=== PATIENT | male | born 1970 | race Caucasian/White ===

== ENCOUNTER 2017-11-17 22:21 | Emergency (ER) | payer SELFPAY ==
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
[2017-11-17] MEDS ORDERED: HYDROCODONE/APAP 7.5/325 MG TAB ONE (23:14)
[2017-11-17] MEDS ORDERED: MUPIROCIN 2% OINT 22GM TUBE TOP ONE (23:15)
[2017-11-17 23:31] VITALS: BP 121/84; O2SAT 98
== END 2017-11-17 23:21 | disposition home or self-care (01) ==
LOC: ER 22:21
DX: S90.822A Blister (nonthermal), left foot, initial encounter (principal); X58.XXXA Exposure to other specified factors, initial encounter; Y93.89 Activity, other specified; Y92.89 Other specified places as the place of occurrence of the external cause; Z79.82 Long term (current) use of aspirin; I10 Essential (primary) hypertension; I25.2 Old myocardial infarction; F31.9 Bipolar disorder, unspecified; F32.9 Major depressive disorder, single episode, unspecified
CPT/HCPCS: 99283

== ENCOUNTER 2017-12-30 18:15 | Emergency (ER) | payer SELFPAY ==
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
--- OUTSIDE RECORDS SUMMARY | 2017-12-30 18:16 | XMS REPORT | Clinical Summary ---
:1970 Author Organization [facility] Address [address] [place] [address] Phone Care Team Providers Name Role Phone Unavailable Primary Care Provider Unavailable Allergies Active Allergy Reactions Severity Noted Date Comments Hydrocodone-Acetaminophen Rash High 11/26/2017 Current Medications Prescription Sig. Disp. Refills Start Date End Date Status venlafaxine Take 150 mg by Active (EFFEXOR-XR) 150 mouth daily. MG 24 hr capsule gabapentin Take 300 mg by Active (NEURONTIN) 300 MG mouth 4 (four) capsule times daily. risperiDONE Take 3 mg by Active (RISPERDAL) 3 MG mouth daily. tablet aspirin 81 MG Take 81 mg by Active chewable tablet mouth daily. carvedilol (COREG) Take 1 tablet 30 tablet 0 11/27/2017 11/27/2018 Active 12.5 MG tablet (12.5 mg total) by mouth 2 (two) times daily with breakfast and dinner. propranolol Take 30 mg by 11/27/2017 Discontinued (INDERAL) 20 MG mouth 2 (two) tablet times daily. Active Problems Problem Noted Date Chest pain 11/27/2017 Anxiety 11/27/2017 Essential hypertension 11/27/2017 Bipolar 1 disorder (HCC) 11/27/2017 Migraine 11/27/2017 Tobacco abuse 11/27/2017 Encounters Date Type Specialty Care Team Description 11/27/2017 Orders Only General Internal Medicine 11/26/2017 - Hospital Encounter Cardiology Jeffreyan, Bipolar 1 disorder 11/27/2017 Ashkan Valdes ([facility]) after 12/29/2016 Family History Medical History Relation Name Comments Cancer Father Heart disease Father No Known Problem Mother Relation Name Status Comments Father Mother Social History Tobacco Use Types Packs/Day Years Used Date Current Every Day Smoker 0.5 39 Smokeless Tobacco: Current User Chew Tobacco Cessation: Counseling Given: Yes Alcohol Use Drinks/Week oz/Week Comments No Sex Assigned at Date Recorded Not on file Last Filed Vital Signs Vital Sign Reading Time Taken Blood Pressure 126/80 11/27/2017 3:46 PM CDT Pulse 57 11/27/2017 3:46 PM CDT Temperature 36.3 C (97.3 F) 11/27/2017 3:46 PM CDT Respiratory Rate 18 11/27/2017 3:46 PM CDT Oxygen Saturation 96% 11/27/2017 3:46 PM CDT Inhaled Oxygen Concentration - - Weight 65 kg (143 lb 4.8 oz) 11/27/2017 7:39 AM CDT Height 182.9 cm (6') 11/26/2017 9:47 PM CDT Body Mass Index 19.43 11/27/2017 7:39 AM CDT Plan of Treatment Not on file Results EKG-SCANNED (11/30/2017 11:21 AM)RHYTHM STRIP - SCAN (11/30/2017 11:21 AM) ECHOCARDIOGRAM REPORT - SCAN (11/29/2017 8:50 AM)Transthoracic 2D echo w/ doppler (cw/pw/color) (11/27/2017 5:44 PM) Component Value Ref Range Ejection Fraction Specimen Performing Laboratory [facility] ECHO HEARTLAB MKCKESSON CPACS Narrative Transthoracic Echocardiography Report (TTE) Demographics Patient Name ABBIE TABARES Date of Study 11/27/2017 [id number] Male Visit Number [id number] Unknown [id number] Room Number [id number] Number Date of Birth1970Referring Physician BANG Cantu Age47 year(s)Step Down Specialist Abdifatah Arredondo [facility] AnalystIzoldzhane Buitrago Interpreting Leanna Johnson MD Procedure Type of Study TTE procedure:2DECHO W DOPPLER(CW/PW/COLOR) (Routine) Indications:Acute Chest Pain/ Suspected CAD. Clinical History HGB 12.3 HCT 37.8 % Diabetes Hypertension Myocardial Infarction Height: 72 inches Weight: 64.86 kg (143 lbs) BSA: 1.85 m^2 BMI: 19.39 kg/m^2 HR: 58 bpm BP: 117/72 mmHg Summary The left ventricle is chamber size (by PSLAX dimension) is normal (male - LVIDd 4.2-5.8cm) . Normal LV wall thickness. The following segment(s) appear possibly hypokinetic: basal septum,basal inferior . The other segments have low normal contractility. Global LV systolic function mildly reduced . LVEF by Salcedo's method of disk assessment is low normal (50-55%) . Normal (cardiac index 2-3 L/min/m2) cardiac output state at rest is noted. Grade 2 diastolic dysfunction (moderately increased LA pressure). No pericardial effusion is visualized. Aortic root size (SInus of Valsalva diameter) is normal . A trace of tricuspid regurgitation. Estimated peak systolic PA pressure is 25-30 mmHg . Previous Study No prior exam available for comparison. Signature Findings Left Ventricle The left ventricle is chamber size (by PSLAX dimension) is normal (male - LVIDd 4.2-5.8cm) . Normal LV wall thickness. The following segment(s) appear possibly hypokinetic: basal septum,basal inferior . The other segments have low normal contractility. Global LV systolic function mildly reduced . LVEF by Salcedo's method of disk assessment is low normal (50-55 %) . Normal (cardiac index 2-3 L/min/m2) cardiac output state at rest is noted. Grade 2 diastolic dysfunction (moderately increased LA pressure). Left AtriumLA size is moderately enlarged (42-48 ml/m2 ) . Right VentricleThe right ventricular chamber size and systolic function are within normal limits. Right Atrium RA cavity size is normal . Aortic Valve Normal AoV structure. Mitral Valve Normal MV structure. Tricuspid ValveTV structure is normal. A trace of tricuspid regurgitation. Estimated peak systolic PA pressure is 25-30 mmHg . Pulmonic Valve Normal PV structure and function. AortaAortic root size (SInus of Valsalva diameter) is normal . PericardiumNo pericardial effusion is visualized. IVC/SVC/PA/PV/PleuralThe estimated RA pressure by IVC dynamics 5-10mmHg . Chambers/Structures Left Atrium LA Volume: 81.23 ml LA Area: 18.32 cm^ 2 LA Vol. Index: 44 ml/m^2 Left Ventricle LVIDd: 4.85 cmLVEDV: 108.75 ml LV Septum Diastolic: 0.84 cm LV PW Diastolic: 0.84 cm LVEDV Salcedo's:122.24 ml LVESV Salcedo's:61.12 ml LVEF Salcedo's: 50 % LVEDVI: 66 ml/m^2 LVESVI: 33 ml/m^2 LVOT Diameter: 2.13 cm Right Ventricle TAPSE: 1.75 cm Aorta Ao Root S of [place]il[place].: 3.25 cm Doppler/Quantitative Measurements Mitral Valve MV Peak E-Wave: 0.79 m/sMV Peak A-Wave: 0.45 m /s E/A Ratio: 1.77 Peak Gradient: 2.52 mmHg Deceleration Time: 218 msec MV Salbador. Peak: Tissue Doppler E' Lateral Velocity: 0.12 m/s E/E': 6.87 Aortic Valve Peak Velocity: 1.43 m/sMean Velocity: 1.04 m/s Peak Gradient: 8.16 mmHg Mean Gradient: 4.88 mmHg AV Area (continuity): 2.11 cm^2 AV VTI: 30.36 cm AV DVI: 0.59 LVOT Peak Velocity: 0.88 m/s Peak Gradient: 3.08 mmHg Mean Velocity: 0.59 m/s Mean Gradient: 1.63 mmHg LVOT Diameter: 2.13 cmLVOT VTI: 17.96 cm LVOT Area: 3.56 cm^2LVOT SV:63.96 ml LVOT CO: 3.71 l/min LVOT CI: 2.01 l/min/m^2 Tricuspid Valve TR Velocity: 2.1 m/s TR Gradient: 17.58 mmHg Procedure Note Interface, External Ris In - 11/29/2017 8:24 AM CDT Transthoracic Echocardiography Report (TTE) Demographics Patient Name ABBIE TABARES Date of Study 11/27/2017 Gender Male Visit Number [id number] Race Unknown Room Number 1455 Number Date of 1970 Referring Physician BANG Cantu Age 47 year(s) Step Down Specialist Abdifatah Arredondo [facility] Paratransit Operator Gabo Buitrago Interpreting Usama Johnson Physician Procedure Type of Study TTE procedure:2DECHO W DOPPLER(CW/PW/COLOR) (Routine) Indications:Acute Chest Pain/ Suspected CAD. Clinical History HGB 12.3 HCT 37.8 % Diabetes Hypertension Myocardial Infarction Height: 72 inches Weight: 64.86 kg (143 lbs) BSA: 1.85 m^2 BMI: 19.39 kg/m^2 HR: 58 bpm BP: 117/72 mmHg Summary The left ventricle is chamber size (by PSLAX dimension) is normal (male - LVIDd 4.2-5.8cm) . Normal LV wall thickness. The following segment(s) appear possibly hypokinetic: basal septum,basal inferior . The other segments have low normal contractility. Global LV systolic function mildly reduced . LVEF by Salcedo's method of disk assessment is low normal (50-55%) . Normal (cardiac index 2-3 L/min/m2) cardiac output state at rest is noted. Grade 2 diastolic dysfunction (moderately increased LA pressure). No pericardial effusion is visualized. Aortic root size (SInus of Valsalva diameter) is normal . A trace of tricuspid regurgitation. Estimated peak systolic PA pressure is 25-30 mmHg . Previous Study No prior exam available for comparison. Signature Findings Left Ventricle The left ventricle is chamber size (by PSLAX dimension) is normal (male - LVIDd 4.2-5.8cm) . Normal LV wall thickness. The following segment(s) appear possibly hypokinetic: basal septum,basal inferior . The other segments have low normal contractility. Global LV systolic function mildly reduced . LVEF by Salcedo's method of disk assessment is low normal (50-55%) . Normal (cardiac index 2-3 L/min/m2) cardiac output state at rest is noted. Grade 2 diastolic dysfunction (moderately increased LA pressure). Left Atrium LA size is moderately enlarged (42-48 ml/m2) . Right Ventricle The right ventricular chamber size and systolic function are within normal limits. Right Atrium RA cavity size is normal . Aortic Valve Normal AoV structure. Mitral Valve Normal MV structure. Tricuspid Valve TV structure is normal. A trace of tricuspid regurgitation. Estimated peak systolic PA pressure is 25-30 mmHg . Pulmonic Valve Normal PV structure and function. Aorta Aortic root size (SInus of Valsalva diameter) is normal . Pericardium No pericardial effusion is visualized. IVC/SVC/PA/PV/Pleural The estimated RA pressure by IVC dynamics 5-10mmHg . Chambers/Structures Left Atrium LA Volume: 81.23 ml LA Area: 18.32 cm^2 LA Vol. Index: 44 ml/m^2 Left Ventricle LVIDd: 4.85 cm LVEDV:108.75 ml LV Septum Diastolic: 0.84 cm LV PW Diastolic: 0.84 cm LVEDV Salcedo's:122.24 ml LVESV Salcedo's:61.12 ml LVEF Salcedo's: 50 % LVEDVI: 66 ml/m^2 LVESVI: 33 ml/m^2 LVOT Diameter: 2.13 cm Right Ventricle TAPSE: 1.75 cm Aorta Ao Root S of [place].: 3.25 cm Doppler/Quantitative Measurements Mitral Valve MV Peak E-Wave: 0.79 m/s MV Peak A-Wave: 0.45 m/s E/A Ratio: 1.77 Peak Gradient: 2.52 mmHg Deceleration Time: 218 msec MV Salbador. Peak: Tissue Doppler E' Lateral Velocity: 0.12 m/s E/E': 6.87 Aortic Valve Peak Velocity: 1.43 m/s Mean Velocity: 1.04 m/s Peak Gradient: 8.16 mmHg Mean Gradient: 4.88 mmHg AV Area (continuity): 2.11 cm^2 AV VTI: 30.36 cm AV DVI: 0.59 LVOT Peak Velocity: 0.88 m/s Peak Gradient: 3.08 mmHg Mean Velocity: 0.59 m/s Mean Gradient: 1.63 mmHg LVOT Diameter: 2.13 cm LVOT VTI: 17.96 cm LVOT Area: 3.56 cm^2 LVOT SV:63.96 ml LVOT CO: 3.71 l/min LVOT CI: 2.01 l/min/m^2 Tricuspid Valve TR Velocity: 2.1 m/s TR Gradient: 17.58 mmHg NM myocardial perfusion PET (rest and stress) (11/27/2017 9:27 AM) Specimen Performing Laboratory [facility] FINAL REPORT PROCEDURE: Rest/Stress MYOCARDIAL PERFUSION PET with regadenoson\XA9\ CPT CODE: 47598 INDICATION: Chest pain, multiple risk factors for CAD HISTORY: Cardiac risk factors: Diabetes, hypertension, tobacco. Other cardiovascular history: Previous OK. Recent cardiac symptoms: Chest pain. PROTOCOL: Limited [...] is greater than 70%. IMPRESSION: 1. Normal study.2. Appropriate pharmacologic stress.3. Normal myocardial perfusion.4. Normal resting LV function. No deterioration of function is noted with pharmacologic stress.5. Normal extracardiac tracer distribution.6. No previous [facility] study for comparison. NONINVASIVE RISK STRATIFICATION: The above findings are considered low risk (<1% annual mortality rate) based on the following criterion: - Normal or small myocardial perfusion defect at rest or with stress ([facility]. 2012;59(9):584-01.) Signed: Bekah Love MD Report Verified Date/Time:11/27/2017 15:30:18 Reading Location: [address] Reading Room Procedure Note Interface, External Ris In - 11/27/2017 3:32 PM CDT FINAL REPORT PROCEDURE: Rest/Stress MYOCARDIAL PERFUSION PET with regadenoson\XA9\ CPT CODE: 98654 INDICATION: Chest pain, multiple risk factors for CAD HISTORY: Cardiac risk factors: Diabetes, hypertension, tobacco. Other cardiovascular history: Previous OK. Recent cardiac symptoms: Chest pain. PROTOCOL: Limited [...] Normal extracardiac tracer distribution. 6. No previous [facility] study for comparison. NONINVASIVE RISK STRATIFICATION: The above findings are considered low risk (<1% annual mortality rate) based on the following criterion: - Normal or small myocardial perfusion defect at rest or with stress ([facility]. 2012;59(9):857-81.) Signed: Bekah Love MD Report Verified Date/Time: 11/27/2017 15:30:18 Reading Location: [place] [id number] Reading Room Treadmill tolerance(Non-Nuclear Treadmill) (11/27/2017 9:22 AM) Specimen Performing Laboratory [employer] Narrative Protocol Name Regadenoson Time In Exercise Phase 00:01:00 Max. Systolic BP 87 mmHg Max Diastolic BP 54 mmHg Max Heart Rate 87 BPM Max Predicted Heart Rate 172 BPM Reason For Termination Predetermined end point Reason for Test Chest Pain Target HR Formula (220 - Age)*100% Arrhythmias Premature Ventricular Contractions Resting ECG sinus bradycardia ST Changes No Significant Changes Overall Impression Indeterminate due to pharmacological stress Chest Pain CHEST TIGHTNESS HR Response To Exercise BP Response To Exercise ASA Atorvastatin propranolol Confirmed by fellow Bakari Xiong ([id number]) on 11/27/2017 10:55:09 AM Confirmed by Deshawn Celestin ([id number]) on 12/03/2017 4:58:11 PM Procedure Note Interface, External Ris In - 12/03/2017 4:58 PM CDT Protocol Name Regadenoson Time In Exercise Phase 00:01:00 Max. Systolic BP 87 mmHg Max Diastolic BP 54 mmHg Max Heart Rate 87 BPM Max Predicted Heart Rate 172 BPM Reason For Termination Predetermined end point Reason for Test Chest Pain Target HR Formula (220 - Age)*100% Arrhythmias Premature Ventricular Contractions Resting ECG sinus bradycardia ST Changes No Significant Changes Overall Impression Indeterminate due to pharmacological stress Chest Pain CHEST TIGHTNESS HR Response To Exercise BP Response To Exercise ASA Atorvastatin propranolol Confirmed by fellow Bakari Xiong ([id number]) on 11/27/2017 10:55:09 AM Confirmed by Deshawn Celestin ([id number]) on 12/03/2017 4:58:11 PM ECG 12 lead (11/27/2017 9:20 AM)Only the most recent of3 resultswithin the time period is included. Specimen Performing Laboratory [facility] Narrative Ventricular Rate 57 BPM Atrial Rate 57 BPM P-R Interval 222 ms QRS Duration 90 ms Q-T Interval 436 ms QTC Calculation(Bazett) 424 ms P Mobile 81 degrees R Mobile 91 degrees T Mobile 83 degrees Sinus bradycardia with 1st degree A-V block Rightward axis Borderline ECG Confirmed by MD BERRY JOSEPH P ([id number]) on 11/28/2017 7:06:11 AM Procedure Note Interface, External Ris In - 11/28/2017 7:06 AM CDT Ventricular Rate 57 BPM Atrial Rate 57 BPM P-R Interval 222 ms QRS Duration 90 ms Q-T Interval 436 ms QTC Calculation(Bazett) 424 ms P Mobile 81 degrees R Mobile 91 degrees T Mobile 83 degrees Sinus bradycardia with 1st degree A-V block Rightward axis Borderline ECG Confirmed by MD BERRY JOSEPH P ([id number]) on 11/28/2017 7:06:11 AM CBC with platelet count + automated diff (11/27/2017 5:48 AM)Only the most recent of2 resultswithin the time period is included. Component Value Ref Range WBC 9.5 3.5 - 10.5 K/L RBC 3.94 (L) 4.63 - 6.08 M/L Hemoglobin 12.3 (L) 13.7 - 17.5 GM/DL Hematocrit 37.8 (L) 40.1 - 51.0 % MCV 95.9 (H) 79.0 - 92.2 fL MCH 31.2 25.7 - 32.2 pg MCHC 32.5 32.3 - 36.5 GM/DL RDW 13.8 11.6 - 14.4 % Platelets 187 150 - 450 K/CU MM MPV 10.5 9.4 - 12.4 fL nRBC 0 0 - 0 /100 WBC % Neutros 56 % % Lymphs 32 % % Monos 7 % % Eos 5 % % Baso 1 % # Neutros 5.28 1.78 - 5.38 K/L # Lymphs 3.03 1.32 - 3.57 K/L # Monos 0.69 0.30 - 0.82 K/L # Eos 0.45 0.04 - 0.54 K/L # Baso 0.06 0.01 - 0.08 K/L Immature Granulocytes-Relative 0 0 - 1 % Specimen Performing Laboratory Blood - Arm, Right [facility] [address] [place] [address] Troponin I (11/27/2017 5:48 AM)Only the most recent of2 resultswithin the time period is included. Component Value Ref Range Troponin I <0.01 0.00 - 0.03 ng/mL Specimen Performing Laboratory Blood - Arm, [address] [address] Narrative Troponin I (TnI) levels must be interpreted [...] failure, acidosis, acute neurological disease, and persistent tachyarrhythmia. CBC with platelet count + automated diff (11/27/2017 5:48 AM)Only the most recent of2 resultswithin the time period is included. Specimen Performing Laboratory Blood Narrative The following orders were created for panel order CBC with platelet count + automated diff. Procedure Abnormality Status --------- ------ CBC with platelet count ...[[id number]]AbnormalFinal result Please view results for these tests on the individual orders. Magnesium (11/27/2017 5:48 AM)Only the most recent of2 resultswithin the time period is included. Component Value Ref Range Magnesium 2.7 (H) 1.6 - 2.6 mg/dL Specimen Performing Laboratory Blood - Arm, [address] [address] Basic metabolic panel (11/27/2017 5:48 AM)Only the most recent of2 resultswithin the time period is included. Component Value Ref Range Sodium 136 136 - 145 meq/L Potassium 3.9 3.5 - 5.1 meq/L Chloride 108 (H) 98 - 107 meq/L CO2 23 22 - 29 meq/L BUN 12 7 - 21 mg/dL Creatinine 0.85 0.57 - 1.25 mg/dL Glucose 92 70 - 105 mg/dL Calcium 8.5 8.4 - 10.2 mg/dL EGFR Comment: INSUFFICIENT CLINICAL DATA TO CALCULATE mL/min/1.73 sq m ESTIMATED GFR. Specimen Performing Laboratory Blood - Arm, Right [address] [address] Hemoglobin A1c (11/27/2017 12:49 AM) Component Value Ref Range Hemoglobin A1C 4.9 4.3 - 6.1 % Specimen Performing Laboratory Blood [address] [address] Hepatic function panel (11/27/2017 12:49 AM) Component Value Ref Range Protein, Total 6.1 6.0 - 8.3 gm/dL Albumin 3.8 3.5 - 5.0 g/dL Total Bilirubin 0.2 0.2 - 1.2 mg/dL Bilirubin, Direct 0.1 0.1 - 0.5 mg/dL Alkaline Phosphatase 108 40 - 150 U/L AST 9 5 - 34 U/L ALT 8 6 - 55 U/L Specimen Performing Laboratory Blood [address] [address] Lipid panel (11/27/2017 12:49 AM) Component Value Ref Range Triglycerides 130 mg/dL Cholesterol 164 mg/dL HDL 31 mg/dL LDL Calculated 107 mg/dL Specimen Performing Laboratory Blood [address] [address] Narrative Triglyceride Reference Range: Low Risk <150 [id number] High Risk 200-499 Very High Risk>=500 Cholesterol Reference Range: Low Risk <200 [id number] High Risk>240 HDL Cholesterol Reference Range: Low Risk >=60 High Risk <40 LDL Cholesterol Reference Range: Optimal<100 Near [id number] Very High >=190 after 12/29/2016
[2017-12-30] MEDS ORDERED: FENTANYL CITR 100 MCG/2 ML ONE (20:06)
--- NOTE | 2017-12-30 20:20 | RAD REPORT ---
EXAM DESCRIPTION: RAD - Knee Right 3 View - 12/30/2017 8:14 pm CLINICAL HISTORY: PAIN Trauma COMPARISON: Knee Right 3 View dated 12/07/2016 FINDINGS: No fracture or dislocation is seen.
--- NOTE | 2017-12-30 20:21 | RAD REPORT ---
EXAM DESCRIPTION: RAD - Hip Right 2 View - 12/30/2017 8:14 pm CLINICAL HISTORY: PAIN Trauma COMPARISON: No comparisons FINDINGS: Mild osteoarthritis affects the right hip. No fracture or dislocation.
[2017-12-30] MEDS ORDERED: DIAZEPAM 2 MG TABLET ONE (20:37)
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
[2017-12-30 21:42] VITALS: BP 108/74; TEMP 97.6
[2017-12-30 21:44] VITALS: O2SAT 98
== END 2017-12-30 21:23 | disposition home or self-care (01) ==
LOC: ER 18:15
DX: M25.551 Pain in right hip (principal); W18.09XA Striking against other object with subsequent fall, initial encounter; Y93.9 Activity, unspecified; Y92.009 Unspecified place in unspecified non-institutional (private) residence as the place of occurrence of the external cause; Z79.82 Long term (current) use of aspirin; Z88.5 Allergy status to narcotic agent; Z91.040 Latex allergy status; Z91.048 Other nonmedicinal substance allergy status; I10 Essential (primary) hypertension; F31.9 Bipolar disorder, unspecified; F17.210 Nicotine dependence, cigarettes, uncomplicated
CPT/HCPCS: 96372; 99283; J3010

== ENCOUNTER 2018-02-11 15:04 | Emergency (ER) | payer SELFPAY ==
--- OUTSIDE RECORDS SUMMARY | 2018-02-11 15:07 | XMS REPORT ---
:1970 [facility] [address] [place] [address] Care Team Providers Name Role Phone TREVOR [...] PATIENT ID: PERFUSION MULTIPLE 15:30:00 exam:->chest pain, [id number] PROCEDURE: STUDIES, REST AND multiple risk Rest/Stress MYOCARDIAL STRESS factors for CAD PERFUSION PET with regadenoson\XA9\ CPT CODE: 89230 INDICATION: Chest pain, multiple risk factors for CAD HISTORY: Cardiac risk factors: Diabetes, hypertension, tobacco. Other cardiovascular history: Previous [facility]. Recent cardiac symptoms: Chest pain. PROTOCOL: Limited [...] tracer distribution. 6. No previous [facility] study for comparison. NONINVASIVE RISK STRATIFICATION: The above findings are considered low risk (<1% annual mortality rate) based on the following criterion:- Normal or small myocardial perfusion defect at rest or with stress(JACC. 2012;59(9):857-81.) Signed: Alfred Cota MDReport Verified Date/Time: 11/27/2017 15:30:18 Reading Location: [place] [id number] Reading Room GLOBIN A1C 2017-11-27 09:48:00 Test Item Value Reference Range Comments HEMOGLOBIN A1C (BEAKER) (test jfwj=063) 4.9 % 4.3-6.1 BASIC METABOLIC [id number] 06:47:00 Test Item Value Reference Range Comments SODIUM (BEAKER) (test 136 meq/L 136-145 hlwm=260) POTASSIUM (BEAKER) (test 3.9 meq/L 3.5-5.1 imdn=133) CHLORIDE (BEAKER) (test 108 meq/L 98-107 cllr=825) CO2 (BEAKER) (test 23 meq/L 22-29 dhpo=638) BLOOD UREA NITROGEN 12 mg/dL 7-21 (BEAKER) (test pkrj=675) CREATININE (BEAKER) (test 0.85 mg/dL 0.57-1.25 cttf=771) GLUCOSE RANDOM (BEAKER) 92 mg/dL 70-105 (test yjii=232) CALCIUM (BEAKER) (test 8.5 mg/dL 8.4-10.2 gzji=174) EGFR (BEAKER) (test mL/min/1.73 sq m INSUFFICIENT CLINICAL DATA xwtz=1749) TO CALCULATE ESTIMATED GFR. TROPONIN [id number] 06:44:00 Test Item Value Reference Range Comments TROPONIN I (BEAKER) (test xeor=705) < ng/mL 0.00-0.03 Troponin I (TnI) levels [...] failure, acidosis, acute neurological disease, and persistent tachyarrhythmia.[id number] 06:43:00 Test Item Value Reference Range Comments MAGNESIUM (BEAKER) (test cmhm=496) 2.7 mg/dL 1.6-2.6 CBC W/PLT COUNT & AUTO [id number] 06:09:00 Test Item Value Reference Range Comments WHITE BLOOD CELL COUNT (BEAKER) (test ghqc=890) 9.5 K/ L 3.5-10.5 RED BLOOD CELL COUNT (BEAKER) (test vfhm=617) 3.94 M/ L 4.63-6.08 HEMOGLOBIN (BEAKER) (test wcvr=845) 12.3 GM/DL 13.7-17.5 HEMATOCRIT (BEAKER) (test zuzs=716) 37.8 % 40.1-51.0 MEAN CORPUSCULAR VOLUME (BEAKER) (test ibee=983) 95.9 fL 79.0-92.2 MEAN CORPUSCULAR HEMOGLOBIN (BEAKER) (test 31.2 pg 25.7-32.2 ogpg=847) MEAN CORPUSCULAR HEMOGLOBIN CONC (BEAKER) (test 32.5 GM/DL 32.3-36.5 mewi=779) RED CELL DISTRIBUTION WIDTH (BEAKER) (test 13.8 % 11.6-14.4 rryd=999) PLATELET COUNT (BEAKER) (test vqpv=534) 187 K/CU MM 150-450 MEAN PLATELET VOLUME (BEAKER) (test vttt=124) 10.5 fL 9.4-12.4 NUCLEATED RED BLOOD CELLS (BEAKER) (test 0 /100 WBC 0-0 rwno=670) NEUTROPHILS RELATIVE PERCENT (BEAKER) (test 56 % rrwj=952) LYMPHOCYTES RELATIVE PERCENT (BEAKER) (test 32 % xtev=484) MONOCYTES RELATIVE PERCENT (BEAKER) (test 7 % eeje=261) EOSINOPHILS RELATIVE PERCENT (BEAKER) (test 5 % fxqf=840) BASOPHILS RELATIVE PERCENT (BEAKER) (test 1 % rmav=158) NEUTROPHILS ABSOLUTE COUNT (BEAKER) (test 5.28 K/ L 1.78-5.38 rdjh=347) LYMPHOCYTES ABSOLUTE COUNT (BEAKER) (test 3.03 K/ L 1.32-3.57 hscb=274) MONOCYTES ABSOLUTE COUNT (BEAKER) (test 0.69 K/ L 0.30-0.82 xlat=305) EOSINOPHILS ABSOLUTE COUNT (BEAKER) (test 0.45 K/ L 0.04-0.54 saqt=484) BASOPHILS ABSOLUTE COUNT (BEAKER) (test 0.06 K/ L 0.01-0.08 vojw=922) IMMATURE GRANULOCYTES-RELATIVE PERCENT (BEAKER) 0 % 0-1 (test vuhq=6607) TROPONIN [id number] 01:49:00 Test Item Value Reference Range Comments TROPONIN I (BEAKER) (test wcug=680) < ng/mL 0.00-0.03 Troponin I (TnI) levels [...] acute neurological disease, and persistent tachyarrhythmia.BASIC METABOLIC [id number] 01:49:00 Test Item Value Reference Range Comments SODIUM (BEAKER) (test 137 meq/L 136-145 rkcm=307) POTASSIUM (BEAKER) (test 3.7 meq/L 3.5-5.1 jvfx=793) CHLORIDE (BEAKER) (test 109 meq/L 98-107 rmjw=014) CO2 (BEAKER) (test 23 meq/L 22-29 abnx=078) BLOOD UREA NITROGEN 12 mg/dL 7-21 (BEAKER) (test hegc=849) CREATININE (BEAKER) (test 0.91 mg/dL 0.57-1.25 rrjl=747) GLUCOSE RANDOM (BEAKER) 121 mg/dL 70-105 (test ozxt=025) CALCIUM (BEAKER) (test 8.8 mg/dL 8.4-10.2 qlxf=737) EGFR (BEAKER) (test mL/min/1.73 sq m INSUFFICIENT CLINICAL DATA oehv=8085) TO CALCULATE ESTIMATED GFR. [id number] 01:42:00 Test Item Value Reference Range Comments MAGNESIUM (BEAKER) (test vbwc=323) 2.2 mg/dL 1.6-2.6 LIPID [id number] 01:42:00 Test Item Value Reference Range Comments TRIGLYCERIDES (BEAKER) (test juuz=408) 130 mg/dL CHOLESTEROL (BEAKER) (test hthe=286) 164 mg/dL HDL CHOLESTEROL (BEAKER) (test ktvs=958) 31 mg/dL LDL CHOLESTEROL CALCULATED (BEAKER) (test 107 mg/dL ccro=681) Triglyceride Reference Range: Low Risk <150 Borderline 150- 199 High Risk 200-499 Very High Risk >=500Cholesterol Reference Range: Low Risk <200 Borderline 200-239 High Risk > 240HDL Cholesterol Reference Range: Low Risk >=60 High Risk <40LDL Cholesterol Reference Range: Optimal <100 Near Optimal 100-129 Borderline 130-159 High 160-189 Very High >=190HEPATIC FUNCTION [id number] 01:42:00 Test Item Value Reference Range Comments TOTAL PROTEIN (BEAKER) (test mjnl=674) 6.1 gm/dL 6.0-8.3 ALBUMIN (BEAKER) (test jlob=0170) 3.8 g/dL 3.5-5.0 BILIRUBIN TOTAL (BEAKER) (test qesk=083) 0.2 mg/dL 0.2-1.2 BILIRUBIN DIRECT (BEAKER) (test arxi=245) 0.1 mg/dL 0.1-0.5 ALKALINE PHOSPHATASE (BEAKER) (test pzco=920) 108 U/L 40-150 AST (SGOT) (BEAKER) (test gkao=876) 9 U/L 5-34 ALT (SGPT) (BEAKER) (test hdax=135) 8 U/L 6-55 CBC W/PLT COUNT & AUTO [id number] 00:59:00 Test Item Value Reference Range Comments WHITE BLOOD CELL COUNT (BEAKER) (test nrtg=896) 12.9 K/ L 3.5-10.5 RED BLOOD CELL COUNT (BEAKER) (test iply=525) 4.07 M/ L 4.63-6.08 HEMOGLOBIN (BEAKER) (test lqgc=669) 12.8 GM/DL 13.7-17.5 HEMATOCRIT (BEAKER) (test zifg=315) 39.0 % 40.1-51.0 MEAN CORPUSCULAR VOLUME (BEAKER) (test muho=381) 95.8 fL 79.0-92.2 MEAN CORPUSCULAR HEMOGLOBIN (BEAKER) (test 31.4 pg 25.7-32.2 mbkd=498) MEAN CORPUSCULAR HEMOGLOBIN CONC (BEAKER) (test 32.8 GM/DL 32.3-36.5 stvw=161) RED CELL DISTRIBUTION WIDTH (BEAKER) (test 13.9 % 11.6-14.4 gqla=542) PLATELET COUNT (BEAKER) (test xykh=835) 210 K/CU MM 150-450 MEAN PLATELET VOLUME (BEAKER) (test hahd=276) 10.4 fL 9.4-12.4 NUCLEATED RED BLOOD CELLS (BEAKER) (test 0 /100 WBC 0-0 suid=289) NEUTROPHILS RELATIVE PERCENT (BEAKER) (test 60 % quzm=804) LYMPHOCYTES RELATIVE PERCENT (BEAKER) (test 29 % asuu=667) MONOCYTES RELATIVE PERCENT (BEAKER) (test 6 % zazr=646) EOSINOPHILS RELATIVE PERCENT (BEAKER) (test 4 % pwwv=738) BASOPHILS RELATIVE PERCENT (BEAKER) (test 0 % plpx=738) NEUTROPHILS ABSOLUTE COUNT (BEAKER) (test 7.69 K/ L 1.78-5.38 cktd=434) LYMPHOCYTES ABSOLUTE COUNT (BEAKER) (test 3.75 K/ L 1.32-3.57 ugxj=149) MONOCYTES ABSOLUTE COUNT (BEAKER) (test 0.82 K/ L 0.30-0.82 vagc=038) EOSINOPHILS ABSOLUTE COUNT (BEAKER) (test 0.57 K/ L 0.04-0.54 xcgn=067) BASOPHILS ABSOLUTE COUNT (BEAKER) (test 0.05 K/ L 0.01-0.08 mkeu=657) IMMATURE GRANULOCYTES-RELATIVE PERCENT (BEAKER) 0 % 0-1 (test exgp=5238)
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
[2018-02-11] MEDS ORDERED: MORPHINE 4 MG/ML SYR ONE (15:35)
[2018-02-11] MEDS ORDERED: ONDANSETRON 4 MG (ODT) TAB ONE (15:35)
--- NOTE | 2018-02-11 16:17 | RAD REPORT ---
EXAM DESCRIPTION: CT - Stone Protocol - 02/11/2018 3:55 pm CLINICAL HISTORY: Flank pain. lower abd/right groin swelling, dysuria;Abd pain COMPARISON: No comparisons TECHNIQUE: Axial images were obtained without oral or IV contrast. Lack of contrast limits solid org an and vascular assessment. The [id number] spans the entirety of the system partially obscuring uppermost abdomen and lung bases. Coronal reformatted images were obtained and reviewed. All CT scans are performed using dose optimization technique as appropriate and may include automated exposure control or mA/KV adjustment according to patient size. FINDINGS: The lower lung scott are clear. Imaged portions of the liver and spleen show no suspicious findings on non-contrast imaging. The panc reas and adrenal glands are normal. No pathologic lymphadenopathy in the abdomen or pelvis. Several left renal calculi seen, the largest measuring 5 mm in the inferior calyx left kidney. No add itional calculus or hydronephrosis. No bowel obstruction, free air, free fluid or abscess. Normal appendix noted.Sigmoid diverticulosis i s present without diverticulitis. Prominent L5-S1 spondylosis with vacuum disc degeneration. Mild urinary bladder wall thickening seen. IMPRESSION: Left nephrolithiasis without hydronephrosis. Urinary bladder wall thickening may be due to incomplete distention or cystitis.
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
[2018-02-11 17:03] LABS: Urine Blood NEGATIVE (NEG); Urine Glucose NEGATIVE (NEG); Urine Protein NEGATIVE (NEG); Urine Specific Gravity 1.015 (1.005-1.030); Urine pH 7.5 (5.0-7.0)
[2018-02-11 18:21] VITALS: BP 109/88; TEMP 97.2; O2SAT 99
== END 2018-02-11 16:51 | disposition home or self-care (01) ==
LOC: ER 15:04
DX: S76.211A Strain of adductor muscle, fascia and tendon of right thigh, initial encounter (principal); X58.XXXA Exposure to other specified factors, initial encounter; Y93.02 Activity, running; Y92.9 Unspecified place or not applicable; Z79.82 Long term (current) use of aspirin; Z88.5 Allergy status to narcotic agent; Z91.040 Latex allergy status; Z91.048 Other nonmedicinal substance allergy status; F17.210 Nicotine dependence, cigarettes, uncomplicated; I10 Essential (primary) hypertension; F41.9 Anxiety disorder, unspecified; F32.9 Major depressive disorder, single episode, unspecified
CPT/HCPCS: 74176; 76377; 81003; 96372; 99284

== ENCOUNTER 2019-02-14 17:48 | Emergency (ER) | payer OTHER ==
--- OUTSIDE RECORDS SUMMARY | 2019-02-14 17:51 | XMS REPORT ---
:1970 [facility] Address [address] [place] [address] [address] [place] [address] Care Team Providers Name Role Phone TREVOR MULLEN Unavailable Unavailable Problems This patient has no known problems. Allergies, Adverse Reactions, Alerts This patient has no known allergies or adverse reactions. Medications This patient has no known medications. Results Test Description Test Time Test Comments Text Results Atomic Results Result Comments ISTAT CHEM 8 2018-08-30 11:05:00 Test Item Value Reference Range Comments ISTATNA (test code=ISTATNA) 142 MMOL/L 137-145 ISTATK (test code=ISTATK) 3.6 MMOL/L 3.6-5.0 ISTATCL (test code=ISTATCL) 106 MMOL/L 98-107 ISTIONCA (test code=ISTIONCA) 1.22 MMOL/L 1.12-1.32 ISTCO2 (test code=ISTCO2) 27 MMOL/L 22-30 ISTATGLU (test code=ISTATGLU) 91 MG/DL 65-110 ISTATBUN (test code=ISTATBUN) 15.0 MG/DL 7.0-20.0 ISTCREA (test code=ISTCREA) 1.1 MG/DL 0.7-1.5 ISTATHCT (test code=ISTATHCT) 43 %PCV 37.0-52.0 ISTATHGB (test code=ISTATHGB) 14.6 G/DL 12.0-18.0 Notified Nurse/MD of results outside of Reference Ranges ISTANGAP (test code=ISTANGAP) 12 MMOL/L Notified Nurse/MD of results outside of Reference Ranges BMP, BASIC METABOLIC [id number] 15:07:00 Test Item Value Reference Range Comments SODIUM (test code=NA) 142 MMOL/L 137-145 K+ (test code=KSERUM) 5.6 MMOL/L 3.5-5.1 PLEASE NOTE NEW REFERENCE RANGE(S) IN EFFECT EFFECTIVE 10/25/2009 - NEW ANALYZER (Act-[employer] Software 5600) CHLORIDE (test code=CL) 109 MMOL/L 98-107 CO2 (test code=CO2) 29 MMOL/L 22-30 BUN (test code=BUN) 12 MG/DL 9-20 CREA (test code=CREA) 0.9 MG/DL 0.8-1.5 GLUCOSE (test 97 MG/DL 70-99 Fasting glucose normal code=GLUCOSE) <100 MG/DL- [place] [employer] recommendation CALCIUM (test 9.4 MG/DL 8.4-10.2 code=CABLOOD) GFR (test code=GFR) 95 mL/min/1.73m2 A GFR of >90 mL/min/1.73m2 is considered normal. [id number] 15:07:00 Test Item Value Reference Range Comments MG (test code=MG) 2.4 mg/dL 1.6-2.3 PROTHROMBIN TIME WITH [id number] 14:02:00 Test Item Value Reference Range Comments PROTHROMBIN TIME (test 13.7 SECONDS 12.0-14.6 INR Usual Range=2 to 3 for code=PT) prevention of deep vein thrombosis (DVT) INR (test code=INR) 1.1 [id number] 13:45:00 Test Item Value Reference Range Comments WBC (test code=WBC) 8.4 K/UL 3.5-10.9 RBC (test code=RBC) 4.41 M/UL 4.3-5.7 HGB (test code=HGB) 13.4 G/DL 13.0-17.9 HCT (test code=HCT) 42.1 % 38-52 MCV (test code=MCV) 95.5 FL 80-98 MCH (test code=MCH) 30.4 PG 28-32 MCHC (test code=MCHC) 31.8 G/DL 32.5-36.5 RDW (test code=RDW) 13.3 % 11.5-14.5 PLT (test code=PLT) 208 K/UL 150-450 MPV (test code=MPV) 10.8 FL 7.4-10.4 MANDIFF (test code=MANDIFF) NO SCAN (test code=SCAN) NO NEUT% (test code=NEUT%) 46.4 % 40-75 LYMPH% (test code=LYMPH%) 37.9 % 24-44 MONO% (test code=MONO%) 8.9 % 0-13 EOS% (test code=EOS%) 5.7 % 0-4 BASO % (test code=BASO%) 0.7 % 0-2 IG (test code=IG) 0 % 0-1 IG% (test code=IG%) 0.4 % 0-1 IG%=Metamyelocytes, Myelocytes, and Promyelocytes. (Immature neutrophils not including "bands".) > 3% IG indicates risk of sepsis NRBC% (test code=NRBC%) 0 /100 WBC ABS NEUT (test code=NEUT) 3.9 K/UL 1.2-7.2 CHEST XR 2 [id number] 12:25:[address] [id number] IMAGING REPORTPatient Name: Yamil DECKER of Service: [id number]: 48 Sex: M Order #: [id number] Room: [facility]: 1970 X-Ray Number: [id number] Record Number: [id number] Hospital Number: [id number] Physician: NELIDA WAITE -Ordering Physician: NELIDA WAITE -CHEST.08/24/2018 12:06 PMHistory: Short of breath.Technique: PA and lateral chest projections.Findings: PA and lateral views of the chest demonstrate normal heart sizeand emphysematous but focally clear lungs. No infiltrates or abnormalitiesare depicted. The osseous structures appear intact.Impression:No acute-appearing cardiopulmonary abnormalities.Electronically Signed By: Conner Bruce M.D., 08/24/2018 12:23 PMLegally authenticated by ARLETTE Wolf 2018-08-24 12:23:24PET, CARDIAC PERFUSION MULTIPLE STUDIES, REST AND [id number] 15:30:00Reason for exam:-& gt;chest pain, multiple risk factors for CADFINAL REPORT PROCEDURE: Rest/Stress MYOCARDIAL PERFUSION PET with regadenoson\\XA9\\ CPT CODE: 38146 INDICATION: Chest pain, multiple risk factors for CAD HISTORY: Cardiac risk factors: Diabetes, hypertension, tobacco. Other cardiovascular history: Previous [place]. Recent cardiac symptoms: Chest pain. PROTOCOL: Limited low-dose CT imaging was performed for attenuation correction. 40.0 mCi of Rb-82 chloride was injected iv at rest, and gated PET ( positron emission tomography) images were obtained. Subsequently, 40.0 mCi of Rb -82 chloride was injected iv at expected peak pharmacologic effect, and gated PET images were obtained. [facility]: Pharmacologic stress was by 10-second iv infusion of 0.4 mg of regadenoson. Radiotracer was injected 30 seconds after start of stress. Heart rate was 51 beats/min at rest and 87 beats/min (50% of MPHR) at tracer injection. BP was 99/50 mmHg at rest and 87/54 mmHg at tracer injection. Stress was stopped for predetermined endpoint. The patient experienced chest pain/ discomfort; treatment was not required. Preliminary ECG evaluation [...] Normal extracardiac tracer distribution. 6. No previous [facility] study for comparison. NONINVASIVE RISK STRATIFICATION: The above findings are considered low risk (<1% annual mortality rate) based on the following criterion:- Normal or small myocardial perfusion defectat rest or with stress(JACC. 2012;59(9):857-81.) Signed: Bekah Cota MDReport Verified Date/Time:11/27/2017 15:30:18 Reading Location: [address] Reading Room HEMOGLOBIN [id number] 09:48:00 Test Item Value Reference Range Comments HEMOGLOBIN A1C (BEAKER) (test uarg=654) 4.9 % 4.3-6.1 BASIC METABOLIC [id number] 06:47:00 Test Item Value Reference Range Comments SODIUM (BEAKER) (test 136 meq/L 136-145 ymkj=795) POTASSIUM (BEAKER) (test 3.9 meq/L 3.5-5.1 rius=146) CHLORIDE (BEAKER) (test 108 meq/L 98-107 ujbp=469) CO2 (BEAKER) (test 23 meq/L 22-29 gajh=292) BLOOD UREA NITROGEN 12 mg/dL 7-21 (BEAKER) (test wonf=163) CREATININE (BEAKER) (test 0.85 mg/dL 0.57-1.25 olpk=322) GLUCOSE RANDOM (BEAKER) 92 mg/dL 70-105 (test utxu=970) CALCIUM (BEAKER) (test 8.5 mg/dL 8.4-10.2 etox=647) EGFR (BEAKER) (test mL/min/1.73 sq m INSUFFICIENT CLINICAL DATA rsly=5089) TO CALCULATE ESTIMATED GFR. TROPONIN [id number] 06:44:00 Test Item Value Reference Range Comments TROPONIN I (BEAKER) (test lxug=326) < ng/mL 0.00-0.03 Troponin I (TnI) levels [...] failure, acidosis, acute neurological disease, and persistent tachyarrhythmia.[id number] 06:43:00 Test Item Value Reference Range Comments MAGNESIUM (BEAKER) (test mqgn=587) 2.7 mg/dL 1.6-2.6 CBC W/PLT COUNT & AUTO [id number] 06:09:00 Test Item Value Reference Range Comments WHITE BLOOD CELL COUNT (BEAKER) (test ddki=965) 9.5 K/ L 3.5-10.5 RED BLOOD CELL COUNT (BEAKER) (test bfbr=671) 3.94 M/ L 4.63-6.08 HEMOGLOBIN (BEAKER) (test oont=477) 12.3 GM/DL 13.7-17.5 HEMATOCRIT (BEAKER) (test kkla=543) 37.8 % 40.1-51.0 MEAN CORPUSCULAR VOLUME (BEAKER) (test gvdn=259) 95.9 fL 79.0-92.2 MEAN CORPUSCULAR HEMOGLOBIN (BEAKER) (test 31.2 pg 25.7-32.2 rlec=514) MEAN CORPUSCULAR HEMOGLOBIN CONC (BEAKER) (test 32.5 GM/DL 32.3-36.5 cjfj=774) RED CELL DISTRIBUTION WIDTH (BEAKER) (test 13.8 % 11.6-14.4 lsmj=634) PLATELET COUNT (BEAKER) (test dkxt=257) 187 K/CU MM 150-450 MEAN PLATELET VOLUME (BEAKER) (test vdnn=741) 10.5 fL 9.4-12.4 NUCLEATED RED BLOOD CELLS (BEAKER) (test 0 /100 WBC 0-0 ufgi=678) NEUTROPHILS RELATIVE PERCENT (BEAKER) (test 56 % pfuw=972) LYMPHOCYTES RELATIVE PERCENT (BEAKER) (test 32 % ikxy=439) MONOCYTES RELATIVE PERCENT (BEAKER) (test 7 % ztco=704) EOSINOPHILS RELATIVE PERCENT (BEAKER) (test 5 % hfbf=629) BASOPHILS RELATIVE PERCENT (BEAKER) (test 1 % pfka=634) NEUTROPHILS ABSOLUTE COUNT (BEAKER) (test 5.28 K/ L 1.78-5.38 oept=864) LYMPHOCYTES ABSOLUTE COUNT (BEAKER) (test 3.03 K/ L 1.32-3.57 ymih=159) MONOCYTES ABSOLUTE COUNT (BEAKER) (test 0.69 K/ L 0.30-0.82 rhxg=868) EOSINOPHILS ABSOLUTE COUNT (BEAKER) (test 0.45 K/ L 0.04-0.54 ikfk=898) BASOPHILS ABSOLUTE COUNT (BEAKER) (test 0.06 K/ L 0.01-0.08 meio=842) IMMATURE GRANULOCYTES-RELATIVE PERCENT (BEAKER) 0 % 0-1 (test hsno=9080) TROPONIN [id number] 01:49:00 Test Item Value Reference Range Comments TROPONIN I (BEAKER) (test feyz=003) < ng/mL 0.00-0.03 Troponin I (TnI) levels [...] acute neurological disease, and persistent tachyarrhythmia.BASIC METABOLIC [id number] 01:49:00 Test Item Value Reference Range Comments SODIUM (BEAKER) (test 137 meq/L 136-145 shma=406) POTASSIUM (BEAKER) (test 3.7 meq/L 3.5-5.1 xorw=211) CHLORIDE (BEAKER) (test 109 meq/L 98-107 hnhh=131) CO2 (BEAKER) (test 23 meq/L 22-29 qpnt=769) BLOOD UREA NITROGEN 12 mg/dL 7-21 (BEAKER) (test ajhz=910) CREATININE (BEAKER) (test 0.91 mg/dL 0.57-1.25 xtyp=005) GLUCOSE RANDOM (BEAKER) 121 mg/dL 70-105 (test sybg=739) CALCIUM (BEAKER) (test 8.8 mg/dL 8.4-10.2 lgsf=380) EGFR (BEAKER) (test mL/min/1.73 sq m INSUFFICIENT CLINICAL DATA pqmb=1817) TO CALCULATE ESTIMATED GFR. [id number] 01:42:00 Test Item Value Reference Range Comments MAGNESIUM (BEAKER) (test rbfp=844) 2.2 mg/dL 1.6-2.6 LIPID [id number] 01:42:00 Test Item Value Reference Range Comments TRIGLYCERIDES (BEAKER) (test pcuz=403) 130 mg/dL CHOLESTEROL (BEAKER) (test qfjf=548) 164 mg/dL HDL CHOLESTEROL (BEAKER) (test xemp=628) 31 mg/dL LDL CHOLESTEROL CALCULATED (BEAKER) (test 107 mg/dL jslr=882) Triglyceride Reference Range: Low Risk <150 Borderline 150- 199 High Risk 200-499 Very High Risk >=500Cholesterol Reference Range: Low Risk <200 Borderline 200-239 High Risk > 240HDL Cholesterol Reference Range: Low Risk >=60 High Risk <40LDL Cholesterol Reference Range: Optimal <100 Near Optimal 100-129 Borderline 130-159 High 160-189 Very High >=190HEPATIC FUNCTION [id number] 01:42:00 Test Item Value Reference Range Comments TOTAL PROTEIN (BEAKER) (test iqqx=584) 6.1 gm/dL 6.0-8.3 ALBUMIN (BEAKER) (test fuoc=0248) 3.8 g/dL 3.5-5.0 BILIRUBIN TOTAL (BEAKER) (test kohi=020) 0.2 mg/dL 0.2-1.2 BILIRUBIN DIRECT (BEAKER) (test akdn=828) 0.1 mg/dL 0.1-0.5 ALKALINE PHOSPHATASE (BEAKER) (test kqko=233) 108 U/L 40-150 AST (SGOT) (BEAKER) (test mwkp=570) 9 U/L 5-34 ALT (SGPT) (BEAKER) (test ckun=549) 8 U/L 6-55 CBC W/PLT COUNT & AUTO [id number] 00:59:00 Test Item Value Reference Range Comments WHITE BLOOD CELL COUNT (BEAKER) (test ngew=405) 12.9 K/ L 3.5-10.5 RED BLOOD CELL COUNT (BEAKER) (test bpte=347) 4.07 M/ L 4.63-6.08 HEMOGLOBIN (BEAKER) (test pfys=276) 12.8 GM/DL 13.7-17.5 HEMATOCRIT (BEAKER) (test bypa=503) 39.0 % 40.1-51.0 MEAN CORPUSCULAR VOLUME (BEAKER) (test qfve=968) 95.8 fL 79.0-92.2 MEAN CORPUSCULAR HEMOGLOBIN (BEAKER) (test 31.4 pg 25.7-32.2 kruj=882) MEAN CORPUSCULAR HEMOGLOBIN CONC (BEAKER) (test 32.8 GM/DL 32.3-36.5 wlae=330) RED CELL DISTRIBUTION WIDTH (BEAKER) (test 13.9 % 11.6-14.4 sfgu=444) PLATELET COUNT (BEAKER) (test dbkw=846) 210 K/CU MM 150-450 MEAN PLATELET VOLUME (BEAKER) (test sfan=656) 10.4 fL 9.4-12.4 NUCLEATED RED BLOOD CELLS (BEAKER) (test 0 /100 WBC 0-0 owle=487) NEUTROPHILS RELATIVE PERCENT (BEAKER) (test 60 % ypwh=760) LYMPHOCYTES RELATIVE PERCENT (BEAKER) (test 29 % uhwq=601) MONOCYTES RELATIVE PERCENT (BEAKER) (test 6 % bzmf=536) EOSINOPHILS RELATIVE PERCENT (BEAKER) (test 4 % rahv=675) BASOPHILS RELATIVE PERCENT (BEAKER) (test 0 % ohdx=125) NEUTROPHILS ABSOLUTE COUNT (BEAKER) (test 7.69 K/ L 1.78-5.38 txcq=052) LYMPHOCYTES ABSOLUTE COUNT (BEAKER) (test 3.75 K/ L 1.32-3.57 nuuq=449) MONOCYTES ABSOLUTE COUNT (BEAKER) (test 0.82 K/ L 0.30-0.82 mngw=350) EOSINOPHILS ABSOLUTE COUNT (BEAKER) (test 0.57 K/ L 0.04-0.54 zcrj=404) BASOPHILS ABSOLUTE COUNT (BEAKER) (test 0.05 K/ L 0.01-0.08 ibrj=359) IMMATURE GRANULOCYTES-RELATIVE PERCENT (BEAKER) 0 % 0-1 (test nxsl=9285)
--- NOTE | 2019-02-14 19:38 | RAD REPORT ---
EXAM DESCRIPTION: RAD - Knee Left 3 View - 02/14/2019 7:16 pm CLINICAL HISTORY: PAIN COMPARISON: No comparisons FINDINGS: No fracture or dislocation seen.
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
[2019-02-14] MEDS ORDERED: KETOROLAC 30 MG/ML INJ ONE (20:38)
[2019-02-14] MEDS ORDERED: HYDROCODONE/APAP 5/325 MG TAB ONE (20:38)
[2019-02-14 21:44] VITALS: BP 114/79; TEMP 98.1; O2SAT 100
== END 2019-02-14 20:43 | disposition home or self-care (01) ==
LOC: ER 17:48
DX: S83.412A Sprain of medial collateral ligament of left knee, initial encounter (principal); W19.XXXA Unspecified fall, initial encounter; Y93.01 Activity, walking, marching and hiking; Y92.9 Unspecified place or not applicable; F17.210 Nicotine dependence, cigarettes, uncomplicated; I10 Essential (primary) hypertension; Z91.040 Latex allergy status; Z91.048 Other nonmedicinal substance allergy status
CPT/HCPCS: 96372; 99283

== ENCOUNTER 2019-03-23 21:39 | Emergency (ER) | payer OTHER ==
--- OUTSIDE RECORDS SUMMARY | 2019-03-23 21:42 | XMS REPORT ---
:1970 [facility] Address [address] [place] [address] 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 [id number] 15:07:00 Test Item Value Reference Range Comments MG (test code=MG) 2.4 mg/dL 1.6-2.3 PROTHROMBIN TIME WITH [id number] 14:02:00 Test Item Value Reference Range Comments PROTHROMBIN TIME (test 13.7 SECONDS 12.0-14.6 INR Usual Range=2 to 3 for code=PT) prevention of deep vein thrombosis (DVT) INR (test code=INR) 1.1 [id number] 13:45:00 Test Item Value Reference Range Comments [...] code=NEUT) 3.9 K/UL 1.2-7.2 CHEST XR 2 [id number] 12:25:[address] [id number] IMAGING REPORTPatient Name: Yamil DECKER of Service: [id number]: 48 Sex: M Order #: [id number] Room: [facility]: 1970 X-Ray Number: [id number] Record Number: [id number] Hospital Number: [id number] Physician: NELIDA WAITE -Ordering Physician: NELIDA WAITE [...] 12:23:24PET, CARDIAC PERFUSION MULTIPLE STUDIES, REST AND [id number] 15:30:00Reason for exam:-& gt;chest pain, multiple risk factors for CADFINAL REPORT PROCEDURE: Rest/Stress MYOCARDIAL PERFUSION PET with regadenoson\\XA9\\ CPT CODE: 13617 INDICATION: Chest pain, multiple risk factors for CAD HISTORY: Cardiac risk factors: Diabetes, hypertension, tobacco. Other cardiovascular history: Previous GA. Recent cardiac symptoms: Chest pain. PROTOCOL: Limited low-dose CT imaging was performed for attenuation correction. 40.0 mCi of Rb-82 chloride was injected iv at rest, and gated PET ( positron emission tomography) images were obtained. Subsequently, 40.0 mCi of Rb -82 chloride was injected iv at expected peak pharmacologic effect, and gated PET images were obtained. [facility]: Pharmacologic stress was by 10-second iv [...] Normal extracardiac tracer distribution. 6. No previous [facility] study for comparison. NONINVASIVE RISK STRATIFICATION: The above findings are considered low risk (<1% annual mortality rate) based on the following criterion:- Normal or small myocardial perfusion defectat rest or with stress(JACC. 2012;59(9):857-81.) Signed: Bekah Cota MDReport Verified Date/Time:11/27/2017 15:30:18 Reading Location: [address] Reading Room HEMOGLOBIN [id number] 09:48:00 Test Item Value Reference Range Comments HEMOGLOBIN A1C (BEAKER) (test pxtn=484) 4.9 % 4.3-6.1 BASIC METABOLIC [id number] 06:47:00 Test Item Value Reference Range Comments SODIUM (BEAKER) (test 136 meq/L 136-145 mmof=325) POTASSIUM (BEAKER) (test 3.9 meq/L 3.5-5.1 ghak=484) CHLORIDE (BEAKER) (test 108 meq/L 98-107 wyiw=881) CO2 (BEAKER) (test 23 meq/L 22-29 rufr=904) BLOOD UREA NITROGEN 12 mg/dL 7-21 (BEAKER) (test gpal=274) CREATININE (BEAKER) (test 0.85 mg/dL 0.57-1.25 urop=068) GLUCOSE RANDOM (BEAKER) 92 mg/dL 70-105 (test ohhk=235) CALCIUM (BEAKER) (test 8.5 mg/dL 8.4-10.2 kpej=244) EGFR (BEAKER) (test mL/min/1.73 sq m INSUFFICIENT CLINICAL DATA nxlr=9201) TO CALCULATE ESTIMATED GFR. TROPONIN [id number] 06:44:00 Test Item Value Reference Range Comments TROPONIN I (BEAKER) (test owfr=681) < ng/mL 0.00-0.03 Troponin I (TnI) levels [...] failure, acidosis, acute neurological disease, and persistent tachyarrhythmia.[id number] 06:43:00 Test Item Value Reference Range Comments MAGNESIUM (BEAKER) (test ablt=709) 2.7 mg/dL 1.6-2.6 CBC W/PLT COUNT & AUTO [id number] 06:09:00 Test Item Value Reference Range Comments WHITE BLOOD CELL COUNT (BEAKER) (test afhj=904) 9.5 K/ L 3.5-10.5 RED BLOOD CELL COUNT (BEAKER) (test ypxk=555) 3.94 M/ L 4.63-6.08 HEMOGLOBIN (BEAKER) (test jkjn=335) 12.3 GM/DL 13.7-17.5 HEMATOCRIT (BEAKER) (test pquw=519) 37.8 % 40.1-51.0 MEAN CORPUSCULAR VOLUME (BEAKER) (test fiyo=057) 95.9 fL 79.0-92.2 MEAN CORPUSCULAR HEMOGLOBIN (BEAKER) (test 31.2 pg 25.7-32.2 ngxh=235) MEAN CORPUSCULAR HEMOGLOBIN CONC (BEAKER) (test 32.5 GM/DL 32.3-36.5 mlok=885) RED CELL DISTRIBUTION WIDTH (BEAKER) (test 13.8 % 11.6-14.4 fpcm=482) PLATELET COUNT (BEAKER) (test vkga=815) 187 K/CU MM 150-450 MEAN PLATELET VOLUME (BEAKER) (test wcco=219) 10.5 fL 9.4-12.4 NUCLEATED RED BLOOD CELLS (BEAKER) (test 0 /100 WBC 0-0 kauc=116) NEUTROPHILS RELATIVE PERCENT (BEAKER) (test 56 % uali=591) LYMPHOCYTES RELATIVE PERCENT (BEAKER) (test 32 % adcw=292) MONOCYTES RELATIVE PERCENT (BEAKER) (test 7 % xxbj=999) EOSINOPHILS RELATIVE PERCENT (BEAKER) (test 5 % gjeb=374) BASOPHILS RELATIVE PERCENT (BEAKER) (test 1 % ndpt=314) NEUTROPHILS ABSOLUTE COUNT (BEAKER) (test 5.28 K/ L 1.78-5.38 uoku=064) LYMPHOCYTES ABSOLUTE COUNT (BEAKER) (test 3.03 K/ L 1.32-3.57 zvye=774) MONOCYTES ABSOLUTE COUNT (BEAKER) (test 0.69 K/ L 0.30-0.82 sglu=518) EOSINOPHILS ABSOLUTE COUNT (BEAKER) (test 0.45 K/ L 0.04-0.54 eokd=766) BASOPHILS ABSOLUTE COUNT (BEAKER) (test 0.06 K/ L 0.01-0.08 udti=836) IMMATURE GRANULOCYTES-RELATIVE PERCENT (BEAKER) 0 % 0-1 (test qewb=0201) TROPONIN [id number] 01:49:00 Test Item Value Reference Range Comments TROPONIN I (BEAKER) (test dykz=563) < ng/mL 0.00-0.03 Troponin I (TnI) levels [...] acute neurological disease, and persistent tachyarrhythmia.BASIC METABOLIC [id number] 01:49:00 Test Item Value Reference Range Comments SODIUM (BEAKER) (test 137 meq/L 136-145 oqko=235) POTASSIUM (BEAKER) (test 3.7 meq/L 3.5-5.1 wfun=381) CHLORIDE (BEAKER) (test 109 meq/L 98-107 kyyq=657) CO2 (BEAKER) (test 23 meq/L 22-29 wgex=493) BLOOD UREA NITROGEN 12 mg/dL 7-21 (BEAKER) (test gpvq=024) CREATININE (BEAKER) (test 0.91 mg/dL 0.57-1.25 mzdx=819) GLUCOSE RANDOM (BEAKER) 121 mg/dL 70-105 (test pbev=177) CALCIUM (BEAKER) (test 8.8 mg/dL 8.4-10.2 cyya=479) EGFR (BEAKER) (test mL/min/1.73 sq m INSUFFICIENT CLINICAL DATA fplk=3068) TO CALCULATE ESTIMATED GFR. [id number] 01:42:00 Test Item Value Reference Range Comments MAGNESIUM (BEAKER) (test aqsf=287) 2.2 mg/dL 1.6-2.6 LIPID [id number] 01:42:00 Test Item Value Reference Range Comments TRIGLYCERIDES (BEAKER) (test wzon=382) 130 mg/dL CHOLESTEROL (BEAKER) (test obqm=750) 164 mg/dL HDL CHOLESTEROL (BEAKER) (test ukbp=910) 31 mg/dL LDL CHOLESTEROL CALCULATED (BEAKER) (test 107 mg/dL vyba=718) Triglyceride Reference Range: Low Risk <150 Borderline 150- 199 High Risk 200-499 Very High Risk >=500Cholesterol Reference Range: Low Risk <200 Borderline 200-239 High Risk > 240HDL Cholesterol Reference Range: Low Risk >=60 High Risk <40LDL Cholesterol Reference Range: Optimal <100 Near Optimal 100-129 Borderline 130-159 High 160-189 Very High >=190HEPATIC FUNCTION [id number] 01:42:00 Test Item Value Reference Range Comments TOTAL PROTEIN (BEAKER) (test kryy=156) 6.1 gm/dL 6.0-8.3 ALBUMIN (BEAKER) (test dolt=5552) 3.8 g/dL 3.5-5.0 BILIRUBIN TOTAL (BEAKER) (test aoxi=584) 0.2 mg/dL 0.2-1.2 BILIRUBIN DIRECT (BEAKER) (test tvdp=636) 0.1 mg/dL 0.1-0.5 ALKALINE PHOSPHATASE (BEAKER) (test rocf=256) 108 U/L 40-150 AST (SGOT) (BEAKER) (test kgyl=625) 9 U/L 5-34 ALT (SGPT) (BEAKER) (test vjdp=203) 8 U/L 6-55 CBC W/PLT COUNT & AUTO [id number] 00:59:00 Test Item Value Reference Range Comments WHITE BLOOD CELL COUNT (BEAKER) (test wleq=671) 12.9 K/ L 3.5-10.5 RED BLOOD CELL COUNT (BEAKER) (test pzfm=954) 4.07 M/ L 4.63-6.08 HEMOGLOBIN (BEAKER) (test dujd=577) 12.8 GM/DL 13.7-17.5 HEMATOCRIT (BEAKER) (test wznp=341) 39.0 % 40.1-51.0 MEAN CORPUSCULAR VOLUME (BEAKER) (test byix=550) 95.8 fL 79.0-92.2 MEAN CORPUSCULAR HEMOGLOBIN (BEAKER) (test 31.4 pg 25.7-32.2 ppud=469) MEAN CORPUSCULAR HEMOGLOBIN CONC (BEAKER) (test 32.8 GM/DL 32.3-36.5 ofiy=447) RED CELL DISTRIBUTION WIDTH (BEAKER) (test 13.9 % 11.6-14.4 flad=434) PLATELET COUNT (BEAKER) (test gtuj=520) 210 K/CU MM 150-450 MEAN PLATELET VOLUME (BEAKER) (test aliw=703) 10.4 fL 9.4-12.4 NUCLEATED RED BLOOD CELLS (BEAKER) (test 0 /100 WBC 0-0 zmhs=509) NEUTROPHILS RELATIVE PERCENT (BEAKER) (test 60 % awny=943) LYMPHOCYTES RELATIVE PERCENT (BEAKER) (test 29 % vxki=333) MONOCYTES RELATIVE PERCENT (BEAKER) (test 6 % wyvc=603) EOSINOPHILS RELATIVE PERCENT (BEAKER) (test 4 % qefw=062) BASOPHILS RELATIVE PERCENT (BEAKER) (test 0 % jazz=281) NEUTROPHILS ABSOLUTE COUNT (BEAKER) (test 7.69 K/ L 1.78-5.38 brnu=412) LYMPHOCYTES ABSOLUTE COUNT (BEAKER) (test 3.75 K/ L 1.32-3.57 wgry=856) MONOCYTES ABSOLUTE COUNT (BEAKER) (test 0.82 K/ L 0.30-0.82 zlqe=999) EOSINOPHILS ABSOLUTE COUNT (BEAKER) (test 0.57 K/ L 0.04-0.54 kmob=159) BASOPHILS ABSOLUTE COUNT (BEAKER) (test 0.05 K/ L 0.01-0.08 dgih=083) IMMATURE GRANULOCYTES-RELATIVE PERCENT (BEAKER) 0 % 0-1 (test olbb=6092)
[2019-03-23] MEDS ORDERED: HYDROCODONE/APAP 7.5/325 MG TAB ONE (22:30)
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
[2019-03-24 00:33] VITALS: TEMP 98.8
[2019-03-24 00:34] VITALS: BP 114/66; O2SAT 98
--- NOTE | 2019-03-24 08:39 | RAD REPORT ---
EXAM DESCRIPTION: RAD - Ankle Right 3 View - 03/23/2019 10:51 pm CLINICAL HISTORY: Fall, ankle pain COMPARISON: None. FINDINGS: No gross fracture deformity is seen. Lateral view shows punctate 1 millimeter size bone de nsities adjacent to the cuboid. Small bone avulsions are suspected. Correlation can be made with any localizing symptoms near the lateral aspect of the calcaneus cuboid articulation. No other evidence for an acute bone process. No joint effusion seen. No joint space narrowing. No sof t tissue abnormality. IMPRESSION: No gross fracture deformity is seen. However, there is suspected small punctate bone avu lsion from the proximal -lateral margin of the cuboid bone at the calcaneus cuboid articulation.
--- NOTE | 2019-03-24 08:41 | RAD REPORT ---
EXAM DESCRIPTION: RAD - Knee Right 3 View - 03/23/2019 10:54 pm CLINICAL HISTORY: Slip and fall, right knee pain COMPARISON: None. FINDINGS: No fracture, dislocation or periosteal reaction.No joint effusion seen. No joint space eugenie rowing. No foreign body or other soft tissue abnormality. IMPRESSION: Negative right knee. Clinical concerns for internal derangement or occult bony injury could be further assessed with MR im aging.
== END 2019-03-23 23:54 | disposition home or self-care (01) ==
LOC: ER 21:39
DX: S83.91XA Sprain of unspecified site of right knee, initial encounter (principal); S93.401A Sprain of unspecified ligament of right ankle, initial encounter; W19.XXXA Unspecified fall, initial encounter; Y93.9 Activity, unspecified; Y92.9 Unspecified place or not applicable; Z91.040 Latex allergy status; Z91.048 Other nonmedicinal substance allergy status; I10 Essential (primary) hypertension; F31.9 Bipolar disorder, unspecified; F17.210 Nicotine dependence, cigarettes, uncomplicated
CPT/HCPCS: 99284

== ENCOUNTER 2019-04-15 20:51 | Emergency (ER) | payer OTHER ==
--- OUTSIDE RECORDS SUMMARY | 2019-04-15 20:54 | XMS REPORT ---
:1970 [facility] Address [address] [place] [address] [address] [place] [address] Care Team Providers Name Role Phone TREVOR [...] outside of Reference Ranges BMP, BASIC METABOLIC [id number] 15:07:00 Test Item Value Reference Range Comments SODIUM (test code=NA) 142 MMOL/L 137-145 K+ (test code=KSERUM) 5.6 MMOL/L 3.5-5.1 PLEASE NOTE NEW REFERENCE RANGE(S) IN EFFECT EFFECTIVE 10/25/2009 - NEW ANALYZER ([employer] 5600) CHLORIDE (test code=CL) 109 MMOL/L 98-107 CO2 (test code=CO2) 29 MMOL/L 22-30 BUN (test code=BUN) 12 MG/DL 9-20 CREA (test code=CREA) 0.9 MG/DL 0.8-1.5 GLUCOSE (test 97 MG/DL 70-99 Fasting glucose normal code=GLUCOSE) <100 MG/DL- [employer] recommendation CALCIUM (test 9.4 MG/DL 8.4-10.2 code=CABLOOD) GFR (test code=GFR) 95 mL/min/1.73m2 A GFR of >90 mL/min/1.73m2 is considered normal. [id number] 15:07:00 Test Item Value Reference Range Comments MG (test code=MG) 2.4 mg/dL 1.6-2.3 PROTHROMBIN TIME WITH [id number] 14:02:00 Test Item Value Reference Range Comments PROTHROMBIN TIME (test 13.7 SECONDS 12.0-14.6 INR Usual Range=2 to 3 for code=PT) prevention of deep vein thrombosis (DVT) INR (test code=INR) 1.1 [id number] 13:45:00 Test Item Value Reference Range Comments [...] code=NEUT) 3.9 K/UL 1.2-7.2 CHEST XR 2 [id number] 12:25:[address] [id number] IMAGING REPORTPatient Name: Yamil DECKER of Service: [id number]: 48 Sex: M Order #: [id number] Room: [facility]: 1970 X-Ray Number: [id number] Record Number: [id number] Hospital Number: [id number] Physician: NELIDA WAITE -Ordering Physician: NELIDA WAITECHEST.08/24/2018 12:06 PMHistory: Short of breath.Technique: PA and lateral chest projections.Findings: PA and lateral views of the chest demonstrate normal heart sizeand emphysematous but focally clear lungs. No infiltrates or abnormalitiesare depicted. The osseous structures appear intact.Impression:No acute-appearing cardiopulmonary abnormalities.Electronically Signed By: Conner Bruce M.D., 08/24/2018 12:23 PMLegally authenticated by ARLETTE Wolf 2018-08-24 12:23:24PET, CARDIAC PERFUSION MULTIPLE STUDIES, REST AND [id number] 15:30:00Reason for exam:-& gt;chest pain, multiple risk factors for CADFINAL REPORT PROCEDURE: Rest/Stress MYOCARDIAL PERFUSION PET with regadenoson\\XA9\\ CPT CODE: 41699 INDICATION: Chest pain, multiple risk factors for CAD HISTORY: Cardiac risk factors: Diabetes, hypertension, tobacco. Other cardiovascular history: Previous VT. Recent cardiac symptoms: Chest pain. PROTOCOL: Limited low-dose CT imaging was performed for attenuation correction. 40.0 mCi of Rb-82 chloride was injected iv at rest, and gated PET ( positron emission tomography) images were obtained. Subsequently, 40.0 mCi of Rb -82 chloride was injected iv at expected peak pharmacologic effect, and gated PET images were obtained. [facility]: Pharmacologic stress was by 10-second [...] Normal extracardiac tracer distribution. 6. No previous [facility] study for comparison. NONINVASIVE RISK STRATIFICATION: The above findings are considered low risk (<1% annual mortality rate) based on the following criterion:- Normal or small myocardial perfusion defectat rest or with stress(JACC. 2012;59(9):857-81.) Signed: Bekah Cota Verified Date/Time:11/27/2017 15:30:18 Reading Location: [address] Reading Room HEMOGLOBIN [id number] 09:48:00 Test Item Value Reference Range Comments HEMOGLOBIN A1C (BEAKER) (test njtr=513) 4.9 % 4.3-6.1 BASIC METABOLIC [id number] 06:47:00 Test Item Value Reference Range Comments SODIUM (BEAKER) (test 136 meq/L 136-145 vjro=269) POTASSIUM (BEAKER) (test 3.9 meq/L 3.5-5.1 azkz=997) CHLORIDE (BEAKER) (test 108 meq/L 98-107 pflq=003) CO2 (BEAKER) (test 23 meq/L 22-29 fkzd=741) BLOOD UREA NITROGEN 12 mg/dL 7-21 (BEAKER) (test nwyi=396) CREATININE (BEAKER) (test 0.85 mg/dL 0.57-1.25 vqqg=310) GLUCOSE RANDOM (BEAKER) 92 mg/dL 70-105 (test szyz=551) CALCIUM (BEAKER) (test 8.5 mg/dL 8.4-10.2 ltcb=477) EGFR (BEAKER) (test mL/min/1.73 sq m INSUFFICIENT CLINICAL DATA agwv=9462) TO CALCULATE ESTIMATED GFR. TROPONIN [id number] 06:44:00 Test Item Value Reference Range Comments TROPONIN I (BEAKER) (test uvgm=579) < ng/mL 0.00-0.03 Troponin I (TnI) levels [...] failure, acidosis, acute neurological disease, and persistent tachyarrhythmia.[id number] 06:43:00 Test Item Value Reference Range Comments MAGNESIUM (BEAKER) (test gssk=036) 2.7 mg/dL 1.6-2.6 CBC W/PLT COUNT & AUTO [id number] 06:09:00 Test Item Value Reference Range Comments WHITE BLOOD CELL COUNT (BEAKER) (test brop=765) 9.5 K/ L 3.5-10.5 RED BLOOD CELL COUNT (BEAKER) (test teef=585) 3.94 M/ L 4.63-6.08 HEMOGLOBIN (BEAKER) (test xrpb=857) 12.3 GM/DL 13.7-17.5 HEMATOCRIT (BEAKER) (test kpmc=266) 37.8 % 40.1-51.0 MEAN CORPUSCULAR VOLUME (BEAKER) (test asnr=725) 95.9 fL 79.0-92.2 MEAN CORPUSCULAR HEMOGLOBIN (BEAKER) (test 31.2 pg 25.7-32.2 zzyd=424) MEAN CORPUSCULAR HEMOGLOBIN CONC (BEAKER) (test 32.5 GM/DL 32.3-36.5 bilu=919) RED CELL DISTRIBUTION WIDTH (BEAKER) (test 13.8 % 11.6-14.4 wkgj=812) PLATELET COUNT (BEAKER) (test mbkt=759) 187 K/CU MM 150-450 MEAN PLATELET VOLUME (BEAKER) (test mwik=352) 10.5 fL 9.4-12.4 NUCLEATED RED BLOOD CELLS (BEAKER) (test 0 /100 WBC 0-0 urkz=882) NEUTROPHILS RELATIVE PERCENT (BEAKER) (test 56 % bupt=755) LYMPHOCYTES RELATIVE PERCENT (BEAKER) (test 32 % ucfg=850) MONOCYTES RELATIVE PERCENT (BEAKER) (test 7 % arek=231) EOSINOPHILS RELATIVE PERCENT (BEAKER) (test 5 % cnxp=061) BASOPHILS RELATIVE PERCENT (BEAKER) (test 1 % dqkh=922) NEUTROPHILS ABSOLUTE COUNT (BEAKER) (test 5.28 K/ L 1.78-5.38 snww=547) LYMPHOCYTES ABSOLUTE COUNT (BEAKER) (test 3.03 K/ L 1.32-3.57 nnmb=597) MONOCYTES ABSOLUTE COUNT (BEAKER) (test 0.69 K/ L 0.30-0.82 ritk=121) EOSINOPHILS ABSOLUTE COUNT (BEAKER) (test 0.45 K/ L 0.04-0.54 jgmj=715) BASOPHILS ABSOLUTE COUNT (BEAKER) (test 0.06 K/ L 0.01-0.08 hywg=614) IMMATURE GRANULOCYTES-RELATIVE PERCENT (BEAKER) 0 % 0-1 (test jwwp=5460) TROPONIN [id number] 01:49:00 Test Item Value Reference Range Comments TROPONIN I (BEAKER) (test xjkg=801) < ng/mL 0.00-0.03 Troponin I (TnI) levels [...] acute neurological disease, and persistent tachyarrhythmia.BASIC METABOLIC [id number] 01:49:00 Test Item Value Reference Range Comments SODIUM (BEAKER) (test 137 meq/L 136-145 bwow=499) POTASSIUM (BEAKER) (test 3.7 meq/L 3.5-5.1 ddvc=610) CHLORIDE (BEAKER) (test 109 meq/L 98-107 wvsk=281) CO2 (BEAKER) (test 23 meq/L 22-29 lbml=903) BLOOD UREA NITROGEN 12 mg/dL 7-21 (BEAKER) (test lhmp=364) CREATININE (BEAKER) (test 0.91 mg/dL 0.57-1.25 evyq=501) GLUCOSE RANDOM (BEAKER) 121 mg/dL 70-105 (test cpwy=337) CALCIUM (BEAKER) (test 8.8 mg/dL 8.4-10.2 njuk=591) EGFR (BEAKER) (test mL/min/1.73 sq m INSUFFICIENT CLINICAL DATA izus=2897) TO CALCULATE ESTIMATED GFR. [id number] 01:42:00 Test Item Value Reference Range Comments MAGNESIUM (BEAKER) (test ljuh=061) 2.2 mg/dL 1.6-2.6 LIPID [id number] 01:42:00 Test Item Value Reference Range Comments TRIGLYCERIDES (BEAKER) (test bfqa=885) 130 mg/dL CHOLESTEROL (BEAKER) (test bwan=357) 164 mg/dL HDL CHOLESTEROL (BEAKER) (test ycsw=102) 31 mg/dL LDL CHOLESTEROL CALCULATED (BEAKER) (test 107 mg/dL selj=511) Triglyceride Reference Range: Low Risk <150 Borderline 150- 199 High Risk 200-499 Very High Risk >=500Cholesterol Reference Range: Low Risk <200 Borderline 200-239 High Risk > 240HDL Cholesterol Reference Range: Low Risk >=60 High Risk <40LDL Cholesterol Reference Range: Optimal <100 Near Optimal 100-129 Borderline 130-159 High 160-189 Very High >=190HEPATIC FUNCTION [id number] 01:42:00 Test Item Value Reference Range Comments TOTAL PROTEIN (BEAKER) (test nuaw=670) 6.1 gm/dL 6.0-8.3 ALBUMIN (BEAKER) (test zysq=2896) 3.8 g/dL 3.5-5.0 BILIRUBIN TOTAL (BEAKER) (test gwxy=522) 0.2 mg/dL 0.2-1.2 BILIRUBIN DIRECT (BEAKER) (test tujh=505) 0.1 mg/dL 0.1-0.5 ALKALINE PHOSPHATASE (BEAKER) (test rvcx=173) 108 U/L 40-150 AST (SGOT) (BEAKER) (test chgd=519) 9 U/L 5-34 ALT (SGPT) (BEAKER) (test lfvk=963) 8 U/L 6-55 CBC W/PLT COUNT & AUTO [id number] 00:59:00 Test Item Value Reference Range Comments WHITE BLOOD CELL COUNT (BEAKER) (test xjmu=228) 12.9 K/ L 3.5-10.5 RED BLOOD CELL COUNT (BEAKER) (test kwce=281) 4.07 M/ L 4.63-6.08 HEMOGLOBIN (BEAKER) (test qbzx=557) 12.8 GM/DL 13.7-17.5 HEMATOCRIT (BEAKER) (test kfwn=329) 39.0 % 40.1-51.0 MEAN CORPUSCULAR VOLUME (BEAKER) (test ryvf=044) 95.8 fL 79.0-92.2 MEAN CORPUSCULAR HEMOGLOBIN (BEAKER) (test 31.4 pg 25.7-32.2 adzn=468) MEAN CORPUSCULAR HEMOGLOBIN CONC (BEAKER) (test 32.8 GM/DL 32.3-36.5 ujrq=412) RED CELL DISTRIBUTION WIDTH (BEAKER) (test 13.9 % 11.6-14.4 dcbw=965) PLATELET COUNT (BEAKER) (test ezdc=749) 210 K/CU MM 150-450 MEAN PLATELET VOLUME (BEAKER) (test tita=961) 10.4 fL 9.4-12.4 NUCLEATED RED BLOOD CELLS (BEAKER) (test 0 /100 WBC 0-0 gukr=134) NEUTROPHILS RELATIVE PERCENT (BEAKER) (test 60 % mppq=666) LYMPHOCYTES RELATIVE PERCENT (BEAKER) (test 29 % bbua=906) MONOCYTES RELATIVE PERCENT (BEAKER) (test 6 % vfsg=913) EOSINOPHILS RELATIVE PERCENT (BEAKER) (test 4 % drxx=265) BASOPHILS RELATIVE PERCENT (BEAKER) (test 0 % jdsn=703) NEUTROPHILS ABSOLUTE COUNT (BEAKER) (test 7.69 K/ L 1.78-5.38 rxfw=536) LYMPHOCYTES ABSOLUTE COUNT (BEAKER) (test 3.75 K/ L 1.32-3.57 vbqf=704) MONOCYTES ABSOLUTE COUNT (BEAKER) (test 0.82 K/ L 0.30-0.82 oevx=861) EOSINOPHILS ABSOLUTE COUNT (BEAKER) (test 0.57 K/ L 0.04-0.54 daxx=011) BASOPHILS ABSOLUTE COUNT (BEAKER) (test 0.05 K/ L 0.01-0.08 ybqi=947) IMMATURE GRANULOCYTES-RELATIVE PERCENT (BEAKER) 0 % 0-1 (test vzbd=7078)
[2019-04-15] MEDS ORDERED: IBUPROFEN 400 MG TAB ONE (21:24)
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
[2019-04-15] MEDS ORDERED: HYDROCODONE/APAP 7.5/325 MG TAB ONE (22:12)
[2019-04-15 22:40] VITALS: BP 127/82; TEMP 98.4; O2SAT 99
--- NOTE | 2019-04-16 11:24 | RAD REPORT ---
EXAM DESCRIPTION: RAD - Tib Fib Right - 04/15/2019 9:55 pm CLINICAL HISTORY: PAIN Trauma, pain COMPARISON: None FINDINGS: Right knee and right tibia/ fibula- multiple projections are submitted No fracture or dislocation is seen. No joint effusion evident.
--- NOTE | 2019-04-18 13:02 | RAD REPORT ---
EXAM DESCRIPTION: RAD - Knee Right 3 View - 04/15/2019 9:55 pm CLINICAL HISTORY: PAIN Trauma, pain COMPARISON: None FINDINGS: Right knee and right tibia/ fibula- multiple projections are submitted No fracture or dislocation is seen. No joint effusion evident.
== END 2019-04-15 22:36 | disposition home or self-care (01) ==
LOC: ER 20:51
DX: S80.01XA Contusion of right knee, initial encounter (principal); Y04.2XXA Assault by strike against or bumped into by another person, initial encounter; Y93.89 Activity, other specified; Y92.017 Garden or yard in single-family (private) house as the place of occurrence of the external cause; Z91.040 Latex allergy status; Z91.018 Allergy to other foods
CPT/HCPCS: 99283

== ENCOUNTER 2019-04-22 18:13 | Emergency (ER) | payer OTHER ==
--- OUTSIDE RECORDS SUMMARY | 2019-04-22 18:15 | XMS REPORT | Continuity of Care Document ---
:1970 Author Organization [facility] Address [address] [place] [address] Allergies, Adverse Reactions, Alerts Allergen Type Severity Reaction Last Updated Verified Status Adhesive agent Allergy Severe HIVES April 19, 2019 No Active Latex ([id number]) Allergy Severe HIVES April 19, 2019 No Active Medications No known medications. Problems Active Problems Medical Problem Onset Date Status Sprain of ankle Active Inactive/Resolved Problems Medical Problem Onset Date Status Contusion of knee Resolved Internal derangement of right knee Resolved Right ankle sprain Resolved Sprain of knee Resolved Procedures Procedure Date Performed Status XR knee right, 2 views April 19, 2019 completed X-ray of right ankle, three or more views April 19, 2019 completed Relevant Diagnostic Tests and/or Laboratory Data No known relevant diagnostic tests and/or laboratory data. Health Concerns No known health concerns documented Advance Directives Advance Directive Response Recorded Date/Time Advance Directive on File No April 19, 2019 9:14pm Chief Complaint and Reason for Visit Chief Complaint Extremity Pain/Injury Reason for Visit [id number] Encounters Encounter Location(s) Arrival/Admit Date Discharge/Depart Date Provider(s) Departed [facility] April 19, 2019 April 19, 2019 LUIS FELIPE DAMON Emergency Room [facility] Medical 9:06pm 10:33pm Ctr Assessments No Assessments Information Available Functional Status No Functional Status information available Goals No Goals Information Available Immunizations No Immunization Information Available Mental Status No Mental Status Information Available Medical Equipment No Medical Equipment Information available Insurance Providers Guarantor Abbie Tabares Address [address] [facility] [address] Contact Info. Home Phone: Payer Policy Id Coverage Id Subscriber's Subscriber Id Effective Expiration Name Date Date [employer] [id number] Abbie Tabares [id number] Medicaid [id number] Abbie Tabares [id number] Plan of Treatment Crutches and BARBIE wrap to right knee Rest, elevate, ice compresses take the tramadol and naproxen you have at home for pain follow up with orthopedic if no improvement in 3-5 days return for new or worsening of symptoms Future Tests Future scheduled test information is unavailable Pending Tests Pending diagnostic test information is unavailable Future Visits Future appointment information is unavailable Referrals to Other Providers Reason for Referral Start Provider Provider Contact Provider Address Referral Date Information YESSY VIDALES Work Phone: [address] [place] [address] [facility] [address] Future Procedures Future procedure information is unavailable Future Medications Future medication information is unavailable Patient Instructions Internal Derangement Ankle Sprain, [id number] Social History Smoking Status Status Date of Observation Smokes tobacco daily (finding) April 19, 2019 9:14pm Assigned Sex Male Vital Signs Vital Reading Result Collection Date/Time
--- OUTSIDE RECORDS SUMMARY | 2019-04-22 18:15 | XMS REPORT ---
:1970 [facility] Address [address] [place] [address] [address] [place] [address] Care Team Providers Name Role Phone TREVOR [...] outside of Reference Ranges BMP, BASIC METABOLIC [id number] 15:07:00 Test Item Value Reference Range Comments SODIUM (test code=NA) 142 MMOL/L 137-145 K+ (test code=KSERUM) 5.6 MMOL/L 3.5-5.1 PLEASE NOTE NEW REFERENCE RANGE(S) IN EFFECT EFFECTIVE 10/25/2009 - NEW ANALYZER (GOGETMi / ?.?? 5600) CHLORIDE (test code=CL) 109 MMOL/L 98-107 CO2 (test code=CO2) 29 MMOL/L 22-30 BUN (test code=BUN) 12 MG/DL 9-20 CREA (test code=CREA) 0.9 MG/DL 0.8-1.5 GLUCOSE (test 97 MG/DL 70-99 Fasting glucose normal code=GLUCOSE) <100 MG/DL- [employer] recommendation CALCIUM (test 9.4 MG/DL 8.4-10.2 code=CABLOOD) GFR (test code=GFR) 95 mL/min/1.73m2 A GFR of >90 mL/min/1.73m2 is considered normal. [id number] 15:07:00 Test Item Value Reference Range Comments MG (test code=MG) 2.4 mg/dL 1.6-2.3 PROTHROMBIN TIME WITH [id number] 14:02:00 Test Item Value Reference Range Comments PROTHROMBIN TIME (test 13.7 SECONDS 12.0-14.6 INR Usual Range=2 to 3 for code=PT) prevention of deep vein thrombosis (DVT) INR (test code=INR) 1.1 [id number] 13:45:00 Test Item Value Reference Range Comments [...] code=NEUT) 3.9 K/UL 1.2-7.2 CHEST XR 2 [id number] 12:25:[address] [id number] IMAGING REPORTPatient Name: Yamil DECKER of Service: [id number]: 48 Sex: M Order #: [id number] Room: [facility]: 1970 X-Ray Number: [id number] Record Number: [id number] Hospital Number: [id number] Physician: NELIDA WAITE -Ordering Physician: NELIDA WAITE [...] 12:23:24PET, CARDIAC PERFUSION MULTIPLE STUDIES, REST AND [id number] 15:30:00Reason for exam:-& gt;chest pain, multiple risk factors for CADFINAL REPORT PROCEDURE: Rest/Stress MYOCARDIAL PERFUSION PET with regadenoson\\XA9\\ CPT CODE: 01878 INDICATION: Chest pain, multiple risk factors for CAD HISTORY: Cardiac risk factors: Diabetes, hypertension, tobacco. Other cardiovascular history: Previous AK. Recent cardiac symptoms: Chest pain. PROTOCOL: Limited low-dose CT imaging was performed for attenuation correction. 40.0 mCi of Rb-82 chloride was injected iv at rest, and gated PET ( positron emission tomography) images were obtained. Subsequently, 40.0 mCi of Rb -82 chloride was injected iv at expected peak pharmacologic effect, and gated PET images were obtained. [facility]IN[facility]: Pharmacologic stress was by 10-second iv [...] Normal extracardiac tracer distribution. 6. No previous [facility] study for comparison. NONINVASIVE RISK STRATIFICATION: The above findings are considered low risk (<1% annual mortality rate) based on the following criterion:- Normal or small myocardial perfusion defectat rest or with stress(JACC. 2012;59(9):857-81.) Signed: Bekah Cota MDReport Verified Date/Time:11/27/2017 15:30:18 Reading Location: [address] Reading Room HEMOGLOBIN [id number] 09:48:00 Test Item Value Reference Range Comments HEMOGLOBIN A1C (BEAKER) (test ptst=950) 4.9 % 4.3-6.1 BASIC METABOLIC [id number] 06:47:00 Test Item Value Reference Range Comments SODIUM (BEAKER) (test 136 meq/L 136-145 sshd=554) POTASSIUM (BEAKER) (test 3.9 meq/L 3.5-5.1 zqwl=980) CHLORIDE (BEAKER) (test 108 meq/L 98-107 axtt=145) CO2 (BEAKER) (test 23 meq/L 22-29 dutt=455) BLOOD UREA NITROGEN 12 mg/dL 7-21 (BEAKER) (test xgzo=119) CREATININE (BEAKER) (test 0.85 mg/dL 0.57-1.25 zbit=041) GLUCOSE RANDOM (BEAKER) 92 mg/dL 70-105 (test jymk=226) CALCIUM (BEAKER) (test 8.5 mg/dL 8.4-10.2 uctg=390) EGFR (BEAKER) (test mL/min/1.73 sq m INSUFFICIENT CLINICAL DATA tlvz=9399) TO CALCULATE ESTIMATED GFR. TROPONIN [id number] 06:44:00 Test Item Value Reference Range Comments TROPONIN I (BEAKER) (test dodu=963) < ng/mL 0.00-0.03 Troponin I (TnI) levels [...] failure, acidosis, acute neurological disease, and persistent tachyarrhythmia.[id number] 06:43:00 Test Item Value Reference Range Comments MAGNESIUM (BEAKER) (test zmvd=479) 2.7 mg/dL 1.6-2.6 CBC W/PLT COUNT & AUTO [id number] 06:09:00 Test Item Value Reference Range Comments WHITE BLOOD CELL COUNT (BEAKER) (test drum=600) 9.5 K/ L 3.5-10.5 RED BLOOD CELL COUNT (BEAKER) (test xbdd=413) 3.94 M/ L 4.63-6.08 HEMOGLOBIN (BEAKER) (test xteb=976) 12.3 GM/DL 13.7-17.5 HEMATOCRIT (BEAKER) (test ksro=492) 37.8 % 40.1-51.0 MEAN CORPUSCULAR VOLUME (BEAKER) (test bzbk=124) 95.9 fL 79.0-92.2 MEAN CORPUSCULAR HEMOGLOBIN (BEAKER) (test 31.2 pg 25.7-32.2 hrwm=556) MEAN CORPUSCULAR HEMOGLOBIN CONC (BEAKER) (test 32.5 GM/DL 32.3-36.5 yzil=731) RED CELL DISTRIBUTION WIDTH (BEAKER) (test 13.8 % 11.6-14.4 jthe=289) PLATELET COUNT (BEAKER) (test bmzu=647) 187 K/CU MM 150-450 MEAN PLATELET VOLUME (BEAKER) (test sykw=641) 10.5 fL 9.4-12.4 NUCLEATED RED BLOOD CELLS (BEAKER) (test 0 /100 WBC 0-0 lhod=575) NEUTROPHILS RELATIVE PERCENT (BEAKER) (test 56 % xvut=129) LYMPHOCYTES RELATIVE PERCENT (BEAKER) (test 32 % kfad=606) MONOCYTES RELATIVE PERCENT (BEAKER) (test 7 % vdeg=286) EOSINOPHILS RELATIVE PERCENT (BEAKER) (test 5 % nmlp=208) BASOPHILS RELATIVE PERCENT (BEAKER) (test 1 % rwbx=638) NEUTROPHILS ABSOLUTE COUNT (BEAKER) (test 5.28 K/ L 1.78-5.38 onjk=002) LYMPHOCYTES ABSOLUTE COUNT (BEAKER) (test 3.03 K/ L 1.32-3.57 tewz=702) MONOCYTES ABSOLUTE COUNT (BEAKER) (test 0.69 K/ L 0.30-0.82 uxia=914) EOSINOPHILS ABSOLUTE COUNT (BEAKER) (test 0.45 K/ L 0.04-0.54 erqt=825) BASOPHILS ABSOLUTE COUNT (BEAKER) (test 0.06 K/ L 0.01-0.08 khha=856) IMMATURE GRANULOCYTES-RELATIVE PERCENT (BEAKER) 0 % 0-1 (test bsfz=1803) TROPONIN [id number] 01:49:00 Test Item Value Reference Range Comments TROPONIN I (BEAKER) (test mcxb=074) < ng/mL 0.00-0.03 Troponin I (TnI) levels [...] acute neurological disease, and persistent tachyarrhythmia.BASIC METABOLIC [id number] 01:49:00 Test Item Value Reference Range Comments SODIUM (BEAKER) (test 137 meq/L 136-145 ackn=619) POTASSIUM (BEAKER) (test 3.7 meq/L 3.5-5.1 kojk=141) CHLORIDE (BEAKER) (test 109 meq/L 98-107 iscw=359) CO2 (BEAKER) (test 23 meq/L 22-29 lzlz=858) BLOOD UREA NITROGEN 12 mg/dL 7-21 (BEAKER) (test jnrq=736) CREATININE (BEAKER) (test 0.91 mg/dL 0.57-1.25 sibm=680) GLUCOSE RANDOM (BEAKER) 121 mg/dL 70-105 (test hela=466) CALCIUM (BEAKER) (test 8.8 mg/dL 8.4-10.2 kpzs=458) EGFR (BEAKER) (test mL/min/1.73 sq m INSUFFICIENT CLINICAL DATA xwmw=9645) TO CALCULATE ESTIMATED GFR. [id number] 01:42:00 Test Item Value Reference Range Comments MAGNESIUM (BEAKER) (test imqy=802) 2.2 mg/dL 1.6-2.6 LIPID [id number] 01:42:00 Test Item Value Reference Range Comments TRIGLYCERIDES (BEAKER) (test crcw=903) 130 mg/dL CHOLESTEROL (BEAKER) (test ujus=486) 164 mg/dL HDL CHOLESTEROL (BEAKER) (test kiwl=914) 31 mg/dL LDL CHOLESTEROL CALCULATED (BEAKER) (test 107 mg/dL letb=894) Triglyceride Reference Range: Low Risk <150 Borderline 150- 199 High Risk 200-499 Very High Risk >=500Cholesterol Reference Range: Low Risk <200 Borderline 200-239 High Risk > 240HDL Cholesterol Reference Range: Low Risk >=60 High Risk <40LDL Cholesterol Reference Range: Optimal <100 Near Optimal 100-129 Borderline 130-159 High 160-189 Very High >=190HEPATIC FUNCTION [id number] 01:42:00 Test Item Value Reference Range Comments TOTAL PROTEIN (BEAKER) (test vrig=515) 6.1 gm/dL 6.0-8.3 ALBUMIN (BEAKER) (test hdrj=8735) 3.8 g/dL 3.5-5.0 BILIRUBIN TOTAL (BEAKER) (test nrfo=835) 0.2 mg/dL 0.2-1.2 BILIRUBIN DIRECT (BEAKER) (test jfjc=994) 0.1 mg/dL 0.1-0.5 ALKALINE PHOSPHATASE (BEAKER) (test qsfg=235) 108 U/L 40-150 AST (SGOT) (BEAKER) (test dqgp=003) 9 U/L 5-34 ALT (SGPT) (BEAKER) (test fqsh=967) 8 U/L 6-55 CBC W/PLT COUNT & AUTO [id number] 00:59:00 Test Item Value Reference Range Comments WHITE BLOOD CELL COUNT (BEAKER) (test xape=243) 12.9 K/ L 3.5-10.5 RED BLOOD CELL COUNT (BEAKER) (test cgkb=262) 4.07 M/ L 4.63-6.08 HEMOGLOBIN (BEAKER) (test qibp=005) 12.8 GM/DL 13.7-17.5 HEMATOCRIT (BEAKER) (test nzkg=689) 39.0 % 40.1-51.0 MEAN CORPUSCULAR VOLUME (BEAKER) (test raai=444) 95.8 fL 79.0-92.2 MEAN CORPUSCULAR HEMOGLOBIN (BEAKER) (test 31.4 pg 25.7-32.2 czhh=442) MEAN CORPUSCULAR HEMOGLOBIN CONC (BEAKER) (test 32.8 GM/DL 32.3-36.5 tqfc=126) RED CELL DISTRIBUTION WIDTH (BEAKER) (test 13.9 % 11.6-14.4 kmby=643) PLATELET COUNT (BEAKER) (test pvfl=577) 210 K/CU MM 150-450 MEAN PLATELET VOLUME (BEAKER) (test vmki=290) 10.4 fL 9.4-12.4 NUCLEATED RED BLOOD CELLS (BEAKER) (test 0 /100 WBC 0-0 kfvj=275) NEUTROPHILS RELATIVE PERCENT (BEAKER) (test 60 % pbbl=402) LYMPHOCYTES RELATIVE PERCENT (BEAKER) (test 29 % gzci=810) MONOCYTES RELATIVE PERCENT (BEAKER) (test 6 % ucfc=671) EOSINOPHILS RELATIVE PERCENT (BEAKER) (test 4 % ceow=007) BASOPHILS RELATIVE PERCENT (BEAKER) (test 0 % qllq=565) NEUTROPHILS ABSOLUTE COUNT (BEAKER) (test 7.69 K/ L 1.78-5.38 kbqd=753) LYMPHOCYTES ABSOLUTE COUNT (BEAKER) (test 3.75 K/ L 1.32-3.57 mwoh=977) MONOCYTES ABSOLUTE COUNT (BEAKER) (test 0.82 K/ L 0.30-0.82 cfhs=584) EOSINOPHILS ABSOLUTE COUNT (BEAKER) (test 0.57 K/ L 0.04-0.54 bxzr=896) BASOPHILS ABSOLUTE COUNT (BEAKER) (test 0.05 K/ L 0.01-0.08 nuho=160) IMMATURE GRANULOCYTES-RELATIVE PERCENT (BEAKER) 0 % 0-1 (test wpnz=5250)
[2019-04-22 18:55] LABS: Absolute Lymphocytes (CBC) 2.9 K/uL (0.7-4.9); Basophils % 0.5 % (0-1.3); Lymphocytes % 36.8 % (15.3-44.8); MPV 9.1 fL (7.6-11.3); Protime INR 0.97; RBC Red Blood Cell Count 4.69 M/uL (4.33-5.43)
[2019-04-22 19:11] LABS: ALT/SGPT 21 U/L (12-78); AST/SGOT 15 U/L (15-37); Alkaline Phosphatase 91 U/L (45-117); BUN Blood Urea Nitrogen 13 mg/dL (7-18); Bicarbonate 26 mmol/L (21-32); Bilirubin Direct < 0.1 mg/dL (0-0.2); Bilirubin Total 0.2 mg/dL (0.2-1.0); Glucose Level 86 mg/dL (74-106); Magnesium 2.1 mg/dL (1.8-2.4); NT PRO-BNP 87 pg/mL (<125); Potassium 3.7 mmol/L (3.5-5.1); Protein, Total 7.2 g/dL (6.4-8.2); Sodium Level 143 mmol/L (136-145); Troponin (Emerg Dept Use Only) < 0.02 ng/mL (0.0-0.045)
--- NOTE | 2019-04-22 19:11 | RAD REPORT ---
EXAM DESCRIPTION: Josh Single View04/22/2019 6:54 pm CLINICAL HISTORY: Chest pain COMPARISON: none FINDINGS: The lungs are mildly hyperaerated. The lungs appear clear of acute infiltrate. The heart is normal size IMPRESSION: No acute abnormalities displayed
[2019-04-22] MEDS ORDERED: MORPHINE 4 MG/ML SYR ONE (19:21)
[2019-04-22] MEDS ORDERED: ONDANSETRON 4 MG/2 ML VIAL ONE (19:22)
--- NOTE | 2019-04-22 19:47 | RAD REPORT ---
EXAM DESCRIPTION: US[facility] [facility] Ltd04/22/2019 7:19 pm CLINICAL HISTORY: Right leg pain and swelling. COMPARISON: None. FINDINGS: Right common femoral, superficial femoral, popliteal and right posterior tibial veins are compressible and demonstrate augmentation. Doppler demonstrates good flow. IMPRESSION: No evidence of deep venous thrombosis involving the right lower extremity.
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
[2019-04-22] MEDS ORDERED: HYDROCODONE/APAP 5/325 MG TAB ONE (21:37)
[2019-04-22 22:27] VITALS: TEMP 98.9; O2SAT 99
[2019-04-22 22:28] VITALS: BP 127/80
--- NOTE | 2019-04-24 07:51 | EKG ---
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
== END 2019-04-22 22:10 | disposition home or self-care (01) ==
LOC: ER 18:13
DX: R07.9 Chest pain, unspecified (principal); M79.661 Pain in right lower leg; Z91.040 Latex allergy status; Z91.018 Allergy to other foods; I25.2 Old myocardial infarction; I10 Essential (primary) hypertension
CPT/HCPCS: 93005; 85025; 80048; 36415; 83735; 85610; 80076; 84484 ×2; 83880; 71045; 93971; 96375; 96374; 99285; J2405

== ENCOUNTER 2019-05-27 13:12 | Emergency (ER) | payer OTHER ==
--- OUTSIDE RECORDS SUMMARY | 2019-05-27 13:15 | XMS REPORT | Summary of Care ---
:1970 Author Organization [facility] Address [address] [place] [id number] Care Team Providers Name Role Phone Pcp, Patient Does Not Have A Primary Care Provider Reason for Referral Radiology Services (Routine) Status Reason Specialty Diagnoses / Referred By Referred To Procedures Contact Contact New Request Diagnostic Diagnoses Acute pain of right knee Jonny Sanchez, Radiology Procedures XR KNEE <3 VW RIGHT PAC [address] [place] [address] Reason for Visit Reason Comments New Patient Knee Pain Right knee/leg injury DOI: about 1 week ago Encounter Details Date Type Department Care Team Description 04/21/2019 Office Visit [facility] Orthopaedic Jonny Sanchez, Acute pain of right Surgery- [place] PAC knee (Primary Dx) [address] [facility] [facility], [address] [facility] [place] [address] [place], [place] [phone] [address] Allergies Active Allergy Reactions Severity Noted Date Comments Adhesive Unknown - See comments 04/15/2019 Tape-Silicones Hydrocodone-Acetaminop Dizziness, Rash High 11/26/2017 Other reaction(s): hen Other (see comments) Latex Unknown - See comments 04/15/2019 documented as of this encounter (statuses as of 04/21/2019) Medications Medication Sig Dispensed Refills Start Date End Date Status gabapentin 100 mg Take 300 mg by 0 Active capsule mouth 4 (four) times daily. carvedilol 12.5 mg Take 12.5 mg by 0 Active tablet mouth 2 (two) times daily. venlafaxine XR 150 mg Take 150 mg by 0 Active 24 hr capsule mouth daily. nitroglycerin 0.[address] 0.4 mg 0 Active sublingual tablet under the tongue every 5 (five) minutes as needed for Chest pain. RISPERIDONE ORAL Take 3 mg by 0 Active mouth daily. aspirin 81 mg EC tablet Take 81 mg by 0 Active mouth. naproxen 500 mg tablet TK 1 T PO BID WF 0 04/17/2019 Active rosuvastatin 10 mg Take 10 mg by 0 Active tablet mouth. traMADol 50 mg tablet TK 1 T PO Q 8 H 0 04/17/2019 Active PRN carvediloL 12.5 mg Take 1 tablet by 0 Active tablet mouth. gabapentin 300 mg Take 300 mg by 0 Active capsule mouth. risperiDONE 3 mg tablet Take 3 mg by 0 Active mouth. venlafaxine XR 150 mg Take 150 mg by 0 Active 24 hr capsule mouth. documented as of this encounter (statuses as of 04/21/2019) Active Problems Not on filedocumented as of this encounter (statuses as of 04/21/2019) Social History Tobacco Use Types Packs/Day Years Used Date Current Every Day Smoker Smokeless Tobacco: Never Used Sex Assigned at Date Recorded Not on file Job Start Date Occupation Industry Not on file Not on file Not on file Travel History Travel Start Travel End No recent travel history available. documented as of this encounter Last Filed Vital Signs Vital Sign Reading Time Taken Comments Blood Pressure 133/83 04/21/2019 8:11 AM DAY CAMP COUNSELOR Pulse - - Temperature - - Respiratory Rate 18 04/21/2019 8:11 AM DAY CAMP COUNSELOR Oxygen Saturation - - Inhaled Oxygen Concentration - - Weight 65.8 kg (145 lb) 04/21/2019 8:11 AM DAY CAMP COUNSELOR Height 180.3 cm (5' 11") 04/21/2019 8:11 AM DAY CAMP COUNSELOR Body Mass Index 20.22 04/21/2019 8:11 AM DAY CAMP COUNSELOR documented in this encounter Progress Notes Jonny Sanchez, PAC - 04/21/2019 8:30 AM CST Jose Tabares is a 49 year old male Chief Complaint Patient presents with New Patient Knee Pain Right knee/leg injury DOI: about 1 week ago Vitals: 04/21/19 0811 BP: 133/83 BP Location: Left arm Patient Position: Sitting BP CUFF SIZE: Adult Medium Resp: 18 Weight: 65.8 kg (145 lb) Height: 71" (180.3 cm) [employer] #[id number] - [place] [address] [address] [facility] AT [facility] [address] Incident occurred: patient states he has had 3 falls this past month on 2019, 03/25/2019, and about 04/14/2019 Incident location: home Injury mechanism: patient states he just fell on knee Pain location: right knee, leg DME status: brace Radiology status: has films from [facility] and [facility] but did not bring any of them Patient also states pain meds naproxen and tramadol are not working All Vitals taken, allergies and all medications reviewed, fall risk assessed. Pain level 5/10. GAEL GAFFNEY MA 04/21/2019 8:19 AM Jose Tabares is a 49 year old male. He has fallen 3 times anywhere first March 25 and then a third time one week ago he's been seen at [facility] and [facility]. x-rays are not available from [place] or [place] but we were able to pull up the x-rays from [facility] which showed no acutefracture He is on disability for visual impairment he has cataracts that he has had for a long time. Historyof complaint today is pain in his right knee" it feels like he's being hit in the knee with a ball pain hammer". He has a past medical history of ligament injury that required immobilization for 6 weeks and he thinks this feels just like that that was in the year 1999. His pain is 9/ 10 in intensity.He was given tramadol and naproxen in the emergency room and it' s not relieving his pain. Allergies Jose is allergic to hydrocodone-acetaminophen; adhesive tape-silicones; and latex. Medications Outpatient Medications Prior to Visit Medication Sig Dispense Refill aspirin 81 mg EC tablet Take 81 mg by mouth. carvediloL 12.5 mg tablet Take 1 tablet by mouth. gabapentin 300 mg capsule Take 300 mg by mouth. naproxen 500 mg tablet TK 1 T PO BID WF risperiDONE 3 mg tablet Take 3 mg by mouth. rosuvastatin 10 mg tablet Take 10 mg by mouth. traMADol 50 mg tablet TK 1 T PO Q 8 H PRN venlafaxine XR 150 mg 24 hr capsule Take 150 mg by mouth. carvedilol 12.5 mg tablet Take 12.5 mg by mouth 2 (two) times daily. gabapentin 100 mg capsule Take 300 mg by mouth 4 (four) times daily. nitroglycerin 0.[address] 0.4 mg under the tongue every 5 (five) minutes as needed for Chest pain. RISPERIDONE ORAL Take 3 mg by mouth daily. venlafaxine XR 150 mg 24 hr capsule Take 150 mg by mouth daily. No facility-administered medications prior to visit. Histories Past Medical History: Diagnosis Date Bipolar 1 disorder Depression HTN (hypertension) Migraines No past surgical history on file. Social History Socioeconomic History Marital status: Spouse name: Not on file Number of children: Not on file Years of education: Not on file Highest education level: Not on file Occupational History Not on file Social Needs Financial resource strain: Not on file Food insecurity: Worry: Not on file Inability: Not on file Transportation needs: Medical: Not on file Non-medical: Not on file Tobacco Use Smoking status: Not on file Substance and Sexual Activity Alcohol use: Not on file Drug use: Not on file Sexual activity: Not on file Lifestyle Physical activity: Days per week: Not on file Minutes per session: Not on file Stress: Not on file Relationships Social connections: Talks on phone: Not on file Gets together: Not on file Attends holiness service: Not on file Active member of club or organization: Not on file Attends meetings of clubs or organizations: Not on file Relationship status: Not on file Intimate partner violence: Fear of current or ex partner: Not on file Emotionally abused: Not on file Physically abused: Not on file Forced sexual activity: Not on file Other Topics Concern Not on file Social History Narrative Not on file No family history on file. Review of Systems Constitutional: Negative. HENT: Negative. Eyes: Negative. Respiratory: Negative. Breasts: Negative. Cardiovascular: Negative. Gastrointestinal: Negative. Genitourinary: Negative. Musculoskeletal: Positive for joint swelling. Skin: Negative. Neurological: Negative. Psychiatric/Behavioral: Negative. Endocrine: Endocrine negative Vital Signs Ht 71" (180.3 cm) | Wt 68 kg (150 lb) | BMI 20.92 kg/m Physical Exam Musculoskeletal: Right shoulder: He exhibits pain. Physical Exam Constitutional: oriented to person, place, and time. appears well-developed and well-nourished. HENT: Head: Normocephalic and atraumatic. Right Ear: External ear normal. Left Ear: External ear normal. Eyes: Conjunctivae are normal. Neck: Normal range of motion. No strabismus Neck supple. Cardiovascular: Normal rate and regular rhythm. Pulmonary/Chest: Normal respiratory rate equal chest rise and fall in no apparent distress Abdominal: Abdomen nondistended nontender Neurological: alert and oriented to person, place, and time. No asymmetry Skin: Skin is warm and dry. Psychiatric: normal mood and affect. behavior is normal. Judgment and thought content normal. Nursing note and vitals reviewed. Is complaining of pain in his tibial plateau of the right knee in the medial and lateral sides the medial side is worsened by varus stress and the lateral side is worsened by valgus stress this is loading of the joints there is no laxity to the medial or lateral collateral ligaments and there is no increased pain with stretching the collateral ligaments, he has some mild bruising anterior posterior cruciate ligaments stable to anterior posterior drawer exam. Ankle x-ray 3 views from [facility] obtained on 03/23/2019 impression: No gross fracture deformity is seen however there is a suspected small punctate bone avulsion from the proximal lateral margin of the cuboid bone at the calcaneus cuboid articulation There were also tib-fib x-rays and the x-rays which were negative Assessment/Plan Diagnosis 1. Acute pain of right knee XR KNEE <3 VW RIGHT Use a knee immobilizer as needed continue with oral anti-inflammatories as needed and Tylenol. Recommend a straight leg raise exercise program to maintain quadriceps tone and wean out of the kneeimmobilizer as soon as he can tolerate it. If this is still hurting in a week follow-up for re-x-ray He has naproxen from the emergency room. orthopedic RICE Rest, ice, compression, elevation documented in this encounter Plan of Treatment Name Type Priority Associated Diagnoses Date/Time XR KNEE <3 VW RIGHT IMAGING Routine Acute pain of right knee 04/21/2019 8: 26 AM DAY CAMP COUNSELOR Name Type Priority Associated Diagnoses Order Schedule XR KNEE <3 VW RIGHT IMAGING Routine Acute pain of right knee Expected: , Expires: 04/21/2020 Health Maintenance Due Date Last Done Comments DTaP,Tdap,and Td Vaccines (1 - 02/18/1980 Tdap) INFLUENZA VACCINE (#1) 2018 COLONOSCOPY 2019 Zoster Recombinant Vaccine 2019 (SHINGRIX) (1 of 2) PNEUMOCOCCAL 0-64 YEARS COMBINED Aged Out No longer eligible based on SERIES patient's age to complete this topic documented as of this encounter Results Not on filedocumented in this encounter Visit Diagnoses Diagnosis Acute pain of right knee - Primary documented in this encounter Insurance Payer Benefit Plan Subscriber ID Effective Phone Address Type / Group Dates WELLCARE WELLCARE [id number] 2019-Pre Medicare Adv [place] sent HMO CLASSIC/VALUE [facility] MEDICAID OF xxxxxxxxx 2019-Pres [phone] Medicaid [place] ent [id number] [place] [address] (Work) [id number] documented as of this encounter Advance Directives Name Relationship Healthcare Agent Communication Relationship Katie Tabares Spouse Primary healthcare agent [email or web address]
--- OUTSIDE RECORDS SUMMARY | 2019-05-27 13:15 | XMS REPORT | Summary of Care ---
:1970 Author Organization [facility] Address [address] [place] [address] Care Team Providers Name Role Phone Pcp, Patient Does Not Have A Primary Care Provider Encounter Details Date Type Department Care Team Description 04/21/2019 Orders Only [facility] Doctor Unassigned, No [address] [facility] [place] [address] [address] [place] [address] Allergies Active Allergy Reactions Severity Noted Date Comments Hydrocodone-Acetaminophen Dizziness High 12/21/2017 documented as of this encounter (statuses as [...] 3 mg by 0 Active mouth daily. documented as of this encounter (statuses as of 04/21/2019) Active Problems Not on filedocumented as of this encounter (statuses as of 04/21/2019) Social History Tobacco Use Types Packs/Day Years Used Date Never Assessed Sex Assigned at Date Recorded Not on file Job Start Date Occupation Industry Not on file Not on file Not on file Travel History Travel Start Travel End No recent travel history available. documented as of this encounter Last Filed Vital Signs Not on filedocumented in this encounter Plan of Treatment Date Type Specialty Care Team Description 04/21/2019 Office Visit Orthopedic Surgery Jonny Sanchez S, PAC [address] [place] [address] Health Maintenance Due Date Last Done Comments DTaP,Tdap,and Td Vaccines (1 - 02/18/1980 Tdap) INFLUENZA VACCINE (#1) 2018 COLONOSCOPY 2019 Zoster Recombinant Vaccine 2019 (SHINGRIX) (1 of 2) PNEUMOCOCCAL 0-64 YEARS COMBINED Aged Out No longer eligible based on SERIES patient's age to complete this topic documented as of this encounter Procedures Procedure Name Priority Date/Time Associated Diagnosis Comments ASSIGNMENT OF BENEFITS Routine 04/21/2019 8:06 AM COMMUNICATIONS 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
--- OUTSIDE RECORDS SUMMARY | 2019-05-27 13:15 | XMS REPORT | Summary of Care ---
:1970 Author Organization [facility] Address [address] [place] [address] Care Team Providers Name Role Phone Pcp, Patient Does Not Have A Primary Care Provider Reason for Referral Radiology Services (Routine) Status Reason Specialty Diagnoses / Referred By Referred To Procedures Contact Contact New Request Diagnostic Diagnoses Acute pain of right knee Jonny Sanchez, Radiology Procedures XR KNEE <3 VW RIGHT PAC [address] [place] [address] Reason for Visit Reason Comments New Patient Knee Pain Right knee/leg injury DOI: about 1 week ago Encounter Details Date Type Department Care Team Description 04/21/2019 Office Visit [facility] Orthopaedic Jonny Sanchez, Acute pain of right Surgery- [place] PAC knee (Primary Dx) [address] [facility], [address] [facility] [place] [address] [place], [place] [phone] Allergies Active Allergy Reactions Severity Noted [...] Comments Blood Pressure 133/83 04/21/2019 8:11 AM EVENT MARKETING COORDINATOR Pulse - - Temperature - - Respiratory Rate 18 04/21/2019 8:11 AM EVENT MARKETING COORDINATOR Oxygen Saturation - - Inhaled Oxygen Concentration - - Weight 65.8 kg (145 lb) 04/21/2019 8:11 AM EVENT MARKETING COORDINATOR Height 180.3 cm (5' 11") 04/21/2019 8:11 AM EVENT MARKETING COORDINATOR Body Mass Index 20.22 04/21/2019 8:11 AM EVENT MARKETING COORDINATOR documented in this encounter Progress Notes Jonny [...] kg (145 lb) Height: 71" (180.3 cm) [employer] #[id number] - [place] [address] [address] [facility] AT [facility] [address] Incident occurred: patient states he has had 3 falls this past month on 2019, 03/25/2019, and about 04/14/2019 Incident location: home Injury mechanism: patient states he just fell on knee Pain location: right knee, leg DME status: brace Radiology status: has films from [facility] and [facility] but did not bring any of them [...] one week ago he's been seen at [facility] and [facility]. x-rays are not available from [place] or [place] but we were able to pull up the x-rays from [facility] which showed no acutefracture He is on [...] file Gets together: Not on file Attends buddhism service: Not on file Active member of [...] drawer exam. Ankle x-ray 3 views from [facility] obtained on 03/23/2019 impression: No gross fracture [...] of right knee 04/21/2019 8: 26 AM EVENT MARKETING COORDINATOR Name Type Priority Associated Diagnoses Order Schedule [...] Address Type / Group Dates WELLCARE WELLCARE [id number] 2019-Pre Medicare Adv [place] [place] PL[employer] sent HMO CLASSIC/VALUE [facility] MEDICAID OF xxxxxxxxx 2019-Pres [phone] Medicaid [place] ent [id number] [place] [address] (Work) [phone] documented as of this encounter Advance Directives Name Relationship Healthcare Agent Communication Relationship Katie Tabares Spouse Primary healthcare agent [email or web address]
--- OUTSIDE RECORDS SUMMARY | 2019-05-27 13:15 | XMS REPORT ---
:1970 [facility] Address [address] [place] [address] [address] [place] [address] Care Team Providers Name Role Phone TREVOR [...] outside of Reference Ranges BMP, BASIC METABOLIC [id number] 15:07:00 Test Item Value Reference Range Comments SODIUM (test code=NA) 142 MMOL/L 137-145 K+ (test code=KSERUM) 5.6 MMOL/L 3.5-5.1 PLEASE NOTE NEW REFERENCE RANGE(S) IN EFFECT EFFECTIVE 10/25/2009 - NEW ANALYZER (Moxtra 5600) CHLORIDE (test code=CL) 109 MMOL/L 98-107 CO2 (test code=CO2) 29 MMOL/L 22-30 BUN (test code=BUN) 12 MG/DL 9-20 CREA (test code=CREA) 0.9 MG/DL 0.8-1.5 GLUCOSE (test 97 MG/DL 70-99 Fasting glucose normal code=GLUCOSE) <100 MG/DL- [employer] recommendation CALCIUM (test 9.4 MG/DL 8.4-10.2 code=CABLOOD) GFR (test code=GFR) 95 mL/min/1.73m2 A GFR of >90 mL/min/1.73m2 is considered normal. [id number] 15:07:00 Test Item Value Reference Range Comments MG (test code=MG) 2.4 mg/dL 1.6-2.3 PROTHROMBIN TIME WITH [id number] 14:02:00 Test Item Value Reference Range Comments PROTHROMBIN TIME (test 13.7 SECONDS 12.0-14.6 INR Usual Range=2 to 3 for code=PT) prevention of deep vein thrombosis (DVT) INR (test code=INR) 1.1 [id number] 13:45:00 Test Item Value Reference Range Comments [...] code=NEUT) 3.9 K/UL 1.2-7.2 CHEST XR 2 [id number] 12:25:[address] [id number] IMAGING REPORTPatient Name: Yamil DECKER of Service: [id number]: 48 Sex: M Order #: [id number] Room: [facility]: 1970 X-Ray Number: [id number] Record Number: [id number] Hospital Number: [id number] Physician: NELIDA WAITE -Ordering Physician: NELIDA WAITE [...] 12:23:24PET, CARDIAC PERFUSION MULTIPLE STUDIES, REST AND [id number] 15:30:00Reason for exam:-& gt;chest pain, multiple risk factors for CADFINAL REPORT PROCEDURE: Rest/Stress MYOCARDIAL PERFUSION PET with regadenoson\\XA9\\ CPT CODE: 93659 INDICATION: Chest pain, multiple risk factors for CAD HISTORY: Cardiac risk factors: Diabetes, hypertension, tobacco. Other cardiovascular history: Previous [place]. Recent cardiac symptoms: Chest pain. PROTOCOL: Limited low-dose CT imaging was performed for attenuation correction. 40.0 mCi of Rb-82 chloride was injected iv at rest, and gated PET ( positron emission tomography) images were obtained. Subsequently, 40.0 mCi of Rb -82 chloride was injected iv at expected peak pharmacologic effect, and gated PET images were obtained. [facility] Pharmacologic stress was by 10-second [...] Cota MDReport Verified Date/Time:11/27/2017 15:30:18 Reading Location: [address] Reading Room HEMOGLOBIN [id number] 09:48:00 Test Item Value Reference Range Comments HEMOGLOBIN A1C (BEAKER) (test pksc=234) 4.9 % 4.3-6.1 BASIC METABOLIC [id number] 06:47:00 Test Item Value Reference Range Comments SODIUM (BEAKER) (test 136 meq/L 136-145 qank=244) POTASSIUM (BEAKER) (test 3.9 meq/L 3.5-5.1 scul=525) CHLORIDE (BEAKER) (test 108 meq/L 98-107 zwlr=500) CO2 (BEAKER) (test 23 meq/L 22-29 hfmz=894) BLOOD UREA NITROGEN 12 mg/dL 7-21 (BEAKER) (test vnqf=185) CREATININE (BEAKER) (test 0.85 mg/dL 0.57-1.25 rznj=533) GLUCOSE RANDOM (BEAKER) 92 mg/dL 70-105 (test ospc=372) CALCIUM (BEAKER) (test 8.5 mg/dL 8.4-10.2 qovr=154) EGFR (BEAKER) (test mL/min/1.73 sq m INSUFFICIENT CLINICAL DATA hnrj=7772) TO CALCULATE ESTIMATED GFR. TROPONIN [id number] 06:44:00 Test Item Value Reference Range Comments TROPONIN I (BEAKER) (test vhzt=442) < ng/mL 0.00-0.03 Troponin I (TnI) levels [...] failure, acidosis, acute neurological disease, and persistent tachyarrhythmia.[id number] 06:43:00 Test Item Value Reference Range Comments MAGNESIUM (BEAKER) (test eyxs=053) 2.7 mg/dL 1.6-2.6 CBC W/PLT COUNT & AUTO [id number] 06:09:00 Test Item Value Reference Range Comments WHITE BLOOD CELL COUNT (BEAKER) (test ytsn=305) 9.5 K/ L 3.5-10.5 RED BLOOD CELL COUNT (BEAKER) (test rkcp=861) 3.94 M/ L 4.63-6.08 HEMOGLOBIN (BEAKER) (test xbqm=126) 12.3 GM/DL 13.7-17.5 HEMATOCRIT (BEAKER) (test ehwu=256) 37.8 % 40.1-51.0 MEAN CORPUSCULAR VOLUME (BEAKER) (test jzjc=361) 95.9 fL 79.0-92.2 MEAN CORPUSCULAR HEMOGLOBIN (BEAKER) (test 31.2 pg 25.7-32.2 gglw=798) MEAN CORPUSCULAR HEMOGLOBIN CONC (BEAKER) (test 32.5 GM/DL 32.3-36.5 kkue=630) RED CELL DISTRIBUTION WIDTH (BEAKER) (test 13.8 % 11.6-14.4 dfsy=647) PLATELET COUNT (BEAKER) (test lcxp=595) 187 K/CU MM 150-450 MEAN PLATELET VOLUME (BEAKER) (test cwhd=459) 10.5 fL 9.4-12.4 NUCLEATED RED BLOOD CELLS (BEAKER) (test 0 /100 WBC 0-0 suqz=419) NEUTROPHILS RELATIVE PERCENT (BEAKER) (test 56 % opkj=179) LYMPHOCYTES RELATIVE PERCENT (BEAKER) (test 32 % djsf=413) MONOCYTES RELATIVE PERCENT (BEAKER) (test 7 % myqp=178) EOSINOPHILS RELATIVE PERCENT (BEAKER) (test 5 % drnw=293) BASOPHILS RELATIVE PERCENT (BEAKER) (test 1 % eckj=104) NEUTROPHILS ABSOLUTE COUNT (BEAKER) (test 5.28 K/ L 1.78-5.38 oltl=677) LYMPHOCYTES ABSOLUTE COUNT (BEAKER) (test 3.03 K/ L 1.32-3.57 cmql=543) MONOCYTES ABSOLUTE COUNT (BEAKER) (test 0.69 K/ L 0.30-0.82 kxtm=666) EOSINOPHILS ABSOLUTE COUNT (BEAKER) (test 0.45 K/ L 0.04-0.54 jklw=096) BASOPHILS ABSOLUTE COUNT (BEAKER) (test 0.06 K/ L 0.01-0.08 qdsk=367) IMMATURE GRANULOCYTES-RELATIVE PERCENT (BEAKER) 0 % 0-1 (test oljw=0386) TROPONIN [id number] 01:49:00 Test Item Value Reference Range Comments TROPONIN I (BEAKER) (test noxd=108) < ng/mL 0.00-0.03 Troponin I (TnI) levels [...] acute neurological disease, and persistent tachyarrhythmia.BASIC METABOLIC [id number] 01:49:00 Test Item Value Reference Range Comments SODIUM (BEAKER) (test 137 meq/L 136-145 lxst=097) POTASSIUM (BEAKER) (test 3.7 meq/L 3.5-5.1 qqwq=241) CHLORIDE (BEAKER) (test 109 meq/L 98-107 zehs=298) CO2 (BEAKER) (test 23 meq/L 22-29 naie=923) BLOOD UREA NITROGEN 12 mg/dL 7-21 (BEAKER) (test dnmr=715) CREATININE (BEAKER) (test 0.91 mg/dL 0.57-1.25 lmjc=374) GLUCOSE RANDOM (BEAKER) 121 mg/dL 70-105 (test xqmj=466) CALCIUM (BEAKER) (test 8.8 mg/dL 8.4-10.2 gqqp=223) EGFR (BEAKER) (test mL/min/1.73 sq m INSUFFICIENT CLINICAL DATA jxin=3686) TO CALCULATE ESTIMATED GFR. [id number] 01:42:00 Test Item Value Reference Range Comments MAGNESIUM (BEAKER) (test aqeb=323) 2.2 mg/dL 1.6-2.6 LIPID [id number] 01:42:00 Test Item Value Reference Range Comments TRIGLYCERIDES (BEAKER) (test bffl=311) 130 mg/dL CHOLESTEROL (BEAKER) (test gsqb=543) 164 mg/dL HDL CHOLESTEROL (BEAKER) (test byhz=649) 31 mg/dL LDL CHOLESTEROL CALCULATED (BEAKER) (test 107 mg/dL efnx=015) Triglyceride Reference Range: Low Risk <150 Borderline 150- 199 High Risk 200-499 Very High Risk >=500Cholesterol Reference Range: Low Risk <200 Borderline 200-239 High Risk > 240HDL Cholesterol Reference Range: Low Risk >=60 High Risk <40LDL Cholesterol Reference Range: Optimal <100 Near Optimal 100-129 Borderline 130-159 High 160-189 Very High >=190HEPATIC FUNCTION [id number] 01:42:00 Test Item Value Reference Range Comments TOTAL PROTEIN (BEAKER) (test iunp=795) 6.1 gm/dL 6.0-8.3 ALBUMIN (BEAKER) (test nzzf=4636) 3.8 g/dL 3.5-5.0 BILIRUBIN TOTAL (BEAKER) (test azit=373) 0.2 mg/dL 0.2-1.2 BILIRUBIN DIRECT (BEAKER) (test mewc=887) 0.1 mg/dL 0.1-0.5 ALKALINE PHOSPHATASE (BEAKER) (test asdb=933) 108 U/L 40-150 AST (SGOT) (BEAKER) (test farf=604) 9 U/L 5-34 ALT (SGPT) (BEAKER) (test rqvz=833) 8 U/L 6-55 CBC W/PLT COUNT & AUTO [id number] 00:59:00 Test Item Value Reference Range Comments WHITE BLOOD CELL COUNT (BEAKER) (test yxxn=979) 12.9 K/ L 3.5-10.5 RED BLOOD CELL COUNT (BEAKER) (test nzvk=099) 4.07 M/ L 4.63-6.08 HEMOGLOBIN (BEAKER) (test fbhz=863) 12.8 GM/DL 13.7-17.5 HEMATOCRIT (BEAKER) (test mdbk=484) 39.0 % 40.1-51.0 MEAN CORPUSCULAR VOLUME (BEAKER) (test fldu=307) 95.8 fL 79.0-92.2 MEAN CORPUSCULAR HEMOGLOBIN (BEAKER) (test 31.4 pg 25.7-32.2 drnr=354) MEAN CORPUSCULAR HEMOGLOBIN CONC (BEAKER) (test 32.8 GM/DL 32.3-36.5 qddl=060) RED CELL DISTRIBUTION WIDTH (BEAKER) (test 13.9 % 11.6-14.4 cwyv=249) PLATELET COUNT (BEAKER) (test xhem=557) 210 K/CU MM 150-450 MEAN PLATELET VOLUME (BEAKER) (test ghjz=254) 10.4 fL 9.4-12.4 NUCLEATED RED BLOOD CELLS (BEAKER) (test 0 /100 WBC 0-0 nohh=214) NEUTROPHILS RELATIVE PERCENT (BEAKER) (test 60 % lwhs=203) LYMPHOCYTES RELATIVE PERCENT (BEAKER) (test 29 % nseq=757) MONOCYTES RELATIVE PERCENT (BEAKER) (test 6 % eqql=830) EOSINOPHILS RELATIVE PERCENT (BEAKER) (test 4 % jowr=664) BASOPHILS RELATIVE PERCENT (BEAKER) (test 0 % bfdk=503) NEUTROPHILS ABSOLUTE COUNT (BEAKER) (test 7.69 K/ L 1.78-5.38 rdtr=015) LYMPHOCYTES ABSOLUTE COUNT (BEAKER) (test 3.75 K/ L 1.32-3.57 wqmr=326) MONOCYTES ABSOLUTE COUNT (BEAKER) (test 0.82 K/ L 0.30-0.82 chxa=154) EOSINOPHILS ABSOLUTE COUNT (BEAKER) (test 0.57 K/ L 0.04-0.54 lluy=061) BASOPHILS ABSOLUTE COUNT (BEAKER) (test 0.05 K/ L 0.01-0.08 xnxd=393) IMMATURE GRANULOCYTES-RELATIVE PERCENT (BEAKER) 0 % 0-1 (test enxq=0944)
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
[2019-05-27] MEDS ORDERED: KETOROLAC 30 MG/ML INJ ONE (14:57)
[2019-05-27] MEDS ORDERED: HYDROCODONE/APAP 10/325 TAB ONE (14:57)
--- NOTE | 2019-05-27 15:24 | RAD REPORT ---
EXAM DESCRIPTION: RAD - Forearm Right - 05/27/2019 3:16 pm CLINICAL HISTORY: PAIN COMPARISON: No comparisons FINDINGS: Subtle cortical irregularity suspicious for fracture is noted involving the proximal shaft of the radius and ulna. Correlation with point tenderness in this region is advised.
--- NOTE | 2019-05-27 15:24 | RAD REPORT ---
EXAM DESCRIPTION: RAD - Wrist Right 3 View - 05/27/2019 3:16 pm CLINICAL HISTORY: DEFORMITY Pain COMPARISON: No comparisons FINDINGS: No fracture or dislocation seen.
[2019-05-27 16:01] VITALS: BP 147/80; TEMP 98.7; O2SAT 97
== END 2019-05-27 15:44 | disposition home or self-care (01) ==
LOC: ER 13:12
DX: S63.521A Sprain of radiocarpal joint of right wrist, initial encounter (principal); S56.911A Strain of unspecified muscles, fascia and tendons at forearm level, right arm, initial encounter; X50.9XXA Other and unspecified overexertion or strenuous movements or postures, initial encounter; Y93.89 Activity, other specified; Y92.9 Unspecified place or not applicable; Z91.011 Allergy to milk products; Z91.040 Latex allergy status; I10 Essential (primary) hypertension; I25.2 Old myocardial infarction; F41.9 Anxiety disorder, unspecified
CPT/HCPCS: 96372; 99283

== ENCOUNTER 2019-09-23 19:08 | Emergency (ER) | payer OTHER ==
--- OUTSIDE RECORDS SUMMARY | 2019-09-23 19:11 | XMS REPORT | Clinical Summary ---
:1970 Author Organization [facility] Address [address] [place] [address] Care Team Providers Name Role Phone Unavailable Primary Care Provider Unavailable Allergies Active Allergy Reactions Severity Noted Date Comments Hydrocodone-Acetaminophen Rash High 11/26/2017 Medications Medication Sig Dispensed Refills Start Date End Date Status venlafaxine Take 150 mg by 0 Act frank (EFFEXOR-XR) 150 MG mouth daily. 24 hr capsule gabapentin Take 300 mg by 0 Acti ve (NEURONTIN) 300 MG mouth 4 (four) capsule times daily. risperiDONE Take 3 mg by 0 Activ e (RISPERDAL) 3 MG mouth daily. tablet aspirin 81 MG Take 81 mg by 0 Ac tive chewable tablet mouth daily. carvedilol (COREG) Take 1 tablet 30 tablet 0 11/27/20172018 12.5 MG tablet (12.5 mg total) by mouth 2 (two) times daily with breakfast and dinner. Active Problems Problem Noted Date Chest pain 11/27/2017 Anxiety 11/27/2017 Essential hypertension 11/27/2017 Bipolar 1 disorder 11/27/2017 Migraine 11/27/2017 Tobacco abuse 11/27/2017 Family History Medical History Relation Name Comments [...] travel history available. Last Filed Vital Signs Not on file Plan of Treatment Not on file Results Not on fileafter 09/22/2018 Advance Directives For more information, please contact:[address] [phone] Code Status Date Activated Date Inactivated Comments Full Code 11/26/2017 11:56 PM 11/27/2017 10:05 PM This code status was determined by: Patient
--- OUTSIDE RECORDS SUMMARY | 2019-09-23 19:12 | XMS REPORT | Encounter Summary ---
:1970 Author Care Team Providers Name Role Phone Dr. Mireya Gomes Primary Care Provider Unavailable Karen Mae MD Primary Care Provider [phone] Reason for Visit Tobacco Cessation Counseling; TELE-AWV A nnual Wellness Visit Male Instructions 1. Advance directive discussed w ith patient advance care planning: car e instructions 2. Depression screening learning about depression learning about depression 3. Depression screening positive learning about depression learning about mood disord ers 4. Nicotine dependence stopping smoking: care ins tructions advised to quit smoking deciding about using medic gayle to quit smoking 5. Anxiety propranolol 10 mg tablet 6. Major depressive disorder citalopram 20 mg tablet 7. Prediabetes 8. Mild chronic obstructive pulm onary disease ProAir HFA 90 mcg/actuatio n aerosol inhaler 9. Hypercholesterolemia atorvastatin 10 mg tablet 10. Chronic back pain gabapentin 600 mg tablet naproxen 500 mg tablet 11. At risk for falls preventing falls: care ins tructions Discussion Note Completed a telephone visit with gonzales maldonado. Patient report he has enough meds currently and does not need any refills currently. Patient encouraged to wash hands frequently for 20 seconds, practice soci al distancing by stay home and maintaining physical space in public. Patient encour aged to seek medical care if he starts having continues cough, fever. Patient verbaliz ed understanding. Plan of Care Patient Instructions It was good to speak with you lexie curry today for your Medicare Annual Wellness Visit. You have been provided some information on healthy nutrition, including a diet rich in fruits and vegetables, minimizing simple carbohydrates, salt, and saturated fats. I want to encourage regular card iovascular exercise such as walking at [place] 30 minutes daily, 5 times per week. Please remember to schedule any prevent frank health measures that we talked about today. You have also been provided education on fall prevention and community- based lifestyle interventions to help reduc e health risks and promote healthy livin g in your Annual Wellness folder. Screening Recommendations 1. Vaccines Pneumonia: Recommended toda y Influenza: This Fall 2. Colorectal Cancer Screening: Colonoscopy (every 10 years) recommendedRecommended today 3. Annual Prostate Screening 4. Annual Depression Screening 5. Annual Alcohol Screening 6 . Annual Fall Risk Screening 7. Annual Health Risk Assessment Quitting Tobacco Goals Quitting smokin g is important for your health, but it is hard to do. We agreed to the following goals towards reducing your tobacco habits: Today we talked about how you are thi nking about quitting smoking, but not re esequiel yet. Since you want to smoke less, but are not ready to quit yet, we agreed that by your next appointment, you would smoke one less cigarette each day. Since your ready to quit smoking, we agreed th at you would smoke your last cigarette on . Residential Goals: *Permanently quit smoking *Improve lung function *Reduce my risk of getting emphysema, cancer and heart disease What can increase my chances of success for quitting smoking? *Regular exercise *Chew gum or hard can dy *Identify triggers that lead to smoking, and establish new strategies for coping with these situations *Keep yourself busy *Contact additional resources for [place], such as [employer] *Don't give up, even if you have a setback How can my healthcare team support me i n quitting smoking? *Follow up visits to assess progress *I dentify resources available to help you quit smoking *Consider medication to increase your chances of successfully quitting smoking *Referral to counseling for additional support Reminders Provider Appointments None recorded. Lab None recorded. Referral None recorded. Procedures None recorded. Surgeries None recorded. Imaging None recorded. Medications Name Start Date atorvastatin 10 mg tablet Take 1 tablet every day by oral route in the morning. citalopram 20 mg tablet Take 1 tablet every day by oral route in the morning. gabapentin 600 mg tablet Take 1 tablet 3 times a day by oral route. naproxen 500 mg tablet Take 1 tablet twice a day by oral route as needed. ProAir HFA 90 mcg/actuation aerosol inhaler Inhale 2 puffs every 4 hours by inhalation route as n eeded for 30 days. propranolol 10 mg tablet Take 1 tablet twice a day by oral route. risperidone 1 mg tablet Take 1 tablet twice a day by oral route at bedtime. Medications Administered None recorded. Vitals Height Weight BMI 5 ft 10 in 150 lbs 21.5 kg/m2 Results Lab Results None recorded. Allergies Code Code System Name Reaction Severity Status Onset NKDA Problems Name Status Onset Date Source Major Depressive Disorder Active 07/05/2019 Anxiety Active 07/05/2019 Mild Chronic Obstructive Pulmonary Disease Active 07/04 Prediabetes Active 07/05/2019 Hypercholesterolemia Active 07/06/2019 Chronic Back Pain Active 07/06/2019 Procedures Date Name Performed by Appendectomy Information not avai lable Hernia Repair W/mesh Information not jessica ilable Vaccine List Vaccine Type influenza, injectable, quadrivalent 11/21/2018 Social History Tobacco Smoking Status Heavy Tobacco Smoker (1/2 PPD) Past Encounters 07/05/2019 Advance Directive Discussed with Patient ; Depression Screening; Depression Screening Positive; Nicotine Dependence; Anxiety; Major Depressive Disorder; Prediabetes; Mild Chronic Obstructive Pulmonary Di sease; Hypercholesterolemia; Chronic Richard k Pain; At Risk for Falls Yaa [place], [employer] 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 History of Present Illness Mini Cog Reported By: Patient Functional Ability: Personal/Social/ Draw a cloc k and write in the numbers in the correct place, and set the t [place] to 10 minutes after 11 o'clock was completed correctly? , 3 word recall: Your nurse or doctor will ask you to remember 3 w ords. In 5 minutes, they will ask you to repeat them. Patien t recalled 3 words Tobacco Cessation Reported By: Patient Opioid Use Assessment Reported By: Patient Opioid Use Assessment:: Current Use of Opioids : no use of opioids (no further questions required) Note: I confirm that I received verbal consent from the patient for the virtual visit. Review of Systems Comprehensive General Adult ROS Reported By: Patient Constitutional: Constitutional: no fever, no night sweats, no significant weight gain, no significant weight loss, no exercise intolerance Eyes: Eyes: no dry eyes, no vision change, no irritation; bilateral blindness, cane to ambulate ENMT: Ears: no difficulty hearing, no ear pain. Nose: no frequent nosebleeds, no nose problems , no sinus problems. Mouth/Throat: no sore throat, no bleeding gums, no snoring, no dry mouth, no mouth ulcers, no oral abnorm alities, no teeth problems Cardiovascular: Cardiovascular: no chest colleen n, no arm pain on exertion, no shortness of breath when wal kat, no shortness of breath when lying down, no palpitations, no known heart murmur, no lightheadedness Respiratory: Respiratory: no cough, no wh eezing, no coughing up blood, no sleep apnea, shortness of br eath Gastrointestinal: Gastrointestinal: no abdomin al pain, no nausea, no vomiting, no constipation, normal appe tite, no diarrhea, not vomiting blood, no dyspepsia, no GERD Genitourinary: Genitourinary: no incontinen ce, no difficulty urinating, no hematuria, no increased freq uency Musculoskeletal: Musculoskeletal: no muscle a ches, no muscle weakness, no arthralgias/joint pain, no s welling in the extremities, back pain Integumentary: Skin: no abnormal mole, no j aundice, no rashes, no laceration Neurologic: Neurologic: no loss of consc iousness, no weakness, no numbness, no seizures, no di zziness, no migraines, no headaches, no tremor Psychiatric: Psych: no depression, no sle ep disturbances, feeling safe in a relationship, no alcohol abu se, no anxiety, no hallucinations, no suicidal thoughts Endocrine: Endocrine: no fatigue Hematologic/Lymphatic: Hematologic/Lymphatic no swo llen glands, no bruising, no excessive bleeding Allergic/Immunologic: Allergy/Immunologic: no runn y nose, no sinus pressure, no itching, no hives, no freque nt sneezing Physical Exam None recorded.
--- OUTSIDE RECORDS SUMMARY | 2019-09-23 19:12 | XMS REPORT | Continuity of Care Document ---
:1970 Author Organization [facility] t Address [address] [place] [address] Care Team Providers Name Role Phone LAURA MULLEN Attending Clinician Unavailable LAURA MULLEN Admitting Clinician Unavailable Problems Condition Condition Condition Status Onset Resolution Last Treating Co mments Source Name Details Category Date Date Treatment Clinician Date Hyperchole Hyperchole Problem Active [facility] sterolemia sterolemia 4-15 Fa johan 00:00: Practic 00 e Chronic Chronic Problem Active [facility] back pain Back Pain 4-15 Fami ly 00:00: Practic 00 e Major Major Problem Active [facility] depressive Depressive 4-14 Fa johan disorder Disorder 00:00: Practi c 00 e Anxiety Anxiety Problem Active 2019- [place] 4-14 Family 00:00: Practic 00 e 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 Chronic 4-14 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 Obstructiv 00:00: Pr actic e e 00 e pulmonary Pulmonary disease Disease Prediabete Prediabete Problem Active [facility] s 4-14 Family 00:00: Practic 00 e Chest pain Chest pain Disease [facility] Anxiety Anxiety Disease [facility] Essential Essential Disease Active [facility] hypertensi hypertensi 11-27 Jesi kes - on on 00:[facility] Bipolar 1 Bipolar [address] [facility] disorder disorder 11-27 [facility] - 00[facility] Migraine Migraine Disease [facility] Tobacco Tobacco Disease Active [facility] abuse abuse 11-27 [facility]: [facility] 00 [place] Allergies, Adverse Reactions, Alerts Allergy Allergy Status Severity Reaction(s) Onset Inactive Treating Comm ents Source Name Type Date Date Clinician Hydrocod Drug Active Rash [facility] one-Acet Allergy 11-26 [facility] - aminophe 00:00: Medical n 00 Center Family History Family Member Diagnosis Comments Start Date Stop Date Source Natural father Cancer [facility] Natural father Heart disease [facility] Natural mother No Known Problem [facility] Social History Social Habit Start Date Stop Date Quantity Comments Source History of tobacco Chews Tobacco [facility] use [facility] Sex Assigned At [facility] Cigarettes smoked 2017-11-27 2017-11-27 [facility] - current (pack per 00:00:00 00:00:00 [facility] day) - Reported Cigarette 2017-11-27 2017-11-27 [facility] pack-years 00:00:00 00:00:00 [facility] Smoking Status Start Date Stop Date Source Heavy Tobacco Smoker [facility] Current every day smoker 2017-11-27 00:00:00 [facility] Medications Ordered Filled Start Stop Current Ordering Indication Dosage Frequency Signature Comments Components Source Medication Medication Date Date Medication? Clinician (SIG) Name Name carvedilol 2019- No 12.5mg Take [address] (COREG) 11-27 tablet [facility] - 12.5 MG 00:00: 23:59 (12.5 mg Medic al tablet 00 :00 total) by Center mouth 2 (two) times daily with breakfast and dinner. venlafaxine Yes 150mg QD Take [address] (EFFEXOR-XR 9-06 mg by [facility] - ) 150 MG 24 22:11: mouth Medic al hr capsule 06 daily. [place] gabapentin Yes 300mg Q.25D Take [address] (NEURONTIN) 9-06 mg by [facility] - 300 MG 22:11: mouth 4 Medical capsule 06 (four) Center times daily. risperiDONE Yes 3mg QD Take [address] (RISPERDAL) 11-26 by mouth [facility] - 3 MG tablet 22:11: daily. Medi eloy 06 [place] aspirin 81 Yes 81mg QD Take [address] MG chewable 11-26 by mouth [facility] - tablet 22:11: daily. [address] atorvastati atorvastati No 1 Q1D atorvastat [place] n 10 mg n 10 mg in 10 mg Famil y tablet Take tablet Take tablet Practic 1 tablet 1 tablet Take 1 e every day every day tablet by oral by oral every day route in route in by oral the the route in morning. morning. the morning. citalopram citalopram No 1 Q1D citalopram [place] 20 mg 20 mg 20 mg Family tablet Take tablet Take tablet Practic 1 tablet 1 tablet Take 1 e every day every day tablet by oral by oral every day route in route in by oral the the route in morning. morning. the morning. gabapentin gabapentin No 1 TID gabapentin [place] 600 mg 600 mg 600 mg Family tablet Take tablet Take tablet Practic 1 tablet 3 1 tablet 3 Take 1 e times a day times a day tablet 3 by oral by oral times a route. route. day by oral route. naproxen naproxen No 1 BID naproxen Lea daniel 500 mg 500 mg 500 mg Family tablet Take tablet Take tablet Practic 1 tablet 1 tablet Take 1 e twice a day twice a day tablet by oral by oral twice a route as route as day by needed. needed. oral route as needed. ProAir HFA ProAir HFA No 2puff(s Q4H ProAir HFA [place] 90 90 ) 90 Family mcg/actuati mcg/actuati mcg/actuat Pract[facility] on aerosol on aerosol ion e inhaler inhaler aerosol Inhale 2 Inhale 2 inhaler puffs every puffs every Inhale 2 4 hours by 4 hours by puffs inhalation inhalation every 4 route as route as hours by needed for needed for inhalation 30 days. 30 days. route as needed for 30 days. propranolol propranolol No 1 BID propranolo [place] 10 mg 10 mg l 10 mg Family tablet Take tablet Take tablet Practic 1 tablet 1 tablet Take 1 e twice a day twice a day tablet by oral by oral twice a route. route. day by oral route. risperidone risperidone No 1 BID risperidon [place] 1 mg tablet 1 mg tablet e 1 mg Family Take 1 Take 1 tablet Practic tablet tablet Take 1 e twice a day twice a day tablet by oral by oral twice a route at route at day by bedtime. bedtime. oral route at bedtime. Immunizations Ordered Immunization Filled Immunization Date Status Commen ts Source Name Name influenza, influenza, 2018-11-21 Completed [facility] injectable, injectable, 00:00:00 Practice quadrivalent quadrivalent Vital Signs Vital Name Observation Time Observation Value Comments Source Height 2019-07-05 00:00:00 70 [in_i] [facility] BMI (Body Mass 2019-07-05 00:00:00 21.5 kg/m2 Vill e Family Index) Practice Body Weight 2019-07-05 00:00:00 150 [lb_av] [facility] Procedures Procedure Date / Time Performed Performing Clinician Sour e Appendectomy [facility] Hernia Repair W/mesh [facility] Plan of Care Planned Activity Planned Date Details Comments Source Instructions [facility] Encounters Start End Encounter Admission Attending Care Care Encounter Source Date/Time Date/Time Type Type Clinicians Facility Department ID 2019-07-05 2019-07-05 [facility] [place] - [id number] [facility] 00:00:00 00:00:00 [facility] jonathon o, 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 Results Test Description Test Time Test Comments Results Result Comments Source ISTAT CHEM 8 2018-08-30 11:05:00 Test Item Value Reference Range Interpretation Comme nts ISTATNA (test code = ISTATNA) 142 MMOL/L 137-145 ISTATK (test code = ISTATK) 3.6 MMOL/L 3.6-5.0 ISTATCL (test code = ISTATCL) 106 MMOL/L 98-107 ISTIONCA (test code = 1.22 MMOL/L 1.12-1.32 ISTIONCA) ISTCO2 (test code = ISTCO2) 27 MMOL/L 22-30 ISTATGLU (test code = 91 MG/DL 65-110 ISTATGLU) ISTATBUN (test code = 15.0 MG/DL 7.0-20.0 ISTATBUN) ISTCREA (test code = ISTCREA) 1.1 MG/DL 0.7-1.5 ISTATHCT (test code = 43 %PCV 37.0-52.0 ISTATHCT) ISTATHGB (test code = 14.6 G/DL 12.0-18.0 Notifi ed Nurse/MD of results ISTATHGB) outside of Refe rence Ranges ISTANGAP (test code = 12 MMOL/L Notifi ed Nurse/MD of results ISTANGAP) outside of Refe rence Ranges BMP, BASIC METABOLIC [id number] 15:07:00 Test Item Value Reference Range Interpretation Comments SODIUM (test code = 142 MMOL/L 137-145 NA) K+ (test code = 5.6 MMOL/L 3.5-5.1 H PLEASE NOTE NEW KSERUM) REFERENCE RANGE (S) IN EFFECT EFFECTIVE 010 - NEW ANALYZER (V ITROS 5600) CHLORIDE (test code 109 MMOL/L 98-107 H = CL) CO2 (test code = 29 MMOL/L 22-30 CO2) BUN (test code = 12 MG/DL 9-20 BUN) CREA (test code = 0.9 MG/DL 0.8-1.5 CREA) GLUCOSE (test code 97 MG/DL 70-99 Fasting glucose = GLUCOSE) normal <100 MG/ DL- [employer] recommendation* * CALCIUM (test code 9.4 MG/DL 8.4-10.2 = CABLOOD) GFR (test code = 95 A GFR of >9 0 GFR) mL/min/1.73m2 mL/min/1.73m2 is considered norm al. [id number] 15:07:00 Test Item Value Reference Range Interpretation Comments MG (test code = MG) 2.4 mg/dL 1.6-2.3 H PROTHROMBIN TIME WITH [id number] 14:02:00 Test Item Value Reference Range Interpretation Comments PROTHROMBIN TIME 13.7 SECONDS 12.0-14.6 INR Usual R randal = 2 (test code = PT) to 3 for pr evention of deep vein thrombosis (DVT ) INR (test code = INR) 1.1 [id number] 13:45:00 Test Item Value Reference Range Interpretation Comments WBC (test code = 8.4 K/UL 3.5-10.9 WBC) RBC (test code = 4.41 M/UL 4.3-5.7 RBC) HGB (test code = 13.4 G/DL 13.0-17.9 HGB) HCT (test code = 42.1 % 38-52 HCT) MCV (test code = 95.5 FL 80-98 MCV) MCH (test code = 30.4 PG 28-32 MCH) MCHC (test code = 31.8 G/DL 32.5-36.5 L MCHC) RDW (test code = 13.3 % 11.5-14.5 RDW) PLT (test code = 208 K/UL 150-450 PLT) MPV (test code = 10.8 FL 7.4-10.4 H MPV) MANDIFF (test code = NO MANDIFF) SCAN (test code = NO SCAN) NEUT% (test code = 46.4 % 40-75 NEUT%) LYMPH% (test code = 37.9 % 24-44 LYMPH%) MONO% (test code = 8.9 % 0-13 MONO%) EOS% (test code = 5.7 % 0-4 H EOS%) BASO % (test code = 0.7 % 0-2 BASO%) IG (test code = IG) 0 % 0-1 IG% (test code = 0.4 % 0-1 IG% = Metam yelocytes, IG%) Myelocytes, and Promyelocytes. (Immature neutr ophils not including " bands".) > 3% IG indic ates risk of sepsis NRBC% (test code = 0 /100 WBC NRBC%) ABS NEUT (test code 3.9 K/UL 1.2-7.2 = NEUT) CHEST XR 2 [id number] 12:25:[address] [id number] IMAGING REPORTPatient Name: Yamil DECKER of Service: [id number]: 48 Sex: M Order #: [id number] Room: [facility]: 1970 X-Ray Number: [id number] Record Number: [id number] Hospital Number: [id number] Physician: NELIDA WAITE -Ordering Physician: NELIDA WAITE [...] 12:23:24PET, CARDIAC PERFUSION MULTIPLE STUDIES, REST AND [id number] 15:30:00Reason for exam:- >chest pain, multiple risk factors for CADFINAL REPORT PROCEDURE: Rest/Stress MYOCARDIAL PERFUSION PET with regadenoson\\XA9\\ CPT CODE: 26217 INDICATION: Chest pain, multiple risk factors for CAD HISTORY: Cardiac risk factors: Diabetes, hypertension, tobacco. Other cardiovascular history: Previous [place]. Recent cardiac symptoms: Chest pain. PROTOCOL: Limited low-dose CT imaging was performed for attenuation correction. 40.0 mCi of Rb-82 chloride was injected iv at rest, and gated PET (positron emission tomography) images were obtained. Subsequently, 40.0 mCi of Rb-82 chloride was injected iv at expected peak pharmacologic effect, and gated PET images were obtained. [facility] Pharmacologic stress was by 10-second [...] Normal extracardiac tracer distribution. 6. No previous [facility] study for comparison. NONINVASIVE RISK STRATIFICATION: The above findings are considered low risk (<1% annual mortality rate) based on the following criterion:- Normal or small myocardial perfusion defectat rest or with stress(JACC. 2012;59(9):857-81.) Signed: Alfred Cota Verified Date/Time:11/27/2017 15:30:18 Reading Location: [address] Reading Room HEMOGLOBIN [id number] 09:48:00 Test Item Value Reference Range Interpretation Comments HEMOGLOBIN A1C (BEAKER) (test code = 4.9 % 4.3-6.1 368) BASIC METABOLIC [id number] 06:47:00 Test Item Value Reference Range Interpretation Comments SODIUM (BEAKER) 136 meq/L 136-145 (test code = 381) POTASSIUM (BEAKER) 3.9 meq/L 3.5-5.1 (test code = 379) CHLORIDE (BEAKER) 108 meq/L 98-107 H (test code = 382) CO2 (BEAKER) (test 23 meq/L 22-29 code = 355) BLOOD UREA NITROGEN 12 mg/dL 7-21 (BEAKER) (test code = 354) CREATININE (BEAKER) 0.85 mg/dL 0.57-1.25 (test code = 358) GLUCOSE RANDOM 92 mg/dL 70-105 (BEAKER) (test code = 652) CALCIUM (BEAKER) 8.5 mg/dL 8.4-10.2 (test code = 697) EGFR (BEAKER) (test mL/min/1.73 INSUFFIC IENT CLINICAL code = 1092) sq m DATA TO CALCULA TE ESTIMATED GFR. TROPONIN [id number] 06:44:00 Test Item Value Reference Range Interpretation Comments TROPONIN I (BEAKER) (test code = 397) < ng/mL 0.00-0.03 Troponin I (TnI) levels [...] failure, acidosis, acute neurological disease, and persistent tachyarrhythmia.[id number] 06:43:00 Test Item Value Reference Range Interpretation Comments MAGNESIUM (BEAKER) (test code = 2.7 mg/dL 1.6-2.6 H 627) CBC W/PLT COUNT & AUTO [id number] 06:09:00 Test Item Value Reference Range Interpretation Comments WHITE BLOOD CELL COUNT (BEAKER) 9.5 K/ L 3.5-10.5 (test code = 775) RED BLOOD CELL COUNT (BEAKER) 3.94 M/ L 4.63-6.08 L (test code = 761) HEMOGLOBIN (BEAKER) (test code = 12.3 GM/DL 13.7-17.5 L 410) HEMATOCRIT (BEAKER) (test code = 37.8 % 40.1-51.0 L 411) MEAN CORPUSCULAR VOLUME (BEAKER) 95.9 fL 79.0-92.2 H (test code = 753) MEAN CORPUSCULAR HEMOGLOBIN 31.2 pg 25.7-32.2 (BEAKER) (test code = 751) MEAN CORPUSCULAR HEMOGLOBIN CONC 32.5 GM/DL 32.3-36.5 (BEAKER) (test code = 752) RED CELL DISTRIBUTION WIDTH 13.8 % 11.6-14.4 (BEAKER) (test code = 412) PLATELET COUNT (BEAKER) (test 187 K/CU MM 150-450 code = 756) MEAN PLATELET VOLUME (BEAKER) 10.5 fL 9.4-12.4 (test code = 754) NUCLEATED RED BLOOD CELLS 0 /100 WBC 0-0 (BEAKER) (test code = 413) NEUTROPHILS RELATIVE PERCENT 56 % (BEAKER) (test code = 429) LYMPHOCYTES RELATIVE PERCENT 32 % (BEAKER) (test code = 430) MONOCYTES RELATIVE PERCENT 7 % (BEAKER) (test code = 431) EOSINOPHILS RELATIVE PERCENT 5 % (BEAKER) (test code = 432) BASOPHILS RELATIVE PERCENT 1 % (BEAKER) (test code = 437) NEUTROPHILS ABSOLUTE COUNT 5.28 K/ L 1.78-5.38 (BEAKER) (test code = 670) LYMPHOCYTES ABSOLUTE COUNT 3.03 K/ L 1.32-3.57 (BEAKER) (test code = 414) MONOCYTES ABSOLUTE COUNT (BEAKER) 0.69 K/ L 0.30-0.82 (test code = 415) EOSINOPHILS ABSOLUTE COUNT 0.45 K/ L 0.04-0.54 (BEAKER) (test code = 416) BASOPHILS ABSOLUTE COUNT (BEAKER) 0.06 K/ L 0.01-0.08 (test code = 417) IMMATURE GRANULOCYTES-RELATIVE 0 % 0-1 PERCENT (BEAKER) (test code = 2801) TROPONIN [id number] 01:49:00 Test Item Value Reference Range Interpretation Comments TROPONIN I (BEAKER) (test code = 397) < ng/mL 0.00-0.03 Troponin I (TnI) levels [...] acute neurological disease, and persistent tachyarrhythmia.BASIC METABOLIC [id number] 01:49:00 Test Item Value Reference Range Interpretation Comments SODIUM (BEAKER) 137 meq/L 136-145 (test code = 381) POTASSIUM (BEAKER) 3.7 meq/L 3.5-5.1 (test code = 379) CHLORIDE (BEAKER) 109 meq/L 98-107 H (test code = 382) CO2 (BEAKER) (test 23 meq/L 22-29 code = 355) BLOOD UREA NITROGEN 12 mg/dL 7-21 (BEAKER) (test code = 354) CREATININE (BEAKER) 0.91 mg/dL 0.57-1.25 (test code = 358) GLUCOSE RANDOM 121 mg/dL 70-105 H (BEAKER) (test code = 652) CALCIUM (BEAKER) 8.8 mg/dL 8.4-10.2 (test code = 697) EGFR (BEAKER) (test mL/min/1.73 INSUFFIC IENT CLINICAL code = 1092) sq m DATA TO CALCULA TE ESTIMATED GFR. [id number] 01:42:00 Test Item Value Reference Range Interpretation Comments MAGNESIUM (BEAKER) (test code = 2.2 mg/dL 1.6-2.6 627) LIPID [id number] 01:42:00 Test Item Value Reference Range Interpretation Comments TRIGLYCERIDES (BEAKER) (test code = 130 mg/dL 540) CHOLESTEROL (BEAKER) (test code = 164 mg/dL 631) HDL CHOLESTEROL (BEAKER) (test code 31 mg/dL = 976) LDL CHOLESTEROL CALCULATED (BEAKER) 107 mg/dL (test code = 633) Triglyceride Reference Range: Low Risk <150 Borderline 150-199 High Risk 200-499 Very High Risk >=500Cholesterol Reference Range: Low Risk <200 Borderline 200-239 High Risk >240HDL Cholesterol Reference Range: Low Risk >=60 High Risk <40LDL Cholesterol Reference Range: Optimal <100 Near Optimal 100-129 Borderline 130-159 High 160-189 Very High >=190HEPATIC FUNCTION [id number] 01:42:00 Test Item Value Reference Range Interpretation Comments TOTAL PROTEIN (BEAKER) (test code = 6.1 gm/dL 6.0-8.3 770) ALBUMIN (BEAKER) (test code = 1145) 3.8 g/dL 3.5-5.0 BILIRUBIN TOTAL (BEAKER) (test code 0.2 mg/dL 0.2-1.2 = 377) BILIRUBIN DIRECT (BEAKER) (test 0.1 mg/dL 0.1-0.5 code = 706) ALKALINE PHOSPHATASE (BEAKER) (test 108 U/L 40-150 code = 346) AST (SGOT) (BEAKER) (test code = 9 U/L 5-34 353) ALT (SGPT) (BEAKER) (test code = 8 U/L 6-55 347) CBC W/PLT COUNT & AUTO [id number] 00:59:00 Test Item Value Reference Range Interpretation Comments WHITE BLOOD CELL COUNT (BEAKER) 12.9 K/ L 3.5-10.5 H (test code = 775) RED BLOOD CELL COUNT (BEAKER) 4.07 M/ L 4.63-6.08 L (test code = 761) HEMOGLOBIN (BEAKER) (test code = 12.8 GM/DL 13.7-17.5 L 410) HEMATOCRIT (BEAKER) (test code = 39.0 % 40.1-51.0 L 411) MEAN CORPUSCULAR VOLUME (BEAKER) 95.8 fL 79.0-92.2 H (test code = 753) MEAN CORPUSCULAR HEMOGLOBIN 31.4 pg 25.7-32.2 (BEAKER) (test code = 751) MEAN CORPUSCULAR HEMOGLOBIN CONC 32.8 GM/DL 32.3-36.5 (BEAKER) (test code = 752) RED CELL DISTRIBUTION WIDTH 13.9 % 11.6-14.4 (BEAKER) (test code = 412) PLATELET COUNT (BEAKER) (test 210 K/CU MM 150-450 code = 756) MEAN PLATELET VOLUME (BEAKER) 10.4 fL 9.4-12.4 (test code = 754) NUCLEATED RED BLOOD CELLS 0 /100 WBC 0-0 (BEAKER) (test code = 413) NEUTROPHILS RELATIVE PERCENT 60 % (BEAKER) (test code = 429) LYMPHOCYTES RELATIVE PERCENT 29 % (BEAKER) (test code = 430) MONOCYTES RELATIVE PERCENT 6 % (BEAKER) (test code = 431) EOSINOPHILS RELATIVE PERCENT 4 % (BEAKER) (test code = 432) BASOPHILS RELATIVE PERCENT 0 % (BEAKER) (test code = 437) NEUTROPHILS ABSOLUTE COUNT 7.69 K/ L 1.78-5.38 H (BEAKER) (test code = 670) LYMPHOCYTES ABSOLUTE COUNT 3.75 K/ L 1.32-3.57 H (BEAKER) (test code = 414) MONOCYTES ABSOLUTE COUNT (BEAKER) 0.82 K/ L 0.30-0.82 (test code = 415) EOSINOPHILS ABSOLUTE COUNT 0.57 K/ L 0.04-0.54 H (BEAKER) (test code = 416) BASOPHILS ABSOLUTE COUNT (BEAKER) 0.05 K/ L 0.01-0.08 (test code = 417) IMMATURE GRANULOCYTES-RELATIVE 0 % 0-1 PERCENT (BEAKER) (test code = 2001)
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
--- NOTE | 2019-09-23 21:14 | RAD REPORT ---
EXAM DESCRIPTION: RAD - Foot Left 3 View - 09/23/2019 8:11 pm CLINICAL HISTORY: trauma, foot pain COMPARISON: No comparisons FINDINGS: No fracture, dislocation or periosteal reaction. No acute or destructive bony process. No air or foreign body in the soft tissues. IMPRESSION: Negative left foot examination.
[2019-09-23] MEDS ORDERED: TRAMADOL HCL 50 MG TAB ONE (21:31)
[2019-09-23 21:46] VITALS: BP 125/80; TEMP 98.1; O2SAT 98
== END 2019-09-23 21:49 | disposition home or self-care (01) ==
LOC: ER 19:08
DX: S90.32XA Contusion of left foot, initial encounter (principal); W23.0XXA Caught, crushed, jammed, or pinched between moving objects, initial encounter; Y93.89 Activity, other specified; Y92.9 Unspecified place or not applicable; I10 Essential (primary) hypertension; H54.8 Legal blindness, as defined in USA; Z91.018 Allergy to other foods; Z91.040 Latex allergy status; Z91.048 Other nonmedicinal substance allergy status
CPT/HCPCS: 99283

== ENCOUNTER 2019-10-06 15:29 | Emergency (ER) | payer OTHER ==
--- OUTSIDE RECORDS SUMMARY | 2019-10-06 15:31 | XMS REPORT | Clinical Summary ---
:1970 Author Organization [facility] Address [address] [place] [address] Care Team Providers Name Role Phone Unavailable [...] Not on file Results Not on fileafter 10/05/2018 Advance Directives For more information, please contact:[address] [phone] Code Status Date Activated Date Inactivated Comments Full Code 11/26/2017 11:56 PM 11/27/2017 10:05 PM This code status was determined by: Patient
--- OUTSIDE RECORDS SUMMARY | 2019-10-06 15:32 | XMS REPORT | Continuity of Care Document ---
:[address] [facility] t Address [address] [place] [address] Care Team Providers Name Role Phone LAURA MULLEN Attending Clinician Unavailable LAURA MULLEN Admitting Clinician Unavailable Problems Condition Condition Condition Status Onset Resolution Last Treating Co mments Source Name Details Category Date Date Treatment Clinician Date Hyperchole Hyperchole Problem Active [facility] sterolemia sterolemia 4-15 Fa johan 00:00: Practic 00 e Chronic Chronic Problem Active [facility] back pain Back Pain 4-15 Fami ly 00:00: Practic 00 e Major Major Problem Active [facility] depressive Depressive 4-14 Fa johan disorder Disorder 00:00: Practi c 00 e Anxiety Anxiety Problem Active [facility] 4[facility] Family 00:00: Practic 00 e 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 4-14 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 Obstructiv 00:00: [...] Disease [facility] Migraine [facility] Tobacco Tobacco Disease Active [facility] abuse abuse 11-27 [facility] 00 [place] Allergies, Adverse Reactions, Alerts Allergy Allergy Status Severity Reaction(s) Onset Inactive Treating Comm ents Source Name Type Date Date Clinician Hydrocod Drug Active Rash [facility] one-Acet Allergy 11-26 [facility] - aminophe 00:00: Medical n 00 Center Family History Family Member Diagnosis Comments Start Date Stop Date Source Natural father Cancer [facility] Natural father Heart disease [facility] Natural mother No Known Problem [facility] Social History Social Habit Start Date Stop Date Quantity Comments Source History of tobacco Chews Tobacco [facility] use [facility] Sex Assigned At [facility] Cigarettes smoked 2017-11-27 2017-11-27 [facility] - current (pack per 00:00:00 00:00:00 [facility] Center day) - Reported Cigarette 2017-11-27 2017-11-27 [facility] - pack-years 00:00:00 00:00:00 [facility] Smoking Status Start Date Stop Date Source Heavy Tobacco [facility] day smoker 2017-11-27 00:00:00 [facility] Medications Ordered Filled Start Stop Current Ordering [...] mouth Medic al hr capsule 06 daily. [place] gabapentin Yes 300mg Q.25D Take [address] (NEURONTIN) 9-06 mg by [facility] - 300 MG 22:11: mouth 4 Medical capsule 06 (four) Center times daily. risperiDONE Yes 3mg QD Take [address] (RISPERDAL) 11-26 by mouth [facility] - 3 MG tablet 22:11: daily. Medi eloy 06 [place] aspirin 81 2018-0 Yes 81mg QD Take [address] MG chewable 11-26 by mouth [facility] - tablet 22:11: daily. [address] atorvastati atorvastati No 1 Q1D atorvastat [facility] n 10 mg n 10 mg in 10 mg Famil y tablet Take tablet Take tablet Practic 1 tablet 1 tablet Take 1 e every day every day tablet by oral by oral every day route in route in by oral the the route in morning. morning. the morning. citalopram citalopram No 1 Q1D citalopram [facility] 20 mg 20 mg 20 mg Family tablet Take tablet Take tablet Practic 1 tablet 1 tablet Take 1 e every day every day tablet by oral by oral every day route in route in by oral the the route in morning. morning. the morning. gabapentin gabapentin No 1 TID gabapentin [facility] 600 mg 600 mg 600 mg Family [...] Source Name Name influenza, influenza, 2018-11-21 Completed [facility] injectable, injectable, 00:00:00 Practice quadrivalent quadrivalent Vital Signs Vital Name Observation Time Observation Value Comments Source Height 2019-07-05 00:00:00 70 [in_i] [facility] BMI (Body Mass 2019-07-05 00:00:00 21.5 kg/m2 [facility] Body Weight 2019-07-05 00:00:00 150 [lb_av] [facility] Procedures Procedure Date / Time Performed Performing Clinician Sourc e Appendectomy [facility] Hernia Repair W/mesh [facility] Plan of Care Planned Activity Planned Date Details Comments Source Instructions [facility] Encounters Start End Encounter Admission Attending Care Care Encounter Source Date/Time Date/Time Type Type Clinicians Facility Department ID 2019-07-05 2019-07-05 [facility]aa [facility] [place] - [id number] [facility] 00:00:00 00:00:00 [facility] jonathon o, FIRE SAFETY DIRECTOR: Medical - Practi c [address] [email or web address] [facility], [address] [address], [place] [address] , Ph. Results Test Description Test Time [...] of Refe rence Ranges BMP, BASIC METABOLIC [id number] 15:07:00 Test Item Value Reference Range Interpretation [...] glucose = GLUCOSE) normal <100 MG/ DL- [employer] recommendation* * CALCIUM (test code 9.4 MG/DL 8.4-10.2 = CABLOOD) GFR (test code = 95 A GFR of >9 0 GFR) mL/min/1.73m2 mL/min/1.73m2 is considered norm al. [id number] 15:07:00 Test Item Value Reference Range Interpretation Comments MG (test code = MG) 2.4 mg/dL 1.6-2.3 H PROTHROMBIN TIME WITH [id number] 14:02:00 Test Item Value Reference Range Interpretation Comments PROTHROMBIN TIME 13.7 SECONDS 12.0-14.6 INR Usual R randal = 2 (test code = PT) to 3 for pr evention of deep vein thrombosis (DVT ) INR (test code = INR) 1.1 [id number] 13:45:00 Test Item Value Reference Range Interpretation [...] K/UL 1.2-7.2 = NEUT) CHEST XR 2 [id number] 12:25:[address] [id number] IMAGING REPORTPatient Name: Yamil DECKER of Service: [id number]: [id number] Sex: M Order #: [id number] Room: [facility]: 1970 X-Ray Number: [id number] Record Number: [id number] Hospital Number: [id number] Physician: NELIDA WAITE -Ordering Physician: NELIDA WAITE [...] 12:23:24PET, CARDIAC PERFUSION MULTIPLE STUDIES, REST AND [id number] 15:30:00Reason for exam:- >chest pain, multiple risk factors for CADFINAL REPORT PROCEDURE: Rest/Stress MYOCARDIAL PERFUSION PET with regadenoson\\XA9\\ CPT CODE: 23214 INDICATION: Chest pain, multiple risk factors for CAD HISTORY: Cardiac risk factors: Diabetes, hypertension, tobacco. Other cardiovascular history: Previous [place]. Recent cardiac symptoms: Chest pain. PROTOCOL: Limited low-dose CT imaging was performed for attenuation correction. 40.0 mCi of Rb-82 chloride was injected iv at rest, and gated PET (positron emission tomography) images were obtained. Subsequently, 40.0 mCi of Rb-82 chloride was injected iv at expected peak pharmacologic effect, and gated PET images were obtained. PRELIMINARY STRESS TEST DATA FROMNONINVASIVE CARDIOLOGY: Pharmacologic stress was by 10-second iv [...] tracer distribution. 6. No previous [facility] study for comparison. NONINVASIVE RISK STRATIFICATION: The above findings are considered low risk (<1% annual mortality rate) based on the following criterion:- Normal or small myocardial perfusion defectat rest or with stress(JACC. 2012;59(9):437-81.) Signed: Alfred Cota Verified Date/Time:11/27/2017 15:30:18 Reading Location: [address] Reading Room HEMOGLOBIN [id number] 09:48:00 Test Item Value Reference Range Interpretation Comments HEMOGLOBIN A1C (BEAKER) (test code = 4.9 % 4.3-6.1 368) BASIC METABOLIC [id number] 06:47:00 Test Item Value Reference Range Interpretation [...] DATA TO CALCULA TE ESTIMATED GFR. TROPONIN [id number] 06:44:00 Test Item Value Reference Range Interpretation [...] failure, acidosis, acute neurological disease, and persistent tachyarrhythmia.[id number] 06:43:00 Test Item Value Reference Range Interpretation Comments MAGNESIUM (BEAKER) (test code = 2.7 mg/dL 1.6-2.6 H 627) CBC W/PLT COUNT & AUTO [id number] 06:09:00 Test Item Value Reference Range Interpretation [...] PERCENT (BEAKER) (test code = 2801) TROPONIN [id number] 01:49:00 Test Item Value Reference Range Interpretation [...] acute neurological disease, and persistent tachyarrhythmia.BASIC METABOLIC [id number] 01:49:00 Test Item Value Reference Range Interpretation [...] m DATA TO CALCULA TE ESTIMATED GFR. [id number] 01:42:00 Test Item Value Reference Range Interpretation Comments MAGNESIUM (BEAKER) (test code = 2.2 mg/dL 1.6-2.6 627) LIPID [id number] 01:42:00 Test Item Value Reference Range Interpretation [...] 130-159 High 160-189 Very High >=190HEPATIC FUNCTION [id number] 01:42:00 Test Item Value Reference Range Interpretation [...] 6-55 347) CBC W/PLT COUNT & AUTO [id number] 00:59:00 Test Item Value Reference Range Interpretation [...] % 0-1 PERCENT (BEAKER) (test code = 2821)
[2019-10-06] MEDS ORDERED: MORPHINE 4 MG/ML SYR ONE ×2 (16:02→18:09)
[2019-10-06 16:16] LABS: Absolute Lymphocytes (CBC) 1.1 K/uL (0.7-4.9); Basophils % 0.5 % (0-1.3); Hematocrit 40.3 % (39.6-49.0); Lymphocytes % 15.8 % (15.3-44.8); MPV 8.5 fL (7.6-11.3); RBC Red Blood Cell Count 4.36 M/uL (4.33-5.43)
[2019-10-06 16:28] LABS: ALT/SGPT 22 U/L (12-78); AST/SGOT 12 U/L (15-37); Albumin 3.6 g/dL (3.4-5.0); Alkaline Phosphatase 113 U/L (45-117); BUN Blood Urea Nitrogen 14 mg/dL (7-18); Bicarbonate 25 mmol/L (21-32); Bilirubin Direct < 0.1 mg/dL (0-0.2); Bilirubin Total 0.2 mg/dL (0.2-1.0); Glucose Level 104 mg/dL (74-106); Lipase 83 U/L (73-393); Potassium 3.6 mmol/L (3.5-5.1); Sodium Level 139 mmol/L (136-145)
--- NOTE | 2019-10-06 17:42 | RAD REPORT ---
EXAM DESCRIPTION: CT - Abdomen Pelvis W Contrast - 10/06/2019 5:27 pm CLINICAL HISTORY: Abdominal pain COMPARISON: 2017 TECHNIQUE: Computed axial tomography of the abdomen pelvis was obtained. 100 cc Isovue-300 was admin istered intravenously. Oral contrast was not requested which limits evaluation of bowel. All CT scans are performed using dose optimization technique as appropriate and may include automated exposure control or mA/KV adjustment according to patient size. FINDINGS: Hepatic and splenic granulomata are present. The pancreas,, adrenals and right kidney unremarkable Several small nonobstructing left renal calculi. Small diverticulum stems from the posterior gastric fundus. There is no evidence of diverticulitis. Fluid within nondilated small bowel IMPRESSION: Small nonobstructing left renal calculi Fluid in nondilated small bowel may indicate an enteritis
[2019-10-06 17:46] LABS: Urine Blood NEGATIVE (NEG); Urine Glucose NEGATIVE (NEG); Urine Protein NEGATIVE (NEG)
[2019-10-06] MEDS ORDERED: ACETAMINOPHEN 500 MG TAB ONE (18:40)
--- NOTE | 2019-10-06 18:55 | RAD REPORT ---
EXAM DESCRIPTION: US - Scrotum Testicles - 10/06/2019 5:19 pm CLINICAL HISTORY: Testicular pain COMPARISON: None FINDINGS: Right testicle measures 3.4 x 1.2 x 2.9 centimeters. Echotexture is homogeneous. Normal bl ood flow Left testicle measures 4.2 x 2.3 x 2.8 centimeters. Echotexture is homogeneous. Normal blood flow The epididymides are normal in size and echotexture. Normal blood flow is seen. 4 mm right spermatocele IMPRESSION: 4 millimeter right spermatocele
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
[2019-10-06 19:29] VITALS: O2SAT 98
[2019-10-06 19:30] VITALS: BP 121/80; TEMP 99.1
== END 2019-10-06 19:15 | disposition home or self-care (01) ==
LOC: ER 15:29
DX: N43.41 Spermatocele of epididymis, single (principal); L04.1 Acute lymphadenitis of trunk; I10 Essential (primary) hypertension; F17.210 Nicotine dependence, cigarettes, uncomplicated; Z91.018 Allergy to other foods; Z91.040 Latex allergy status; Z91.048 Other nonmedicinal substance allergy status
CPT/HCPCS: 85025; 80048; 36415; 80076; 81003; 83690; 74177; 76870; 96374; 99284; Q9967

== ENCOUNTER 2019-10-07 18:10 | Emergency (ER) | payer OTHER ==
--- OUTSIDE RECORDS SUMMARY | 2019-10-07 18:13 | XMS REPORT | Clinical Summary ---
:1970 Author Organization [facility] Address [address] [place] [address] Care Team Providers Name Role Phone Unavailable [...] Not on file Results Not on fileafter 10/06/2018 Advance Directives For more information, please contact:[address] [phone] Code Status Date Activated Date Inactivated Comments Full Code 11/26/2017 11:56 PM 11/27/2017 10:05 PM This code status was determined by: Patient
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
[2019-10-07] MEDS ORDERED: NA CHLORIDE 0.9% 2,000 ML ONE (18:55)
[2019-10-07] MEDS ORDERED: ACETAMINOPHEN 500 MG TAB ONE (18:55)
--- NOTE | 2019-10-07 19:25 | RAD REPORT ---
EXAM DESCRIPTION: RAD - Chest Single View - 10/07/2019 6:59 pm CLINICAL HISTORY: FEVER Chest pain. COMPARISON: Chest Single View dated 04/22/2019 FINDINGS: Portable technique limits examination quality. Interstitial lung markings are mildly prominent bilaterally compatible with a mild interstitial pneum onitis. No focal consolidation typical of bacterial pneumonia is seen. The heart is normal in size. N o displaced fractures.
[2019-10-07 19:36] LABS: Absolute Lymphocytes (CBC) 0.5 K/uL (0.7-4.9); Basophils % 0.3 % (0-1.3); Hematocrit 42.6 % (39.6-49.0); Lymphocytes % 9.5 % (15.3-44.8); MPV 8.3 fL (7.6-11.3); RBC Red Blood Cell Count 4.65 M/uL (4.33-5.43)
[2019-10-07 19:47] LABS: Protime INR 1.1
[2019-10-07 19:54] LABS: Urine Bacteria <20 /HPF (NONE SEEN); Urine Culture Reflex Order NOT NEEDED; Urine Mucus 2+ /HPF (NONE SEEN); Urine RBC <5 /HPF (NONE SEEN)
[2019-10-07 19:59] LABS: Blood Morphology Comment NOT SEEN (NOT SEEN); Platelet Estimate ADEQ; Urine White Blood Cell Casts OK
[2019-10-07 20:09] LABS: ALT/SGPT 25 U/L (12-78); AST/SGOT 21 U/L (15-37); Albumin 3.4 g/dL (3.4-5.0); Alkaline Phosphatase 110 U/L (45-117); BUN Blood Urea Nitrogen 13 mg/dL (7-18); Bicarbonate 24 mmol/L (21-32); Bilirubin Direct < 0.1 mg/dL (0-0.2); Bilirubin Total 0.2 mg/dL (0.2-1.0); Creatine Phosphokinase 101 U/L (39-308); Glucose Level 103 mg/dL (74-106); Potassium 3.8 mmol/L (3.5-5.1); Protein, Total 6.9 g/dL (6.4-8.2); Sodium Level 135 mmol/L (136-145); Troponin (Emerg Dept Use Only) < 0.02 ng/mL (0.0-0.045)
--- NOTE | 2019-10-07 20:26 | RAD REPORT ---
EXAM DESCRIPTION: CT - Chest For Pe Angio - 10/07/2019 8:17 pm CLINICAL HISTORY: Chest pain. DYSPNEA COMPARISON: No comparisons TECHNIQUE: CT angiogram of the pulmonary arteries was performed with MIP. All CT scans are performed using dose optimization technique as appropriate and may include automated exposure control or mA/KV adjustment according to patient size. FINDINGS: No evidence of pulmonary thromboembolism. No acute aortic finding demonstrated. The lungs are clear. No significant pericardial or pleural fluid. No concerning bony finding. IMPRESSION: No evidence of pulmonary thromboembolism. No acute lung findings.
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
[2019-10-07 21:47] VITALS: BP 141/87; TEMP 99.9; O2SAT 94
[2019-10-07 21:50] LABS: Urine Blood NEGATIVE (NEG); Urine Glucose NEGATIVE (NEG); Urine Protein 2+ (NEG); Urine Specific Gravity >1.030 (1.005-1.030); Urine pH 5.5 (5.0-7.0)
== END 2019-10-07 21:38 | disposition left against medical advice (07) ==
LOC: ER 18:10
DX: B34.9 Viral infection, unspecified (principal); I10 Essential (primary) hypertension; F17.210 Nicotine dependence, cigarettes, uncomplicated; Z91.018 Allergy to other foods; Z91.040 Latex allergy status; Z91.048 Other nonmedicinal substance allergy status
CPT/HCPCS: 93005; 87040 ×2; 85025; 80048; 36415; 85384; 82550; 85610; 85379; 80076; 83605; 85730; 84484; 84145; 86140; 71275; 71045; 96374; 99284; Q9967; J7030; 81003; 81015

== ENCOUNTER 2019-12-13 12:49 | Emergency (ER) | payer OTHER ==
--- OUTSIDE RECORDS SUMMARY | 2019-12-13 12:51 | XMS REPORT | Clinical Summary ---
:[address] [facility] Address [address] [place] [address] Care Team Providers Name Role Phone Unavailable Primary Care Provider Unavailable Allergies Active Allergy Reactions Severity Noted Date Comments Hydrocodone-Acetaminophen Rash High 11/26/2017 Medications Medication Sig Dispensed Refills Start Date End Date Status venlafaxine Take 150 mg by 0 Act frank (EFFEXOR-XR) 150 MG 24 mouth daily. hr capsule gabapentin (NEURONTIN) Take 300 mg by 0 Active 300 MG capsule mouth 4 (four) times daily. risperiDONE (RISPERDAL) Take 3 mg by 0 Active 3 MG tablet mouth daily. aspirin 81 MG chewable Take 81 mg by 0 Active tablet mouth daily. Active Problems Problem Noted Date Chest [...] Not on file Results Not on fileafter 12/12/2018 Advance Directives For more information, please contact:[facility] [place] [address] [phone] Code Status Date Activated Date Inactivated Comments Full Code 11/26/2017 11:56 PM 11/27/2017 10:05 PM This code status was determined by: Patient
--- OUTSIDE RECORDS SUMMARY | 2019-12-13 12:52 | XMS REPORT | Summary of Care ---
:1970 Author Organization [facility] Address [address] [place] [address] Care Team Providers Name Role Phone Wily Mae MD Primary Care Provider Reason for Visit Reason Comments Pre-op Clearance Encounter Details Date Type Department Care Team Description 11/22/2019 Telephone [facility] Cardiology- Audi Hinojosa MD Pre-op Clearance [address] [place] [address] [place] [address] [phone] Allergies Active Allergy Reactions Severity Noted Date Comments Adhesive Unknown - See comments 04/15/2019 Tape-Silicones Hydrocodone-Acetaminop Dizziness, Rash High 11/26/2017 Ot her reaction(s): hen Other (see comm ents) Latex Unknown - See comments 04/15/2019 documented as of this encounter (statuses as of 11/22/2019) Medications Medication Sig Dispensed Refills Start Date End Date Status venlafaxine XR 150 mg 24 Take 150 mg by 0 Active hr capsule mouth daily. nitroglycerin 0.[address] 0.4 mg 0 Active sublingual tablet under the tongue every 5 (five) minutes as needed for Chest pain. aspirin 81 mg EC tablet Take 81 mg by 0 Active mouth. naproxen 500 mg tablet TK 1 T PO BID 0 04/17/2019 Active WF risperiDONE 4 mg tablet Take 4 mg by 0 Active mouth every evening. propranoloL 10 mg tablet Take 10 mg by 0 Active mouth 2 (two) times daily. atorvastatin 10 mg Take 10 mg by 0 Active tablet mouth at bedtime. cyclobenzaprine 5 mg Take 5 mg by 0 Active tablet mouth 3 (three) times daily. documented as of this encounter (statuses as of 11/22/2019) Active Problems Not on filedocumented as of this encounter (statuses as of 11/22/2019) Social History Tobacco Use Types Packs/Day Years Used Date Current Every Day Smoker Smokeless Tobacco: Never Used Sex Assigned at Date Recorded Not on file COVID-19 Exposure Response Date Recorded In the last month, have you been in contact with No / Unsure 11/21/2019 10:25 AM CDT someone who was confirmed or suspected to have Coronavirus / COVID-19? documented as of this encounter Last Filed Vital Signs Not on filedocumented in this encounter Miscellaneous Notes Telephone Encounter - Elizabeth Norwood RN - 11/22/2019 11:05 AM CDTFaxed over Pre-op clearance to [phone] per patient. Received fax confirmation. Informed patient. documented in this encounter Plan of Treatment Health Maintenance Due Date Last Done Comments PNEUMOCOCCAL 0-64 YEARS COMBINED SERIES (1 of 1 - 1975 PPSV23) DTaP,Tdap,and Td Vaccines (1 - Tdap) 02/18/1988 COLON CANCER SCREENING ANNUAL FIT/FOBT 2019 COLON CANCER SCREENING FIT DNA EVERY 3 YEARS 2019 COLON CANCER SCREENING SIGMOIDOSCOPY EVERY 5 YEARS 2019 COLONOSCOPY 2019 Colorectal Cancer Screening 2019 Zoster Recombinant Vaccine (SHINGRIX) (1 of 2) 2019 INFLUENZA VACCINE (#1) 2019 Depression Screening 04/21/2020 04/21/2019 documented as of this encounter Results Not on filedocumented in this encounter Insurance Payer Benefit Plan Subscriber ID Effective Phone Address Typ e / Group Dates [employer] WELL[employer]ARE [id number] 2019-Pre Medica re Adv [place] PL[place] PL[place] sent HMO CLASSIC/VALUE [place] MEDICAID OF [id number] 2019-Pres [phone] Med[address] caid [place] [id number] [place] [address] documented as of this encounter Advance Directives Name Relationship Healthcare Agent Communication Relationship Katie Tabares Spouse Health Care Agent [email or web address]
--- OUTSIDE RECORDS SUMMARY | 2019-12-13 12:52 | XMS REPORT | Continuity of Care Document ---
:1970 Author Organization [facility] Address [address] [place] [address] Care Team Providers Name Role Phone MD FLASH Primary Care Physician Allergies, Adverse Reactions, Alerts Allergen Type Severity Reaction Last Updated Verified Status Adhesive Allergy Severe HIVES March No Active agent 2019 Latex Allergy Severe HIVES March No Active ([id number]) 2019 Medications Medication Status Dose Units Route Sig Qty Days Start End Instruct ions Date Date Albuterol Active 2 RESPIRATORY Every 4-6 1 30 (INHALATION) Hours As Needed as needed for Wheezing / Shortness Of Breath Aspirin Active 1 ORAL Once 30 30 Daily Atorvastatin Active 10 ORAL Once 30 30 Calcium Daily At Bedtime Citalopram * Active 20 ORAL Daily Gabapentin Active 600 ORAL Three Times A Day Propranolol Active 10 ORAL Twice A Hcl Day Risperidone Active 4 ORAL Once Daily At Bedtime Venlafaxine Active 1 ORAL Once Hcl Daily Problems Active Problems Medical Problem Onset Date Status Sprain of ankle Active Inactive/Resolved Problems Medical Problem Onset Date Status Sprain of knee Resolved Contusion of knee Resolved Right ankle sprain Resolved Internal derangement of right Resolved knee Post-op pain Resolved Procedures No procedure information available. 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 Advance Directives Advance Directive Response Recorded Date/Time Advance Directive on File No November 23, 2019 6:53pm Chief Complaint and Reason for Visit Chief Complaint HEENTL Reason for Visit [id number] Encounters Encounter Location(s) Arrival/Admit Date Discharge/Depart Date Provider(s) Departed [place] November 22, November 23, 2019 STORMY MITCHELL Emergency Room [facility] 2019 6:44pm 8:38pm [facility] Registered [place] November 22, Surgical Day [facility] 2019 6:25am [facility] Assessments No Assessments Information Available Functional Status No Functional Status information available Goals Goals may be documented in an alternate section. Immunizations No Immunization Information Available Mental Status No Mental Status Information Available Medical Equipment No Medical Equipment Information available Insurance Providers Guarantor Abbie Tabares Address [address] [facility] [address] Contact Info. Home Phone: Payer Policy Id Coverage Id Subscriber's Subscriber Id Effective E xpiration Name Date Date [employer] [id number] Abbie Tabares [id number] Medicaid [id number] Abbie Tabares [id number] Plan of Treatment Follow up with Surgeon in AM as discussed Continue current medications Prescription for Tylenol #3, 4 tablets Future Tests Future scheduled test information is unavailable Pending Tests Pending diagnostic test information is unavailable Future Visits Future appointment information is unavailable Referrals to Other Providers Reason for Referral Start Provider Provider Contact Provider Address Referral Date Information YESSY VIDALES Work Phone: [address] MD [address] [facility] [phone] Future Procedures Future procedure information is unavailable Future Medications Future medication information is unavailable Patient Instructions Cataract Surgery, Care After Social History Smoking Status Status Date of Observation Smokes tobacco daily (finding) November 23, 2019 6:5 3pm Observation Status Observation Response Date of Response Hx Alcohol Use No November 16, 2019 10 :46am Assigned Sex Male Vital Signs Vital Reading Result Collection Date/Time Weight 150 [lb_av] November 23, 2019 6:53pm BMI (Body Mass Index) 21.5 kg/m2 November 22 0 6:53pm
--- OUTSIDE RECORDS SUMMARY | 2019-12-13 12:52 | XMS REPORT | Summary of Care ---
:1970 Author Organization [facility] - Health Address [address] [place] [address] Care Team Providers Name Role Phone Wily Mae MD Primary Care Provider Encounter Details Date Type Department Care Team Description 11/18/2019 Orders Only [facility] Doctor Unassigned, No [address] [facility] Name [place] [phone] [place] [phone] Allergies Active Allergy Reactions Severity Noted Date Comments Adhesive Unknown - See comments 04/15/2019 Tape-Silicones Hydrocodone-Acetaminop Dizziness, Rash High 11/26/2017 Ot her reaction(s): hen Other (see comm ents) Latex Unknown - See comments 04/15/2019 documented as of this encounter (statuses as of 11/23/2019) Medications Medication Sig Dispensed Refills Start Date End Date Status venlafaxine XR 150 mg Take 150 mg by 0 Active 24 hr capsule mouth daily. nitroglycerin 0.[address] 0.4 mg 0 Active sublingual tablet under the tongue every 5 (five) minutes as needed for Chest pain. aspirin 81 mg EC tablet Take 81 mg by 0 Active mouth. naproxen 500 mg tablet TK 1 T PO BID WF 0 0 Active risperiDONE 4 mg tablet Take 4 mg by 0 Active mouth every evening. documented as of this encounter (statuses as of 11/23/2019) Active Problems Not on filedocumented as of this encounter (statuses as of 11/23/2019) Social History Tobacco Use Types Packs/Day Years [...] filedocumented in this encounter Plan of Treatment Health [...] 04/21/2020 04/21/2019 documented as of this encounter Procedures Procedure Name Priority Date/Time Associated Diagnosis Comme nts 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 - ADC Routine 11/18/2019 12:01 AM CDT REFERRAL documented in this encounter Results Not on filedocumented in this encounter Insurance Payer Benefit Plan Subscriber ID Effective Phone Address Typ e / Group Dates [employer] [id number] 2019-Pre Medica re Adv [place] sent HMO CLASSIC/VALUE [facility] MEDICAID OF [id number] 2019-Pres [phone] Medi caid [place] ent [id number] [place] [address] documented as of this encounter Advance Directives Name Relationship Healthcare Agent Communication Relationship Katie Tabares Spouse Health Care Agent [email or web address]
--- OUTSIDE RECORDS SUMMARY | 2019-12-13 12:52 | XMS REPORT | Summary of Care ---
:1970 Author Organization [facility] Address [address] [place] [address] Care Team Providers Name Role Phone Wily Mae MD Primary Care Provider Reason for Visit Reason Comments New Patient Cataract Sx Clearance Ekg Done today in office (Routine) Status Reason Specialty Diagnoses / Procedures Referred By Misty santos Referred To Contact Closed Cardiology Diagnoses Essential (primary) hypertension Prediabetes Karen Mae Procedures CONSULT/REFERRAL CARDIOLOGY MD Wily [address] [place] [phone] Phone: Encounter Details Date Type Department Care Team Description 11/21/2019 Office Visit [facility] Shefali Hinojosa M D Cataract of both eyes, unspecified catar act type (Primary Dx); Cardiology- [address] Preop cardiovascular exam; [address] [place] [address] Essential hypertension; [facility], [address] Hyperlipidemia, unspecified hyperlipidem ia type [place], [place] [phone] Allergies Active Allergy Reactions Severity Noted Date Comments Adhesive Unknown - See comments 04/15/2019 Tape-Silicones Hydrocodone-Acetaminop Dizziness, Rash High 11/26/2017 Ot her reaction(s): hen Other (see comm ents) Latex Unknown - See comments 04/15/2019 documented as of this encounter (statuses as of 11/21/2019) Medications Medication Sig Dispensed Refills Start Date End Date Status venlafaxine XR 150 Take 150 mg 0 Active mg 24 hr capsule by mouth daily. nitroglycerin 0.[address] 0.4 mg 0 Active sublingual tablet under the tongue every 5 (five) minutes as needed for Chest pain. aspirin 81 mg EC Take 81 mg 0 Ac tive tablet by mouth. naproxen 500 mg TK 1 T PO 0 04/17/2019 Act frank tablet BID WF risperiDONE 4 mg Take 4 mg by 0 Active tablet mouth every evening. propranoloL 10 mg Take 10 mg 0 A ctive tablet by mouth 2 (two) times daily. atorvastatin 10 mg Take 10 mg 0 Active tablet by mouth at bedtime. cyclobenzaprine 5 mg Take 5 mg by 0 Active tablet mouth 3 (three) times daily. gabapentin 100 mg Take 300 mg 0 Discontinued capsule by mouth 4 0 (Dose (four) times adjustm ent) daily. carvedilol 12.5 mg Take 12.5 mg 0 11/21/19 2 Discontinued tablet by mouth 2 0 (Disconti nued by (two) times another daily. clinician) RISPERIDONE ORAL Take 3 mg by 0 Discontinued mouth daily. 0 (Duplic ate) rosuvastatin 10 mg Take 10 mg 0 Discontinued tablet by mouth. 0 (Discontin ued by another clinician) traMADol 50 mg TK 1 T PO Q 0 04/17/2019 D iscontinued tablet 8 H PRN 0 (Therapy completed) carvediloL 12.5 mg Take 1 0 D iscontinued tablet tablet by 0 (Duplicate ) mouth. gabapentin 300 mg Take 300 mg 0 Discontinued capsule by mouth. 0 (Duplicate ) venlafaxine XR 150 Take 150 mg 0 Discontinued mg 24 hr capsule by mouth. 0 (Du plicate) documented as of this encounter (statuses as of 11/21/2019) Active Problems Not on filedocumented as of this encounter (statuses as of 11/21/2019) Social History Tobacco Use Types Packs/Day Years [...] Sign Reading Time Taken Comments Blood Pressure 117/74 11/21/2019 10:33 AM CDT Pulse 57 11/21/2019 10:33 AM CDT Temperature - - Respiratory Rate 19 11/21/2019 10:33 AM CDT Oxygen Saturation 96% 11/21/2019 10:33 AM CDT Inhaled Oxygen Concentration - - Weight 68.1 kg (150 lb 1.6 oz) 11/21/2019 10:33 AM CDT Height 177.8 cm (5' 10") 11/21/2019 10:33 AM CDT Body Mass Index 21.54 11/21/2019 10:33 AM CDT documented in this encounter Progress Notes Shefali Hinojosa MD - 11/21/2019 10:40 AM CDT CARDIOLOGY CLINIC NOTE 11/21/2019 Reason for Referral/Presenting Complaint: preop cardiac evaluation PCP: Karen Mae Referring: Dr. Dickersno History of Present Illness: Jose Tabares is a 49 years old male with history of HTN and HLD. He is going to have cataractsurgery in 2 days. Here for preop cardiac evaluation. Had ECHO and nuclear stress test for the past 1-2 years. No ischemia seen. Denies exertional chest pain. Current smoker. Cardiovascular testing: EK11/18/2019 Normal sinus rhythm. Borderline RAD. Probable anteroseptal infarct. Review of Systems: General: (-) fever, (-) chills, (-) weight change, (-) dizziness, (-) fatigue Skin: (-) rash HEENT: (-) headache, (-) change in vision Neck: (-) difficulty swallowing Heme: negative Resp: (-) cough, (-) dyspnea on exertion Cardio: (-) chest pain, (-) palpitations, (-) syncope GI: (-) vomiting, (-) diarrhea : negative Endo: (-) diabetes, (-) thyroid disease Neuro: (-) numbness, (-) tingling, (-) weakness Back: (-) pain KAYY: (-) muscle pain, (-) claudication Psych: (-) anxiety, (-) depression Past Medical History: Past Medical History: Diagnosis Date Bipolar 1 disorder Depression HTN (hypertension) Migraines Current Medications: Current Outpatient Medications Medication Sig Dispense Refill atorvastatin 10 mg tablet Take 10 mg by mouth at bedtime. cyclobenzaprine 5 mg tablet Take 5 mg by mouth 3 (three) times daily. propranoloL 10 mg tablet Take 10 mg by mouth 2 (two) times daily. aspirin 81 mg EC tablet Take 81 mg by mouth. risperiDONE 4 mg tablet Take 4 mg by mouth every evening. venlafaxine XR 150 mg 24 hr capsule Take 150 mg by mouth daily. naproxen 500 mg tablet TK 1 T PO BID WF nitroglycerin 0.[address] 0.4 mg under the tongue every 5 (five) minutes as needed for Chest pain. No current facility-administered medications for this visit. Social History: Social History Socioeconomic History Marital status: Spouse name: Not on file Number of children: Not on file Years of education: Not on file Highest education level: Not on file Occupational History Not on file Social Needs Financial resource strain: Not on file Food insecurity Worry: Not on file Inability: Not on file Transportation needs Medical: Not on file Non-medical: Not on file Tobacco Use Smoking status: Current Every Day Smoker Smokeless tobacco: Never Used Substance and Sexual Activity Alcohol use: Not on file Drug use: Not on file Sexual activity: Not on file Lifestyle Physical activity Days per week: Not on file Minutes per session: Not on file Stress: Not on file Relationships Social connections Talks on phone: Not on file Gets together: Not on file Attends yarsanism service: Not on file Active member of club or organization: Not on file Attends meetings of clubs or organizations: Not on file Relationship status: Not on file Intimate partner violence Fear of current or ex partner: Not on file Emotionally abused: Not on file Physically abused: Not on file Forced sexual activity: Not on file Other Topics Concern Not on file Social History Narrative Not on file Family History Family History Problem Relation Age of Onset Heart Father pacemaker Physical Examination: BP 117/74 (BP Location: Left arm, Patient Position: Sitting, BP CUFF SIZE: Adult Small) | Pulse 57| Resp 19 | Ht 5' 10" (1.778 m) | Wt 150 lb 1.6 oz (68.1 kg) | SpO2 96% | BMI 21.54 kg/m Constitutional: alert and oriented x 3 (person, place and date/time); no apparent distress ENT: normocephalic atraumatic, supple, no lymphadenopathy, no bruits, no JVD Lungs: clear to auscultation bilaterally Cardiovascular: S1, S2 normal, regular; no murmurs, rubs or gallops GI: soft; non-tender; non-distended; normoactive bowel sounds : not examined Musculoskeletal: Extremities: no clubbing, cyanosis, or edema Skin: no rashes Neuro: no focal deficits Assessment/Plan: ICD-10-CM ICD-9-CM 1. Cataract of both eyes, unspecified cataract type H26.9 366.9 2. Preop cardiovascular exam Z01.810 V72.81 3. Essential hypertension I10 401.9 4. Hyperlipidemia, unspecified hyperlipidemia type E78.5 272.4 Reviewed ECHO and nuclear stress test done for the past 1-2 years. No cardiac concerns. Low cardiac risk for cataract surgery. Patient was counseled for lifestyle modifications including: diet, exercise and smoking cessation Thank you for allowing us to participate in the care of your patient. Please feel free to contact usfor any questions or if we can be of further assistance. Shefali Hinojosa MD, [facility], [place] Senior Accountant Analyst, Division of Cardiology [facility] documented in this encounter Plan of Treatment Health Maintenance Due Date Last Done Comments PNEUMOCOCCAL 0-64 YEARS COMBINED SERIES (1 of - 1975 PPSV23) DTaP,Tdap,and Td Vaccines (1 [...] filedocumented in this encounter Visit Diagnoses Diagnosis Cataract of both eyes, unspecified catar act type - Primary Preop cardiovascular exam Pre-operative cardiovascular examination Essential hypertension Unspecified essential hypertension Hyperlipidemia, unspecified hyperlipidem ia type documented in this encounter Insurance Payer Benefit Plan Subscriber ID Effective Phone Address Typ e / Group Dates [facility] [id number] 2019-Pre Medica re Adv [place] sent HMO CLASSIC/VALUE [facility] MEDICAID OF [id number] 2019-Pres [phone] [address] Medi caid [place] ent [id number] [place] [address] (Work) [id number] documented as of this encounter Advance Directives Name Relationship Healthcare Agent Communication Relationship Katie Tabares Spouse Health Care Agent [email or web address]
--- OUTSIDE RECORDS SUMMARY | 2019-12-13 12:52 | XMS REPORT | Summary of Care ---
:1970 Author Organization [facility] Address [address] [place] [address] Care Team Providers Name Role Phone Wily Mae MD Primary Care Provider Reason for Visit Reason Comments New Patient Cataract Sx Clearance Ekg Done today in office (Routine) Status Reason Specialty Diagnoses / Procedures Referred By Misty santos Referred To Contact Closed Cardiology Diagnoses Essential (primary) hypertension Prediabetes Karen Mae Procedures CONSULT/REFERRAL CARDIOLOGY MD Wily [address] [place] [address] Phone: Encounter Details Date Type Department Care Team Description 11/21/2019 Office Visit [facility] Shefali Hinojosa M D Cataract of both eyes, unspecified catar act type (Primary Dx); Cardiology- [address] Preop cardiovascular exam; [address] [place] [address] Essential hypertension; [facility] [place], [address] Hyperlipidemia, unspecified hyperlipidem ia type [place], [place] [phone] Allergies Active Allergy Reactions Severity Noted Date [...] cardiac evaluation PCP: Karen Mae Referring: Dr. Dickerson History of Present Illness: Jose Tabares is [...] file Gets together: Not on file Attends adventist service: Not on file Active member of [...] be of further assistance. Shefali Hinojosa MD, [facility], [place] Headlight Adjuster, Division of Cardiology [facility] documented in this encounter Plan of Treatment [...] Phone Address Typ e / Group Dates [facility] [id number] 2019-Pre Medica re Adv [place] sent HMO CLASSIC/VALUE [facility] MEDICAID OF [id number] 2019-Pres [phone] [address] Medi caid [place] ent [id number] [place] [address] (Work) [id number] documented as of this encounter Advance Directives Name Relationship Healthcare Agent Communication Relationship Katie Tabares Spouse Health Care Agent [email or web address]
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
--- OUTSIDE RECORDS SUMMARY | 2019-12-13 12:52 | XMS REPORT | Encounter Summary ---
:1970 Author Care Team Providers Name Role Phone Karen Mae MD Primary Care Provider [phone] Reason for Visit post op Instructions 1. Postoperative visit 2. Pseudophakia of right eye Discussion Note: None recorded.Patient educational handouts: No information available. Plan of Care Reminders Provider Appointments None recorded. Lab None recorded. Referral None recorded. Procedures None recorded. Surgeries None recorded. Imaging None recorded. Medications Name Start Date acetaminophen 300 mg-codeine 30 mg tablet TK 1 T PO Q 4 H PRN FOR PAIN acetazolamide 250 mg tablet albuterol sulfate HFA 90 mcg/actuation aerosol inhaler amoxicillin 875 mg-potassium clavulanate 125 mg tablet TK 1 T PO Q 12 H FOR 10 DAYS atorvastatin 10 mg tablet TK 1 T PO QD Banophen 25 mg capsule TK 1 C PO TID FOR 7 DAYS PRF ALLERGY SYMPTOMS. Celexa 10 mg tablet Take 1 tablet every day by oral route. ciprofloxacin 0.3 % eye drops citalopram 20 mg tablet cyclobenzaprine 10 mg tablet cyclobenzaprine 5 mg tablet diclofenac 1 % topical gel gabapentin 600 mg tablet ibuprofen 600 mg tablet ibuprofen 800 mg tablet ketorolac 0.5 % eye drops naproxen 500 mg tablet ondansetron 4 mg disintegrating tablet prednisolone acetate 1 % eye drops,suspension prednisone 20 mg tablet propranolol 10 mg tablet risperidone 1 mg tablet risperidone 4 mg tablet tramadol 37.5 mg-acetaminophen 325 mg tablet tramadol 50 mg tablet TK 1 T PO Q 8 H PRN venlafaxine ER 150 mg capsule,extended release 24 hr Medications Administered None recorded. Vitals None recorded. Results Lab Results None recorded. Allergies Code Code System Name Reaction Severity Status Onset Adhesive Tape Active [id number] RxNorm Latex Active Problems Name Status Onset Date Source Hyperlipidemia Active 12/06/2019 Anxiety Disorder Active 12/06/2019 Mental Disorder Active 12/06/2019 Depressive Disorder Active 12/06/2019 Migraine Active 12/06/2019 Nuclear Sclerotic Cataract Active 12/06/2019 Total, Mature Senile Cataract Active 12/06/2019 Acute Conjunctivitis Active 12/06/2019 Essential Hypertension Active 12/06/2019 Chronic Obstructive Lung Disease Active 12/06/2019 Postoperative Visit Active 12/06/2019 Pseudophakia of Right Eye Active 12/06/2019 Procedures Date Name Performed by Extraction of Cataract Information not a vailable Appendectomy Information not avai lable Hernia Repair W/mesh Information not jessica ilable Vaccine List None recorded. Social History Tobacco Smoking Status Heavy Tobacco Smoker (1/2 PPD) Past Encounters 12/06/2019 Postoperative Visit; Pseudophakia of Rig ht Eye Nell Dickerson MD: [address], [place] [address], Ph. History of Present Illness Post-Op (Ophthalmology) Reported By: Patient Note: <p>Pt here for 2 week follow up cataract OD - using PF 6 times a day and the Ketorolac andcipro QIDHAS A LARGE FLOATER</p><p>NO PAIN NOW OFF DIAMOX PILLS</p> Review of Systems Brief Ophthalmology ROS Reported By: Patient Notes: <p>No acute c/o</p> Physical Exam Notes: <p>ALERT WM IN NAD/</p><p>EO M: ET MOD SEVERE WILL ALTERNATE FREELY</p><p>PUPIL RD AND NL RX</p><p>EXT:NL</p><p>
</p><p>VA 20/400 SC AFTER SUTURE CUT 20/80+</p>< p>
</p><p>
</p><p>
</p><p>SLE OD</p><p>K WITH STRIAE/ NEG SIEDEL</p>< p>AC DEEP AND CLEAR</p><p>PC IOL IN SULCUS</p><p>CAPSULE OPEN</p ><p>VIT W/O CELLS</p><p>CONJ 1 + RED</p><p>
</p><p>TA=18&l t;/p><p>DIL FUNDUS:</p><p>NO RD</p><p>RETAINED CORTEX FLOATING INF TEMP ARE A--WHITE FLUFFY</p><p>
</p>
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
[2019-12-13] MEDS ORDERED: METHYLPREDNISOLONE 125 MG INJ ONE (13:43)
[2019-12-13] MEDS ORDERED: DIPHENHYDRAMINE 50 MG/ML VIAL ONE (13:43)
[2019-12-13] MEDS ORDERED: SMZ./TMP. 800/160 MG TABLET ONE (13:45)
[2019-12-13] MEDS ORDERED: HYDROCODONE/APAP 10/325 TAB ONE (13:45)
[2019-12-13 14:13] VITALS: TEMP 98.4; O2SAT 97
[2019-12-13 14:14] VITALS: BP 132/86
== END 2019-12-13 14:06 | disposition home or self-care (01) ==
LOC: ER 12:49
DX: R21 Rash and other nonspecific skin eruption (principal); T88.1XXA Other complications following immunization, not elsewhere classified, initial encounter; I10 Essential (primary) hypertension; Z91.018 Allergy to other foods; Z91.040 Latex allergy status; Z91.048 Other nonmedicinal substance allergy status
CPT/HCPCS: 96375; 96374; 99284; J1200; J2930

== ENCOUNTER 2020-05-13 10:57 | Emergency (ER) | payer OTHER ==
--- OUTSIDE RECORDS SUMMARY | 2020-05-13 11:00 | XMS REPORT | Clinical Summary ---
:1970 Author Organization [facility] Address [address] [place] [address] Care Team Providers Name Role Phone Unavailable [...] Not on file Last Filed Vital Signs Not on file Plan of Treatment Health Maintenance Due Date Last Done Comments COLON CANCER SCREENING COLONOSCOPY 1970 PNEUMOCOCCAL VACCINE 0-64 YRS (1 of 1 - PPSV23) 1975 INFLUENZA VACCINE (#1) 2019 LIPID PANEL 11/27/2020 11/27/2017 Results Not on fileafter 05/13/2019 Advance Directives For more information, please contact: [phone] Code Status Date Activated Date Inactivated Comments Full Code 11/26/2017 11:56 PM 11/27/2017 10:05 PM This code status was determined by: Patient
--- OUTSIDE RECORDS SUMMARY | 2020-05-13 11:01 | XMS REPORT | Continuity of Care Document ---
:1970 Author Organization [facility] t Address [address] [place] [address] Care Team Providers Name Role Phone Doctor Unassigned, Name Attending Clinician Unavailable Radha Eli Attending Clinician Ashish CIFUENTES Attending Clinician LAURA MULLEN Attending Clinician Unavailable LAURA MULLEN [...] Migraine Migraine Problem Active 2020-0 [place] [facility] Nuclear Nuclear Problem Active 0 [place] sclerotic Sclerotic 9-15 da cataract Cataract 00:00: [facility] Total, Total, Problem Active 0 [place] mature Mature 9-15 da senile Senile 00:00: [facility] cataract Cataract [facility] Acute Acute Problem Active 0 [place] conjunctiv Conjunctiv 9-15 da itis itis 00:00: [facility] Essential Essential Problem Active 0 [place] hypertensi Hypertensi 9-15 da on on 00:00: [facility] Chronic Chronic Problem Active [place] obstructiv Obstructiv 9-15 da e lung e Lung 00:00: [facility] disease Disease [facility] Postoperat Postoperat Problem Active 2019-0 [facility] [place] frank visit frank Visit 9-15 da 00:00: [facility] Pseudophak Pseudophak Problem Active 2019-0 [place] of [place] of 9-15 da right eye 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:00: Ep[facility] scleroscope tester 00 [facility] Hyperchole Hyperchole Problem Active 0 [facility] sterolemia sterolemia 4-15 Fa johan 00:00: Practic 00 e Chronic Chronic Problem Active 2019-0 [facility] back pain Back Pain 4-15 Fami ly 00:00: Practic 00 e Major Major Problem Active 2019-0 [place] depressive Depressive 4-14 Fa johan disorder Disorder 00:00: Practi c 00 e Anxiety Anxiety Problem Active 2019-0 [place] 4-14 Family 00:00: Practic 00 e Mild Mild Problem Active 2019-0 [place] chronic Chronic 4-14 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 Obstructiv 00:00: Pr actic e e 00 e pulmonary Pulmonary disease Disease Prediabete Prediabete Problem Active 0 [facility] s s 4-14 Family 00:00: Practic 00 e Chest pain Chest pain Disease [facility] Anxiety Anxiety Disease [facility] Essential Essential Disease Active [facility] hypertensi hypertensi 9-07 Jesi kes - on on 00:00: Medical 00 [place] Bipolar 1 Bipolar [address] [facility] disorder disorder 11-27 [facility] 00 [place] Migraine Migraine Disease [facility] [place] Tobacco Tobacco Disease Active [facility] abuse abuse 11[facility] 00 [place] Allergies, Adverse Reactions, Alerts Allergy Allergy Status Severity Reaction(s) Onset Inactive Treating Comm ents Source Name Type Date Date Clinician Hydrocod Drug Active Rash [facility] one-[facility]et [facility] - aminophe 00:[facility]: Medical n 00 [place] ADHESIVE Allergy Active [place] T[facility] to [facility] Latex Allergy Active [place] [facility] Family History Family Member Diagnosis Comments Start Date Stop Date Source Natural father Cancer [facility] Natural father Heart disease [facility] Natural mother No Known Problem [facility] Social History Social Habit Start Date Stop Date Quantity Comments Source History of tobacco Chews Tobacco [facility] use [facility] Sex Assigned [facility] Tobacco use and 2017-11-27 2017-11-27 Current user [facility] - exposure 00:00:00 00:00:00 [facility] Alcohol intake 2017-11-27 2017-11-27 Current [facility] - 00:00:00 00:00:00 non-drinker of Medical Ce nter alcohol (finding) Cigarettes smoked 2017-11-27 2017-11-27 [facility] - current (pack per 00:00:00 00:00:00 [facility] day) - Reported Cigarette 2017-11-27 2017-11-27 [facility] - pack-years 00:00:00 00:00:00 [facility] Smoking Status Start Date Stop Date Source Heavy Tobacco Smoker [place] [facility] Current every day smoker 2017-11-27 00:00:00 [facility] Medications Ordered Filled Start Stop Current Ordering Indication Dosage Frequency Signature Comments Components Source Medication Medication Date Date Medication? Clinician (SIG) Name Name venlafaxine Yes 150mg QD Take [address] (EFFEXOR-XR 9-07 [facility] by [facility] - ) 150 MG 24 20:05: mouth Medic al hr capsule 51 daily. Center gabapentin 2018-0 Yes 300mg Q.25D Take [address] (NEURONTIN) 9-07 [facility] by [facility] - 300 MG 20:05: mouth 4 Medical capsule 51 (four) Center times daily. risperiDONE 0 Yes 3mg QD Take [address] (RISPERDAL) 9-07 by mouth Luke s - 3 MG tablet 20:05: daily. [facility] eloy 51 Center aspirin 81 2017-0 Yes 81mg QD Take [address] MG chewable - by mouth Luke s - tablet 20:05: daily. [place] [id number] Center acetaminoph acetaminoph No acetaminop [place] en 300 [...] da eye drops eye drops eye drops [facility] citalopram citalopram No citalopram [place] 20 mg 20 mg 20 mg da tablet tablet tablet [facility] cyclobenzap cyclobenzap No cyclobenza [place] rine 10 mg rine 10 mg charito 10 da tablet tablet mg tablet [facility] cyclobenzap cyclobenzap No cyclobenza [place] rine 5 mg rine 5 mg charito 5 mg da tablet tablet tablet [facility] diclofenac diclofenac No diclofenac [place] 1 % topical 1 % topical 1 % d a gel gel [facility] gabapentin gabapentin No gabapentin [place] 600 mg 600 mg 600 mg da tablet tablet tablet [facility] ibuprofen ibuprofen No ibuprofen [place] 600 mg 600 mg 600 mg da tablet tablet [facility] ibuprofen ibuprofen No ibuprofen [place] 800 mg 800 mg 800 mg da tablet tablet tablet [facility] ketorolac ketorolac No ketorolac [place] 0.5 % eye 0.5 % eye 0.5 % eye da drops drops drops [facility] naproxen naproxen No naproxen [place] 500 mg 500 mg 500 mg da tablet tablet tablet [facility] ondansetron ondansetron No [...] 20 mg da tablet tablet tablet [facility] propranolol propranolol No propranolo [place] 10 mg 10 mg l 10 mg da tablet tablet tablet [facility] [...] Program atorvastati atorvastati No 1 Q1D atorvastat [facility] n 10 mg n 10 mg in 10 mg Famil y tablet Take tablet Take tablet Practic 1 tablet 1 tablet Take 1 e every day every day tablet by oral by oral every day route in route in by oral the the route in morning. morning. the morning. citalopram citalopram No 1 Q1D citalopram [facility] 20 mg 20 mg 20 mg [...] days. propranolol propranolol No 1 BID propranolo [facility] 10 mg 10 mg l 10 mg [...] Source Name Name influenza, influenza, 2018-11-21 Completed [facility] injectable, injectable, 00:00:00 Practice quadrivalent quadrivalent Vital Signs Vital Name Observation Time Observation Value Comments Source Height 2019-07-05 00:00:00 70 [in_i] [facility] BMI (Body Mass 2019-07-05 00:00:00 21.5 kg/m2 [facility]) Practice Body Weight 2019-07-05 00:00:00 150 [lb_av] [facility] Procedures Procedure Date / Time Performed Performing Clinician Bia bowles Extraction of Cataract [facility] Appendectomy [place] [facility] Hernia Repair W/mesh [place] [facility] Appendectomy [facility] Plan of Care Planned Activity Planned Date Details Comments Source Future Scheduled Test 2020-11-[address] [facility] - 00:00:00 (procedure) [code = Medical Center [id number]] Future Scheduled Test 2019-11-[address] [facility] - 00:[facility]:00 (#1) [code = Medical Center INFLUENZA VACCINE (#1)] Future Scheduled Test [address] [facility] - 00:00:00 0-64 YRS (1 of 1 - Medical C enter PPSV23) [code = PNEUMOCOCCAL VACCINE 0-64 YRS (1 of 1 - PPSV23)] Future Scheduled Test 1970 [facility] colon (procedure) [code = 976671451] Instructions [facility] Encounters Start End Encounter Admission Attending Care Care Encounter Source Date/Time Date/Time Type Type Clinicians Facility Department ID 2020-02-20 2020-02-20 Orders Doctor ROSAMARIA [id number] 00:00:00 00:00:00 Only Unassigned, LAURYN [id number] [place] [facility] [id number] [id number] 2020-02-04 2020-02-04 [facility] [id number] 12:43:00 13:48:00 Susy Martin [id number] [place] [id number] [place] [id number] 2019-12-06 2019-12-06 [facility] [id number] [facility] 00:00:00 00:00:00 Nahun Streeter MD: [address] [facility] [place] [facility] [address] [facility] ac , Ph. h ([phone]) Program 2019-11-22 2019-11-22 Telephone Ashish [facility] [id number] 00:00:00 00:00:00 Shefali Martin [id number] [place] [id number] [facility] [id number] [address] 2019-11-21 2019-11-21 Office Ashish [facility] [id number] 10:05:29 10:53:34 Visit Shefali Martin [id number] [place] [id number] ling [id number] [facility] 2019-11-18 2019-11-18 Orders Doctor ROSAMARIA [id number] 00:00:00 00:00:00 Only Unassigned, LAURYN [id number] [place] [facility] [id number] [id number] 2019-07-05 2019-07-05 Yaa [facility] [place] - [id number] [facility] 00:00:00 00:00:00 [facility] jonathon coleman, ETIQUETTE COACH: Medical - Practi c [address] [email or web address] [facility], [place] [address], [place] [address] , Ph. Results Test Description Test Time [...] of Refe rence Ranges BMP, BASIC METABOLIC [id number] 15:07:00 Test Item Value Reference Range Interpretation [...] glucose = GLUCOSE) normal <100 MG/ DL- [employer] recommendation* * CALCIUM (test code 9.4 MG/DL 8.4-10.2 = CABLOOD) GFR (test code = 95 A GFR of >9 0 GFR) mL/min/1.73m2 mL/min/1.73m2 is considered norm al. [id number] 15:07:00 Test Item Value Reference Range Interpretation Comments MG (test code = MG) 2.4 mg/dL 1.6-2.3 H PROTHROMBIN TIME WITH [id number] 14:02:00 Test Item Value Reference Range Interpretation Comments PROTHROMBIN TIME 13.7 SECONDS 12.0-14.6 INR Usual R randal = 2 (test code = PT) to 3 for pr evention of deep vein thrombosis (DVT ) INR (test code = INR) 1.1 [id number] 13:45:00 Test Item Value Reference Range Interpretation [...] K/UL 1.2-7.2 = NEUT) CHEST XR 2 [id number] 12:25:[address] [address]NGWABXOORL IMAGING REPORTPatient Name: Yamil TABARES of Service: [id number]: 48 Sex: M Order #: [id number] Room: [facility]: 1970 X-Ray Number: [id number] Record Number: [id number] Hospital Number: [id number] Physician: NELIDA WAITE -Ordering Physician: NELIDA WAITE [...] 12:23:24PET, CARDIAC PERFUSION MULTIPLE STUDIES, REST AND [id number] 15:30:00Reason for exam:- >chest pain, multiple risk factors for CADFINAL REPORT PROCEDURE: Rest/Stress MYOCARDIAL PERFUSION PET with regadenoson\\XA9\\ CPT CODE: 22190 INDICATION: Chest pain, multiple risk factors for CAD HISTORY: Cardiac risk factors: Diabetes, hypertension, tobacco. Other cardiovascular history: Previous PR. Recent cardiac symptoms: Chest pain. PROTOCOL: Limited [...] tracer distribution. 6. No previous [facility] study for comparison. NONINVASIVE RISK STRATIFICATION: The above findings are considered low risk (<1% annual mortality rate) based on the following criterion:- Normal or small myocardial perfusion defectat rest or with stress(JACC. 2012;59(9):857-81.) Signed: Alfred Love MDReport Verified Date/Time:11/27/2017 15:30:18 Reading Location: [address] Reading Room HEMOGLOBIN [id number] 09:48:00 Test Item Value Reference Range Interpretation Comments HEMOGLOBIN A1C (BEAKER) (test code = 4.9 % 4.3-6.1 368) BASIC METABOLIC [id number] 06:47:00 Test Item Value Reference Range Interpretation [...] DATA TO CALCULA TE ESTIMATED GFR. TROPONIN [id number] 06:44:00 Test Item Value Reference Range Interpretation [...] failure, acidosis, acute neurological disease, and persistent tachyarrhythmia.[id number] 06:43:00 Test Item Value Reference Range Interpretation Comments MAGNESIUM (BEAKER) (test code = 2.7 mg/dL 1.6-2.6 H 627) CBC W/PLT COUNT & AUTO [id number] 06:09:00 Test Item Value Reference Range Interpretation [...] PERCENT (BEAKER) (test code = 2801) TROPONIN [id number] 01:49:00 Test Item Value Reference Range Interpretation [...] acute neurological disease, and persistent tachyarrhythmia.BASIC METABOLIC [id number] 01:49:00 Test Item Value Reference Range Interpretation [...] m DATA TO CALCULA TE ESTIMATED GFR. [id number] 01:42:00 Test Item Value Reference Range Interpretation Comments MAGNESIUM (BEAKER) (test code = 2.2 mg/dL 1.6-2.6 627) LIPID [id number] 01:42:00 Test Item Value Reference Range Interpretation [...] 130-159 High 160-189 Very High >=190HEPATIC FUNCTION [id number] 01:42:00 Test Item Value Reference Range Interpretation [...] 6-55 347) CBC W/PLT COUNT & AUTO [id number] 00:59:00 Test Item Value Reference Range Interpretation [...] % 0-1 PERCENT (BEAKER) (test code = 5481)
--- NOTE | 2020-05-13 11:58 | ER ---
Nurse's Notes [facility] Name: Jose Tabares Age: 50 yrs Sex: Male : 1970 Arrival Date: 05/13/2020 Time: 10:58 Bed Waiting Private MD: Diagnosis: Presentation: 05/13 11:55 Note Neris registration states, "he left after 5 minutes, he didn't want to wait". ca1 ED Course: 10:58 Patient arrived in ED. as 11:56 [facility]. Unable to locate patient. Will ca1 disposition as left without being seen by a provider. Administered Medications: No medications were administered Outcome: 11:56 Patient left the ED. ca1 Signatures: Neris Wagner Cheryl, RN RN ca1
== END 2020-05-13 11:56 | disposition left against medical advice (07) ==
LOC: ER 10:57
DX: Z02.9 Encounter for administrative examinations, unspecified (principal)

== ENCOUNTER 2020-08-11 19:28 | Emergency (ER) | payer OTHER ==
--- OUTSIDE RECORDS SUMMARY | 2020-08-11 19:31 | XMS REPORT | Continuity of Care Document ---
:1970 Author Organization [facility] t Address [address] [place] [address] Dr. Diane. [address] [place] [address] Care Team Providers Name Role Phone Nnamdi Cavazos DO Attending Clinician Doctor Unassigned, Name Attending Clinician Unavailable Ajay CIFUENTES Attending Clinician Radha Eli Attending Clinician Ashish CIFUENTES Attending Clinician LAURA MULLEN Attending Clinician Unavailable LAURA MULLEN Admitting Clinician Unavailable Problems Condition Condition Condition Status Onset Resolution Last Treating Co mments Source Name Details Category Date Date Treatment Clinician Date Mild major Mild Major Problem Active [facility] depression Depression 4-18 Fa johan , single , Single 00:00: Practi c episode Episode 00 e Hyperlipid Hyperlipid Problem Active [facility] emia emia 12-05 [facility] Anxiety Anxiety Problem Active [place] disorder Disorder 12-05 da 00:[facility] Mental Mental Problem Active 2020-0 [place] disorder Disorder 9-15 da 00:[facility] Depressive Depressive Problem Active 2020-0 [facility] [place] disorder Disorder 9-15 da [facility] Acute Acute Problem Active 2019-0 [place] conjunctiv Conjunctiv 9-15 da itis itis 00:00: [facility] Essential Essential Problem Active 2019-0 [place] hypertensi Hypertensi 9-15 da on on 00:00: [facility] Chronic Chronic Problem Active 2019-0 [place] obstructiv Obstructiv 9-15 da e lung e Lung 00:00: [facility] disease Disease [facility] Postoperat Postoperat Problem Active 2020-0 [facility] [place] frank visit frank Visit 9-15 da 00:00: [facility] Pseudophak Pseudophak Problem Active 2020-0 [place] ia of ia of 9-15 da right eye 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:00: Ep[facility] 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 al [facility] Hyperchole Hyperchole Problem Active 2019-0 [facility] sterolemia sterolemia 4-15 Fa johan 00:00: Practic 00 e Chronic Chronic Problem Active 2020-0 [facility] back pain Back Pain 4-15 Fami ly 00:00: Practic 00 e Anxiety Anxiety Problem Active 2020-0 [facility] 4-14 Family 00:00: Practic 00 e Mild Mild Problem Active 2020-0 [facility] chronic Chronic 4-14 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 Obstructiv 00:00: Pr actic e e 00 e pulmonary Pulmonary disease Disease Prediabete Prediabete Problem Active 2019-0 [facility] s s 4-14 Family 00:00: Practic 00 e Chest pain Chest pain Disease Active [facility] 00 [place] Anxiety Anxiety Disease Active [facility] 00 [place] Essential Essential Disease Active [facility] hypertensi hypertensi 11-27 Jesi kes - on on 00:00: Medical 00 [place] Bipolar 1 Bipolar [address] [facility] disorder disorder 11-27 Lu - 00:00: Medical 00 [place] Migraine Migraine Disease [facility] 00 [place] Tobacco Tobacco Disease Active [facility] abuse abuse 11-27 [facility] - 00:00: Medical 00 [place] Allergies, Adverse Reactions, Alerts Allergy Allergy Status Severity Reaction(s) Onset Inactive Treating Comm ents Source Name Type Date Date Clinician Hydrocod Drug Active Rash [facility] one-Acet Allergy 11-26 [facility] - aminophe 00:00: Medical n 00 [place] ADHESIVE Allergy Active [place] TAPE to da substanc [facility] Latex Allergy Active [place] to da substanc [facility] Family History Family Member Diagnosis Comments Start Date Stop Date Source Natural father Cancer [facility] Natural father Heart disease [facility] Natural mother No Known Problem [facility] Social History Social Habit Start Date Stop Date Quantity Comments Source History of tobacco Chews Tobacco [facility] use [facility] Sex Assigned [facility] Tobacco use and 2017-11-27 2017-11-27 Current user [facility] - exposure 00:00:00 00:00:00 [facility] Alcohol intake 2017-11-27 2017-11-27 Current [facility] - 00:00:00 00:00:00 non-drinker of Medical Ce nter alcohol (finding) Cigarettes smoked 2017-11-27 2017-11-27 [facility] - current (pack per 00:00:00 00:00:00 [facility] Center day) - Reported Cigarette 2017-11-27 2017-11-27 [facility] - pack-years 00:00:00 00:00:00 [facility] Smoking Status Start Date Stop Date Source Heavy Tobacco Smoker [facility] Current every day smoker 2017-11-27 00:00:[address] [facility] Medications Ordered Filled Start Stop Current Ordering Indication Dosage Frequency Signature Comments Components Source Medication Medication Date Date Medication? Clinician (SIG) Name Name venlafaxine Yes 150mg QD Take [address] (EFFEXOR-XR 9-07 mg by [facility] - ) 150 MG 24 20:05: mouth Medic al hr capsule 51 daily. [place] gabapentin Yes 300mg Q.25D Take [address] (NEURONTIN) 9-07 [facility] by [facility] - 300 MG 20:05: mouth 4 Medical capsule 51 (four) Center times daily. risperiDONE Yes 3mg QD Take [address] (RISPERDAL) 9-07 by mouth [facility] - 3 MG tablet 20:05: daily. [facility] aspirin 81 Yes 81mg QD Take [address] MG chewable 9-07 by mouth [facility] - tablet 20:05: daily. [address] acetaminoph acetaminoph No acetaminop [place] en [...] T PO QD 1 T PO QD [facility] Banophen 25 Banophen [...] da eye drops eye drops eye drops [facility] citalopram citalopram No citalopram [place] 20 mg 20 mg 20 mg da tablet tablet tablet [facility] cyclobenzap cyclobenzap No cyclobenza [place] rine 10 mg rine 10 mg charito 10 da tablet tablet mg tablet [facility] cyclobenzap cyclobenzap No cyclobenza [place] rine 5 mg rine 5 mg charito 5 mg da tablet tablet tablet [facility] diclofenac diclofenac No diclofenac [place] 1 % topical 1 % topical 1 % d a gel gel topical [facility] gabapentin gabapentin No gabapentin [place] 600 mg 600 mg 600 mg da tablet tablet tablet [facility] ibuprofen ibuprofen No ibuprofen [place] 600 mg 600 mg 600 mg da tablet tablet tablet [facility] ibuprofen ibuprofen No ibuprofen [place] 800 mg 800 mg 800 mg da tablet tablet tablet [facility] ketorolac ketorolac No ketorolac [place] 0.5 % eye 0.5 % eye 0.5 % eye da drops drops drops [facility] naproxen naproxen No naproxen [place] 500 mg 500 mg 500 mg da tablet tablet tablet [facility] ondansetron ondansetron No [...] hr release 24 Outreac hr h Program citalopram citalopram No 1 Q1D citalopram [facility] 20 mg 20 mg 20 mg Family [...] ProAir HFA No 2puff(s Q4H ProAir HFA [facility] 90 90 ) 90 Family mcg/actuati mcg/actuati [...] by bedtime. bedtime. oral route at bedtime. atorvastati atorvastati No 1 Q1D atorvastat [facility] n 10 mg n 10 mg in 10 mg Famil y tablet Take tablet Take tablet Practic 1 tablet 1 tablet Take 1 e every day every day tablet by oral by oral every day route in route in by oral the the route in morning. morning. the morning. Immunizations Ordered Immunization Filled Immunization Date Status Commen ts Source Name Name influenza, influenza, 2018-11-21 Completed [facility] injectable, injectable, 00:00:00 Practice quadrivalent quadrivalent Vital Signs Vital Name Observation Time Observation Value Comments Source Height 2020-07-05 00:00:00 70 [in_i] [facility] Practice BMI (Body Mass 2020-07-05 00:00:00 22.2 kg/m2 [facility] Family Index) Practice Body Weight 2020-07-05 00:00:00 155 [lb_av] [facility] Practice Height 2019-07-05 00:00:00 70 [in_i] [facility] BMI (Body Mass 2019-07-05 00:00:00 21.5 kg/m2 [facility] Family Index) Practice Body Weight 2019-07-05 00:00:00 150 [lb_av] [facility] Procedures Procedure Date / Time Performed Performing Clinician Sour e Extraction of Cataract [facility] Appendectomy [facility] Hernia Repair W/mesh [facility] Appendectomy [facility] Plan of Care Planned Activity Planned Date Details Comments Source Future Scheduled Test 2020-11-[address] [facility] - 00:[facility]:00 (procedure) [code = Medical Center 97159523] Future Scheduled Test 2020-11-[address] [facility] - 00:00:00 (Season Ended) [code Medical Center = INFLUENZA VACCINE (Season Ended)] Future Scheduled Test 2019 SHINGLES VACCINES ([address] [facility] - 00:00:00 of 2) [code = Medical Center SHINGLES VACCINES (1 of 2)] Future Scheduled Test 1988-02-18 DTAP/TDAP/TD VACCINES [facility] - 00:00:00 (1 - Tdap) [code = Medical C enter DTAP/TDAP/TD VACCINES (1 - Tdap)] Future Scheduled Test 1987 HEPATITIS C [facility]CRE[facility] - 00:00:00 [code = HEPATITIS C Medical Center SCREENING] Future Scheduled Test [address] [facility] - 00:00:00 0-64 YRS (1 of 1 - Medical C enter PPSV23) [code = PNEUMOCOCCAL VACCINE 0-64 YRS (1 of 1 - PPSV23)] Future Scheduled Test 1970 [facility] malignant neoplasm of Medica l Center colon (procedure) [code = 809464574] Future Appointment 2020-11-07 Yaa Pandey, [facility] Family 00:00:00 [address]; [address], [place] [address] Instructions [facility] Encounters Start End Encounter Admission Attending Care Care Encounter Source Date/Time Date/Time Type Type Clinicians Facility Department ID 2020-07-05 2020-07-05 Yaa [facility] [place] - [id number] [facility] 00:00:00 00:00:00 Dannie [facility] Darnell coleman PIN CLEANER: Medical - Practi c [address] [email or web address], [address], [place] [address] , Ph. 2020-06-12 2020-06-12 Patient D[facility] [id number] 00:00:00 00:00:00 Outreach [facility] [id number] [facility] 4.2.7.2.686 [place] [id number] 2020-05-23 2020-05-23 Orders Doctor ROSAMARIA [id number] 00:00:00 00:00:00 Only Unassigned, LAURYN [id number] [facility] [address].2.7.2.686 [id number] 2020-05-13 2020-05-13 Emergency [facility] [id number] 11:38:00 12:32:00 Johnny Martin [id number] [place] 4.2.7.2.686 [place] [id number] 2020-05-13 2020-05-13 Orders Doctor BLANK [id number] 00:00:00 00:00:00 Only Unassigned, LAURYN [id number] [place] [address]686 [id number] 2020-02-20 2020-02-20 Orders Doctor BLANK [id number] 00:00:00 00:00:00 Only Unassigned, LAURYN [id number] [facility] [address]686 [id number] [id number] 2020-02-04 2020-02-04 Emergency [facility] [id number] 12:43:00 13:48:00 Susy Martin [id number]2.686 [place] [id number] 2019-12-06 2019-12-06 Nell LIRA [place] - [id number] Kassie 00:00:00 00:00:00 Nahun Streeter MD: [address], [facility] [place], [place] [facility] [address] [facility] , Ph. h ([phone]) [facility] 2019-11-22 2019-11-22 Telephone [facility] [id number] 00:00:00 00:00:00 Shefali Martin [id number] [place] 4.2.7.2.686 Professio [id number] [facility] 2019-11-21 2019-11-21 Office [facility] [id number] 10:05:29 10:53:34 Visit Shefali Martin [id number] [place] 4.2.7.2.686 Professio [id number] [facility] 2019-11-18 2019-11-18 Orders Doctor ROSAMARIA [id number] 00:00:00 00:00:00 Only Unassigned, LAURYN [id number] [place] [facility] 4.2.7.2.686 [id number] 2019-07-05 2019-07-05 Yaa [facility] - [id number] V illage 00:00:00 00:00:00 [facility] jonathon coleman PIN CLEANER: Medical - Practi c [address] [email or web address], [address] [place] [address], [place] [address] , Ph. Results Test Description Test Time [...] of Refe rence Ranges BMP, BASIC METABOLIC [id number] 15:07:00 Test Item Value Reference Range Interpretation [...] glucose = GLUCOSE) normal <100 MG/ DL- [employer] recommendation* * CALCIUM (test code 9.4 MG/DL 8.4-10.2 = CABLOOD) GFR (test code = 95 A GFR of >9 0 GFR) mL/min/1.73m2 mL/min/1.73m2 is considered norm al. [id number] 15:07:00 Test Item Value Reference Range Interpretation Comments MG (test code = MG) 2.4 mg/dL 1.6-2.3 H PROTHROMBIN TIME WITH [id number] 14:02:00 Test Item Value Reference Range Interpretation Comments PROTHROMBIN TIME 13.7 SECONDS 12.0-14.6 INR Usual R randal = 2 (test code = PT) to 3 for pr evention of deep vein thrombosis (DVT ) INR (test code = INR) 1.1 [id number] 13:45:00 Test Item Value Reference Range Interpretation [...] K/UL 1.2-7.2 = NEUT) CHEST XR 2 [id number] 12:25:[address] [address]BLPEXDYPXG IMAGING REPORTPatient Name: Mechelle TABARESkosta of Service: [id number]: 48 Sex: M Order #: [id number] Room: [facility]: 1970 X-Ray Number: [id number] Record Number: [id number] Hospital Number: [id number] Physician: NELIDA WAITE -Ordering Physician: NELIDA WAITE [...] 12:23:24PET, CARDIAC PERFUSION MULTIPLE STUDIES, REST AND [id number] 15:30:00Reason for exam:- >chest pain, multiple risk factors for CADFINAL REPORT PROCEDURE: Rest/Stress MYOCARDIAL PERFUSION PET with regadenoson\\XA9\\ CPT CODE: 43727 INDICATION: Chest pain, multiple risk factors for CAD HISTORY: Cardiac risk factors: Diabetes, hypertension, tobacco. Other cardiovascular history: Previous RI. Recent cardiac symptoms: Chest pain. PROTOCOL: Limited [...] Normal extracardiac tracer distribution. 6. No previous [facility] study for comparison. NONINVASIVE RISK STRATIFICATION: The above findings are considered low risk (<1% annual mortality rate) based on the following criterion:- Normal or small myocardial perfusion defectat rest or with stress(JACC. 2012;59(9):857-81.) Signed: Alfred Cotaeport Verified Date/Time:11/27/2017 15:30:18 Reading Location: [address] Reading Room HEMOGLOBIN [id number] 09:48:00 Test Item Value Reference Range Interpretation Comments HEMOGLOBIN A1C (BEAKER) (test code = 4.9 % 4.3-6.1 368) BASIC METABOLIC [id number] 06:47:00 Test Item Value Reference Range Interpretation [...] DATA TO CALCULA TE ESTIMATED GFR. TROPONIN [id number] 06:44:00 Test Item Value Reference Range Interpretation [...] failure, acidosis, acute neurological disease, and persistent tachyarrhythmia.[id number] 06:43:00 Test Item Value Reference Range Interpretation Comments MAGNESIUM (BEAKER) (test code = 2.7 mg/dL 1.6-2.6 H 627) CBC W/PLT COUNT & AUTO [id number] 06:09:00 Test Item Value Reference Range Interpretation [...] PERCENT (BEAKER) (test code = 2801) TROPONIN [id number] 01:49:00 Test Item Value Reference Range Interpretation [...] acute neurological disease, and persistent tachyarrhythmia.BASIC METABOLIC [id number] 01:49:00 Test Item Value Reference Range Interpretation [...] m DATA TO CALCULA TE ESTIMATED GFR. [id number] 01:42:00 Test Item Value Reference Range Interpretation Comments MAGNESIUM (BEAKER) (test code = 2.2 mg/dL 1.6-2.6 627) LIPID [id number] 01:42:00 Test Item Value Reference Range Interpretation [...] 130-159 High 160-189 Very High >=190HEPATIC FUNCTION [id number] 01:42:00 Test Item Value Reference Range Interpretation [...] 6-55 347) CBC W/PLT COUNT & AUTO [id number] 00:59:00 Test Item Value Reference Range Interpretation [...]
[2020-08-11] MEDS ORDERED: MORPHINE 4 MG/ML SYR ONE (20:13)
--- NOTE | 2020-08-11 20:14 | RAD REPORT ---
EXAM DESCRIPTION: RAD - Foot Right 3 View - 08/11/2020 8:04 pm CLINICAL HISTORY: trauma Trauma, pain COMPARISON: No comparisons FINDINGS: No fracture or dislocation.
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
[2020-08-11 21:14] VITALS: TEMP 98.6; O2SAT 97
[2020-08-11 21:15] VITALS: BP 118/80
== END 2020-08-11 21:07 | disposition home or self-care (01) ==
LOC: ER 19:28
DX: S90.31XA Contusion of right foot, initial encounter (principal); W20.8XXA Other cause of strike by thrown, projected or falling object, initial encounter; I25.2 Old myocardial infarction; F41.9 Anxiety disorder, unspecified; F31.9 Bipolar disorder, unspecified; I10 Essential (primary) hypertension; H54.8 Legal blindness, as defined in USA; Y92.009 Unspecified place in unspecified non-institutional (private) residence as the place of occurrence of the external cause
CPT/HCPCS: 96372; 99284

== ENCOUNTER 2020-09-06 12:52 | Emergency (ER) | payer OTHER ==
--- OUTSIDE RECORDS SUMMARY | 2020-09-06 12:57 | XMS REPORT | Continuity of Care Document ---
:1970 Author Organization [facility] t Address 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 [facility] chronic Chronic 4-14 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 Obstructiv 00:00: Pr actic e e 00 e pulmonary Pulmonary disease Disease Prediabete Prediabete Problem Active 2019-0 [facility] s s 4-14 Family 00:00: Practic 00 e Chest pain Chest pain Disease Active [facility] 00 [place] Anxiety Anxiety Disease Active [facility] 00 [place] Essential Essential Disease Active [facility] hypertensi hypertensi 11-27 Jesi kes - on on 00:00: Medical 00 [place] Bipolar 1 Bipolar [address] [facility] disorder disorder 11-27 [facility] - 00:00: Medical 00 [place] Migraine Migraine Disease [facility] 00 [place] Tobacco Tobacco Disease Active [facility] abuse abuse 11-27 [facility] - 00:00: Medical 00 [place] Allergies, Adverse Reactions, Alerts Allergy Allergy Status Severity Reaction(s) Onset Inactive Treating Comm ents Source Name Type Date Date Clinician Hydrocod Drug Active Rash [facility] one-Acet Allergy 11-26 [facility] - aminophe 00:00: Medical n 00 [place] ADHESIVE Allergy Active [place] TAPE to da [facility]stanc [facility] Latex Allergy Active [place] to [facility]anc [facility] Family History Family Member Diagnosis Comments Start Date Stop Date Source Natural father Cancer [facility] Natural father Heart disease [facility] Natural mother No Known Problem [facility] Social History Social Habit Start Date Stop Date Quantity Comments Source History of tobacco Chews Tobacco [facility] use [facility] Sex Assigned At [facility] Tobacco use and 2017-11-27 2017-11-27 Current user [facility] - exposure 00:00:00 00:00:00 [facility] Alcohol intake 2017-11-27 2017-11-27 Current [facility] - 00:00:00 00:00:00 non-drinker of Medical Ce nter alcohol (finding) Cigarettes smoked 2017-11-27 2017-11-27 [facility] - current (pack per 00:00:00 00:00:00 [facility] Center day) - Reported Cigarette 2017-11-27 2017-11-27 [facility] - pack-years 00:00:00 00:00:00 [facility] Smoking Status Start Date Stop Date Source Heavy Tobacco Smoker [facility] Current every [...] mouth Medic al hr capsule 51 daily. [place] gabapentin Yes 300mg Q.25D Take [address] (NEURONTIN) 9-07 mg by [facility] - 300 MG 20:05: mouth 4 Medical capsule 51 (four) Center times daily. risperiDONE Yes 3mg QD Take [address] (RISPERDAL) 9-07 by mouth [facility] - 3 MG tablet 20:05: daily. [facility] aspirin 81 Yes 81mg QD Take [address] MG chewable 9-07 by mouth [facility] - tablet 20:05: daily. [address] acetaminoph acetaminoph No acetaminop [place] en [...] T PO QD 1 T PO QD [facility] Banophen 25 Banophen [...] da eye drops eye drops eye drops [facility] citalopram citalopram No citalopram [place] 20 mg 20 mg 20 mg da tablet tablet tablet [facility] cyclobenzap cyclobenzap No cyclobenza [place] rine 10 mg rine 10 mg charito 10 da tablet tablet mg tablet [facility] cyclobenzap cyclobenzap No cyclobenza [place] rine 5 mg rine 5 mg charito 5 mg da tablet tablet tablet [facility] diclofenac diclofenac No diclofenac [place] 1 % topical 1 % topical 1 % d a gel gel topical [facility] gabapentin gabapentin No gabapentin [place] 600 mg 600 mg 600 mg da tablet tablet tablet [facility] ibuprofen ibuprofen No ibuprofen [place] 600 mg 600 mg 600 mg da tablet tablet tablet [facility] ibuprofen ibuprofen No ibuprofen [place] 800 mg 800 mg 800 mg da tablet tablet tablet [facility] ketorolac ketorolac No ketorolac [place] 0.5 % eye 0.5 % eye 0.5 % eye da drops drops drops [facility] naproxen naproxen No naproxen [place] 500 mg 500 mg 500 mg da tablet tablet tablet [facility] ondansetron ondansetron [...] Program citalopram citalopram No 1 Q1D citalopram [facility] 20 mg 20 mg 20 mg Family [...] ProAir HFA No 2puff(s Q4H ProAir HFA [facility] 90 90 ) 90 Family mcg/actuati mcg/actuati [...] bedtime. atorvastati atorvastati No 1 Q1D atorvastat [facility] n 10 mg n 10 mg in [...] Source Name Name influenza, influenza, 2018-11-21 Completed [facility] injectable, injectable, 00:00:00 Practice quadrivalent quadrivalent Vital Signs Vital Name Observation Time Observation Value Comments Source Height 2020-07-05 00:00:00 70 [in_i] [facility] Practice BMI (Body Mass 2020-07-05 00:00:00 22.2 kg/m2 [facility] Family Index) Practice Body Weight 2020-07-05 00:00:00 155 [lb_av] [facility] Practice Height 2019-07-05 00:00:00 70 [in_i] [facility] BMI (Body Mass 2019-07-05 00:00:00 21.5 kg/m2 [facility] Family Index) Practice Body Weight 2019-07-05 00:00:00 150 [lb_av] [facility] Procedures Procedure Date / Time Performed Performing Clinician Sour e Extraction of Cataract [facility] Appendectomy [facility] Hernia Repair W/mesh [facility] Appendectomy [facility] Plan of Care Planned Activity Planned Date Details Comments Source Future Scheduled Test 2020-11-[address] [facility] - 00:[facility]00 (procedure) [code = [facility] Center 39289488] Future Scheduled Test 2020-11-21 INFLUENZA VACCINE C [...] Medica l Center colon (procedure) [code = 339854054] Future Appointment 2020-11-07 Yaa Pandey, [facility] Family 00:00:00 [address]; [address], [place] [address] Instructions [facility] Encounters Start End Encounter Admission Attending Care Care Encounter Source Date/Time Date/Time Type Type Clinicians Facility Department ID 2020-07-05 2020-07-05 Yaa [facility] [place] - [id number] [facility] 00:00:00 00:00:00 Dannie [facility] Darnell coleman [employer] TECHNICIAN: Medical - Practi c [address] [email or web address] [facility], [address] [place] [address], [place] [address] , Ph. 2020-06-12 2020-06-12 Patient Dirk [facility] [id number] 00:00:00 00:00:00 [facility] [id number] [facility] 4.2.7.2.686 [place] [id number] 2020-05-23 2020-05-23 Orders Doctor ROSAMARIA [id number] 00:00:00 00:00:00 Only Unassigned, LAURYN [id number] [place] [id number] [id number] [id number] 2020-05-13 2020-05-13 Emergency [facility] [id number] 11:38:00 12:32:00 Johnny Martin [id number] [place] 4.2.7.2.686 [place] [id number] 2020-05-13 2020-05-13 Orders Doctor BLANK [id number] 00:00:00 00:00:00 Only Unassigned, ALURYN [id number] [place] [address]2.686 [id number] [id number] 2020-02-20 2020-02-20 Orders Doctor BLANK [id number] 00:00:00 00:00:00 Only Unassigned, LAURYN [id number] [place] [address]2.686 [id number] 2020-02-04 2020-02-04 Emergency [facility] [id number] 12:43:00 13:48:00 Susy Martin [id number]7.2.686 [place] [id number] 2019-12-06 2019-12-06 Nell LIRA [place] - [id number] Kassie 00:00:00 00:00:00 Nahun Streeter MD: [address], [facility] [place] [place] [facility] [address] [facility] , Ph. h ([phone]) [facility] 2019-11-22 2019-11-22 Telephone [facility] [id number] 00:00:00 00:00:00 Shefali Martin [id number] [place] 4.2.7.2.686 Professio [id number] [facility]9 [facility] 2019-11-21 2019-11-21 Office [facility] [id number] 10:05:29 10:53:34 Visit Shefali Martin [id number] [place] 4.2.7.2.686 Professio [id number] [facility] 2019-11-18 2019-11-18 Orders Doctor ROSAMARIA [id number] 00:00:00 00:00:00 Only Unassigned, LAURYN [id number] [place] [facility] 4.2.7.2.686 [id number] [id number] 2019-07-05 2019-07-05 Yaa [facility] - [id number] [place] 00:00:00 00:00:00 [facility] jonathon coleman [employer]CHNICIAN: Medical - Practi c [address] [email or web address] [facility], [address] [place] [address], [place] [address] , Ph. Results Test Description Test Time [...] of Refe rence Ranges BMP, BASIC METABOLIC [id number] 15:07:00 Test Item Value Reference Range Interpretation [...] glucose = GLUCOSE) normal <100 MG/ DL- [employer] recommendation* * CALCIUM (test code 9.4 MG/DL 8.4-10.2 = CABLOOD) GFR (test code = 95 A GFR of >9 0 GFR) mL/min/1.73m2 mL/min/1.73m2 is considered norm al. [id number] 15:07:00 Test Item Value Reference Range Interpretation Comments MG (test code = MG) 2.4 mg/dL 1.6-2.3 H PROTHROMBIN TIME WITH [id number] 14:02:00 Test Item Value Reference Range Interpretation Comments PROTHROMBIN TIME 13.7 SECONDS 12.0-14.6 INR Usual R randal = 2 (test code = PT) to 3 for pr evention of deep vein thrombosis (DVT ) INR (test code = INR) 1.1 [id number] 13:45:00 Test Item Value Reference Range Interpretation [...] K/UL 1.2-7.2 = NEUT) CHEST XR 2 [id number] 12:25:[address] [id number] IMAGING REPORTPatient Name: Mechelle TABARESkosta of Service: [id number]: 48 Sex: M Order #: [id number] Room: [facility]: 1970 X-Ray Number: [id number] Record Number: [id number] Hospital Number: [id number] Physician: NELIDA WAITE -Ordering Physician: NELIDA WAITE [...] 12:23:24PET, CARDIAC PERFUSION MULTIPLE STUDIES, REST AND [id number] 15:30:00Reason for exam:- >chest pain, multiple risk factors for CADFINAL REPORT PROCEDURE: Rest/Stress MYOCARDIAL PERFUSION PET with regadenoson\\XA9\\ CPT CODE: 30155 INDICATION: Chest pain, multiple risk factors for CAD HISTORY: Cardiac risk factors: Diabetes, hypertension, tobacco. Other cardiovascular history: Previous [place]. Recent cardiac symptoms: Chest pain. PROTOCOL: Limited [...] Normal extracardiac tracer distribution. 6. No previous [facility] study for comparison. NONINVASIVE RISK STRATIFICATION: The above findings are considered low risk (<1% annual mortality rate) based on the following criterion:- Normal or small myocardial perfusion defectat rest or with stress(JACC. 2012;59(9):857-81.) Signed: Alfred Cotaeport Verified Date/Time:11/27/2017 15:30:18 Reading Location: [address] Reading Room HEMOGLOBIN [id number] 09:48:00 Test Item Value Reference Range Interpretation Comments HEMOGLOBIN A1C (BEAKER) (test code = 4.9 % 4.3-6.1 368) BASIC METABOLIC [id number] 06:47:00 Test Item Value Reference Range Interpretation [...] DATA TO CALCULA TE ESTIMATED GFR. TROPONIN [id number] 06:44:00 Test Item Value Reference Range Interpretation [...] failure, acidosis, acute neurological disease, and persistent tachyarrhythmia.[id number] 06:43:00 Test Item Value Reference Range Interpretation Comments MAGNESIUM (BEAKER) (test code = 2.7 mg/dL 1.6-2.6 H 627) CBC W/PLT COUNT & AUTO [id number] 06:09:00 Test Item Value Reference Range Interpretation [...] PERCENT (BEAKER) (test code = 2801) TROPONIN [id number] 01:49:00 Test Item Value Reference Range Interpretation [...] acute neurological disease, and persistent tachyarrhythmia.BASIC METABOLIC [id number] 01:49:00 Test Item Value Reference Range Interpretation [...] m DATA TO CALCULA TE ESTIMATED GFR. LIPID [id number] 01:42:00 Test Item Value Reference Range Interpretation [...] 130-159 High 160-189 Very High >=190HEPATIC FUNCTION [id number] 01:42:00 Test Item Value Reference Range Interpretation [...] (test code = 8 U/L 6-55 347) [id number] 01:42:00 Test Item Value Reference Range Interpretation Comments MAGNESIUM (BEAKER) (test code = 2.2 mg/dL 1.6-2.6 627) CBC W/PLT COUNT & AUTO [id number] 00:59:00 Test Item Value Reference Range Interpretation [...]
[2020-09-06] MEDS ORDERED: METHYLPREDNISOLONE 125 MG INJ ONE (15:43)
[2020-09-06] MEDS ORDERED: KETOROLAC 30 MG/ML INJ ONE (15:43)
[2020-09-06] MEDS ORDERED: HYDROCODONE/APAP 7.5/325 MG TAB ONE (15:43)
--- NOTE | 2020-09-06 17:01 | RAD REPORT ---
EXAM DESCRIPTION: CT - Spine Lumbar Wo Con - 09/06/2020 4:44 pm CLINICAL HISTORY: Radiculopathy. Lower back pain;Pain;Numbness/tingling COMPARISON: No comparisons TECHNIQUE: Axial noncontrast CT imaging of the lumbar spine was performed with coronal and sagittal re-formatted images. All CT scans are performed using dose optimization technique as appropriate and may include automated exposure control or mA/KV adjustment according to patient size. FINDINGS: No acute lumbar spine fracture seen. No aggressive marrow pattern or malalignment. Paraspinal tissues are normal in thickness. No paraspinal abscess or hematoma seen. Disc thinning with posterior disc bulge and posterior element hypertrophy seen lower lumbar spine. No high-grade canal stenosis is evident. 5 mm left renal stone is noted. IMPRESSION: No acute lumbar spine finding. Mild to moderate lower lumbar degenerative spondylosis. 5 mm left renal stone without hydronephrosis.
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
[2020-09-06 18:09] VITALS: BP 92/74; TEMP 98.2; O2SAT 97
== END 2020-09-06 17:50 | disposition home or self-care (01) ==
LOC: ER 12:52
DX: M54.32 Sciatica, left side (principal); I10 Essential (primary) hypertension; F31.9 Bipolar disorder, unspecified; I25.2 Old myocardial infarction; Z79.82 Long term (current) use of aspirin; Z91.018 Allergy to other foods; Z91.040 Latex allergy status; Z91.048 Other nonmedicinal substance allergy status
CPT/HCPCS: 72131; J2930; J2800

== ENCOUNTER 2021-01-15 11:57 | Emergency (ER) | payer OTHER ==
[2021-01-15] MEDS ORDERED: HYDROCODONE/APAP 10/325 TAB ONE (13:03)
--- NOTE | 2021-01-15 13:29 | RAD REPORT ---
EXAM DESCRIPTION: US - Extremity Venous Uni Ltd - 01/15/2021 1:05 pm CLINICAL HISTORY: Pain and swelling COMPARISON: None. TECHNIQUE: Real-time sonographic evaluation of the left lower extremity deep venous system was perfo rmed. FINDINGS: Normal compressibility, flow augmentation, phasic flow and spontaneous flow is identified in the left lower extremity deep venous system. No intraluminal filling defects seen. IMPRESSION: No DVT in the left lower extremity.
--- NOTE | 2021-01-15 14:11 | RAD REPORT ---
EXAM DESCRIPTION: RAD - Ankle Left 3 View - 01/15/2021 1:59 pm CLINICAL HISTORY: PAIN COMPARISON: No comparisons FINDINGS: No acute fracture. No malalignment. No significant focal degenerative changes. IMPRESSION: No acute osseous abnormality involving the left ankle.
--- NOTE | 2021-01-15 14:11 | RAD REPORT ---
EXAM DESCRIPTION: RAD - Foot Left 3 View - 01/15/2021 1:59 pm CLINICAL HISTORY: PAIN COMPARISON: Foot Left 3 View dated 09/23/2019 FINDINGS: No acute fracture. No malalignment. No significant focal degenerative changes. IMPRESSION: No acute osseous abnormality involving the left foot.
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
[2021-01-15 17:16] VITALS: TEMP 98
[2021-01-15 17:18] VITALS: BP 110/77; O2SAT 95
== END 2021-01-15 14:53 | disposition home or self-care (01) ==
LOC: ER 11:57
DX: M25.572 Pain in left ankle and joints of left foot (principal); I10 Essential (primary) hypertension; F17.210 Nicotine dependence, cigarettes, uncomplicated; Z91.018 Allergy to other foods; Z91.040 Latex allergy status; Z91.048 Other nonmedicinal substance allergy status
CPT/HCPCS: 93971; 99283

== ENCOUNTER 2021-03-23 13:18 | Emergency (ER) | payer OTHER ==
--- OUTSIDE RECORDS SUMMARY | 2021-03-23 13:26 | XMS REPORT | Continuity of Care Document ---
:1970 Author Organization [facility] t Address [address] [place] [address] Care Team Providers Name Role Phone MAGDALENA VIDALES Primary Care Physician Unavailable ALEX Attending Clinician Unavailable ALEX Attending Clinician Unavailable Julissa ARCINIEGA Attending Clinician Unavailable Pamella KO, G Attending Clinician JULIO C Attending Clinician Unavailable Julio C SHI Attending Clinician RADIOLOGY Attending Clinician Unavailable Radiology Attending Clinician Unavailable Therapist, Respiratory Attending Clinician Unavailable Julissa Matta MD Attending Clinician Julissa MATTA Attending Clinician Unavailable Alex SINGH Attending Clinician Doctor Unassigned, Name Attending Clinician Unavailable AJAY Attending Clinician Unavailable Ajay CIFUENTES Attending Clinician Goyo Ruth MD Attending Clinician Goyo RUTH Attending Clinician Unavailable Swift PAC, S Attending Clinician Keegan CIFUENTES Attending Clinician Dudley HUBBARD Attending Clinician Unavailable Tonie-Mbayo_A_AH Attending Clinician Unavailable Nnamdi Cavazos DO Attending Clinician ALEXANDRAREEN_VINNY Attending Clinician Unavailable Ashish CIFUENTES Attending Clinician ASHISH Attending Clinician Unavailable Laura POWERS, S Attending Clinician LAURA MULLEN Attending Clinician Unavailable YAO Admitting Clinician Unavailable AJAY Admitting Clinician Unavailable Tonie-Mbayo_A_AH Admitting Clinician Unavailable LEAH Admitting Clinician Unavailable LAURA MULLEN Admitting Clinician Unavailable Payers Payer Name Policy Type Policy Number Effective Date Expiration Date S kerry [employer] [place] [id number] 2019 CLASSIC/VALUE 00:00:00 [place]ID [place] [id number] 2019 00:00:00 WELLCARE [facility] [id number] 2019 [place] (MEDICARE 00:00:00 REPLACEMENT/ADVANTA GE - HMO) WELLCARE [id number] 2019 HEALTHPLANS 00:00:00 (MEDICARE REPLACEMENT [place]) [place] ACS - [id number] TMHP - TRADITIONAL Advance Directives Directive Decision Effective Termination Comments Source Date Date Healthcare Agents on N/A [facility] ersity FileNameRelationshipHealParkland Memorial Hospital Agent Medical RelationshipCommunicationHialeah Hospital Jayda RayshawnSaint Al[facility]ons[facility] [phone] (Mobile) [email or web address] Problems Condition Condition Condition Status Onset Resolution Last Treating Co mments Source Name Details Category Date Date Treatment Clinician Date Mild major Mild Major Problem Active [facility] ill[facility] depression Depression 4-18 Fa johan , single , Single 00:00: Practi c episode Episode 00 e Hyperlipid Hyperlipid Problem Active M helenar emia emia 12-05 da [facility]: [facility] Migraine Migraine Problem Active 2019-0 [place] 9[place] [place] [facility] Nuclear Nuclear Problem Active [place] sclerotic Sclerotic 9-15 da cataract Cataract 00:00: [facility] Total, Total, Problem Active [place] mature Mature 9-15 da senile Senile 00:00: [facility] cataract Cataract 00 [facility] Acute Acute Problem Active [place] conjunctiv Conjunctiv 9-15 da itis itis 00:00: [facility] Essential Essential Problem Active [place] hypertensi Hypertensi 9-15 da on on 00:00: [facility] Chronic Chronic Problem Active [place] obstructiv Obstructiv 9-15 da e lung e Lung 00:00: [facility] disease Disease 00 al [facility] Postoperat Postoperat Problem Active 2019-0 [place] frank visit frank Visit 9-15 da 00:00: [facility] Pseudophak Pseudophak Problem Active 2020-0 [place] of [place] of 9-15 da right eye 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 Hyperchole Hyperchole Problem Active 0 V illage sterolemia sterolemia 4-15 Fa johan 00:00: Practic 00 e Chronic Chronic Problem Active 2019-0 [facility] back pain Back Pain 4-15 Fami ly 00:00: Practic 00 e Anxiety Anxiety Problem Active 2019-0 [place] 4-14 Family 00:00: Practic 00 e Mild Mild Problem Active 2019-0 [facility] chronic Chronic 4-14 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 Obstructiv 00:00: Pr actic e e 00 e pulmonary Pulmonary disease Disease Prediabete Prediabete Problem Active 0 V illage s s 4-14 Family 00:00: Practic 00 e No known No known Disease Unive rs active active ity of problems problems [facility] Allergies, Adverse Reactions, Alerts Allergy Allergy Status Severity Reaction(s) Onset Inactive Treating Comm ents Source Name Type Date Date Clinician VENLAFAX DRUG Active Dizziness Unive rs INE INGREDI 10-17 ity of 00:00: [place] 00 Medical Branch Venlafax Propensi Active Dizziness Uni vers ine ty to 10-17 ity of adverse 00:00: [place] reaction 00 Medical s to Branch drug ADHESIVE DRUG Active Unknown-Cmnt Un bam TAPE-DEEDEE 04-15 ity of ICONES 00:00: [place] 00 Medical Branch LATEX DRUG Active Unknown-Cmnt 2019-0 Univ ers INGREDI 04-15 ity of 00:00: [place] 00 Medical Branch Adhesive Propensi Active Unknown - 0 Uni vers Tape-Deedee ty to See comments 04-15 it y of icones adverse 00:00: [place] reaction 00 Medical s Branch Latex Propensi Active Unknown - 2019-0 Unive rs ty to See comments 04-15 ity of adverse 00:00: [place] reaction 00 Medical s Branch Hydrocod Propensi Active Dizziness 2017-03 Uni vers one-Acet ty to 0-01 ity of aminophe adverse 00:00: [place] n reaction 00 Medical s Branch Hydrocod Propensi Active Rash Other Univer s one-Acet ty to 9 reaction( ity o f aminophe adverse 00:00: s[place] reaction 00 (see Medical s comments) Branch HYDROCOD DRUG Active High Dizziness Unive rs ONE-ACET 9-06 ity of AMINOPHE 00:00: [place] N 00 Medical Branch HYDROCOD Allergy Active High Rash [facility] ONE-ACET 9-06 [facility] AMINOPHE 00:00: Medical N 00 Center ADHESIVE Allergy Active [place] TAPE to da substanc [facility] Latex Allergy Active [place] to da substanc [facility] Social History Social Habit Start Date Stop Date Quantity Comments Source Exposure to Not sure [facility] SARS-CoV-2 (event) Medica l Branch Tobacco use and 2019-04-21 2019-04-21 Never used [facility] exposure 00:00:00 00:00:00 Medical Branch Sex [birth year] [facility] 00:00:00 00:00:00 Medical Branch Smoking Status Start Date Stop Date Source Heavy Tobacco Smoker [facility] Current every day smoker 2019-04-21 00:00:00 [facility] Medications Ordered Filled Start Stop Current Ordering Indication Dosage Frequency Signature Comments Components Source Medication Medication Date Date Medication? Clinician (SIG) Name Name predniSONE 2020-03- Yes [id number] 40mg Take 2 Univers 20 mg 05-02 9100 tablets by ity of tablet 00:00: 05:59 mouth [place] 00 :00 daily for Medical 5 days. Branch acetaminoph 2020-03- No 1{tbl} 1 tablet, Univers en-codeine 05-01 Oral, ity of (TYLENOL 20:00: 19:20 ONCE, 1 [place] #3) 300-30 00 :00 dose, On Medic al mg tablet [address] [facility] Branch tablet 02/28/21 at 1400, REINA ketorolac 2020-03- No 60mg 60 mg, Unive rs (TORADOL) 05-01 Intramuscu ity of injection 20:00: 19:20 [place]CE, [place] 60 mg 00 :00 1 dose, On Medical Sujatha Branch 02/28/21 at 1400, REINA dexamethaso 2020-03- No 10mg 10 mg, Uni vers ne 05-01 Intramuscu ity of (DECADRON 20:00: 19:20 [place], [place]CE, [place] PHOSPHATE) 00 :00 1 dose, On Med ical injection [facility] Branch 10 mg 02/28/21 at 1400, STAT ibuprofen 2020-03 Yes [id number] 800mg Take 1 Univers 800 mg 2-00 tablet by ity of tablet 00:00: mouth [place] 00 every 8 Medical (eight) Branch hours as needed for Pain (scale 4-6). ibuprofen 2020-03 Yes [id number] 800mg Take 1 Univers 800 mg 2- 9100 tablet by ity of tablet 00:00: mouth [place] 00 every 8 Medical (eight) Branch hours as needed for Pain (scale 4-6). acetaminoph 2020-03- Yes [id number] 1{tbl} Take 1 U nivers en-codeine 05-01 tablet by ity of 300-30 mg 00:00: 05:59 mouth [place] tablet 00 :00 every 6 Medical (six) Branch hours as needed for Pain (scale 7-10) for up to 7 days. Indication s: acute pain HYDROcodone 2020-03- No 1{tbl} 1 tablet, Univers -acetaminop 0-29 10-29 Oral, ity of hen (NORCO 21:15: 20:44 ONCE, 1 [place] as 5) 5-325 mg 00 :00 dose, On Medi eloy tablet 1 Fri Branch tablet 01/18/21 at 1615, REINA ibuprofen 2020-03 Yes [id number] 600mg Take 1 Univers 600 mg 0-29 [id number] tablet by ity of tablet 00:00: mouth [place] 00 every 6 Medical (six) Branch hours as needed for Pain (scale 4-6). ibuprofen 2020-03 Yes [id number] 600mg Take 1 Univers 600 mg 0-29 [id number] tablet by ity of tablet 00:00: mouth [place] 00 every 6 Medical (six) Branch hours as needed for Pain (scale 4-6). ibuprofen 2020-03 Yes [id number] 600mg Take 1 Univers 600 mg 0-29 [id number] tablet by ity of tablet 00:00: mouth [place] 00 every 6 Medical (six) Branch hours as needed for Pain (scale 4-6). ibuprofen 2020-03 Yes [id number] 600mg Take 1 Univers 600 mg 0-29 [id number] tablet by ity of tablet 00:00: mouth [place] 00 every 6 Medical (six) Branch hours as needed for Pain (scale 4-6). ibuprofen 2020-03 Yes [id number] 600mg Take 1 Univers 600 mg 0-29 [id number] tablet by ity of tablet 00:00: mouth [place] 00 every 6 Medical (six) Branch hours as needed for Pain (scale 4-6). ibuprofen 2020-03 Yes [id number] 600mg Take 1 Univers 600 mg 0-29 [id number] tablet by ity of tablet 00:00: mouth [place] 00 every 6 Medical (six) Branch hours as needed for Pain (scale 4-6). ibuprofen 2020-03 Yes [id number] 600mg Take 1 Univers 600 mg 0-29 [id number] tablet by ity of tablet 00:00: mouth [place] 00 every 6 Medical (six) Branch hours as needed for Pain (scale 4-6). ibuprofen 2020-03 Yes [id number] 600mg Take 1 Univers 600 mg 0-29 [id number] tablet by ity of tablet 00:00: mouth [place] 00 every 6 Medical (six) Branch hours as needed for Pain (scale 4-6). ibuprofen 2020-03 Yes [id number] 600mg Take 1 Univers 600 mg 0-29 [id number] tablet by ity of tablet 00:00: mouth [place] 00 every 6 Medical (six) Branch hours as needed for Pain (scale 4-6). ibuprofen 2020-03 Yes [id number] 600mg Take 1 Univers 600 mg 0-29 [id number] tablet by ity of tablet 00:00: mouth [place] 00 every 6 Medical (six) Branch hours as needed for Pain (scale 4-6). ibuprofen 2020-03 Yes [id number] 600mg Take 1 Univers 600 mg 0-29 [id number] tablet by ity of tablet 00:00: mouth [place] 00 every 6 Medical (six) Branch hours as needed for Pain (scale 4-6). HYDROcodone 2020-03- Yes [id number] 1{tbl} Take 1 U nivers -acetaminop 0-29 11-06 tablet by it y of hen (NORCO) 00:00: 04:59 [place] 7.5-325 mg 00 :00 every 8 Medica l per tablet (eight) Branch hours as needed for Pain for up to 7 days. Indication s: acute pain citalopram Yes 40mg Take 40 mg U nivers 40 mg 9-16 by mouth ity of tablet 15:10: daily. [address] Branch citalopram Yes 40mg Take 40 mg U nivers 40 mg 9-16 by mouth ity of tablet 15:10: daily. [address] Branch citalopram Yes 40mg Take 40 mg U nivers 40 mg 9-16 by mouth ity of tablet 15:10: daily. [address] Branch citalopram Yes 40mg Take 40 mg U nivers 40 mg 9-16 by mouth ity of tablet 15:10: daily. [address] Branch citalopram Yes 40mg Take 40 mg U nivers 40 mg 9-16 by mouth ity of tablet 15:10: daily. [address] citalopram 0 Yes 40mg Take 40 mg U nivers 40 mg 9-16 by mouth ity of tablet 15:10: daily. [address] Branch citalopram 0 Yes 40mg Take 40 mg U nivers 40 mg 9-16 by mouth ity of tablet 15:10: daily. [address] citalopram 0 Yes 40mg Take 40 mg U nivers 40 mg 9-16 by mouth ity of tablet 15:10: daily. [address] citalopram 0 Yes 40mg Take 40 mg U nivers 40 mg 9-16 by mouth ity of tablet 15:10: daily. [address] citalopram 0 Yes 40mg Take 40 mg U nivers 40 mg 9-16 by mouth ity of tablet 15:10: daily. [address] citalopram Yes 40mg Take 40 mg U nivers 40 mg 9-16 by mouth ity of tablet 15:10: daily. [address] citalopram 0 Yes 40mg Take 40 mg U nivers 40 mg 9-16 by mouth ity of tablet 15:10: daily. [address] citalopram 0 Yes 40mg Take 40 mg U nivers 40 mg 9-16 by mouth ity of tablet 15:10: daily. [address] citalopram Yes 40mg Take 40 mg U nivers 40 mg 9-16 by mouth ity of tablet 15:10: daily. [address] citalopram 0 Yes 40mg Take 40 mg U nivers 40 mg 9-16 by mouth ity of tablet 15:10: daily. [address] risperiDONE 2020-2020- No 4mg Take 4 mg Univers 4 mg tablet 12-06 by mouth ity of 15:09: 00:00 every [place] 20 :00 evening. [facility] risperiDONE 2020-0 2020- No 4mg Take 4 mg Univers 4 mg tablet 12-06 by mouth ity of 15:09: 00:00 every [place] 20 :00 evening. [facility] risperiDONE 2020-2020- No 4mg Take 4 mg Univers 4 mg tablet 12-0616 by mouth ity of 15:09: 00:00 every [place] 20 :00 evening. Medical Branch risperiDONE 2020-0 202- No 4mg Take 4 mg Univers 4 mg tablet 12-06-16 by mouth ity of 15:09: 00:00 every [place] 20 :00 evening. Medical Branch propranoloL 2020-0 Yes 10mg Take 10 mg Univers 10 mg 9-16 by mouth 2 ity of tablet 14:47: (two) [place] 03 times Medical daily. Branch Cholecalcif 0 Yes 1{tbl} Take 1 Un bam sunday, 9-16 tablet by ity of Vitamin D3, 14:47: mouth. [place] 50 [place]cg 03 Medical (2,000 Branch unit) capsule propranoloL 2020-0 Yes 10mg Take 10 mg Univers 10 mg 9-16 by mouth 2 ity of tablet 14:47: (two) [place] 03 times Medical daily. Branch Cholecalcif 0 Yes 1{tbl} Take 1 Un bam sunday, 9-16 tablet by ity of Vitamin D3, 14:47: mouth. [place] 50 mcg 03 Medical (2,000 Branch unit) capsule propranoloL 2020-0 Yes 10mg Take 10 mg Univers 10 mg 9-16 by mouth 2 ity of tablet 14:47: (two) [place] 03 times Medical daily. Branch Cholecalcif 0 Yes 1{tbl} Take 1 Un bam sunday, 9-16 tablet by ity of Vitamin D3, 14:47: mouth. [place] 50 mcg 03 Medical (2,000 Branch unit) capsule propranoloL 2020-0 Yes 10mg Take 10 mg Univers 10 mg 9-16 by mouth 2 ity of tablet 14:47: (two) [place] 03 times Medical daily. Branch Cholecalcif 0 Yes 1{tbl} Take 1 Un bam sunday, 9-16 tablet by ity of Vitamin D3, 14:47: mouth. [place] 50 [place] 03 Medical (2,000 Branch unit) capsule propranoloL 2020-0 Yes 10mg Take 10 mg Univers 10 mg 9-16 by mouth 2 ity of tablet 14:47: (two) [place] 03 times Medical daily. Branch Cholecalcif 2020-0 Yes 1{tbl} Take 1 Un bam sunday, 9-16 tablet by ity of Vitamin D3, 14:47: mouth. [place] 50 [place] 03 Medical (2,000 Branch unit) capsule propranoloL 2021-0 Yes 10mg Take 10 mg Univers 10 mg 9-16 by mouth 2 ity of tablet 14:47: (two) [place] 03 times Medical daily. Branch Cholecalcif 2020-0 Yes 1{tbl} Take 1 Un bam sunday, 9-16 tablet by ity of Vitamin D3, 14:47: mouth. [place] 50 [place] 03 Medical (2,000 Branch unit) capsule propranoloL 2021-0 Yes 10mg Take 10 mg Univers 10 mg 9-16 by mouth 2 ity of tablet 14:47: (two) [place] 03 times Medical daily. Branch Cholecalcif 2020-0 Yes 1{tbl} Take 1 Un bam sunday, 9-16 tablet by ity of Vitamin D3, 14:47: mouth. [place] 50 [place] 03 Medical (2,000 Branch unit) capsule propranoloL 2021-0 Yes 10mg Take 10 mg Univers 10 mg 9-16 by mouth 2 ity of tablet 14:47: (two) [place] 03 times Medical daily. Branch Cholecalcif 2020-0 Yes 1{tbl} Take 1 Un bam sunday, 9-16 tablet by ity of Vitamin D3, 14:47: mouth. [place] 50 [place] 03 Medical (2,000 Branch unit) capsule propranoloL 2021-0 Yes 10mg Take 10 mg Univers 10 mg 9-16 by mouth 2 ity of tablet 14:47: (two) [place] 03 times Medical daily. Branch Cholecalcif 2020-0 Yes 1{tbl} Take 1 Un bam sunday, 9-16 tablet by ity of Vitamin D3, 14:47: mouth. [place] 50 [place] 03 Medical (2,000 Branch unit) capsule propranoloL 2021-0 Yes 10mg Take 10 mg Univers 10 mg 9-16 by mouth 2 ity of tablet 14:47: (two) [place] 03 times Medical daily. Branch Cholecalcif 202-0 Yes 1{tbl} Take 1 Un bam sunday, 9-16 tablet by ity of Vitamin D3, 14:47: mouth. [place] 50 [place] 03 Medical (2,000 Branch unit) capsule propranoloL 2021-0 Yes 10mg Take 10 mg Univers 10 mg 9-16 by mouth 2 ity of tablet 14:47: (two) [place] 03 times Medical daily. Branch Cholecalcif 2020-0 Yes 1{tbl} Take 1 Un bam sunday, 9-16 tablet by ity of Vitamin D3, 14:47: mouth. [place] 50 [place] 03 Medical (2,000 Branch unit) capsule propranoloL 2020-0 Yes 10mg Take 10 mg Univers 10 mg 9-16 by mouth 2 ity of tablet 14:47: (two) [place] 03 times Medical daily. Branch Cholecalcif 2020-0 Yes 1{tbl} Take 1 Un bam sunday, 9-16 tablet by ity of Vitamin D3, 14:47: mouth. [place] 50 [place] 03 Medical (2,000 Branch unit) capsule propranoloL 2020-0 Yes 10mg Take 10 mg Univers 10 mg 9-16 by mouth 2 ity of tablet 14:47: (two) [place] 03 times Medical daily. Branch Cholecalcif 0 Yes 1{tbl} Take 1 Un bam sunday, 9-16 tablet by ity of Vitamin D3, 14:47: mouth. [place] 50 [place]cg 03 Medical (2,000 Branch unit) capsule propranoloL 2020-0 Yes 10mg Take 10 mg Univers 10 mg 9-16 by mouth 2 ity of tablet 14:47: (two) [place] 03 times Medical daily. Branch Cholecalcif 0 Yes 1{tbl} Take 1 Un bam sunday, 9-16 tablet by ity of Vitamin D3, 14:47: mouth. [place] 50 [place]cg 03 Medical (2,000 Branch unit) capsule propranoloL 2020-0 Yes 10mg Take 10 mg Univers 10 mg 9-16 by mouth 2 ity of tablet 14:47: (two) [place] 03 times Medical daily. Branch Cholecalcif 2020-0 Yes 1{tbl} Take 1 Un bam sunday, 9-16 tablet by ity of Vitamin D3, 14:47: mouth. [place] 50 [place] 03 Medical (2,000 Branch unit) capsule doxycycline 2020-0 2020- No 100mg 100 mg, U nivers hyclate 810-21 Oral, ity of (Vibramycin 04:30: 03:34 [place], 1 [place] capsule 00 :00 dose, Sat Medic al 100 mg 10/20/20 at Branch 2330, REINA
Re ason for Anti-Infec tive: Documented Infection< br>Documen judit Infection Site: Skin / Soft Tissue
Duration of Therapy: Other (see Comments) Cholecalcif Yes 1{tbl} Take 1 Un bam sunday, 8-01 tablet by ity of Vitamin D3, 03:37: mouth. [place] 50 [place]cg 42 Medical (2,000 Branch unit) capsule Cholecalcif 0 Yes 1{tbl} Take 1 Un bam sunday, 8-01 tablet by ity of Vitamin D3, 03:37: mouth. [place] 50 [place]cg 42 Medical (2,000 Branch unit) capsule Cholecalcif 2020-0 Yes 1{tbl} Take 1 Un bam sunday, 8-01 tablet by ity of Vitamin D3, 03:37: mouth. [place] 50 [place]cg 42 Medical (2,000 Branch unit) capsule Cholecalcif 0 Yes 1{tbl} Take 1 Un bam sunday, 8-01 tablet by ity of Vitamin D3, 03:37: mouth. [place] 50 mcg 42 Medical (2,000 Branch unit) capsule Cholecalcif 0 Yes 1{tbl} Take 1 Un bam sunday, 8-01 tablet by ity of Vitamin D3, 03:37: mouth. [place] 50 mcg 42 Medical (2,000 Branch unit) capsule pravastatin 2020- No pravastati Univers 10 mg 10-21 n 10 mg ity of tablet 03:37: 00:00 tablet [place] 42 :00 Take 1 Medical tablet Branch every day by oral route. venlafaxine 2020- No 150mg Take 150 Univers XR 150 mg 10-21-31 mg by ity of 24 hr 03:19: 00:00 mouth [place] capsule 53 :00 daily. Medical Branch nitroglycer 2020- No .4mg Place 0.4 Univers in 0.4 mg 10-21 mg under ity o f sublingual 03:19: 00:00 the tongue [place] tablet 53 :00 every 5 Medical (five) Branch minutes as needed for Chest pain. atorvastati 2020- No 10mg Take 10 mg Univers n 10 mg 8-01 07-31 by mouth ity of tablet 03:19: 00:00 at [place] 53 :00 bedtime. Medical Branch cyclobenzap 2020- No 5mg Take 5 mg Univers rine 5 mg 10-21 by mouth 3 ity of tablet 03:19: 00:00 (three) [place] 53 :00 times Medical daily. Branch doxycycline 2020- No [id number] 100mg Take 1 Univers monohydrate 10-20 08-11 capsule by i ty of 100 mg 00:00: 04:59 mouth 2 [place] capsule 00 :00 (two) Medical times Branch daily for 10 days. doxycycline 2020- No [id number] 100mg Take 1 Univers monohydrate 10-20 08-11 capsule by i ty of 100 mg 00:00: 04:59 mouth 2 [place] capsule 00 :00 (two) Medical times Branch daily for 10 days. doxycycline 2020- No [id number] 100mg Take 1 Univers monohydrate 10-20-11 capsule by i ty of 100 mg 00:00: 04:59 mouth 2 [place] capsule 00 :00 (two) Medical times Branch daily for 10 days. doxycycline 2020- No [id number] 100mg Take 1 Univers monohydrate 10-20-11 capsule by i ty of 100 mg 00:00: 04:59 mouth 2 [place] capsule 00 :00 (two) Medical times Branch daily for 10 days. doxycycline 2020- No [id number] 100mg Take 1 Univers monohydrate 10-20 08-11 capsule by i ty of 100 mg 00:00: 04:59 mouth 2 [place] capsule 00 :00 (two) Medical times Branch daily for 10 days. doxycycline 2020- No [id number] 100mg Take 1 Univers monohydrate 10-20 08-11 capsule by i ty of 100 mg 00:00: 04:59 mouth 2 [place] capsule 00 :00 (two) Medical times Branch daily for 10 days. triamcinolo 2020- No [id number] Apply to [facility] ne 10-17 08-28 area(s) 2 ity of acetonide 00:00: 04:59 (two) [place] 0.1 % cream 00 :00 times Medical daily for Branch 30 days. triamcinolo 2020-2020- No [id number] Apply to [place] [address] 11-17 area(s) 2 ity of acetonide 00:00: 04:59 (two) [place] 0.1 % cream 00 :00 times Medical daily for Branch 30 days. triamcinolo 2020-2020- No [id number] Apply to [place] [address] 11-17 area(s) 2 ity of acetonide 00:00: 04:59 (two) [place] 0.1 % cream 00 :00 times Medical daily for Branch 30 days. triamcinolo 2020-2020- No [id number] Apply to [place] [address] area(s) 2 ity of acetonide 00:00: 04:59 (two) [place] 0.1 % cream 00 :00 times Medical daily for Branch 30 days. triamcinolo 2020-2020- No [id number] Apply to [place] [address] 11-17 area(s) 2 ity of acetonide 00:00: 04:59 (two) [place] 0.1 % cream 00 :00 times Medical daily for Branch 30 days. triamcinolo 2020-2020- No [id number] Apply to [place] [address] area(s) 2 ity of acetonide 00:00: 04:59 (two) [place] 0.1 % cream 00 :00 times Medical daily for Branch 30 days. triamcinolo 2020- No [id number] Apply to [place] [address] 11-17 area(s) 2 ity of acetonide 00:00: 04:59 (two) [place] 0.1 % cream 00 :00 times Medical daily for Branch 30 days. triamcinolo 2020-0 2020- No [id number] Apply to [place] [address] 11-17 area(s) 2 ity of acetonide 00:00: 04:59 (two) [place] 0.1 % cream 00 :00 times Medical daily for Branch 30 days. triamcinolo 2020-2020- No [id number] Apply to [place] [address] 11-17 area(s) 2 ity of acetonide 00:00: 04:59 (two) [place] 0.1 % cream 00 :00 times Medical daily for Branch 30 days. triamcinolo 2020- No [id number] Apply to [facility] 10-17 area(s) 2 ity of acetonide 00:00: 04:59 (two) [place] 0.1 % cream 00 :00 times Medical daily for Branch 30 days. triamcinolo 2020- No [id number] Apply to [facility] 10-17 area(s) 2 ity of acetonide 00:00: 04:59 (two) [place] 0.1 % cream 00 :00 times Medical daily for Branch 30 days. ALPRAZolam 0 Yes .25mg Take 0.25 U nivers 0.25 mg 7-23 mg by ity of tablet 00:00: mouth. [place] [facility] ALPRAZolam 0 Yes .25mg Take 0.25 U nivers 0.25 mg 7-23 mg by ity of tablet 00:00: mouth. [place] [facility] ALPRAZolam 0 Yes .25mg Take 0.25 U nivers 0.25 mg 7-23 mg by ity of tablet 00:00: mouth. [place] [facility] ALPRAZolam 0 Yes .25mg Take 0.25 U nivers 0.25 mg 7-23 mg by ity of tablet 00:00: mouth. [place] [facility] ALPRAZolam 0 Yes .25mg Take 0.25 U nivers 0.25 mg 7-23 mg by ity of tablet 00:00: mouth. [place] [facility] ALPRAZolam 0 Yes .25mg Take 0.25 U nivers 0.25 mg 7-23 mg by ity of tablet 00:00: mouth. [place] [facility] ALPRAZolam 0 Yes .25mg Take 0.25 U nivers 0.25 mg 7-23 mg by ity of tablet 00:00: mouth. [place] [facility] ALPRAZolam 0 Yes .25mg Take 0.25 U nivers 0.25 mg 7-23 mg by ity of tablet 00:00: mouth. [place] [facility] ALPRAZolam 0 Yes .25mg Take 0.25 U nivers 0.25 mg 7-23 mg by ity of tablet 00:00: mouth. [address] ALPRAZolam 0 Yes .25mg Take 0.25 U nivers 0.25 mg 7-23 mg by ity of tablet 00:00: mouth. [place] [facility] ALPRAZolam 0 Yes .25mg Take 0.25 U nivers 0.25 mg 7-23 mg by ity of tablet 00:00: mouth. [place] [facility] ALPRAZolam 0 Yes .25mg Take 0.25 U nivers 0.25 mg 7-23 mg by ity of tablet 00:00: mouth. [address] ALPRAZolam 0 Yes .25mg Take 0.25 U nivers 0.25 mg 7-23 mg by ity of tablet 00:00: mouth. 61 [address] ALPRAZolam 0 Yes .25mg Take 0.25 U nivers 0.25 mg 7-23 mg by ity of tablet 00:00: mouth. [address] ALPRAZolam 0 Yes .25mg Take 0.25 U nivers 0.25 mg 7-23 mg by ity of tablet 00:00: mouth. [address] ALPRAZolam 0 Yes .25mg Take 0.25 U nivers 0.25 mg 7-23 mg by ity of tablet 00:00: mouth. [address] ALPRAZolam 0 Yes .25mg Take 0.25 U nivers 0.25 mg 7-23 mg by ity of tablet 00:00: mouth. [address] ALPRAZolam 0 Yes .25mg Take 0.25 U nivers 0.25 mg 7-23 mg by ity of tablet 00:00: mouth. [address] ALPRAZolam 0 Yes .25mg Take 0.25 U nivers 0.25 mg 7-23 mg by ity of tablet 00:00: mouth. [address] ALPRAZolam 0 Yes .25mg Take 0.25 U nivers 0.25 mg 7-23 mg by ity of tablet 00:00: mouth. [address] predniSONE 2020-0 2021- No 60mg 60 mg, [facility] ers (DELTASONE) 7-20 07-20 Oral, ity of tablet 60 16:00: 15:13 [place], [place] dose, [facility] 10/09/20 at Branch 1100, [facility] loratadine 2020-0 Yes [id number] 10mg Take 1 [facility] 10 mg 7-20 tablet by ity of tablet 00:00: mouth [place] 00 daily. [facility] loratadine 2020-0 Yes [id number] 10mg Take 1 [facility] 10 mg 7-20 tablet by ity of tablet 00:00: mouth [place] 00 daily. [facility] loratadine 2020-0 Yes [id number] 10mg Take 1 [facility] 10 mg 7-20 tablet by ity of tablet 00:00: mouth [place] 00 daily. [facility] loratadine 2020-0 Yes [id number] 10mg Take 1 [facility] 10 mg 7-20 tablet by ity of tablet 00:00: mouth [place] 00 daily. [facility] loratadine 2020-0 Yes [id number] 10mg Take 1 [facility] 10 mg 7-20 tablet by ity of tablet 00:00: mouth [place] 00 daily. [facility] loratadine 2020-0 Yes [id number] 10mg Take 1 [facility] 10 mg 7-20 tablet by ity of tablet 00:00: mouth [place] 00 daily. [facility] loratadine 2020-0 Yes [id number] 10mg Take 1 [facility] 10 mg 7-20 tablet by ity of tablet 00:00: mouth [place] 00 daily. [facility] loratadine 2020-0 Yes [id number] 10mg Take 1 [facility] 10 mg 7-20 tablet by ity of tablet 00:00: mouth [place] 00 daily. [facility] loratadine 2020-0 Yes [id number] 10mg Take 1 [facility] 10 mg 7-20 tablet by ity of tablet 00:00: mouth [place] 00 daily. [facility] loratadine 2020-0 Yes [id number] 10mg Take 1 [facility] 10 mg 7-20 tablet by ity of tablet 00:00: mouth [place] 00 daily. [facility] loratadine 2020-0 Yes [id number] 10mg Take 1 [facility] 10 mg 7-20 tablet by ity of tablet 00:00: mouth [place] 00 daily. [facility] loratadine 2020-0 Yes [id number] 10mg Take 1 [facility] 10 mg 7-20 tablet by ity of tablet 00:00: mouth [place] 00 daily. Medical Branch loratadine 2020-2020- No [id number] 10mg Take 1 [facility] 10 mg 7-20 09-16 tablet by ity of tablet 00:00: 00:00 mouth [place] 00 :00 daily. Medical [facility] loratadine 2020-2020- No [id number] 10mg Take 1 [facility] 10 mg 7-20 09-16 tablet by ity of tablet 00:00: 00:00 mouth [place] 00 :00 daily. Medical [facility] loratadine 2020-2020- No [id number] 10mg Take 1 [facility] 10 mg 7-20 09-16 tablet by ity of tablet 00:00: 00:00 mouth [place] 00 :00 daily. Medical [facility] loratadine 2020-2020- No [id number] 10mg Take 1 [facility] 10 mg 7-20 09-16 tablet by ity of tablet 00:00: 00:00 mouth [place] 00 :00 daily. Medical Branch predniSONE 2020-2020- No [id number] 60mg Take 3 [facility] 20 mg 7-20 07-25 tablets by ity of tablet 00:00: 04:59 mouth [place] 00 :00 every Medical morning Branch for 4 days. albuterol Yes 2{puff} Inhale 2 U nivers 90 7-16 Puffs. ity of mcg/actuati 00:00: [place] on inhaler Medical Branch albuterol Yes 2{puff} Inhale 2 U nivers 90 7-16 Puffs. ity of mcg/actuati 00:00: [place] on inhaler Medical Branch albuterol Yes 2{puff} Inhale 2 U nivers 90 7-16 Puffs. ity of mcg/actuati 00:00: [place] on inhaler Medical Branch albuterol Yes 2{puff} Inhale 2 U nivers 90 7-16 Puffs. ity of mcg/actuati 00:00: [place] on inhaler Medical Branch albuterol Yes 2{puff} Inhale 2 U nivers 90 7-16 Puffs. ity of mcg/actuati 00:00: [place] on inhaler Medical Branch albuterol Yes 2{puff} Inhale 2 U nivers 90 7-16 Puffs. ity of mcg/actuati 00:00: on inhaler Medical Branch albuterol Yes 2{puff} Inhale 2 U nivers 90 7-16 Puffs. ity of mcg/actuati 00:00: on inhaler Medical Branch albuterol Yes 2{puff} Inhale 2 U nivers 90 7-16 Puffs. ity of mcg/actuati 00:00: on inhaler Medical Branch albuterol Yes 2{puff} Inhale 2 U nivers 90 7-16 Puffs. ity of mcg/actuati 00:00: [place] on inhaler Medical Branch albuterol Yes 2{puff} Inhale 2 U nivers 90 7-16 Puffs. ity of mcg/actuati 00:00: [place] on inhaler Medical Branch albuterol Yes 2{puff} Inhale 2 U nivers 90 7-16 Puffs. ity of mcg/actuati 00:00: [place] on inhaler Medical Branch albuterol Yes 2{puff} Inhale 2 U nivers 90 7-16 Puffs. ity of mcg/actuati 00:00: [place] on inhaler Medical Branch albuterol Yes 2{puff} Inhale 2 U nivers 90 7-16 Puffs. ity of mcg/actuati 00:00: [place] on inhaler Medical Branch albuterol Yes 2{puff} Inhale 2 U nivers 90 7-16 Puffs. ity of mcg/actuati 00:00: [place] on inhaler Medical Branch albuterol Yes 2{puff} Inhale 2 U nivers 90 7-16 Puffs. ity of mcg/actuati 00:00: [place] on inhaler Medical Branch albuterol Yes 2{puff} Inhale 2 U nivers 90 7-16 Puffs. ity of mcg/actuati 00:00: [place] on inhaler Medical Branch albuterol Yes 2{puff} Inhale 2 U nivers 90 7-16 Puffs. ity of mcg/actuati 00:00: [place] on inhaler 00 Medical Branch albuterol 2020-0 Yes 2{puff} Inhale 2 U nivers 90 7-16 Puffs. ity of mcg/actuati 00:00: [place] on inhaler Medical Branch albuterol 2020-0 Yes 2{puff} Inhale 2 U nivers 90 7-16 Puffs. ity of mcg/actuati 00:00: [place] on inhaler Medical Branch albuterol 2020-0 Yes 2{puff} Inhale 2 U nivers 90 7-16 Puffs. ity of mcg/actuati 00:00: [place] on inhaler 00 Medical Branch ibuprofen 2020-0 Yes [id number] 800mg Take 1 [facility] 800 mg 2-21 [id number] tablet by ity of tablet 00:00: mouth [place] 00 every 8 Medical (eight) Branch hours as needed for Pain (scale 4-6). ibuprofen 2020-0 Yes [id number] 800mg Take 1 [facility] 800 mg 2-21 [id number] tablet by ity of tablet 00:00: mouth every 8 Medical (eight) Branch hours as needed for Pain (scale 4-6). ibuprofen 2020-0 Yes [id number] 800mg Take 1 [facility] 800 mg 2-21 [id number] tablet by ity of tablet 00:00: mouth [place] every 8 Medical (eight) Branch hours as needed for Pain (scale 4-6). ibuprofen 2020-0 Yes [id number] 800mg Take 1 [facility] 800 mg 2-21 [id number] tablet by ity of tablet 00:00: mouth [place] every 8 Medical (eight) Branch hours as needed for Pain (scale 4-6). ibuprofen 2020-0 Yes [id number] 800mg Take 1 [facility] 800 mg 2-21 [id number] tablet by ity of tablet 00:00: mouth [place] every 8 Medical (eight) Branch hours as needed for Pain (scale 4-6). ibuprofen 2020-0 Yes [id number] 800mg Take 1 [facility] 800 mg 2-21 [id number] tablet by ity of tablet 00:00: mouth [place] 00 every 8 Medical (eight) Branch hours as needed for Pain (scale 4-6). ibuprofen 2020-0 Yes [id number] 800mg Take 1 [facility] 800 mg 2-21 [id number] tablet by ity of tablet 00:00: mouth [place] 00 every 8 Medical (eight) Branch hours as needed for Pain (scale 4-6). ibuprofen Yes [id number] 800mg Take 1 [facility] 800 mg 2-21 [id number] tablet by ity of tablet 00:00: mouth [place] 00 every 8 Medical (eight) Branch hours as needed for Pain (scale 4-6). ibuprofen Yes [id number] 800mg Take 1 [facility] 800 mg 2-21 [id number] tablet by ity of tablet 00:00: mouth [place] 00 every 8 Medical (eight) Branch hours as needed for Pain (scale 4-6). ibuprofen Yes [id number] 800mg Take 1 [facility] 800 mg 2-21 [id number] tablet by ity of tablet 00:00: mouth [place] 00 every 8 Medical (eight) Branch hours as needed for Pain (scale 4-6). ibuprofen 2020- No [id number] 800mg Take 1 [facility] 800 mg 2-21 07-31 [id number] tablet by ity o f tablet 00:00: 00:00 mouth [place] 00 :00 every 8 Medical (eight) Branch hours as needed for Pain (scale 4-6). HYDROcodone 2019-03 2020- No 1{tbl} 1 tablet, Univers -acetaminop -14 02-03 Oral, ity of hen (NORCO) 20:15: 19:20 [place]CE, 1 [place] 10-325 mg 00 :00 dose, Sat Medic al tablet 1 02/04/20 Branch tablet at 1415, Routine dexamethaso 2019-03- No 10mg 10 mg, Uni vers ne 04-0514 Intramuscu ity of (DECADRON 20:15: 19:20 [place], ONCE, [place] PHOSPHATE) 00 :00 1 dose, Medica l injection Sat Branch 10 mg 02/04/20 at 1415, STAT acetaminoph 2019-03 Yes [id number] 1{tbl} Take 1 Un bam en-codeine 1-14 tablet by ity of 300-30 mg 00:00: mouth [place] tablet 00 every 4 Medical (four) Branch hours as needed for Pain (scale 4-6). Indication s: acute pain ibuprofen 2019-03 Yes [id number] 600mg Take 1 [facility] 600 mg 1-14 tablet by ity of tablet 00:00: mouth [place] 00 every 8 Medical (eight) Branch hours as needed for Pain (scale 4-6). acetaminoph 2019-03 Yes [id number] 1{tbl} Take 1 Un bam en-codeine 1-14 tablet by ity of 300-30 mg 00:00: mouth [place] tablet 00 every 4 Medical (four) Branch hours as needed for Pain (scale 4-6). Indication s: acute pain ibuprofen 2019-03 Yes [id number] 600mg Take 1 [facility] 600 mg 1-14 tablet by ity of tablet 00:00: mouth [place] 00 every 8 Medical (eight) Branch hours as needed for Pain (scale 4-6). acetaminoph 2019-03 Yes [id number] 1{tbl} Take 1 Un bam en-codeine 1-14 tablet by ity of 300-30 mg 00:00: mouth [place] tablet 00 every 4 Medical (four) Branch hours as needed for Pain (scale 4-6). Indication s: acute pain ibuprofen 2019-03 Yes [id number] 600mg Take 1 [facility] 600 mg 1-14 tablet by ity of tablet 00:00: mouth [place] 00 every 8 Medical (eight) Branch hours as needed for Pain (scale 4-6). acetaminoph 2019-03 Yes [id number] 1{tbl} Take 1 Un bam en-codeine 1-14 tablet by ity of 300-30 mg 00:00: mouth [place] tablet 00 every 4 Medical (four) Branch hours as needed for Pain (scale 4-6). Indication s: acute pain ibuprofen 2019-03 Yes [id number] 600mg Take 1 [facility] 600 mg 1-14 tablet by ity of tablet 00:00: mouth [place] 00 every 8 Medical (eight) Branch hours as needed for Pain (scale 4-6). acetaminoph 2019-03 Yes [id number] 1{tbl} Take 1 Un bam en-codeine 1-14 tablet by ity of 300-30 mg 00:00: mouth [place] tablet 00 every 4 Medical (four) Branch hours as needed for Pain (scale 4-6). Indication s: acute pain ibuprofen 2019-03 Yes [id number] 600mg Take 1 [facility] 600 mg 1-14 tablet by ity of tablet 00:00: mouth [place] 00 every 8 Medical (eight) Branch hours as needed for Pain (scale 4-6). acetaminoph 2019-03 Yes [id number] 1{tbl} Take 1 Un bam en-codeine 1-14 tablet by ity of 300-30 mg 00:00: mouth [place] tablet 00 every 4 Medical (four) Branch hours as needed for Pain (scale 4-6). Indication s: acute pain ibuprofen 2019-03 Yes [id number] 600mg Take 1 [facility] 600 mg 1-14 tablet by ity of tablet 00:00: mouth [place] 00 every 8 Medical (eight) Branch hours as needed for Pain (scale 4-6). acetaminoph 2019-03 Yes [id number] 1{tbl} Take 1 Un bam en-codeine 1-14 tablet by ity of 300-30 mg 00:00: mouth [place] tablet 00 every 4 Medical (four) Branch hours as needed for Pain (scale 4-6). Indication s: acute pain ibuprofen 2019-03 Yes [id number] 600mg Take 1 [facility] 600 mg 1-14 tablet by ity of tablet 00:00: mouth [place] 00 every 8 Medical (eight) Branch hours as needed for Pain (scale 4-6). acetaminoph 2019-03 Yes [id number] 1{tbl} Take 1 Un bam en-codeine 1-14 tablet by ity of 300-30 mg 00:00: mouth [place] tablet 00 every 4 Medical (four) Branch hours as needed for Pain (scale 4-6). Indication s: acute pain ibuprofen 2019-03 Yes [id number] 600mg Take 1 [facility] 600 mg 1-14 tablet by ity of tablet 00:00: mouth [place] 00 every 8 Medical (eight) Branch hours as needed for Pain (scale 4-6). acetaminoph 2019-03 Yes [id number] 1{tbl} Take 1 Un bam en-codeine 1-14 tablet by ity of 300-30 mg 00:00: mouth [place] tablet 00 every 4 Medical (four) Branch hours as needed for Pain (scale 4-6). Indication s: acute pain ibuprofen 2019-03 Yes [id number] 600mg Take 1 [facility] 600 mg 1-14 tablet by ity of tablet 00:00: mouth [place] 00 every 8 Medical (eight) Branch hours as needed for Pain (scale 4-6). acetaminoph 2019-03 Yes [id number] 1{tbl} Take 1 Un bam en-codeine 1-14 tablet by ity of 300-30 mg 00:00: mouth [place] tablet 00 every 4 Medical (four) Branch hours as needed for Pain (scale 4-6). Indication s: acute pain ibuprofen 2019-03 Yes [id number] 600mg Take 1 [facility] 600 mg 1-14 tablet by ity of tablet 00:00: mouth [place] 00 every 8 Medical (eight) Branch hours as needed for Pain (scale 4-6). acetaminoph 2019-03 Yes [id number] 1{tbl} Take 1 Un bam en-codeine 1-14 tablet by ity of 300-30 mg 00:00: mouth [place] tablet 00 every 4 Medical (four) Branch hours as needed for Pain (scale 4-6). Indication s: acute pain ibuprofen 2019-03 Yes [id number] 600mg Take 1 [facility] 600 mg 1-14 tablet by ity of tablet 00:00: mouth [place] 00 every 8 Medical (eight) Branch hours as needed for Pain (scale 4-6). acetaminoph 2019-03 Yes [id number] 1{tbl} Take 1 Un bam en-codeine 1-14 tablet by ity of 300-30 mg 00:00: mouth [place] tablet 00 every 4 Medical (four) Branch hours as needed for Pain (scale 4-6). Indication s: acute pain ibuprofen 2019-03 Yes [id number] 600mg Take 1 [facility] 600 mg 1-14 tablet by ity of tablet 00:00: mouth [place] 00 every 8 Medical (eight) Branch hours as needed for Pain (scale 4-6). acetaminoph 2019-03 Yes [id number] 1{tbl} Take 1 Un bam en-codeine 1-14 tablet by ity of 300-30 mg 00:00: mouth [place] tablet 00 every 4 Medical (four) Branch hours as needed for Pain (scale 4-6). Indication s: acute pain ibuprofen 2019-03 Yes [id number] 600mg Take 1 [facility] 600 mg 1-14 tablet by ity of tablet 00:00: mouth [place] 00 every 8 Medical (eight) Branch hours as needed for Pain (scale 4-6). acetaminoph 2019-03 No [id number] 1{tbl} Take 1 U nivers en-codeine 1-14 07-31 tablet by ity of 300-30 mg 00:00: 00:00 mouth [place] tablet 00 :00 every 4 Medical (four) Branch hours as needed for Pain (scale 4-6). Indication s: acute pain ibuprofen 2019-2020- No [id number] 600mg Take 1 [facility] 600 mg 1-14 07-31 tablet by ity of tablet 00:00: 00:00 mouth [place] 00 :00 every 8 Medical (eight) Branch hours as needed for Pain (scale 4-6). cyclobenzap 2020-0 Yes 5mg Take 5 mg U nivers rine 5 mg 8-31 by mouth 3 ity of tablet 15:37: (three) [place] 07 times Medical daily. Branch cyclobenzap 2020-0 Yes 5mg Take 5 mg U nivers rine 5 mg 8-31 by mouth 3 ity of tablet 15:37: (three) [place] 07 times Medical daily. Branch cyclobenzap 2020-0 Yes 5mg Take 5 mg U nivers rine 5 mg 8-31 by mouth 3 ity of tablet 15:37: (three) [place] 07 times Medical daily. Branch cyclobenzap 2020-0 Yes 5mg Take 5 mg U nivers rine 5 mg 8-31 by mouth 3 ity of tablet 15:37: (three) [place] 07 times Medical daily. Branch cyclobenzap 2020-0 Yes 5mg Take 5 mg U nivers rine 5 mg 8-31 by mouth 3 ity of tablet 15:37: (three) [place] 07 times Medical daily. Branch cyclobenzap 2020-0 Yes 5mg Take 5 mg U nivers rine 5 mg 8-31 by mouth 3 ity of tablet 15:37: (three) [place] 07 times Medical daily. Branch cyclobenzap 2020-0 Yes 5mg Take 5 mg U nivers rine 5 mg 8-31 by mouth 3 ity of tablet 15:37: (three) [place] 07 times Medical daily. Branch cyclobenzap 2020-0 Yes 5mg Take 5 mg U nivers rine 5 mg 8-31 by mouth 3 ity of tablet 15:37: (three) [place] 07 times Medical daily. Branch cyclobenzap 2020-0 Yes 5mg Take 5 mg U nivers rine 5 mg 8-31 by mouth 3 ity of tablet 15:37: (three) [place] 07 times Medical daily. Branch cyclobenzap 2020-0 Yes 5mg Take 5 mg U nivers rine 5 mg 8-31 by mouth 3 ity of tablet 15:37: (three) [place] 07 times Medical daily. Branch cyclobenzap 2020-0 Yes 5mg Take 5 mg U nivers rine 5 mg 8-31 by mouth 3 ity of tablet 15:37: (three) [place] 07 times Medical daily. Branch cyclobenzap 2020-0 Yes 5mg Take 5 mg U nivers rine 5 mg 8-31 by mouth 3 ity of tablet 15:37: (three) [place] 07 times Medical daily. Branch cyclobenzap 2020-0 Yes 5mg Take 5 mg U nivers rine 5 mg 8-31 by mouth 3 ity of tablet 15:37: (three) [place] 07 times Medical daily. Branch cyclobenzap 2020-0 Yes 5mg Take 5 mg U nivers rine 5 mg 8-31 by mouth 3 ity of tablet 15:37: (three) [place] 07 times Medical daily. Branch cyclobenzap 2020-0 Yes 5mg Take 5 mg U nivers rine 5 mg 8-31 by mouth 3 ity of tablet 15:37: (three) [place] 07 times Medical daily. Branch cyclobenzap 2020-0 Yes 5mg Take 5 mg U nivers rine 5 mg 8-31 by mouth 3 ity of tablet 15:37: (three) [place] 07 times Medical daily. Branch risperiDONE 2020-0 Yes 4mg Take 4 mg U nivers 4 mg tablet 8-31 by mouth ity of 15:36: every [place] 41 evening. Medical Branch risperiDONE 2020-0 Yes 4mg Take 4 mg U nivers 4 mg tablet 8-31 by mouth ity of 15:36: every [place] 41 evening. Medical Branch risperiDONE 2020-0 Yes 4mg Take 4 mg U nivers 4 mg tablet 8-31 by mouth ity of 15:36: every [place] 41 evening. Medical Branch risperiDONE 2020-0 Yes 4mg Take 4 mg U nivers 4 mg tablet 8-31 by mouth ity of 15:36: every [place] 41 evening. Medical Branch risperiDONE 2020-0 Yes 4mg Take 4 mg U nivers 4 mg tablet 8-31 by mouth ity of 15:36: every [place] 41 evening. Medical Branch risperiDONE 2020-0 Yes 4mg Take 4 mg U nivers 4 mg tablet 8-31 by mouth ity of 15:36: every [place] 41 evening. Medical Branch risperiDONE 2020-0 Yes 4mg Take 4 mg U nivers 4 mg tablet 8-31 by mouth ity of 15:36: every [place] 41 evening. Medical Branch risperiDONE 2020-0 Yes 4mg Take 4 mg U nivers 4 mg tablet 8-31 by mouth ity of 15:36: every [place] 41 evening. Medical Branch risperiDONE 2020-0 Yes 4mg Take 4 mg U nivers 4 mg tablet 8-31 by mouth ity of 15:36: every [place] 41 evening. Medical Branch risperiDONE 2020-0 Yes 4mg Take 4 mg U nivers 4 mg tablet 8-31 by mouth ity of 15:36: every [place] 41 evening. Medical Branch risperiDONE 2020-0 Yes 4mg Take 4 mg U nivers 4 mg tablet 8-31 by mouth ity of 15:36: every [place] 41 evening. Medical Branch risperiDONE 2020-0 Yes 4mg Take 4 mg U nivers 4 mg tablet 8-31 by mouth ity of 15:36: every [place] 41 evening. Medical Branch risperiDONE 2020-0 Yes 4mg Take 4 mg U nivers 4 mg tablet 8-31 by mouth ity of 15:36: every [place] 41 evening. Medical Branch risperiDONE 2020-0 Yes 4mg Take 4 mg U nivers 4 mg tablet 8-31 by mouth ity of 15:36: every [place] 41 evening. Medical Branch risperiDONE 2020-0 Yes 4mg Take 4 mg U nivers 4 mg tablet 8-31 by mouth ity of 15:36: every [place] 41 evening. Medical Branch risperiDONE 2020-0 Yes 4mg Take 4 mg U nivers 4 mg tablet 8-31 by mouth ity of 15:36: every [place] 41 evening. Medical Branch risperiDONE 2020-0 Yes 4mg Take 4 mg U nivers 4 mg tablet 8-31 by mouth ity of 15:36: every [place] 41 evening. Medical Branch risperiDONE 2020-0 Yes 4mg Take 4 mg U nivers 4 mg tablet 8-31 by mouth ity of 15:36: every [place] 41 evening. Medical Branch risperiDONE 2020-0 Yes 4mg Take 4 mg U nivers 4 mg tablet 8-31 by mouth ity of 15:36: every [place] 41 evening. Medical Branch risperiDONE 2020-0 Yes 4mg Take 4 mg U nivers 4 mg tablet 8-31 by mouth ity of 15:36: every [place] 41 evening. Medical Branch risperiDONE 2020-0 Yes 4mg Take 4 mg U nivers 4 mg tablet 8-31 by mouth ity of 15:36: every [place] 41 evening. Medical Branch risperiDONE 2020-0 Yes 4mg Take 4 mg U nivers 4 mg tablet 8-31 by mouth ity of 15:36: every [place] 41 evening. Medical Branch risperiDONE 2020-0 Yes 4mg Take 4 mg U nivers 4 mg tablet 8-31 by mouth ity of 15:36: every [place] 41 evening. Medical Branch atorvastati 2020-0 Yes 10mg Take 10 mg [facility] n 10 mg 8-31 by mouth ity of tablet 15:35: at [place] [address] bedtime. Medical Branch atorvastati 2020-0 Yes 10mg Take 10 mg [facility] n 10 mg 8-31 by mouth ity of tablet 15:35: at [place] [address] bedtime. Medical Branch atorvastati 2020-0 Yes 10mg Take 10 mg [facility] n 10 mg 8-31 by mouth ity of tablet 15:35: at [place] [address] bedtime. Medical Branch atorvastati 2020-0 Yes 10mg Take 10 mg [facility] n 10 mg 8-31 by mouth ity of tablet 15:35: at [place] [address] bedtime. Medical Branch atorvastati 2020-0 Yes 10mg Take 10 mg [facility] n 10 mg 8-31 by mouth ity of tablet 15:35: at [place] [address] bedtime. Medical Branch atorvastati 2020-0 Yes 10mg Take 10 mg Univers n 10 mg 8-31 by mouth ity of tablet 15:35: at [place] [address] bedtime. Medical Branch atorvastati 2020-0 Yes 10mg Take 10 mg [facility] n 10 mg 8-31 by mouth ity of tablet 15:35: at [place] [address] bedtime. Medical Branch atorvastati 2020-0 Yes 10mg Take 10 mg Univers n 10 mg 8-31 by mouth ity of tablet 15:35: at [place] [address] bedtime. Medical Branch atorvastati 2020-0 Yes 10mg Take 10 mg [facility] n 10 mg 8-31 by mouth ity of tablet 15:35: at [place] [address] bedtime. Medical Branch atorvastati 2020-0 Yes 10mg Take 10 mg [facility] n 10 mg 8-31 by mouth ity of tablet 15:35: at [place] [address] bedtime. Medical Branch atorvastati 2020-0 Yes 10mg Take 10 mg Univers n 10 mg 8-31 by mouth ity of tablet 15:35: at [place] [address] bedtime. Medical Branch atorvastati 2020-0 Yes 10mg Take 10 mg [facility] n 10 mg 8-31 by mouth ity of tablet 15:35: at [place] [address] bedtime. Medical Branch atorvastati 2020-0 Yes 10mg Take 10 mg Univers n 10 mg 8-31 by mouth ity of tablet 15:35: at [place] 57 bedtime. Medical Branch atorvastati 2020-0 Yes 10mg Take 10 mg Univers n 10 mg 8-31 by mouth ity of tablet 15:35: at [place] [address] bedtime. Medical Branch atorvastati 2020-0 Yes 10mg Take 10 mg Univers n 10 mg 8-31 by mouth ity of tablet 15:35: at [place] [address] bedtime. Medical Branch atorvastati 2020-0 Yes 10mg Take 10 mg Univers n 10 mg 8-31 by mouth ity of tablet 15:35: at [place] [address] bedtime. Medical Branch rosuvastati 2020-0 2020- No 10mg Take 10 mg [facility] n 10 mg 8-31 08-31 by mouth. ity of tablet 15:35: 00:00 [place] 49 :00 Medical Branch rosuvastati 2020-0 2020- No 10mg Take 10 mg Univers n 10 mg 8-31 08-31 by mouth. ity of tablet 15:35: 00:00 [place] 49 :00 Medical Branch aspirin 81 2020-0 Yes 81mg Take 81 mg U nivers mg EC 8-31 by mouth. ity of tablet 15:35: [place] 36 Medical Branch propranoloL 2020-0 Yes 10mg Take 10 mg Univers 10 mg 8-31 by mouth 2 ity of tablet 15:35: (two) [place] 36 times Medical daily. Branch aspirin 81 2020-0 Yes 81mg Take 81 mg U nivers mg EC 8-31 by mouth. ity of tablet 15:35: [place] 36 Medical Branch propranoloL 2020-0 Yes 10mg Take 10 mg [facility] 10 mg 8-31 by mouth 2 ity of tablet 15:35: (two) [place] 36 times Medical daily. Branch aspirin 81 2020-0 Yes 81mg Take 81 mg U nivers mg EC 8-31 by mouth. ity of tablet 15:35: [place] 36 Medical Branch propranoloL 2020-0 Yes 10mg Take 10 mg [facility] 10 mg 8-31 by mouth 2 ity of tablet 15:35: (two) [place] 36 times Medical daily. Branch aspirin 81 2020-0 Yes 81mg Take 81 mg U nivers mg EC 8-31 by mouth. ity of tablet 15:35: [place] 36 Medical Branch aspirin 81 2020-0 Yes 81mg Take 81 mg U nivers mg EC 8-31 by mouth. ity of tablet 15:35: [address] Branch propranoloL 2020-0 Yes 10mg Take 10 mg [facility] 10 mg 8-31 by mouth 2 ity of tablet 15:35: (two) [place] 36 times Medical daily. Branch aspirin 81 2020-0 Yes 81mg Take 81 mg U nivers mg EC 8-31 by mouth. ity of tablet 15:35: [address] propranoloL 2020-0 Yes 10mg Take 10 mg [facility] 10 mg 8-31 by mouth 2 ity of tablet 15:35: (two) [place] 36 times Medical daily. Branch aspirin 81 2020-0 Yes 81mg Take 81 mg U nivers mg EC 8-31 by mouth. ity of tablet 15:35: [address] propranoloL 2020-0 Yes 10mg Take 10 mg [facility] 10 mg 8-31 by mouth 2 ity of tablet 15:35: (two) [place] 36 times Medical daily. Branch aspirin 81 2020-0 Yes 81mg Take 81 mg U nivers mg EC 8-31 by mouth. ity of tablet 15:35: [address] propranoloL 2020-0 Yes 10mg Take 10 mg [facility] 10 mg 8-31 by mouth 2 ity of tablet 15:35: (two) [place] 36 times Medical daily. Branch aspirin 81 2020-0 Yes 81mg Take 81 mg U nivers mg EC 8-31 by mouth. ity of tablet 15:35: [address] propranoloL 2020-0 Yes 10mg Take 10 mg [facility] 10 mg 8-31 by mouth 2 ity of tablet 15:35: (two) [place] 36 times Medical daily. Branch aspirin 81 2020-0 Yes 81mg Take 81 mg U nivers mg EC 8-31 by mouth. ity of tablet 15:35: [address] propranoloL 2020-0 Yes 10mg Take 10 mg [facility] 10 mg 8-31 by mouth 2 ity of tablet 15:35: (two) [place] 36 times Medical daily. Branch aspirin 81 2020-0 Yes 81mg Take 81 mg U nivers mg EC 8-31 by mouth. ity of tablet 15:35: [address] propranoloL 2020-0 Yes 10mg Take 10 mg [facility] 10 mg 8-31 by mouth 2 ity of tablet 15:35: (two) [place] 36 times Medical daily. Branch aspirin 81 2020-0 Yes 81mg Take 81 mg U nivers mg EC 8-31 by mouth. ity of tablet 15:35: [place] [address] Medical Branch propranoloL 2020-0 Yes 10mg Take 10 mg [facility] 10 mg 8-31 by mouth 2 ity of tablet 15:35: (two) [place] 36 times Medical daily. Branch aspirin 81 2020-0 Yes 81mg Take 81 mg U nivers mg EC 8-31 by mouth. ity of tablet 15:35: [place] [address] Medical Branch propranoloL 2020-0 Yes 10mg Take 10 mg [facility] 10 mg 8-31 by mouth 2 ity of tablet 15:35: (two) [place] 36 times Medical daily. Branch aspirin 81 2020-0 Yes 81mg Take 81 mg U nivers mg EC 8-31 by mouth. ity of tablet 15:35: [address] Branch propranoloL 2020-0 Yes 10mg Take 10 mg [facility] 10 mg 8-31 by mouth 2 ity of tablet 15:35: (two) [place] 36 times Medical daily. Branch aspirin 81 2020-0 Yes 81mg Take 81 mg U nivers mg EC 8-31 by mouth. ity of tablet 15:35: [address] Branch propranoloL 2020-0 Yes 10mg Take 10 mg [facility] 10 mg 8-31 by mouth 2 ity of tablet 15:35: (two) [place] 36 times Medical daily. Branch aspirin 81 2020-0 Yes 81mg Take 81 mg U nivers mg EC 8-31 by mouth. ity of tablet 15:35: [address] propranoloL 2020-0 Yes 10mg Take 10 mg [facility] 10 mg 8-31 by mouth 2 ity of tablet 15:35: (two) [place] 36 times Medical daily. Branch aspirin 81 2020-0 Yes 81mg Take 81 mg U nivers mg EC 8-31 by mouth. ity of tablet 15:35: [address] Branch propranoloL 2020-0 Yes 10mg Take 10 mg [facility] 10 mg 8-31 by mouth 2 ity of tablet 15:35: (two) [place] 36 times Medical daily. Branch aspirin 81 2020-0 Yes 81mg Take 81 mg U nivers mg EC 8-31 by mouth. ity of tablet 15:35: [address] Branch propranoloL 2020-0 Yes 10mg Take 10 mg [facility] 10 mg 8-31 by mouth 2 ity of tablet 15:35: (two) [place] 36 times Medical daily. Branch aspirin 81 2020-0 Yes 81mg Take 81 mg U nivers mg EC 8-31 by mouth. ity of tablet 15:35: [address] propranoloL 2020-0 Yes 10mg Take 10 mg [facility] 10 mg 8-31 by mouth 2 ity of tablet 15:35: (two) [place] 36 times Medical daily. Branch aspirin 81 2020-0 Yes 81mg Take 81 mg U nivers mg EC 8-31 by mouth. ity of tablet 15:35: [address] propranoloL 2020-0 Yes 10mg Take 10 mg [facility] 10 mg 8-31 by mouth 2 ity of tablet 15:35: (two) [place] 36 times Medical daily. Branch aspirin 81 2020-0 Yes 81mg Take 81 mg U nivers mg EC 8-31 by mouth. ity of tablet 15:35: [address] propranoloL 2020-0 Yes 10mg Take 10 mg [facility] 10 mg 8-31 by mouth 2 ity of tablet 15:35: (two) [place] 36 times Medical daily. Branch aspirin 81 2020-0 Yes 81mg Take 81 mg U nivers mg EC 8-31 by mouth. ity of tablet 15:35: [address] propranoloL 2020-0 Yes 10mg Take 10 mg [facility] 10 mg 8-31 by mouth 2 ity of tablet 15:35: (two) [place] 36 times Medical daily. Branch aspirin 81 2020-0 Yes 81mg Take 81 mg U nivers mg EC 8-31 by mouth. ity of tablet 15:35: [address] propranoloL 2020-0 Yes 10mg Take 10 mg [facility] 10 mg 8-31 by mouth 2 ity of tablet 15:35: (two) [place] [id number] times Medical daily. Branch gabapentin 2020-0 2020- No 300mg Take 300 U nivers 100 mg 8-31 08-31 mg by ity of capsule 15:35: 00:00 mouth 4 [place] 15 :00 (four) [facility] times [place] daily. gabapentin 2020-0 2020- No 300mg Take 300 U nivers 100 mg 8-31 08-31 mg by ity of capsule 15:35: 00:00 mouth 4 [place] 15 :00 (four) Medical times [place] daily. carvedilol 2020-0 2020- No 12.5mg Take 12.5 [facility] 12.5 mg 8-31 08-31 mg by ity of tablet 15:35: 00:00 mouth 2 [place] 08 :00 (two) Medical times Branch daily. carvedilol 2020-0 2020- No 12.5mg Take 12.5 [facility] 12.5 mg 8-31 08-31 mg by ity of tablet 15:35: 00:00 mouth 2 [place] 08 :00 (two) Medical times Branch daily. venlafaxine 2020-0 Yes 150mg Take 150 U nivers XR 150 mg 8-31 mg by ity of 24 hr 15:27: mouth [place] capsule 24 daily. Medical Branch venlafaxine 2020-0 Yes 150mg Take 150 U nivers XR 150 mg 8-31 mg by ity of 24 hr 15:27: mouth [place] capsule 24 daily. Medical Branch venlafaxine 2020-0 Yes 150mg Take 150 U nivers XR 150 mg 8-31 mg by ity of 24 hr 15:27: mouth [place] capsule 24 daily. Medical Branch venlafaxine 2020-0 Yes 150mg Take 150 U nivers XR 150 mg 8-31 mg by ity of 24 hr 15:27: mouth [place] capsule 24 daily. Medical Branch venlafaxine 2020-0 Yes 150mg Take 150 U nivers XR 150 mg 8-31 mg by ity of 24 hr 15:27: mouth [place] capsule 24 daily. Medical Branch venlafaxine 2020-0 Yes 150mg Take 150 U nivers XR 150 mg 8-31 mg by ity of 24 hr 15:27: mouth [place] capsule 24 daily. Medical Branch venlafaxine 2020-0 Yes 150mg Take 150 U nivers XR 150 mg 8-31 mg by ity of 24 hr 15:27: mouth [place] capsule 24 daily. Medical Branch venlafaxine 2020-0 Yes 150mg Take 150 U nivers XR 150 mg 8-31 mg by ity of 24 hr 15:27: mouth [place] capsule 24 daily. Medical Branch venlafaxine 2020-0 Yes 150mg Take 150 U nivers XR 150 mg 8-31 mg by ity of 24 hr 15:27: mouth [place] capsule 24 daily. Medical Branch venlafaxine 2020-0 Yes 150mg Take 150 U nivers XR 150 mg 8-31 mg by ity of 24 hr 15:27: mouth [place] capsule 24 daily. Medical Branch venlafaxine 2020-0 Yes 150mg Take 150 U nivers XR 150 mg 8-31 mg by ity of 24 hr 15:27: mouth [place] capsule 24 daily. Medical Branch venlafaxine 2020-0 Yes 150mg Take 150 U nivers XR 150 mg 8-31 mg by ity of 24 hr 15:27: mouth [place] capsule 24 daily. Medical Branch venlafaxine 2020-0 Yes 150mg Take 150 U nivers XR 150 mg 8-31 mg by ity of 24 hr 15:27: mouth [place] capsule 24 daily. Medical Branch venlafaxine 2020-0 Yes 150mg Take 150 U nivers XR 150 mg 8-31 mg by ity of 24 hr 15:27: mouth [place] capsule 24 daily. Medical Branch venlafaxine 2020-0 Yes 150mg Take 150 U nivers XR 150 mg 8-31 mg by ity of 24 hr 15:27: mouth [place] capsule 24 daily. Medical Branch venlafaxine 2020-0 Yes 150mg Take 150 U nivers XR 150 mg 8-31 mg by ity of 24 hr 15:27: mouth [place] capsule 24 daily. Medical Branch venlafaxine 2020-0 Yes 150mg Take 150 U nivers XR 150 mg 8-31 mg by ity of 24 hr 15:27: mouth [place] capsule 24 daily. Medical Branch venlafaxine 2020-0 2020- No 150mg Take 150 Univers XR 150 mg 8-31 08-31 mg by ity of 24 hr 15:27: 00:00 mouth. [place] capsule 03 :00 Medical Branch venlafaxine 2020-0 2020- No 150mg Take 150 Univers XR 150 mg 8-31 08-31 mg by ity of 24 hr 15:27: 00:00 mouth. [place] capsule 03 :00 Medical Branch nitroglycer 2020-[address] 0.4 U nivers in 0.4 mg 8-31 mg under ity of sublingual 15:27: the tongue [place] tablet 01 every 5 Medical (five) Branch minutes as needed for Chest pain. nitroglycer 2020-[address] 0.4 U nivers in 0.4 mg 8-31 mg under ity of sublingual 15:27: the tongue [place] tablet 01 every 5 Medical (five) Branch minutes as needed for Chest pain. nitroglycer 2020-[address] 0.4 U nivers in 0.4 mg 8-31 mg under ity of sublingual 15:27: the tongue [place] tablet 01 every 5 Medical (five) Branch minutes as needed for Chest pain. nitroglycer 2020-[address] 0.4 U nivers in 0.4 mg 8-31 mg under ity of sublingual 15:27: the tongue [place] tablet 01 every 5 Medical (five) Branch minutes as needed for Chest pain. nitroglycer 2020-[address] 0.4 U nivers in 0.4 mg 8-31 mg under ity of sublingual 15:27: the tongue [place] tablet 01 every 5 Medical (five) Branch minutes as needed for Chest pain. nitroglycer 2020-[address] 0.4 U nivers in 0.4 mg 8-31 mg under ity of sublingual 15:27: the tongue [place] tablet 01 every 5 Medical (five) Branch minutes as needed for Chest pain. nitroglycer 2020-[address] 0.4 U nivers in 0.4 mg 8-31 mg under ity of sublingual 15:27: the tongue [place] tablet 01 every 5 Medical (five) Branch minutes as needed for Chest pain. nitroglycer 2020-[address] 0.4 U nivers in 0.4 mg 8-31 mg under ity of sublingual 15:27: the tongue [place] tablet 01 every 5 Medical (five) Branch minutes as needed for Chest pain. nitroglycer 2020-[address] 0.4 U nivers in 0.4 mg 8-31 mg under ity of sublingual 15:27: the tongue [place] tablet 01 every 5 Medical (five) Branch minutes as needed for Chest pain. nitroglycer 2020-[address] 0.4 U nivers in 0.4 mg 8-31 mg under ity of sublingual 15:27: the tongue [place] tablet 01 every 5 Medical (five) Branch minutes as needed for Chest pain. nitroglycer 2020-[address] 0.4 U nivers in 0.4 mg 8-31 mg under ity of sublingual 15:27: the tongue [place] tablet 01 every 5 Medical (five) Branch minutes as needed for Chest pain. nitroglycer 2020-[address] 0.4 U nivers in 0.4 mg 8-31 mg under ity of sublingual 15:27: the tongue [place] tablet 01 every 5 Medical (five) Branch minutes as needed for Chest pain. nitroglycer 2020-[address] 0.4 U nivers in 0.4 mg 8-31 mg under ity of sublingual 15:27: the tongue [place] tablet 01 every 5 Medical (five) Branch minutes as needed for Chest pain. nitroglycer 2020-[address] 0.4 U nivers in 0.4 mg 8-31 mg under ity of sublingual 15:27: the tongue [place] tablet 01 every 5 Medical (five) Branch minutes as needed for Chest pain. nitroglycer 2020-[address] 0.4 U nivers in 0.4 mg 8-31 mg under ity of sublingual 15:27: the tongue [place] tablet 01 every 5 Medical (five) Branch minutes as needed for Chest pain. nitroglycer 2020-[address] 0.4 U nivers in 0.4 mg 8-31 mg under ity of sublingual 15:27: the tongue [place] tablet 01 every 5 Medical (five) Branch minutes as needed for Chest pain. nitroglycer 2020-[address] 0.4 U nivers in 0.4 mg 8-31 mg under ity of sublingual 15:27: the tongue [place] tablet 01 every 5 Medical (five) Branch minutes as needed for Chest pain. RISPERIDONE 2020-0 2020- No 3mg Take 3 mg Univers ORAL 8- 08-31 by mouth ity of 15:26: 00:00 daily. [place] 54 :00 [facility] RISPERIDONE 2020-0 2020- No 3mg Take 3 mg Univers ORAL 8- 08-31 by mouth ity of 15:26: 00:00 daily. [place] 54 :00 [facility] gabapentin 2020-0 2020- No 300mg Take 300 U nivers 300 mg 8-31 08-31 mg by ity of capsule 15:26: 00:00 mouth. [place] 35 :00 [facility] gabapentin 2020-0 2020- No 300mg Take 300 U nivers 300 mg 8-31 08-31 mg by ity of capsule 15:26: 00:00 mouth. [place] 35 :00 [facility] Branch carvediloL 2020-0 2020- No 1{tbl} Take 1 Un bam 12.5 mg 8-31 08-31 tablet by ity of tablet 15:26: 00:00 mouth. [place] 22 :00 [facility] Branch carvediloL 2020-0 2020- No 1{tbl} Take 1 Un bam 12.5 mg 8-31 08-31 tablet by ity of tablet 15:26: 00:00 mouth. 22 :00 Medical Branch aspirin 81 2020-0 Yes 81mg Take 81 mg U nivers mg EC 8-31 by mouth. ity of tablet 10:35: [address] Branch aspirin 81 2020-0 Yes 81mg Take 81 mg U nivers mg EC 8-31 by mouth. ity of tablet 10:35: [address] Branch aspirin 81 2020-0 Yes 81mg Take 81 mg U nivers mg EC 8-31 by mouth. ity of tablet 10:35: [address] aspirin 81 2020-0 Yes 81mg Take 81 mg U nivers mg EC 8-31 by mouth. ity of tablet 10:35: [address] aspirin 81 2020-0 Yes 81mg Take 81 mg U nivers mg EC 8-31 by mouth. ity of tablet 10:35: [address] aspirin 81 2020-0 Yes 81mg Take 81 mg U nivers mg EC 8-31 by mouth. ity of tablet 10:35: [address] aspirin 81 2020-0 Yes 81mg Take 81 mg U nivers mg EC 8-31 by mouth. ity of tablet 10:35: [address] aspirin 81 2020-0 Yes 81mg Take 81 mg U nivers mg EC 8-31 by mouth. ity of tablet 10:35: [address] aspirin 81 2020-0 Yes 81mg Take 81 mg U nivers mg EC 8-31 by mouth. ity of tablet 10:35: [address] aspirin 81 2020-0 Yes 81mg Take 81 mg U nivers mg EC 8-31 by mouth. ity of tablet 10:35: [address] aspirin 81 2020-0 Yes 81mg Take 81 mg U nivers mg EC 8-31 by mouth. ity of tablet 10:35: [address] aspirin 81 2020-0 Yes 81mg Take 81 mg U nivers mg EC 8-31 by mouth. ity of tablet 10:35: [address] aspirin 81 2020-0 Yes 81mg Take 81 mg U nivers mg EC 8-31 by mouth. ity of tablet 10:35: [address] aspirin 81 2020-0 Yes 81mg Take 81 mg U nivers mg EC 8-31 by mouth. ity of tablet 10:35: [address] aspirin 81 2020-0 Yes 81mg Take 81 mg U nivers mg EC 8-31 by mouth. ity of tablet 10:35: [address] carvediloL 2020-0 Yes 1{tbl} Take 1 Uni vers 12.5 mg 1-30 tablet by ity of tablet 14:12: mouth. [address] gabapentin 2020-0 Yes 300mg Take 300 Un bam 300 mg 1-30 mg by ity of capsule 14:12: mouth. [address] risperiDONE 2020-0 Yes 3mg Take 3 mg U nivers 3 mg tablet 1-30 by mouth. ity of 14:12: [address] venlafaxine 2020-0 Yes 150mg Take 150 U nivers XR 150 mg 1-30 mg by ity of 24 hr 14:12: mouth. [address] carvediloL 2020-0 Yes 1{tbl} Take 1 Uni vers 12.5 mg 1-30 tablet by ity of tablet 14:12: mouth. [address] gabapentin 2020-0 Yes 300mg Take 300 Un bam 300 mg 1-30 mg by ity of capsule 14:12: mouth. [address] risperiDONE 2020-0 Yes 3mg Take 3 mg U nivers 3 mg tablet 1-30 by mouth. ity of 14:12: [address] venlafaxine 2020-0 Yes 150mg Take 150 U nivers XR 150 mg 1-30 mg by ity of 24 hr 14:12: mouth. [address] aspirin 81 2020-0 Yes 81mg Take 81 mg U nivers mg EC 1-30 by mouth. ity of tablet 14:12: [address] rosuvastati 2020-0 Yes 10mg Take 10 mg Univers n 10 mg 1-30 by mouth. ity of tablet 14:12: [address] aspirin 81 2020-0 Yes 81mg Take 81 mg U nivers mg EC 1-30 by mouth. ity of tablet 14:12: [address] rosuvastati 2020-0 Yes 10mg Take 10 mg [facility] n 10 mg 1-30 by mouth. ity of tablet 14:12: [place] 45 Medical Branch naproxen 2020-0 Yes TK 1 T PO Univ ers 500 mg - BID WF ity of tablet 00:00: [place] 00 Medical Branch traMADol 50 2020-0 Yes TK 1 T PO U nivers mg tablet - Q 8 H PRN ity o f 00:00: [place] 00 Medical Branch naproxen 2020-0 Yes TK 1 T PO Univ ers 500 mg - BID WF ity of tablet 00:00: [place] 00 Medical Branch traMADol 50 2020-0 Yes TK 1 T PO U nivers mg tablet 04-17 Q 8 H PRN ity o f 00:00: [place] 00 Medical Branch naproxen 2020-0 Yes TK 1 T PO Univ ers 500 mg - BID WF ity of tablet 00:00: [place] [address] Medical Branch naproxen 2020-0 Yes TK 1 T PO Univ ers 500 mg - BID WF ity of tablet 00:00: [place] [address] Medical Branch naproxen 2020-0 Yes TK 1 T PO Univ ers 500 mg - BID WF ity of tablet 00:00: [place] [address] Medical Branch naproxen 2020-0 Yes TK 1 T PO Univ ers 500 mg -26 BID WF ity of tablet 00:00: [place] [address] Medical Branch naproxen 2020-0 Yes TK 1 T PO Univ ers 500 mg - BID WF ity of tablet 00:00: [place] [address] Medical Branch naproxen 2020-0 Yes TK 1 T PO Univ ers 500 mg -26 BID WF ity of tablet 00:00: [place] [address] Medical Branch naproxen 2020-0 Yes TK 1 T PO Univ ers 500 mg - BID WF ity of tablet 00:00: [place] 00 Medical Branch naproxen 2020-0 Yes TK 1 T PO Univ ers 500 mg -26 BID WF ity of tablet 00:00: [place] [address] Medical Branch naproxen 2020-0 Yes TK 1 T PO Univ ers 500 mg -26 BID WF ity of tablet 00:00: [place] [address] Medical Branch naproxen 2020-0 Yes TK 1 T PO Univ ers 500 mg -26 BID WF ity of tablet 00:00: [place] [address] Medical Branch naproxen 2020-0 Yes TK 1 T PO Univ ers 500 mg 1-26 BID WF ity of tablet 00:00: [place] [address] Medical Branch naproxen 2020-0 Yes TK 1 T PO Univ ers 500 mg 04-17 BID WF ity of tablet 00:00: [place] 00 Medical Branch naproxen 2019-0 Yes TK 1 T PO Univ ers 500 mg 04-17 BID WF ity of tablet 00:00: [place] 00 Medical Branch naproxen 2019-0 Yes TK 1 T PO Univ ers 500 mg 04-17 BID WF ity of tablet 00:00: [place] 00 Medical Branch naproxen 2019-0 Yes TK 1 T PO Univ ers 500 mg 04-17 BID WF ity of tablet 00:00: [place] 00 Medical Branch naproxen 2019-0 Yes TK 1 T PO Univ ers 500 mg 04-17 BID WF ity of tablet 00:00: [place] 00 Medical Branch naproxen 2019-0 Yes TK 1 T PO Univ ers 500 mg 04-17 BID WF ity of tablet 00:00: [place] 00 Medical Branch naproxen 2019-0 202- No TK 1 T PO Uni vers 500 mg 04-17 BID WF ity of tablet 00:00: 00:00 [place] 00 :00 Medical Branch traMADol 50 2019-0 2020- No TK 1 T PO Univers mg tablet 04-17 Q 8 H PRN ity of 00:00: 00:00 [place] 00 :00 Medical Branch traMADol 50 2019-0 2020- No TK 1 T PO [facility] mg tablet 04-17 Q 8 H PRN ity of 00:00: 00:00 [place] 00 :00 Medical Branch gabapentin 2017-03 Yes 300mg Take 300 Un bam 100 mg 0-02 mg by ity of capsule 03:17: mouth 4 [place] 15 (four) Medical times Branch daily. carvedilol 2017-03 Yes 12.5mg Take 12.5 Univers 12.5 mg 0-02 mg by ity of tablet 03:17: mouth 2 [place] 15 (two) Medical times Branch daily. venlafaxine 2017-03 Yes 150mg Take 150 U nivers XR 150 mg 0-02 mg by ity of 24 hr 03:17: mouth [place] capsule 15 daily. Medical Branch nitroglycer 2017-[address] 0.4 U nivers in 0.4 mg 0-02 mg under ity of sublingual 03:17: the tongue [place] tablet 15 every 5 Medical (five) Branch minutes as needed for Chest pain. RISPERIDONE 2017-03 Yes 3mg Take 3 mg U nivers ORAL 0-02 by mouth ity of 03:17: daily. [place] [address] Medical Branch gabapentin 2017-03 Yes 300mg Take 300 Un bam 100 mg 0-02 mg by ity of capsule 03:17: mouth 4 [place] 15 (four) Medical times Branch daily. carvedilol 2017-03 Yes 12.5mg Take 12.5 Univers 12.5 mg 0-02 mg by ity of tablet 03:17: mouth 2 [place] [address] (two) Medical times Branch daily. venlafaxine 2017-03 Yes 150mg Take 150 U nivers XR 150 mg 0-02 mg by ity of 24 hr 03:17: mouth [place] capsule 15 daily. Medical Branch nitroglycer 2017-[address] 0.4 U nivers in 0.4 mg 0-02 mg under ity of sublingual 03:17: the tongue [place] tablet 15 every 5 Medical (five) Branch minutes as needed for Chest pain. RISPERIDONE 2017-03 Yes 3mg Take 3 mg U nivers ORAL 0-02 by mouth ity of 03:17: daily. [place] [address] Medical Branch gabapentin 2017-03 Yes 300mg Take 300 Un bam 100 mg 0-02 mg by ity of capsule 03:17: mouth 4 [place] [address] (four) Medical times Branch daily. carvedilol 2017-03 Yes 12.5mg Take 12.5 Univers 12.5 mg 0-02 mg by ity of tablet 03:17: mouth 2 [place] [address] (two) Medical times Branch daily. venlafaxine 2017-03 Yes 150mg Take 150 U nivers XR 150 mg 0-02 mg by ity of 24 hr 03:17: mouth [place] capsule 15 daily. Medical Branch nitroglycer 2017-[address] 0.4 U nivers in 0.4 mg 0-02 mg under ity of sublingual 03:17: the tongue [place] tablet 15 every 5 Medical (five) Branch minutes as needed for Chest pain. RISPERIDONE 2017-03 Yes 3mg Take 3 mg U nivers ORAL 0-02 by mouth ity of 03:17: daily. [address] Branch citalopram citalopram No 1 Q1D citalopram [place] [...] bedtime. atorvastati atorvastati No 1 Q1D atorvastat [facility] n 10 mg n 10 mg in 10 mg Famil y tablet Take tablet Take tablet Practic 1 tablet 1 tablet Take 1 e every day every day tablet by oral by oral every day route in route in by oral the the route in morning. morning. the morning. acetaminoph acetaminoph No acetaminop [place] en 300 [...] T PO QD 1 T PO QD [facility] Banophen 25 Banophen 25 No Banophen [place] mg capsule mg capsule 25 mg da TK 1 C PO TK 1 C PO capsule TK [facility] T[facility] FOR 7 TID FOR 7 1 C PO TID al DAYS PRF DAYS PRF FOR 7 DAYS H ealt ALLERGY ALLERGY PRF Outreac SYMPTOMS. SYMPTOMS. ALLERGY [...] eye drops eye drops eye drops [facility] citalopram citalopram No citalopram [place] 20 mg 20 mg 20 mg da tablet tablet tablet [facility] cyclobenzap cyclobenzap No cyclobenza [place] rine 10 mg rine 10 mg charito 10 da tablet tablet mg tablet [facility] cyclobenzap cyclobenzap No cyclobenza [place] rine 5 mg rine 5 mg charito 5 mg da tablet tablet tablet [facility] diclofenac diclofenac No diclofenac [place] 1 % topical 1 % topical 1 % d a gel gel topical [facility] gel [facility] gabapentin gabapentin No gabapentin [place] 600 mg 600 mg 600 mg da tablet tablet tablet [facility] ibuprofen ibuprofen No ibuprofen [place] 600 mg 600 mg 600 mg da tablet tablet tablet [facility] ibuprofen ibuprofen No ibuprofen [place] 800 mg 800 mg 800 mg da tablet tablet tablet [facility] ketorolac ketorolac No ketorolac [place] 0.5 % eye 0.5 % eye 0.5 % eye da drops drops drops [facility] naproxen naproxen No naproxen [place] 500 mg 500 mg 500 mg da tablet tablet tablet [facility] ondansetron ondansetron No [...] mg 20 mg da tablet tablet tablet [facility] propranolol propranolol No propranolo [place] 10 mg 10 mg l 10 mg da tablet tablet tablet [facility] risperidone risperidone No risperidon [place] 1 mg tablet 1 mg tablet e 1 mg da tablet [facility] risperidone risperidone No risperidon [place] 4 mg tablet 4 mg tablet e 4 mg da tablet [facility] tramadol tramadol No [...] hr release 24 Outreac hr h Program Immunizations Ordered Filled Immunization Date Status Comments [facility] e Immunization Name Name SARS-COV-2 COVID-19 2020-08-06 Completed Unive rsity of MODERNA VACCINE 00:00:00 [facility] Branch SARS-COV-2 COVID-19 2020-08-06 Completed Unive rsity of MODERNA VACCINE 00:00:00 [facility] Branch SARS-COV-2 COVID-19 2020-08-06 Completed Unive rsity of MODERNA VACCINE 00:00:00 [facility] SARS-COV-2 COVID-19 2020-08-06 Completed Unive rsity of MODERNA VACCINE 00:00:00 [facility] Branch SARS-COV-2 COVID-19 2020-08-06 Completed Unive rsity of MODERNA VACCINE 00:00:00 [facility] Branch SARS-COV-2 COVID-19 2020-08-06 Completed Unive rsity of MODERNA VACCINE 00:00:00 [facility] Branch SARS-COV-2 COVID-19 2020-08-06 Completed Unive rsity of MODERNA VACCINE 00:00:00 [facility] SARS-COV-2 COVID-19 2020-08-06 Completed Unive rsity of MODERNA VACCINE 00:00:00 [facility] Branch SARS-COV-2 COVID-19 2020-08-06 Completed Unive rsity of MODERNA VACCINE 00:00:00 [facility] Branch SARS-COV-2 COVID-19 2020-08-06 Completed Unive rsity of MODERNA VACCINE 00:00:00 [facility] Branch SARS-COV-2 COVID-19 2020-08-06 Completed Unive rsity of MODERNA VACCINE 00:00:00 [facility] SARS-COV-2 COVID-19 2020-08-06 Completed Unive rsity of MODERNA VACCINE 00:00:00 [place] Med ical Branch SARS-COV-2 COVID-19 2020-08-06 Completed Unive rsity of MODERNA VACCINE 00:00:00 [place] Med ical Branch SARS-COV-2 COVID-19 2020-08-06 Completed Unive rsity of MODERNA VACCINE 00:00:00 [place] Med ical Branch SARS-COV-2 COVID-19 2020-08-06 Completed Unive rsity of MODERNA VACCINE 00:00:00 [place] Med ical Branch SARS-COV-2 COVID-19 2020-08-06 Completed Unive rsity of MODERNA VACCINE 00:00:00 [place] Med ical Branch SARS-COV-2 COVID-19 2020-08-06 Completed Unive rsity of MODERNA VACCINE 00:00:00 [place] Med ical Branch SARS-COV-2 COVID-19 2020-08-06 Completed Unive rsity of MODERNA VACCINE 00:00:00 [place] Med ical Branch SARS-COV-2 COVID-19 2020-08-06 Completed Unive rsity of MODERNA VACCINE 00:00:00 [place] Med [facility] Branch SARS-COV-2 COVID-19 2020-08-06 Completed Unive rsity of MODERNA VACCINE 00:00:00 [place] Med [facility] Branch SARS-COV-2 COVID-19 2020-08-06 Completed Unive rsity of MODERNA VACCINE 00:00:00 [place] Med ical Branch SARS-COV-2 COVID-19 2020-08-06 Completed Unive rsity of MODERNA VACCINE 00:00:00 [place] Med ical Branch SARS-COV-2 COVID-19 2020-08-06 Completed Unive rsity of MODERNA VACCINE 00:00:00 [place] Med ical Branch SARS-COV-2 COVID-19 2020-08-06 Completed Unive rsity of MODERNA VACCINE 00:00:00 [place] Med ical Branch SARS-COV-2 COVID-19 2020-08-06 Completed Unive rsity of MODERNA VACCINE 00:00:00 [place] Med ical Branch SARS-COV-2 COVID-19 2020-08-06 Completed Unive rsity of MODERNA VACCINE 00:00:00 [place] Med ical Branch SARS-COV-2 COVID-19 2020-08-06 Completed Unive rsity of MODERNA VACCINE 00:00:00 [place] Med [facility] Branch SARS-COV-2 COVID-19 2020-08-06 Completed Unive rsity of MODERNA VACCINE 00:00:00 [place] Med [facility] Branch SARS-COV-2 COVID-19 2020-07-09 Completed Unive rsity of MODERNA VACCINE 00:00:00 [place] Med ical Branch SARS-COV-2 COVID-19 2020-07-09 Completed Unive rsity of MODERNA VACCINE 00:00:00 [place] Med ical Branch SARS-COV-2 COVID-19 2020-07-09 Completed Unive rsity of MODERNA VACCINE 00:00:00 [place] Med ical Branch SARS-COV-2 COVID-19 2020-07-09 Completed Unive rsity of MODERNA VACCINE 00:00:00 [place] Med ical Branch SARS-COV-2 COVID-19 2020-07-09 Completed Unive rsity of MODERNA VACCINE 00:00:00 [place] [facility] SARS-COV-2 COVID-19 2020-07-09 Completed Unive rsity of [facility]ER[facility] VACCINE 00:00:00 [facility] SARS-COV-2 COVID-19 2020-07-09 Completed Unive rsity of [facility]ER[facility] VACCINE 00:00:00 [place] [facility] SARS-COV-2 COVID-19 2020-07-09 Completed Unive rsity of [facility] VACCINE 00:00:00 [place] [facility] SARS-COV-2 COVID-19 2020-07-09 Completed Unive rsity of MODERNA VACCINE 00:00:00 [place] [facility] SARS-COV-2 COVID-19 2020-07-09 Completed Unive rsity of MODERNA VACCINE 00:00:00 [place] [facility] SARS-COV-2 COVID-19 2020-07-09 Completed Unive rsity of MODERNA VACCINE 00:00:00 [place] [facility] SARS-COV-2 COVID-19 2020-07-09 Completed Unive rsity of MODERNA VACCINE 00:00:00 [place] [facility] SARS-COV-2 COVID-19 2020-07-09 Completed Unive rsity of MODERNA VACCINE 00:00:00 [place] [facility] SARS-COV-2 COVID-19 2020-07-09 Completed Unive rsity of [facility] VACCINE 00:00:00 [facility] SARS-COV-2 COVID-19 2020-07-09 Completed Unive rsity of MODERNA VACCINE 00:00:00 [place] [facility] SARS-COV-2 COVID-19 2020-07-09 Completed Unive rsity of MODER[facility] VACCINE 00:00:00 [facility] SARS-COV-2 COVID-19 2020-07-09 Completed Unive rsity of MODERNA VACCINE 00:00:00 [facility] SARS-COV-2 COVID-19 2020-07-09 Completed Unive rsity of MODERNA VACCINE 00:00:00 [facility] SARS-COV-2 COVID-19 2020-07-09 Completed Unive rsity of MODERNA VACCINE 00:00:00 [facility] ical Branch SARS-COV-2 COVID-19 2020-07-09 Completed Unive rsity of MODERNA VACCINE 00:00:00 [facility] SARS-COV-2 COVID-19 2020-07-09 Completed Unive rsity of MODERNA VACCINE 00:00:00 [facility] SARS-COV-2 COVID-19 2020-07-09 Completed Unive rsity of MODERNA VACCINE 00:00:00 [facility] SARS-COV-2 COVID-19 2020-07-09 Completed Unive rsity of MODERNA VACCINE 00:00:00 [facility] SARS-COV-2 COVID-19 2020-07-09 Completed Unive rsity of MODERNA VACCINE 00:00:00 [facility] SARS-COV-2 COVID-19 2020-07-09 Completed Unive rsity of MODERNA VACCINE 00:00:00 [facility] SARS-COV-2 COVID-19 2020-07-09 Completed Unive rsity of MODERNA VACCINE 00:00:00 [facility] SARS-COV-2 COVID-19 2020-07-09 Completed Unive rsity of MODERNA VACCINE 00:00:00 [facility] ical Branch SARS-COV-2 COVID-19 2020-07-09 Completed Unive rsity of MODERNA VACCINE 00:00:00 [place] [facility] influenza, influenza, 2018-11-21 Completed [facility] injectable, injectable, 00:00:00 Practice quadrivalent quadrivalent Vital Signs Vital Name Observation Time Observation Value Comments Source Systolic blood 2021-03-21 18:04:00 124 mm[Hg] Univer sity of pressure [facility] Diastolic blood 2021-03-21 18:04:00 77 mm[Hg] Unive rsity of pressure [facility] Heart rate 2021-03-21 18:04:00 94 /min Universi ty of [facility] Body temperature 2021-03-21 18:04:00 39 Priya Univ ersity of [facility] Branch Respiratory rate 2021-03-21 18:04:00 18 /min Univ ersity of [facility] Body weight 2021-03-21 18:04:00 71.668 kg Universi ty of [facility] BMI 2021-03-21 18:04:00 22.67 kg/m2 Universi ty of [facility] Oxygen saturation in 2021-03-21 18:04:00 99 /min University of Arterial blood by [facility] Pulse oximetry Branch Systolic blood 2021-02-28 18:18:00 127 mm[Hg] Univer sity of pressure [facility] Diastolic blood 2021-02-28 18:18:00 77 mm[Hg] Unive rsity of pressure [facility] Heart rate 2021-02-28 18:18:00 97 /min Universi ty of [facility] Body temperature 2021-02-28 18:18:00 37 Priya Univ ersity of [facility] Respiratory rate 2021-02-28 18:18:00 18 /min Univ ersity of [facility] Body weight 2021-02-28 18:18:00 97.977 kg Universi ty [facility] BMI 2021-02-28 18:18:00 30.99 kg/m2 Universi ty [facility] Oxygen saturation in 2021-02-28 18:18:00 99 /min University of Arterial blood by [facility] Pulse oximetry Branch Systolic blood 2021-01-18 18:29:00 106 mm[Hg] Univer sity of pressure [facility] Diastolic blood 2021-01-18 18:29:00 68 mm[Hg] Unive rsity of pressure [facility] Heart rate 2021-01-18 18:29:00 73 /min Universi ty [facility] Body temperature 2021-01-18 18:29:00 36.67 Priya Univ ersity of [facility] Respiratory rate 2021-01-18 18:29:00 20 /min Univ ersity of [facility] Body height 2021-01-18 18:29:00 177.8 cm Universi ty [facility] Body weight 2021-01-18 18:29:00 97.977 kg Universi ty [facility] BMI 2021-01-18 18:29:00 30.99 kg/m2 Universi ty of [facility] Oxygen saturation in 2021-01-18 18:29:00 98 /min University of Arterial blood by [place] [facility] Pulse oximetry Branch Systolic blood 2020-12-06 20:08:00 118 mm[Hg] Univer sity of pressure [facility] Diastolic blood 2020-12-06 20:08:00 76 mm[Hg] Unive rsity of pressure [facility] Heart rate 2020-12-06 20:08:00 75 /min Universi ty [facility] Respiratory rate 2020-12-06 20:08:00 22 /min Univ ersity of [facility] Body height 2020-12-06 20:08:00 177.8 cm Universi ty [facility] Body weight 2020-12-06 20:08:00 71.804 kg [facility]i ty [facility] BMI 2020-12-06 20:08:00 22.71 kg/m2 Universi ty [facility] Oxygen saturation in 2020-12-06 20:08:00 94 /min University of Arterial blood by [place] [facility] Pulse oximetry Branch Systolic blood 2020-10-21 03:02:00 117 mm[Hg] Univer sity of pressure [facility] Diastolic blood 2020-10-21 03:02:00 87 mm[Hg] Unive rsity of pressure [facility] Heart rate 2020-10-21 03:02:00 81 /min Universi ty [facility] Body temperature 2020-10-21 03:02:00 36.83 Priya Univ [facility] Respiratory rate 2020-10-21 03:02:00 20 /min Univ ersity of [facility] Body weight 2020-10-21 03:02:00 72.576 kg [facility]i ty [facility] BMI 2020-10-21 03:02:00 22.96 kg/m2 Universi ty [facility] Oxygen saturation in 2020-10-21 03:02:00 98 /min University of Arterial blood by [place] [facility] Pulse oximetry Branch Systolic blood 2020-10-09 14:16:00 127 mm[Hg] Univer sity of pressure [facility] Diastolic blood 2020-10-09 14:16:00 77 mm[Hg] Unive rsity of pressure [facility] Heart rate 2020-10-09 14:16:00 90 /min Universi ty of [facility] Body temperature 2020-10-09 14:16:00 36.5 Priya Univ ersity of [facility] Respiratory rate 2020-10-09 14:16:00 18 /min Univ ersity of [facility] Body weight 2020-10-09 14:16:00 72.576 kg Universi ty [facility] BMI 2020-10-09 14:16:00 22.96 kg/m2 [facility]i ty [facility] Oxygen saturation in 2020-10-09 14:16:00 97 /min University of Arterial blood by [facility] Pulse oximetry Branch Height 2020-07-05 00:00:00 70 [in_i] [facility] BMI (Body Mass 2020-07-05 00:00:00 22.2 kg/m2 [facility] Body Weight 2020-07-05 00:00:00 155 [lb_av] [facility] Systolic blood 2020-05-13 17:37:00 126 mm[Hg] Univer sity of pressure [facility] Diastolic blood 2020-05-13 17:37:00 76 mm[Hg] Unive rsity of pressure [facility] Heart rate 2020-05-13 17:37:00 81 /min Universi ty [facility] Body temperature 2020-05-13 17:37:00 36.17 Priya Univ ers[facility] of [facility] Respiratory rate 2020-05-13 17:37:00 14 /min Univ ersity of [facility] Body height 2020-05-13 17:37:00 177.8 cm [facility]i ty [facility] Body weight 2020-05-13 17:37:00 72.576 kg [facility]i [facility] BMI 2020-05-13 17:37:00 22.96 kg/m2 [facility] ty [facility] Oxygen saturation in 2020-05-13 17:37:00 97 /min University of Arterial blood by [facility] Pulse oximetry Branch Systolic blood 2020-05-13 17:37:00 126 mm[Hg] Univer sity of pressure [facility] Diastolic blood 2020-05-13 17:37:00 76 mm[Hg] Unive rsity of pressure [facility] Heart rate 2020-05-13 17:37:00 81 /min Universi ty [facility] Body temperature 2020-05-13 17:37:00 36.17 Priya Univ ersity of [facility] Respiratory rate 2020-05-13 17:37:00 14 /min Univ ersity of [facility] Body height 2020-05-13 17:37:00 177.8 cm Universi ty [facility] Body weight 2020-05-13 17:37:00 72.576 kg [facility]i ty [facility] BMI 2020-05-13 17:37:00 22.96 kg/m2 Universi ty [facility] Oxygen saturation in 2020-05-13 17:37:00 97 /min University of Arterial blood by [facility] Pulse oximetry Branch Systolic blood 2020-02-04 18:41:00 129 mm[Hg] Univer sity of pressure [facility] Diastolic blood 2020-02-04 18:41:00 79 mm[Hg] Unive rsity of pressure [facility] Heart rate 2020-02-04 18:41:00 92 /min Universi ty [facility] Body temperature 2020-02-04 18:41:00 36.44 Priya Univ ersity of [facility] Respiratory rate 2020-02-04 18:41:00 20 /min Univ ers[facility] of [facility] Body weight 2020-02-04 18:41:00 68.04 kg [facility]i [facility] BMI 2020-02-04 18:41:00 21.52 kg/m2 [facility] ty [facility] Oxygen saturation in 2020-02-04 18:41:00 97 /min University of Arterial blood by [facility] Pulse oximetry Branch Systolic blood 2020-02-04 18:41:00 129 mm[Hg] Univer sity of pressure [facility] Diastolic blood 2020-02-04 18:41:00 79 mm[Hg] Unive rsity of pressure [facility] Heart rate 2020-02-04 18:41:00 92 /min [facility]i ty [facility] Body temperature 2020-02-04 18:41:00 36.44 Priya Univ [facility] Respiratory rate 2020-02-04 18:41:00 20 /min Univ [facility] Body weight 2020-02-04 18:41:00 68.04 kg [facility] BMI 2020-02-04 18:41:00 21.52 kg/m2 [facility] ty [facility] Oxygen saturation in 2020-02-04 18:41:00 97 /min University of Arterial blood by [facility] Pulse oximetry Branch Systolic blood 2019-11-21 15:33:00 117 mm[Hg] Univer sity of pressure [facility] Diastolic blood 2019-11-21 15:33:00 74 mm[Hg] Unive rsity of pressure [facility] Heart rate 2019-11-21 15:33:00 57 /min [facility]i ty [facility] Respiratory rate 2019-11-21 15:33:00 19 /min Univ ersity [facility] Body height 2019-11-21 15:33:00 177.8 cm [facility] Body weight 2019-11-21 15:33:00 68.085 kg [facility] BMI 2019-11-21 15:33:00 21.54 kg/m2 [facility] Oxygen saturation in 2019-11-21 15:33:00 96 /min University of Arterial blood by [facility] Pulse oximetry Branch Systolic blood 2019-11-21 15:33:00 117 mm[Hg] Univer sity of pressure [facility] Diastolic blood 2019-11-21 15:33:00 74 mm[Hg] Unive rsity of pressure [facility] Heart rate 2019-11-21 15:33:00 57 /min [facility]i ty [facility] Respiratory rate 2019-11-21 15:33:00 19 /min Univ ersity [facility] Body height 2019-11-21 15:33:00 177.8 cm [facility] ty [facility] Body weight 2019-11-21 15:33:00 68.085 kg Universi ty [facility] BMI 2019-11-21 15:33:00 21.54 kg/m2 Universi [facility] Oxygen saturation in 2019-11-21 15:33:00 96 /min [facility] Arterial blood by [facility] Pulse oximetry Branch Height 2019-07-05 00:00:00 70 [in_i] [facility] Practice BMI (Body Mass 2019-07-05 00:00:00 21.5 kg/m2 [facility] Body Weight 2019-07-05 00:00:00 150 [lb_av] [facility] Systolic blood 2019-04-21 14:11:00 133 mm[Hg] Univer sity of pressure [facility] Diastolic blood 2019-04-21 14:11:00 83 mm[Hg] Unive rsity of pressure [facility] Respiratory rate 2019-04-21 14:11:00 18 /min [facility] height 2019-04-21 14:11:00 180.3 cm Universi ty [facility] Body weight 2019-04-21 14:11:00 65.772 kg Universi ty [facility] BMI 2019-04-21 14:11:00 20.22 kg/m2 [facility] Procedures Procedure Date / Time Performing Clinician Source Performed CONSENT/REFUSAL FOR 2021-03-21 17:58:58 Doctor Nata, [facility] DIAGNOSIS AND TREATMENT [facility] ASSIGNMENT OF BENEFITS 2021-02-28 19:15:57 [facility] CONSENT/REFUSAL FOR 2021-02-28 18:10:16 [facility]REAT[facility] MR FOOT LEFT WO CONTRAST 2021-02-25 15:23:46 Requisition, [facility] CONSENT/REFUSAL FOR 2021-02-25 14:13:09 Doctor Nata, [facility] DIAGNOSIS AND TREATMENT [facility] PULMONARY FUNCTION TEST 2021-02-19 14:30:22 Luis Daniel Johnson [facility] (RESULTS) [facility] MEDICATION CORRESPONDENCE 2021-02-05 06:01:00 Doctor Nata, [facility] MEDICATION CORRESPONDENCE 2021-01-26 05:01:00 Doctor Unassigned, [facility] MEDICATION CORRESPONDENCE 2021-01-24 05:01:00 Doctor Taylersspiotr, [facility] MEDICATION CORRESPONDENCE 2021-01-22 05:01:00 Doctor Unasspiotr, [facility] MEDICATION CORRESPONDENCE 2021-01-20 05:01:00 Doctor Nata, [facility] XR FOOT 3+ VW LEFT 2021-01-18 20:16:[address] [facility] XR ANKLE 3+ VW LEFT 2021-01-18 19:48:[address] [facility] NOTICE OF PRIVACY 2021-01-18 18:11:37 Doctor Nata, [facility] CONSENT/REFUSAL FOR 2021-01-18 18:11:21 Doctor Peace [facility] DIAGNOSIS AND TREATMENT [facility] CONSENT/REFUSAL FOR 2020-10-21 02:49:47 Doctor Nata [facility] DIAGNOSIS AND TREATMENT [facility] CONSENT/REFUSAL FOR 2020-10-09 14:09:46 Doctor Nata [facility] DIAGNOSIS AND TREATMENT [facility] INSURANCE CORRESPONDENCE 2020-09-28 05:01:00 Doctor Nata, [facility] MEDICATION CORRESPONDENCE 2020-05-23 06:01:00 Doctor Nata, [facility] XR WRIST <3 VW RIGHT 2020-05-13 18:03:58 Alyssia Moss [facility] NOTICE OF PRIVACY 2020-05-13 17:29:28 Doctor Nata, [facility] PRACTICES [facility] CONSENT/REFUSAL FOR 2020-05-13 17:29:07 Doctor Nata [facility] DIAGNOSIS AND TREATMENT [facility] REFERRAL- 2020-02-20 06:01:00 Doctor Nata, [facility] REQUEST/RESPONSE [facility] 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 - ADC 2019-11-18 05:01:00 Doctor Peace [facility] REFERRAL [facility] ASSIGNMENT OF BENEFITS 2019-04-21 14:06:48 [facility] Append[facility] Extraction of Cataract [facility] Appendectomy [facility] Hernia Repair W/mesh [facility] Plan of Care Planned Activity Planned Date Details Comments Source Instructions [facility] Encounters Start End Encounter Admission Attending Care Care Encounter Source Date/Time Date/Time Type Type Clinicians Facility Department ID 2021-01-21 Emergency [facility] [id number] Univers 12:14:06 ity of [facility] 2021-01-21 Emergency [facility] [id number] Univers 09:20:59 ity of [facility] 2021-01-20 Emergency [facility] [id number] Univers 00:18:41 ity of [facility] 2021-01-19 Emergency [facility] [id number] Univers 05:34:10 ity of [facility] 2021-03-29 2021-03-29 Outpatient R LUIS DANIEL JOHNSON [facility] [id number] Univers 14:00:00 14:00:00 LUIS DANIEL JOHNSON [id number] i ty of [facility] 2021-03-29 2021-03-29 Outpatient R LUIS DANIEL JOHNSON [facility] [id number] Univers 14:00:00 14:00:00 LUIS DANIEL JOHNSON i ty of [facility] 2021-03-21 2021-03-21 Emergency X [facility] ERT [id number] Univers 12:03:00 13:32:00 DANA ity [facility] 2021-03-21 2021-03-21 Emergency [facility] [id number] Univers 12:03:00 13:32:00 Dana MORRISON [id number] ity [facility] [id number] [facility] [id number] [facility] 084 Branch 2021-02-28 2021-02-28 Emergency X [facility] ERT [id number] Univers 12:27:00 13:58:00 RINA ity [facility] 2021-02-28 2021-02-28 Emergency [facility] [id number] Univers 12:27:00 13:58:00 Rina PRINCE [id number] i ty of [facility] [id number] [facility] [id number] [place] [id number] [place] 2021-02-25 2021-02-25 Outpatient R RADIOLOGY [facility] [id number] Univers 08:13:07 23:59:00 ity of [facility] 2021-02-25 2021-02-25 Hospital Radiology [facility] [id number] Univers 08:13:07 23:59:00 Encounter PRINCE [id number] ity of [facility] [id number] [facility] [id number] [facility] 804 [place] 2021-02-25 2021-02-25 Outpatient R [facility] [id number] Univers 09:00:00 09:00:00 [id number] [facility] 2021-02-19 2021-02-19 Clinical Administrator Therapist, Adc Respiratory [facility] [id number] Univers 08:23:40 09:53:40 Visit Dave Matta [id number]. 10 ity [facility] [id number] [facility] [id number] [address] 2021-02-19 2021-02-19 Outpatient R [facility] [id number] Univers 08:00:00 08:00:00 [id number] ity [facility] 2021-02-19 2021-02-19 Outpatient R SIGRID [facility] [id number] Univers 08:00:00 08:00:00 DAVE ity [facility] 2021-02-19 2021-02-19 ONOFRE Haro [id number] Univers 00:00:00 00:00:00 Only [facility] [id number] i ty of CLINICS [id number] [facility] [id number] [address] 2021-02-08 2021-02-08 Outpatient LUIS DANIEL BROWN [facility] [id number] Univers 11:00:00 11:00:00 LUIS DANIEL JOHNSON [id number] i ty of [facility] 2021-02-05 2021-02-05 Orders Doctor ROSAMARIA [id number] Univers 00:00:00 00:00:00 Only Unassigned, LAURYN [id number] ity of [facility] [id number] Kishore as [id number] [address] 2021-01-26 2021-01-26 Orders Doctor ROSAMARIA [id number] Univers 00:00:00 00:00:00 Only Unassigned, LAURYN [id number] ity of [facility] [id number] Kishore as [id number] [address] 2021-01-24 2021-01-24 Orders Doctor BLANK [id number] Univers 00:00:00 00:00:00 Only Unassigned, LAURYN [id number] ity of [facility] [id number] Kishore as [id number] [address] 2021-01-22 2021-01-22 Orders Doctor ROSAMARIA [id number] Univers 00:00:00 00:00:00 Only Unassigned, LAURYN [id number] ity of [facility] [id number] Kishore as [id number] [address] 2021-01-20 2021-01-20 Orders Doctor ROSAMARIA [id number] Univers 00:00:00 00:00:00 Only Unassigned, LAURYN [id number] ity of [facility] [id number] Kishore as [id number] [address] 2021-01-18 2021-01-18 Emergency X [facility] ERT [id number] Univers 13:34:00 16:30:00 ALYSSIA ity [facility] 2021-01-18 2021-01-18 Emergency [facility] [id number] Univers 13:34:00 16:30:00 Alyssia MORRISON [id number] i ty of [facility] [id number] [facility] s REEDER [id number] [place] 558194 [place] 2020-12-06 2020-12-06 Office [facility] [id number] Univers 14:33:18 15:23:38 Visit Antonietastan [place] [id number] i ty of [place] [id number] [facility] [id number] [place] [id number] [facility] 2020-12-06 2020-12-06 Outpatient R LUIS DANIEL JOHNSON [facility] [id number] Univers 15:00:00 15:00:00 LUIS DANIEL JOHNSON [id number] i ty of [facility] 2020-12-06 2020-12-06 Outpatient R LUIS DANIEL JOHNSON [facility] [id number] Univers 14:40:00 14:40:00 LUIS DANIEL JOHNSON i ty of [facility] 2020-10-29 2020-10-29 Outpatient R [facility] [id number] Univers 10:00:00 10:00:00 [id number] [facility] 2020-10-24 2020-10-24 Office ONOFRE Ruth [id number] Univers 13:31:57 14:01:33 Visit Sukhjinder CHAO [id number] ity [facility] [id number] [facility] [id number] [facility] 028 [place] 2020-10-24 2020-10-24 Outpatient Goyo RUTH [facility] [id number] Univers 14:00:00 14:00:00 SUKHJINDER [id number] ity [facility] 2020-10-24 2020-10-24 Outpatient Goyo RUTH [facility] [id number] Univers 14:00:00 14:00:00 SUKHJINDER perez [facility] 2020-10-22 2020-10-22 Telephone [facility] [id number] Univers 00:00:00 00:00:00 Sukhjinder R MULTISPEC [id number] ity of [id number] [id number] [address] DIAB[facility]ES CL[facility]IC 2020-10-20 2020-10-20 Emergency Jamison [facility] [id number] Univers 22:06:00 22:44:00 Susy Morrison [id number] [id number] [id number] [facility] 084 Branch 2020-10-20 2020-10-20 Case [facility] [id number] Univers 00:00:00 00:00:00 Management [facility] [id number] ity of [id number] [id number] [facility] 028 [place] 2020-10-18 2020-10-18 Telephone Faraz [facility] [id number] Univers 00:00:00 00:00:00 [facility] HEALTH [id number] ity [id number] [id number] [address] 2020-10-17 2020-10-17 Office Faraz [facility] [id number] Univers 14:08:14 14:58:[address] [facility] HEALTH [id number] it[id number] [id number] [address] 2020-10-17 2020-10-17 Outpatient Goyo RUTH [facility] [id number] Univers 14:30:00 14:30:00 SUKHJINDER [id number] ana of [facility] 2020-10-17 2020-10-17 Outpatient Goyo RUTH [facility] [id number] Univers 14:30:00 14:30:00 SUKHJINDER perez of [facility] 2020-10-09 2020-10-09 Emergency [facility] [id number] Univers 09:17:00 10:43:00 Alyssia Morrison [id number] i ty [id number] [id number] [facility] 084 Branch 2020-09-28 2020-09-28 Orders Doctor ROSAMARIA [id number] [id number] Univers 00:00:00 00:00:00 Only Unassigned, LAURYN [id number] ity of [facility] 4.2.7.2.686 Kishore as [phone] [facility] [address] Branch 2020-08-06 2020-08-06 Outpatient Goyo HUBBARD, [facility] [id number] Univers 08:30:00 08:30:00 DONNA ity [facility] 2020-07-25 2020-07-25 Outpatient [facility] 79 [id number] [facility] 05:42:00 05:42:00 _A_AH 63109 Family Practic e 2020-07-09 2020-07-09 Outpatient [facility] 79[facility] 09:06:00 09:06:00 _A_AH 36825 Family Practic e 2020-07-09 2020-07-09 Outpatient [facility] [id number] Univers 08:30:00 08:30:00 ity of [facility] 2020-07-05 2020-07-05 Yaa [facility] [place] - [id number] V illage 00:00:00 00:00:00 [facility] 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 2020-06-12 2020-06-12 Patient Dirk NYTAMY 1.2.840.114 [id number] Univers 00:00:00 00:00:00 Outreach Eulalio PRIMARY [id number] i ty of Nnamdi [facility] [place].2.7.2.686 [place] [phone] [place] dic[address] 2020-06-12 2020-06-12 Patient Dirk NYTAMY 1.2.840.114 [id number] 00:00:00 00:00:00 Outreach [facility] [id number] [facility] 4.2.7.2.686 [place] [id number] 388 2020-05-23 2020-05-23 Orders Doctor BLANK 1.2.840.114 [id number] [facility] 00:00:00 00:00:00 Only Unassigned, LAURYN 350.1.13.10 ity of [facility] 4.2.7.2.686 Kishore as [phone] [facility] 00[address] Branch 2020-05-23 2020-05-23 Orders Doctor BLANK 1.2.840.114 [id number] 00:00:00 00:00:00 Only Unassigned, LAURYN 350.1.13.10 [facility] [id number] 009 2020-05-13 2020-05-13 Emergency [place], [facility] [id number] [facility] 11:38:00 12:32:00 Alyssia Morrison 350.1.13.10 i ty of [place] 4.2.7.2.[address] [facility] [phone] [facility] 084 Branch 2020-05-13 2020-05-13 Emergency [facility] [id number] 11:38:00 12:32:00 Alyssia Morrison 350.1.13.10 [place] 4.2.7.2.686 [place] [id number] 08 2020-05-13 2020-05-13 Orders Doctor BLANK 1.2.840.114 [id number] [facility] 00:00:00 00:00:00 Only Unassigned, LAURYN 350.1.13.10 ity of [facility] 4.2.7.2.686 Kishore as [phone] [facility] [address] 2020-05-13 2020-05-13 Orders Doctor ROSAMARIA Murdock.2.840.114 [id number] 00:00:00 00:00:00 Only Unassigned, LAURYN 350.1.13.10 [facility] [id number] 009 2020-02-20 2020-02-20 Orders Doctor ROSAMARIA 1.2.840.114 [id number] Univers 00:00:00 00:00:00 Only Unassigned, LAURYN 350.1.13.10 ity of [facility] 4.2.7.2.686 Kishore [phone] [facility] 00[address] 2020-02-20 2020-02-20 Orders Doctor ROSAMARIA 1.2.840.114 [id number] 00:00:00 00:00:00 Only Unassigned, LAURYN 350.1.13.10 [facility] 4.2.7.2.686 [id number] 009 2020-02-04 2020-02-04 Emergency [facility] [id number] [facility] 12:43:00 13:48:00 Susy Morrison 350.1.13.10 i ty of [place] 4.2.7.2.686 [facility] s [place] [phone] [facility] 084 Branch 2020-02-04 2020-02-04 Emergency [facility] [id number] 12:43:00 13:48:00 Susy S Prince 350.1.13.10 [place] 4.2.7.2.686 [place] [id number] 4 2019-12-13 2019-12-13 Outpatient AMBREEN[place] [address] [place] 05:32:00 05:32:00 HANA 0922 [facility] 2019-12-06 2019-12-06 Outpatient AMBREEN[place] [address] [place] 05:36:00 05:36:00 HANA 0915 [facility] 2019-12-06 2019-12-06 [facility] - [id number] [place] 00:00:00 00:00:00 Nahun Streeter MD: [address] Dayanara F, [facility] a [place], [place] [facility] [address] [facility] , Ph. h (979) Program 2019-11-22 2019-11-22 [facility] 1.2.525.301 [id number] Univers 00:00:00 00:00:00 Audiantoinette Morrison 350.1.13.10 [place]y [place].2.[place] Profess[place] [phone] Wa dic[address] 2019-11-22 2019-11-22 Telephone [facility] 1.2.439.573 [id number] 00:00:00 00:00:00 Shefali Morrison 350.1.13.10 [place] 4.2.7.2.686 Professio [phone] [address] 2019-11-21 2019-11-21 Office [facility] 1.2.840.114 [id number] Univers 10:05:29 10:53:34 Visit Shefali Morrison 350.1.13.10 [place]y [place] Profess[place] [phone] [address] 2019-11-21 2019-11-21 Office [facility] 1.2.840.114 [id number] 10:05:29 10:53:34 Visit Shefali Prince 350.1.13.10 [place] 4.2.7.2.686 Professio [phone] [address] 2019-11-21 2019-11-21 Outpatient R [facility] [id number] Univers 10:40:00 10:40:00 SHEFALI [id number] ana o f [facility] 2019-11-21 2019-11-21 Outpatient R [facility] [id number] Univers 10:40:00 10:40:00 SHEFALI perez o f [facility] 2019-11-18 2019-11-18 Orders Doctor BLANK 1.2.840.114 [id number] Univers 00:00:00 00:00:00 Only Unassigned, LAURYN 350.1.13.10 [facility] 4.2.7.2.686 Kishore as [phone] [address] 2019-11-18 2019-11-18 Orders Doctor BLANK 1.2.840.114 [id number] 00:00:00 00:00:00 Only Unassigned, LAURYN 350.1.13.10 [facility] 4.2.7.2.686 [id number] 009 2019-08-12 2019-08-12 Outpatient Tonie-Mbradhao VFP VFP [address] [place] [address] 11:11:00 11:11:00 _A_AH 82955 Family Practic e 2019-07-20 2019-07-20 Outpatient Tonie-Mbayo VFP VFP [address] [place] [address] 09:28:00 09:28:00 _A_AH 51156 Family Practic e 2019-07-05 2019-07-05 Outpatient Tonie-Mbayo VFP VFP [address] [place] [address] 09:42:00 09:42:00 _A_AH 05850 Family Practic e 2019-07-05 2019-07-05 Yaa [facility] [place] - [id number] V illage 00:00:00 00:00:00 [facility] 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 2019-06-22 2019-06-22 Outpatient Tonie-Mbradhao VFP VFP [address] [place] [address] 10:56:00 10:56:00 _A_AH 80964 Family Practic e 2019-04-21 2019-04-21 Office EVELYNE Sanchez 1.2.840.114 [id number] Univers 08:09:30 08:24:30 Visit [facility] 350.1.13.10 it y of Surgical 4.2.7.2.686 Kishore as Specialti [phone] Wa dical es [address] [place] 2019-04-21 2019-04-21 Orders Doctor ROSAMARIA 1.2.840.114 [id number] Univers 00:00:00 00:00:00 Only Unassigned, LAURYN 350.1.13.10 ity of [facility] 4.2.7.2.686 Kishore as [phone] [address] Results Test Description Test Time Test Comments Results Result Comments Source PULMONARY FUNCTION TEST (RESULTS) 2021-02-19 14:30:22 Test Item Value Reference Range Interpretation Comme nts FVC Actual (test code = 3994) 5.36 L FEV1 Actual (test code = 3993) 3.30 L FEV1/FVC Actual (test code = 3995) 62 % [facility] VW [id number] 18:08:26 Posttraumatic soft tissue swelling with no acute bony abnormality. 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 EXAM: XR WRIST <3 VW RIGHT HISTORY: pain s/p fall COMPARISON: None FINDINGS: Imaging of the wrist demonstrates ulnar minus variance. Cystic changesnoted at the ulnar fovea with superimposed chroniccortical remodeling.There is swelling surrounding the wrist with no acute fracture, erosion ordislocation. Mild dorsal subluxation of the ulnar head is seen on thelateral view. [facility], Radiant Results Inft User - 05/13/2020 12:09 PM CSTEXAM:XR WRIST <3 VW RIGHTHISTORY:pain s/p fall COMPARISON:NoneFINDINGS: Imaging of the wrist demonstrates ulnar minus variance. Cystic changesnoted at the ulnar foveawith superimposed chronic cortical remodeling.There is swelling surrounding the wrist with no acute fracture, erosion ordislocation. 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 withminimal dorsal ulnar subluxation with ulnar minus variance.[facility] CHEM [id number] 11:05:00 Test Item Value Reference Range Interpretation Comments ISTATNA (test code = 142 MMOL/L 137-145 ISTATNA) ISTATK (test code = 3.6 MMOL/L 3.6-5.0 ISTATK) ISTATCL (test code = 106 MMOL/L 98-107 ISTATCL) ISTIONCA (test code = 1.22 MMOL/L 1.12-1.32 ISTIONCA) ISTCO2 (test code = 27 MMOL/L 22-30 ISTCO2) ISTATGLU (test code = 91 MG/DL 65-110 ISTATGLU) ISTATBUN (test code = 15.0 MG/DL 7.0-20.0 ISTATBUN) ISTCREA (test code = 1.1 MG/DL 0.7-1.5 ISTCREA) ISTATHCT (test code = 43 %PCV 37.0-52.0 ISTATHCT) ISTATHGB (test code = 14.6 G/DL 12.0-18.0 Notifi ed Nurse/MD of ISTAGB) results outside of Reference Range s ISTANGAP (test code = 12 MMOL/L Notifi ed Nurse/MD of ISTANHOBOKEN) results outside of Reference Range s BMP, BASIC METABOLIC [id number] 15:07:00 Test Item Value Reference Range Interpretation [...] glucose = GLUCOSE) normal <100 MG/ DL- [employer] recommendation* * CALCIUM (test code 9.4 MG/DL 8.4-10.2 = CABLOOD) GFR (test code = 95 A GFR of >9 0 GFR) mL/min/1.73m2 mL/min/1.73m2 is considered norm al. [id number] 15:07:00 Test Item Value Reference Range Interpretation Comments MG (test code = MG) 2.4 mg/dL 1.6-2.3 H PROTHROMBIN TIME WITH [id number] 14:02:00 Test Item Value Reference Range Interpretation Comments PROTHROMBIN TIME 13.7 SECONDS 12.0-14.6 INR Usual R randal = 2 (test code = PT) to 3 for pr evention of deep vein thrombosis (DVT ) INR (test code = INR) 1.1 [id number] 13:45:00 Test Item Value Reference Range Interpretation [...] K/UL 1.2-7.2 = NEUT) CHEST XR 2 [id number] 12:25:[address] [id number] IMAGING REPORTPatient Name: Yamil TABARES of Service: [id number]: 48 Sex: M Order #: [id number] [facility] 1970 X-Ray Number: [id number] Record Number: [id number] Hospital Number: [id number] Physician: NELIDA WAITE -Ordering Physician: NELIDA WAITE [...] 12:23:24PET, CARDIAC PERFUSION MULTIPLE STUDIES, REST AND [id number] 15:30:00Reason for exam:- >chest pain, multiple risk factors for CADFINAL REPORT PROCEDURE: Rest/Stress MYOCARDIAL PERFUSION PET with regadenoson\\XA9\\ CPT CODE: 80245 INDICATION: Chest pain, multiple risk factors for CAD HISTORY: Cardiac risk factors: Diabetes, hypertension, tobacco. Other cardiovascular history: Previous MD. Recent cardiac symptoms: Chest pain. PROTOCOL: Limited [...] Normal extracardiac tracer distribution. 6. No previous [facility] study for comparison. NONINVASIVE RISK STRATIFICATION: The above findings are considered low risk (<1% annual mortality rate) based on the following criterion:- Normal or small myocardial perfusion defectat rest or with stress(JACC. 2012;59(9):857-81.) Signed: Bekah Cota MDReport Verified Date/Time:11/27/2017 15:30:18 Reading Location: [address] Reading Room HEMOGLOBIN [id number] 09:48:00 Test Item Value Reference Range Interpretation Comments HEMOGLOBIN A1C (BEAKER) (test code = 4.9 % 4.3-6.1 368) BASIC METABOLIC [id number] 06:47:00 Test Item Value Reference Range Interpretation [...] DATA TO CALCULA TE ESTIMATED GFR. TROPONIN [id number] 06:44:00 Test Item Value Reference Range Interpretation [...] failure, acidosis, acute neurological disease, and persistent tachyarrhythmia.[id number] 06:43:00 Test Item Value Reference Range Interpretation Comments MAGNESIUM (BEAKER) (test code = 2.7 mg/dL 1.6-2.6 H 627) CBC W/PLT COUNT & AUTO [id number] 06:09:00 Test Item Value Reference Range Interpretation [...] PERCENT (BEAKER) (test code = 2801) TROPONIN [id number] 01:49:00 Test Item Value Reference Range Interpretation [...] acute neurological disease, and persistent tachyarrhythmia.BASIC METABOLIC [id number] 01:49:00 Test Item Value Reference Range Interpretation [...] m DATA TO CALCULA TE ESTIMATED GFR. [id number] 01:42:00 Test Item Value Reference Range Interpretation Comments MAGNESIUM (BEAKER) (test code = 2.2 mg/dL 1.6-2.6 627) LIPID [id number] 01:42:00 Test Item Value Reference Range Interpretation [...] 130-159 High 160-189 Very High >=190HEPATIC FUNCTION [id number] 01:42:00 Test Item Value Reference Range Interpretation [...] 6-55 347) CBC W/PLT COUNT & AUTO [id number] 00:59:00 Test Item Value Reference Range Interpretation [...] % 0-1 PERCENT (BEAKER) (test code = 5321)
[2021-03-23 16:29] LABS: SARS-COV-2 RT PCR POSITIVE (NEGATIVE)
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
[2021-03-23 17:40] VITALS: BP 134/87; TEMP 98.2; O2SAT 100
== END 2021-03-23 17:21 | disposition home or self-care (01) ==
LOC: ER 13:18
DX: U07.1 COVID-19 (principal)
CPT/HCPCS: 0240U; 99281

== ENCOUNTER 2021-04-13 19:14 | Emergency (ER) | payer OTHER ==
--- OUTSIDE RECORDS SUMMARY | 2021-04-13 19:21 | XMS REPORT | Continuity of Care Document ---
:1970 Author Organization [facility] t Address [address] [place] [address] Care Team Providers Name Role Phone MAGDALENA [...] Clinician Unavailable Nnamdi Cavazos DO Attending Clinician HARIS_VINNY Attending Clinician Unavailable Ashish CIFUENTES Attending Clinician ASHISH Attending Clinician Unavailable Laura POWERS, S Attending Clinician JULIA Attending Clinician Unavailable LAURA MULLEN Attending Clinician Unavailable YAO Admitting Clinician Unavailable AJAY Admitting Clinician Unavailable Tonie-Mbayo_A_AH Admitting Clinician Unavailable LEAH Admitting Clinician Unavailable JULIA Admitting Clinician Unavailable LAURA MULLEN Admitting Clinician Unavailable Payers Payer Name Policy Type Policy Number Effective Date Expiration Date Radha payne [employer] [place] [id number] 2019 CLASSIC/VALUE 00:00:00 [place] [id number] 2019 00:00:00 [facility] [id number] 2019 [place] (MEDICARE 00:00:00 REPLACEMENT/ADVANTA GE - HMO) WELLCARE [id number] 2019 HEALTHPLANS 00:00:00 (MEDICARE REPLACEMENT [place]) [place] [facility] - [id number] [facility] 2 M [id number] 2018 00:00:00 Advance Directives Directive Decision Effective Termination Comments Source Date Date Healthcare Agents on N/A [facility] Agent Medical RelationshipCommunication[facility] Jayda TabaresF[facility]ter[facility] Care [phone] (Mobile) [email or web address] Problems Condition Condition Condition Status Onset Resolution Last Treating Co mments Source Name Details Category Date Date Treatment Clinician Date Mild major Mild Major Problem Active [facility] depression Depression 4-18 Fa johan , single , Single 00:00: Practi c episode Episode 00 e Hyperlipid Hyperlipid Problem Active M [place] emia emia 9-15 [facility] Anxiety Anxiety Problem Active 2020-0 [place] disorder Disorder 9-15 [...] da right eye 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: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 [facility] Hyperchole Hyperchole Problem Active 2019-0 [facility] sterolemia sterolemia 4-15 Fa johan 00:00: Practic 00 e Chronic Chronic Problem Active 2020-0 [place] back pain Back Pain 4-15 Fami ly 00:00: Practic 00 e Anxiety Anxiety Problem Active 2020-0 [place] 4-14 Family 00:00: Practic 00 e 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-14 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 Obstructiv 00:00: Pr actic e e 00 e pulmonary Pulmonary disease Disease Prediabete Prediabete Problem Active 2019-0 V illage s s 4-14 Family 00:00: Practic 00 e No known No known Disease Unive rs active active ity of problems problems [place] [facility] Allergies, Adverse Reactions, Alerts Allergy Allergy Status Severity Reaction(s) Onset Inactive Treating Comm ents Source Name Type Date Date Clinician VENLAFAX DRUG Active Dizziness Unive rs INE INGREDI 10-17 ity of 00:00: [place] 00 Medical Branch Venlafax Propensi Active Dizziness Uni vers ine ty to 10-17 ity of adverse 00:00: [place] reaction Medical s to Branch drug ADHESIVE DRUG Active Unknown-Cmnt 2019-0 Un bam TAPE-DEEDEE - ity of ICONES 00:00: [place] 00 Medical Branch LATEX DRUG Active Unknown-Cmnt 0 Univ ers INGREDI 04-15 ity of 00:00: [place] 00 Medical Branch Adhesive Propensi Active Unknown - Uni vers Tape-Deedee ty to See comments 24 it y of icones adverse 00:00: [place] reaction 00 Medical s Branch Latex Propensi Active Unknown - Unive rs ty to See comments 04-15 ity of adverse 00:00: [place] reaction 00 Medical s Branch No Known NA Active [facility] Allergie 6-10 [facility] 10:48: l 08 ([place]) Hydrocod Propensi Active Dizziness 2017-03 Uni vers one-Acet ty to 0-01 ity of aminophe adverse 00:00: [place] n reaction 00 Medical s Branch Hydrocod Propensi Active Rash Other Univer s one-Acet ty to 9 reaction( ity o f aminophe adverse 00:00: s[place] reaction 00 (see Medical s comments) Branch HYDROCOD DRUG Active High Dizziness Unive rs ONE-ACET 11-26 ity of AMINOPHE 00:00: [place] N 00 Medical Branch HYDROCOD Allergy Active High Rash [facility] 11-26 [facility] AMINOPHE 00:[facility]: Medical N 00 Center ADHESIVE Allergy Active [place] TAPE to da substanc [facility] Latex Allergy Active [place] to da substanc [facility] Social History Social Habit Start Date Stop Date Quantity Comments Source Exposure to Not sure [facility] SARS-CoV-2 (event) Medica l Branch Tobacco use and 2019-04-21 2019-04-21 Never used [facility] exposure 00:00:00 00:00:[address] [facility] Sex Ass[birth year] [facility] 00:00:00 00:00:00 [facility] Smoking Status Start Date Stop Date Source Heavy Tobacco Smoker [facility] Current every day smoker 2019-04-21 00:00:00 Uni versity [facility] Unknown if ever smoked [facility] Medications Ordered Filled Start Stop Current Ordering Indication Dosage Frequency Signature Comments Components Source Medication Medication Date Date Medication? Clinician (SIG) Name Name predniSONE 2020-03- Yes [id number] 40mg Take 2 Univers 20 mg 05-02 9100 tablets by ity of tablet 00:00: 05:59 mouth [place] 00 :00 daily for Medical 5 days. Branch acetaminoph 2020-03- No 1{tbl} 1 tablet, Univers en-codeine 05-01 Oral, ity of (TYLENOL 20:00: 19:20 ONCE, 1 [place] #3) 300-30 00 :00 dose, On Medic al mg tablet 1 [facility] tablet 02/28/21 at 1400, REINA ketorolac 2020-03- [...] :00 1 dose, On Med ical injection [facility] Branch 10 mg 02/28/21 at 1400, STAT ibuprofen 2020-03 Yes [id number] 800mg Take 1 Univers 800 mg 2- 9100 tablet by ity of tablet 00:00: mouth [place] 00 every 8 Medical (eight) Branch hours as needed for Pain (scale 4-6). ibuprofen 2020-03 Yes [id number] 800mg Take 1 Univers 800 mg 2- [...] No 1{tbl} 1 tablet, Univers -acetaminop 0-29 - Oral, ity of hen (NORCO 21:15: 20:44 ONCE, 1 [place] as 5) 5-325 mg 00 :00 dose, On Medi eloy tablet 1 Fri Branch tablet 01/18/21 at 1615, REINA ibuprofen 2020-03 Yes [id number] 600mg Take 1 Univers 600 mg 0-29 [id number] tablet by ity of tablet 00:00: mouth [place] 00 every 6 Medical (six) Branch hours as needed for Pain (scale 4-6). ibuprofen 2020-03 Yes [id number] 600mg Take 1 Univers 600 mg 0-29 [id number] tablet by ity of tablet 00:00: mouth [place] 00 every 6 Medical (six) Branch hours as needed for Pain (scale 4-6). ibuprofen 2020-03 Yes [id number] 600mg Take 1 Univers 600 mg 0-29 [id number] tablet by ity of tablet 00:00: mouth [place] 00 every 6 Medical (six) Branch hours as needed for Pain (scale 4-6). ibuprofen 2020-03 Yes [id number] 600mg Take 1 Univers 600 mg 0-29 [id number] tablet by ity of tablet 00:00: mouth [place] 00 every 6 Medical (six) Branch hours as needed for Pain (scale 4-6). ibuprofen 2020-03 Yes [id number] 600mg Take 1 Univers 600 mg 0-29 [id number] tablet by ity of tablet 00:00: mouth [place] 00 every 6 Medical (six) Branch hours as needed for Pain (scale 4-6). ibuprofen 2020-03 Yes [id number] 600mg Take 1 Univers 600 mg 0-29 [id number] tablet by ity of tablet 00:00: mouth [place] 00 every 6 Medical (six) Branch hours as needed for Pain (scale 4-6). ibuprofen 2020-03 Yes [id number] 600mg Take 1 Univers 600 mg 0-29 [id number] tablet by ity of tablet 00:00: mouth [place] 00 every 6 Medical (six) Branch hours as needed for Pain (scale 4-6). ibuprofen 2020-03 Yes [id number] 600mg Take 1 Univers 600 mg 0-29 [id number] tablet by ity of tablet 00:00: mouth [place] 00 every 6 Medical (six) Branch hours as needed for Pain (scale 4-6). ibuprofen 2020-03 Yes [id number] 600mg Take 1 Univers 600 mg 0-29 [id number] tablet by ity of tablet 00:00: mouth [place] 00 every 6 Medical (six) Branch hours as needed for Pain (scale 4-6). ibuprofen 2020-03 Yes [id number] 600mg Take 1 Univers 600 mg 0-29 [id number] tablet by ity of tablet 00:00: mouth [place] 00 every 6 Medical (six) Branch hours as needed for Pain (scale 4-6). ibuprofen 2020-03 Yes [id number] 600mg Take 1 Univers 600 mg 0-29 [id number] tablet by ity of tablet 00:00: mouth [place] 00 every 6 Medical (six) Branch hours as needed for Pain (scale 4-6). HYDROcodone 2020-03- Yes [id number] 1{tbl} Take 1 U nivers -acetaminop 0-29 -06 tablet by it y of hen (NORCO) 00:00: 04:59 [place] 7.5-325 mg 00 :00 every 8 Medica l per tablet (eight) Branch hours as needed for Pain for up to 7 days. Indication s: acute pain citalopram Yes 40mg Take 40 mg U nivers 40 mg 9-16 by mouth ity of tablet 15:10: daily. [place] [address] Medical Branch citalopram Yes 40mg Take 40 mg U nivers 40 mg 9-16 by mouth ity of tablet 15:10: daily. [place] [address] Medical Branch citalopram Yes 40mg Take 40 mg U nivers 40 mg 9-16 by mouth ity of tablet 15:10: daily. [place] [address] Medical Branch citalopram 2021-0 Yes 40mg Take 40 mg U nivers 40 mg 9-16 by mouth ity of tablet 15:10: daily. [address] Branch citalopram 0 Yes 40mg Take 40 mg U nivers 40 mg 9-16 by mouth ity of tablet 15:10: daily. [address] Branch citalopram 0 Yes 40mg Take 40 mg U nivers 40 mg 9-16 by mouth ity of tablet 15:10: daily. [address] Branch citalopram 0 Yes 40mg Take 40 mg U nivers 40 mg 9-16 by mouth ity of tablet 15:10: daily. [address] Branch citalopram 0 Yes 40mg Take 40 mg U nivers 40 mg 9-16 by mouth ity of tablet 15:10: daily. [address] Branch citalopram 0 Yes 40mg Take 40 mg U nivers 40 mg 9-16 by mouth ity of tablet 15:10: daily. [address] Branch citalopram 0 Yes 40mg Take 40 mg U nivers 40 mg 9-16 by mouth ity of tablet 15:10: daily. [address] Branch citalopram 0 Yes 40mg Take 40 mg U nivers 40 mg 9-16 by mouth ity of tablet 15:10: daily. [address] Branch citalopram 0 Yes 40mg Take 40 mg U nivers 40 mg 9-16 by mouth ity of tablet 15:10: daily. [address] citalopram 0 Yes 40mg Take 40 mg U nivers 40 mg 9-16 by mouth ity of tablet 15:10: daily. [address] Branch citalopram 0 Yes 40mg Take 40 mg U nivers 40 mg 9-16 by mouth ity of tablet 15:10: daily. [address] Branch citalopram 0 Yes 40mg Take 40 mg U nivers 40 mg 9-16 by mouth ity of tablet 15:10: daily. [address] risperiDONE 2020-0 2020- No 4mg Take 4 mg Univers 4 mg tablet 12-0616 by mouth ity of 15:09: 00:00 every [place] 20 :00 evening. Medical Branch risperiDONE 2020-2020- No 4mg Take 4 mg Univers 4 mg tablet 12-06 by mouth ity of 15:09: 00:00 every [place] 20 :00 evening. Medical Branch risperiDONE 2020-2020- No 4mg Take 4 mg Univers 4 mg tablet 12-06 by mouth ity of 15:09: 00:00 every [place] 20 :00 evening. Medical Branch risperiDONE 2020-2020- No 4mg Take 4 mg Univers 4 mg tablet 12-06 by mouth ity of 15:09: 00:00 every [place] 20 :00 evening. Medical Branch propranoloL Yes 10mg Take 10 mg Univers 10 mg 9-16 by mouth 2 ity of tablet 14:47: (two) [place] 03 times Medical daily. Branch Cholecalcif Yes 1{tbl} Take 1 Un bam sunday, 9-16 tablet by ity of Vitamin D3, 14:47: mouth. [place] 50 mcg 03 Medical (2,000 Branch unit) capsule propranoloL 2020-0 Yes 10mg Take 10 mg Univers 10 mg 9-16 by mouth 2 ity of tablet 14:47: (two) [place] 03 times Medical daily. Branch Cholecalcif Yes 1{tbl} Take 1 Un bam sunday, 9-16 tablet by ity of Vitamin D3, 14:47: mouth. [place] 50 mcg 03 Medical (2,000 Branch unit) capsule propranoloL 2020-0 Yes 10mg Take 10 mg Univers 10 mg 9-16 by mouth 2 ity of tablet 14:47: (two) [place] 03 times Medical daily. Branch Cholecalcif Yes 1{tbl} Take 1 Un bam sunday, 9-16 tablet by ity of Vitamin D3, 14:47: mouth. [place] 50 mcg 03 Medical (2,000 Branch unit) capsule propranoloL 2020-0 Yes 10mg Take 10 mg Univers 10 mg 9-16 by mouth 2 ity of tablet 14:47: (two) [place] 03 times Medical daily. Branch Cholecalcif Yes 1{tbl} Take 1 Un bam sunday, 9-16 tablet by ity of Vitamin D3, 14:47: mouth. [place] 50 mcg 03 Medical (2,000 Branch unit) capsule propranoloL 2021-0 Yes 10mg Take 10 mg Univers 10 mg 9-16 by mouth 2 ity of tablet 14:47: (two) [place] 03 times Medical daily. Branch Cholecalcif 2021-0 Yes 1{tbl} Take 1 Un bam sunday, 9-16 tablet by ity of Vitamin D3, 14:47: mouth. [place] 50 mcg 03 Medical (2,000 Branch unit) capsule propranoloL 2021-0 Yes 10mg Take 10 mg Univers 10 mg 9-16 by mouth 2 ity of tablet 14:47: (two) [place] 03 times Medical daily. Branch Cholecalcif 2021-0 Yes 1{tbl} Take 1 Un bam sunday, 9-16 tablet by ity of Vitamin D3, 14:47: mouth. [place] 50 mcg 03 Medical (2,000 Branch unit) capsule propranoloL 2021-0 Yes 10mg Take 10 mg Univers 10 mg 9-16 by mouth 2 ity of tablet 14:47: (two) [place] 03 times Medical daily. Branch Cholecalcif 2021-0 Yes 1{tbl} Take 1 Un bam sunday, 9-16 tablet by ity of Vitamin D3, 14:47: mouth. [place] 50 mcg 03 Medical (2,000 Branch unit) capsule propranoloL 2021-0 Yes 10mg Take 10 mg Univers 10 mg 9-16 by mouth 2 ity of tablet 14:47: (two) [place] 03 times Medical daily. Branch Cholecalcif 2021-0 Yes 1{tbl} Take 1 Un bam sunday, 9-16 tablet by ity of Vitamin D3, 14:47: mouth. [place] 50 mcg 03 Medical (2,000 Branch unit) capsule propranoloL 2021-0 Yes 10mg Take 10 mg Univers 10 mg 9-16 by mouth 2 ity of tablet 14:47: (two) [place] 03 times Medical daily. Branch Cholecalcif 2021-0 Yes 1{tbl} Take 1 Un bam sunday, 9-16 tablet by ity of Vitamin D3, 14:47: mouth. [place] 50 mcg 03 Medical (2,000 Branch unit) capsule propranoloL 2021-0 Yes 10mg Take 10 mg Univers 10 mg 9-16 by mouth 2 ity of tablet 14:47: (two) [place] 03 times Medical daily. Branch Cholecalcif 2021-0 Yes 1{tbl} Take 1 Un bam sunday, [...] 03 Medical (2,000 Branch unit) capsule doxycycline 2021-0 202- No 100mg 100 mg, U nivers hyclate 10-21 Oral, ity of (Vibramycin 04:30: 03:34 [place] 1 [place] capsule 00 :00 dose, Sat Medic al 100 mg 10/20/20 at Branch 2330, REINA
Re ason for Anti-Infec tive: Documented Infection< br>Documen judit Infection Site: Skin / Soft Tissue
Duration of Therapy: Other (see Comments) Cholecalcif 0 Yes 1{tbl} Take 1 Un bam sunday, 8-01 tablet by ity of Vitamin D3, 03:37: [place] 50 mcg 42 Medical (2,000 Branch unit) capsule Cholecalcif Yes 1{tbl} Take 1 Un bam sunday, 8- tablet by ity of Vitamin D3, 03:37: [...] 42 Medical (2,000 Branch unit) capsule pravastatin No pravastati Univers 10 mg 10-21 n 10 mg ity of tablet 03:37: 00:00 tablet [place] 42 :00 Take 1 Medical tablet Branch every day by oral route. venlafaxine 2020- No 150mg Take 150 Univers XR 150 mg 10-21 mg by ity of 24 hr 03:19: 00:00 mouth [place] capsule 53 :00 daily. Medical Branch nitroglycer 2020- No .4mg Place 0.4 Univers in 0.4 mg 10-21 mg under ity o f sublingual 03:19: 00:00 the tongue [place] tablet 53 :00 every 5 Medical (five) Branch minutes as needed for Chest pain. atorvastati 2020- No 10mg Take 10 mg Univers n 10 mg 10-21 by mouth ity of tablet 03:19: 00:00 at [place] 53 :00 bedtime. Medical Branch cyclobenzap 2020- No 5mg Take 5 mg Univers rine 5 mg 10-21 by mouth 3 ity of tablet 03:19: 00:00 (three) [place] 53 :00 times Medical daily. Branch doxycycline 2020- No [id number] 100mg Take 1 Univers monohydrate 7- 08-11 capsule by i ty of 100 mg 00:00: 04:59 mouth 2 [place] capsule 00 :00 (two) Medical times Branch daily for 10 days. doxycycline 2020- No [id number] 100mg Take 1 Univers monohydrate 7-31 08-11 capsule by i ty of 100 mg 00:00: 04:59 mouth 2 [place] capsule 00 :00 (two) Medical times Branch daily for 10 days. doxycycline 2020- No [id number] 100mg Take 1 Univers monohydrate 7-31 08-11 capsule by i ty of 100 mg 00:00: 04:59 mouth 2 [place] capsule 00 :00 (two) Medical times Branch daily for 10 days. doxycycline 2020- No [id number] 100mg Take 1 Univers monohydrate 7-31 08-11 capsule by i ty of 100 mg 00:00: 04:59 mouth 2 [place] capsule 00 :00 (two) Medical times Branch daily for 10 days. doxycycline 2020- No [id number] 100mg Take 1 Univers monohydrate 7-31 08-11 capsule by i ty of 100 mg 00:00: 04:59 mouth 2 [place] capsule 00 :00 (two) Medical times Branch daily for 10 days. doxycycline 2020- No [id number] 100mg Take 1 Univers monohydrate 7-31 08-11 capsule by i ty of 100 mg 00:00: 04:59 mouth 2 [place] capsule 00 :00 (two) Medical times Branch daily for 10 days. triamcinolo 2020- No [id number] Apply to [place] [address] 11-17 area(s) 2 ity of acetonide 00:00: 04:59 (two) [place] 0.1 % cream 00 :00 times Medical daily for Branch 30 days. triamcinolo 2020- No [id number] Apply to [place] [address] 11-17 area(s) 2 ity of acetonide 00:00: 04:59 (two) [place] 0.1 % cream 00 :00 times Medical daily for Branch 30 days. triamcinolo 2020-2020- No [id number] Apply to [place] [address] 11-17 area(s) 2 ity of acetonide 00:00: 04:59 (two) [place] 0.1 % cream 00 :00 times Medical daily for Branch 30 days. triamcinolo 2020- No [id number] Apply to [place] [address] 11-17 area(s) 2 ity of acetonide 00:00: 04:59 (two) [place] 0.1 % cream 00 :00 times Medical daily for Branch 30 days. triamcinolo 2020- No [id number] Apply to [place] [address] area(s) 2 ity of acetonide 00:00: 04:59 (two) [place] 0.1 % cream 00 :00 times Medical daily for Branch 30 days. triamcinolo 2020- No [id number] Apply to [place] [address] 11-17 area(s) 2 ity of acetonide 00:00: 04:59 (two) [place] 0.1 % cream 00 :00 times Medical daily for Branch 30 days. triamcinolo 2020-2020- No [id number] Apply to [place] [address] 11-17 area(s) 2 ity of acetonide 00:00: 04:59 (two) [place] 0.1 % cream 00 :00 times Medical daily for Branch 30 days. triamcinolo 2020- No [id number] Apply to [place] [address] area(s) 2 ity of acetonide 00:00: 04:59 (two) [place] 0.1 % cream 00 :00 times Medical daily for Branch 30 days. triamcinolo 2020-2020- No [id number] Apply to [facility] 10-17 area(s) 2 ity of acetonide 00:00: 04:59 (two) [place] 0.1 % cream 00 :00 times Medical daily for Branch 30 days. triamcinolo 2020-2020- No [id number] Apply to [facility] 10-17 area(s) 2 ity of acetonide 00:00: 04:59 (two) [place] 0.1 % cream 00 :00 times Medical daily for Branch 30 days. triamcinolo 2020- No [id number] Apply to [facility] 10-17 area(s) 2 ity of acetonide 00:00: 04:59 (two) [place] 0.1 % cream 00 :00 times Medical daily for Branch 30 days. ALPRAZolam Yes .25mg Take 0.25 U nivers 0.25 mg 7-23 mg by ity of tablet 00:00: mouth. [place] [facility] ALPRAZolam Yes .25mg Take 0.25 U nivers 0.25 mg 7-23 mg by ity of tablet 00:00: mouth. [place] [facility] ALPRAZolam Yes .25mg Take 0.25 U nivers 0.25 mg 7-23 mg by ity of tablet 00:00: mouth. [place] [facility] ALPRAZolam Yes .25mg Take 0.25 U nivers 0.25 mg 7-23 mg by ity of tablet 00:00: mouth. [place] [facility] ALPRAZolam 0 Yes .25mg Take 0.25 U nivers 0.25 mg 7-23 mg by ity of tablet 00:00: mouth. [place] [facility] ALPRAZolam 0 Yes .25mg Take 0.25 U nivers 0.25 mg 7-23 mg by ity of tablet 00:00: mouth. [place] [facility] ALPRAZolam 0 Yes .25mg Take 0.25 U nivers 0.25 mg 7-23 mg by ity of tablet 00:00: mouth. [place] [facility] ALPRAZolam 0 Yes .25mg Take 0.25 U nivers 0.25 mg 7-23 mg by ity of tablet 00:00: mouth. Medical Branch ALPRAZolam 0 Yes .25mg Take 0.25 U nivers 0.25 mg 7-23 mg by ity of tablet 00:00: mouth. Medical Branch ALPRAZolam 0 Yes .25mg Take 0.25 U nivers 0.25 mg 7-23 mg by ity of tablet 00:00: mouth. Medical Branch ALPRAZolam 2020-0 Yes .25mg Take 0.25 U nivers 0.25 mg 7-23 mg by ity of tablet 00:00: mouth. [place] [facility] ALPRAZolam 0 Yes .25mg Take 0.25 U nivers 0.25 mg 7-23 mg by ity of tablet 00:00: mouth. [place] [facility] ALPRAZolam 0 Yes .25mg Take 0.25 U nivers 0.25 mg 7-23 mg by ity of tablet 00:00: mouth. Medical Branch ALPRAZolam 0 Yes .25mg Take 0.25 U nivers 0.25 mg 7-23 mg by ity of tablet 00:00: mouth. [place] [facility] ALPRAZolam 0 Yes .25mg Take 0.25 U nivers 0.25 mg 7-23 mg by ity of tablet 00:00: mouth. Medical Branch ALPRAZolam 2020-0 Yes .25mg Take 0.25 U nivers 0.25 mg 7-23 mg by ity of tablet 00:00: mouth. Medical Branch ALPRAZolam 2020-0 Yes .25mg Take 0.25 U nivers 0.25 mg 7-23 mg by ity of tablet 00:00: mouth. [place] [facility] ALPRAZolam 0 Yes .25mg Take 0.25 U nivers 0.25 mg 7-23 mg by ity of tablet 00:00: mouth. [place] [facility] ALPRAZolam 0 Yes .25mg Take 0.25 U nivers 0.25 mg 7-23 mg by ity of tablet 00:00: mouth. Medical Branch ALPRAZolam 0 Yes .25mg Take 0.25 U nivers 0.25 mg 7-23 mg by ity of tablet 00:00: mouth. [place] 00 Medical Branch predniSONE 2020-0 2020- No 60mg 60 mg, Univ ers (DELTASONE) 7-20 07-20 Oral, ity of tablet 60 16:00: 15:13 ONCE, 1 [place] mg 00 :00 dose, [facility] 10/09/20 at Branch 1100, REINA loratadine 0 Yes [id number] 10mg Take 1 Univers 10 mg 7-20 tablet by ity of tablet 00:00: mouth [place] 00 daily. Medical Branch loratadine 0 Yes [id number] 10mg Take 1 Univers 10 mg 7-20 tablet by ity of tablet 00:00: mouth [place] 00 daily. Medical Branch loratadine 0 Yes [id number] 10mg Take 1 Univers 10 mg 7-20 tablet by ity of tablet 00:00: mouth [place] 00 daily. Medical Branch loratadine 0 Yes [id number] 10mg Take 1 Univers 10 mg 7-20 tablet by ity of tablet 00:00: mouth [place] 00 daily. Medical Branch loratadine 0 Yes [id number] 10mg Take 1 Univers 10 mg 7-20 tablet by ity of tablet 00:00: mouth [place] 00 daily. Medical Branch loratadine 0 Yes [id number] 10mg Take 1 Univers 10 mg 7-20 tablet by ity of tablet 00:00: mouth [place] 00 daily. Medical Branch loratadine 0 Yes [id number] 10mg Take 1 Univers 10 mg 7-20 tablet by ity of tablet 00:00: mouth [place] 00 daily. [facility] loratadine 0 Yes [id number] 10mg Take 1 Univers 10 mg 7-20 tablet by ity of tablet 00:00: mouth [place] 00 daily. [facility] loratadine 0 Yes [id number] 10mg Take 1 Univers 10 mg 7-20 tablet by ity of tablet 00:00: mouth [place] 00 daily. [facility] loratadine 0 Yes [id number] 10mg Take 1 Univers 10 mg 7-20 tablet by ity of tablet 00:00: mouth [place] 00 daily. [facility] loratadine 2021-0 Yes [id number] 10mg Take 1 Univers 10 mg 7-20 tablet by ity of tablet 00:00: mouth [place] 00 daily. Medical Branch loratadine Yes [id number] 10mg Take 1 Univers 10 mg 7-20 tablet by ity of tablet 00:00: mouth [place] 00 daily. Medical Branch loratadine 2020- No [id number] 10mg Take 1 Univers 10 mg 7-20 09-16 tablet by ity of tablet 00:00: 00:00 mouth [place] 00 :00 daily. Medical Branch loratadine 2020- No [id number] 10mg Take 1 Univers 10 mg 7-20 09-16 tablet by ity of tablet 00:00: 00:00 mouth [place] 00 :00 daily. Medical Branch loratadine 2020- No [id number] 10mg Take 1 Univers 10 mg 7-20 09-16 tablet by ity of tablet 00:00: 00:00 mouth [place] 00 :00 daily. Medical Branch loratadine 2020- No [id number] 10mg Take 1 Univers 10 mg 7-20 09-16 tablet by ity of tablet 00:00: 00:00 mouth [place] 00 :00 daily. Medical Branch predniSONE 2020- No [id number] 60mg Take 3 Univers 20 mg 7-20 [...] mcg/actuati 00:00: on inhaler Medical Branch albuterol 0 Yes 2{puff} Inhale 2 U nivers 90 7-16 Puffs. ity of mcg/actuati 00:00: on inhaler Medical Branch albuterol 0 Yes 2{puff} Inhale 2 U nivers 90 7-16 Puffs. ity of mcg/actuati 00:00: on inhaler Medical Branch albuterol 0 Yes 2{puff} Inhale 2 U nivers 90 7-16 Puffs. ity of mcg/actuati 00:00: on inhaler Medical Branch albuterol Yes 2{puff} Inhale 2 U nivers 90 7-16 Puffs. ity of mcg/actuati 00:00: on inhaler 00 Medical Branch ibuprofen 2020-0 Yes [id number] 800mg Take 1 Univers 800 mg 2-21 [id number] tablet by ity of tablet 00:00: mouth every 8 Medical (eight) Branch hours as needed for Pain (scale 4-6). ibuprofen 2020-0 Yes [id number] 800mg Take 1 [facility] 800 mg 2-21 [id number] tablet by ity of tablet 00:00: mouth every 8 Medical (eight) Branch hours as needed for Pain (scale 4-6). ibuprofen 2020-0 Yes [id number] 800mg Take 1 Univers 800 mg 2-21 [id number] tablet by ity of tablet 00:00: [facility] every 8 Medical (eight) Branch hours as needed for Pain (scale 4-6). ibuprofen 2020-0 Yes [id number] 800mg Take 1 [facility] 800 mg 2-21 [id number] tablet by ity of tablet 00:00: mouth every 8 Medical (eight) Branch hours as needed for Pain (scale 4-6). ibuprofen 2020-0 Yes [id number] 800mg Take 1 [facility] 800 mg 2-21 [id number] tablet by ity of tablet 00:00: mouth every 8 Medical (eight) Branch hours as needed for Pain (scale 4-6). ibuprofen 2020-0 Yes [id number] 800mg Take 1 [facility] 800 mg 2-21 [id number] tablet by ity of tablet 00:00: mouth [place] 00 every 8 Medical (eight) Branch hours as needed for Pain (scale 4-6). ibuprofen 2020-0 Yes [id number] 800mg Take 1 [facility] 800 mg 2-21 [id number] tablet by ity of tablet 00:00: mouth [place] 00 every 8 Medical (eight) Branch hours as needed for Pain (scale 4-6). ibuprofen 2020-0 Yes [id number] 800mg Take 1 [facility] 800 mg 2-21 [id number] tablet by ity of tablet 00:00: mouth [place] 00 every 8 Medical (eight) Branch hours as needed for Pain (scale 4-6). ibuprofen 0 Yes [id number] 800mg Take 1 [facility] 800 mg 2-21 [id number] tablet by ity of tablet 00:00: mouth [place] 00 every 8 Medical (eight) Branch hours as needed for Pain (scale 4-6). ibuprofen Yes [id number] 800mg Take 1 [facility] 800 mg 2-21 [id number] tablet by ity of tablet 00:00: mouth [place] 00 every 8 Medical (eight) Branch hours as needed for Pain (scale 4-6). ibuprofen 2020- No [id number] 800mg Take 1 [facility] 800 mg 2-21 07-31 [id number] tablet by ity o f tablet 00:00: 00:00 mouth [place] 00 :00 every 8 Medical (eight) Branch hours as needed for Pain (scale 4-6). HYDROcodone 2019-03 2020- No 1{tbl} 1 tablet, [facility] -acetaminop 04-05 Oral, ity of hen (NORCO) 20:15: 19:20 [place]CE, 1 [place] 10-325 [place] 00 :00 dose, Sat Medic al tablet 1 02/04/20 Branch tablet at 1415, Routine dexamethaso 2019-03 2020- No 10mg 10 mg, Uni vers ne 04-05 Intramuscu ity of (DECADRON 20:15: 19:20 lar, ONCE, [place] PHOSPHATE) 00 :00 1 dose, Medica l injection Sat Branch 10 mg 02/04/20 at 1415, STAT acetaminoph 2019-03 Yes [id number] 1{tbl} Take 1 Un bam en-codeine -14 tablet by ity of 300-30 mg 00:00: mouth [place] tablet 00 every 4 Medical (four) Branch hours as needed for Pain (scale 4-6). Indication s: acute pain ibuprofen 2019-03 Yes [id number] 600mg Take 1 [facility] 600 mg 1-14 [...] Indication s: acute pain ibuprofen 2019-03 Yes [id number] 600mg Take 1 [facility] 600 mg 1-14 [...] Indication s: acute pain ibuprofen 2019-03 Yes [id number] 600mg Take 1 [facility] 600 mg 1-14 [...] Indication s: acute pain ibuprofen 2019-03 Yes [id number] 600mg Take 1 [facility] 600 mg 1-14 [...] Indication s: acute pain ibuprofen 2019-03 Yes [id number] 600mg Take 1 [facility] 600 mg 1-14 [...] Indication s: acute pain ibuprofen 2019-03 Yes [id number] 600mg Take 1 [facility] 600 mg 1-14 [...] Indication s: acute pain ibuprofen 2019-03 Yes [id number] 600mg Take 1 [facility] 600 mg 1-14 [...] Indication s: acute pain ibuprofen 2019-03 Yes [id number] 600mg Take 1 [facility] 600 mg 1-14 [...] Indication s: acute pain ibuprofen 2019-03 Yes [id number] 600mg Take 1 [facility] 600 mg 1-14 [...] Indication s: acute pain ibuprofen 2019-03 Yes [id number] 600mg Take 1 [facility] 600 mg 1-14 [...] Indication s: acute pain ibuprofen 2019-03 Yes [id number] 600mg Take 1 [facility] 600 mg 1-14 [...] Indication s: acute pain ibuprofen 2019-03 Yes [id number] 600mg Take 1 [facility] 600 mg 1-14 [...] Indication s: acute pain ibuprofen 2019-03 Yes [id number] 600mg Take 1 [facility] 600 mg 1-14 tablet by ity of tablet 00:00: mouth [place] 00 every 8 Medical (eight) Branch hours as needed for Pain (scale 4-6). acetaminoph 2019-03- No [id number] 1{tbl} Take 1 U nivers en-codeine 04-0531 tablet by ity of 300-30 mg 00:00: 00:00 mouth [place] tablet 00 :00 every 4 Medical (four) Branch hours as needed for Pain (scale 4-6). Indication s: acute pain ibuprofen 2019-03- No [id number] 600mg Take 1 [facility] 600 mg 04-0531 tablet by ity of tablet 00:00: 00:00 [...] mouth 3 ity of tablet 15:37: (three) [place] 07 times Medical daily. Branch cyclobenzap 2020-0 Yes 5mg Take 5 mg U nivers rine 5 mg 8-31 by mouth 3 ity of tablet 15:37: (three) [place] 07 times Medical daily. Branch cyclobenzap 2020-0 Yes 5mg Take 5 mg U nivers rine 5 mg 8-31 by mouth 3 ity of tablet 15:37: (three) [place] 07 times Medical daily. Branch cyclobenzap 2020-0 Yes 5mg Take 5 mg U nivers rine 5 mg 8-31 by mouth 3 ity of tablet 15:37: (three) [place] 07 times Medical daily. Branch cyclobenzap 2020-0 Yes 5mg Take 5 mg U nivers rine 5 mg 8-31 by mouth 3 ity of tablet 15:37: (three) [place] 07 times Medical daily. Branch cyclobenzap 2020-0 [...] by mouth ity of tablet 15:35: at [place] [address] bedtime. Medical Branch atorvastati 2020-0 Yes 10mg Take 10 mg [facility] n 10 mg 8-31 by mouth ity of tablet 15:35: at [place] [address] bedtime. Medical Branch atorvastati 2020-0 Yes 10mg Take 10 mg [facility] n 10 mg 8-31 by mouth ity of tablet 15:35: at [place] [address] bedtime. Medical Branch atorvastati 2020-0 Yes 10mg Take 10 mg [facility] n 10 mg 8-31 by mouth ity of tablet 15:35: at [place] [address] bedtime. Medical Branch atorvastati 2020-0 Yes 10mg Take 10 mg [facility] n 10 mg 8-31 by mouth ity of tablet 15:35: at [place] [address] bedtime. Medical Branch atorvastati 2020-0 Yes 10mg Take 10 mg [facility] n 10 mg 8-31 by mouth ity of tablet 15:35: at [place] [address] bedtime. Medical Branch atorvastati 2020-0 Yes 10mg Take 10 mg [facility] n 10 mg 8-31 by mouth ity of tablet 15:35: at [place] [address] bedtime. Medical Branch atorvastati 2020-0 Yes 10mg Take 10 mg [facility] n 10 mg 8-31 by mouth ity of tablet 15:35: at [place] [address] bedtime. Medical Branch atorvastati 2020-0 Yes 10mg Take 10 mg [facility] n 10 mg 8-31 by mouth ity of tablet 15:35: at [place] [address] bedtime. Medical Branch atorvastati 2020-0 Yes 10mg Take 10 mg [facility] n 10 mg 8-31 by mouth ity of tablet 15:35: at [place] [address] bedtime. Medical Branch atorvastati 2020-0 Yes 10mg Take 10 mg [facility] n 10 mg 8-31 by mouth ity of tablet 15:35: at [place] [address] bedtime. Medical Branch atorvastati 2020-0 Yes 10mg Take 10 mg [facility] n 10 mg 8-31 by mouth ity of tablet 15:35: at [place] [address] bedtime. Medical Branch atorvastati 2020-0 Yes 10mg Take 10 mg [facility] n 10 mg 8-31 by mouth ity of tablet 15:35: at [place] [address] bedtime. Medical Branch atorvastati 2020-0 Yes 10mg Take 10 mg [facility] n 10 mg 8-31 by mouth ity of tablet 15:35: at [place] [address] bedtime. Medical Branch atorvastati 2020-0 Yes 10mg Take 10 mg [facility] n 10 mg 8-31 by mouth ity of tablet 15:35: at [place] [address] bedtime. Medical Branch atorvastati 2020-0 Yes 10mg Take 10 mg [facility] n 10 mg 8-31 by mouth ity of tablet 15:35: at [place] [address] bedtime. Medical Branch rosuvastati 2020-0 2020- No [...] 8-31 by mouth. ity of tablet 15:35: [place] [address] Medical Branch propranoloL 2020-0 Yes 10mg Take 10 mg [facility] 10 mg 8-31 by mouth 2 ity of tablet 15:35: (two) [place] 36 times Medical daily. Branch aspirin 81 2020-0 Yes 81mg Take 81 mg U nivers mg EC 8-31 by mouth. ity of tablet 15:35: [place] [address] Medical Branch propranoloL 2020-0 Yes 10mg Take 10 mg [facility] 10 mg 8-31 by mouth 2 ity of tablet 15:35: (two) [place] 36 times Medical daily. Branch aspirin 81 2020-0 Yes 81mg Take 81 mg U nivers mg EC 8-31 by mouth. ity of tablet 15:35: [place] [address] Medical Branch propranoloL 2020-0 Yes 10mg Take 10 mg [facility] 10 mg 8-31 by mouth 2 ity of tablet 15:35: (two) [place] 36 times Medical daily. Branch aspirin 81 2020-0 Yes 81mg Take 81 mg U nivers mg EC 8-31 by mouth. ity of tablet 15:35: [place] [address] Medical Branch aspirin 81 2020-0 Yes 81mg Take 81 mg U nivers mg EC 8-31 by mouth. ity of tablet 15:35: [place] [address] Medical Branch propranoloL 2020-0 Yes 10mg Take 10 mg [facility] 10 mg 8-31 by mouth 2 ity of tablet 15:35: (two) [place] 36 times Medical daily. Branch aspirin 81 2020-0 Yes 81mg Take 81 mg U nivers mg EC 8-31 by mouth. ity of tablet 15:35: [place] [address] Medical Branch propranoloL 2020-0 Yes 10mg Take 10 mg [facility] 10 mg 8-31 by mouth 2 ity of tablet 15:35: (two) [place] 36 times Medical daily. Branch aspirin 81 2020-0 Yes 81mg Take 81 mg U nivers mg EC 8-31 by mouth. ity of tablet 15:35: [place] [address] Medical Branch propranoloL 2020-0 Yes 10mg Take 10 mg [facility] 10 mg 8-31 by mouth 2 ity of tablet 15:35: (two) [place] 36 times Medical daily. Branch aspirin 81 2020-0 Yes 81mg Take 81 mg U nivers mg EC 8-31 by mouth. ity of tablet 15:35: [address] Branch propranoloL 2020-0 Yes 10mg Take 10 mg [facility] 10 mg 8-31 by mouth 2 ity of tablet 15:35: (two) [place] 36 times Medical daily. Branch aspirin 81 2020-0 Yes 81mg Take 81 mg U nivers mg EC 8-31 by mouth. ity of tablet 15:35: [place] [address] Medical Branch propranoloL 2020-0 Yes 10mg Take 10 mg [facility] 10 mg 8-31 by mouth 2 ity of tablet 15:35: (two) [place] 36 times Medical daily. Branch aspirin 81 2020-0 Yes 81mg Take 81 mg U nivers mg EC 8-31 by mouth. ity of tablet 15:35: [place] [address] Medical Branch propranoloL 2020-0 Yes 10mg Take 10 mg [facility] 10 mg 8-31 by mouth 2 ity of tablet 15:35: (two) [place] 36 times Medical daily. Branch aspirin 81 2020-0 Yes 81mg Take 81 mg U nivers mg EC 8-31 by mouth. ity of tablet 15:35: [address] Branch propranoloL 2020-0 Yes 10mg Take 10 mg [facility] 10 mg 8-31 by mouth 2 ity of tablet 15:35: (two) [place] 36 times Medical daily. Branch aspirin 81 2020-0 Yes 81mg Take 81 mg U nivers mg EC 8-31 by mouth. ity of tablet 15:35: [place] [address] Medical Branch propranoloL 2020-0 Yes 10mg Take 10 mg [facility] 10 mg 8-31 by mouth 2 ity of tablet 15:35: (two) [place] 36 times Medical daily. Branch aspirin 81 2020-0 Yes 81mg Take 81 mg U nivers mg EC 8-31 by mouth. ity of tablet 15:35: [address] Branch propranoloL 2020-0 Yes 10mg Take 10 mg [facility] 10 mg 8-31 by mouth 2 ity of tablet 15:35: (two) [place] 36 times Medical daily. Branch aspirin 81 2020-0 Yes 81mg Take 81 mg U nivers mg EC 8-31 by mouth. ity of tablet 15:35: [address] Branch propranoloL 2020-0 Yes 10mg Take 10 mg [facility] 10 mg 8-31 by mouth 2 ity of tablet 15:35: (two) [place] 36 times Medical daily. Branch aspirin 81 2020-0 Yes 81mg Take 81 mg U nivers mg EC 8-31 by mouth. ity of tablet 15:35: [address] Branch propranoloL 2020-0 Yes 10mg Take 10 mg [facility] 10 mg 8-31 by mouth 2 ity of tablet 15:35: (two) [place] 36 times Medical daily. Branch aspirin 81 2020-0 Yes 81mg Take 81 mg U nivers mg EC 8-31 by mouth. ity of tablet 15:35: [address] propranoloL 2020-0 Yes 10mg Take 10 mg [facility] 10 mg 8-31 by mouth 2 ity of tablet 15:35: (two) [place] 36 times Medical daily. Branch aspirin 81 2020-0 Yes 81mg Take 81 mg U nivers mg EC 8-31 by mouth. ity of tablet 15:35: [address] propranoloL 2020-0 Yes 10mg Take 10 mg [facility] 10 mg 8-31 by mouth 2 ity of tablet 15:35: (two) [place] 36 times Medical daily. Branch aspirin 81 2020-0 Yes 81mg Take 81 mg U nivers mg EC 8-31 by mouth. ity of tablet 15:35: [address] propranoloL 2020-0 Yes 10mg Take 10 mg [facility] 10 mg 8-31 by mouth 2 ity of tablet 15:35: (two) [place] 36 times Medical daily. Branch aspirin 81 2020-0 Yes 81mg Take 81 mg U nivers mg EC 8-31 by mouth. ity of tablet 15:35: [address] Branch propranoloL 2020-0 Yes 10mg Take 10 mg [facility] 10 mg 8-31 by mouth 2 ity of tablet 15:35: (two) [place] 36 times Medical daily. Branch aspirin 81 2020-0 Yes 81mg Take 81 mg U nivers mg EC 8-31 by mouth. ity of tablet 15:35: [address] propranoloL 2020-0 Yes 10mg Take 10 mg [facility] 10 mg 8-31 by mouth 2 ity of tablet 15:35: (two) [place] 36 times Medical daily. Branch aspirin 81 2020-0 Yes 81mg Take 81 mg U nivers mg EC 8-31 by mouth. ity of tablet 15:35: [address] propranoloL 2020-0 Yes 10mg Take 10 mg [facility] 10 mg 8-31 by mouth 2 ity of tablet 15:35: (two) [place] 36 times Medical daily. Branch aspirin 81 2020-0 Yes 81mg Take 81 mg U nivers mg EC 8-31 by mouth. ity of tablet 15:35: [address] propranoloL 2020-0 Yes 10mg Take 10 mg [facility] 10 mg 8-31 by mouth 2 ity of tablet 15:35: (two) [place] 36 times Medical daily. Branch aspirin 81 2020-0 Yes 81mg Take 81 mg U nivers mg EC 8-31 by mouth. ity of tablet 15:35: [address] propranoloL 2020-0 Yes 10mg Take 10 mg [facility] 10 mg 8-31 by mouth 2 ity of tablet 15:35: (two) [place] 36 times Medical daily. Branch gabapentin 2020-0 2020- No 300mg Take 300 U nivers 100 mg 8-31 08-31 mg by ity of capsule 15:35: 00:00 mouth 4 [place] 15 :00 (four) Medical times Branch daily. gabapentin 2020-0 2020- No 300mg Take 300 U nivers 100 mg 8-31 08-31 mg by ity of capsule 15:35: 00:00 mouth 4 [place] 15 :00 (four) Medical times Branch daily. carvedilol 2020-0 2020- No 12.5mg Take 12.5 Univers 12.5 mg 8-31 08-31 mg by ity of tablet 15:35: 00:00 mouth 2 [place] 08 :00 (two) Medical times Branch daily. carvedilol 2020-0 2020- No 12.5mg Take 12.5 [facility] 12.5 mg 8-31 08-31 mg by ity of tablet 15:35: 00:00 mouth 2 [place] 08 :00 (two) Medical times Branch daily. [...] [place] capsule 24 daily. Medical Branch venlafaxine 2019-0 Yes 150mg Take 150 U nivers XR 150 mg 8-31 mg by ity of 24 hr 15:27: mouth [place] capsule 24 daily. Medical Branch venlafaxine 2019-0 Yes 150mg Take 150 U nivers XR 150 mg 8-31 mg by ity of 24 hr 15:27: mouth [place] capsule 24 daily. Medical Branch venlafaxine 2019-0 Yes 150mg Take 150 U nivers XR [...] No 3mg Take 3 mg Univers ORAL 8-31 08-31 by mouth ity of 15:26: 00:00 daily. [place] 54 :00 [facility] Branch RISPERIDONE 2020-0 2020- No 3mg Take 3 mg Univers ORAL 8-31 08-31 by mouth ity of 15:26: 00:00 daily. [place] 54 :00 Medical Branch gabapentin 2020-0 2020- No 300mg Take 300 U nivers 300 mg 8-31 08-31 mg by ity of capsule 15:26: 00:00 mouth. [place] 35 :00 Medical Branch gabapentin 2020-0 2020- No 300mg Take 300 U nivers 300 mg 8-31 08-31 mg by ity of capsule 15:26: 00:00 mouth. [place] 35 :00 [facility] Branch carvediloL 2020-0 2020- No 1{tbl} Take 1 Un bam 12.5 mg 8-31 08-31 tablet by ity of tablet 15:26: 00:00 mouth. [place] 22 :00 Medical Branch carvediloL 2020-0 2020- No 1{tbl} Take 1 Un bam 12.5 mg 8-31 08-31 tablet by ity of tablet 15:26: 00:00 mouth. [place] 22 :00 Medical Branch aspirin 81 2020-0 Yes 81mg Take 81 mg U nivers mg EC 8-31 by mouth. ity of tablet 10:35: [address] aspirin 81 2020-0 Yes 81mg Take 81 mg U nivers mg EC 8-31 by mouth. ity of tablet 10:35: [address] aspirin 81 2020-0 Yes 81mg Take 81 mg U nivers mg EC 8-31 by mouth. ity of tablet 10:35: [address] aspirin 81 2020-0 Yes 81mg Take 81 mg U nivers mg EC 8-31 by mouth. ity of tablet 10:35: [address] aspirin 81 2020-0 Yes 81mg Take 81 mg U nivers mg EC 8-31 by mouth. ity of tablet 10:35: [address] aspirin 81 2020-0 Yes 81mg Take 81 mg U nivers mg EC 8-31 by mouth. ity of tablet 10:35: [address] aspirin 81 2020-0 Yes 81mg Take 81 mg U nivers mg EC 8-31 by mouth. ity of tablet 10:35: [address] aspirin 81 2020-0 Yes 81mg Take 81 mg U nivers mg EC 8-31 by mouth. ity of tablet 10:35: [address] aspirin 81 2020-0 Yes 81mg Take 81 mg U nivers mg EC 8-31 by mouth. ity of tablet 10:35: [address] aspirin 81 2020-0 Yes 81mg Take 81 mg U nivers mg EC 8-31 by mouth. ity of tablet 10:35: [address] aspirin 81 2020-0 Yes 81mg Take 81 mg U nivers mg EC 8-31 by mouth. ity of tablet 10:35: [address] aspirin 81 2020-0 Yes 81mg Take 81 mg U nivers mg EC 8-31 by mouth. ity of tablet 10:35: [address] aspirin 81 2020-0 Yes 81mg Take 81 mg U nivers mg EC 8-31 by mouth. ity of tablet 10:35: [address] aspirin 81 2020-0 Yes 81mg Take 81 mg U nivers mg EC 8-31 by mouth. ity of tablet 10:35: [address] aspirin 81 2020-0 Yes 81mg Take 81 mg U nivers mg EC 8-31 by mouth. ity of tablet 10:35: [address] carvediloL 2020-0 Yes 1{tbl} Take 1 Uni vers 12.5 mg 1-30 tablet by ity of tablet 14:12: mouth. [address] gabapentin 2020-0 Yes 300mg Take 300 Un bma 300 mg 1-30 mg by ity of capsule 14:12: mouth. [address] risperiDONE 2020-0 Yes 3mg Take 3 mg U nivers 3 mg tablet 1-30 by mouth. ity of 14:12: [address] venlafaxine 2020-0 Yes 150mg Take 150 U nivers XR 150 mg 1-30 mg by ity of 24 hr 14:12: mouth. [address] carvediloL 2020-0 Yes 1{tbl} Take 1 Uni vers 12.5 mg 1-30 tablet by ity of tablet 14:12: mouth. [address] gabapentin 2020-0 Yes 300mg Take 300 Un bam 300 mg 1-30 mg by ity of capsule 14:12: mouth. [address] risperiDONE 2020-0 Yes 3mg Take 3 mg U nivers 3 mg tablet 1-30 by mouth. ity of 14:12: [address] venlafaxine 2020-0 Yes 150mg Take 150 U nivers XR 150 mg 1-30 mg by ity of 24 hr 14:12: mouth. [address] aspirin 81 2020-0 Yes 81mg Take 81 mg U nivers mg EC 1-30 by mouth. ity of tablet 14:12: [address] rosuvastati 2020-0 Yes 10mg Take 10 mg [facility] n 10 mg 1-30 by mouth. ity of tablet 14:12: [address] aspirin 81 2020-0 Yes 81mg Take 81 mg U nivers mg EC 1-30 by mouth. ity of tablet 14:12: [place] 45 Medical Branch rosuvastati 2020-0 Yes 10mg Take 10 mg [facility] n 10 mg 1-30 by mouth. ity of tablet 14:12: [place] 45 Medical Branch naproxen 2020-0 Yes TK 1 T PO Univ ers 500 mg 1-26 BID WF ity of tablet 00:00: [place] 00 Medical Branch traMADol 50 2020-0 Yes TK 1 T PO U nivers mg tablet -26 Q 8 H PRN ity o f 00:00: [place] [address] Medical Branch naproxen 2020-0 Yes TK 1 T PO Univ ers 500 mg -26 BID WF ity of tablet 00:00: [place] [address] Medical Branch traMADol 50 2020-0 Yes TK 1 T PO U nivers mg tablet -26 Q 8 H PRN ity o f 00:00: [place] [address] Medical Branch naproxen 2020-0 Yes TK 1 T PO Univ ers 500 mg 1-26 BID WF ity of tablet 00:00: [place] [address] Medical Branch naproxen 2020-0 Yes TK 1 T PO Univ ers 500 mg 1-26 BID WF ity of tablet 00:00: [place] [address] Medical Branch naproxen 2020-0 Yes TK 1 T PO Univ ers 500 mg -26 BID WF ity of tablet 00:00: [place] [address] Medical Branch naproxen 2020-0 Yes TK 1 T PO Univ ers 500 mg -26 BID WF ity of tablet 00:00: [place] [address] Medical Branch naproxen 2020-0 Yes TK 1 T PO Univ ers 500 mg -26 BID WF ity of tablet 00:00: [place] [address] Medical Branch naproxen 2020-0 Yes TK 1 T PO Univ ers 500 mg 1-26 BID WF ity of tablet 00:00: [place] [address] Medical Branch naproxen 2020-0 Yes TK 1 T PO Univ ers 500 mg 1-26 BID WF ity of tablet 00:00: [place] [address] Medical Branch naproxen 2020-0 Yes TK 1 T PO Univ ers 500 mg 1-26 BID WF ity of tablet 00:00: [place] [address] Medical Branch naproxen 2020-0 Yes TK 1 T PO Univ ers 500 mg 1-26 BID WF ity of tablet 00:00: [place] [address] Medical Branch naproxen 2020-0 Yes TK 1 T PO Univ ers 500 mg 1-26 BID WF ity of tablet 00:00: [place] 00 Medical Branch naproxen 2020-0 Yes TK 1 T PO Univ ers 500 mg 04-17 BID WF ity of tablet 00:00: [place] 00 Medical Branch naproxen 2020-0 Yes TK 1 T PO Univ ers 500 mg 04-17 BID WF ity of tablet 00:00: [place] 00 Medical Branch naproxen 2020-0 Yes TK 1 T PO Univ ers 500 mg 04-17 BID WF ity of tablet 00:00: [place] 00 Medical Branch naproxen 2020-0 Yes TK 1 T PO Univ ers 500 mg 04-17 BID WF ity of tablet 00:00: [place] 00 Medical Branch naproxen 2020-0 Yes TK 1 T PO Univ ers 500 mg 04-17 BID WF ity of tablet 00:00: [place] 00 Medical Branch naproxen 2019-0 Yes TK 1 T PO Univ ers 500 mg 04-17 BID WF ity of tablet 00:00: [place] 00 Medical Branch naproxen 2020-0 Yes TK 1 T PO Univ ers 500 mg 04-17 BID WF ity of tablet 00:00: [place] 00 Medical Branch naproxen 2020-0 2021- No TK 1 T PO Uni vers 500 mg 04-17 BID WF ity of tablet 00:00: 00:00 [place] 00 :00 Medical Branch traMADol 50 2020-0 2020- No TK 1 T PO [facility] mg tablet 04-17 Q 8 H PRN ity of 00:00: 00:00 [place] 00 :00 Medical Branch traMADol 50 2020-0 2020- No TK 1 T PO [facility] mg tablet 04-17 Q 8 H PRN ity of 00:00: 00:00 [place] 00 :00 Medical Branch gabapentin 2017-03 Yes [...] 0-02 by mouth ity of 03:17: daily. [place] [address] Medical Branch gabapentin 2017-03 Yes 300mg Take 300 Un bam 100 mg 0-02 mg by ity of capsule 03:17: mouth 4 [place] 15 (four) Medical times Branch daily. carvedilol 2017-03 Yes 12.5mg Take 12.5 Univers 12.5 mg 0-02 mg by ity of tablet 03:17: mouth 2 [place] [address] (two) Medical times Branch daily. venlafaxine 2017-03 [...] 0-02 by mouth ity of 03:17: daily. [address] gabapentin 2017-03 Yes 300mg Take 300 Un bam 100 mg 0-02 mg by ity of capsule 03:17: mouth 4 [place] 15 (four) Medical times Branch daily. carvedilol 2017-03 Yes 12.5mg Take 12.5 [facility] 12.5 mg 0-02 mg by ity of tablet 03:17: mouth 2 [place] [address] (two) Medical times Branch daily. venlafaxine 2017-03 [...] 0-02 by mouth ity of 03:17: daily. [address] citalopram citalopram No 1 Q1D citalopram [facility] 20 mg 20 mg 20 [...] bedtime. atorvastati atorvastati No 1 Q1D atorvastat [place] [...] da tablet tablet mg tablet [facility] cyclobenzap cyclobenzap No cyclobenza [place] rine 5 mg rine 5 mg charito 5 mg da tablet tablet tablet [facility] diclofenac diclofenac No diclofenac [place] 1 % topical 1 % topical 1 % d a gel gel topical [facility] gabapentin gabapentin No gabapentin [place] 600 mg 600 mg 600 mg da tablet tablet tablet [facility] ibuprofen ibuprofen No ibuprofen [place] 600 mg 600 mg 600 mg da tablet tablet tablet [facility] ibuprofen ibuprofen No ibuprofen [place] 800 mg 800 mg 800 mg da tablet tablet tablet [facility] ketorolac ketorolac No ketorolac [place] 0.5 % eye 0.5 % eye 0.5 % eye da drops drops drops [facility] naproxen naproxen No naproxen [place] 500 mg 500 mg 500 mg da tablet tablet tablet [facility] ondansetron ondansetron No ondansetro [place] 4 mg 4 mg n 4 mg da disintegrat disintegrat disintegra [facility] ing tablet ing tablet ting al tablet [facility] prednisolon prednisolon No prednisolo [place] e acetate 1 e acetate 1 ne acetate da % eye % eye 1 % eye [facility] drops,suspe drops,suspe drops,susp al nsion nsion ension [facility] prednisone prednisone No prednisone [place] 20 mg 20 mg 20 mg da tablet tablet tablet [facility] propranolol propranolol No propranolo [place] 10 mg 10 mg l 10 mg da tablet tablet tablet [facility] risperidone risperidone No risperidon [place] 1 mg tablet 1 mg tablet e 1 mg da tablet [facility] risperidone risperidone No risperidon [place] 4 mg tablet 4 mg tablet e 4 mg da tablet [facility] tramadol tramadol No [...] Immunizations Ordered Filled Immunization Date Status Comments Sour e Immunization Name Name SARS-COV-2 COVID-19 2020-08-06 Completed Unive rsity of MODERNA VACCINE 00:00:00 [facility] [place] [facility] SARS-COV-2 COVID-19 2020-08-06 Completed Unive rsity of MODERNA VACCINE 00:00:00 [facility] [place] [facility] SARS-COV-2 COVID-19 2020-08-06 Completed Unive rsity of MODERNA VACCINE 00:00:00 [facility] [place] [facility] SARS-COV-2 COVID-19 2020-08-06 Completed Unive rsity of MODERNA VACCINE 00:00:00 [facility] [place] [facility] SARS-COV-2 COVID-19 2020-08-06 Completed Unive rsity of MODERNA VACCINE 00:00:00 [facility] [place] [facility] SARS-COV-2 COVID-19 2020-08-06 Completed Unive rsity of MODERNA VACCINE 00:00:00 [facility] [place] [facility] SARS-COV-2 COVID-19 2020-08-06 Completed Unive rsity of MODERNA VACCINE 00:00:00 [facility] [place] [facility] SARS-COV-2 COVID-19 2020-08-06 Completed Unive rsity of MODERNA VACCINE 00:00:00 [facility] [place] [facility] SARS-COV-2 COVID-19 2020-08-06 Completed Unive rsity of MODERNA VACCINE 00:00:00 [facility] [place] [facility] SARS-COV-2 COVID-19 2020-08-06 Completed Unive rsity of [...] Unive rsity of MODERNA VACCINE 00:00:00 [place] [facility] ical [facility] SARS-COV-2 COVID-19 2020-08-06 Completed Unive rsity of MODERNA VACCINE 00:00:00 [place] [facility] SARS-COV-2 COVID-19 2020-08-06 Completed Unive rsity of MODERNA VACCINE 00:00:00 [place] [facility] SARS-COV-2 COVID-19 2020-08-06 Completed Unive rsity of MODERNA VACCINE 00:00:00 [place] [facility] SARS-COV-2 COVID-19 2020-08-06 Completed Unive rsity of MODERNA VACCINE 00:00:00 [place] [facility] SARS-COV-2 COVID-19 2020-08-06 Completed Unive [...] Unive rsity of MODERNA VACCINE 00:00:00 [place] [facility] SARS-COV-2 COVID-19 2020-07-09 Completed Unive [...] Completed Unive rsity of MODERNA VACCINE 00:00:00 [facility] SARS-COV-2 COVID-19 2020-07-09 Completed Unive rsity of MODERNA VACCINE 00:00:00 [facility] influenza, influenza, 2018-11-21 Completed [facility] injectable, injectable, 00:00:00 Practice quadrivalent quadrivalent Vital Signs Vital Name Observation Time Observation Value Comments Source Systolic blood 2021-03-21 18:04:00 124 mm[Hg] Univer sity of pressure [facility] Diastolic blood 2021-03-21 18:04:00 77 mm[Hg] Unive rsity of pressure [facility] Heart rate 2021-03-21 18:04:00 94 /min Universi ty of [facility] Body temperature 2021-03-21 18:04:00 39 Priya Univ ersity of [facility] Respiratory rate 2021-03-21 18:04:00 18 /min Univ ersity of [facility] Body weight 2021-03-21 18:04:00 71.668 kg Universi ty of [facility] BMI 2021-03-21 18:04:00 22.67 kg/m2 Universi ty of [facility] Oxygen saturation in 2021-03-21 18:04:00 99 /min University of Arterial blood by [facility] Pulse oximetry Branch Systolic blood 2021-02-28 18:18:00 127 mm[Hg] Univer sity of pressure [facility] Diastolic blood 2021-02-28 18:18:00 77 mm[Hg] Unive rsity of pressure [facility] Heart rate 2021-02-28 18:18:00 97 /min Universi ty [facility] [place] [facility] Body temperature 2021-02-28 18:18:00 37 Priya Univ ersity of [facility] Branch Respiratory rate 2021-02-28 18:18:00 18 /min Univ ersity of [facility] Body weight 2021-02-28 18:18:00 97.977 kg Universi ty of [place] [facility] BMI 2021-02-28 18:18:00 30.99 kg/m2 Universi ty of [facility] Oxygen saturation in 2021-02-28 18:18:00 99 /min University of Arterial blood by [facility] Pulse oximetry Branch Systolic blood 2021-01-18 18:29:00 106 mm[Hg] Univer sity of pressure [facility] Diastolic blood 2021-01-18 18:29:00 68 mm[Hg] Unive rsity of pressure [facility] Heart rate 2021-01-18 18:29:00 73 /min Universi ty of [place] [facility] Body temperature 2021-01-18 18:29:00 36.67 Priya Univ ersity of [place] [facility] Respiratory rate 2021-01-18 18:29:00 20 /min Univ ersity of [place] [facility] Body height 2021-01-18 18:29:00 177.8 cm Universi ty of [place] [facility] Body weight 2021-01-18 18:29:00 97.977 kg Universi ty of [place] [facility] BMI 2021-01-18 18:29:00 30.99 kg/m2 Universi ty of [facility] Oxygen saturation in 2021-01-18 18:29:00 98 /min University of Arterial blood by [place] [facility] Pulse oximetry Branch Systolic blood 2020-12-06 20:08:00 118 mm[Hg] Univer sity of pressure [facility] Diastolic blood 2020-12-06 20:08:00 76 mm[Hg] Unive rsity of pressure [facility] Heart rate 2020-12-06 20:08:00 75 /min Universi ty of [place] [facility] Respiratory rate 2020-12-06 20:08:00 22 /min Univ ersity of [facility] Body height 2020-12-06 20:08:00 177.8 cm Universi ty of [place] [facility] Body weight 2020-12-06 20:08:00 71.804 kg Universi ty of [place] [facility] BMI 2020-12-06 20:08:00 22.71 kg/m2 Universi ty of [place] [facility] Oxygen saturation in 2020-12-06 20:08:00 94 /min University of Arterial blood by [facility] Pulse oximetry Branch Systolic blood 2020-10-21 03:02:00 117 mm[Hg] Univer sity of pressure [facility] Diastolic blood 2020-10-21 03:02:00 87 mm[Hg] Unive rsity of pressure [facility] Heart rate 2020-10-21 03:02:00 81 /min Universi ty of [place] [facility] Body temperature 2020-10-21 03:02:00 36.83 Priya Univ ersity of [facility] Respiratory rate 2020-10-21 03:02:00 20 /min Univ ersity of [facility] Body weight 2020-10-21 03:02:00 72.576 kg [facility]i ty [facility] BMI 2020-10-21 03:02:00 22.96 kg/m2 Universi ty [facility] Oxygen saturation in 2020-10-21 03:02:00 98 /min University of Arterial blood by [facility] Pulse oximetry Branch Systolic blood 2020-10-09 14:16:00 127 mm[Hg] Univer sity of pressure [facility] Diastolic blood 2020-10-09 14:16:00 77 mm[Hg] Unive rsity of [facility] Medical Branch Heart rate 2020-10-09 14:16:00 90 /min Universi ty of [place] [facility] Body temperature 2020-10-09 14:16:00 36.5 Priya [facility] ersity of [facility] Respiratory rate 2020-10-09 14:16:00 18 /min Univ ersity of [facility] Body weight 2020-10-09 14:16:00 72.576 kg Universi ty of [place] [facility] BMI 2020-10-09 14:16:00 22.96 kg/m2 [facility]i ty [facility] [place] [facility] Oxygen saturation in 2020-10-09 14:16:00 97 /min University of Arterial blood by [facility] Pulse oximetry Branch Height 2020-07-05 00:00:00 70 [in_i] [facility] BMI (Body Mass 2020-07-05 00:00:00 22.2 kg/m2 [facility]) [facility] Body Weight 2020-07-05 00:00:00 155 [lb_av] [facility] Systolic blood 2020-05-13 17:37:00 126 mm[Hg] Univer sity of [facility] Medical Branch Diastolic blood 2020-05-13 17:37:00 76 mm[Hg] Unive rsity of [facility] Medical Branch Heart rate 2020-05-13 17:37:00 81 [...] 97 /min University of Arterial blood by [facility] Pulse oximetry Branch Systolic blood 2020-05-13 [...] 97 /min University of Arterial blood by [facility] Pulse oximetry Branch Systolic blood 2020-02-04 [...] 97 /min University of Arterial blood by [facility] Pulse oximetry Branch Systolic blood 2020-02-04 [...] 97 /min University of Arterial blood by [facility] Pulse oximetry Branch Systolic blood 2019-11-21 15:33:00 117 mm[Hg] Univer sity of pressure [facility] Diastolic blood 2019-11-21 15:33:00 74 mm[Hg] Unive rsity of pressure [facility] Heart rate 2019-11-21 15:33:00 57 /min Universi ty of [place] [facility] Respiratory rate 2019-11-21 15:33:00 19 /min Univ ersity of [facility] Body height 2019-11-21 15:33:00 177.8 cm Universi ty [facility] [place] [facility] Body weight 2019-11-21 15:33:00 68.085 kg [facility]i ty [facility] [place] [facility] BMI 2019-11-21 15:33:00 21.54 kg/m2 Universi ty [facility] [place] [facility] Oxygen saturation in 2019-11-21 15:33:00 96 /min University of Arterial blood by [facility] Pulse oximetry Branch Systolic blood 2019-11-21 15:33:00 117 mm[Hg] Univer sity of pressure [facility] Diastolic blood 2019-11-21 15:33:00 74 mm[Hg] Unive rsity of pressure [facility] Heart rate 2019-11-21 15:33:00 57 /min Universi ty of [facility] Respiratory rate 2019-11-21 15:33:00 19 /min Univ ersity of [facility] Body height 2019-11-21 15:33:00 177.8 cm Universi ty of [facility] Body weight 2019-11-21 15:33:00 68.085 kg Universi ty of [facility] BMI 2019-11-21 15:33:00 21.54 kg/m2 Universi ty of [facility] Oxygen saturation in 2019-11-21 15:33:00 96 /min [facility] Arterial blood by [facility] Pulse oximetry Branch Height 2019-07-05 00:00:00 70 [in_i] [facility] Practice BMI (Body Mass 2019-07-05 00:00:00 21.5 kg/m2 [facility] Family Index) Practice Body Weight 2019-07-05 00:00:00 150 [lb_av] [facility] Systolic blood 2019-04-21 14:11:00 133 mm[Hg] Univer sity of pressure [facility] Diastolic blood 2019-04-21 14:11:00 83 mm[Hg] Unive rsity of pressure [facility] Respiratory rate 2019-04-21 14:11:00 18 /min [facility] Body height 2019-04-21 14:11:00 180.3 cm Universi ty of [facility] Body weight 2019-04-21 14:11:00 65.772 kg Universi ty of [facility] BMI 2019-04-21 14:11:00 20.22 kg/m2 Universi ty [facility] Procedures Procedure Date / Time Performing Clinician Source Performed CONSENT/REFUSAL FOR 2021-03-21 17:58:58 Doctor Unassigned, [facility] [place] [facility] ASSIGNMENT OF BENEFITS 2021-02-28 19:15:57 Doctor Unassigned, Un iversity of [place] [facility] CONSENT/REFUSAL FOR 2021-02-28 18:10:16 Doctor Mukundigned, [facility] [place] [facility] MR FOOT LEFT WO CONTRAST 2021-02-25 15:23:46 Requisition, Paper [facility] CONSENT/REFUSAL FOR 2021-02-25 14:13:09 Doctor Unassigned, Unive rsity of [place] [facility] PULMONARY FUNCTION TEST 2021-02-19 14:30:22 Luis Daniel Johnson [facility] (RESULTS) Medical Branch MEDICATION CORRESPONDENCE 2021-02-05 06:01:00 Doctor Nata, [facility] MEDICATION CORRESPONDENCE 2021-01-26 05:01:00 Doctor Unassigned, [facility] MEDICATION CORRESPONDENCE 2021-01-24 05:01:00 Doctor Unasspiotr, [facility] MEDICATION CORRESPONDENCE 2021-01-22 05:01:00 Doctor Unasspiotr, [facility] MEDICATION CORRESPONDENCE 2021-01-20 05:01:00 Doctor Peace [facility] XR FOOT 3+ VW LEFT 2021-01-18 20:16:59 Alyssia Moss [facility] [place] XR ANKLE 3+ VW LEFT 2021-01-18 19:48:37 Alyssia Moss [facility] NOTICE OF PRIVACY 2021-01-18 18:11:37 Doctor Nata [facility] CONSENT/REFUSAL FOR 2021-01-18 18:11:21 Doctor Peace [facility] DIAGNOSIS AND TREATMENT [facility] CONSENT/REFUSAL FOR 2020-10-21 02:49:47 Doctor Peace [facility] DIAGNOSIS AND TREATMENT [facility] CONSENT/REFUSAL FOR 2020-10-09 14:09:46 Doctor Peace [facility] DIAGNOSIS AND TREATMENT [facility] INSURANCE CORRESPONDENCE 2020-09-28 05:01:00 Doctor Nata, [facility] MEDICATION CORRESPONDENCE 2020-05-23 06:01:00 Doctor Nata, [facility] XR WRIST <3 VW RIGHT 2020-05-13 18:03:58 Alyssia Moss [facility] [place] NOTICE OF PRIVACY 2020-05-13 17:29:28 Doctor Nata, [facility] CONSENT/REFUSAL FOR 2020-05-13 17:29:07 Doctor Peace [facility] DIAGNOSIS AND TREATMENT [facility] REFERRAL- 2020-02-20 06:01:00 Doctor Unassigned, [facility] [place] REQUEST/RESPONSE [facility] 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 - ADC 2019-11-18 05:01:00 Doctor Unassigned, [facility] ASSIGNMENT OF BENEFITS 2019-04-21 14:06:48 Doctor Unassigned, [facility] [place] [facility] Appendectomy [facility] Extraction of Cataract [facility] Appendectomy [facility] Hernia Repair W/mesh [facility] Plan of Care Planned Activity Planned Date Details Comments Source Instructions [facility] Encounters Start End Encounter Admission Attending Care Care Encounter Source Date/Time Date/Time Type Type Clinicians Facility Department ID 2021-01-21 Emergency [facility] [id number] Univers 12:14:06 ity of [facility] 2021-01-21 Emergency [facility] [id number] Univers 09:20:59 ity of [facility] 2021-01-20 Emergency [facility] [id number] Univers 00:18:41 ity of [facility] 2021-01-19 Emergency [facility] [id number] Univers 05:34:10 ity of [facility] 2021-03-29 2021-03-29 Outpatient R LUIS DANIEL JOHNSON [facility] [id number] Univers 14:00:00 14:00:00 LUIS DANIEL JOHNSON [id number] i ty of [facility] 2021-03-29 2021-03-29 Outpatient R LUIS DANIEL JOHNSON [facility] [id number] Univers 14:00:00 14:00:00 LUIS DANIEL JOHNSON i ty of [facility] 2021-03-21 2021-03-21 Emergency X [facility] ERT [id number] Univers 12:03:00 13:32:00 DANA ity of [facility] 2021-03-21 2021-03-21 Emergency [facility] [id number] Univers 12:03:00 13:32:00 Dana MORRISON [id number] ity [facility] [id number] [facility] [id number] [place] [address] [place] 2021-02-28 2021-02-28 Emergency X GAFFNEY, [facility] ERT [id number] Univers 12:27:00 13:58:00 RINA ity [facility] 2021-02-28 2021-02-28 Emergency Gaffney, [facility] [id number] Univers 12:27:00 13:58:00 Rina MORRISON [id number] i ty [facility] [id number] [facility] [id number] [facility] 084 [place] 2021-02-25 2021-02-25 Outpatient R RADIOLOGY [facility] [id number] Univers 08:13:07 23:59:00 ity [facility] 2021-02-25 2021-02-25 Hospital Radiology [facility] 1.2.840.114 [id number] Univers 08:13:07 23:59:00 Encounter PRINCE [id number] ity [facility] [id number] [facility] [id number] [facility] [address] [place] 2021-02-25 2021-02-25 Outpatient R [facility] [id number] Univers 09:00:00 09:00:00 [id number] [facility] 2021-02-19 2021-02-19 Congressional Assistant Therapist, Yesy Respiratory [facility] 1.2.840.114 [id number] Univers 08:23:40 09:53:40 Visit Dave Matta 350.1.13. 10 ity [facility] [id number] [facility] [id number] [facility] [address] [place] 2021-02-19 2021-02-19 Outpatient R [facility] [id number] Univers 08:00:00 08:00:00 [id number] [facility] 2021-02-19 2021-02-19 Outpatient R SIGRID [facility] [id number] Univers 08:00:00 08:00:00 DAVE kaycee [facility] 2021-02-19 2021-02-19 Orders Johnson, ESPINOZAIT [id number] Univers 00:00:00 00:00:00 Only Antonietan [facility] [id number] i ty of [id number] [id number] [place] [id number] Branch 2021-02-08 2021-02-08 Outpatient R LUIS DANIEL JOHNSON [facility] [id number] Univers 11:00:00 11:00:00 LUIS DANIEL JOHNSON [id number] i ty of [facility] 2021-02-05 2021-02-05 Orders Doctor ROSAMARIA Rodriguez2.840.114 [id number] Univers 00:00:00 00:00:00 Only Unassigned, LAURYN [id number] ity of [facility] [id number] Kishore as [id number] [address] 2021-01-26 2021-01-26 Orders Doctor ROSAMARIA Rodriguez2.840.114 [id number] Univers 00:00:00 00:00:00 Only Unassigned, LAURYN [id number] ity of [facility] 4.2.7.2.686 Kishore as [id number] [address] 2021-01-24 2021-01-24 Orders Doctor BLANK 1Renate2.840.114 [id number] Univers 00:00:00 00:00:00 Only Unassigned, LAURYN [id number] ity of [facility] 4.2.7.2.686 Kishore as [id number] [address] 2021-01-22 2021-01-22 Orders Doctor BLANK 1.2.840.114 [id number] Univers 00:00:00 00:00:00 Only Unassigned, LAURYN [id number] ity of [facility] 4.2.7.2.686 Kishore as [id number] [address] 2021-01-20 2021-01-20 Orders Doctor ROSAMARIA Rodriguez2.840.114 [id number] Univers 00:00:00 00:00:00 Only Unassigned, LAURYN [id number] ity of [facility] 4.2.7.2.686 Kishore as [id number] [address] 2021-01-18 2021-01-18 Emergency X MOSS, [facility] ERT [id number] Univers 13:34:00 16:30:00 [facility] 2021-01-18 2021-01-18 Emergency MossRUST [id number] Univers 13:34:00 16:30:00 Alyssia MORRISON [id number] i ty [place] [facility] [id number] [address] 2020-12-06 2020-12-06 Office AlexRUST 1.2.840.114 [id number] Univers 14:33:18 15:23:38 Visit Luis Daniel Morrison [id number] [place].2.7.2.[place] Profess[place] [id number] [address] 2020-12-06 2020-12-06 Outpatient R LUIS DANIEL JOHNSON [facility] [id number] Univers 15:00:00 15:00:00 LUIS DANIEL JOHNSON [id number] i ty of [facility] 2020-12-06 2020-12-06 Outpatient R LUIS DANIEL JOHNSON [facility] [id number] Univers 14:40:00 14:40:00 LUIS DANIEL JOHNSON i ty of [facility] 2020-10-29 2020-10-29 Outpatient R [facility] [id number] Univers 10:00:00 10:00:00 [id number] ity [facility] 2020-10-24 2020-10-24 Office ONOFRE Ruth [id number] Univers 13:31:57 14:01:33 Visit Sukhjinder Nance [facility] [id number] ity of [facility] 4.2.7.2.[place] [id number] [facility] [address] [place] 2020-10-24 2020-10-24 [facility]patient [facility] [id number] Univers 14:00:00 14:00:00 SUKHJINDER [id number] ity [facility] 2020-10-24 2020-10-24 [facility] [id number] Univers 14:00:00 14:00:00 SUKHJINDER ity of [facility] 2020-10-22 2020-10-22 Telephone Manoj [facility] [id number] Univers 00:00:00 00:00:00 Sukhjinder Nanec M[facility] [id number] ity of [place].2.[place] [id number] [address] [facility] 2020-10-20 2020-10-20 Emergency SwiftRUST [id number] Univers 22:06:00 22:44:00 Susy S [place] 350.1.13.10 i ty [place] 4.2.7.2.686 [place] [id number] [facility] 084 Branch 2020-10-20 2020-10-20 [facility] [id number] Univers 00:00:00 00:00:00 Management Luis Enrique Y HEALTH [id number] ity of [place]2.[place].2.[place] [id number] [place] [address] Branch 2020-10-18 2020-10-18 Telephone Manoj ESPINOZA 1.2.840.114 [id number] Univers 00:00:00 00:00:00 Sukhjinder R Y HEALTH [id number] ity of [place] [id number] [address] 2020-10-17 2020-10-17 Office ONOFRE Ruth [id number] Univers 14:08:14 14:58:43 Visit Sukhjinder R Y HEALTH [id number] ity of [place] [id number] [address] 2020-10-17 2020-10-17 Outpatient Goyo RUTH [facility] [id number] Univers 14:30:00 14:30:00 SUKHJINDER [id number] ity of [facility] 2020-10-17 2020-10-17 Outpatient Goyo RUTH [facility] [id number] Univers 14:30:00 14:30:00 SUKHJINDER ity [facility] 2020-10-09 2020-10-09 Emergency AjayRUST [id number] Univers 09:17:00 10:43:00 Alyssiajae Morrison [id number] i ty of [place] 4.2.7.2.686 [facility] [id number] [facility] 084 Branch 2020-09-28 2020-09-28 Orders Doctor ROSAMARIA 1.2.840.114 [id number] Univers 00:00:00 00:00:00 Only Unassigned, LAURYN [id number] ity of [facility] 4.2.7.2.686 [facility] [id number] [facility] 009 Branch 2020-08-06 2020-08-06 Outpatient Goyo HUBBARD [facility] [id number] Univers 08:30:00 08:30:00 DONNA [facility] 2020-07-25 2020-07-25 Outpatient [facility]202 [facility] 05:42:00 05:42:00 _A_AH [id number] Family Practic e 2020-07-09 2020-07-09 [address] [facility] 09:06:00 09:06:00 _A_AH [id number] Family Practic e 2020-07-09 2020-07-09 Outpatient [facility] [id number] Univers 08:30:00 08:30:00 [facility] 2020-07-05 2020-07-05 Yaa [facility] [place] - [id number] V illage 00:00:00 00:00:00 [facility] Fam jonathon coleman, 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 2020-06-12 2020-06-12 Patient Dirk [facility] 1.2.840.114 [id number] Univers 00:00:00 00:00:00 Outreach Eulalio JEFFERS 350.1.13.10 i ty of [facility] [place].2.7.2.[place] [id number] Hi dical [address] [place] 2020-06-12 2020-06-12 Patient Dirk [facility] 1.2.840.114 [id number] 00:00:00 00:00:00 Outreach Eulalio [facility] [id number] [facility] 4.2.7.2.686 PAVILLION [id number] 2020-05-23 2020-05-23 Orders Doctor ROSAMARIA 1.2.840.114 [id number] Univers 00:00:00 00:00:00 Only Unassigned, LAURYN 350.1.13.10 ity of [facility] 4.2.7.2.686 Kishore as [id number] [address] 2020-05-23 2020-05-23 Orders Doctor BLANK 1.2.840.114 [id number] 00:00:00 00:00:00 Only Unassigned, LAURYN 350.1.13.10 [facility] 4.2.7.2.686 [id number] 009 2020-05-13 2020-05-13 Emergency MossRUST [id number] [facility] 11:38:00 12:32:00 Alyssia Morrison 350.1.13.10 i ty [place].2.[place] [id number] [facility] [address] [place] 2020-05-13 2020-05-13 Emergency MossRUST [id number] 11:38:00 12:32:00 Alyssia Morrison 350.1.13.10 [place] 4.2.7.2.686 [place] [id number] 2020-05-13 2020-05-13 Orders Doctor BLANK 1.2.840.114 [id number] Univers 00:00:00 00:00:00 Only Unassigned, LAURYN 350.1.13.10 ity of [facility] 4.2.7.2.686 Kishore as [id number] [address] 2020-05-13 2020-05-13 Orders Doctor ROSAMARIA 1.2.840.114 [id number] 00:00:00 00:00:00 Only Unassigned, LAURYN 350.1.13.10 [facility] 4.2.7.2.686 [id number] 009 2020-02-20 2020-02-20 Orders Doctor ROSAMARIA 1.2.840.114 [id number] Univers 00:00:00 00:00:00 Only Unassigned, LAURYN 350.1.13.10 ity of [facility] 4.2.7.2.686 Kishore as [id number] [facility] 009 Branch 2020-02-20 2020-02-20 Orders Doctor ROSAMARIA 1.2.840.114 [id number] 00:00:00 00:00:00 Only Unassigned, LAURYN 350.1.13.10 [place] [facility] 4.2.7.2.686 [id number] [id number] 2020-02-04 2020-02-04 Emergency [facility] [id number] [facility] 12:43:00 13:48:00 Susy [place] 350.1.13.10 i ty of [place] 4.2.7.2.686 [facility] [id number] [address] 2020-02-04 2020-02-04 Emergency Haskell, [facility] [id number] 12:43:00 13:48:00 Susy [place] 350.1.13.10 [place] 4.2.7.2.686 [place] [id number] [facility] 2019-12-13 2019-12-13 Outpatient AMBREEN_FAR [facility] [address] [place] 05:32:00 05:32:00 HANA 0922 [facility] 2019-12-06 2019-12-06 Outpatient AMBREEN_FAR [facility] 70 [place] 05:36:00 05:36:00 HANA 0915 [facility] 2019-12-06 2019-12-06 [facility] [place] [facility] [id number] [place] 00:00:00 00:00:00 Nahun Streeter MD: [address] [facility] [address], [place], [place] [facility] [address] [place] [facility] billy , Ph. h ([phone]) Program 2019-11-22 2019-11-22 Telephone [facility] [id number] Univers 00:00:00 00:00:00 Shefali Morrison [id number] [place] [phone] [address] 2019-11-22 2019-11-22 [facility] [id number] 00:00:00 00:00:00 Audicristelaalvin Morrison [id number] [place] 4.2.7.2.686 Professio [phone] [address] 2019-11-21 2019-11-21 Office [facility] [id number] Univers 10:05:29 10:53:34 Visit Shefali Morrison [id number] [place] [phone] [address] 2019-11-21 2019-11-21 Office [facility] 1.2.840.114 [id number] 10:05:29 10:53:34 Visit Shefali Morrison [id number] [place] 4.2.7.2.686 Professio [phone] [address] 2019-11-21 2019-11-21 Outpatient R [facility] [id number] Univers 10:40:00 10:40:00 SHEFALI [id number] ana o f [facility] 2019-11-21 2019-11-21 Outpatient R [facility] [id number] Univers 10:40:00 10:40:00 SHEFALI mcgeey o f [facility] 2019-11-18 2019-11-18 Orders Doctor BLANK [id number] Univers 00:00:00 00:00:00 Only Unassigned, LAURYN [id number] [facility] 4.2.7.2.686 Kishore as [phone] [facility] [address] [place] 2019-11-18 2019-11-18 Orders Doctor ROSAMARIA 1.2.840.114 [id number] 00:00:00 00:00:00 Only Unassigned, LAURYN 350.1.13.10 [place] [facility] 4.2.7.2.686 [phone] 009 2019-08-12 2019-08-12 Outpatient Tonie-Mbayo VFP VFP [id number] [facility] 11:11:00 11:11:00 _A_AH 84875 Family Practic e 2019-07-20 2019-07-20 Outpatient Tonie-Mbayo VFP VFP [address] 09:28:00 09:28:00 _A_AH 79818 Family Practic e 2019-07-05 2019-07-05 Outpatient Tonie-Mbayo VFP VFP [address] [place] [address] 09:42:00 09:42:00 _A_AH 10691 Family Practic e 2019-07-05 2019-07-05 Yaa VFP [place] - [id number] V illage 00:00:00 00:00:00 TonieMbay [facility] Fam jonathon coleman 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 2019-06-22 2019-06-22 Outpatient Tonie-Mbayo VFP VFP [address] [place] [address] 10:56:00 10:56:00 _A_AH 36951 Family Practic e 2019-04-21 2019-04-21 Office Laura PATAMY 1.2.840.114 [id number] Univers 08:09:30 08:24:30 Visit [facility] [id number] it y of Surgical 4.2.7.2.686 Kishore as Specialti [phone] [facility] [address] [facility] 2019-04-21 2019-04-21 Orders Doctor ROSAMARIA 1.2.840.114 [id number] Univers 00:00:00 00:00:00 Only Unassigned, LAURYN 350.1.13.10 [facility] [place] [facility] 4.2.7.2.686 Kishore as [phone] [place] [address] [address] 2019-02-25 2019-03-22 Outpatient 3 DENIS DUMONT [phone]- [employer] 14:12:00 15:28:00 RUFINO [id number] Hospi catie smith ([facility]) Results Test Description Test Time Test Comments Results Result Comments Source PULMONARY FUNCTION TEST (RESULTS) 2021-02-19 14:30:22 Test Item Value Reference Range Interpretation Comme nts FVC Actual (test code = 3994) 5.36 L FEV1 Actual (test code = 3993) 3.30 L FEV1/FVC Actual (test code = 3995) 62 % [facility] VW [id number] 18:08:26 Posttraumatic soft tissue swelling with no [...] on thelateral view. [facility], Radiant Results Inft - 05/13/2020 12:09 PM CSTEXAM:XR WRIST <3 [...] withminimal dorsal ulnar subluxation with ulnar minus variance.[facility] [id number] 11:05:00 Test Item Value Reference Range Interpretation [...] 14.6 G/DL 12.0-18.0 Notifi ed Nurse/MD [facility] results outside of Reference Range s ISTANGAP (test code = 12 MMOL/L Notifi ed Nurse[facility]) results outside of Reference Range s BMP, BASIC METABOLIC [id number] 15:07:00 Test Item Value Reference Range Interpretation [...] glucose = GLUCOSE) normal <100 MG/ DL- [employer] recommendation* * CALCIUM (test code 9.4 MG/DL 8.4-10.2 = CABLOOD) GFR (test code = 95 A GFR of >9 0 GFR) mL/min/1.73m2 mL/min/1.73m2 is considered norm al. [id number] 15:07:00 Test Item Value Reference Range Interpretation Comments MG (test code = MG) 2.4 mg/dL 1.6-2.3 H PROTHROMBIN TIME WITH [id number] 14:02:00 Test Item Value Reference Range Interpretation Comments PROTHROMBIN TIME 13.7 SECONDS 12.0-14.6 INR Usual R randal = 2 (test code = PT) to 3 for pr evention of deep vein thrombosis (DVT ) INR (test code = INR) 1.1 [id number] 13:45:00 Test Item Value Reference Range Interpretation [...] K/UL 1.2-7.2 = NEUT) CHEST XR 2 [id number] 12:25:[address] [id number] IMAGING REPORTPatient Name: Yamil TABARES of Service: [id number]: 48 Sex: M Order #: [id number] Room: [facility]: [address] [place] [address] X-Ray Number: [id number] Record Number: [id number] Hospital Number: [id number] Physician: NELIDA WAITE -Ordering Physician: NELIDA WAITECHEST.08/24/2018 [...] 12:23:24PET, CARDIAC PERFUSION MULTIPLE STUDIES, REST AND [id number] 15:30:00Reason for exam:- >chest pain, multiple risk factors for CADFINAL REPORT PROCEDURE: Rest/Stress MYOCARDIAL PERFUSION PET with regadenoson\\XA9\\ CPT CODE: 05442 INDICATION: Chest pain, multiple risk factors for [...] Normal extracardiac tracer distribution. 6. No previous [facility] study for comparison. NONINVASIVE RISK STRATIFICATION: The above findings are considered low risk (<1% annual mortality rate) based on the following criterion:- Normal or small myocardial perfusion defectat rest or with stress(JACC. 2012;59(9):857-81.) Signed: Bekah Cota MDReport Verified Date/Time:11/27/2017 15:30:18 Reading Location: [address] Reading Room HEMOGLOBIN [id number] 09:48:00 Test Item Value Reference Range Interpretation Comments HEMOGLOBIN A1C (BEAKER) (test code = 4.9 % 4.3-6.1 368) BASIC METABOLIC [id number] 06:47:00 Test Item Value Reference Range Interpretation [...] DATA TO CALCULA TE ESTIMATED GFR. TROPONIN [id number] 06:44:00 Test Item Value Reference Range Interpretation [...] failure, acidosis, acute neurological disease, and persistent tachyarrhythmia.[id number] 06:43:00 Test Item Value Reference Range Interpretation Comments MAGNESIUM (BEAKER) (test code = 2.7 mg/dL 1.6-2.6 H 627) CBC W/PLT COUNT & AUTO [id number] 06:09:00 Test Item Value Reference Range Interpretation [...] PERCENT (BEAKER) (test code = 2801) TROPONIN [id number] 01:49:00 Test Item Value Reference Range Interpretation [...] acute neurological disease, and persistent tachyarrhythmia.BASIC METABOLIC [id number] 01:49:00 Test Item Value Reference Range Interpretation [...] m DATA TO CALCULA TE ESTIMATED GFR. [id number] 01:42:00 Test Item Value Reference Range Interpretation Comments MAGNESIUM (BEAKER) (test code = 2.2 mg/dL 1.6-2.6 627) LIPID [id number] 01:42:00 Test Item Value Reference Range Interpretation [...] 130-159 High 160-189 Very High >=190HEPATIC FUNCTION [id number] 01:42:00 Test Item Value Reference Range Interpretation [...] 6-55 347) CBC W/PLT COUNT & AUTO [id number] 00:59:00 Test Item Value Reference Range Interpretation [...]
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
[2021-04-13 21:22] VITALS: BP 134/90; TEMP 98.6; O2SAT 100
== END 2021-04-13 20:00 | disposition left against medical advice (07) ==
LOC: ER 19:14
DX: Z53.21 Procedure and treatment not carried out due to patient leaving prior to being seen by health care provider (principal)
CPT/HCPCS: 99281

== ENCOUNTER 2021-05-06 17:50 | Emergency (ER) | payer OTHER ==
--- OUTSIDE RECORDS SUMMARY | 2021-05-06 17:56 | XMS REPORT | Continuity of Care Document ---
:1970 Author Organization [facility] t Address [address] [place] [address] Care Team Providers Name Role Phone MAGDALENA VIDALES Primary Care Physician Unavailable ALEX Attending Clinician Unavailable ALEX Attending Clinician Unavailable Julissa ARCINIEGA Attending Clinician Unavailable Pamella KO G Attending Clinician JULIO C Attending Clinician [...] Expiration Date Radha payne [place] [id number] 2019 CLASSIC/VALUE 00:00:00 [place]ID [place] [id number] 2019 00:00:00 [facility] [id number] [place] (MEDICARE 00:00:00 REPLACEMENT/ADVANTA GE - HMO) WELLCARE [id number] 2019 HEALTHPLANS 00:00:00 (MEDICARE REPLACEMENT [place]) [place] [facility] - [id number] [facility] 2 M [id number] 2018 00:00:00 Advance Directives Directive Decision Effective Termination Comments Source Date Date Healthcare Agents on N/A [facility] Agent Medical RelationshipCommunicationH[facility] [phone] (Mobile) [email or web address] Problems Condition Condition Condition Status Onset Resolution [...] da right eye 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 [facility] Hyperchole Hyperchole Problem Active 2019-0 V [facility] sterolemia sterolemia 4-15 Fa johan 00:00: Practic 00 e Chronic Chronic Problem Active 2020-0 [place] back pain Back Pain 4-15 Fami ly 00:00: Practic 00 e Anxiety Anxiety Problem Active 2020-0 [place] 4-14 Family 00:00: Practic 00 e 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 Unknown if ever smoked [facility] Medications Ordered Filled Start Stop Current Ordering Indication Dosage Frequency Signature Comments Components Source Medication Medication Date Date Medication? Clinician (SIG) Name Name predniSONE 2020-03- Yes [id number] 40mg Take 2 [facility] 20 mg 05-02 9100 tablets by ity of tablet 00:00: 05:59 mouth [place] 00 :00 daily for Medical 5 days. Branch acetaminoph 2020-03- No 1{tbl} 1 tablet, Univers en-codeine 05-01 Oral, ity of (TYLENOL 20:00: 19:20 ONCE, 1 [place] #3) 300-30 00 :00 dose, On Medic al mg tablet 1 [facility] tablet 02/28/21 at 1400, REINA ketorolac 2020-03- [...] :00 1 dose, On Med ical injection [facility] Branch 10 mg 02/28/21 at 1400, STAT ibuprofen 2020-03 Yes [id number] 800mg Take 1 Univers 800 mg 2- 9100 tablet by ity of tablet 00:00: mouth [place] 00 every 8 Medical (eight) Branch hours as needed for Pain (scale 4-6). ibuprofen 2020-03 Yes [id number] 800mg Take 1 Univers 800 mg 2- [...] 01/18/21 at 1615, REINA ibuprofen 2020-03 Yes [id number] 600mg Take 1 [facility] 600 mg 0-29 00137 tablet by ity of tablet 00:00: mouth [place] 00 every 6 Medical (six) Branch hours as needed for Pain (scale 4-6). ibuprofen 2020-03 Yes [id number] 600mg Take 1 [facility] 600 mg 0-29 [id number] tablet by ity of tablet 00:00: mouth [place] 00 every 6 Medical (six) Branch hours as needed for Pain (scale 4-6). ibuprofen 2020-03 Yes [id number] 600mg Take 1 [facility] 600 mg 0-29 18250 tablet by ity of tablet 00:00: mouth [place] 00 every 6 Medical (six) Branch hours as needed for Pain (scale 4-6). ibuprofen 2020-03 Yes [id number] 600mg Take 1 [facility] 600 mg 0-29 [id number] tablet by ity of tablet 00:00: mouth [place] 00 every 6 Medical (six) Branch hours as needed for Pain (scale 4-6). ibuprofen 2020-03 Yes [id number] 600mg Take 1 [facility] 600 mg 0-29 [id number] tablet by ity of tablet 00:00: mouth [place] 00 every 6 Medical (six) Branch hours as needed for Pain (scale 4-6). ibuprofen 2020-03 Yes [id number] 600mg Take 1 [facility] 600 mg 0-29 96044 tablet by ity of tablet 00:00: mouth [place] 00 every 6 Medical (six) Branch hours as needed for Pain (scale 4-6). ibuprofen 2020-03 Yes [id number] 600mg Take 1 [facility] 600 mg 0-29 43510 tablet by ity of tablet 00:00: mouth [place] 00 every 6 Medical (six) Branch hours as needed for Pain (scale 4-6). ibuprofen 2020-03 Yes [id number] 600mg Take 1 [facility] 600 mg 0-29 41710 tablet by ity of tablet 00:00: mouth [place] 00 every 6 Medical (six) Branch hours as needed for Pain (scale 4-6). ibuprofen 2020-03 Yes [id number] 600mg Take 1 [facility] 600 mg 0-29 [id number] tablet by ity of tablet 00:00: mouth [place] 00 every 6 Medical (six) Branch hours as needed for Pain (scale 4-6). ibuprofen 2020-03 Yes [id number] 600mg Take 1 [facility] 600 mg 0-29 [id number] tablet by ity of tablet 00:00: mouth [place] 00 every 6 Medical (six) Branch hours as needed for Pain (scale 4-6). ibuprofen 2020-03 Yes [id number] 600mg Take 1 [facility] 600 mg 0-29 [id number] tablet by ity of tablet 00:00: mouth [place] 00 every 6 Medical (six) Branch hours as needed for Pain (scale 4-6). HYDROcodone 2020-03 No [id number] 1{tbl} Take 1 U nivers -acetaminop [...] by mouth ity of tablet 15:10: daily. [place] [address] Medical Branch citalopram Yes 40mg Take 40 mg U nivers 40 mg 9-16 by mouth ity of tablet 15:10: daily. [place] [address] Medical Branch citalopram Yes 40mg Take 40 mg U nivers 40 mg 9-16 by mouth ity of tablet 15:10: daily. [place] [address] Medical Branch citalopram 2021-0 Yes 40mg Take 40 mg U nivers 40 mg 9-16 by mouth ity of tablet 15:10: daily. [address] Branch citalopram 0 Yes 40mg Take 40 mg U nivers 40 mg 9-16 by mouth ity of tablet 15:10: daily. [address] Branch citalopram 0 Yes 40mg Take 40 mg U nivers 40 mg 9-16 by mouth ity of tablet 15:10: daily. [address] Branch citalopram 0 Yes 40mg Take 40 mg U nivers 40 mg 9-16 by mouth ity of tablet 15:10: daily. [address] Branch citalopram 0 Yes 40mg Take 40 mg U nivers 40 mg 9-16 by mouth ity of tablet 15:10: daily. [address] Branch citalopram 0 Yes 40mg Take 40 mg U nivers 40 mg 9-16 by mouth ity of tablet 15:10: daily. [address] Branch citalopram 0 Yes 40mg Take 40 mg U nivers 40 mg 9-16 by mouth ity of tablet 15:10: daily. [address] Branch citalopram 0 Yes 40mg Take 40 mg U nivers 40 mg 9-16 by mouth ity of tablet 15:10: daily. [address] Branch citalopram 0 Yes 40mg Take 40 mg U nivers 40 mg 9-16 by mouth ity of tablet 15:10: daily. [address] citalopram 0 Yes 40mg Take 40 mg U nivers 40 mg 9-16 by mouth ity of tablet 15:10: daily. [address] Branch citalopram 0 Yes 40mg Take 40 mg U nivers 40 mg 9-16 by mouth ity of tablet 15:10: daily. [address] Branch citalopram 0 Yes 40mg Take 40 mg U nivers 40 mg 9-16 by mouth ity of tablet 15:10: daily. [address] risperiDONE 2020-0 2020- No 4mg Take [...] times Medical daily. Branch doxycycline 2020- No [id number] 100mg Take 1 Univers monohydrate 7- 08-11 capsule by i ty of 100 mg 00:00: 04:59 mouth 2 [place] capsule 00 :00 (two) Medical times Branch daily for 10 days. doxycycline 2020- No [id number] 100mg Take 1 Univers monohydrate 7-31 08-11 capsule by i ty of 100 mg 00:00: 04:59 mouth 2 [place] capsule 00 :00 (two) Medical times Branch daily for 10 days. doxycycline 2020- No [id number] 100mg Take 1 Univers monohydrate 7-31 08-11 capsule by i ty of 100 mg 00:00: 04:59 mouth 2 [place] capsule 00 :00 (two) Medical times Branch daily for 10 days. doxycycline 2020- No [id number] 100mg Take 1 Univers monohydrate 7-31 08-11 capsule by i ty of 100 mg 00:00: 04:59 mouth 2 [place] capsule 00 :00 (two) Medical times Branch daily for 10 days. doxycycline 2020- No [id number] 100mg Take 1 Univers monohydrate 7-31 08-11 capsule by i ty of 100 mg 00:00: 04:59 mouth 2 [place] capsule 00 :00 (two) Medical times Branch daily for 10 days. doxycycline 2020- No [id number] 100mg Take 1 Univers monohydrate 7-31 08-11 capsule by i ty of 100 mg 00:00: 04:59 mouth 2 [place] capsule 00 :00 (two) Medical times Branch daily for 10 days. triamcinolo 2020- No [id number] Apply to [place] [address] 11-17 area(s) 2 ity of acetonide 00:00: 04:59 (two) [place] 0.1 % cream 00 :00 times Medical daily for Branch 30 days. triamcinolo 2020- No [id number] Apply to [place] [address] 11-17 area(s) 2 ity of acetonide 00:00: 04:59 (two) [place] 0.1 % cream 00 :00 times Medical daily for Branch 30 days. triamcinolo 2020-2020- No [id number] Apply to [place] [address] 11-17 area(s) 2 ity of acetonide 00:00: 04:59 (two) [place] 0.1 % cream 00 :00 times Medical daily for Branch 30 days. triamcinolo 2020- No [id number] Apply to [place] [address] 11-17 area(s) 2 ity of acetonide 00:00: 04:59 (two) [place] 0.1 % cream 00 :00 times Medical daily for Branch 30 days. triamcinolo 2020- No [id number] Apply to [place] [address] area(s) 2 ity of acetonide 00:00: 04:59 (two) [place] 0.1 % cream 00 :00 times Medical daily for Branch 30 days. triamcinolo 2020- No [id number] Apply to [place] [address] 11-17 area(s) 2 ity of acetonide 00:00: 04:59 (two) [place] 0.1 % cream 00 :00 times Medical daily for Branch 30 days. triamcinolo 2020-2020- No [id number] Apply to [place] [address] 11-17 area(s) 2 ity of acetonide 00:00: 04:59 (two) [place] 0.1 % cream 00 :00 times Medical daily for Branch 30 days. triamcinolo 2020- No [id number] Apply to [place] [address] area(s) 2 ity of acetonide 00:00: 04:59 (two) [place] 0.1 % cream 00 :00 times Medical daily for Branch 30 days. triamcinolo 2020-2020- No [id number] Apply to [facility] 10-17 area(s) 2 ity of acetonide 00:00: 04:59 (two) [place] 0.1 % cream 00 :00 times Medical daily for Branch 30 days. triamcinolo 2020-2020- No [id number] Apply to [facility] 10-17 area(s) 2 ity of acetonide 00:00: 04:59 (two) [place] 0.1 % cream 00 :00 times Medical daily for Branch 30 days. triamcinolo 2020- No [id number] Apply to [facility] 10-17 area(s) 2 ity of acetonide 00:00: 04:59 (two) [place] 0.1 % cream 00 :00 times Medical daily for Branch 30 days. ALPRAZolam Yes .25mg Take 0.25 U nivers 0.25 mg 7-23 mg by ity of tablet 00:00: mouth. [place] [facility] ALPRAZolam Yes .25mg Take 0.25 U nivers 0.25 mg 7-23 mg by ity of tablet 00:00: mouth. [place] [facility] ALPRAZolam Yes .25mg Take 0.25 U nivers 0.25 mg 7-23 mg by ity of tablet 00:00: mouth. [place] [facility] ALPRAZolam Yes .25mg Take 0.25 U nivers 0.25 mg 7-23 mg by ity of tablet 00:00: mouth. [place] [facility] ALPRAZolam 0 Yes .25mg Take 0.25 U nivers 0.25 mg 7-23 mg by ity of tablet 00:00: mouth. [place] [facility] ALPRAZolam 0 Yes .25mg Take 0.25 U nivers 0.25 mg 7-23 mg by ity of tablet 00:00: mouth. [place] [facility] ALPRAZolam 0 Yes .25mg Take 0.25 U nivers 0.25 mg 7-23 mg by ity of tablet 00:00: mouth. [place] [facility] ALPRAZolam 0 Yes .25mg Take 0.25 U [...] by ity of tablet 00:00: mouth. [place] [facility] Branch ALPRAZolam 0 Yes .25mg Take 0.25 [...] 1 [place] mg 00 :[place] dose, [facility] 10/09/20 at Branch 1100, REINA loratadine 0 Yes [id number] 10mg Take 1 Univers 10 mg 7-20 tablet by ity of tablet 00:00: mouth [place] 00 daily. Medical Branch loratadine 0 Yes [id number] 10mg Take 1 Univers 10 mg 7-20 tablet by ity of tablet 00:00: mouth [place] 00 daily. Medical Branch loratadine 0 Yes [id number] 10mg Take 1 Univers 10 mg 7-20 tablet by ity of tablet 00:00: mouth [place] 00 daily. Medical Branch loratadine 0 Yes [id number] 10mg Take 1 Univers 10 mg 7-20 tablet by ity of tablet 00:00: mouth [place] 00 daily. Medical Branch loratadine 0 Yes [id number] 10mg Take 1 Univers 10 mg 7-20 tablet by ity of tablet 00:00: mouth [place] 00 daily. Medical Branch loratadine 0 Yes [id number] 10mg Take 1 [facility] 10 mg 7-20 tablet by ity of tablet 00:00: mouth [place] 00 daily. Medical Branch loratadine 0 Yes [id number] 10mg Take 1 Univers 10 mg 7-20 tablet by ity of tablet 00:00: mouth [place] 00 daily. [facility] Branch loratadine 0 Yes [id number] 10mg Take 1 Univers 10 mg 7-20 tablet by ity of tablet 00:00: mouth [place] 00 daily. [facility] Branch loratadine 0 Yes [id number] 10mg Take 1 Univers 10 mg 7-20 tablet by ity of tablet 00:00: mouth [place] 00 daily. [facility] Branch loratadine 0 Yes [id number] 10mg Take 1 Univers 10 mg 7-20 tablet by ity of tablet 00:00: mouth [place] 00 daily. [facility] Branch loratadine 2021-0 Yes [id number] 10mg Take 1 Univers 10 mg 7-20 tablet by ity of tablet 00:00: mouth [place] 00 daily. Medical Branch loratadine Yes [id number] 10mg Take 1 [facility] 10 mg 7-20 tablet by ity of tablet 00:00: mouth [place] 00 daily. Medical Branch loratadine 2020- No [id number] 10mg Take 1 Univers 10 mg 7-20 09-16 tablet by ity of tablet 00:00: 00:00 mouth [place] 00 :00 daily. Medical Branch loratadine 2020- No [id number] 10mg Take 1 Univers 10 mg 7-20 09-16 tablet by ity of tablet 00:00: 00:00 mouth [place] 00 :00 daily. Medical Branch loratadine 2020- No [id number] 10mg Take 1 [facility] 10 mg 7-20 09-16 tablet by ity of tablet 00:00: 00:00 mouth [place] 00 :00 daily. Medical Branch loratadine 2020- No [id number] 10mg Take 1 Univers 10 mg 7-20 09-16 tablet by ity of tablet 00:00: 00:00 mouth [place] 00 :00 daily. Medical Branch predniSONE 2020- No [id number] 60mg Take 3 Univers 20 mg 7-20 [...] inhaler 00 Medical Branch ibuprofen 2020-0 Yes [id number] 800mg Take 1 [facility] 800 mg 2-21 [id number] tablet by ity of tablet 00:00: mouth every 8 Medical (eight) Branch hours as needed for Pain (scale 4-6). ibuprofen 2020-0 Yes [id number] 800mg Take 1 [facility] 800 mg 2-21 [id number] tablet by ity of tablet 00:00: mouth every 8 Medical (eight) Branch hours as needed for Pain (scale 4-6). ibuprofen 2020-0 Yes [id number] 800mg Take 1 [facility] 800 mg 2-21 [id number] tablet by ity of tablet 00:00: [facility] every 8 Medical (eight) Branch hours as needed for Pain (scale 4-6). ibuprofen 2020-0 Yes [id number] 800mg Take 1 Univers 800 mg 2-21 [id number] tablet by ity of tablet 00:00: mouth every 8 Medical (eight) Branch hours as needed for Pain (scale 4-6). ibuprofen 2020-0 Yes [id number] 800mg Take 1 Univers 800 mg 2-21 [id number] tablet by ity of tablet 00:00: mouth every 8 Medical (eight) Branch hours as needed for Pain (scale 4-6). ibuprofen 2020-0 Yes [id number] 800mg Take 1 [facility] 800 mg 2-21 [id number] tablet by ity of tablet 00:00: mouth [place] 00 every 8 Medical (eight) Branch hours as needed for Pain (scale 4-6). ibuprofen 2020-0 Yes [id number] 800mg Take 1 [facility] 800 mg 2-21 [id number] tablet by ity of tablet 00:00: mouth [place] 00 every 8 Medical (eight) Branch hours as needed for Pain (scale 4-6). ibuprofen 2020-0 Yes [id number] 800mg Take 1 [facility] 800 mg 2-21 [id number] tablet by ity of tablet 00:00: mouth [place] 00 every 8 Medical (eight) Branch hours as needed for Pain (scale 4-6). ibuprofen 0 Yes [id number] 800mg Take 1 [facility] 800 mg 2-21 [id number] tablet by ity of tablet 00:00: mouth [place] 00 every 8 Medical (eight) Branch hours as needed for Pain (scale 4-6). ibuprofen Yes [id number] 800mg Take 1 [facility] 800 mg 2-21 [id number] tablet by ity of tablet 00:00: mouth [place] 00 every 8 Medical (eight) Branch hours as needed for Pain (scale 4-6). ibuprofen 2020- No [id number] 800mg Take 1 [facility] 800 mg 2-21 07-31 [id number] tablet by ity o f tablet 00:00: [...] Indication s: acute pain ibuprofen 2019-03 Yes [id number] 600mg Take 1 [facility] 600 mg 1-14 [...] Indication s: acute pain ibuprofen 2019-03 Yes [id number] 600mg Take 1 [facility] 600 mg 1-14 [...] Indication s: acute pain ibuprofen 2019-03 Yes [id number] 600mg Take 1 [facility] 600 mg 1-14 [...] Indication s: acute pain ibuprofen 2019-03 Yes [id number] 600mg Take 1 [facility] 600 mg 1-14 [...] Indication s: acute pain ibuprofen 2019-03 Yes [id number] 600mg Take 1 [facility] 600 mg 1-14 [...] Indication s: acute pain ibuprofen 2019-03 Yes [id number] 600mg Take 1 [facility] 600 mg 1-14 [...] Indication s: acute pain ibuprofen 2019-03 Yes [id number] 600mg Take 1 [facility] 600 mg 1-14 [...] Indication s: acute pain ibuprofen 2019-03 Yes [id number] 600mg Take 1 [facility] 600 mg 1-14 [...] Indication s: acute pain ibuprofen 2019-03 Yes [id number] 600mg Take 1 [facility] 600 mg 1-14 [...] Indication s: acute pain ibuprofen 2019-03 Yes [id number] 600mg Take 1 [facility] 600 mg 1-14 [...] Indication s: acute pain ibuprofen 2019-03 Yes [id number] 600mg Take 1 [facility] 600 mg 1-14 [...] Indication s: acute pain ibuprofen 2019-03 Yes [id number] 600mg Take 1 [facility] 600 mg 1-14 [...] Indication s: acute pain ibuprofen 2019-03 Yes [id number] 600mg Take 1 [facility] 600 mg 1-14 [...] Indication s: acute pain ibuprofen 2019-03- No [id number] 600mg Take 1 [facility] 600 mg 04-0531 [...] by mouth ity of tablet 15:35: at [place] [address] bedtime. Medical Branch atorvastati 2020-0 Yes 10mg Take 10 mg Univers n 10 mg 8-31 by mouth ity of tablet 15:35: at [place] [address] bedtime. Medical Branch atorvastati 2020-0 Yes 10mg Take 10 mg Univers n 10 mg 8-31 by mouth ity of tablet 15:35: at [place] [address] bedtime. Medical Branch atorvastati 2020-0 Yes 10mg Take 10 mg Univers n 10 mg 8-31 by mouth ity of tablet 15:35: at [place] [address] bedtime. Medical Branch atorvastati 2020-0 Yes 10mg Take 10 mg Univers n 10 mg 8-31 by mouth ity of tablet 15:35: at [place] [address] bedtime. Medical Branch atorvastati 2020-0 Yes 10mg Take 10 mg Univers n 10 mg 8-31 by mouth ity of tablet 15:35: at [place] [address] bedtime. Medical Branch atorvastati 2020-0 Yes 10mg Take 10 mg Univers n 10 mg 8-31 by mouth ity of tablet 15:35: at [place] [address] bedtime. Medical Branch atorvastati 2020-0 Yes 10mg Take 10 mg Univers n 10 mg 8-31 by mouth ity of tablet 15:35: at [place] [address] bedtime. Medical Branch atorvastati 2020-0 Yes 10mg Take 10 mg Univers n 10 mg 8-31 by mouth ity of tablet 15:35: at [place] [address] bedtime. Medical Branch atorvastati 2020-0 Yes 10mg Take 10 mg Univers n 10 mg 8-31 by mouth ity of tablet 15:35: at [place] [address] bedtime. Medical Branch atorvastati 2020-0 Yes 10mg Take 10 mg Univers n 10 mg 8-31 by mouth ity of tablet 15:35: at [place] [address] bedtime. Medical Branch atorvastati 2020-0 Yes 10mg Take 10 mg Univers n 10 mg 8-31 by mouth ity of tablet 15:35: at [place] [address] bedtime. Medical Branch atorvastati 2020-0 Yes 10mg Take 10 mg Univers n 10 mg 8-31 by mouth ity of tablet 15:35: at [place] [address] bedtime. Medical Branch atorvastati 2020-0 Yes 10mg Take 10 mg Univers n 10 mg 8-31 by mouth ity of tablet 15:35: at [place] [address] bedtime. Medical Branch atorvastati 2020-0 Yes 10mg Take 10 mg Univers n 10 mg 8-31 by mouth ity of tablet 15:35: at [place] [address] bedtime. Medical Branch atorvastati 2020-0 Yes 10mg Take 10 mg Univers n 10 mg 8-31 by mouth ity of tablet 15:35: at [place] [address] bedtime. Medical Branch rosuvastati 2020-0 2020- No [...] 8-31 by mouth. ity of tablet 15:35: [place] [address] Medical Branch propranoloL 2020-0 Yes 10mg Take 10 mg Univers 10 mg 8-31 by mouth 2 ity of tablet 15:35: (two) [place] 36 times Medical daily. Branch aspirin 81 2020-0 Yes 81mg Take 81 mg U nivers mg EC 8-31 by mouth. ity of tablet 15:35: [place] [address] Medical Branch propranoloL 2020-0 Yes 10mg Take 10 mg Univers 10 mg 8-31 by mouth 2 ity of tablet 15:35: (two) [place] 36 times Medical daily. Branch aspirin 81 2020-0 Yes 81mg Take 81 mg U nivers mg EC 8-31 by mouth. ity of tablet 15:35: [place] [address] Medical Branch propranoloL 2020-0 Yes 10mg Take 10 mg Univers 10 mg 8-31 by mouth 2 ity of tablet 15:35: (two) [place] 36 times Medical daily. Branch aspirin 81 2020-0 Yes 81mg Take 81 mg U nivers mg EC 8-31 by mouth. ity of tablet 15:35: [place] [address] Medical Branch aspirin 81 2020-0 Yes 81mg Take 81 mg U nivers mg EC 8-31 by mouth. ity of tablet 15:35: [place] [address] Medical Branch propranoloL 2020-0 Yes 10mg Take 10 mg Univers 10 mg 8-31 by mouth 2 ity of tablet 15:35: (two) [place] 36 times Medical daily. Branch aspirin 81 2020-0 Yes 81mg Take 81 mg U nivers mg EC 8-31 by mouth. ity of tablet 15:35: [place] [address] Medical Branch propranoloL 2020-0 Yes 10mg Take 10 mg Univers 10 mg 8-31 by mouth 2 ity of tablet 15:35: (two) [place] 36 times Medical daily. Branch aspirin 81 2020-0 Yes 81mg Take 81 mg U nivers mg EC 8-31 by mouth. ity of tablet 15:35: [place] [address] Medical Branch propranoloL 2020-0 Yes 10mg Take 10 mg Univers 10 mg 8-31 by mouth 2 ity of tablet 15:35: (two) [place] 36 times Medical daily. Branch aspirin 81 2020-0 Yes 81mg Take 81 mg U nivers mg EC 8-31 by mouth. ity of tablet 15:35: [address] Branch propranoloL 2020-0 Yes 10mg Take 10 mg Univers 10 mg 8-31 by mouth 2 ity of tablet 15:35: (two) [place] 36 times Medical daily. Branch aspirin 81 2020-0 Yes 81mg Take 81 mg U nivers mg EC 8-31 by mouth. ity of tablet 15:35: [place] [address] Medical Branch propranoloL 2020-0 Yes 10mg Take 10 mg Univers 10 mg 8-31 by mouth 2 ity of tablet 15:35: (two) [place] 36 times Medical daily. Branch aspirin 81 2020-0 Yes 81mg Take 81 mg U nivers mg EC 8-31 by mouth. ity of tablet 15:35: [place] [address] Medical Branch propranoloL 2020-0 Yes 10mg Take 10 mg Univers 10 mg 8-31 by mouth 2 ity of tablet 15:35: (two) [place] 36 times Medical daily. Branch aspirin 81 2020-0 Yes 81mg Take 81 mg U nivers mg EC 8-31 by mouth. ity of tablet 15:35: [address] Branch propranoloL 2020-0 Yes 10mg Take 10 mg Univers 10 mg 8-31 by mouth 2 ity of tablet 15:35: (two) [place] 36 times Medical daily. Branch aspirin 81 2020-0 Yes 81mg Take 81 mg U nivers mg EC 8-31 by mouth. ity of tablet 15:35: [place] [address] Medical Branch propranoloL 2020-0 Yes 10mg Take 10 mg Univers 10 mg 8-31 by mouth 2 ity of tablet 15:35: (two) [place] 36 times Medical daily. Branch aspirin 81 2020-0 Yes 81mg Take 81 mg U nivers mg EC 8-31 by mouth. ity of tablet 15:35: [address] Branch propranoloL 2020-0 Yes 10mg Take 10 mg Univers 10 mg 8-31 by mouth 2 ity of tablet 15:35: (two) [place] 36 times Medical daily. Branch aspirin 81 2020-0 Yes 81mg Take 81 mg U nivers mg EC 8-31 by mouth. ity of tablet 15:35: [address] Branch propranoloL 2020-0 Yes 10mg Take 10 mg Univers 10 mg 8-31 by mouth 2 ity of tablet 15:35: (two) [place] 36 times Medical daily. Branch aspirin 81 2020-0 Yes 81mg Take 81 mg U nivers mg EC 8-31 by mouth. ity of tablet 15:35: [address] Branch propranoloL 2020-0 Yes 10mg Take 10 mg Univers 10 mg 8-31 by mouth 2 ity of tablet 15:35: (two) [place] 36 times Medical daily. Branch aspirin 81 2020-0 Yes 81mg Take 81 mg U nivers mg EC 8-31 by mouth. ity of tablet 15:35: [address] propranoloL 2020-0 Yes 10mg Take 10 mg Univers 10 mg 8-31 by mouth 2 ity of tablet 15:35: (two) [place] 36 times Medical daily. Branch aspirin 81 2020-0 Yes 81mg Take 81 mg U nivers mg EC 8-31 by mouth. ity of tablet 15:35: [address] propranoloL 2020-0 Yes 10mg Take 10 mg Univers 10 mg 8-31 by mouth 2 ity of tablet 15:35: (two) [place] 36 times Medical daily. Branch aspirin 81 2020-0 Yes 81mg Take 81 mg U nivers mg EC 8-31 by mouth. ity of tablet 15:35: [address] propranoloL 2020-0 Yes 10mg Take 10 mg Univers 10 mg 8-31 by mouth 2 ity of tablet 15:35: (two) [place] 36 times Medical daily. Branch aspirin 81 2020-0 Yes 81mg Take 81 mg U nivers mg EC 8-31 by mouth. ity of tablet 15:35: [address] Branch propranoloL 2020-0 Yes 10mg Take 10 mg Univers 10 mg 8-31 by mouth 2 ity of tablet 15:35: (two) [place] 36 times Medical daily. Branch aspirin 81 2020-0 Yes 81mg Take 81 mg U nivers mg EC 8-31 by mouth. ity of tablet 15:35: [address] propranoloL 2020-0 Yes 10mg Take 10 mg Univers 10 mg 8-31 by mouth 2 ity of tablet 15:35: (two) [place] 36 times Medical daily. Branch aspirin 81 2020-0 Yes 81mg Take 81 mg U nivers mg EC 8-31 by mouth. ity of tablet 15:35: [address] propranoloL 2020-0 Yes 10mg Take 10 mg Univers 10 mg 8-31 by mouth 2 ity of tablet 15:35: (two) [place] 36 times Medical daily. Branch aspirin 81 2020-0 Yes 81mg Take 81 mg U nivers mg EC 8-31 by mouth. ity of tablet 15:35: [address] propranoloL 2020-0 Yes 10mg Take 10 mg Univers 10 mg 8-31 by mouth 2 ity of tablet 15:35: (two) [place] 36 times Medical daily. Branch aspirin 81 2020-0 Yes 81mg Take 81 mg U nivers mg EC 8-31 by mouth. ity of tablet 15:35: [address] propranoloL 2020-0 Yes 10mg Take 10 [...] of 15:26: 00:00 daily. [place] 54 :00 [facility] Branch RISPERIDONE 2020-0 2020- No 3mg Take [...] capsule 15:26: 00:00 mouth. [place] 35 :00 [facility] Branch carvediloL 2020-0 2020- No 1{tbl} Take [...] 8-31 by mouth. ity of tablet 10:35: [address] aspirin 81 2020-0 Yes 81mg Take 81 mg U nivers mg EC 8-31 by mouth. ity of tablet 10:35: [address] aspirin 81 2020-0 Yes 81mg Take 81 mg U nivers mg EC 8-31 by mouth. ity of tablet 10:35: [address] aspirin 81 2020-0 Yes 81mg Take 81 mg U nivers mg EC 8-31 by mouth. ity of tablet 10:35: [address] aspirin 81 2020-0 Yes 81mg Take 81 mg U nivers mg EC 8-31 by mouth. ity of tablet 10:35: [address] aspirin 81 2020-0 Yes 81mg Take 81 mg U nivers mg EC 8-31 by mouth. ity of tablet 10:35: [address] aspirin 81 2020-0 Yes 81mg Take 81 mg U nivers mg EC 8-31 by mouth. ity of tablet 10:35: [address] aspirin 81 2020-0 Yes 81mg Take 81 mg U nivers mg EC 8-31 by mouth. ity of tablet 10:35: [address] aspirin 81 2020-0 Yes 81mg Take 81 mg U nivers mg EC 8-31 by mouth. ity of tablet 10:35: [address] aspirin 81 2020-0 Yes 81mg Take 81 mg U nivers mg EC 8-31 by mouth. ity of tablet 10:35: [address] aspirin 81 2020-0 Yes 81mg Take 81 mg U nivers mg EC 8-31 by mouth. ity of tablet 10:35: [address] aspirin 81 2020-0 Yes 81mg Take 81 mg U nivers mg EC 8-31 by mouth. ity of tablet 10:35: [address] aspirin 81 2020-0 Yes 81mg Take 81 mg U nivers mg EC 8-31 by mouth. ity of tablet 10:35: [address] aspirin 81 2020-0 Yes 81mg Take 81 mg U nivers mg EC 8-31 by mouth. ity of tablet 10:35: [address] aspirin 81 2020-0 Yes 81mg Take 81 mg U nivers mg EC 8-31 by mouth. ity of tablet 10:35: [address] carvediloL 2020-0 Yes 1{tbl} Take 1 Uni vers 12.5 mg 1-30 tablet by ity of tablet 14:12: mouth. [address] gabapentin 2020-0 Yes 300mg Take 300 Un bam 300 mg 1-30 mg by ity of capsule 14:12: mouth. [address] risperiDONE 2020-0 Yes 3mg Take 3 mg U nivers 3 mg tablet 1-30 by mouth. ity of 14:12: [address] venlafaxine 2020-0 Yes 150mg Take 150 U nivers XR 150 mg 1-30 mg by ity of 24 hr 14:12: mouth. [address] carvediloL 2020-0 Yes 1{tbl} Take 1 Uni vers 12.5 mg 1-30 tablet by ity of tablet 14:12: mouth. [address] gabapentin 2020-0 Yes 300mg Take 300 Un bam 300 mg 1-30 mg by ity of capsule 14:12: mouth. [address] risperiDONE 2020-0 Yes 3mg Take 3 mg U nivers 3 mg tablet 1-30 by mouth. ity of 14:12: [address] venlafaxine 2020-0 Yes 150mg Take 150 U nivers XR 150 mg 1-30 mg by ity of 24 hr 14:12: mouth. [address] aspirin 81 2020-0 Yes 81mg Take 81 mg U nivers mg EC 1-30 by mouth. ity of tablet 14:12: [address] rosuvastati 2020-0 Yes 10mg Take 10 mg Univers n 10 mg 1-30 by mouth. ity of tablet 14:12: [address] aspirin 81 2020-0 Yes 81mg Take [...] 8 H PRN ity o f 00:00: [place] [address] Medical Branch naproxen 2020-0 Yes TK 1 T PO Univ ers 500 mg -26 BID WF ity of tablet 00:00: [place] [address] Medical Branch traMADol 50 2020-0 Yes TK 1 T PO U nivers mg tablet -26 Q 8 H PRN ity o f 00:00: [place] [address] Medical Branch naproxen 2020-0 Yes TK 1 T PO Univ ers 500 mg 1-26 BID WF ity of tablet 00:00: [place] [address] Medical Branch naproxen 2020-0 Yes TK 1 T PO Univ ers 500 mg 1-26 BID WF ity of tablet 00:00: [place] [address] Medical Branch naproxen 2020-0 Yes TK 1 T PO Univ ers 500 mg -26 BID WF ity of tablet 00:00: [place] [address] Medical Branch naproxen 2020-0 Yes TK 1 T PO Univ ers 500 mg -26 BID WF ity of tablet 00:00: [place] [address] Medical Branch naproxen 2020-0 Yes TK 1 T PO Univ ers 500 mg -26 BID WF ity of tablet 00:00: [place] [address] Medical Branch naproxen 2020-0 Yes TK 1 T PO Univ ers 500 mg 1-26 BID WF ity of tablet 00:00: [place] [address] Medical Branch naproxen 2020-0 Yes TK 1 T PO Univ ers 500 mg 1-26 BID WF ity of tablet 00:00: [place] [address] Medical Branch naproxen 2020-0 Yes TK 1 T PO Univ ers 500 mg 1-26 BID WF ity of tablet 00:00: [place] [address] Medical Branch naproxen 2020-0 Yes TK 1 T PO Univ ers 500 mg 1-26 BID WF ity of tablet 00:00: [place] [address] Medical Branch naproxen 2020-0 Yes TK 1 [...] 0-02 by mouth ity of 03:17: daily. [place] [address] Medical Branch gabapentin 2017-03 Yes 300mg Take 300 Un bam 100 mg 0-02 mg by ity of capsule 03:17: mouth 4 [place] 15 (four) Medical times Branch daily. carvedilol 2017-03 Yes 12.5mg Take 12.5 Univers 12.5 mg 0-02 mg by ity of tablet 03:17: mouth 2 [place] [address] (two) Medical times Branch daily. venlafaxine 2017-03 [...] 0-02 by mouth ity of 03:17: daily. [address] gabapentin 2017-03 Yes 300mg Take 300 Un bam 100 mg 0-02 mg by ity of capsule 03:17: mouth 4 [place] 15 (four) Medical times Branch daily. carvedilol 2017-03 Yes 12.5mg Take 12.5 Univers 12.5 mg 0-02 mg by ity of tablet 03:17: mouth 2 [place] [address] (two) Medical times Branch daily. venlafaxine 2017-03 [...] 0-02 by mouth ity of 03:17: daily. [address] citalopram citalopram No 1 Q1D citalopram [facility] 20 mg 20 mg 20 [...] 600 mg da tablet tablet tablet [facility] ibuprofen ibuprofen No ibuprofen [place] 600 mg 600 mg 600 mg da tablet tablet tablet [facility] ibuprofen ibuprofen No ibuprofen [place] 800 mg 800 mg 800 mg da tablet tablet tablet [facility] ketorolac ketorolac No ketorolac [place] 0.5 % eye 0.5 % eye 0.5 % eye da drops drops drops [facility] naproxen naproxen No naproxen [place] 500 mg 500 mg 500 mg da tablet tablet tablet [facility] ondansetron ondansetron No ondansetro [place] 4 mg 4 mg n 4 mg da disintegrat disintegrat disintegra [facility] ing tablet ing tablet ting al tablet [facility] prednisolon prednisolon No prednisolo [place] e acetate 1 e acetate 1 ne acetate da % eye % eye 1 % eye [facility] drops,suspe drops,suspe drops,susp al nsion nsion ension [facility] prednisone prednisone No prednisone [place] 20 mg 20 mg 20 mg da tablet tablet tablet [facility] propranolol propranolol No propranolo [place] 10 mg 10 mg l 10 mg da tablet tablet tablet [facility] risperidone risperidone No risperidon [place] 1 mg tablet 1 mg tablet e 1 mg da tablet [facility] risperidone risperidone No risperidon [place] 4 mg tablet 4 mg tablet e 4 mg da tablet [facility] tramadol tramadol [...] Completed Unive rsity of MODERNA VACCINE 00:00:00 [facility] SARS-COV-2 COVID-19 2020-08-06 Completed Unive rsity of MODERNA VACCINE 00:00:00 [facility] SARS-COV-2 COVID-19 2020-08-06 Completed Unive rsity of MODERNA VACCINE 00:00:00 [facility] SARS-COV-2 COVID-19 2020-08-06 Completed Unive rsity of MODERNA VACCINE 00:00:00 [facility] SARS-COV-2 COVID-19 2020-08-06 Completed Unive rsity of MODERNA VACCINE 00:00:00 [facility] SARS-COV-2 COVID-19 2020-08-06 Completed Unive rsity of MODERNA VACCINE 00:00:00 [facility] SARS-COV-2 COVID-19 2020-08-06 Completed Unive rsity of MODERNA VACCINE 00:00:00 [facility] SARS-COV-2 COVID-19 2020-08-06 Completed Unive rsity of MODERNA VACCINE 00:00:00 [facility] SARS-COV-2 COVID-19 2020-08-06 Completed Unive rsity of MODERNA VACCINE 00:00:00 [facility] SARS-COV-2 COVID-19 2020-08-06 Completed Unive rsity of [...] Unive rsity of MODERNA VACCINE 00:00:00 [place] [facility] ical Branch SARS-COV-2 COVID-19 2020-08-06 Completed Unive rsity of MODERNA VACCINE 00:00:00 [place] [facility] SARS-COV-2 COVID-19 2020-08-06 Completed Unive rsity of MODERNA VACCINE 00:00:00 [place] [facility] ical Branch SARS-COV-2 COVID-19 2020-08-06 Completed Unive rsity of MODERNA VACCINE 00:00:00 [place] [facility] ical Branch SARS-COV-2 COVID-19 2020-08-06 Completed Unive rsity of MODERNA VACCINE 00:00:00 [place] [facility] ical Branch SARS-COV-2 COVID-19 2020-08-06 Completed Unive [...] Unive rsity of MODERNA VACCINE 00:00:00 [place] [facility] ical Branch SARS-COV-2 COVID-19 2020-07-09 Completed Unive [...] Completed Unive rsity of MODERNA VACCINE 00:00:00 [facility] SARS-COV-2 COVID-19 2020-07-09 Completed Unive rsity of MODERNA VACCINE 00:00:00 [facility] influenza, influenza, 2018-11-21 Completed [facility] injectable, injectable, 00:00:00 Practice quadrivalent quadrivalent Vital Signs Vital Name Observation Time Observation Value Comments Source Systolic blood 2021-03-21 18:04:00 124 mm[Hg] Univer sity of pressure [facility] Diastolic blood 2021-03-21 18:04:00 77 mm[Hg] Unive rsity of pressure [facility] Heart rate 2021-03-21 18:04:00 94 /min Universi ty of [facility] Body temperature 2021-03-21 18:04:00 39 Priya Univ ersity of [facility] Respiratory rate 2021-03-21 18:04:00 18 /min Univ ersity of [facility] Body weight 2021-03-21 18:04:00 71.668 kg Universi ty of [place] [facility] [place] BMI 2021-03-21 18:04:00 22.67 kg/m2 Universi ty of [place] [facility] [place] Oxygen saturation in 2021-03-21 18:04:00 99 /min University of Arterial blood by [facility] Pulse oximetry Branch Systolic blood 2021-02-28 18:18:00 127 mm[Hg] Univer sity of pressure [place] [facility] [place] Diastolic blood 2021-02-28 18:18:00 77 mm[Hg] Unive rsity of pressure [facility] Heart rate 2021-02-28 18:18:00 97 /min Universi ty of [place] [facility] Body temperature 2021-02-28 18:18:00 37 Priya Univ ersity of [facility] Branch Respiratory rate 2021-02-28 18:18:00 18 /min Univ ersity of [place] [facility] [place] Body weight 2021-02-28 18:18:00 97.977 kg Universi ty of [place] [facility] BMI 2021-02-28 18:18:00 30.99 kg/m2 Universi ty of [place] [facility] [place] Oxygen saturation in 2021-02-28 18:18:00 99 /min University of Arterial blood by [facility] Pulse oximetry Branch Systolic blood 2021-01-18 [...] /min University of Arterial blood by [place] [facility] Pulse oximetry Branch Systolic blood 2020-12-06 [...] 94 /min University of Arterial blood by [employer] [facility] Pulse oximetry Branch Systolic blood 2020-10-21 [...] 98 /min University of Arterial blood by [facility] Pulse oximetry Branch Systolic blood 2020-10-09 14:16:00 127 mm[Hg] Univer sity of pressure [place] [facility] Diastolic blood 2020-10-09 14:16:00 77 mm[Hg] Unive rsity of [facility] Heart rate 2020-10-09 14:16:00 90 /min Universi ty of [place] [facility] Body temperature 2020-10-09 14:16:00 36.5 Priya [facility] ersity of [place] [facility] [place] Respiratory rate 2020-10-09 14:16:00 18 /min Univ ersity of [place] [facility] Body weight 2020-10-09 14:16:00 72.576 kg Universi ty of [place] [facility] BMI 2020-10-09 14:16:00 22.96 kg/m2 Universi ty of [place] [facility] Oxygen saturation in 2020-10-09 14:16:00 97 /min University of Arterial blood by [facility] Pulse oximetry Branch Height 2020-07-05 00:00:00 70 [in_i] [facility] BMI (Body Mass 2020-07-05 00:00:00 22.2 kg/m2 [facility]) Practice Body Weight 2020-07-05 00:00:00 155 [lb_av] [facility] Systolic blood 2020-05-13 17:37:00 126 mm[Hg] Univer sity of [facility] Diastolic blood 2020-05-13 17:37:00 76 mm[Hg] Unive rsity of [facility] Heart rate 2020-05-13 [...] 97 /min University of Arterial blood by [facility] Pulse oximetry Branch Systolic blood 2020-05-13 [...] 97 /min University of Arterial blood by [facility] Pulse oximetry Branch Systolic blood 2020-02-04 [...] 97 /min University of Arterial blood by [facility] Pulse oximetry Branch Systolic blood 2020-02-04 [...] 97 /min University of Arterial blood by [facility] Pulse oximetry Branch Systolic blood 2019-11-21 [...] 96 /min University of Arterial blood by [facility] Pulse oximetry Branch Systolic blood 2019-11-21 15:33:00 117 mm[Hg] Univer sity of pressure [place] [facility] Diastolic blood 2019-11-21 15:33:00 74 mm[Hg] Unive rsity of pressure [place] [facility] Heart rate 2019-11-21 15:33:00 57 /min Universi ty of [place] [facility] [place] Respiratory rate 2019-11-21 15:33:00 19 /min Univ ersity of [facility] Body height 2019-11-21 15:33:00 177.8 cm Universi ty of [place] [facility] [place] Body weight 2019-11-21 15:33:00 68.085 kg Universi ty of [place] [facility] [place] BMI 2019-11-21 15:33:00 21.54 kg/m2 Universi ty of [facility] Oxygen saturation in 2019-11-21 15:33:00 96 /min [facility] Arterial blood by [facility] Pulse oximetry Branch Height 2019-07-05 00:00:00 70 [in_i] [facility] Practice BMI (Body Mass 2019-07-05 00:00:00 21.5 kg/m2 [facility] Family Index) Practice Body Weight 2019-07-05 00:00:00 150 [lb_av] [facility] Systolic blood 2019-04-21 14:11:00 133 mm[Hg] Univer sity of pressure [facility] Diastolic blood 2019-04-21 14:11:00 83 mm[Hg] Unive rsity of pressure [facility] Respiratory rate 2019-04-21 14:11:00 18 /min [facility] Body height 2019-04-21 14:11:00 180.3 cm Universi ty of [facility] Body weight 2019-04-21 14:11:00 65.772 kg Universi ty of [facility] BMI 2019-04-21 14:11:00 20.22 kg/m2 Universi ty [facility] Procedures Procedure Date / Time Performing Clinician Source Performed CONSENT/REFUSAL FOR 2021-03-21 17:58:58 Doctor Unassigned, [facility] [place] [facility] [place] [facility] ASSIGNMENT OF BENEFITS 2021-02-28 19:15:57 Doctor Unassigned, Un iversity of [place] [facility] CONSENT/REFUSAL FOR 2021-02-28 18:10:16 Doctor Mukundigned, [facility] [place] DI[facility] TREATMENT [place] MR FOOT LEFT WO CONTRAST 2021-02-25 15:23:46 Requisition, Paper [facility] CONSENT/REFUSAL FOR 2021-02-25 14:13:09 Doctor Unassigned, Unive rsity of [place] DIAGNOSIS AND TREATMENT [facility] PULMONARY FUNCTION TEST 2021-02-19 14:30:22 Luis Daniel Johnson [facility] (RESULTS) Medical Branch MEDICATION CORRESPONDENCE 2021-02-05 06:01:00 Doctor Nata, [facility] [place] [facility] MEDICATION CORRESPONDENCE 2021-01-26 05:01:00 Doctor Unassigned, [facility] [place] [facility] MEDICATION CORRESPONDENCE 2021-01-24 05:01:00 Doctor Unasspiotr, [facility] [place] [facility] MEDICATION CORRESPONDENCE 2021-01-22 05:01:00 Doctor Unasspiotr, [facility] [place] [facility] MEDICATION CORRESPONDENCE 2021-01-20 05:01:00 Doctor Peace [facility] [place] [facility] XR FOOT 3+ VW LEFT 2021-01-18 20:16:59 Alyssia Moss [facility] [place] XR ANKLE 3+ VW LEFT 2021-01-18 19:48:37 Alyssia Moss [facility] NOTICE OF PRIVACY 2021-01-18 18:11:37 Doctor Nata [facility] [place] [facility] CONSENT/REFUSAL FOR 2021-01-18 18:11:21 Doctor Peace [facility] DIAGNOSIS AND TREATMENT [place] [facility] CONSENT/REFUSAL FOR 2020-10-21 02:49:47 Doctor Peace [facility] DIAGNOSIS AND TREATMENT [place] [facility] CONSENT/REFUSAL FOR 2020-10-09 14:09:46 Doctor Peace [facility] DIAGNOSIS AND TREATMENT [place] [facility] INSURANCE CORRESPONDENCE 2020-09-28 05:01:00 Doctor Nata, [facility] [place] [facility] MEDICATION CORRESPONDENCE 2020-05-23 06:01:00 Doctor Nata, [facility] [place] [facility] XR WRIST <3 VW RIGHT 2020-05-13 18:03:58 Alyssia Moss [facility] Medical [place] NOTICE OF PRIVACY 2020-05-13 17:29:28 Doctor Nata, [facility] [place] [facility] CONSENT/REFUSAL FOR 2020-05-13 17:29:07 Doctor Peace [facility] DIAGNOSIS AND TREATMENT [place] [facility] REFERRAL- 2020-02-20 06:01:00 Doctor Unassigned, Universit y of [place] REQUEST/RESPONSE [facility] [place] [facility] 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 - ADC 2019-11-18 05:01:00 [facility] [place] [facility] ASSIGNMENT OF BENEFITS 2019-04-21 14:06:48 Doctor Unassigned, [facility] [place] [facility] Appendectomy [facility] Extraction of Cataract [facility] [place] [facility] Hernia Repair W/mesh [place] [facility] Plan of Care Planned Activity Planned Date Details Comments Source Instructions [facility] Encounters Start End Encounter Admission Attending Care Care Encounter Source Date/Time Date/Time Type Type Clinicians Facility Department ID 2021-01-21 Emergency [facility] [id number] Univers 12:14:06 ity of [facility] 2021-01-21 Emergency [facility] [id number] Univers 09:20:59 ity of [facility] 2021-01-20 Emergency [facility] [id number] Univers 00:18:41 ity of [facility] 2021-01-19 Emergency [facility] [id number] Univers 05:34:10 ity of [facility] 2021-08-02 2021-08-02 Outpatient R LUIS DANIEL JOHNSON [facility] [id number] Univers 10:00:00 10:00:00 LUIS DANIEL JOHNSON [id number] i ty of [facility] 2021-08-02 2021-08-02 Outpatient R LUIS DANIEL JOHNSON [facility] [id number] Univers 10:00:00 10:00:00 LUIS DANIEL JOHNSON i ty of [facility] 2021-03-29 2021-03-29 Outpatient R LUIS DANIEL JOHNSON [facility] [id number] Univers 14:00:00 14:00:00 LUIS DANIEL JOHNSON [id number] i ty of [facility] 2021-03-29 2021-03-29 Outpatient R LUIS DANIEL JOHNSON [facility] [id number] Univers 14:00:00 14:00:00 LUIS DANIEL JOHNSON i ty of [facility] 2021-03-21 2021-03-21 Emergency [facility] [id number] Univers 12:03:00 13:32:00 DANA ity of [facility] 2021-03-21 2021-03-21 Emergency Drever, [facility] [id number] Univers 12:03:00 13:32:00 Dana MORRISON [id number] ity of [place] [id number] [facility] [id number] [facility] 084 [place] 2021-02-28 2021-02-28 Emergency X GAFFNEY, [facility] ERT [id number] Univers 12:27:00 13:58:[address] [facility] 2021-02-28 2021-02-28 Emergency [facility] [id number] Univers 12:27:00 13:58:00 Rina PRINCE [id number] i ty of [place] [id number] [facility] [id number] [place] [address] [place] 2021-02-25 2021-02-25 Outpatient R RADIOLOGY [facility] [id number] Univers 08:13:07 23:59:00 ity of [facility] 2021-02-25 2021-02-25 Hospital Radiology [facility] [id number] Univers 08:13:07 23:59:00 Encounter PRINCE [id number] ity of [place] [id number] [facility] [id number] [facility] 804 [place] 2021-02-25 2021-02-25 Outpatient R [facility] [id number] Univers 09:00:00 09:00:00 [id number] ity of [facility] 2021-02-19 2021-02-19 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 10 ity of [place] [id number] [facility] [id number] [facility] 083 [place] 2021-02-19 2021-02-19 Outpatient R [facility] [id number] Univers 08:00:00 08:00:00 [id number] ity of [facility] 2021-02-19 2021-02-19 Outpatient R SIGRID [facility] [id number] Univers 08:00:00 08:00:00 DAVE ity of [facility] 2021-02-19 2021-02-19 Orders ONOFRE Johnson [id number] Univers 00:00:00 00:00:00 Only [place] [facility] [id number] i ty of [place] [id number] [address] Branch 2021-02-08 2021-02-08 Outpatient R LUIS DANIEL JOHNSON [facility] [id number] Univers 11:00:00 11:00:00 LUIS DANIEL JOHNSON [id number] i ty of [facility] 2021-02-05 2021-02-05 Orders Doctor ROSAMARIA [id number] Univers 00:00:00 00:00:00 Only Unassigned, LAURYN [id number] ity of [place] [facility] [id number] Kishore as [id number] [address] 2021-01-26 2021-01-26 Orders Doctor ROSAMARIA [id number] Univers 00:00:00 00:00:00 Only Unassigned, LAURYN [id number] ity of [place] [facility] [id number] Kishore as [id number] [address] 2021-01-24 2021-01-24 Orders Doctor ROSAMARIA Murdock.[id number] Univers 00:00:00 00:00:00 Only Unassigned, LAURYN [id number] ity of [facility] [facility] [id number] [place] as [id number] [address] 2021-01-22 2021-01-22 Orders Doctor ROSAMARIA [id number] Univers 00:00:00 00:00:00 Only Unassigned, LAURYN [id number] ity of [facility] [facility] [id number] [place] as [id number] [facility] 009 [place] 2021-01-20 2021-01-20 Orders Doctor ROSAMARIA [id number] Univers 00:00:00 00:00:00 Only Unassigned, LAURYN [id number] ity of [place] [facility] [id number] Kishore as [id number] [address] 2021-01-18 2021-01-18 Emergency [facility] [id number] Univers 13:34:00 16:30:00 ALYSSIA [facility] 2021-01-18 2021-01-18 Emergency [facility] [id number] Univers 13:34:00 16:30:00 Alyssia MORRISON [id number] i ty of [id number] [id number] [place] [address] [place] 2020-12-06 2020-12-06 Office Alex WVTAMY [id number] Univers 14:33:18 15:23:38 Visit Luis Daniel Morrison 350.1.13.10 [place] [phone] Ma dic[address] 2020-12-06 2020-12-06 Outpatient R LUIS DANIEL JOHNSON [facility] [id number] Univers 15:00:00 15:00:00 LUIS DANIEL JOHNSON [id number] i ty of [facility] 2020-12-06 2020-12-06 Outpatient R LUIS DANIEL JOHNSON [facility] [id number] Univers 14:40:00 14:40:00 LUIS DANIEL JOHNSON i ty of [facility] 2020-10-29 2020-10-29 Outpatient R [facility] [id number] -[id number] Univers 10:00:00 10:00:[id number] [facility] 2020-10-24 2020-10-24 Office ONOFRE Ruth [id number] Univers 13:31:57 14:01:33 Visit Sukhjinder R Y HEALTH 350.1.13.10 it[place] [phone] [address] 2020-10-24 2020-10-24 Outpatient R MANOJ [facility] [id number] -[id number] Univers 14:00:00 14:00:00 SUKHJINDER [id number] ity of [facility] 2020-10-24 2020-10-24 Outpatient Goyo RUTH [facility] [id number] Univers 14:00:00 14:00:[address] [facility] 2020-10-22 2020-10-22 Telephone [facility] [id number] Univers 00:00:00 00:00:00 Sukhjinder STILLPEC 350.1.13.10 ity of [place] [id number] [address] [facility] 2020-10-20 2020-10-20 Emergency [facility] [id number] Univers 22:06:00 22:44:00 Susy Morrison 350.1.13.10 [place] [phone] [facility] [address] 2020-10-20 2020-10-20 Case ESPINOZA Allison 1.2.139.390 [id number] Univers 00:00:00 00:00:00 Management Luis Enrique HEALTH 350.1.13.10 it[place] [phone] [address] 2020-10-18 2020-10-[address] [facility] 1.2.840.114 [id number] Univers 00:00:00 00:00:00 Sukhjinder Nance Y HEALTH 350.1.13.10 it[place] [phone] [address] 2020-10-17 2020-10-[address] [facility] 1.2.817.813 [id number] Univers 14:08:14 14:58:43 Visit Sukhjinder Nance Y HEALTH 350.1.13.10 ity of [facility] 4.2.7.2.[place] [phone] [facility] [address] 2020-10-17 2020-10-17 Outpatient Goyo RUTH, [facility] [id number] -[id number] Univers 14:30:00 14:30:[id number] [facility] 2020-10-17 2020-10-17 Outpatient Goyo RUTH [facility] [id number] Univers 14:30:00 14:30:00 SUKHJINDER [facility] 2020-10-09 2020-10-09 Emergency [facility] [id number] Univers 09:17:00 10:43:00 Alyssia Morrison 350.1.13.10 i [facility] [place]2.[place].2.[place] [phone] [facility] [address] 2020-09-28 2020-09-28 Orders Doctor ROSAMARIA 1.2.840.114 [id number] Univers 00:00:00 00:00:00 Only Unassigned, LAURYN 350.1.13.10 ity of [place] [facility] 4.2.7.2.686 Kishore as [id number] [facility] [address] 2020-08-06 2020-08-06 Outpatient Goyo HUBBARD [facility] [id number] Univers 08:30:00 08:30:[address] [facility] 2020-07-25 2020-07-25 Outpatient Paolo [facility] [id number] [facility] 05:42:00 05:42:00 _A_AH 93030 Family Practic e 2020-07-09 2020-07-09 [facility] [id number] [facility] 09:06:00 09:06:00 _A_AH 92391 Family Practic e 2020-07-09 2020-07-09 Outpatient [facility] [id number] Univers 08:30:00 08:30:[address] 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 2020-06-12 2020-06-12 Patient [facility] 1.2.840.114 [id number] 00:00:00 00:00:00 Outreach Eulalio PRIMARY 350.1.13.10 Nnamdi CARE 4.2.7.2.686 PAVILLION [id number] 388 2020-06-12 2020-06-12 [facility] 1.2.840.114 [id number] Univers 00:00:00 00:00:00 Outreach Eulalio PRIMARY 350.1.13.10 i ty of [place] [id number] Ma dicny [address] [place] 2020-05-23 2020-05-23 Orders Doctor ROSAMARIA 1.2.840.114 [id number] 00:00:00 00:00:00 Only Unassigned, LAURYN 350.1.13.10 [place] [facility] 4.2.7.2.686 [id number] 009 2020-05-23 2020-05-23 Orders Doctor ROSAMARIA 1.2.840.114 [id number] Univers 00:00:00 00:00:00 Only Unassigned, LAURYN 350.1.13.10 ity of [place] [facility] 4.2.7.2.686 Kishore as [id number] [facility] [address] 2020-05-13 2020-05-13 Emergency [facility] [id number] [id number] 11:38:00 12:32:00 Alyssia Morrison 350.1.13.10 [place] 4.2.7.2.686 [place] [id number] 084 2020-05-13 2020-05-13 Emergency [facility] 1.2.479.491 [id number] Univers 11:38:00 12:32:00 Alyssia Morrison 350.1.13.10 [place] [phone] [address] 2020-05-13 2020-05-13 Orders Doctor ROSAMARIA 1.2.840.114 [id number] 00:00:00 00:00:00 Only Unassigned, LAURYN 350.1.13.10 [place] [facility] 4.2.7.2.686 [id number] 009 2020-05-13 2020-05-13 Orders Doctor ROSAMARIA 1.2.840.114 [id number] Univers 00:00:00 00:00:00 Only Unassigned, LAURYN 350.1.13.10 ity of [place] [facility] 4.2.7.2.686 Kishore as [phone] [address] 2020-02-20 2020-02-20 Orders Doctor ROSAMARIA 1.2.840.114 [id number] 00:00:00 00:00:00 Only Unassigned, LAURYN 350.1.13.10 [place] [facility] 4.2.7.2.686 [id number] [facility] [place] 2020-02-20 2020-02-20 Orders Doctor BLANK 1.2.840.114 [id number] Univers 00:00:00 00:00:00 Only Unassigned, LAURYN 350.1.13.10 ity of [place] [facility] 4.2.7.2.686 Kishore as [phone] [address] 2020-02-04 2020-02-04 Emergency [place], [facility] 1.2.681.326 [id number] 12:43:00 13:48:00 Susy Morrison 350.1.13.10 [place] 4.2.7.2.686 [place] [id number] [facility] 2020-02-04 2020-02-04 Emergency [facility] 1.2.126.678 [id number] [facility] 12:43:00 13:48:00 Susy Morrison 350.1.13.10 i ty of [place] 4.2.7.2.686 [facility] [phone] [address] 2019-12-13 2019-12-13 Outpatient [facility] [address] [place] 05:32:00 05:32:00 HAN 0922 da [facility] Outreac [facility] Program 2019-12-06 2019-12-06 Outpatient AMBREEN_[facility] [address] [place] 05:36:00 05:36:00 HANJeanna 0915 da [facility] Outre[facility] Program 2019-12-06 2019-12-06 Nell [facility] - [id number] [place] 00:00:00 00:00:00 Nahun Streeter MD: [address], [facility] [place], [place] [facility] [address] [facility] ac , Ph. h (979) Program 2019-11-22 2019-11-22 Telephone [facility] 1.2.354.115 [id number] 00:00:00 00:00:00 Shefali Haughton 350.1.13.10 [place] 4.2.7.2.686 Professio [phone] [address] 2019-11-22 2019-11-22 [facility] [place] 1.2.704.560 [id number] [facility] 00:00:00 00:00:00 Shefali Haughton 350.1.13.10 [place] [phone] Ma dic[address] 2019-11-21 2019-11-21 Office [facility] 1.2.840.114 [id number] 10:05:29 10:53:34 Visit Shefali Marteton 350.1.13.10 [place] 4.2.7.2.686 Professio [phone] [address] 2019-11-21 2019-11-21 Office [facility] 1.2.840.114 [id number] Univers 10:05:29 10:53:34 Visit Shefali Haughton 350.1.13.10 [place] [phone] Ma dic[address] 2019-11-21 2019-11-21 Outpatient [facility] [id number] Univers 10:40:00 10:40:00 SHEFALI [id number] ity o f [facility] 2019-11-21 2019-11-21 Outpatient R ASHISH [facility] [id number] Univers 10:40:00 10:40:00 SHEFALI coleman f [facility] 2019-11-18 2019-11-18 Orders Doctor ROSAMARIA 1.2.840.114 [id number] 00:00:00 00:00:00 Only Unassigned, LAURYN 350.1.13.10 [place] [facility] 4.2.7.2.686 [id number] 009 2019-11-18 2019-11-18 Orders Doctor ROSAMARIA 1.2.840.114 [id number] Univers 00:00:00 00:00:00 Only Unassigned, LAURYN 350.1.13.10 ity of [place] [facility] 4.2.7.2.686 Kishore as [phone] [address] 2019-08-12 2019-08-12 Outpatient Tonie-Mbayo VFP VFP [address] [place] [address] 11:11:00 11:11:00 _A_AH 93746 Family Practic e 2019-07-20 2019-07-20 Outpatient Tonie-Mbayo VFP VFP [address] 09:28:00 09:28:00 _A_AH 12539 Family Practic e 2019-07-05 2019-07-05 Outpatient Tonie-Mbayo VFP P [address] [place] [address] 09:42:00 09:42:00 _A_AH 39206 Family Practic e 2019-07-05 2019-07-05 Yaa P [place] - [id number] V illage 00:00:00 00:00:00 Tonie-Mbay [facility] Fam jonathon coleman 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 2019-06-22 2019-06-22 Outpatient Tonie-Mbayo VFP VFP [address] [place] [address] 10:56:00 10:56:00 _A_AH 15138 Family Practic e 2019-04-21 2019-04-21 Office Laura [facility] 1.2.840.114 [id number] Univers 08:09:30 08:24:30 Visit [facility] 350.1.13.10 it y of Surgical 4.2.7.2.686 Kishore as Specialti [phone] Ma dical es 198 [facility] 2019-04-21 2019-04-21 Orders Doctor ROSAMARIA 1.2.840.114 [id number] Univers 00:00:00 00:00:00 Only Unassigned, LAURYN 350.1.13.10 ity of [place] [facility] 4.2.7.2.686 Kishore as [phone] [facility] [address] [place] 2019-02-25 2019-03-22 Outpatient 3 DENIS DUMONT OOS 1207 21898- Yazidi 14:12:00 15:28:00 RUFINO [id number] Hospi ta l ([facility]) Results Test Description Test Time Test Comments Results Result Comments Source PULMONARY FUNCTION TEST (RESULTS) 2021-02-19 14:30:22 Test Item Value Reference Range Interpretation Comme nts FVC Actual (test code = 3994) 5.36 L FEV1 Actual (test code = 3993) 3.30 L FEV1/FVC Actual (test code = 3995) 62 % [facility]3 VW [id number] 18:08:26 Posttraumatic soft tissue swelling with no [...] withminimal dorsal ulnar subluxation with ulnar minus variance.[facility] [id number] 11:05:00 Test Item Value Reference Range Interpretation [...] 14.6 G/DL 12.0-18.0 Notifi ed Nurse/MD of ISTATHGB) results outside of Reference Range s ISTANGAP (test code = 12 MMOL/L Notifi ed Nurse/MD of ISTANGAP) results outside of Reference Range s BMP, BASIC METABOLIC [id number] 15:07:00 Test Item Value Reference Range Interpretation [...] glucose = GLUCOSE) normal <100 MG/ DL- [employer] recommendation* * CALCIUM (test code 9.4 MG/DL 8.4-10.2 = CABLOOD) GFR (test code = 95 A GFR of >9 0 GFR) mL/min/1.73m2 mL/min/1.73m2 is considered norm al. [id number] 15:07:00 Test Item Value Reference Range Interpretation Comments MG (test code = MG) 2.4 mg/dL 1.6-2.3 H PROTHROMBIN TIME WITH [id number] 14:02:00 Test Item Value Reference Range Interpretation Comments PROTHROMBIN TIME 13.7 SECONDS 12.0-14.6 INR Usual R randal = 2 (test code = PT) to 3 for pr evention of deep vein thrombosis (DVT ) INR (test code = INR) 1.1 [id number] 13:45:00 Test Item Value Reference Range Interpretation [...] K/UL 1.2-7.2 = NEUT) CHEST XR 2 [id number] 12:25:[address] [address]MNFSOQJMWF IMAGING REPORTPatient Name: Yamil TABARES of Service: [id number]: 48 Sex: M Order #: [id number] [facility] 1970 X-Ray Number: [id number] Record Number: [id number] Hospital Number: [id number] Physician: NELIDA WAITE -Ordering Physician: NELIDA WAITECHEST.08/24/2018 [...] 12:23:24PET, CARDIAC PERFUSION MULTIPLE STUDIES, REST AND [id number] 15:30:00Reason for exam:- >chest pain, multiple risk factors for CADFINAL REPORT PROCEDURE: Rest/Stress MYOCARDIAL PERFUSION PET with regadenoson\\XA9\\ CPT CODE: 79432 INDICATION: Chest pain, multiple risk factors for CAD HISTORY: Cardiac risk factors: Diabetes, hypertension, tobacco. Other cardiovascular history: Previous CA. Recent cardiac symptoms: Chest pain. PROTOCOL: Limited low-dose CT imaging was performed for attenuation correction. 40.0 mCi of Rb-82 chloride was injected iv at rest, and gated PET (positron emission tomography) images were obtained. Subsequently, 40.0 mCi of Rb-82 chloride was injected iv at expected peak pharmacologic effect, and gated PET images were obtained. [facility]IN[facility] STRESS [facility]: Pharmacologic stress was by 10-second [...] Normal extracardiac tracer distribution. 6. No previous [facility] study for comparison. NONINVASIVE RISK STRATIFICATION: The above findings are considered low risk (<1% annual mortality rate) based on the following criterion:- Normal or small myocardial perfusion defectat rest or with stress(JACC. 2012;59(9):857-81.) Signed: Bekah Cota [facility] Verified Date/Time:11/27/2017 15:30:18 Reading Location: [address] Reading Room HEMOGLOBIN [id number] 09:48:00 Test Item Value Reference Range Interpretation Comments HEMOGLOBIN A1C (BEAKER) (test code = 4.9 % 4.3-6.1 368) BASIC METABOLIC [id number] 06:47:00 Test Item Value Reference Range Interpretation [...] DATA TO CALCULA TE ESTIMATED GFR. TROPONIN [id number] 06:44:00 Test Item Value Reference Range Interpretation [...] failure, acidosis, acute neurological disease, and persistent tachyarrhythmia.[id number] 06:43:00 Test Item Value Reference Range Interpretation Comments MAGNESIUM (BEAKER) (test code = 2.7 mg/dL 1.6-2.6 H 627) CBC W/PLT COUNT & AUTO [id number] 06:09:00 Test Item Value Reference Range Interpretation [...] PERCENT (BEAKER) (test code = 2801) TROPONIN [id number] 01:49:00 Test Item Value Reference Range Interpretation [...] acute neurological disease, and persistent tachyarrhythmia.BASIC METABOLIC [id number] 01:49:00 Test Item Value Reference Range Interpretation [...] m DATA TO CALCULA TE ESTIMATED GFR. [id number] 01:42:00 Test Item Value Reference Range Interpretation Comments MAGNESIUM (BEAKER) (test code = 2.2 mg/dL 1.6-2.6 627) LIPID [id number] 01:42:00 Test Item Value Reference Range Interpretation [...] 130-159 High 160-189 Very High >=190HEPATIC FUNCTION [id number] 01:42:00 Test Item Value Reference Range Interpretation [...] 6-55 347) CBC W/PLT COUNT & AUTO [id number] 00:59:00 Test Item Value Reference Range Interpretation [...] % 0-1 PERCENT (BEAKER) (test code = 7828)
[2021-05-06] MEDS ORDERED: HYDROCODONE/APAP 10/325 TAB ONE (19:05)
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
--- NOTE | 2021-05-06 19:56 | RAD REPORT ---
EXAM DESCRIPTION: RAD - Elbow Right 3 View - 05/06/2021 7:35 pm CLINICAL HISTORY: PAIN COMPARISON: No comparisons FINDINGS: No acute fracture or dislocation seen.
[2021-05-06 20:25] VITALS: BP 124/92; TEMP 98.9; O2SAT 100
== END 2021-05-06 19:29 | disposition home or self-care (01) ==
LOC: ER 17:50
DX: S53.491A Other sprain of right elbow, initial encounter (principal); W18.30XA Fall on same level, unspecified, initial encounter; Y93.K1 Activity, walking an animal; I10 Essential (primary) hypertension; F17.220 Nicotine dependence, chewing tobacco, uncomplicated; Z79.82 Long term (current) use of aspirin; Z91.018 Allergy to other foods; Z91.040 Latex allergy status; Z91.048 Other nonmedicinal substance allergy status
CPT/HCPCS: 99283

== ENCOUNTER 2021-09-24 16:38 | Inpatient (IN) | payer OTHER ==
--- NOTE | 2021-09-24 17:11 | RAD REPORT ---
EXAM DESCRIPTION: RAD - Chest Single View - 09/24/2021 5:00 pm CLINICAL HISTORY: CHEST PAIN Chest pain. COMPARISON: Chest Single View dated 10/07/2019; Chest Single View dated 04/22/2019 FINDINGS: Portable technique limits examination quality. The lungs are grossly clear. The heart is normal in size. No displaced fractures. IMPRESSION: No acute intrathoracic process suspected.
[2021-09-24 17:37] LABS: Urine Blood Negative (Negative); Urine Glucose Negative (Negative); Urine Protein Negative (Negative); Urine Specific Gravity 1.025 (1.005-1.030)
[2021-09-24 17:44] LABS: Hematocrit 44.6 % (39.6-49.0); Lymphocytes % 30.1 % (15.3-44.8); MCV 90.5 fL (80-100); MPV 8.7 fL (7.6-11.3); RBC Red Blood Cell Count 4.93 M/uL (4.33-5.43)
[2021-09-24] MEDS ORDERED: ASPIRIN 81 MG CHEWABLE TABLET ONE (17:56)
[2021-09-24 18:02] LABS: Magnesium 2.7 mg/dL (1.8-2.4); Potassium 3.6 mmol/L (3.5-5.1); Troponin High Sensitivity 7.6 pg/mL (<58.9)
[2021-09-24] MEDS ORDERED: MORPHINE 4 MG/ML SYR ONE (18:29)
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
[2021-09-24] MEDS ORDERED: ONDANSETRON 4 MG/2 ML VIAL IV PRN (20:49)
[2021-09-24 20:56] VITALS: BMI 20.5
--- NOTE | 2021-09-24 20:58 | P.HP ---
Certification for Inpatient Patient admitted to: Observation With expected LOS: <2 Midnights Patient will require the following post-hospital care: None Practitioner: I am a practitioner with admitting privileges, knowledge of patient current condition, hospital course, and medical plan of care. Services: Services provided to patient in accordance with Admission requirements found in Title 42 Section 412.3 of the Code of Federal Regulations Patient History Date of Service: 09/24/21 Reason for admission: Chest pain History of Present Illness: 51-year-old male history of hypertension, COPD, bipolar disorder/anxiety/depression presents to the emergency department for chest pain. Patient reports has been having intermittent chest pain over the course of the last few weeks, he reports last week he was seen and evaluated by [facility] and transferred to [facility] for possible heart catheterization, he was unhappy with the care he received there is a procedure leave AGAINST MEDICAL ADVICE before receiving heart catheterization. He was referred here from his primary care doctor as he was still complaining of chest pain. He describes in termittent chest pain sharp/stabbing/pressure radiating to the left arm. He has never had a previous heart catheterization his labs initially were unremarkable initial high-sensitivity opponent was negative chest x-ray unremarkable EKG without ST elevations ED provider wishes to admit under observation for ACS rule out. Allergies No Known Allergies Allergy (Unverified 12/07/16 13:26) - Past Medical/Surgical History -: Hypertension -: COPD -: BPD/anxiety/depression -: Appendectomy Psychosocial/ Personal History: Patient lives at home with his family - Family History Mother -: Heart disease Father -: Heart disease, Cancer - Social History Smoking Status: Current some day smoker Counseled patient to stop smoking for: less than 10 minutes Smoking therapy provided: No (Patient declined) Alcohol use: No CD- Drugs: No Caffeine use: Yes Place of Residence: Home Review of Systems 10-point ROS is otherwise unremarkable Respiratory: Shortness of Breath Cardiovascular: Chest Pain Physical Examination - Physical Exam General: Alert, In no apparent distress, Oriented x3 HEENT: Atraumatic, PERRLA, Mucous membr. moist/pink, EOMI, Sclerae nonicteric Neck: Supple, 2+ carotid pulse no bruit, No LAD, Without JVD or thyroid abnormality Respiratory: Clear to auscultation bilaterally, Normal air movement Cardiovascular: Regular rate/rhythm, Normal S1 S2 Gastrointestinal: Normal bowel sounds, No tenderness Musculoskeletal: No tenderness Integumentary: No rashes Neurological: Normal speech, Normal strength at 5/5 x4 extr, Normal tone, Normal affect - Studies Laboratory Data (last 24 hrs) 09/24/21 17:30: WBC 9.8, Hgb 14.9, Hct 44.6, Plt Count 266 09/24/21 17:30: Sodium 136, Potassium 3.6, BUN 16, Creatinine 1.00, Glucose 76, Magnesium 2.7 H D Assessment and Plan - Plan Assessment: Chest pain rule out ACS Hypertension COPD Anxiety/depression/bipolar disorder Plan: Chest pain rule out ACS: Monitor on telemetry, trend troponins, cardiology consulted. Continue aspirin, statin, patient's antihypertensive agents once confirmed. As needed morphine, he reports severe headaches with nitroglycerin and does not take it. Hypertension: Continue home medications once verified. COPD: As needed inhalers Anxiety/depression/bipolar disorder: Continue home medications once verified. DVT PPX: Lovenox Code status: Full Discharge Plan: Home Plan to discharge in: 24 Hours - Advance Directives Does patient have a Living Will: No Does patient have a Durable POA for Healthcare: No - Code Status/Comfort Care Code Status Assessed: Yes (Full code) Critical Care: No Time Spent Managing Pts Care (In Minutes): 70
[2021-09-24] MEDS: ATORVASTATIN 40 MG TAB PO SCH (21:21)
[2021-09-24] MEDS: MORPHINE 2 MG/ML SYR IV PRN (21:21)
[2021-09-25 03:52] LABS: Absolute Lymphocytes (CBC) 3.1 K/uL (0.7-4.9); Hematocrit 41.5 % (39.6-49.0); Lymphocytes % 40.1 % (15.3-44.8); MCV 89.5 fL (80-100); MPV 8.4 fL (7.6-11.3); RBC Red Blood Cell Count 4.63 M/uL (4.33-5.43)
[2021-09-25] MEDS: MORPHINE 2 MG/ML SYR IV PRN ×4 (03:58→20:10)
[2021-09-25 04:15] LABS: Albumin 3.3 g/dL (3.4-5.0); Bilirubin Total 0.3 mg/dL (0.2-1.0); Potassium 3.4 mmol/L (3.5-5.1); Protein, Total 6.6 g/dL (6.4-8.2); Troponin High Sensitivity 12.3 pg/mL (<58.9)
[2021-09-25] MEDS ORDERED: ALBUTEROL INHALER 60 PUFF/8 GM IH PRN (04:27)
[2021-09-25] MEDS ORDERED: clonazePAM 1 MG TAB PO PRN (04:27)
[2021-09-25] MEDS: TIOTROPIUM 5 SPRAYS/INHALER IH SCH (08:42)
[2021-09-25] MEDS ORDERED: PROPRANOLOL HCL 10 MG TAB PO SCH (09:00)
[2021-09-25] MEDS ORDERED: ASPIRIN EC 81 MG TAB PO SCH (09:00)
[2021-09-25] MEDS ORDERED: ENOXAPARIN 40 MG/0.4 ML SQ SCH (09:00)
[2021-09-25] MEDS ORDERED: POTASSIUM CL SA 10 MEQ TAB PO ONE (09:00)
--- NOTE | 2021-09-25 11:08 | EKG ---
Test Date: 2021-09-24 Test Time: 16:53:33 Outsole Tacker: GONZÁLEZ MEASUREMENT RESULTS: Intervals: Rate: 84 ME: 184 QRSD: 84 QT: 364 QTc: 430 [place]: P: 79 ME: 184 QRS: 90 T: 74 INTERPRETIVE STATEMENTS: Sinus rhythm with occasional premature ventricular complexes Rightward axis Septal infarct, age undetermined Abnormal ECG Compared to ECG 10/07/2019 19:35:04 Ventricular premature complex(es) now present Myocardial infarct finding now present Electronically Signed On 09-25-21 11:06:26 CDT by Allen Brock
--- NOTE | 2021-09-25 12:46 | ECHO ---
HEIGHT: 5 ft 10 in WEIGHT: 149 lb 14.629 oz DATE OF STUDY: 09/25/[address]: Babatunde Kumar 2-DIMENSIONAL: YES M.MODE: YES DOPPLER: YES COLOR FLOW: YES TDS: NO PORTABLE: YES DEFINITY: NO BUBBLE STUDY: NO DIAGNOSIS: CHEST PAIN, RULE OUT REGIONAL WALL MOTION ABNORMALITIES CARDIAC HISTORY: CATHERIZATION:YES SURGERY: NO PROSTHETIC VALVE: NO PACEMAKER: NO MEASUREMENTS (cm) DIASTOLIC (NORMALS) SYSTOLIC (NORMALS) IVSd 1.1 (0.6-1.2) LA Diam 2.9 (1.9-4.0) LVEF 62% LVIDd 3.9 (3.5-5.7) LVIDs 2.6 (2.0-3.5) %FS 33% LVPWd 1.2 (0.6-1.2) Ao Diam 2.7 (2.0-3.7) 2 DIMENSIONAL ASSESSMENT: RIGHT ATRIUM: NORMAL LEFT ATRIUM: NORMAL RIGHT VENTRICLE: NORMAL LEFT VENTRICLE: NORMAL TRICUSPID VALVE: NORMAL MITRAL VALVE: NORMAL PULMONIC VALVE: NORMAL AORTIC VALVE: NORMAL PERICARDIAL EFFUSION: NONE AORTIC ROOT: NORMAL LEFT VENTRICULAR WALL MOTION: NORMAL DOPPLER/COLOR FLOW: NORMAL COMMENTS: NORMAL LEFT VENTRICULAR SIZE AND FUNCTION. NO WALL MOTION ABNORMALITY. NO EFFUSION. LEFT VENTRICULAR EJECTION FRACTION 62%. TECHNOLOGIST: Renee BAUMANN
--- NOTE | 2021-09-25 17:11 | CON ---
Reason For Consultation: Chest pain. History Of Present Illness: A 51-year-old male with history of hypertension, known coronary artery d isease, status post heart attack in the past. Smoker, quit recently. Presented with chest pain, ret rosternal, pressure-like, radiates to the left upper extremities and intensified with exertion. He a pparently had planned coronary angiogram done elsewhere; however, this was not done for some reason. Past Medical History: Hypertension, COPD, large prostate, anxiety, and coronary artery disease. Medications: Refer to reconciliation sheet for detailed list. Allergies: VENLAFAXINE. Family History: No premature coronary artery disease or cancer. Social History: Ex-smoker, quit recently. Review of Systems: All systems reviewed and they were negative except for what mentioned in HPI. Physical Examination: Vital Signs: His temperature is 97.4, pulse 56, breathing 16, blood pressure 112/58, saturating 96% on room air. General: Pleasant, middle-aged male, in no apparent distress. Head and Neck: Pupils are equal, reactive to light. Intact eye movements. No JVD. No cervical lym phadenopathy. Neck is supple. Thyroid is not enlarged. Lungs: Clear to auscultation bilaterally. No rhonchi, wheezing, or crackles. No accessory muscle u se. Heart: Regular rate and rhythm. No extra sounds. Abdomen: Soft, nontender. Bowel sounds positive. No organomegaly. No masses or hernia. No rigidi ty or rebound. Extremities: No edema, clubbing, or cyanosis. Intact pulses. Skin: No rash. Neurologic: Alert, awake, oriented x3. No acute focal deficits appreciated. Investigations: Hemoglobin is 14, white blood cell count is 7.8. Troponin is negative and his creat inine is 0.89. Assessment And Recommendations: 1.Chest pain, typical, suggestive of unstable angina. Keep him n.p.o. past midnight to plan for cor onary angiogram tomorrow morning. Continue on aspirin, high-dose statin, and beta-mena. 2.Hypertension. Blood pressure is controlled. 3.Dyslipidemia. Continue statin. SR/MODL Voice ID: [id number] Report ID: [id number]
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
[2021-09-25] MEDS: carvediloL 3.125 MG TAB PO SCH (18:12)
[2021-09-25 18:30] LABS: Protime INR 1.04
[2021-09-25] MEDS: ATORVASTATIN 40 MG TAB PO SCH (20:10)
[2021-09-26] MEDS: MORPHINE 2 MG/ML SYR IV PRN ×4 (00:09→20:37)
[2021-09-26 05:53] LABS: Absolute Lymphocytes (CBC) 2.6 K/uL (0.7-4.9); Hematocrit 40.7 % (39.6-49.0); Lymphocytes % 33.7 % (15.3-44.8); MCV 91.4 fL (80-100); MPV 8.8 fL (7.6-11.3); RBC Red Blood Cell Count 4.45 M/uL (4.33-5.43)
[2021-09-26] MEDS: carvediloL 3.125 MG TAB PO SCH (06:00)
[2021-09-26 06:14] LABS: Albumin 2.9 g/dL (3.4-5.0); Bilirubin Total 0.2 mg/dL (0.2-1.0); Potassium 4.1 mmol/L (3.5-5.1); Protein, Total 6.1 g/dL (6.4-8.2)
[2021-09-26] MEDS ORDERED: NA CHLORIDE 0.9% 250 ML IV ONE (08:00)
[2021-09-26] MEDS: TIOTROPIUM 5 SPRAYS/INHALER IH SCH (08:20)
[2021-09-26] MEDS ORDERED: ACETAMINOPHEN 325 MG TABLET PO PRN (14:03)
--- NOTE | 2021-09-26 14:09 | P.PN ---
Subjective Date of Service: 09/26/21 Chief Complaint: Chest pain No acute events overnight. He continues to have intermittent left sided chest pain. Plan was for cardiac catheterization today, but this was held due to soft blood pressures. Review of Systems General: Unremarkable Eyes: Unremarkable ENT: Unremarkable Respiratory: Unremarkable Cardiovascular: Chest Pain Gastrointestinal: Unremarkable Genitourinary: Unremarkable Musculoskeletal: Unremarkable Integumentary: Unremarkable Neurological: Unremarkable Physical Examination - Vital Signs Temperature: 97.0 F Blood Pressure: 97/53 Pulse: 51 Respirations: 16 Pulse Ox (%): 99 - Physical Exam General: Alert, In no apparent distress, Oriented x3 HEENT: Atraumatic, Mucous membr. moist/pink Neck: Supple, Without JVD or thyroid abnormality Respiratory: Clear to auscultation bilaterally, Normal air movement Cardiovascular: No edema, Regular rate/rhythm, Normal S1 S2, No gallops, No rubs, No murmurs Gastrointestinal: Normal bowel sounds, Soft and benign, No tenderness, No rebound, No guarding Musculoskeletal: No clubbing Integumentary: No rashes Neurological: Normal speech, Normal affect - Studies Medications List Reviewed: Yes Assessment And Plan - Plan # Suspected Unstable Angina # Hypertension # Hyperlipidemia - Evaluation thus far: - EKG: sinus rhythm with PVCs - Serial troponin: 7.6 -> 13.0 -> 12.3 -> 11.4 - Transthoracic echocardiogram: : "Normal left ventricular size and function. No wall motion abnormality. No effusion. Left ventricular ejection fraction 62%." - Chest x-ray = "no acute intrathoracic process suspected" - D-dimer = 309 - Management plan: - Consult Cardiology and spoke with Dr. Brock recommendations appreciated - Plan was for cardiac catheterization this morning - This was discontinued due to soft blood pressures 90s/50s - Held home carvedilol - Will discuss enoxaparin vs heparin - Continue aspirin, atorvastatin If cardiac ischemia confirmed, plan to start BARBIE-inhibitor/ARB if blood pressure allows # Chronic Obstructive Pulmonary Disease without exacerbation - Continue home inhalers # Bipolar Disorder # Anxiety # Depression - Continue home clonazepam - Hold home propanolol and start carvedilol Babatunde Kumar MD Discharge Plan: Home Plan to discharge in: 24 Hours - Code Status/Comfort Care Code Status Assessed: Yes Code Status: Full Code Critical Care: No
[2021-09-26] MEDS: ATORVASTATIN 40 MG TAB PO SCH (20:02)
[2021-09-26] MEDS ORDERED: FENTANYL CITR 100 MCG/2 ML IV ONE (22:46)
[2021-09-27 04:40] LABS: Absolute Lymphocytes (CBC) 2.7 K/uL (0.7-4.9); Hematocrit 39.8 % (39.6-49.0); Lymphocytes % 38.1 % (15.3-44.8); MCV 90.6 fL (80-100); MPV 9.1 fL (7.6-11.3); RBC Red Blood Cell Count 4.39 M/uL (4.33-5.43)
[2021-09-27 04:54] LABS: Albumin 2.8 g/dL (3.4-5.0); Bilirubin Total 0.2 mg/dL (0.2-1.0); Protein, Total 5.9 g/dL (6.4-8.2)
[2021-09-27] MEDS: TIOTROPIUM 5 SPRAYS/INHALER IH SCH (08:27)
[2021-09-27] MEDS: MORPHINE 2 MG/ML SYR IV PRN (08:27)
[2021-09-27 08:54] VITALS: TEMP 97.4
[2021-09-27] MEDS ORDERED: LIDOCAINE 1% 20 ML MDV ONE (10:49)
[2021-09-27] MEDS ORDERED: FENTANYL CITR 100 MCG/2 ML ONE (10:49)
[2021-09-27] MEDS ORDERED: HEPA 1000U/500MLS 2,000 UNIT/1,000 ML BAG IV ONE ×2 (10:49→13:05)
[2021-09-27] MEDS ORDERED: MIDAZOLAM HCL 2 MG/2 ML INJ ONE (10:50)
[2021-09-27] MEDS ORDERED: HEPARIN 10,000 UNIT/10 ML VIAL IV ONE (10:50)
[2021-09-27] MEDS ORDERED: VERAPAMIL HCL 10 MG/4 ML VIAL IV ONE (10:50)
[2021-09-27] MEDS ORDERED: ATROPINE SULF 1 MG/10 ML SYR IV ONE (10:50)
[2021-09-27] MEDS ORDERED: NITROGLYCERIN 100 MCG/ML SYR (for cath lab use only) IV ONE (10:50)
[2021-09-27] MEDS ORDERED: NA CHLORIDE 0.9% 500 ML ONE (10:51)
[2021-09-27] MEDS ORDERED: HEPARIN 5000 UNIT/ML 1 ML VIAL ONE (10:51)
[2021-09-27 14:36] VITALS: O2SAT 100
--- NOTE | 2021-09-27 14:49 | P.DS ---
Admission Date: 09/26/21 Discharge Date: 09/27/21 Disposition: ROUTINE DISCHARGE Discharge Condition: GOOD Reason for Admission: Chest pain Consultations: 1. Cardiology Procedures: - 09/27/2021: Cardiac Catheterization Hospital Course: DIAGNOSES: # Intermittent Chest Pain - concern for Unstable Angina # Hypertension # Hyperlipidemia # Bipolar Disorder # Anxiety # Depression HOSPITAL COURSE: Mr. Jose Tabares is a 51 year old male with a past medical history significant for hypertension, hyperlipidemia, bipolar disorder, anxiety, and depression who was admitted to the [facility] on 09/24/2021 for chest pain. Upon further evaluation, there was concern for unstable angina. Cardiac evaluation included an EKG with sinus rhythm and PVCs, a serial HS troponin trend (7.6 -> 13.0 -> 12.3 -> 11.4), and a transthoracic echocardiogram with "normal left ventricular size and function. No wall motion abnormality. No effusion. Left ventricular ejection fraction 62%." He also had a chest x-ray revealing "no acute intrathoracic process suspected" and a d-dimer = 309. Cardiology was consulted and Dr. Brock evaluated him. He underwent a cardiac catheterization today. The catheterization report is currently pending, but per discussion with Dr. Brock, there were no obstructive lesions and no stent was required. He has cleared him for discharge with a outpatient follow-up appointment. On 09/27/2021, he was seen on rounds and deemed medically stable for discharge. He was discharged with instructions to schedule follow-up appointments with his PCP in 3-[address] Brock in 1-2 weeks. He is to continue his current home aspirin and statin. Ideally, would like to start a beta-mena and BARBIE- inhibitor/ARB, but we are unable to start given his soft blood pressures. He and his family members were given the opportunity to ask questions and reported no further questions. Furthermore, all questions were answered to the best of my ability. Today, I personally spent 35 minutes with him and his family, of which greater than 50% of the time was spent in patient education, counseling, and coordination of care as described above. Vital Signs/Physical Exam: Temp Pulse Resp BP Pulse Ox 97.4 F 56 14 114/70 96 09/27/21 08:00 09/27/21 14:30 09/27/21 14:30 09/27/21 14:30 09/27/21 08:27 General: Alert, In no apparent distress, Oriented x3 HEENT: Atraumatic, Mucous membr. moist/pink Neck: Supple, Without JVD or thyroid abnormality Respiratory: Clear to auscultation bilaterally, Normal air movement Cardiovascular: No edema, Regular rate/rhythm, Normal S1 S2, No gallops, No rubs, No murmurs Gastrointestinal: Normal bowel sounds, Soft and benign, No tenderness, No rebound, No guarding Musculoskeletal: No clubbing, No swelling Integumentary: No rashes Neurological: Normal speech, Normal affect Laboratory Data at Discharge: WBC 7.1 K/uL (4.3-10.9) 09/27/21 04:12 Hgb 13.4 g/dL (13.6-17.9) L 09/27/21 04:12 Hct 39.8 % (39.6-49.0) 09/27/21 04:12 Plt Count 202 K/uL (152-406) 09/27/21 04:12 PT 11.4 SECONDS (9.5-12.5) 09/25/21 17:43 INR 1.04 09/25/21 17:43 APTT 36.2 SECONDS (24.3-36.9) 09/25/21 17:43 Sodium 140 mmol/L (136-145) 09/27/21 04:12 Potassium 4.0 mmol/L (3.5-5.1) 09/27/21 04:12 BUN 15 mg/dL (7-18) 09/27/21 04:12 Creatinine 0.80 mg/dL (0.55-1.3) 09/27/21 04:12 Glucose 101 mg/dL (74-106) 09/27/21 04:12 Magnesium 2.7 mg/dL (1.8-2.4) H D 09/24/21 17:30 Total Bilirubin 0.2 mg/dL (0.2-1.0) 09/27/21 04:12 AST 8 U/L (15-37) L 09/27/21 04:12 ALT 14 U/L (12-78) 09/27/21 04:12 Alkaline Phosphatase 105 U/L (45-117) 09/27/21 04:12 Triglycerides 124 mg/dL (<150) 09/25/21 03:06 Cholesterol 173 mg/dL (<200) 09/25/21 03:06 HDL Cholesterol 29 mg/dL (40-60) L 09/25/21 03:06 Cholesterol/HDL Ratio 5.97 09/25/21 03:06 Home Medications: Albuterol Inhaler [Ventolin Inhaler*] 2 puff IH Q6H PRN 09/24/21 Cholecalciferol (Vitamin D3) [Vitamin D3] 50,000 unit PO EVERY 7TH DAY 09/24/21 Pravastatin [Pravachol*] 40 mg PO BEDTIME 09/24/21 Propranolol [Inderal*] 10 mg PO BID 09/24/21 Tiotropium [place] [Spiriva] 1 puff IH DAILY 09/24/21 clonazePAM [Clonazepam] 1 mg PO TID PRN 09/24/21 Physician Discharge Instructions: 1. Please schedule follow-up with your PCP in 3 to 5 days 2. Please schedule follow-up with Cardiology (Dr. Brock) in 5 to 7 days Followup: NONE,NONE [Primary Care Provider] - Allen Brock MD [ACTIVE - CAN ADMIT] -
[2021-09-27 15:33] VITALS: BP 103/90
--- NOTE | 2021-09-27 19:49 | PN ---
Date of Progress Note: 09/27/2021 Subjective: Seen by bedside, status post coronary angiogram. Today, his coronary arteries are clean . Does not have any coronary artery disease. Review of Systems: Still periodic chest pain. No shortness of breath, orthopnea, or cough. No nausea, vomiting, or cecilia rrhea. All other systems reviewed are negative. Physical Examination: Vital Signs: Reviewed. Head and Neck: Pupils are equal, reactive to light. Intact eye movements. No JVD. No cervical lym phadenopathy. Neck is supple. Thyroid is not enlarged. Lungs: Clear to auscultation bilaterally. No rhonchi, wheezing, or crackles. No accessory muscle u se. Heart: Regular rate and rhythm. No extra sounds. Abdomen: Soft, nontender. Bowel sounds positive. No organomegaly. No masses or hernia. No rigidi ty or rebound. Extremities: No edema, clubbing, or cyanosis. Intact pulses. Skin: No rash. Neurologic: Alert, awake, oriented x3. No acute focal deficits appreciated. Investigations: Hemoglobin 13.4, white blood count 7.1, creatinine 0.80. Assessment And Recommendation: 1.Chest pain. This is noncardiac chest pain. His coronary angiogram is completely normal. Patient was reassured and discussed with the primary hospitalist to search for other causes of chest pain. From Cardiology standpoint, this patient can be released to follow up as an outpatient. 2.Hypertension. Blood pressure is controlled. SR/MODL Voice ID: [id number] Report ID: [id number]
--- NOTE | 2021-09-27 23:04 | OP ---
Date of Procedure: 09/26/2021 Surgeon: EBOYN POE Procedures Performed: 1.Selective coronary angiogram. 2.Left heart catheterization. Indication: Unstable angina. Access: Right radial artery 6-Tanzanian, closed with TR band. Complications: None. Bleeding: Less than 10 mL. Anesthesia: Total sedation time was 20 minutes. Used fentanyl and versed. Description Of Procedure: After risks, benefits, and alternatives were explained, patient agreed to the procedure and signed informed consent. Patient was [facility] to the cardiac [facility], prepped and draped in usual sterile fashion. Then, I accessed right radial artery using a pedi atric micropuncture kit, placed 6-Tanzanian slender sheath, and took 5-Tanzanian Cameron 4.0 catheter in the aortic root, engaged left main, right coronary artery, took standard views and the catheter was pushe d again over the wire into the LV. LVEDP was measured and pullback did not record any gradient. Findings: 1.Left main: Large and normal. 2.LAD: Moderate-sized and normal. Normal diagonal branches. 3.Left circumflex: Moderate vessel with no disease. Normal OM branches. 4.RCA: Very large and dominant and normal. 5.Normal LVEDP at 10-12 mmHg. Conclusion: 1.Normal coronary arteries. 2.Normal LVEDP. Recommendations: Search for other causes of chest pain. SR/MODL Voice ID: [id number] Report ID: [id number]
--- OUTSIDE RECORDS SUMMARY | 2021-10-09 14:03 | XMS REPORT | Continuity of Care Document ---
:1970 Author Organization [facility] t Address [address] [place] [address] Care Team Providers Name Role Phone VINCE Primary Care Physician Unavailable ALEX Attending Clinician Unavailable ALEX Attending Clinician Unavailable Ashish CIFUENTES Attending Clinician Deirdre STALEY, L Attending Clinician Unavailable RIP BOSWELL Attending Clinician Unavailable Ajay CIFUENTES Attending Clinician Shanice CIFUENTES Attending Clinician Oseas CIFUENTES Attending Clinician Rip Weber Attending Clinician Doctor Unassigned, Name Attending Clinician Unavailable JAISON Attending Clinician Unavailable Tonie-Alyayo_A_AH Attending Clinician Unavailable Nnamdi Cavazos DO Attending Clinician Jamison POWERS S Attending Clinician LEAH Attending Clinician Unavailable JULIA Attending Clinician Unavailable LAURA MULLEN Attending Clinician Unavailable RIP BOSWELL Admitting Clinician Unavailable Rip Weber Admitting Clinician JAISON Admitting Clinician Unavailable Tonie-Alyayo_A_AH Admitting Clinician Unavailable LEAH Admitting Clinician Unavailable JULIA Admitting Clinician Unavailable LAURA MULLEN Admitting Clinician Unavailable Payers Payer Name Policy Type Policy Number Effective Date Expiration Date Radha payne [facility]/[facility] DUAL [id number] 2021 COMP HMO D SNP 00:00:00 MEDICAID [facility] [id number] 2019 00:00:00 WELLCARE [id number] 2019 HEALTHPLANS 00:00:00 (MEDICARE REPLACEMENT HMO) [place] [id number] [place]MEDICAID[place] WELLCARE OF [facility] [id number] 2019 [place] (MEDICARE 00:00:00 REPLACEMENT/ADVANTA GE - HMO) 2 M [id number] 2018 00:00:00 Problems Condition Condition Condition Status Onset Resolution Last Treating Co mments Source Name Details Category Date Date Treatment Clinician Date Family Family Disease Active [facility] history of history of 09-20 [place] of [place] CAD [place] [facility] Other Other Disease Active Univers hyperlipid hyperlipid 09-20 it y of emia emia 00:00: [place] 00 Medical Branch Primary Primary Disease Active Overview: Univ ers hypertensi hypertensi 6-23 Formattin ity of on on 00:00: g of this [place] 00 note Medical might be Branch different from the original. Added automatic ally from request for surgery [id number] Chest Chest Disease Active Overview: Univer s pain, pain, 6-23 Formattin ity of unspecifie unspecifie 00:00: g of this [place] d type d type 00 note Medical might be Branch different from the original. Added automatic ally from request for surgery [id number] NEVAREZ NEVAREZ Disease Active Overview: Univer s (dyspnea (dyspnea 6-23 Formattin ity of on on 00:00: g of this [place] exertion) exertion) 00 note Medi eloy might be Branch different from the original. 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 [place] sclerotic Sclerotic 9-15 da cataract Cataract 00:00: [facility] Total, Total, Problem Active 0 [place] mature Mature 9-15 da senile Senile 00:00: [facility] cataract Cataract 00 [facility] Acute Acute Problem Active 2019-0 [place] conjunctiv Conjunctiv 9-15 da itis itis 00:00: [facility] Essential Essential Problem Active 2020-0 [place] hypertensi Hypertensi 9-15 da on on 00:00: [facility] Chronic Chronic Problem Active 2020-0 [place] obstructiv Obstructiv 9-15 da e lung e Lung 00:00: [facility] disease Disease 00 al [facility] Postoperat Postoperat Problem Active 2020-0 [facility] [place] frank visit frank Visit 9-15 da 00:00: [facility] Pseudophak Pseudophak Problem Active 2020-0 [place] ia of ia of 9-15 da right eye 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 [facility] Program Hyperchole Hyperchole Problem Active 2019-0 [facility] sterolemia sterolemia 4-15 Fa johan 00:00: Practic 00 e Chronic Chronic Problem Active [facility] back pain Back Pain 4-15 Fami ly 00:00: Practic 00 e Anxiety Anxiety Problem Active [place] 4-14 Family 00:00: Practic 00 e Mild Mild Problem Active [facility] chronic Chronic 4-14 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 Obstructiv 00:00: Pr actic e e 00 e pulmonary Pulmonary disease Disease Prediabete Prediabete Problem Active [facility] s s 4-14 Family 00:00: Practic 00 e Allergies, Adverse Reactions, Alerts Allergy Allergy Status Severity Reaction(s) Onset Inactive Treating Comm ents Source Name Type Date Date Clinician VENLAFAX DRUG Active Dizziness Unive rs INE INGREDI 10-17 ity of 00:00: [place] 00 Medical Branch Venlafax Propensi Active Dizziness Uni vers ine ty to 10-17 ity of adverse 00:00: [place] reaction 00 Medical s to Branch drug ADHESIVE DRUG Active Unknown-Cmnt 0 Un bam TAPE-DEEDEE 1-24 ity of ICONES 00:00: [place] 00 Medical Branch LATEX DRUG Active Unknown-Cmnt 0 Univ ers INGREDI 1-24 ity of 00:00: [place] 00 Medical Branch Adhesive Propensi Active Unknown - 0 Uni vers Tape-Deedee ty to See comments 1-24 it y of icones adverse 00:00: [place] reaction 00 Medical s Branch Latex Propensi Active Unknown - 2019-0 Unive rs ty to See comments 1-24 ity of adverse 00:00: [place] reaction 00 Medical s Branch No Known NA Active [facility] Allergie 6-10 Hospita s 10:48: l 08 ([facility]) HYDROCOD Allergy Active High Rash [facility]06 [facility] ADHESIVE Allergy Active [place] TAPE to da substanc [facility] Latex Allergy Active [place] to da substanc [facility] Social History Social Habit Start Date Stop Date Quantity Comments Source History of tobacco Snuff User Univer sity of use [facility] Exposure to 2021-09-09 2021-09-19 Not sure University of SARS-CoV-2 (event) 00:00:00 20:13:00 [facility] Tobacco use and 2021-08-02 2021-08-02 Current user Univers ity of exposure 00:00:00 00:00:00 [facility] Cigarettes smoked 2021-08-02 2021-08-02 Univers ity of current (pack per 00:00:00 00:00:00 [place] ) - Reported [facility] Cigarette 2021-08-02 2021-08-02 University of pack-years 00:00:00 00:00:00 [facility] Sex [birth year] At [birth year] Universit y of 00:00:00 00:00:00 [facility] Smoking Status Start Date Stop Date Source Heavy Tobacco Smoker [place] [facility] [employer] [facility] Former smoker 2021-08-02 00:00:00 2021-08-02 00:00:00 Universi ty of [facility] Medications Ordered Filled Start Stop Current Ordering Indication Dosage Frequency Signature Comments Components Source Medication Medication Date Date Medication? Clinician (SIG) Name Name pravastatin Yes 40mg 40 mg, Univ ers (PRAVACHOL) 7-02 Oral, QHS, it y of tablet 40 02:00: [place] mg 00 on Thu09/20/21 at [facility] 2100, Until Discontinu ed, Routine aspirin 81 Yes 81mg Take 81 mg U nivers mg EC 7-02 by mouth. ity of tablet 00:16: [address] propranoloL Yes 10mg Take 10 mg Univers 10 mg 7-02 by mouth 2 ity of tablet 00:16: (two) [place] 39 times Medical daily. [facility] Cholecalcif Yes 1{tbl} Take 1 Un bam sunday, 7-02 tablet by ity of Vitamin D3, 00:16: mouth. [place] 50 mcg 39 Medical (2,000 Branch unit) capsule clonazePAM Yes 1mg Take 1 mg Un bam 1 mg tablet 702 by mouth 3 it y of 00:16: (three) [place] 39 times Medical daily. [place] aspirin 81 0 Yes 81mg Take 81 mg U nivers mg EC 7-02 by mouth. ity of tablet 00:16: [address] propranoloL Yes 10mg Take 10 mg Univers 10 mg 7-02 by mouth 2 ity of tablet 00:16: (two) [place] 39 times Medical daily. Branch Cholecalcif 2-0 Yes 1{tbl} Take 1 Un bam sunday, 7-02 tablet by ity of Vitamin D3, 00:16: mouth. [place] 50 mcg 39 Medical (2,000 Branch unit) capsule clonazePAM 2022-0 Yes 1mg Take 1 mg Un bam 1 mg tablet 7-02 by mouth 3 it y of 00:16: (three) [place] 39 times Medical daily. Branch aspirin 81 2022-0 Yes 81mg Take 81 mg U nivers mg EC 7-02 by mouth. ity of tablet 00:16: [place] [address] Medical Branch propranoloL 2022-0 Yes 10mg Take 10 mg Univers 10 mg 7-02 by mouth 2 ity of tablet 00:16: (two) [place] 39 times Medical daily. Branch Cholecalcif 2-0 Yes 1{tbl} Take 1 Un bam sunday, 7-02 tablet by ity of Vitamin D3, 00:16: mouth. [place] 50 mcg 39 Medical (2,000 Branch unit) capsule clonazePAM 2022-0 Yes 1mg Take 1 mg Un bam 1 mg tablet 7-02 by mouth 3 it y of 00:16: (three) [place] 39 times Medical daily. Branch aspirin 81 2022-0 Yes 81mg Take 81 mg U nivers mg EC 7-02 by mouth. ity of tablet 00:16: [place] [address] Medical Branch propranoloL 2022-0 Yes 10mg Take 10 mg Univers 10 mg 7-02 by mouth 2 ity of tablet 00:16: (two) [place] 39 times Medical daily. Branch Cholecalcif 2-0 Yes 1{tbl} Take 1 Un bam sunday, 7-02 tablet by ity of Vitamin D3, 00:16: mouth. [place] 50 mcg 39 Medical (2,000 Branch unit) capsule clonazePAM 2022-0 Yes 1mg Take 1 mg Un bam 1 mg tablet 7-02 by mouth 3 it y of 00:16: (three) [place] 39 times Medical daily. Branch aspirin 81 2022-0 Yes 81mg Take 81 mg U nivers mg EC 7-02 by mouth. ity of tablet 00:16: [place] [address] Medical Branch propranoloL 2022-0 Yes 10mg Take 10 mg Univers 10 mg 7-02 by mouth 2 ity of tablet 00:16: (two) [place] 39 times Medical daily. Branch Cholecalcif Yes 1{tbl} Take 1 Un bam sunday, - tablet by ity of Vitamin D3, 00:16: mouth. [place] 50 mcg 39 Medical (2,000 [place] unit) capsule clonazePAM Yes 1mg Take 1 mg Un bam 1 mg tablet 09-21 by mouth 3 it y of 00:16: (three) [place] 39 times Medical daily. Branch heparin Yes 3000U FOR Univers (1,000 7- REBOLUSING ity of unit/mL, 10 23:16: , Starting [place] mL vial) 40 on Thu Medical for 09/20/21 at [facility] Rebolusing 1816, Until Discontinu ed, Routine
Dosing based on aPPT testing parameters (refer to continuous heparin drip order).
heparin Yes 12U/kg/ 12 Univers 25,000 09-20 h Units/kg/h ity of Units/250 23:16: r ?68 kg [place] mL 40 (8.16 Medical (Premixed mL/hr), IV Bran ch Bag) in Infusion, 0.45 % NS TITRATE, Parameters in Admin. Instr., Starting on Thu09/20/21 at 1816
CA UTION - If LMWH given in ER, AVOID bolus and start next dose/drip 12 hrs after ER dosage.&nb sp; M ust program rate using programmab le infusion pump.&nbsp ;&nbsp ;Check with the ordering provider first prior to any administra tion should the patient be on existing/a dditional anticoagul ant therapy. Rang e, Dosing and Testing: &nbs p;FOR [facility], [facility], AND [facility] ONLY &nbs p; - aPTT < 35: & nbsp;Bolus 5000 units, increase rate 300 units/hr&n bsp; - aPTT 35-44:&nbs p; Alberto gemma 3000 units, increase rate 200 units/hr&a mp;nbsp; - aPTT 45-54:&nbs p; In crease rate 100 units/hr&n bsp; - aPTT 55-85:&nbs p; NO CHANGE&nbs p; - aPTT 86-95:&nbs p; De crease rate 100 units/hr&n bsp; - aPTT 96-120:&nb sp; H old 30 minutes, decrease rate 150 units/hr&n bsp; - aPTT > 120: Hold 60 minutes, decrease rate 200 units/hr&n bsp; Check aPTT 6 hours after initiation , then Q6H after every change, aPTT Q12H once therapeuti c levels are reached.&n bsp; &nbs p; __ &n bsp;FOR [facility] ONLY - aPTT < 40: & nbsp;Bolus 5000 units, increase rate 300 units/hr&n bsp; - aPTT 40-49:&nbs p; Alberto gemma 3000 units, increase rate 200 units/hr&n bsp; - aPTT 50-59:&nbs p; In crease rate 100 units/hr&n bsp; - aPTT 60-85:&nbs p; NO CHANGE&nbs p; - aPTT 86-95:&nbs p;&nbs p;Decrease rate 100 units/hr&n bsp; - aPTT 96-120:&nb sp; H old 30 minutes, decrease rate 150 units/hr&n bsp; - aPTT > 120: Hold 60 minutes, decrease rate 200 units/hr&n bsp; Check aPTT 6 hours after initiation , then Q6H after every change, aPTT Q12H once therapeuti c levels are reached.&n bsp; DO NOT ADJUST INITIAL BOLUS OR INITIAL INFUSION RATE.
sulfur 2021-0 2021- No [id number] 5mL 5 mL, Unive rs hexafluorid 09-20 Intravenou i ty of e microsphr 21:30: 21:30 s, ONCE, 1 [place] (LUMASON) 00 :00 dose, On Medica l injection 5 Thu09/20/21 Br anch mL at 1630, Routine
member service specialist approving Restricted medication : ROSI CHIRINOS tiotropium Yes 18ug 18 mcg, Univ ers (SPIRIVA) 09-20 Inhalation ity of inhalation 14:00: , DAILY, [place] as 18 mcg 00 First dose Medical on Thu09/20/21 at 0900, Until Discontinu ed, Routine aspirin EC Yes 81mg 81 mg, Unive rs tablet 81 09-20 Oral, ity of mg 14:00: DAILY, First dose Medical on Thu09/20/21 at 0900, Until Discontinu ed, Routine enoxaparin 2021- No 40mg 40 mg, Univ ers (LOVENOX) 09-20 Subcutaneo ity of injection 14:00: 23:18 us, DAILY, [place] 40 mg 00 :05 First dose Medical on Thu09/20/21 at 0900, Until Discontinu ed, Routine propranoloL 0 Yes 10mg 10 mg, Univ ers (INDERAL) 09-20 Oral, BID, ity of tablet 10 13:00: First dose [place] mg 00 on Thu09/20/21 at Branch 0800, Until Discontinu ed, Routine clonazePAM 0 Yes 1mg 1 mg, Univer s (KLONOPIN) 09-20 Oral, TID, ity of tablet 1 mg 13:00: First dose [place] 00 on Thu09/20/21 at Branch 0800, Until Discontinu ed, Routine ipratropium 2021-0 Yes 3mL 3 mL, Unive rs -albuteroL 09-20 Inhalation ity of (DUONEB) 05:36: , QIDPRN, [place] 0.5 mg-3 09 Starting Medical mg(2.5 mg on Thu Branch base)/3 mL 09/20/21 at nebulizer 0036, solution 3 Until mL Discontinu ed, Routine, Wheezing, Shortness of Breath, Bronchospa sm, Chest tightness ondansetron Yes 4mg 4 mg, Slow Univers (ZOFRAN 09-20 IV Push, ity of (PF)) 03:40: Q6HPRN, [place] injection 4 41 Starting Medi eloy mg on [facility] 09/19/21 at 2240, Until Discontinu ed, Routine, Nausea and Vomiting (N/V) acetaminoph Yes 650mg 650 mg, Un bam en 09-20 Oral, ity of (TYLENOL) 03:40: Q6HPRN, [place] tablet 650 36 Starting Medic al mg on [facility] 09/19/21 at 2240, Until Discontinu ed, Routine, Pain (scale 1-3) traMADoL No 50mg 50 mg, Univer s (ULTRAM) 09-20 Oral, ity of tablet 50 03:40: 20:25 Q8HPRN, [place] mg 33 :46 Starting Medical on Suj[facility] Branch 09/19/21 at 2240, Until 09/20/21 at 1525, Routine, Pain (scale 4-6) albuterol Yes 2{puff} 2 Puff, Un bam (VENTOLIN) 09-20 Inhalation ity of inhaler 2 03:38: , Q6HPRN, [place] as Puff 21 Starting Medical on [facility] 09/19/21 at 2238, Until Discontinu ed, Routine, Wheezing, Shortness of Breath nitroglycer 0 Yes .4mg 0.4 mg, Uni vers in 09-20 Sublingual ity of (NITROSTAT) 03:36: , Q5MIN [place] as sublingual 47 PRN, Medical tablet 0.4 Starting Branc h mg on Sujatha 09/19/21 at 2236, Until Discontinu ed, Routine, Chest pain morpHINE (4 Yes 4mg 4 mg, Slow Univers mg/mL) 09-20 IV Push, ity of injection 4 03:36: Q4HPRN, [place] mg 18 Starting Medical on [facility] Branch 09/19/21 at 2236, Until Discontinu ed, Routine, Pain (scale 7-10), Chest pain nitroglycer 2021- No .4mg 0.4 mg, Un bam in 09-20 Sublingual ity of (NITROSTAT) 02:30: 01:48 , ONCE, 1 [place] sublingual 00 :00 dose, On Medic al tablet 0.4 [facility] mg 09/19/21 at 2130, REINA ondansetron 2021- No 4mg 4 mg, Slow Univers (ZOFRAN 09-20 IV Push, ity of (PF)) 02:30: 01:47 ONCE, 1 [place] injection 4 00 :00 dose, On Medi eoly mg [place] Branch 09/19/21 at 2130, REINA morpHINE (4 No 4mg 4 mg, Slow Univers mg/mL) 09-20 IV Push, ity of injection 4 02:30: 01:48 ONCE, 1 [place] mg 00 :00 dose, On Medical [place] Branch 09/19/21 at 2130, REINA aspirin 81 0 Yes 81mg Take 81 mg U nivers mg EC 6-30 by mouth. ity of tablet 22:41: [place] 03 Medical Branch propranoloL 2021-0 Yes 10mg Take 10 mg Univers 10 mg 6-30 by mouth 2 ity of tablet 22:41: (two) [place] 03 times Medical daily. Branch Cholecalcif 0 Yes 1{tbl} Take 1 Un bam sunday, 6-30 tablet by ity of Vitamin D3, 22:41: mouth. [place] 50 mcg 03 Medical (2,000 Branch unit) capsule clonazePAM Yes 1mg Take 1 mg Un bam 1 mg tablet 6-30 by mouth 3 it y of 22:41: (three) [place] 03 times Medical daily. Branch citalopram 0 2021- No 40mg Take 40 mg Univers 40 mg 6-30 06-30 by mouth ity of tablet 22:41: 00:00 daily. [place] 03 :00 Medical Branch citalopram 2022-0 Yes 40mg Take 40 mg U nivers 40 mg 6-23 by mouth ity of tablet 08:13: daily. [place] [address] Medical Branch clonazePAM 2022-0 Yes 1mg Take 1 mg Un bam 1 mg tablet 6-23 by mouth 3 it y of 08:13: (three) [place] [address] times Medical daily. Branch citalopram 2022-0 Yes 40mg Take 40 mg U nivers 40 mg 6-23 by mouth ity of tablet 08:13: daily. [place] [address] Medical Branch clonazePAM 2022-0 Yes 1mg Take 1 mg Un bam 1 mg tablet 6-23 by mouth 3 it y of 08:13: (three) [place] [address] times Medical daily. Branch pravastatin 2022-0 Yes 40mg Take 1 Univ ers 40 mg 6-23 tablet by ity of tablet 00:00: mouth at [place] [address] bedtime. Medical Branch nitroglycer 2022-[id number] 1 Univers in 0.4 mg 6-23 tablet ity of sublingual 00:00: under the [place] tablet 00 tongue Medical every 5 Branch (five) minutes as needed for Chest pain. pravastatin 2022-0 Yes 40mg Take 1 Univ ers 40 mg 6-23 tablet by ity of tablet 00:00: mouth at [place] [address] bedtime. Medical Branch nitroglycer 2022-[id number] 1 Univers in 0.4 mg 6-23 tablet ity of sublingual 00:00: under the [place] tablet 00 tongue Medical every 5 Branch (five) minutes as needed for Chest pain. pravastatin 2022-0 Yes 40mg Take 1 Univ ers 40 mg 6-23 tablet by ity of tablet 00:00: mouth at [place] [address] bedtime. Medical Branch nitroglycer 2022-[id number] 1 Univers in 0.4 mg 6-23 tablet ity of sublingual 00:00: under the [place] tablet 00 tongue Medical every 5 Branch (five) minutes as needed for Chest pain. pravastatin 2022-0 Yes 40mg Take 1 Univ ers 40 mg 6-23 tablet by ity of tablet 00:00: mouth at [place] [address] bedtime. Medical Branch nitroglycer 2022-[id number] 1 Univers in 0.4 mg 6-23 tablet ity of sublingual 00:00: under the [place] tablet 00 tongue Medical every 5 Branch (five) minutes as needed for Chest pain. pravastatin 2-0 Yes 40mg Take 1 Univ ers 40 mg 6-23 tablet by ity of tablet 00:00: mouth at [place] 00 bedtime. Medical Branch nitroglycer 2021-[id number] 1 Univers in 0.4 mg 6-23 tablet ity of sublingual 00:00: under the [place] tablet 00 tongue Medical every 5 Branch (five) minutes as needed for Chest pain. pravastatin 2021-0 Yes 40mg Take 1 Univ ers 40 mg 6-23 tablet by ity of tablet 00:00: mouth at [place] 00 bedtime. Medical Branch nitroglycer 2021-[id number] 1 Univers in 0.4 mg 6-23 tablet ity of sublingual 00:00: under the [place] tablet 00 tongue Medical every 5 Branch (five) minutes as needed for Chest pain. pravastatin 2021-0 Yes 40mg Take 1 Univ ers 40 mg 6-23 tablet by ity of tablet 00:00: mouth at [place] 00 bedtime. Medical Branch nitroglycer 2021-[id number] 1 Univers in 0.4 mg 6-23 tablet ity of sublingual 00:00: under the [place] tablet 00 tongue Medical every 5 Branch (five) minutes as needed for Chest pain. pravastatin 2-0 Yes 40mg Take 1 Univ ers 40 mg 6-23 tablet by ity of tablet 00:00: mouth at [place] 00 bedtime. Medical Branch nitroglycer 2021-[id number] 1 Univers in 0.4 mg 6-23 tablet ity of sublingual 00:00: under the [place] tablet 00 tongue Medical every 5 Branch (five) minutes as needed for Chest pain. tiotropium 2021-0 Yes [id number] 18ug Inhale 1 Univers 18 mcg 5-13 capsule ity of inhalation 00:00: daily. [place] [address] Medical Branch albuterol 2021-0 Yes [id number] 2{puff} Inhale 2 Univers 90 5-13 Puffs ity of mcg/actuati 00:00: every 6 [place] as on inhaler 00 (six) Medical hours as Branch needed for Wheezing or Shortness of Breath. tiotropium 0 Yes [id number] 18ug Inhale 1 Univers 18 mcg 5-13 capsule ity of inhalation 00:00: daily. [place] Medical Branch albuterol 0 Yes [id number] 2{puff} Inhale 2 Univers 90 5-13 Puffs ity of mcg/actuati 00:00: every 6 [place] as on inhaler 00 (six) Medical hours as Branch needed for Wheezing or Shortness of Breath. tiotropium 0 Yes [id number] 18ug Inhale 1 Univers 18 mcg 5-13 capsule ity of inhalation 00:00: daily. [place] Medical Branch albuterol Yes [id number] 2{puff} Inhale 2 Univers 90 5-13 Puffs ity of mcg/actuati 00:00: every 6 [place] as on inhaler 00 (six) Medical hours as Branch needed for Wheezing or Shortness of Breath. tiotropium 0 Yes [id number] 18ug Inhale 1 Univers 18 mcg 5-13 capsule ity of inhalation 00:00: daily. [place] [facility] Branch albuterol Yes [id number] 2{puff} Inhale 2 Univers 90 5-13 Puffs ity of mcg/actuati 00:00: every 6 [place] as on inhaler 00 (six) Medical hours as Branch needed for Wheezing or Shortness of Breath. tiotropium 0 Yes [id number] 18ug Inhale 1 Univers 18 mcg 5-13 capsule ity of inhalation 00:00: daily. [place] [facility] Branch albuterol 0 Yes [id number] 2{puff} Inhale 2 Univers 90 5-13 Puffs ity of mcg/actuati 00:00: every 6 [place] as on inhaler 00 (six) Medical hours as Branch needed for Wheezing or Shortness of Breath. tiotropium 0 Yes [id number] 18ug Inhale 1 Univers 18 mcg 5-13 capsule ity of inhalation 00:00: daily. [place] Medical Branch albuterol 0 Yes [id number] 2{puff} Inhale 2 Univers 90 5-13 Puffs ity of mcg/actuati 00:00: every 6 [place] as on inhaler 00 (six) Medical hours as Branch needed for Wheezing or Shortness of Breath. tiotropium Yes [id number] 18ug Inhale 1 Univers 18 mcg 5-13 capsule ity of inhalation 00:00: daily. Medical Branch albuterol Yes [id number] 2{puff} Inhale 2 Univers 90 5-13 Puffs ity of mcg/actuati 00:00: every 6 [place] as on inhaler 00 (six) Medical hours as Branch needed for Wheezing or Shortness of Breath. tiotropium Yes [id number] 18ug Inhale 1 Univers 18 mcg 5-13 capsule ity of inhalation 00:00: daily. Medical Branch albuterol Yes [id number] 2{puff} Inhale 2 Univers 90 5-13 Puffs ity of mcg/actuati 00:00: every 6 [place] as on inhaler 00 (six) Medical hours as Branch needed for Wheezing or Shortness of Breath. ibuprofen 2020-03- No [id number] 800mg Take 1 Univers 800 mg 05-01 9100 tablet by ity of tablet 00:00: 00:00 mouth [place] 00 :00 every 8 Medical (eight) Branch hours as needed for Pain (scale 4-6). ibuprofen 2020-03- No [id number] 600mg Take 1 Univers 600 mg 09-12 [id number] tablet by ity of tablet 00:00: 00:00 mouth [place] 00 :00 every 6 Medical (six) Branch hours as needed for Pain (scale 4-6). propranoloL Yes 10mg Take 10 mg Univers 10 mg 9-16 by mouth 2 ity of tablet 14:47: (two) [place] 03 times Medical daily. Branch Cholecalcif Yes 1{tbl} Take 1 Un bam sunday, 9-16 tablet by ity of Vitamin D3, 14:47: mouth. [place] 50 mcg 03 Medical (2,000 Branch unit) capsule propranoloL Yes 10mg Take 10 mg Univers 10 mg 9-16 by mouth 2 ity of tablet 14:47: (two) [place] 03 times Medical daily. Branch Cholecalcif Yes 1{tbl} Take 1 Un bam sunday, 9-16 tablet by ity of Vitamin D3, 14:47: mouth. [place] 50 mcg 03 Medical (2,000 Branch unit) capsule ALPRAZolam 2020-0 2022- No .25mg Take 0.25 Univers 0.25 mg 7-23 06-23 mg by ity of tablet 00:00: 00:00 mouth. [place] 00 :00 Medical Branch aspirin 81 2020-0 Yes 81mg Take 81 mg U nivers mg EC 8-31 by mouth. ity of tablet 10:35: [place] 36 Medical Branch aspirin 81 2020-0 Yes 81mg Take 81 mg U nivers mg EC 8-31 by mouth. ity of tablet 10:35: [address] Branch citalopram citalopram No 1 Q1D [...] eye drops eye drops eye drops [facility] citalopram citalopram No citalopram [place] 20 mg 20 mg 20 mg da tablet tablet tablet [facility] cyclobenzap cyclobenzap No cyclobenza [place] rine 10 mg rine 10 mg charito 10 da tablet tablet mg tablet [facility] cyclobenzap cyclobenzap No cyclobenza [place] rine 5 mg rine 5 mg charito 5 mg da tablet tablet tablet [facility] diclofenac diclofenac No diclofenac [place] 1 % topical 1 % topical 1 % d a gel gel topical [facility] gabapentin gabapentin No gabapentin [place] 600 mg 600 mg 600 mg da tablet tablet tablet [facility] ibuprofen ibuprofen No ibuprofen [place] 600 mg 600 mg 600 mg da tablet tablet tablet [facility] ibuprofen ibuprofen No ibuprofen [place] 800 mg 800 mg 800 mg da tablet tablet tablet [facility] ketorolac ketorolac No ketorolac [place] 0.5 % eye 0.5 % eye 0.5 % eye da drops drops drops [facility] naproxen naproxen No naproxen [place] 500 mg 500 mg 500 mg da tablet tablet tablet [facility] ondansetron ondansetron [...] Unive rsity of MODERNA VACCINE 00:00:00 [facility] SARS-COV-2 COVID-19 2020-08-06 Completed Unive rsity of MODERNA VACCINE 00:00:00 [facility] SARS-COV-2 COVID-19 2020-08-06 Completed Unive rsity of MODERNA VACCINE 00:00:00 [facility] SARS-COV-2 COVID-19 2020-08-06 Completed Unive rsity of MODERNA VACCINE 00:00:00 [facility] SARS-COV-2 COVID-19 2020-08-06 Completed Unive rsity of MODERNA VACCINE 00:00:00 [facility] SARS-COV-2 COVID-19 2020-08-06 Completed Unive rsity of MODERNA VACCINE 00:00:00 [facility] SARS-COV-2 COVID-19 2020-08-06 Completed Unive rsity of MODERNA VACCINE 00:00:00 [facility] SARS-COV-2 COVID-19 2020-08-06 Completed Unive rsity of MODERNA VACCINE 00:00:00 [facility] SARS-COV-2 COVID-19 2020-07-09 Completed Unive rsity of MODERNA VACCINE 00:00:00 [facility] SARS-COV-2 COVID-19 2020-07-09 Completed Unive rsity of MODERNA VACCINE 00:00:00 [facility] SARS-COV-2 COVID-19 2020-07-09 Completed Unive rsity of MODERNA VACCINE 00:00:00 [facility] SARS-COV-2 COVID-19 2020-07-09 Completed Unive rsity of MODERNA VACCINE 00:00:00 [facility] SARS-COV-2 COVID-19 2020-07-09 Completed Unive rsity of MODERNA VACCINE 00:00:00 [facility] SARS-COV-2 COVID-19 2020-07-09 Completed Unive rsity of MODERNA VACCINE 00:00:00 [facility] SARS-COV-2 COVID-19 2020-07-09 Completed Unive rsity of MODERNA VACCINE 00:00:00 [facility] SARS-COV-2 COVID-19 2020-07-09 Completed Unive rsity of MODERNA VACCINE 00:00:00 [facility] influenza, influenza, 2018-11-21 Completed [facility] injectable, injectable, 00:00:00 Practice quadrivalent quadrivalent Vital Signs Vital Name Observation Time Observation Value Comments Source Systolic blood 2021-09-20 21:09:00 101 mm[Hg] Univer sity of pressure [facility] Diastolic blood 2021-09-20 21:09:00 68 mm[Hg] Unive rsity of pressure [facility] Heart rate 2021-09-20 21:09:00 52 /min [facility] Body temperature 2021-09-20 21:09:00 36.61 [facility]ya [facility] Oxygen saturation in 2021-09-20 21:09:00 97 /min [facility] Arterial blood by [facility] Pulse oximetry Branch Respiratory rate 2021-09-20 15:15:00 18 /min Univ ersity [facility] Body weight 2021-09-20 08:38:00 67.994 kg Universi ty of [facility] BMI 2021-09-20 08:38:00 21.51 kg/m2 Universi ty of [facility] Body height 2021-09-20 03:18:00 177.8 cm Universi ty of [facility] Systolic blood 2021-09-12 13:16:00 104 mm[Hg] Univer sity of pressure [facility] Diastolic blood 2021-09-12 13:16:00 76 mm[Hg] Unive rsity of [facility] Heart rate 2021-09-12 13:16:00 74 /min Universi ty of [facility] Body temperature 2021-09-12 13:16:00 36.72 Priya [facility] Respiratory rate 2021-09-12 13:16:00 16 /min [facility] ersity of [facility] Body height 2021-09-12 13:16:00 177.8 cm Universi ty [facility] Body weight 2021-09-12 13:16:00 69.083 kg Universi ty [facility] BMI 2021-09-12 13:16:00 21.85 kg/m2 Universi [facility] Oxygen saturation in 2021-09-12 13:16:00 97 /min [facility] Arterial blood by [facility] Pulse oximetry Branch Height 2020-07-05 00:00:00 70 [in_i] [facility] BMI (Body Mass 2020-07-05 00:00:00 22.2 kg/m2 [facility] Body Weight 2020-07-05 00:00:00 155 [lb_av] [facility] Height 2019-07-05 00:00:00 70 [in_i] [facility] BMI (Body Mass 2019-07-05 00:00:00 21.5 kg/m2 [facility] Body Weight 2019-07-05 00:00:00 150 [lb_av] [facility] Practice Procedures Procedure Date / Time Performing Clinician Source Performed TROPONIN I 2021-09-20 21:26:00 Scout Dennison o f [facility] THYROID STIMULATING 2021-09-20 21:26:00 [facility] PROTHROMBIN TIME / INR 2021-09-20 21:26:00 Jesi [facility] TRANSTHORACIC ECHO (TTE) 2021-09-20 21:17:00 Jesi [facility] COMPLETE W/ CONTRAST Medical [facility] POCT GLUCOSE (AUTOMATED) 2021-09-20 17:08:00 Shanice [facility] Medical Ione PHOSPHORUS 2021-09-20 11:17:00 Jesi [facility] MAGNESIUM 2021-09-20 11:17:00 Jesi [facility] TROPONIN I 2021-09-20 11:17:00 Shanice [facility] LIPID PANEL ([id number])(TOTAL 2021-09-20 11:17:00 Shefali Hinojosa [facility] CHOLESTEROL, [facility] TRIGLYCERIDES, HDL) TROPONIN I 2021-09-20 05:55:00 Shanice [facility] BASIC METABOLIC PANEL 2021-09-20 05:55:00 Shanice [facility] (NA, K, CL, CO2, GLUCOSE, Medica l Branch BUN, CREATININE, CA) CBC WITH DIFF 2021-09-20 05:55:00 Shanice [facility] GLYCOSYLATED HEMOGLOBIN 2021-09-20 05:55:00 Jesi [facility] (A1C) Medical Branch COVID-19 (ID NOW RAPID 2021-09-20 01:47:00 [facility] TESTING) Medical Branch LAB ONLY COVID 2021-09-20 01:47:00 Johnny Moss [facility] INTERPRETATION [facility] URINE DRUG (IMMUNOASSAY) 2021-09-20 01:47:00 Johnny Moss [facility] - COMPREHENSIVE DRUG Medical [facility] SCREEN W/O REFLEX XR CHEST 1 VW 2021-09-20 01:38:00 Johnny Moss [facility] LIPASE 2021-09-20 01:18:00 Johnny Moss [facility] TROPONIN I 2021-09-20 01:18:00 Moss, Johnny [facility] COMP. METABOLIC PANEL 2021-09-20 01:18:00 Johnny Moss [facility] ([id number]) [facility] CBC WITH DIFF 2021-09-20 01:18:00 Johnny Moss [facility] PROTHROMBIN TIME / INR 2021-09-20 01:18:00 Johnny Moss [facility] ACTIVATED PARTIAL 2021-09-20 01:18:00 Johnny Moss [facility] THRMPLAS [place] [facility] N-TERMINAL PRO-BNP 2021-09-20 01:18:00 Johnny Moss [facility] HB ECG ROUTINE & RHYTHM 2021-09-20 01:15:31 Ajay Johnny [facility] NOTICE OF PRIVACY 2021-09-20 01:08:48 Doctor Unassigned, [facility]US[facility] FOR 2021-09-20 01:02:38 Doctor Unassigned, [facility] DIAGNOSIS AND TREATMENT [place] [facility] INSURANCE CORRESPONDENCE 2021-09-16 05:01:00 Doctor Unassigned, [facility] Name [facility] HB ECG ROUTINE & RHYTHM 2021-09-12 13:18:19 Shefali Hinojosa [facility] Extraction of Cataract [facility] Appendectomy [place] [facility] Hernia Repair W/mesh [place] [facility] Appendectomy [facility] Plan of Care Planned Activity Planned Date Details Comments Source Instructions [facility] Encounters Start End Encounter Admission Attending Care Care Encounter Source Date/Time Date/Time Type Type Clinicians Facility Department ID 2022-02-07 2022-02-07 Outpatient R LUIS DANIEL JOHNSON [facility] [id number] [facility] 09:00:00 09:00:00 LUIS DANIEL JOHNSON i [facility] 2021-09-24 2021-09-24 Telephone Ashish DCALY [id number] [facility] 00:00:00 00:00:00 Shefali MORRISON [id number] [facility] 4.2.7.2.686 Carlita khoury PROFESSIO [id number] Ks dical NAL 9 [facility] 2021-09-24 2021-09-24 Telephone [facility] [id number] Univers 00:00:00 00:00:00 Shefali MORRISON [id number] [facility] [id number] [phone] [place]ical NAL 9 [facility] 2021-09-24 2021-09-24 Transition SYLVESTER [place] [id number] Univers 00:00:00 00:00:00 of Care Olivia NAGY [id number] [place] [id number] [address] 2021-09-19 2021-09-21 Outpatient X ANDREIA, [facility] [id number] Univers 20:07:00 00:16:00 SHIRA ity of [facility] 2021-09-19 2021-09-21 Hospital Johnny Moss [id number] Univers 20:07:00 00:16:00 Encounter Rafaela Prasad [id number] ity of [facility] 4.2.7.2.686 [facility] Clear Lakericky Minaya [id number] [address] 2021-09-19 2021-09-19 Telephone [facility] [id number] Univers 00:00:00 00:00:00 Shefali MORRISON [id number] ity [facility] [place] [id number] [place] dical NAL [address] [place] [address] 2021-09-17 2021-09-17 Patient [facility] [id number] Univers 00:00:00 00:00:00 Secure Msg Shefali ANGLEMIRYAM [id number] ity of [facility] [place] [phone] [place] dicct NAL [address] [place] [address] 2021-09-16 2021-09-16 Orders Doctor ROSAMARIA [id number] Univers 00:00:00 00:00:00 Only Unassigned, LAURYN [id number] ity of [place] [facility] 4.2.7.2.686 Kishore as [id number] [facility] 009 Branch 2021-09-12 2021-09-12 Office Ashish [facility] [id number] Univers 08:40:00 08:40:43 Visit Shefali MORRISON [id number] ity of [place] [id number] [facility] 059 [facility] 2021-07-17 2021-07-17 Outpatient METCALF_PRI SCLISA [facility] 702 [place] 11:54:00 11:54:00 SCILLA 0427 da [facility] 2020-07-25 2020-07-25 Outpatient Tonie[facility]Mbayo [facility] [address] [place] [address] 05:42:00 05:42:00 _A_AH 44462 Family Practic e 2020-07-09 2020-07-09 Outpatient Tonie-Mbayo [facility] [address] [place] [address] 09:06:00 09:06:00 _A_AH 68166 Family Practic e 2020-07-05 2020-07-05 [facility] [place] - [id number] V illage 00:00:00 00:00:00 [facility] Fam jonathon coleman FLOWERS SALESPERSON: Medical - Practi c [address] [email or web address], [address] [address], [place] [address] , Ph. 2020-06-12 2020-06-12 Patient Dirk [facility] 1.2.840.114 [id number] 00:00:00 00:00:00 Outreach Eulalio JEFFERS 350.1.13.10 [facility] 4.2.7.2.686 PAVILLIJULIETTE [id number] [id number] 2020-05-23 2020-05-23 Orders Doctor BLANK 1.2.840.114 [id number] 00:00:00 00:00:00 Only Unassigned, LAURYN 350.1.13.10 [place] [address]686 [id number] 009 2020-05-13 2020-05-13 Emergency [facility] [id number] 11:38:00 12:32:00 Johnny Mario 350.1.13.10 [place] 4.2.7.2.686 [place] [id number] 084 2020-05-13 2020-05-13 Orders Doctor ROSAMARIA 1.2.840.114 [id number] 00:00:00 00:00:00 Only Unassigned, LAURYN 350.1.13.10 [place] [address]686 [id number] 009 2020-02-20 2020-02-20 Orders Doctor ROSAMARIA 1.2.840.114 [id number] 00:00:00 00:00:00 Only Unassigned, LAURYN 350.1.13.10 [place] [address]686 [id number] 009 2020-02-04 2020-02-04 Emergency [facility] [id number] 12:43:00 13:48:00 Susy Marteton 350.1.13.10 [place] 4.2.7.2.686 [place] [id number] 084 2019-12-13 2019-12-13 Outpatient AMBREEN_FAR [place] [address] [place] 05:32:00 05:32:00 HANA 0922 [facility] 2019-12-06 2019-12-06 Outpatient AMBREEN_FAR [place] [address] [place] 05:36:00 05:36:00 HANA 0915 da [facility] 2019-12-06 2019-12-06 [facility] - [id number] [place] 00:00:00 00:00:00 Nahun Streeter MD: [address] [place] [facility] [facility] Dayanara F, [facility] [place], [place] [facility] [address] Outre ac , Ph. h ([phone]) [facility] 2019-11-22 2019-11-22 Telephone [facility] [id number] 00:00:00 00:00:00 Shefali Morrison 350.1.13.10 [place] 4.2.7.2.686 Professio [id number] [facility] 059 [facility] 2019-11-21 2019-11-21 Office [facility] 1.2.840.114 [id number] 10:05:29 10:53:34 Visit Shefali Morrison 350.1.13.10 [place] 4.2.7.2.686 Professio [id number] [facility] 2019-11-18 2019-11-18 Orders Doctor ROSAMARIA 1.2.840.114 [id number] 00:00:00 00:00:00 Only Unassigned, LAURYN 350.1.13.10 [place] [facility] 4.2.7.2.686 [id number] 2019-08-12 2019-08-12 Outpatient Tonie[facility]Mbayo [facility] [address] [place] [address] 11:11:00 11:11:00 _A_AH 11618 Family Practic e 2019-07-20 2019-07-20 Outpatient Tonie-Mbayo [facility] [address] [place] [address] 09:28:00 09:28:00 _A_AH 96666 Family Practic e 2019-07-05 2019-07-05 Outpatient Tonie-Mbayo [facility] [address] [place] [address] 09:42:00 09:42:00 _A_AH 78634 Family Practic e 2019-07-05 2019-07-05 [facility] [place] - [id number] V illage 00:00:00 00:00:00 Tonie-Mbay [facility] Fam jonathon coleman FLOWERS SALESPERSON: Medical - Practi c [address] [email or web address], [address] [address], [place] [address] , Ph. 2019-06-22 2019-06-22 Outpatient Tonie-Mbayo [facility] [address] [place] [address] 10:56:00 10:56:00 _A_AH 77214 Family Practic e 2019-02-25 2019-03-22 Outpatient 3 [facility]IS [facility] 1207 [address]- Taoist 14:12:00 15:28:00 RUFINO [id number] Hospi ta l ([place]) Results Test Description Test Time Test Comments Results Result Comments Source THYROID STIMULATING HORMONE 2021-09-21 03:09:27 Test Item Value Reference Range Interpretation Comme nts TSH (test code = 5977151549) See_Comment Biotin has been reported to cause a negative bias , interpret results relativ e to patient's use of biotin. [Aut omated message] The system [employer] generated this result transmit judit reference range: 0.45 - 4 .70 mIU/L. The reference range was not used to interpret this result as normal/abnormal . Lab Interpretation (test code = Normal 44382-0) [facility]2021-09-21 00:17:30 Test Item Value Reference Range Interpretation Comments HGB A1C (test code = 5.1 % 4.0-5.7 4548-4) LA (test code = LA) Reference RangesNormal: <5.7%Prediabetes: 5.7 - 6.4%Diabetes: > 6.5% Lab Interpretation (test Normal code = 82780-0) [facility] Time / [id number] 22:31:02 Test Item Value Reference Range Interpretation Comments PROTIME PATIENT (test See_Comment [Auto mated message] code = 5964-2) The system [employer] generated this result transmitted ref erence range: 10.1 - 1 2.6 Seconds. The re ference range was not u sed to interpret this result as normal/abnor mal. INR (test code = 6301-6) Nor mal INR <1.1; Warfarin Therap eutic range 2.0 to 3. 0 or 2.5 to 3.5, dep ending upon the indica tions. Lab Interpretation (test Normal code = 61478-3) [facility] [id number] 22:21:58 Test Item Value Reference Interpretation Comments Range TROPONIN I (test 0.009 ng/mL See_Comment [Automated code = 5875341274) message] The system which generated this result transmitted reference range : <=0.034. The reference range was not used to interpret this result as normal/abnormal . LA (test code = Reference (Normal) LA) Range (defined by the 99th percentile reference limit): <= 0.034 ng/mL Note: Cardiac troponin begins to rise 3-4 hours after the onset of ischemia. Repeat in 4-6 hours if the sample was drawn within 3-4 hours of the onset of the symptom and found normal. Diagnosis of myocardial injury is made with acute changes in cTn concentrations with at least one serial sample above the 99th percentile upper reference limit (URL), taken together with the patient's clinical presentation. Biotin has been reported to cause a negative bias, interpret results relative to patient's use of biotin. Lab Interpretation Normal (test code = 11958-9) [facility] (TTE)2021-09-20 21:49:31 Test Item Value Reference Range Interpretation Comments Height (test code = in 1395828956) Weight (test code = lbs 0807498950) Systolic BP (test code = mmHg 8117507337) Diastolic BP (test code = mmHg 1539981102) Heart Rate (test code = bpm 5100253338) LVOT stroke volume (test 49.90 cm3 code = 6294055731) EF(Teich) (test code = 58.10 % 1606252069) LVIDD (test code = 4.20 cm 4257247630) LVIDS (test code = 2.90 cm 0162399284) IVS (test code = 0.95 cm 8036365203) LVPWD (test code = 0.93 cm 5714505687) LVOT diameter (test code = 1.94 cm 6364296163) FS (test code = 30 % 4519662690) MV Peak E Checo (test code = 80.6 cm/s 2228152357) MV Peak A Checo (test code = 39.8 cm/s 2004930661) E/A ratio (test code = ratio 8426529818) E wave decelartion time 0.15 s (test code = 3234766425) LA volume (BP) (test code 52.2 mL = 8056563546) LVOT peak checo (test code = 77.6 cm/s 2384156097) LVOT mn grad (test code = mmHg 5848090684) LA size (test code = 2.22 cm 4185674762) LAV(MOD-sp2) (test code = 38.80 mL 7695641700) LAV(MOD-sp4) (test code = 61.40 mL 6288565847) Tapse (test code = 2.24 cm 2523443720) Aortic valve mean velocity 56.6 cm/s (test code = 2250936050) Ao peak checo (test code = 81.4 cm/s 8150534358) Ao VTI (test code = 17.9 cm 4643671987) AV LVOT peak gradient mmHg (test code = 5757774052) LVOT peak VTI (test code = 17.0 cm 9720937867) AV area by cont VTI (test 2.8 cm2 code = 5297787838) AV area peak checo (test 2.8 cm2 code = 2066727986) LV V1 mean (test code = 50.80 cm/s 3168036890) Ao max PG (test code = 2.70 mm[Hg] 9640615963) MV Prop V (test code = 51.60 cm/s 3095844430) Ao root annulus (test code 3.0 cm = 8322064238) Ao root diam (test code = 3.00 cm 2135707262) AV peak gradient (test mmHg code = 2270988702) AV valve area (test code = 2.80 cm2 7942390307) AV mean gradient (test mmHg code = 3668903897) Aortic root (test code = 3.0 cm 0326845425) PW (test code = 0.93 cm 0.6-1.2 6831096196) EF - 2D (test code = 58.10 % 36492149) Interventricular Septum 0.95 cm Diastolic Thickness by 2D (test code = 4302343) LA Volume Index (BP) (test 28.4 mL/m2 code = 9783711399) BSA (test code = 1.84 m2 8312467638) LV Diastolic Volume (BP) 108.3 mL (test code = 2343772369) EF(MOD-bp) (test code = 47.20 % 0203561004) LV Systolic Volume (BP) 57.2 mL (test code = 1082278226) SV(MOD-bp) (test code = 51.10 mL 4948127292) EF (test code = 47 % 1708653992) Left Ventricular Stroke 51.1 mL Volume by 2-D Biplane-MOD (test code = 2468425) Radiology Study observation (narrative) (test code = 19122-7) LA (test code = LA) ?Left?Ventricle: Normal wall motion. Normal systolic function with a visually estimated EF of 55 - 60%. Normal diastolic function. ?Right?Ventricle: Right ventricle size is normal. Normal systolic function. [facility] (10609)(TOTAL CHOLESTEROL, TRIGLYCERIDES, HDL)2021-09-20 20:39:18 Test Item Value Reference Range Interpretation Comments CHOL (test code = 170 mg/dL 120-200 6079538355) HDL (test code = 29 mg/dL >40 L 7593943903) HDLC RATIO (test code = See_Comment H [Au tomated message] 9837361424) The system M-Audio generated this result transmit judit reference range : <=5.0. The refe rence range was not u sed to interpret th is result as normal/abnormal . TRIG (test code = 130 mg/dL 30-170 0429283531) LDL CHOL (test code = 115 mg/dL See_Comment [Auto mated message] 55761-9) The system [employer] generated this result transmit judit reference range : <=160. The refe rence range was not u sed to interpret th is result as normal/abnormal . VLDL (test code = 26 mg/dL 5-60 1577823155) Lab Interpretation (test Abnormal code = 08749-7) [facility]2022-07-01 20:39:18 Test Item Value Reference Range Interpretation Comments MAGNESIUM (test code = 1309120088) 2.2 mg/dL 1.7-2.4 Lab Interpretation (test code = Normal 22619-8) [facility] HospitalPhosphorus [id number] 20:38:58 Test Item Value Reference Range Interpretation Comments PHOSPHORUS (test code = 2152383899) 3.0 mg/dL 2.5-5.0 Lab Interpretation (test code = Normal 04339-9) [facility]SE (AUTOMATED)2021-09-20 17:19:48 Test Item Value Reference Range Interpretation Comments POCT GLU (test code = 4681804419) 109 mg/dL 70-110 Lab Interpretation (test code = Normal 38189-0) [facility] [id number] 11:59:57 Test Item Value Reference Interpretation Comments Range TROPONIN I (test 0.007 ng/mL See_Comment [Automated code = 0364854491) message] The system which generated this result transmitted reference range : <=0.034. The reference range was not used to interpret this result as normal/abnormal . LA (test code = Reference (Normal) LA) Range (defined by the 99th percentile reference limit): <= 0.034 ng/mL Note: Cardiac troponin begins to rise 3-4 hours after the onset of ischemia. Repeat in 4-6 hours if the sample was drawn within 3-4 hours of the onset of the symptom and found normal. Diagnosis of myocardial injury is made with acute changes in cTn concentrations with at least one serial sample above the 99th percentile upper reference limit (URL), taken together with the patient's clinical presentation. Biotin has been reported to cause a negative bias, interpret results relative to patient's use of biotin. Lab Interpretation Normal (test code = 87665-5) [facility] [id number] 07:04:25 Test Item Value Reference Interpretation Comments Range TROPONIN I (test 0.007 ng/mL See_Comment [Automated code = 8506841767) message] The system which generated this result transmitted reference range : <=0.034. The reference range was not used to interpret this result as normal/abnormal . LA (test code = Reference (Normal) LA) Range (defined by the 99th percentile reference limit): <= 0.034 ng/mL Note: Cardiac troponin begins to rise 3-4 hours after the onset of ischemia. Repeat in 4-6 hours if the sample was drawn within 3-4 hours of the onset of the symptom and found normal. Diagnosis of myocardial injury is made with acute changes in cTn concentrations with at least one serial sample above the 99th percentile upper reference limit (URL), taken together with the patient's clinical presentation. Biotin has been reported to cause a negative bias, interpret results relative to patient's use of biotin. Lab Interpretation Normal (test code = 87404-2) [facility] Metabolic Panel (NA, K, CL, CO2, GLUCOSE, BUN, CREATININE, CA)2021-09-20 06:52:46 Test Item Value Reference Range Interpretation Comments NA (test code = 140 mmol/L 135-145 5059710127) K (test code = 3.5 mmol/L 3.5-5.0 0708300913) CL (test code = 107 mmol/L 98-108 4054724571) CO2 TOTAL (test code = 27 mmol/L 23-31 9084046147) AGAP (test code = 2-16 5545281525) BUN (test code = 11 mg/dL 7-23 0176748317) GLUCOSE (test code = 107 mg/dL 70-110 4072493481) CREATININE (test code = 0.77 mg/dL 0.60-1.25 5810615995) CALCIUM (test code = 8.5 mg/dL 8.6-10.6 L 0155958909) eGFR (test code = mL/min/1.73m2 3023137078) LA (test code = LA) Association of Glomerular Filtration Rate (GFR) and Staging of Kidney Disease* + --+ --+ ------+| GFR (mL/min/1.73 m2) ?| With Kidney Damage ?| ?Without Kidney Damage+ --------+ --------+ +| ?>90 ?| ?Stage one ?| ? Normal ?+ ---+ ---+ -------+| ?60-89 ?| ?Stage two ?| ? Decreased GFR ? + --+ --+ ------+| ?30-59 ?| ?Stage three ?| ? Stage three ? + --+ --+ ------+| ?15-29 ?| ?Stage four ? | ? Stage four ?+ ---+ ---+ -------+| ?<15 (or dialysis) ? ?| ?Stage five ? | ? Stage five ?+ ---+ ---+ -------+ *Each stage assumes the associated GFR level has been in effect for at least three months. ?Stages 1 to 5, with or without kidney disease, indicate chronic kidney disease. Notes: Determination of stages one and two (with eGFR >59mL/min/1.73 m2) requires estimation of kidney damage for at least three months as defined by structural or functional abnormalities of the kidney, manifested by either:Pathological abnormalities or Markers of kidney damage (including abnormalities in the composition of the blood or urine or abnormalities in imaging tests). Lab Interpretation Abnormal (test code = 03243-0) [facility] with [id number] 06:41:06 Test Item Value Reference Range Interpretation Comments WBC (test code = See_Comment [Automated 6690-2) message] The sy stem which generated this result transmitted reference range : 4.20 - 10.70 10*3/?L. The reference range was not used to interpret this result as normal/abnormal . RBC (test code = See_Comment L [Automated 789-8) message] The sy stem which generated this result transmitted reference range : 4.26 - 5.52 10*6/?L. The reference range was not used to interpret this result as normal/abnormal . HGB (test code = 12.7 g/dL 12.2-16.4 718-7) HCT (test code = 38.0 % 38.4-49.3 L 4544-3) MCV (test code = 90.5 fL 81.7-95.6 787-2) MCH (test code = 30.2 pg 26.1-32.7 785-6) MCHC (test code = 33.4 g/dL 31.2-35.0 786-4) RDW-SD (test code = 46.3 fL 38.5-51.6 99336-8) RDW-CV (test code = 14.0 % 12.1-15.4 788-0) PLT (test code = See_Comment [Automated 777-3) message] The sy stem which generated this result transmitted reference range : 150 - 328 10*3/ ?L. The reference r randal was not used to interpret this result as normal/abnormal . MPV (test code = 10.6 fL 9.8-13.0 52047-5) NRBC/100 WBC (test See_Comment [Automat ed code = 6965097811) message] The system which generated this result transmitted reference range : 0.0 - 10.0 /100 WBCs. The refer ence range was not u sed to interpret th is result as normal/abnormal . NRBC x10^3 (test code <0.01 See_Comment [Auto mated = 7739141228) message] The s ystem which generated this result transmitted reference range : 10*3/?L. The reference range was not used to interpret this result as normal/abnormal . GRAN MAT (NEUT) % 41.8 % (test code = 770-8) IMM GRAN % (test code 0.30 % = 0040915626) LYMPH % (test code = 43.2 % 736-9) MONO % (test code = 8.7 % 5905-5) EOS % (test code = 5.6 % 713-8) BASO % (test code = 0.4 % 706-2) GRAN MAT x10^3(ANC) 3.13 10*3/uL 1.99-6.95 (test code = 4432669261) IMM GRAN x10^3 (test <0.03 0.00-0.06 code = 6326975624) LYMPH x10^3 (test code 3.23 10*3/uL 1.09-3.23 = 731-0) MONO x10^3 (test code 0.65 10*3/uL 0.36-1.02 = 742-7) EOS x10^3 (test code = 0.42 10*3/uL 0.06-0.53 711-2) BASO x10^3 (test code 0.03 10*3/uL 0.01-0.09 = 704-7) Lab Interpretation Abnormal (test code = 81675-7) [facility] [id number] 01:50:55 Test Item Value Reference Interpretation Comments Range TROPONIN I (test 0.007 ng/mL See_Comment [Automated code = 3065001124) message] The system which generated this result transmitted reference range : <=0.034. The reference range was not used to interpret this result as normal/abnormal . LA (test code = Reference (Normal) LA) Range (defined by the 99th percentile reference limit): <= 0.034 ng/mL Note: Cardiac troponin begins to rise 3-4 hours after the onset of ischemia. Repeat in 4-6 hours if the sample was drawn within 3-4 hours of the onset of the symptom and found normal. Diagnosis of myocardial injury is made with acute changes in cTn concentrations with at least one serial sample above the 99th percentile upper reference limit (URL), taken together with the patient's clinical presentation. Biotin has been reported to cause a negative bias, interpret results relative to patient's use of biotin. Lab Interpretation Normal (test code = 25327-4) [facility] [id number] 01:47:34 Test Item Value Reference Range Interpretation Comments NT-proBNP (test code 116 pg/mL See_Comment [Autom ated = 2749608970) message] The system which generated this result transmitted reference range : <=125. The reference range was not used to interpret this result as normal/abnormal . LA (test code = LA) Biotin has been reported to cause a negative bias, interpret results relative to patient's use of biotin. Lab Interpretation Normal (test code = 28986-5) [facility]. METABOLIC PANEL (22501)2021-09-20 01:38:35 Test Item Value Reference Range Interpretation Comments NA (test code = 140 mmol/L 135-145 6641666689) K (test code = 3.8 mmol/L 3.5-5.0 6127852347) CL (test code = 106 mmol/L 98-108 4730231029) CO2 TOTAL (test code 26 mmol/L 23-31 = 5514146658) AGAP (test code = 2-16 6557461774) BUN (test code = 14 mg/dL 7-23 1372663445) GLUCOSE (test code = 103 mg/dL 70-110 8435141797) CREATININE (test code 0.83 mg/dL 0.60-1.25 = 0562154804) TOTAL BILI (test code 0.3 mg/dL 0.1-1.1 = 0637936641) CALCIUM (test code = 8.9 mg/dL 8.6-10.6 7120750959) T PROTEIN (test code 6.4 g/dL 6.3-8.2 = 5263856036) ALBUMIN (test code = 3.9 g/dL 3.5-5.0 7810098171) ALK PHOS (test code = 99 U/L 34-122 5464230278) ALTv (test code = 12 U/L 5-50 1742-6) AST(SGOT) (test code 17 U/L 13-40 = 5859820447) eGFR (test code = mL/min/1.73m2 1205300318) LA (test code = LA) Association of Glomerular Filtration Rate (GFR) and Staging of Kidney Disease* + + +- +| GFR (mL/min/1.73 m2) ?| With Kidney Damage ?| ?Without Kidney Damage+ ------+ ----+ ------+| ?>90 ?| ?Stage one ?| ? Normal ?+ -+ + -+| ?60-89 ?| ?Stage two ?| ? Decreased GFR ? + + +- +| ?30-59 ?| ?Stage three ?| ? Stage three ? + + +- +| ?15-29 ?| ?Stage four ? | ? Stage four ?+ -+ + -+| ?<15 (or dialysis) ? ?| ?Stage five ? | ? Stage five ?+ -+ + -+ *Each stage assumes the associated GFR level has been in effect for at least three months. ?Stages 1 to 5, with or without kidney disease, indicate chronic kidney disease. Notes: Determination of stages one and two (with eGFR >59mL/min/1.73 m2) requires estimation of kidney damage for at least three months as defined by structural or functional abnormalities of the kidney, manifested by either:Pathological abnormalities or Markers of kidney damage (including abnormalities in the composition of the blood or urine or abnormalities in imaging tests). [facility] [id number] 01:38:15 Test Item Value Reference Range Interpretation Comments APTT Patient (test See_Comment [Automat ed code = 3173-2) message] The system which generated this result transmitted reference range : 23 - 38 Seconds . The reference range was not used to interpr et this result as normal/abnormal . LA (test code = LA) The [facility] patient population mean normal value for aPTT is 30 seconds. Lab Interpretation Normal (test code = 02887-7) [facility] 01:38:15 Test Item Value Reference Range Interpretation Comments LIPASE (test code = 5555012295) 100 U/L 0-220 Lab Interpretation (test code = Normal 94396-8) [facility]PROT[facility] / [id number] 01:36:15 Test Item Value Reference Range Interpretation Comments PROTIME PATIENT (test See_Comment [Auto mated message] code = 5964-2) The system [employer] generated this result transmitted ref erence range: 12.0 - 1 4.7 Seconds. The re ference range was not u sed to interpret this result as normal/abnor mal. INR (test code = 6301-6) Nor mal INR <1.1; Warfarin Therap eutic range 2.0 to 3. 0 or 2.5 to 3.5, dep ending upon the indica tions. Lab Interpretation (test Normal code = 63204-2) [facility] WITH [id number] 01:28:36 Test Item Value Reference Range Interpretation Comments WBC (test code = See_Comment [Automated message] 6690-2) The system [employer] generated this result transmitted ref erence range: 4.20 - 1 0.70 10*3/?L. The re ference range was not u sed to interpret this result as normal/abnor mal. RBC (test code = See_Comment [Automated message] 609-8) The system [employer] generated this result transmitted ref erence range: 4.26 - 5 .52 10*6/?L. The re ference range was not u sed to interpret this result as normal/abnor mal. HGB (test code = 13.3 g/dL 12.2-16.4 718-7) HCT (test code = 39.7 % 38.4-49.3 4544-3) MCV (test code = 90.2 fL 81.7-95.6 787-2) MCH (test code = 30.2 pg 26.1-32.7 785-6) MCHC (test code = 33.5 g/dL 31.2-35.0 786-4) RDW-SD (test code 46.6 fL 38.5-51.6 = 50236-6) RDW-CV (test code 13.9 % 12.1-15.4 = 788-0) PLT (test code = See_Comment [Automated message] 397-3) The system whic h generated this result transmitted ref erence range: 150 - 32 8 10*3/?L. The re ference range was not u sed to interpret this result as normal/abnor mal. MPV (test code = 10.3 fL 9.8-13.0 59288-6) NRBC/100 WBC (test See_Comment [Automat ed message] code = 9018067344) The syste m which generated this result transmitted ref erence range: 0.0 - 10 .0 /100 WBCs. The refer ence range was not u sed to interpret this result as normal/abnor mal. NRBC x10^3 (test <0.01 See_Comment [Automated message] code = 0741274553) The syste m which generated this result transmitted ref erence range: 10*3/?L. The reference range was not used to interpr et this result as normal/abnormal . GRAN MAT (NEUT) % 51.0 % (test code = 770-8) IMM GRAN % (test 0.20 % code = 9655438419) LYMPH % (test code 34.9 % = 736-9) MONO % (test code 8.7 % = 5905-5) EOS % (test code = 4.8 % 713-8) BASO % (test code 0.4 % = 706-2) GRAN MAT 4.61 10*3/uL 1.99-6.95 x10^3(ANC) (test code = 5584375638) IMM GRAN x10^3 <0.03 0.00-0.06 (test code = 1412372241) LYMPH x10^3 (test 3.16 10*3/uL 1.09-3.23 code = 731-0) MONO x10^3 (test 0.79 10*3/uL 0.36-1.02 code = 742-7) EOS x10^3 (test 0.43 10*3/uL 0.06-0.53 code = 711-2) BASO x10^3 (test 0.04 10*3/uL 0.01-0.09 code = 704-7) [facility] CHEM [id number] 11:05:00 Test Item Value Reference Range Interpretation [...] of Reference Range s BMP, BASIC METABOLIC [id number] 15:07:00 Test Item Value Reference Range Interpretation [...] glucose = GLUCOSE) normal <100 MG/ DL- [employer] recommendation* * CALCIUM (test code 9.4 MG/DL 8.4-10.2 = CABLOOD) GFR (test code = 95 A GFR of >9 0 GFR) mL/min/1.73m2 mL/min/1.73m2 is considered norm al. [id number] 15:07:00 Test Item Value Reference Range Interpretation Comments MG (test code = MG) 2.4 mg/dL 1.6-2.3 H PROTHROMBIN TIME WITH [id number] 14:02:00 Test Item Value Reference Range Interpretation Comments PROTHROMBIN TIME 13.7 SECONDS 12.0-14.6 INR Usual R randal = 2 (test code = PT) to 3 for pr evention of deep vein thrombosis (DVT ) INR (test code = INR) 1.1 [id number] 13:45:00 Test Item Value Reference Range Interpretation [...] K/UL 1.2-7.2 = NEUT) CHEST XR 2 [id number] 12:25:00[address] [id number] IMAGING REPORTPatient Name: Yamil TABARES of Service: [id number]: [id number] Sex: M Order #: [id number] [facility] 1970 X-Ray Number: [id number] Record Number: [id number] Hospital Number: [id number] Physician: NELIDA WAITE -Ordering Physician: NELIDA WAITECHEST.08/24/2018 [...] 12:23:24PET, CARDIAC PERFUSION MULTIPLE STUDIES, REST AND [id number] 15:30:00Reason for exam:- >chest pain, multiple risk factors for CADFINAL REPORT PROCEDURE: Rest/Stress MYOCARDIAL PERFUSION PET with regadenoson\\XA9\\ CPT CODE: 59068 INDICATION: Chest pain, multiple risk factors for [...] or with stress(JACC. 2012;59(9):857-81.) Signed: [facility] C[facility] Verified Date/Time:11/27/2017 15:30:18 Reading Location: [address] Reading Room HEMOGLOBIN [id number] 09:48:00 Test Item Value Reference Range Interpretation Comments HEMOGLOBIN A1C (BEAKER) (test code = 4.9 % 4.3-6.1 368) BASIC METABOLIC [id number] 06:47:00 Test Item Value Reference Range Interpretation [...] DATA TO CALCULA TE ESTIMATED GFR. TROPONIN [id number] 06:44:00 Test Item Value Reference Range Interpretation [...] failure, acidosis, acute neurological disease, and persistent tachyarrhythmia.[id number] 06:43:00 Test Item Value Reference Range Interpretation Comments MAGNESIUM (BEAKER) (test code = 2.7 mg/dL 1.6-2.6 H 627) CBC W/PLT COUNT & AUTO [id number] 06:09:00 Test Item Value Reference Range Interpretation [...] PERCENT (BEAKER) (test code = 2801) TROPONIN [id number] 01:49:00 Test Item Value Reference Range Interpretation [...] acute neurological disease, and persistent tachyarrhythmia.BASIC METABOLIC [id number] 01:49:00 Test Item Value Reference Range Interpretation [...] m DATA TO CALCULA TE ESTIMATED GFR. [id number] 01:42:00 Test Item Value Reference Range Interpretation Comments MAGNESIUM (BEAKER) (test code = 2.2 mg/dL 1.6-2.6 627) LIPID [id number] 01:42:00 Test Item Value Reference Range Interpretation [...] 130-159 High 160-189 Very High >=190HEPATIC FUNCTION [id number] 01:42:00 Test Item Value Reference Range Interpretation [...] 6-55 347) CBC W/PLT COUNT & AUTO [id number] 00:59:00 Test Item Value Reference Range Interpretation [...] % 0-1 PERCENT (BEAKER) (test code = 280)
== END 2021-09-27 16:03 | disposition home or self-care (01) | DRG 287 ==
LOC: ER 16:38 → 2ND 20:14 → OBSVTOIN 09-26 15:56
PROVIDERS: ADMIT Internal Medicine; ATTEND Internal Medicine
PROC: B2011ZZ Plain Radiography of Multiple Coronary Arteries using Low Osmolar Contrast (ICD-10-PCS; principal; 2021-09-26)
PROC: 4A023N7 Measurement of Cardiac Sampling and Pressure, Left Heart, Percutaneous Approach (ICD-10-PCS; 2021-09-26)
DX: I25.110 Atherosclerotic heart disease of native coronary artery with unstable angina pectoris (principal); I10 Essential (primary) hypertension; E78.5 Hyperlipidemia, unspecified; F31.9 Bipolar disorder, unspecified; F41.9 Anxiety disorder, unspecified; F32.A Depression, unspecified; J44.9 Chronic obstructive pulmonary disease, unspecified; I25.2 Old myocardial infarction; H54.8 Legal blindness, as defined in USA; Z91.040 Latex allergy status; Z20.822 Contact with and (suspected) exposure to COVID-19
CPT/HCPCS: 36415; 71045; 80048; 80053; 80061; 81003; 82550; 83735; 84484; 85025; 85379; 85610; 85730; 93005; 93306; 93458; 96374; 99285; C1893; G0378; J1644; J1650; J2250; J2270; J3010; J7040; J7050; Q9966; U0003

== ENCOUNTER 2021-11-11 17:27 | Emergency (ER) | payer OTHER ==
--- OUTSIDE RECORDS SUMMARY | 2021-11-11 17:33 | XMS REPORT | Continuity of Care Document ---
:1970 Author Organization [facility] t Address [address] [place] [address] Care Team Providers Name Role Phone Jyotsna Rylee Primary Care Physician LUIS DANIEL JOHNSON Attending Clinician Unavailable LUIS DANIEL JOHNSON Attending Clinician Unavailable Doctor Unassigned, [place] Attending Clinician Unavailable Ashish CIFUENTES, Shefali Attending Clinician Deirdre STALEY, Olivia Ross Attending Clinician Unavailable SHIRA BOSWELL Attending Clinician Unavailable Ajay CIFUENTES, Johnny Attending Clinician Rafaela Prasad MD Attending Clinician Lazara Farooq MD Attending Clinician Shira Weber Attending Clinician [phone] METCALF_PRISCILLA Attending Clinician Unavailable Tonie-Mbayo_A_AH Attending Clinician Unavailable Eulalio Cavazos DO Attending Clinician Jamison POWERS Susy Radha Attending Clinician LEAH Attending Clinician Unavailable RUFINO DUMONT Attending Clinician Unavailable TREVOR MULLEN Attending Clinician Unavailable SHIRA BOSWELL Admitting Clinician Unavailable Shira Weber Admitting Clinician [phone] METCALF_PRISCILLA Admitting Clinician Unavailable Tonie-Mbayo_A_AH Admitting Clinician Unavailable LEAH Admitting Clinician Unavailable RUFINO DUMONT Admitting Clinician Unavailable TREVOR MULLEN Admitting Clinician Unavailable Payers Payer Name Policy Type Policy Number Effective Date Expiration Date Radha payne [facility] DUAL [id number] 2021 COMP HMO D SNP 00:00:00 MEDICAID [facility] [id number] 2019 00:00:00 [employer]LLCARE [id number] 2019 HEALTHPLANS 00:00:00 (MEDICARE REPLACEMENT [place] [id number] [place] [facility] [id number] 2019 [place] (MEDICARE 00:00:00 REPLACEMENT/ADVANTA GE - HMO) 2 M [id number] 2018 00:00:00 Problems Condition Condition Condition Status Onset Resolution Last Treating Co mments Source Name Details Category Date Date Treatment Clinician Date Family Family Disease Active [facility] history of history of 09-20 [place] Other Other Disease Active [facility] hyperlipid hyperlipid 09-20 it y of emia emia 00:00: [place] [address] Medical Branch Primary Primary Disease Active Overview: Univ ers hypertensi hypertensi 09-12 Formattin ity of on on 00:00: g of this note Medical might be Branch different from the original. Added automatic ally from request for surgery [id number] Chest Chest Disease Active Overview: Univer s pain, pain, 6-23 Formattin ity of unspecifie unspecifie 00:00: g of this [place] d type d type 00 note Medical might be Branch different from the original. Added automatic ally from request for surgery [id number] NEVAREZ NEVAREZ Disease Active Overview: Univer s (dyspnea (dyspnea 6-23 Formattin ity of on on 00:00: g of this [place] exertion) exertion) 00 note Medi eloy might be Branch different from the original. 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[facility] depression Depression 4-18 Fa johan , single , Single 00:00: Practi c episode Episode 00 e Mental Mental Problem Active 2019-0 [place] disorder Disorder 9-15 da 00:00: [facility] [...] da right eye 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:00: Epis manager end[facility] Hyperlipid Hyperlipid Problem Active 2020-0 M [place] emia emia 9-15 da 00:00: [facility] Anxiety Anxiety Problem Active [place] disorder Disorder 9-15 da 00:00: [facility] Hyperchole Hyperchole Problem Active [facility] sterolemia sterolemia 4-15 Fa johan 00:00: Practic 00 e Chronic Chronic Problem Active [facility] back pain Back Pain 4-15 Fami ly 00:00: Practic 00 e Anxiety Anxiety Problem Active [place] 4-14 Family 00:00: Practic 00 e 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 4-14 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 Obstructiv 00:00: Pr actic e e 00 e pulmonary Pulmonary disease Disease Prediabete Prediabete Problem Active [facility] s s 4-14 Family 00:00: Practic 00 e Allergies, Adverse Reactions, Alerts Allergy Allergy Status Severity Reaction(s) Onset Inactive Treating Comm ents Source Name Type Date Date Clinician VENLAFAX DRUG Active Dizziness Unive rs INE INGREDI 7- ity of 00:00: [place] 00 Medical Branch Venlafax Propensi Active Dizziness Uni vers ine ty to 728 ity of adverse 00:00: [place] reaction 00 Medical s to Branch drug ADHESIVE DRUG Active Unknown-Cmnt 0 Un bam TAPE-DEEDEE 1-24 ity of ICONES 00:00: [place] 00 Medical Branch LATEX DRUG Active Unknown-Cmnt 2019-0 Univ ers INGREDI 1-24 ity of 00:00: [...] Medical s Branch No Known NA Active [facility] Allergie 6-10 Hospita s 10:48: l 08 [...] tobacco Snuff User Univer sity of use [facility] Exposure to 2021-09-09 2021-09-19 Not sure University SARS-CoV-2 (event) 00:00:00 20:13:00 [facility] Tobacco use and 2021-09-12 2021-09-12 User of Universit y of exposure 00:00:00 00:00:[address] [facility] Cigarettes smoked 2021-09-12 2021-09-12 Univers ity of current (pack per 00:00:00 00:00:00 [facility] ) - Reported [facility] Cigarette 2021-09-12 2021-09-12 University of pack-years 00:00:00 00:00:00 [facility] Sex Ass[birth year] At [birth year] Universit y of 00:00:00 00:00:00 [facility] Smoking Status Start Date Stop Date Source Heavy Tobacco Smoker [facility] Ex-smoker 2021-09-12 00:00:00 2021-09-12 00:00:00 Universi ty [facility] Medications Ordered Filled Start Stop Current Ordering Indication Dosage Frequency Signature Comments Components Source Medication Medication Date Date Medication? Clinician (SIG) Name Name pravastatin Yes 40mg 40 mg, Univ ers (PRAVACHOL) 09-21 Oral, QHS, it y of tablet 40 02:00: [place] mg 00 on Thu09/20/21 at [facility] 2100, Until Discontinu ed, Routine aspirin 81 Yes 81mg Take 81 mg U nivers mg EC 09-21 by mouth. ity of tablet 00:16: [place] 39 Medical Branch propranoloL Yes 10mg Take 10 mg Univers 10 mg 09-21 by mouth 2 ity of tablet 00:16: (two) [place] 39 times Medical daily. [facility] Cholecalcif Yes 1{tbl} Take 1 Un bam sunday, 7-02 tablet by ity of Vitamin D3, 00:16: mouth. [place] 50 [place] 39 Medical (2,000 Branch unit) capsule clonazePAM Yes 1mg Take 1 mg Un bam 1 mg tablet 7-02 by mouth 3 it y of 00:16: (three) [place] 39 times Medical daily. Branch aspirin 81 2-0 Yes 81mg Take 81 mg U nivers mg EC 7-02 by mouth. ity of tablet 00:16: [place] [address] Medical Branch propranoloL 2022-0 Yes 10mg Take 10 mg Univers 10 mg 7-02 by mouth 2 ity of tablet 00:16: (two) [place] 39 times Medical daily. Branch Cholecalcif 2-0 Yes 1{tbl} Take 1 Un bam sunday, 7-02 tablet by ity of Vitamin D3, 00:16: mouth. [place] 50 [place] 39 Medical (2,000 Branch unit) capsule clonazePAM 2022-0 Yes 1mg Take 1 mg Un bam 1 mg tablet 7-02 by mouth 3 it y of 00:16: (three) [place] 39 times Medical daily. Branch aspirin 81 2-0 Yes 81mg Take 81 mg U nivers mg EC 7-02 by mouth. ity of tablet 00:16: [place] [address] Medical Branch propranoloL 2022-0 Yes 10mg Take 10 mg Univers 10 mg 7-02 by mouth 2 ity of tablet 00:16: (two) [place] 39 times Medical daily. Branch Cholecalcif 2021-0 Yes 1{tbl} Take 1 Un bam sunday, 7-02 tablet by ity of Vitamin D3, 00:16: mouth. [place] 50 [place] 39 Medical (2,000 Branch unit) capsule clonazePAM 2022-0 Yes 1mg Take 1 mg Un bam 1 mg tablet 7-02 by mouth 3 it y of 00:16: (three) [place] 39 times Medical daily. Branch aspirin 81 2022-0 Yes 81mg Take 81 mg U nivers mg EC 7-02 by mouth. ity of tablet 00:16: [place] [address] Medical Branch propranoloL 2022-0 Yes 10mg Take 10 mg Univers 10 mg 7-02 by mouth 2 ity of tablet 00:16: (two) [place] 39 times Medical daily. Branch Cholecalcif 2022-0 Yes 1{tbl} Take 1 Un bam sunday, 7-02 tablet by ity of Vitamin D3, 00:16: mouth. [place] 50 [place] 39 Medical (2,000 Branch unit) capsule clonazePAM 2022-0 Yes 1mg Take 1 mg Un bam 1 mg tablet 7-02 by mouth 3 it y of 00:16: (three) [place] 39 times Medical daily. Branch aspirin 81 2-0 Yes 81mg Take 81 mg U nivers mg EC 7-02 by mouth. ity of tablet 00:16: [address] propranoloL 2-0 Yes 10mg Take 10 mg Univers 10 mg 7-02 by mouth 2 ity of tablet 00:16: (two) [place] 39 times Medical daily. Branch Cholecalcif 2021-0 Yes 1{tbl} Take 1 Un bam sunday, 7-02 tablet by ity of Vitamin D3, 00:16: mouth. [place] 50 [place] 39 Medical (2,000 Branch unit) capsule clonazePAM 2021-0 Yes 1mg Take 1 mg Un bam 1 mg tablet 7-02 by mouth 3 it y of 00:16: (three) [place] 39 times Medical daily. Branch aspirin 81 2021-0 Yes 81mg Take 81 mg U nivers mg EC 7-02 by mouth. ity of tablet 00:16: [address] propranoloL 2021-0 Yes 10mg Take 10 mg Univers 10 mg 7-02 by mouth 2 ity of tablet 00:16: (two) [place] 39 times Medical daily. Branch Cholecalcif 2021-0 Yes 1{tbl} Take 1 Un bam sunday, 7-02 tablet by ity of Vitamin D3, 00:16: mouth. [place] 50 [place] 39 Medical (2,000 Branch unit) capsule clonazePAM 2021-0 Yes 1mg Take 1 mg Un bam 1 mg tablet 7-02 by mouth 3 it y of 00:16: (three) [place] 39 times Medical daily. [facility] heparin Yes 3000U FOR Univers (1,000 7- REBOLUSING ity of unit/mL, 10 23:16: , Starting [place] mL vial) 40 on Thu Medical for 09/20/21 at [facility] Rebolusing 1816, Until Discontinu ed, Routine
Dosing based on aPPT testing parameters (refer to continuous heparin drip order).
heparin 2021- Yes 12U/kg/ 12 Univers 25,000 7-01 h Units/kg/h ity of Units/250 23:16: r [...] Rang e, Dosing and Testing: &nbs p;FOR [facility], [facility] ONLY &nbs p; - aPTT < 35: [...] aPTT Q12H once therapeuti c levels are reached.&a mp;nbsp;&n bsp; ____ &nbs p; FO [facility] ONLY - aPTT < 40: & amp;nbsp;B olus 5000 units, increase rate 300 units/hr&n bsp; [...] INITIAL BOLUS OR INITIAL INFUSION RATE.
sulfur 2021- No [id number] 5mL 5 mL, Unive rs hexafluorid 09-20 Intravenou i ty of e microsphr 21:30: 21:30 s, ONCE, 1 [place] (LUMASON) 00 :00 dose, On Medica l injection 5 Thu09/20/21 Br anch mL at 1630, Routine
administrative appeals tribunal member approving Restricted medication : ROSI CHIRINOS tiotropium Yes 18ug 18 mcg, Univ ers (SPIRIVA) 09-20 Inhalation ity of inhalation 14:00: , DAILY, [place] as 18 mcg 00 First dose Medical on Thu09/20/21 at 0900, Until Discontinu ed, Routine aspirin EC Yes 81mg 81 mg, Unive rs tablet 81 09-20 Oral, ity of mg 14:00: DAILY, First dose Medical on Thu Branch 09/20/21 at 0900, Until Discontinu ed, Routine enoxaparin No 40mg 40 mg, [place] [facility] ers (LOVENOX) 09-20 Subcutaneo ity of injection 14:00: 23:18 us, DAILY, [place] 40 mg 00 :05 First dose Medical on Thu09/20/21 at 0900, Until Discontinu ed, Routine propranoloL Yes 10mg 10 mg, [place] [facility] ers (INDERAL) 09-20 Oral, BID, ity of tablet 10 13:00: First dose [place] mg Thu Medical 09/20/21 at Branch 0800, Until Discontinu ed, Routine clonazePAM Yes 1mg 1 mg, [facility] s (KLONOPIN) 09-20 Oral, TID, ity of tablet 1 mg 13:00: First dose on Thu Medical 09/20/21 at Branch 0800, Until Discontinu ed, Routine ipratropium Yes 3mL 3 mL, [facility] rs -albuteroL 09-20 Inhalation ity of (DUONEB) 05:36: , QIDPRN, [place] 0.5 mg-3 09 Starting Medical mg(2.5 mg on Thu base)/3 mL 09/20/21 at nebulizer 0036, solution 3 Until mL Discontinu ed, Routine, Wheezing, Shortness of Breath, Bronchospa sm, Chest tightness ondansetron Yes 4mg 4 mg, Slow Univers (ZOFRAN 09-20 IV Push, ity of (PF)) 03:40: Q6HPRN, [place] injection 4 41 Starting Medi eloy mg on Suj[place] Branch 09/19/21 at 2240, Until Discontinu ed, Routine, Nausea and Vomiting (N/V) acetaminoph Yes 650mg 650 mg, Un bam en 09-20 Oral, ity of (TYLENOL) 03:40: Q6HPRN, [place] tablet 650 36 Starting Medic al mg on [place] Branch 09/19/21 at 2240, Until Discontinu ed, Routine, Pain (scale 1-3) traMADoL 2021- No 50mg 50 mg, Univer s (ULTRAM) 09-20 Oral, ity of tablet 50 03:40: 20:25 Q8HPRN, [place] mg 33 :46 Starting Medical on [facility] Branch 09/19/21 at 2240, Until Thu09/20/21 at 1525, Routine, Pain (scale 4-6) albuterol Yes 2{puff} 2 Puff, Un bam (VENTOLIN) 09-20 Inhalation ity of inhaler 2 03:38: , Q6HPRN, [place] as Puff 21 Starting Medical on [facility] 09/19/21 at 2238, Until Discontinu ed, Routine, Wheezing, Shortness of Breath nitroglycer Yes .4mg 0.4 mg, Uni vers in 09-20 Sublingual ity of (NITROSTAT) 03:36: , Q5MIN [place] as sublingual 47 PRN, Medical tablet 0.4 Starting Branc h mg on [facility] 09/19/21 at 2236, Until Discontinu ed, Routine, Chest pain morpHINE ( Yes 4mg 4 mg, Slow Univers mg/mL) 09-20 IV Push, ity of injection 4 03:36: Q4HPRN, [place] as mg 18 Starting Medical on [facility] 09/19/21 at 2236, Until Discontinu ed, Routine, Pain (scale 7-10), Chest pain nitroglycer 2021- No .4mg 0.4 mg, Un bam in 09-20 Sublingual ity of (NITROSTAT) 02:30: 01:48 , ONCE, 1 [place] sublingual 00 :00 dose, On Medic al tablet 0.4 [facility] Branch mg 09/19/21 at 2130, REINA ondansetron 2021- No 4mg 4 mg, Slow Univers (ZOFRAN 09-20 IV Push, ity of (PF)) 02:30: 01:47 ONCE, 1 [place] injection 4 00 :00 dose, On Medi eloy mg [facility] Branch 09/19/21 at 2130, REINA morpHINE (4 0 2021- No 4mg 4 mg, Slow Univers mg/mL) 09-20 IV Push, ity of injection 4 02:30: 01:48 ONCE, 1 [place] mg 00 :00 dose, On Medical [place] Branch 09/19/21 at 2130, REINA aspirin 81 2021-0 Yes 81mg Take 81 mg U nivers mg EC 6-30 by mouth. ity of tablet 22:41: [place] 03 Medical Branch propranoloL 2021-0 Yes 10mg Take 10 mg Univers 10 mg 6-30 by mouth 2 ity of tablet 22:41: (two) [place] [address] times Medical daily. Branch Cholecalcif 0 Yes 1{tbl} Take 1 Un bam sunday, 6-30 tablet by ity of Vitamin D3, 22:41: mouth. [facility] s 50 mcg Medical (2,000 Branch unit) capsule clonazePAM 0 Yes 1mg Take 1 mg Un bam 1 mg tablet 6-30 by mouth 3 it y of 22:41: (three) [place] [address] times Medical daily. Branch citalopram 2021-0 2021- No 40mg Take 40 mg Univers 40 mg 6-30 06-30 by mouth ity of tablet 22:41: 00:00 daily. [place] 03 :00 Medical Branch citalopram 2021-0 Yes 40mg Take 40 mg U nivers 40 mg 6-23 by mouth ity of tablet 08:13: daily. [place] [address] Medical Branch clonazePAM 2021-0 Yes 1mg Take 1 mg Un bam 1 mg tablet 6-23 by mouth 3 it y of 08:13: (three) [place] [address] times Medical daily. Branch citalopram 2021-0 Yes 40mg Take 40 mg U nivers 40 mg 6-23 by mouth ity of tablet 08:13: daily. [place] [address] Medical Branch clonazePAM 2021-0 Yes 1mg Take 1 mg Un bam 1 mg tablet 6-23 by mouth 3 it y of 08:13: (three) [place] [address] times Medical daily. Branch pravastatin 2021-0 Yes 40mg Take 1 Univ ers 40 mg 6-23 tablet by ity of tablet 00:00: mouth at [place] 00 bedtime. Medical Branch nitroglycer 2021-[id number] 1 Univers in 0.4 mg 6-23 tablet ity of sublingual 00:00: under the [place] tablet 00 tongue Medical every 5 Branch (five) minutes as needed for Chest pain. pravastatin 2022-0 Yes 40mg Take 1 Univ ers 40 mg 6-23 tablet by ity of tablet 00:00: mouth at [place] 00 bedtime. Medical Branch nitroglycer 2022-[id number] 1 Univers in 0.4 mg 6-23 tablet ity of sublingual 00:00: under the [place] tablet 00 tongue Medical every 5 Branch (five) minutes as needed for Chest pain. pravastatin 2022-0 Yes 40mg Take 1 Univ ers 40 mg 6-23 tablet by ity of tablet 00:00: mouth at [place] 00 bedtime. Medical Branch nitroglycer 2022-[id number] 1 Univers in 0.4 mg 6-23 tablet ity of sublingual 00:00: under the [place] tablet 00 tongue Medical every 5 Branch (five) minutes as needed for Chest pain. pravastatin 2022-0 Yes 40mg Take 1 Univ ers 40 mg 6-23 tablet by ity of tablet 00:00: mouth at [place] 00 bedtime. Medical Branch nitroglycer 2022-[id number] 1 Univers in 0.4 mg 6-23 tablet ity of sublingual 00:00: under the [place] tablet 00 tongue Medical every 5 Branch (five) minutes as needed for Chest pain. pravastatin 2022-0 Yes 40mg Take 1 Univ ers 40 mg 6-23 tablet by ity of tablet 00:00: mouth at [place] 00 bedtime. Medical Branch nitroglycer 2022-[id number] 1 Univers in 0.4 mg 6-23 tablet ity of sublingual 00:00: under the [place] tablet 00 tongue Medical every 5 Branch (five) minutes as needed for Chest pain. pravastatin 2022-0 Yes 40mg Take 1 Univ ers 40 mg 6-23 tablet by ity of tablet 00:00: mouth at [place] 00 bedtime. Medical Branch nitroglycer 2022-[id number] 1 Univers in 0.4 mg 6-23 tablet ity of sublingual 00:00: under the [place] tablet 00 tongue Medical every 5 Branch (five) minutes as needed for Chest pain. pravastatin 2022-0 Yes 40mg Take 1 Univ ers 40 mg 6-23 tablet by ity of tablet 00:00: mouth at [place] 00 bedtime. Medical Branch nitroglycer 2021-[id number] 1 Univers in 0.4 mg 6-23 tablet ity of sublingual 00:00: under the [place] tablet 00 tongue Medical every 5 Branch (five) minutes as needed for Chest pain. pravastatin 2021-0 Yes 40mg Take 1 Univ ers 40 mg 6-23 tablet by ity of tablet 00:00: mouth at [place] [address] bedtime. Medical Branch nitroglycer [id number] 1 Univers in 0.4 mg 6-23 tablet ity of sublingual 00:00: under the [place] tablet 00 tongue Medical every 5 Branch (five) minutes as needed for Chest pain. pravastatin 2021-0 Yes 40mg Take 1 Univ ers 40 mg 6-23 tablet by ity of tablet 00:00: mouth at [place] [address] bedtime. Medical Branch nitroglycer [id number] 1 Univers in 0.4 mg 6-23 tablet ity of sublingual 00:00: under the [place] tablet 00 tongue Medical every 5 Branch (five) minutes as needed for Chest pain. tiotropium 0 Yes [id number] 18ug Inhale 1 Univers 18 mcg 5-13 capsule ity of inhalation 00:00: daily. [place] Medical Branch albuterol 0 Yes [id number] 2{puff} Inhale 2 Univers 90 5-13 Puffs ity of mcg/actuati 00:00: every 6 [place] as on inhaler 00 (six) Medical hours as Branch needed for Wheezing or Shortness of Breath. tiotropium 2021-0 Yes [id number] 18ug Inhale 1 Univers 18 mcg 5-13 capsule ity of inhalation 00:00: daily. [place] Medical Branch albuterol 2021-0 Yes [id number] 2{puff} Inhale 2 Univers 90 5-13 Puffs ity of mcg/actuati 00:00: every 6 [place] on inhaler 00 (six) Medical hours as Branch needed for Wheezing or Shortness of Breath. tiotropium 2021-0 Yes [id number] 18ug Inhale 1 Univers 18 mcg 5-13 capsule ity of inhalation 00:00: daily. [place] Medical Branch albuterol 2022-0 Yes [id number] 2{puff} Inhale 2 Univers 90 5-13 Puffs ity of mcg/actuati 00:00: every 6 [place] on inhaler 00 (six) Medical hours as Branch needed for Wheezing or Shortness of Breath. tiotropium 0 Yes [id number] 18ug Inhale 1 Univers 18 mcg 5-13 capsule ity of inhalation 00:00: daily. [facility] Branch albuterol 0 Yes [id number] 2{puff} Inhale 2 Univers 90 5-13 Puffs ity of mcg/actuati 00:00: every 6 [place] on inhaler 00 (six) Medical hours as Branch needed for Wheezing or Shortness of Breath. tiotropium 0 Yes [id number] 18ug Inhale 1 Univers 18 mcg 5-13 capsule ity of inhalation 00:00: daily. [place] [facility] Branch albuterol Yes [id number] 2{puff} Inhale 2 Univers 90 5-13 Puffs ity of mcg/actuati 00:00: every 6 [place] as on inhaler 00 (six) Medical hours as Branch needed for Wheezing or Shortness of Breath. tiotropium Yes [id number] 18ug Inhale 1 Univers 18 mcg 5-13 capsule ity of inhalation 00:00: daily. [place] [facility] Branch albuterol 0 Yes [id number] 2{puff} Inhale 2 Univers 90 5-13 Puffs ity of mcg/actuati 00:00: every 6 [place] as on inhaler 00 (six) Medical hours as Branch needed for Wheezing or Shortness of Breath. tiotropium 0 Yes [id number] 18ug Inhale 1 Univers 18 mcg 5-13 capsule ity of inhalation 00:00: daily. [place] [facility] Branch albuterol 0 Yes [id number] 2{puff} Inhale 2 Univers 90 5-13 Puffs ity of mcg/actuati 00:00: every 6 [place] as on inhaler 00 (six) Medical hours as Branch needed for Wheezing or Shortness of Breath. tiotropium 0 Yes [id number] 18ug Inhale 1 Univers 18 mcg 5-13 capsule ity of inhalation 00:00: daily. [place] [facility] Branch albuterol Yes [id number] 2{puff} Inhale 2 Univers 90 5-13 Puffs ity of mcg/actuati 00:00: every 6 [place] as on inhaler 00 (six) Medical hours as Branch needed for Wheezing or Shortness of Breath. tiotropium Yes [id number] 18ug Inhale 1 Univers 18 mcg 5-13 capsule ity of inhalation 00:00: daily. [place] Medical Branch albuterol Yes [id number] 2{puff} Inhale 2 Univers 90 5-13 Puffs ity of mcg/actuati 00:00: every 6 [place] as on inhaler 00 (six) Medical hours as Branch needed for Wheezing or Shortness of Breath. ibuprofen 2020-03- No [id number] 800mg Take 1 Univers 800 mg 05-01 9100 tablet by ity of tablet 00:00: 00:00 mouth [place] 00 :00 every 8 Medical (eight) Branch hours as needed for Pain (scale 4-6). ibuprofen 2020-03- No [id number] 600mg Take 1 Univers 600 mg 009-12 30832 tablet by ity of tablet 00:00: 00:00 [...] 03 Medical (2,000 Branch unit) capsule ALPRAZolam 2021- No .25mg Take 0.25 Univers 0.25 mg 7- 06-23 mg by ity of tablet 00:00: 00:00 mouth. [place] 00 :00 [facility] aspirin 81 2020-0 Yes 81mg Take 81 mg U nivers mg EC 8-31 by mouth. ity of tablet 10:35: [place] 36 [facility] aspirin 81 2020-0 Yes 81mg Take 81 mg U nivers mg EC 8-31 by mouth. ity of tablet 10:35: [address] acetaminoph acetaminoph No acetaminop [place] en [...] eye drops eye drops eye drops [facility] citalopram citalopram No citalopram [place] 20 mg 20 mg 20 mg da tablet tablet tablet [facility] cyclobenzap cyclobenzap No cyclobenza [place] rine 10 mg rine 10 mg charito 10 da tablet tablet mg tablet [facility] cyclobenzap cyclobenzap No cyclobenza [place] rine 5 mg rine 5 mg charito 5 mg da tablet tablet tablet [facility] diclofenac diclofenac No diclofenac [place] 1 % topical 1 % topical 1 % d a gel gel topical [facility] gabapentin gabapentin No gabapentin [place] 600 mg 600 mg 600 mg da tablet tablet tablet [facility] ibuprofen ibuprofen No ibuprofen [place] 600 mg 600 mg 600 mg da tablet tablet tablet [facility] ibuprofen ibuprofen No ibuprofen [place] 800 mg 800 mg 800 mg da tablet tablet tablet [facility] ketorolac ketorolac No ketorolac [place] 0.5 % eye 0.5 % eye 0.5 % eye da drops drops drops [facility] naproxen naproxen No naproxen [place] 500 mg 500 mg 500 mg da tablet tablet tablet [facility] ondansetron ondansetron No [...] 20 mg da tablet tablet tablet [facility] citalopram citalopram No 1 Q1D citalopram [facility] 20 mg 20 mg 20 mg Family tablet Take tablet Take tablet Practic 1 tablet 1 tablet Take 1 e every day every day tablet by oral by oral every day route in route in by oral the the route in morning. morning. the morning. propranolol propranolol No propranolo [place] 10 mg 10 mg l 10 mg da tablet tablet tablet [facility] h Program gabapentin gabapentin No 1 TID gabapentin [facility] 600 mg 600 mg 600 mg Family tablet Take tablet Take tablet Practic 1 tablet 3 1 tablet 3 Take 1 e times a day times a day tablet 3 by oral by oral times a route. route. day by oral route. risperidone risperidone No risperidon [place] 1 mg tablet 1 mg tablet e 1 mg da tablet [facility] Program naproxen naproxen No 1 BID naproxen Lea daniel 500 mg 500 mg 500 mg Family tablet Take tablet Take tablet Practic 1 tablet 1 tablet Take 1 e twice a day twice a day tablet by oral by oral twice a route as route as day by needed. needed. oral route as needed. risperidone risperidone No risperidon [place] 4 mg tablet 4 mg tablet e 4 mg da tablet [facility] Program ProAir HFA ProAir HFA No 2puff(s Q4H ProAir HFA [facility] 90 90 ) 90 Family mcg/actuati mcg/actuati mcg/actuat Practic on aerosol on aerosol ion e inhaler inhaler aerosol Inhale 2 Inhale 2 inhaler puffs every puffs every Inhale 2 4 hours by 4 hours by puffs inhalation inhalation every 4 route as route as hours by needed for needed for inhalation 30 days. 30 days. route as needed for 30 days. tramadol tramadol No tramadol [place] 37.5 37.5 37.5 da mg-acetamin mg-acetamin mg-acetami [facility] ophen 325 ophen 325 nophen 325 al mg tablet mg tablet mg tablet [facility] propranolol propranolol No 1 BID propranolo [place] 10 mg 10 mg l 10 mg Family tablet Take tablet Take tablet Practic 1 tablet 1 tablet Take 1 e twice a day twice a day tablet by oral by oral twice a route. route. day by oral route. tramadol 50 tramadol 50 No tramadol [place] mg tablet mg tablet 50 mg da TK 1 T PO Q TK 1 T PO Q tablet TK [facility] 8 H PRN 8 H PRN 1 T PO Q 8 al H PRN Health Outreac h Program risperidone risperidone No 1 BID risperidon [place] 1 mg tablet 1 mg tablet e 1 mg Family Take 1 Take 1 tablet Practic tablet tablet Take 1 e twice a day twice a day tablet by oral by oral twice a route at route at day by bedtime. bedtime. oral route at bedtime. venlafaxine venlafaxine No venlafaxin [place] ER 150 mg ER 150 mg e ER 150 d a capsule,ext capsule,ext mg E piscop ended ended capsule,ex al release 24 release 24 tended H ealth hr hr release 24 Outreac hr h Program atorvastati atorvastati No 1 Q1D atorvastat Dionne n 10 mg n 10 mg in 10 mg Famil y tablet Take tablet Take tablet Practic 1 tablet 1 tablet Take 1 e every day every day tablet by oral by oral every day route in route in by oral the the route in morning. morning. the morning. Immunizations Ordered Filled Immunization Date Status Comments [facility] e Immunization Name Name SARS-COV-2 COVID-19 2020-08-06 Completed Unive rsity of MODERNA VACCINE 00:00:00 [facility] SARS-COV-2 COVID-19 2020-08-06 Completed Unive rsity of MODERNA VACCINE 00:00:00 [facility] SARS-COV-2 COVID-19 2020-08-06 Completed Unive rsity of MODERNA VACCINE 00:00:00 [facility] SARS-COV-2 COVID-19 2020-08-06 Completed Unive rsity of MODERNA VACCINE 00:00:00 [facility] SARS-COV-2 COVID-19 2020-08-06 Completed Unive rsity of MODERNA VACCINE 00:00:00 [facility] SARS-COV-2 COVID-19 2020-08-06 Completed Unive rsity of MODERNA VACCINE 00:00:00 [facility] SARS-COV-2 COVID-19 2020-08-06 Completed Unive rsity of MODERNA VACCINE 00:00:00 [facility] SARS-COV-2 COVID-19 2020-08-06 Completed Unive rsity of MODERNA VACCINE 00:00:00 [facility] SARS-COV-2 COVID-19 2020-08-06 Completed Unive rsity of MODERNA VACCINE 00:00:00 [facility] SARS-COV-2 COVID-19 2020-07-09 Completed Unive rsity of MODERNA VACCINE 00:00:00 [facility] SARS-COV-2 COVID-19 2020-07-09 Completed Unive rsity of MODERNA VACCINE 00:00:00 [facility] SARS-COV-2 COVID-19 2020-07-09 Completed Unive rsity of MODERNA VACCINE 00:00:00 [facility] SARS-COV-2 COVID-19 2020-07-09 Completed Unive rsity of MODERNA VACCINE 00:00:00 [facility] SARS-COV-2 COVID-19 2020-07-09 Completed Unive rsity of MODERNA VACCINE 00:00:00 [facility] SARS-COV-2 COVID-19 2020-07-09 Completed Unive rsity of MODERNA VACCINE 00:00:00 [facility] SARS-COV-2 COVID-19 2020-07-09 Completed Unive rsity of MODERNA VACCINE 00:00:00 [facility] SARS-COV-2 COVID-19 2020-07-09 Completed Unive rsity of MODERNA VACCINE 00:00:00 [facility] SARS-COV-2 COVID-19 2020-07-09 Completed Unive rsity of MODERNA VACCINE 00:00:00 [facility] influenza, influenza, 2018-11-21 Completed [facility] Family injectable, injectable, 00:00:00 Practice quadrivalent quadrivalent Vital Signs Vital Name Observation Time Observation Value Comments Source Systolic blood 2021-09-20 21:09:00 101 mm[Hg] Univer sity of pressure [facility] Diastolic blood 2021-09-20 21:09:00 68 mm[Hg] Unive rsity of pressure [facility] Heart rate 2021-09-20 21:09:00 52 /min [facility] Body temperature 2021-09-20 21:09:00 36.61 [facility] in 2021-09-20 21:09:00 97 /min University of Arterial blood by [facility] Pulse oximetry Branch Respiratory rate 2021-09-20 15:15:00 18 /min [facility] ersity [facility] Body weight 2021-09-20 08:38:00 67.994 kg [facility] [place] [facility] [place] BMI 2021-09-20 08:38:00 21.51 kg/m2 Universi ty of [facility] Body height 2021-09-20 03:18:00 177.8 cm Universi ty of [facility] Systolic blood 2021-09-12 13:16:00 104 mm[Hg] Univer sity of pressure [facility] Diastolic blood 2021-09-12 13:16:00 76 mm[Hg] Unive rsity of pressure [facility] Heart rate 2021-09-12 13:16:00 74 /min Universi ty of [facility] Body temperature 2021-09-12 13:16:00 36.72 [facility] Respiratory rate 2021-09-12 13:16:00 16 /min [facility] ersity of [facility] Body height 2021-09-12 13:16:00 177.8 cm [facility] [place] [facility] [place] Body weight 2021-09-12 13:16:00 69.083 kg Universi ty of [facility] BMI 2021-09-12 13:16:00 21.85 kg/m2 Universi ty [facility] Oxygen saturation in 2021-09-12 13:16:00 97 /min [facility] of Arterial blood by [facility] Pulse oximetry Branch BMI (Body Mass 2020-07-05 00:00:00 22.2 kg/m2 [facility] Practice Body Weight 2020-07-05 00:00:00 155 [lb_av] [facility] Practice Height 2020-07-05 00:00:00 70 [in_i] [facility] Height 2019-07-05 00:00:00 70 [in_i] [facility] Practice BMI (Body Mass 2019-07-05 00:00:00 21.5 kg/m2 [facility] Practice Body Weight 2019-07-05 00:00:00 150 [lb_av] [facility] Practice Procedures Procedure Date / Time Performing Clinician Source Performed AUTHORIZATION FOR RELEASE 2021-10-01 05:01:00 Doctor Unassigned, [facility] [place] [facility] TROPONIN I 2021-09-20 21:26:00 Jesi [facility] THYROID STIMULATING 2021-09-20 21:26:00 [facility] PROTHROMBIN TIME / INR 2021-09-20 21:26:00 Jesi [facility] TRANSTHORACIC ECHO (TTE) 2021-09-20 21:17:00 Jesi [facility] COMPLETE W/ CONTRAST Medical [facility] POCT GLUCOSE (AUTOMATED) 2021-09-20 17:08:00 Shanice [facility] PHOSPHORUS 2021-09-20 11:17:00 Jesi [facility] MAGNESIUM 2021-09-20 11:17:00 Jesi [facility] TROPONIN I 2021-09-20 11:17:00 [facility] LIP[facility] PANEL ([id number])(TOTAL 2021-09-20 11:17:00 Shefali Hinojosa [facility] CHOLESTEROL, Medical Branch TRIGLYCERIDES, HDL) TROPONIN I 2021-09-20 05:55:00 Shanice [facility] BASIC METABOLIC PANEL 2021-09-20 05:55:00 Shanice [facility] (NA, K, CL, CO2, GLUCOSE, Medica l Branch BUN, CREATININE, CA) CBC WITH DIFF 2021-09-20 05:55:00 Shanice [facility] GLYCOSYLATED HEMOGLOBIN 2021-09-20 05:55:00 Jesi [facility] (A1C) Medical Branch COVID-19 (ID NOW RAPID 2021-09-20 01:47:00 Johnny Moss [facility] TESTING) Medical Branch LAB ONLY COVID 2021-09-20 01:47:00 Johnny Moss [facility] INTERPRETATION [facility] URINE DRUG (IMMUNOASSAY) 2021-09-20 01:47:00 Johnny Moss [facility] - COMPREHENSIVE DRUG Medical [facility] SCREEN W/O REFLEX XR CHEST 1 VW 2021-09-20 01:38:00 Johnny Moss [facility] LIPASE 2021-09-20 01:18:[address] [facility] TROPONIN I 2021-09-20 01:18:00 Johnny Moss [facility] COMP. METABOLIC PANEL 2021-09-20 01:18:00 Johnny oMss [facility] ([id number]) Medical [place] CBC WITH DIFF 2021-09-20 01:18:00 Johnny Moss [facility] PROTHROMBIN TIME / INR 2021-09-20 01:18:00 Johnny Moss [facility] ACTIVATED PARTIAL 2021-09-20 01:18:00 Ajay Critical access hospital THRMPLAS [facility] N-TERMINAL PRO-BNP 2021-09-20 01:18:00 Johnny Moss [facility] HB ECG ROUTINE & RHYTHM 2021-09-20 01:15:31 Ajay [facility] NOTICE OF PRIVACY 2021-09-20 01:08:48 Doctor Unassigned, [facility] PRACTICES [place] [facility] [place] CONSENT/REFUSAL FOR 2021-09-20 01:02:38 Doctor Nata, [facility] DIAGNOSIS AND TREATMENT [facility] INSURANCE CORRESPONDENCE 2021-09-16 05:01:00 Doctor Nata, [facility] HB ECG ROUTINE & RHYTHM 2021-09-12 13:18:19 Shefali Hinojosa [facility] Extraction of Cataract [facility] Appendectomy [facility] Appendectomy [facility] Hernia Repair W/mesh [facility] Plan of Care Planned Activity Planned Date Details Comments Source Instructions [facility] Encounters Start End Encounter Admission Attending Care Care Encounter Source Date/Time Date/Time Type Type Clinicians Facility Department ID 2022-02-07 2022-02-07 Outpatient R LUIS DANIEL JOHNSON [facility] [id number] Univers 09:00:00 09:00:00 LUIS DANIEL JOHNSON i [facility] 2021-10-01 2021-10-01 Orders Doctor BLANK [id number] Univers 00:00:00 00:00:00 Only Unassigned, LAURYN [id number] ity of [place] [facility] 4.2.7.2.686 Kishore as [id number] [facility] 009 Branch 2021-09-24 2021-09-24 Telephone [facility] [id number] Univers 00:00:00 00:00:00 Qiacristelajun [place] [id number] ity of [place] [id number] Vt dical NAL 9 [facility] 2021-09-24 2021-09-24 Telephone [facility] [id number] Univers 00:00:00 00:00:00 Shefali MART[place] [id number] ity [place] [id number] Vt dicga NAL 9 [facility] 2021-09-24 2021-09-24 Transition SYLVESTER [place] 1.2.840.114 [id number] Univers 00:00:00 00:00:00 of Care Olivia Ross NAG[place] [id number] i ty of [place] [id number] [facility] 403 Branch 2021-09-19 2021-09-21 Outpatient [facility] [id number] Univers 20:07:00 00:16:00 SHIRA ity of [facility] 2021-09-19 2021-09-21 [facility] Johnny Moss [id number] Univers 20:07:00 00:16:00 Encounter Rafaela Prasad LAURYN [id number] ity of [facility] [id number] [facility] [id number] [facility] 097 [place] 2021-09-19 2021-09-19 Telephone [facility] [id number] Univers 00:00:00 00:00:00 Qiacristelajun PR[place] [id number] ity [place] [id number] Vt dical NAL 059 [facility] 2021-09-17 2021-09-17 Patient [facility], [facility] [id number] Univers 00:00:00 00:00:00 Secure Msg Shefali MORRISON [id number] ity [place] [id number] Vt dicga NAL 9 [facility] 2021-09-16 2021-09-16 Orders Doctor ROSAMARIA [id number] Univers 00:00:00 00:00:00 Only Unassigned, LAURYN [id number] ity of [place] [facility] 4.2.7.2.686 Kishore as [id number] [address] 2021-09-12 2021-09-12 Office [facility], [facility] 1.2.840.114 [id number] Univers 08:40:00 08:40:43 Visit Shefali PR[place] [id number] it[place] [id number] [facility] NAL 9 [facility] 2021-07-17 2021-07-17 Outpatient METCALF_PRI [facility] [address] [facility] 11:54:00 11:54:00 SCILLA 0427 da [facility] 2020-07-25 2020-07-25 Outpatient Tonie-Mbradhao VFP [facility] [address] [place] [address] 05:42:00 05:42:00 _A_AH 14184 Family Practic e 2020-07-09 2020-07-09 Outpatient Tonie-Mbayo VFP [facility] [address] [place] [address] 09:06:00 09:06:00 _A_AH 35109 Family Practic e 2020-07-05 2020-07-05 Yaa P [place] - [id number] V illage 00:00:00 00:00:00 [facility] Fam jonathon coleman, CLERK MANAGER: Medical - Practi c [address] Bri[address] [email or web address], [facility] [address] [place] [address] , Ph. 2020-06-12 2020-06-12 [facility] 1.2.840.114 [id number] 00:00:00 00:00:00 Outreach Eulalio JEFFERS 350.1.13.10 [facility] 4.2.7.2.686 [facility] [id number] 2020-05-23 2020-05-23 Orders Doctor BLANK 1.2.840.114 [id number] 00:00:00 00:00:00 Only Unassigned, LAURYN 350.1.13.10 [place] [facility] 4.2.7.2.686 [id number] 009 2020-05-13 2020-05-13 [facility] [id number] 11:38:00 12:32:00 Johnyn Morrison 350.1.13.10 [place] 4.2.7.2.686 [place] [id number] 084 2020-05-13 2020-05-13 Orders Doctor BLANK 1.2.840.114 [id number] 00:00:00 00:00:00 Only Unassigned, LAURYN 350.1.13.10 [place] [facility] 4.2.7.2.686 [id number] 009 2020-02-20 2020-02-20 Orders Doctor BLANK 1.2.840.114 [id number] 00:00:00 00:00:00 Only UnassignedLAURYN 350.1.13.10 [place] [facility] 4.2.7.2.686 [id number] 009 2020-02-04 2020-02-04 Emergency [facility] [id number] 12:43:00 13:48:00 Susy Morrison 350.1.13.10 [place] 4.2.7.2.686 [place] [id number] 2019-12-13 2019-12-13 [facility] 70 [place] 05:32:00 05:32:00 ADDIS 0922 da [facility] Program 2019-12-06 2019-12-06 Outpatient AMBREEN_KAREN [facility] 702 [place] 05:36:00 05:36:00 HANA 0915 da [facility] 2019-12-06 2019-12-06 Nell [facility] [place] - [id number] [place] 00:00:00 00:00:00 Nahun Streeter MD: [address], [facility] a l [place], [place] [facility] [address] [facility] , Ph. h ([phone]) Program 2019-11-22 2019-11-22 Telephone [facility] [id number] 00:00:00 00:00:00 Shefali [place] 350.1.13.10 [place] 4.2.7.2.686 Professmela [id number] [facility] 2019-11-21 2019-11-21 Office [facility] 1.2.840.114 [id number] 10:05:29 10:53:34 Visit Osielalvin [place] 350.1.13.10 [place] 4.2.7.2.686 Professio [id number] [address] 2019-11-18 2019-11-18 Orders Doctor ROSAMARIA 1.2.840.114 [id number] 00:00:00 00:00:00 Only Unassigned, LAURYN 350.1.13.10 [place] [facility] 4.2.7.2.686 [id number] 009 2019-08-12 2019-08-12 Outpatient Tonie-Mbayo VFP [facility]FP [id number] [facility] 11:11:00 11:11:00 _A_AH 51459 Family Practic e 2019-07-20 2019-07-20 Outpatient Tonie-Mbayo VFP [facility] [id number] [facility] 09:28:00 09:28:00 _A_AH 96678 Family Practic e 2019-07-05 2019-07-05 Outpatient Tonie-Mbayo [facility]FP [facility] [id number] [facility] 09:42:00 09:42:00 _A_AH 99732 Family Practic e 2019-07-05 2019-07-05 Yaa VFP [place] - [id number] V illage 00:00:00 00:00:00 TonieJacki [facility] Fam jonathon coleman, CLERK MANAGER: Darius - Pracrayo casiano [address] [email or web address], [address], [place] [address] , Ph. 2019-06-22 2019-06-22 Outpatient Paolo [facility] [phone] [facility] 10:56:00 10:56:00 _A_ 95862 Family Practic e 2019-02-25 2019-03-22 Outpatient 3 DENIS DUMONT OOS 1207 21255- Islam 14:12:00 15:28:00 RUFINO [id number] Hospi ta l (Beaumo nt) Results Test Description Test Time Test Comments Results Result Comments Source THYROID STIMULATING HORMONE 2021-09-21 03:09:27 Test Item Value Reference Range Interpretation Comme nts TSH (test code = 8086066693) See_Comment Biotin has been reported to cause a negative bias , interpret results relativ e to patient's use of biotin. [Aut omated message] The system [employer] generated this result transmit judit reference range: 0.45 - 4 .70 mIU/L. The reference range was not used to interpret this result as normal/abnormal . Lab Interpretation (test code = Normal 03797-2) [facility] CenterGLYCOSYLATED HEMOGLOBIN (A1C)2021-09-21 00:17:30 Test Item Value Reference Range Interpretation Comments HGB A1C (test code = 5.1 % 4.0-5.7 4548-4) LA (test code = LA) Reference RangesNormal: <5.7%Prediabetes: 5.7 - 6.4%Diabetes: > 6.5% Lab Interpretation (test Normal code = 17224-4) [facility] CenterProthrombin Time / [id number] 22:31:02 Test Item Value Reference Range Interpretation Comments PROTIME PATIENT (test See_Comment [Auto mated message] code = 5964-2) The system [employer] generated this result transmitted ref erence range: 10.1 - 1 2.6 Seconds. The re ference range was not u sed to interpret this result as normal/abnor mal. INR (test code = 6301-6) Nor mal INR <1.1; Warfarin Therap eutic range 2.0 to 3. 0 or 2.5 to 3.5, dep ending upon the indica tions. Lab Interpretation (test Normal code = 94183-1) [facility] CenterTROPONIN [id number] 22:21:58 Test Item Value Reference Interpretation Comments Range TROPONIN I (test 0.009 ng/mL See_Comment [Automated code = 0420710201) message] The system which generated this result [...] biotin. Lab Interpretation Normal (test code = 68070-2) [facility] CenterTransthoracic echo (TTE)2021-09-20 21:49:31 Test Item Value Reference Range Interpretation Comments Height (test code = in 1688284527) Weight (test code = lbs 9898030917) Systolic BP (test code = mmHg 7748705658) Diastolic BP (test code = mmHg 1531037220) Heart Rate (test code = bpm 6887098518) LVOT stroke volume (test 49.90 cm3 code = 2637873927) EF(Teich) (test code = 58.10 % 8712658891) LVIDD (test code = 4.20 cm 5414004487) LVIDS (test code = 2.90 cm 9968208894) IVS (test code = 0.95 cm 0315496700) LVPWD (test code = 0.93 cm 7203833687) LVOT diameter (test code = 1.94 cm 5575652989) FS (test code = 30 % 5994614716) MV Peak E Checo (test code = 80.6 cm/s 0164030929) MV Peak A Checo (test code = 39.8 cm/s 7369433590) E/A ratio (test code = ratio 0823436504) E wave decelartion time 0.15 s (test code = 7106438279) LA volume (BP) (test code 52.2 mL = 5289614481) LVOT peak checo (test code = 77.6 cm/s 2250341329) LVOT mn grad (test code = mmHg 8055553091) LA size (test code = 2.22 cm 4728696171) LAV(MOD-sp2) (test code = 38.80 mL 5823464910) LAV(MOD-sp4) (test code = 61.40 mL 5883621663) Tapse (test code = 2.24 cm 4280779419) Aortic valve mean velocity 56.6 cm/s (test code = 0148400638) Ao peak checo (test code = 81.4 cm/s 0549461731) Ao VTI (test code = 17.9 cm 9890319033) AV LVOT peak gradient mmHg (test code = 1382886549) LVOT peak VTI (test code = 17.0 cm 6782748057) AV area by cont VTI (test 2.8 cm2 code = 0013570048) AV area peak checo (test 2.8 cm2 code = 9454690380) LV V1 mean (test code = 50.80 cm/s 3394445066) Ao max PG (test code = 2.70 mm[Hg] 3160558358) MV Prop V (test code = 51.60 cm/s 2868097510) Ao root annulus (test code 3.0 cm = 8855609418) Ao root diam (test code = 3.00 cm 6240992947) AV peak gradient (test mmHg code = 5519805573) AV valve area (test code = 2.80 cm2 6526247911) AV mean gradient (test mmHg code = 3036681949) Aortic root (test code = 3.0 cm 4392524709) PW (test code = 0.93 cm 0.6-1.5 5849329555) EF - 2D (test code = 58.10 % 50435892) Interventricular Septum 0.95 cm Diastolic Thickness by 2D (test code = 3331251) LA Volume Index (BP) (test 28.4 mL/m2 code = 8762883949) BSA (test code = 1.84 m2 8593534964) LV Diastolic Volume (BP) 108.3 mL (test code = 7663496031) EF(MOD-bp) (test code = 47.20 % 8454942345) LV Systolic Volume (BP) 57.2 mL (test code = 2023061303) SV(MOD-bp) (test code = 51.10 mL 7831919610) EF (test code = 47 % 8078761881) Left Ventricular Stroke 51.1 mL Volume by 2-D Biplane-MOD (test code = 4833297) Radiology Study observation (narrative) (test code = 89097-1) LA (test code = LA) ?Left?Ventricle: Normal wall motion. Normal systolic function with a visually estimated EF of 55 - 60%. Normal diastolic function. ?Right?Ventricle: Right ventricle size is normal. Normal systolic function. [facility] CenterLIPID PANEL (21405)(TOTAL CHOLESTEROL, TRIGLYCERIDES, HDL)2021-09-20 20:39:18 Test Item Value Reference Range Interpretation Comments CHOL (test code = 170 mg/dL 120-200 0167349581) HDL (test code = 29 mg/dL >40 L 1660179641) HDLC RATIO (test code = See_Comment H [Au tomated message] 7325763402) The system [employer] generated this result transmit judit reference range : <=5.0. The refe rence range was not u sed to interpret th is result as normal/abnormal . TRIG (test code = 130 mg/dL 30-170 2012107440) LDL CHOL (test code = 115 mg/dL See_Comment [Auto mated message] 85170-6) The system [employer] generated this result transmit judit reference range : <=160. The refe rence range was not u sed to interpret th is result as normal/abnormal . VLDL (test code = 26 mg/dL 5-60 6926364902) Lab Interpretation (test Abnormal code = 64787-9) [facility] CenterMAGNESIUM2022-07-01 20:39:18 Test Item Value Reference Range Interpretation Comments MAGNESIUM (test code = 0600366737) 2.2 mg/dL 1.7-2.4 Lab Interpretation (test code = Normal 38844-9) [facility] CenterPhosphorus [id number] 20:38:58 Test Item Value Reference Range Interpretation Comments PHOSPHORUS (test code = 5597360138) 3.0 mg/dL 2.5-5.0 Lab Interpretation (test code = Normal 08089-6) [facility] CenterPOCT GLUCOSE (AUTOMATED)2021-09-20 17:19:48 Test Item Value Reference Range Interpretation Comments POCT GLU (test code = 7963116529) 109 mg/dL 70-110 Lab Interpretation (test code = Normal 07381-4) [facility] [id number] 11:59:57 Test Item Value Reference Interpretation Comments Range TROPONIN I (test 0.007 ng/mL See_Comment [Automated code = 6008819110) message] The system which generated this result [...] biotin. Lab Interpretation Normal (test code = 62951-4) [id number] 07:04:25 Test Item Value Reference Interpretation Comments Range TROPONIN I (test 0.007 ng/mL See_Comment [Automated code = 7451609717) message] The system which generated this result [...] biotin. Lab Interpretation Normal (test code = 49432-9) [facility] Metabolic Panel (NA, K, CL, CO2, GLUCOSE, BUN, CREATININE, [place])2021-09-20 06:52:46 Test Item Value Reference Range Interpretation Comments NA (test code = 140 mmol/L 135-145 6817605372) K (test code = 3.5 mmol/L 3.5-5.0 6741140381) CL (test code = 107 mmol/L 98-108 2100486730) CO2 TOTAL (test code = 27 mmol/L 23-31 8596221738) AGAP (test code = 2-16 5338280861) BUN (test code = 11 mg/dL 7-23 7529188372) GLUCOSE (test code = 107 mg/dL 70-110 9540201052) CREATININE (test code = 0.77 mg/dL 0.60-1.25 3835326001) CALCIUM (test code = 8.5 mg/dL 8.6-10.6 L 7329152968) eGFR (test code = mL/min/1.73m2 8064386508) LA (test code = LA) Association of [...] tests). Lab Interpretation Abnormal (test code = 86370-1) [facility] with [id number] 06:41:06 Test Item Value Reference Range Interpretation Comments WBC (test code = See_Comment [Automated 6179-2) message] The sy stem which generated this result transmitted reference range : 4.20 - 10.70 10*3/?L. The reference range was not used to interpret this result as normal/abnormal . RBC (test code = See_Comment L [Automated 409-8) message] The sy stem which generated this [...] RDW-SD (test code = 46.3 fL 38.5-51.6 34318-4) RDW-CV (test code = 14.0 % 12.1-15.4 788-0) PLT (test code = See_Comment [Automated 667-3) message] The sy stem which generated this result transmitted reference range : 150 - 328 10*3/ ?L. The reference r randal was not used to interpret this result as normal/abnormal . MPV (test code = 10.6 fL 9.8-13.0 60905-3) NRBC/100 WBC (test See_Comment [Automat ed code = 9842846753) message] The system which generated this result transmitted reference range : 0.0 - 10.0 /100 WBCs. The refer ence range was not u sed to interpret th is result as normal/abnormal . NRBC x10^3 (test code <0.01 See_Comment [Auto mated = 6257347192) message] The s ystem which generated this result transmitted reference range : 10*3/?L. The reference range was not used to interpret this result as normal/abnormal . GRAN MAT (NEUT) % 41.8 % (test code = 770-8) IMM GRAN % (test code 0.30 % = 7093541194) LYMPH % (test code = 43.2 % 736-9) MONO % (test code = 8.7 % 5905-5) EOS % (test code = 5.6 % 713-8) BASO % (test code = 0.4 % 706-2) GRAN MAT x10^3(ANC) 3.13 10*3/uL 1.99-6.95 (test code = 8468388428) IMM GRAN x10^3 (test <0.03 0.00-0.06 code = 0982063828) LYMPH x10^3 (test code 3.23 10*3/uL 1.09-3.23 = 731-0) MONO x10^3 (test code 0.65 10*3/uL 0.36-1.02 = 742-7) EOS x10^3 (test code = 0.42 10*3/uL 0.06-0.53 711-2) BASO x10^3 (test code 0.03 10*3/uL 0.01-0.09 = 704-7) Lab Interpretation Abnormal (test code = 44753-2) [facility] [id number] 01:50:55 Test Item Value Reference Interpretation Comments Range TROPONIN I (test 0.007 ng/mL See_Comment [Automated code = 4715353654) message] The system which generated this result [...] biotin. Lab Interpretation Normal (test code = 21660-0) [facility]N-TERMINAL [id number] 01:47:34 Test Item Value Reference Range Interpretation Comments NT-proBNP (test code 116 pg/mL See_Comment [Autom ated = 8684411550) message] The system which generated this result transmitted reference range : <=125. The reference range was not used to interpret this result as normal/abnormal . LA (test code = LA) Biotin has been reported to cause a negative bias, interpret results relative to patient's use of biotin. Lab Interpretation Normal (test code = 11571-4) [facility] CenterCOMP[facility] METABOLIC PANEL (62008)2021-09-20 01:38:35 Test Item Value Reference Range Interpretation Comments NA (test code = 140 mmol/L 135-145 9012265489) K (test code = 3.8 mmol/L 3.5-5.0 6993356245) CL (test code = 106 mmol/L 98-108 7904396587) CO2 TOTAL (test code 26 mmol/L 23-31 = 2441858601) AGAP (test code = 2-16 8805264389) BUN (test code = 14 mg/dL 7-23 1251432946) GLUCOSE (test code = 103 mg/dL 70-110 6137196678) CREATININE (test code 0.83 mg/dL 0.60-1.25 = 2691710220) TOTAL BILI (test code 0.3 mg/dL 0.1-1.1 = 0252109507) CALCIUM (test code = 8.9 mg/dL 8.6-10.6 6816745290) T PROTEIN (test code 6.4 g/dL 6.3-8.2 = 1353640450) ALBUMIN (test code = 3.9 g/dL 3.5-5.0 7193517174) ALK PHOS (test code = 99 U/L 34-122 1623452040) ALTv (test code = 12 U/L 5-50 1742-6) AST(SGOT) (test code 17 U/L 13-40 = 6004534944) eGFR (test code = mL/min/1.73m2 1798989881) LA (test code = LA) Association of [...] or urine or abnormalities in imaging tests). [facility] CALL [id number] 01:38:15 Test Item Value Reference Range Interpretation Comments APTT Patient (test See_Comment [Automat ed code = 3173-2) message] The system which generated this result transmitted reference range : 23 - 38 Seconds . The reference range was not used to interpr et this result as normal/abnormal . LA (test code = LA) The [facility] patient population mean normal value for aPTT is 30 seconds. Lab Interpretation Normal (test code = 60123-4) [facility] CenterLIPASE2022-07-01 01:38:15 Test Item Value Reference Range Interpretation Comments LIPASE (test code = 6315667463) 100 U/L 0-220 Lab Interpretation (test code = Normal 33579-3) [facility] CenterPROTHROMBIN TIME / [id number] 01:36:15 Test Item Value Reference Range Interpretation Comments PROTIME PATIENT (test See_Comment [Auto mated message] code = 5964-2) The system [employer] generated this result transmitted ref erence range: 12.0 - 1 4.7 Seconds. The re ference range was not u sed to interpret this result as normal/abnor mal. INR (test code = 6301-6) Nor mal INR <1.1; Warfarin Therap eutic range 2.0 to 3. 0 or 2.5 to 3.5, dep ending upon the indica tions. Lab Interpretation (test Normal code = 31662-0) [facility] CenterCB WITH [id number] 01:28:36 Test Item Value Reference Range Interpretation Comments WBC (test code = See_Comment [Automated message] 6690-2) The system [employer] generated this result transmitted ref erence range: 4.20 - 1 0.70 10*3/?L. The re ference range was not u sed to interpret this result as normal/abnor mal. RBC (test code = See_Comment [Automated message] 789-8) The system [employer] generated this result transmitted ref erence range: [...] RDW-SD (test code 46.6 fL 38.5-51.6 = 24012-2) RDW-CV (test code 13.9 % 12.1-15.4 = 788-0) PLT (test code = See_Comment [Automated message] 777-3) The system whic h generated this result transmitted ref erence range: 150 - 32 8 10*3/?L. The re ference range was not u sed to interpret this result as normal/abnor mal. MPV (test code = 10.3 fL 9.8-13.0 61033-8) NRBC/100 WBC (test See_Comment [Automat ed message] code = 1727167080) The syste m which generated this result transmitted ref erence range: 0.0 - 10 .0 /100 WBCs. The refer ence range was not u sed to interpret this result as normal/abnor mal. NRBC x10^3 (test <0.01 See_Comment [Automated message] code = 7129985068) The syste m which generated this result transmitted ref erence range: 10*3/?L. The reference range was not used to interpr et this result as normal/abnormal . GRAN MAT (NEUT) % 51.0 % (test code = 770-8) IMM GRAN % (test 0.20 % code = 2510035177) LYMPH % (test code 34.9 % = 736-9) MONO % (test code 8.7 % = 5905-5) EOS % (test code = 4.8 % 713-8) BASO % (test code 0.4 % = 706-2) GRAN MAT 4.61 10*3/uL 1.99-6.95 x10^3(ANC) (test code = 5150948799) IMM GRAN x10^3 <0.03 0.00-0.06 (test code = 4729079288) LYMPH x10^3 (test 3.16 10*3/uL 1.09-3.23 code = 731-0) MONO x10^3 (test 0.79 10*3/uL 0.36-1.02 code = 742-7) EOS x10^3 (test 0.43 10*3/uL 0.06-0.53 code = 711-2) BASO x10^3 (test 0.04 10*3/uL 0.01-0.09 code = 704-7) [facility] CenterISTAT CHEM [id number] 11:05:00 Test Item Value Reference Range Interpretation [...] of Reference Range s BMP, BASIC METABOLIC [id number] 15:07:00 Test Item Value Reference Range Interpretation [...] glucose = GLUCOSE) normal <100 MG/ DL- [employer] recommendation* * CALCIUM (test code 9.4 MG/DL 8.4-10.2 = CABLOOD) GFR (test code = 95 A GFR of >9 0 GFR) mL/min/1.73m2 mL/min/1.73m2 is considered norm al. [id number] 15:07:00 Test Item Value Reference Range Interpretation Comments MG (test code = MG) 2.4 mg/dL 1.6-2.3 H PROTHROMBIN TIME WITH [id number] 14:02:00 Test Item Value Reference Range Interpretation Comments PROTHROMBIN TIME 13.7 SECONDS 12.0-14.6 INR Usual R randal = 2 (test code = PT) to 3 for pr evention of deep vein thrombosis (DVT ) INR (test code = INR) 1.1 [id number] 13:45:00 Test Item Value Reference Range Interpretation [...] K/UL 1.2-7.2 = NEUT) CHEST XR 2 [id number] 12:25:[address] [address]OGYAZHUEKP IMAGING REPORTPatient Name: Yamil DECKER of Service: [id number]: 48 Sex: M Order #: [id number] [facility] 1970 [facility] Number: [id number] Record Number: [id number] Hospital Number: [id number] Physician: NELIDA WAITE -Ordering Physician: NELIDA WAITE -CHEST.08/24/2018 12:06 PMHistory: Short of breath.Technique: PA and lateral chest projections.Findings: PA and lateral views of the chest demonstrate normal heart sizeand emphysematous but focally clear lungs. No infiltrates or abnormalitiesare depicted. The osseous structures appear intact.Impression:No acute-appearing cardiopulmonary abnormalities .Electronically Signed By: Conner Bruce M.D., 08/24/2018 12:23 PMLegally authenticated by ARLETTE Wolf 2018-08-24 12:23:24PET, CARDIAC PERFUSION MULTIPLE STUDIES, REST AND [id number] 15:30:00Reason for exam:->chest pain, multiple risk factors for CADFINAL REPORT PROCEDURE: Rest/Stress MYOCARDIAL PERFUSION PET with regadenoson\\XA9\\ CPT CODE: 21118 INDICATION: Chest pain, multiple risk factors for CAD HISTORY: Cardiac risk factors: Diabetes, hypertension, tobacco. Other cardiovascular history: Previous [place]. Recent cardiac symptoms: Chest pain. PROTOCOL: Limited low-dose CT imaging was performed for attenuation correction. 40.0 mCi of Rb-82 chloride was injected iv at rest, and gated PET (positron emission tomography) images were obtained. Subsequently, 40.0 mCi of Rb-82 chloride was injected iv at expected peak pharmacologic effect, and gated PET images were obtained. PRELIMINARY STRESS TEST DATA FROM NONINVASIVE CARDIOLOGY:Pharmacologic stress was by 10- second iv infusion of 0.4 mg of regadenoson. Radiotracer was dxpicwwz61 seconds after start of stress. Heart rate was 51 beats/min at rest and 87 beats/min (50% of MPHR)at tracer injection. BP was 99/50 mmHg at [...] is noted with pharmacologic stress. 5. Normal extr acardiac tracer distribution. 6. No previous [facility] study for comparison. NONINVASIVE RISK STRATIFICATION: The above findings are considered low risk (<1% annual mortality rate) based on the following criterion:- Normal or small myocardial perfusion defect at rest or with stress(JACC. 2012;59(9):857- 81.) Signed: Bekah Cota Verified Date/Time: 11/27/2017 15:30:18 Reading Location: [place] [id number] Reading Room HEMOGLOBIN [id number] 09:48:00 Test Item Value Reference Range Interpretation Comments HEMOGLOBIN A1C (BEAKER) (test code = 4.9 % 4.3-6.1 368) BASIC METABOLIC [id number] 06:47:00 Test Item Value Reference Range Interpretation [...] DATA TO CALCULA TE ESTIMATED GFR. TROPONIN [id number] 06:44:00 Test Item Value Reference Range Interpretation [...] failure, acidosis, acute neurological disease, and persistent tachyarrhythmia.[id number] 06:43:00 Test Item Value Reference Range Interpretation Comments MAGNESIUM (BEAKER) (test code = 2.7 mg/dL 1.6-2.6 H 627) CBC W/PLT COUNT & AUTO [id number] 06:09:00 Test Item Value Reference Range Interpretation [...] PERCENT (BEAKER) (test code = 2801) TROPONIN [id number] 01:49:00 Test Item Value Reference Range Interpretation [...] acute neurological disease, and persistent tachyarrhythmia.BASIC METABOLIC [id number] 01:49:00 Test Item Value Reference Range Interpretation [...] m DATA TO CALCULA TE ESTIMATED GFR. [id number] 01:42:00 Test Item Value Reference Range Interpretation Comments MAGNESIUM (BEAKER) (test code = 2.2 mg/dL 1.6-2.6 627) LIPID [id number] 01:42:00 Test Item Value Reference Range Interpretation Comments TRIGLYCERIDES (BEAKER) (test code = 130 mg/dL 540) CHOLESTEROL (BEAKER) (test code = 164 mg/dL 631) HDL CHOLESTEROL (BEAKER) (test code 31 mg/dL = 976) LDL CHOLESTEROL CALCULATED (BEAKER) 107 mg/dL (test code = 633) Triglyceride Reference Range: Low Risk <150 Borderline 150-199 High Risk 200- 499 Very High Risk >=500Cholesterol Reference Range: Low Risk <200 Borderline 200-239 High Risk >240HDL Cholesterol Reference Range: Low Risk >=60 High Risk <40LDL Cholesterol Reference Range: Optimal <100 Near Optimal 100-129 Borderline 130-159 High 160-189 Very High >=190HEPATIC FUNCTION [id number] 01:42:00 Test Item Value Reference Range Interpretation [...] 6-55 347) CBC W/PLT COUNT & AUTO [id number] 00:59:00 Test Item Value Reference Range Interpretation [...] % 0-1 PERCENT (BEAKER) (test code = 4377)
[2021-11-11] MEDS ORDERED: HYDROCODONE/APAP 5/325 MG TAB ONE (18:14)
--- NOTE | 2021-11-11 18:47 | RAD REPORT ---
EXAM DESCRIPTION: RAD - Ankle Right 3 View - 11/11/2021 6:37 pm CLINICAL HISTORY: Right ankle pain FINDINGS: No fracture or dislocation is seen.
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
[2021-11-11 20:07] VITALS: TEMP 97.5
[2021-11-11 20:18] VITALS: BP 103/79; O2SAT 98
== END 2021-11-11 19:22 | disposition home or self-care (01) ==
LOC: ER 17:27
DX: S93.401A Sprain of unspecified ligament of right ankle, initial encounter (principal); I10 Essential (primary) hypertension; F17.210 Nicotine dependence, cigarettes, uncomplicated; Z91.018 Allergy to other foods; Z91.040 Latex allergy status; Z91.048 Other nonmedicinal substance allergy status
CPT/HCPCS: 99284

== ENCOUNTER 2022-10-03 21:07 | Emergency (ER) | payer OTHER ==
--- OUTSIDE RECORDS SUMMARY | 2022-10-03 21:16 | XMS REPORT | Continuity of Care Document ---
:1970 Author Organization [facility] t Address [address] [facility]. [address] [place] [address] Care Team Providers Name Role Phone SHERRY OLVERA Primary Care Physician Unavailable SEHFALI HINOJOSA Attending Clinician Unavailable LUIS DANIEL JOHNSON Attending Clinician Unavailable LUIS DANIEL JOHNSON Attending Clinician Unavailable DAVID MCGEE Attending Clinician Unavailable Willian Bentley DO Attending Clinician Everardo CIFUENTES, David Attending Clinician Doctor Unassigned, [facility] Attending Clinician Unavailable CAN AWAD Attending Clinician Unavailable HARISH CARSON Attending Clinician Unavailable Harish Carson MD Attending Clinician TOLU PEÑA Attending Clinician Unavailable SHELIA FLOWERS Attending Clinician Unavailable SHELIA FLOWERS Attending Clinician Unavailable Ashish CIFUENTES, Shefali Attending Clinician Deirdre STALEY, Oliiva Ross Attending Clinician Unavailable SHIRA BOSWELL Attending Clinician Unavailable Alyssia Moss MD Attending Clinician Shanice CIFUENTES, Rafaela Attending Clinician Oseas CIFUENTES, Lazara Attending Clinician Andreia CATHERINE, Shira Minaya Attending Clinician [phone] Luis Daniel Johnson DO Attending Clinician GLADIS_DAVID Attending Clinician Unavailable DANA ARCINIEGA Attending Clinician Unavailable Pamella OAK TANNERDana Attending Clinician RINA BUNCH Attending Clinician Unavailable Julio C OFFSET PRESS OPERATOR HELPERRina Attending Clinician RADIOLOGY Attending Clinician Unavailable Radiology Attending Clinician Unavailable Therapist, Adc Respiratory Attending Clinician Unavailable Dave Hassan MD Attending Clinician DAVE HASSAN Attending Clinician Unavailable ALYSSIA MOSS Attending Clinician Unavailable GREG BANKS Attending Clinician Unavailable Sukhjinder Aranda MD Attending Clinician SUKHJINDER ARANDA Attending Clinician Unavailable Tana Eli Attending Clinician TANA CAMPA Attending Clinician Unavailable Luis Enrique Allison MD Attending Clinician DONNA HUBBARD Attending Clinician Unavailable Tonie-Alyayo_A_AH Attending Clinician Unavailable Eulalio Cavazos DO Attending Clinician DAVID GRIFFITH Attending Clinician Unavailable HARIS_VINNY Attending Clinician Unavailable STORMY MONTENEGRO Attending Clinician Unavailable Jonny Davis Attending Clinician LUIS FELIPE DAMON Attending Clinician Unavailable RUFINO DUMONT Attending Clinician Unavailable TREVOR MULLEN Attending Clinician Unavailable Jonny Butt Attending Clinician Unavailable SHEFALI HINOJOSA Admitting Clinician Unavailable DAVID MCGEE Admitting Clinician Unavailable David Mcgee MD Admitting Clinician HARISH CARSON Admitting Clinician Unavailable SHELIA FLOWERS Admitting Clinician Unavailable SHIRA BOSWELL Admitting Clinician Unavailable Shira Weber Admitting Clinician [phone] LUIS DANIEL JOHNSON Admitting Clinician Unavailable METJIE Admitting Clinician Unavailable PAULINE SAMAYOA Admitting Clinician Unavailable ALYSSIA MOSS Admitting Clinician Unavailable Tonie-Mbayo_A_AH Admitting Clinician Unavailable AMBREEN_KARENHANA Admitting Clinician Unavailable RUFINO DUMONT Admitting Clinician Unavailable TREVOR MULLEN Admitting Clinician Unavailable Payers Payer Name Policy Type Policy Number Effective Date Expiration Date S kerry [facility] DUAL [id number] 2021 COMP HMO D SNP 00:00:00 [place]ID [place] [id number] 2019 00:00:00 [place] [id number] 2019 CLASSIC/VALUE 00:00:00 WELLCARE [id number] 2019 HEALTHPLANS 00:00:00 (MEDICARE REPLAC[place]) [place] [id number] [place] [facility] [id number] 2019 [place] (MEDICARE 00:00:00 REPLACEMENT/ADVANT[place] GE - HMO) 2 M [id number] 2018 00:00:00 Problems Condition Condition Condition Status Onset Resolution Last Treating Co mments Source Name Details Category Date Date Treatment Clinician Date Cigarette Cigarette Disease Active Uni vers smoker smoker 7-13 ity of 00:00: [address] Branch COPD COPD Disease Active Univers (chronic (chronic 7-13 ity of obstructiv [place]iv [place] Medical pulmonary pulmonary Bran ch disease) disease) Family Family Disease Active Univers history of history of 09-20 [place] of early CAD [place] Other Other Disease Active Univers hyperlipid hyperlipid 09-20 it y of emia emia 00:00: [place] 00 Medical Branch Primary Primary Disease Active Overview: Univ ers hypertensi hypertensi 6-23 Formattin ity of on on 00:00: g of this [place] 00 note Medical might be Branch different from the original. Added automatic ally from request for surgery [id number] Chest Chest Disease Active Overview: Univer s pain, pain, 6-23 Formattin ity of unspecifie unspecifie 00:00: g of this [place] d type d type 00 note Medical might be Branch different from the original. Added automatic ally from request for surgery [id number] NEVAREZ NEVAREZ Disease Active Overview: Univer s (dyspnea (dyspnea 6 Formattin ity of on on 00:00: g of this [place] exertion) exertion) 00 note Medi eloy might be Branch different from the original. 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 [facility] Hyperlipid Hyperlipid Problem Active 2020-0 M [facility] emia emia 9-15 [facility] Anxiety Anxiety Problem Active [place] disorder Disorder 9-15 da [facility] Mental Mental Problem Active 0 [place] disorder Disorder 9-15 da 00:[facility] Depressive Depressive Problem Active 2019-0 [place] disorder Disorder 9-15 da 00:00: [...] Practic 00 e Chronic Chronic Problem Active [facility] back pain Back Pain 4-15 Fami ly 00:00: Practic 00 e Anxiety Anxiety Problem Active 2019-0 Village 4-14 Family 00:00: Practic 00 e 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 Chronic 4-14 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 Obstructiv 00:00: Pr actic e e 00 e pulmonary Pulmonary disease Disease Prediabete Prediabete Problem Active [facility] s s 4-14 Family 00:00: Practic 00 e Bipolar 1 Bipolar [address] [facility] Chest pain Chest pain Disease [facility] Anxiety Anxiety Disease [facility] Essential Essential Disease Active [facility] hypertensi hypertensi 11-27 Jesi kes on on 00:00: [facility] Center Migraine Migraine Disease [facility] Tobacco Tobacco Disease Active [facility] abuse abuse [facility] Allergies, Adverse Reactions, Alerts Allergy Allergy [...] DRUG Active Unknown-Cmnt 2019-0 Un bam TAPE-DEEDEE 04-15 ity of ICONES 00:00: [place] [facility] LATEX DRUG Active Unknown-Cmnt 2019-0 Univ ers INGREDI 04-15 ity of 00:00: [place] 00 Medical Branch Adhesive Propensi Active Unknown - 0 Uni vers Tape-Deedee ty to See comments 04-15 it y of icones adverse 00:00: [place] reaction 00 Medical s Branch Latex Propensi Active Unknown - 0 Unive rs ty to See comments 04-15 ity of adverse 00:00: [place] reaction 00 Medical s Branch No Known NA Active [facility] Allergie 6-10 Hospita s 10:48: l 08 ([place]) HYDROCOD Allergy Active High Rash [facility] N 00 Center Hydrocod Drug Active Rash [facility] Allergy 9[facility]06 [facility] aminophe [facility] n [facility] Center ADHESIVE Allergy Active [place] TAPE to da substanc [facility] Latex Allergy Active [place] to da substanc [facility] Family History Family Member Diagnosis Comments Start Date Stop Date Source Natural mother No Known Problem [facility] Natural father Cancer [facility] Natural father Heart disease [facility] Social History Social Habit Start Date Stop Date Quantity Comments Source Gender identity Universit y of [facility] Sexual orientation Univer sity of [facility] History of tobacco Snuff User Univer sity of use [facility] Exposure to 2022-07-26 2022-08-05 Not sure University of SARS-CoV-2 (event) 00:00:00 20:02:00 [facility] Tobacco use and 2021-09-12 2021-09-12 User of Universit y of exposure 00:00:00 00:00:00 smokeless [facility] tobacco Branch History of Social 2020-12-06 2020-12-06 Univers ity of function 00:00:00 00:00:00 [facility] Alcohol intake 2017-11-27 2017-11-27 Current KATHERIN Nash es 00:00:00 00:00:00 non-drinker of Medical Ce nter alcohol (finding) Cigarettes smoked 2017-11-26 2017-11-[address] [facility] current (pack per 00:00:00 00:00:00 Medical Center day) - Reported Cigarette 2017-11-26 2017-11-26 KATHERIN Valerio pack-years 00:00:00 00:00:00 [facility] Sex Ass[birth year] [facility] Jesi deys 00:00:00 00:00:00 [facility] Smoking Status Start Date Stop Date Source Heavy Tobacco Smoker [facility] Ex-smoker 2021-09-12 00:00:00 2021-09-12 00:00:00 [facility] Smokes tobacco daily 2017-11-26 00:00:00 [facility] Medications Ordered Filled Start Stop Current Ordering Indication Dosage Frequency Signature Comments Components Source Medication Medication Date Date Medication? Clinician (SIG) Name Name maalox:diph 2022-0 2022- No 15mL 15 mL, Uni vers enhydrAMINE 7-14 -14 Oral, ity of :lidocaine 16:30: 17:09 ONCE, 1 Kish[place] as 2 % viscous 00 :00 dose, On Medi eloy 1:1:1 Fri Branch ([facility]OUT 10/03/22 at [facility]) 1130, oral Routine suspension 15 mL aspirin 81 2022-0 Yes 81mg Take 1 Unive rs mg EC 7-14 tablet by ity of tablet 14:27: mouth. [place] [address] Medical Branch propranoloL 2022-0 Yes 10mg Take 1 Univ ers 10 mg 7-14 tablet by ity of tablet 14:27: mouth in [place] [address] the Medical morning Branch and 1 tablet in the evening. Cholecalcif 2022-0 Yes 2000U Take 1 Uni vers sunday, 7-14 capsule by ity of Vitamin D3, 14:27: [place] 50 [place] 33 Medical (2,000 Branch unit) capsule clonazePAM 2022-0 Yes 1mg Take 1 Unive rs 1 mg tablet 7-14 tablet by ity of 14:27: mouth in [place] 33 the Medical morning Branch and 1 tablet at noon and 1 tablet in the evening. sertraline 2022-0 Yes Take by Univ ers HCl 7-14 mouth. ity of (SERTRALINE 14:27: [place] ORAL) [facility] Branch aspirin EC 3-0 Yes 81mg 81 mg, Unive rs tablet 81 7-14 Oral, ity of mg 14:00: DAILY, [place] 00 First dose Medical on Thu10/03/22 at 0900, Until Discontinu ed, Routine clonazePAM 2022-0 Yes 1mg 1 mg, Univer s (KLONOPIN) 7-14 Oral, TID, ity of tablet 1 mg 13:00: First dose 00 on Thu [facility] 10/03/22 at Branch 0800, Until Discontinu ed, Routine cyclobenzap 2023-0 Yes 10mg 10 mg, Univ ers rine 7-14 Oral, ity of (FLEXERIL) 05:07: TIDPRN, [place] tablet 10 27 Starting Medica l mg on Thu10/03/22 at 0007, Until Discontinu ed, Routine, Muscle Spasms butalbital- 2022-0 Yes 1{tbl} 1 tablet, Univers acetaminoph 10-03 Oral, ity of en-caff 03:23: Q4HPRN, [place] (ESGIC) 56 Starting Medical 50-325-[address] [facility] mg tablet 1 10/02/22 at tablet 2223, Until Discontinu ed, Routine, headache SERTraline 3-0 Yes 25mg 25 mg, Unive rs (ZOLOFT) 7-14 Oral, ity of tablet 25 03:15: DAILY, [place] mg 00 First dose Medical on Sujatha Branch 10/02/22 at 2215, Until Discontinu ed, Routine propranoloL 2023-0 Yes 10mg 10 mg, Univ ers (INDERAL) 7-14 Oral, BID, ity of tablet 10 03:15: [place] mg 00 on [facility] 10/02/22 at Branch 2215, Until Discontinu ed, Routine pravastatin 2023-0 Yes 40mg 40 mg, Univ ers (PRAVACHOL) 7-14 Oral, QHS, it y of tablet 40 02:45: First dose [place] mg [address] [facility] Medical 10/02/22 at Branch 2145, Until Discontinu ed, Routine nitroglycer 0 Yes .4mg 0.4 mg, Uni vers in 10-03 Sublingual ity of (NITROSTAT) 02:41: , Q5MIN [place] as sublingual 43 PRN, Medical tablet 0.4 Starting Branc h mg on Sujatha 10/02/22 at 2141, Until Discontinu ed, Routine, Chest pain albuterol 0 Yes 2{puff} 2 Puff, Un bam (VENTOLIN) 10-03 Inhalation ity of inhaler 2 02:41: , Q6HPRN, [place] as Puff 20 Starting Medical on [facility] Branch 10/02/22 at 2141, Until Discontinu ed, Routine, Wheezing, Shortness of Breath pantoprazol 2022- Yes [id number] 40mg Take 1 Univers e 10-03 tablet by ity of (PROTONIX) 00:00: 04:59 mouth in [place] 40 mg EC 00 :00 the Medical tablet morning Branch for 30 days. traMADoL 50 2022- Yes [id number] 50mg Take 1 Uni vers mg tablet 10-03 tablet by ity of 00:00: 04:59 mouth [place] 00 :00 every 6 Medical (six) Branch hours as needed for Pain (scale 7-10) for up to 7 days. Indication s: acute pain enoxaparin 0 Yes 40mg 40 mg, Unive rs (LOVENOX) 10-02 Subcutaneo ity of injection 22:00: [place], DAILY, [place] 40 mg 00 First dose Medical on [facility] Branch 10/02/22 at 1700, Until Discontinu ed, Routine aspirin 0 2022- No 81mg 81 mg, Univers chewable 10-02 Oral, ity of tablet 81 21:15: 02:42 DAILY, [place] mg 00 :33 First dose Medical on [facility] Branch 10/02/22 at 1615, Until Discontinu ed, Routine ondansetron 0 Yes 4mg 4 mg, Slow Univers (ZOFRAN 10-02 IV Push, ity of (PF)) 21:05: Q6HPRN, [place] injection 4 23 Starting Medi eloy mg on Sujatha Branch 10/02/22 at 1605, Until Discontinu ed, Routine, Nausea and Vomiting (N/V) morpHINE (2 2022- Yes 4mg 4 mg, Slow Univers mg/mL) 10-02 IV Push, ity of injection 4 21:05: 21:04 Q4HPRN, [place] mg 20 :20 Starting Medical on [place] Branch 10/02/22 at 1605, Until 10/03/22 at 1604, Routine, Pain (scale 7-10) HYDROcodone 2022- Yes 1{tbl} 1 tablet, Univers -acetaminop 10-0215 Oral, ity of hen (NORCO 21:05: 21:04 Q6HPRN, [place] as 5) 5-325 mg 17 :17 Starting Medi eloy tablet [address] [facility] Branch tablet 10/02/22 at 1605, Until 10/04/22 at 1604, Routine, Pain (scale 4-6) acetaminoph Yes 650mg 650 mg, Un bam en 10-02 Oral, ity of (TYLENOL) 21:05: Q6HPRN, [place] tablet 650 11 Starting Medic al mg on [place]jatha Branch 10/02/22 at 1605, Until Discontinu ed, Routine, Pain (scale 1-3), Temp > 38 C ondansetron 2022- No 4mg 4 mg, Slow Univers (ZOFRAN 10-02 IV Push, ity of (PF)) 19:30: 18:35 ONCE, 1 [place] injection 4 00 :00 dose, On Medi eloy mg [place] Branch 10/02/22 at 1430, Routine morpHINE (4 2022- No 4mg 4 mg, Slow Univers mg/mL) 10-02 IV Push, ity of injection 4 19:30: 18:37 ONCE, 1 [place] mg 00 :00 dose, On Medical [place] Branch 10/02/22 at 1430, STAT HYDROcodone 2022- No 1{tbl} 1 tablet, Univers -acetaminop 5-17 05-17 Oral, ity of hen (NORCO 02:45: 02:39 ONCE, 1 [place] as 5) 5-325 mg 00 :00 dose, On Medi eloy tablet 1 Tue Branch tablet 08/05/22 at 2145, REINA ibuprofen 2022- No 600mg 600 mg, Uni vers (IBU) 08-0617 Oral, ity of tablet 600 01:30: 01:23 ONCE, 1 [place] as mg 00 :00 dose, On Medical Tue Branch 08/05/22 at 2030, REINA ibuprofen Yes [id number] 600mg Take 1 Univers 600 mg 5-16 [id number] tablet by ity of tablet 00:00: mouth [place] 00 every 6 Medical (six) Branch hours as needed for Pain (scale 4-6). ibuprofen Yes [id number] 600mg Take 1 Univers 600 mg 5-16 [id number] tablet by ity of tablet 00:00: mouth [place] 00 every 6 Medical (six) Branch hours as needed for Pain (scale 4-6). ibuprofen 2022- No [id number] 600mg Take 1 Univers 600 mg -16 - [id number] tablet by ity o f tablet 00:00: 00:00 mouth [place] 00 :00 every 6 Medical (six) Branch hours as needed for Pain (scale 4-6). HYDROcodone 2022- Yes [id number] 1{tbl} Take 1 U nivers -acetaminop 5-16 05-24 tablet by it y of hen 5-325 00:00: 04:59 mouth [place] mg tablet 00 :00 every 6 Medical (six) Branch hours as needed for Pain (scale 7-10) for up to 7 days. Indication s: acute pain HYDROcodone 2022- Yes [id number] 1{tbl} Take 1 U nivers -acetaminop 5-16 05-24 tablet by it y of hen 5-325 00:00: 04:59 mouth [place] mg tablet 00 :00 every 6 Medical (six) Branch hours as needed for Pain (scale 7-10) for up to 7 days. Indication s: acute pain ketorolac 2021- No 30mg 30 mg, Unive rs (TORADOL) 11-28 09-08 Intramuscu ity of injection 23:08: 23:37 lar, ONCE, [place] 30 mg 00 :00 1 dose, On Medical Sujatha 11/28/21 Branch at 1815, REINA naproxen 2021-0 2- No [id number] 500mg Take 1 Univers 500 mg EC 11-28 [id number] tablet by it y of tablet 00:00: 04:59 mouth in [place] 00 :00 the Medical morning Branch and 1 tablet in the evening. Take with meals. Do all this for 20 doses. pravastatin 2021-0 Yes 40mg 40 mg, Univ ers (PRAVACHOL) 7-02 Oral, QHS, it y of tablet 40 02:00: First dose [place] mg 00 on Thu [facility] 09/20/21 at Branch 2100, Until Discontinu ed, Routine aspirin 81 2021-0 Yes 81mg Take 81 mg U nivers mg EC 7-02 by mouth. ity of tablet 00:16: [address] propranoloL 2021-0 Yes 10mg Take 10 mg Univers 10 mg 7-02 by mouth 2 ity of tablet 00:16: (two) [place] 39 times Medical daily. Branch Cholecalcif 0 Yes 1{tbl} Take 1 Un bam sunday, 7-02 tablet by ity of Vitamin D3, 00:16: [place]. [place] 50 mcg 39 Medical (2,000 Branch unit) capsule clonazePAM 2021-0 Yes 1mg Take 1 mg Un bam 1 mg tablet 7-02 by mouth 3 it y of 00:16: (three) [place] 39 times Medical daily. Branch aspirin 81 2021-0 Yes 81mg Take 81 mg U nivers mg EC 7-02 by mouth. ity of tablet 00:16: [address] propranoloL 2-0 Yes 10mg Take 10 mg Univers 10 mg 7-02 by mouth 2 ity of tablet 00:16: (two) [place] 39 times Medical daily. Branch Cholecalcif 2021-0 Yes 1{tbl} Take 1 Un bam sunday, 7-02 tablet by ity of Vitamin D3, 00:16: mouth. [place] 50 m[place] 39 Medical (2,000 Branch unit) capsule clonazePAM 2-0 Yes 1mg Take 1 mg Un bam 1 mg tablet 7-02 by mouth 3 it y of 00:16: (three) [place] 39 times Medical daily. Branch aspirin 81 2021-0 Yes 81mg Take 81 mg U nivers mg EC 7-02 by mouth. ity of tablet 00:16: [place] [address] Medical Branch propranoloL 2022-0 Yes 10mg Take 10 mg Univers 10 mg 7-02 by mouth 2 ity of tablet 00:16: (two) [place] 39 times Medical daily. Branch Cholecalcif 2022-0 Yes 1{tbl} Take 1 Un bam sunday, 7-02 tablet by ity of Vitamin D3, 00:16: [place]. [place] 50 [place] 39 Medical (2,000 Branch unit) capsule clonazePAM 2022-0 Yes 1mg Take 1 mg Un bam 1 mg tablet 7-02 by mouth 3 it y of 00:16: (three) [place] 39 times Medical daily. Branch aspirin 81 2022-0 Yes 81mg Take 81 mg U nivers mg EC 7-02 by mouth. ity of tablet 00:16: [place] [address] Medical Branch propranoloL 2-0 Yes 10mg Take 10 mg Univers 10 mg 7-02 by mouth 2 ity of tablet 00:16: (two) [place] 39 times Medical daily. Branch Cholecalcif 2-0 Yes 1{tbl} Take 1 Un bam sunday, 7-02 tablet by ity of Vitamin D3, 00:16: [place]. [place] 50 [place] 39 Medical (2,000 Branch unit) capsule clonazePAM 2022-0 Yes 1mg Take 1 mg Un bam 1 mg tablet 7-02 by mouth 3 it y of 00:16: (three) [place] 39 times Medical daily. Branch aspirin 81 2022-0 Yes 81mg Take 81 mg U nivers mg EC 7-02 by mouth. ity of tablet 00:16: [place] [address] Medical Branch propranoloL 2022-0 Yes 10mg Take 10 mg Univers 10 mg 7-02 by mouth 2 ity of tablet 00:16: (two) [place] 39 times Medical daily. Branch Cholecalcif 2022-0 Yes 1{tbl} Take 1 Un bam sunday, 7-02 tablet by ity of Vitamin D3, 00:16: mouth. [place] 50 m[place] 39 Medical (2,000 Branch unit) capsule clonazePAM 2022-0 Yes 1mg Take 1 mg Un bam 1 mg tablet 7-02 by mouth 3 it y of 00:16: (three) [place] 39 times Medical daily. Branch aspirin 81 2022-0 Yes 81mg Take 81 mg U nivers mg EC 7-02 by mouth. ity of tablet 00:16: [place] [address] Medical Branch propranoloL 2022-0 Yes 10mg Take 10 mg Univers 10 mg 7-02 by mouth 2 ity of tablet 00:16: (two) [place] 39 times Medical daily. Branch Cholecalcif 2022-0 Yes 1{tbl} Take 1 Un bam sunday, 7-02 tablet by ity of Vitamin D3, 00:16: mouth. [place] 50 [place] 39 Medical (2,000 Branch unit) capsule clonazePAM 2022-0 Yes 1mg Take 1 mg Un bam 1 mg tablet 7-02 by mouth 3 it y of 00:16: (three) [place] 39 times Medical daily. Branch aspirin 81 2022-0 Yes 81mg Take 81 mg U nivers mg EC 7-02 by mouth. ity of tablet 00:16: [place] [address] Medical Branch propranoloL 2022-0 Yes 10mg Take 10 mg Univers 10 mg 7-02 by mouth 2 ity of tablet 00:16: (two) [place] 39 times Medical daily. Branch Cholecalcif 2-0 Yes 1{tbl} Take 1 Un bam sunday, 7-02 tablet by ity of Vitamin D3, 00:16: mouth. [place] 50 [place] 39 Medical (2,000 Branch unit) capsule clonazePAM 2022-0 Yes 1mg Take 1 mg Un bam 1 mg tablet 7-02 by mouth 3 it y of 00:16: (three) [place] 39 times Medical daily. Branch aspirin 81 2022-0 Yes 81mg Take 81 mg U nivers mg EC 7-02 by mouth. ity of tablet 00:16: [place] [address] Medical Branch propranoloL 2022-0 Yes 10mg Take 10 mg Univers 10 mg 7-02 by mouth 2 ity of tablet 00:16: (two) [place] 39 times Medical daily. Branch Cholecalcif 2022-0 Yes 1{tbl} Take 1 Un bam sunday, 7-02 tablet by ity of Vitamin D3, 00:16: mouth. [place] 50 [place] 39 Medical (2,000 Branch unit) capsule clonazePAM 2022-0 Yes 1mg Take 1 mg Un bam 1 mg tablet 7-02 by mouth 3 it y of 00:16: (three) [place] 39 times Medical daily. Branch aspirin 81 2022-0 Yes 81mg Take 81 mg U nivers mg EC 7-02 by mouth. ity of tablet 00:16: [place] [address] Medical Branch propranoloL 2022-0 Yes 10mg Take 10 mg Univers 10 mg 7-02 by mouth 2 ity of tablet 00:16: (two) [place] 39 times Medical daily. Branch Cholecalcif 2022-0 Yes 1{tbl} Take 1 Un bam sunday, 7-02 tablet by ity of Vitamin D3, 00:16: mouth. [place] 50 [place] 39 Medical (2,000 Branch unit) capsule clonazePAM 2022-0 Yes 1mg Take 1 mg Un bam 1 mg tablet 7-02 by mouth 3 it y of 00:16: (three) [place] 39 times Medical daily. Branch aspirin 81 2022-0 Yes 81mg Take 81 mg U nivers mg EC 7-02 by mouth. ity of tablet 00:16: [place] [address] Medical Branch propranoloL 2022-0 Yes 10mg Take 10 mg Univers 10 mg 7-02 by mouth 2 ity of tablet 00:16: (two) [place] 39 times Medical daily. Branch Cholecalcif 2022-0 Yes 1{tbl} Take 1 Un bam sunday, 7-02 tablet by ity of Vitamin D3, 00:16: mouth. [place] 50 m[place] 39 Medical (2,000 Branch unit) capsule clonazePAM 2022-0 Yes 1mg Take 1 mg Un bam 1 mg tablet 7-02 by mouth 3 it y of 00:16: (three) [place] 39 times Medical daily. Branch aspirin 81 2022-0 Yes 81mg Take 81 mg U nivers mg EC 7-02 by mouth. ity of tablet 00:16: [place] [address] Medical Branch propranoloL 2022-0 Yes 10mg Take 10 mg Univers 10 mg 7-02 by mouth 2 ity of tablet 00:16: (two) [place] 39 times Medical daily. Branch Cholecalcif 2022-0 Yes 1{tbl} Take 1 Un bam sunday, 7-02 tablet by ity of Vitamin D3, 00:16: mouth. [place] 50 [place] 39 Medical (2,000 Branch unit) capsule clonazePAM 2022-0 Yes 1mg Take 1 mg Un bam 1 mg tablet 7-02 by mouth 3 it y of 00:16: (three) [place] 39 times Medical daily. Branch aspirin 81 2022-0 Yes 81mg Take 81 mg U nivers mg EC 7-02 by mouth. ity of tablet 00:16: [address] Branch propranoloL Yes 10mg Take 10 mg Univers 10 mg 09-21 by mouth 2 ity of tablet 00:16: (two) [place] [address] times Medical daily. Branch Cholecalcif Yes 1{tbl} Take 1 Un bam sunday, 09-21 tablet by ity of Vitamin D3, 00:16: [place]. [place] 50 m[place] 39 Medical (2,000 Branch unit) capsule clonazePAM Yes 1mg Take 1 mg Un bam 1 mg tablet 09-21 by mouth 3 it y of 00:16: (three) [place] 39 times Medical daily. Branch heparin Yes 3000U FOR Univers (1,000 7- REBOLUSING ity of unit/mL, 10 23:16: , Starting [place] mL vial) 40 on Thu Medical for 09/20/21 at Branch Rebolusing 1816, Until Discontinu ed, Routine
Dosing based on aPPT testing parameters (refer to continuous heparin drip order).
heparin Yes 12U/kg/ 12 Univers 25,000 7- h Units/kg/h ity of Units/250 23:16: r [...] Rang e, Dosing and Testing: &nbs p;FOR [facility] AND [facility] ONLY &nbs p; - [...] mp;nbsp;&n bsp; ____ &nbs p; FO R [facility] ONLY - aPTT < 40: & amp;nbsp;B olus 5000 units, increase rate 300 units/hr&n bsp; - aPTT 40-49:&nbs p; Alberto egmma 3000 units, increase rate 200 units/hr&n bsp; [...] INITIAL INFUSION RATE.
sulfur 2021-0 2021- No [id number] 5mL 5 mL, Unive rs hexafluorid 09-20 Intravenou i ty of e microsphr 21:30: 21:30 s, ONCE, 1 [place] (LUMASON) 00 :00 dose, On Medica l injection Thu09/20/21 Br anch mL at 1630, Routine
fast food team member approving Restricted medication : ROSI CHIRINOS [...] ed, Routine propranoloL Yes 10mg 10 mg, Univ ers (INDERAL) 09-20 Oral, BID, ity of tablet 10 13:00: First [place] mg 00 on Thu09/20/21 at Branch 0800, Until Discontinu ed, Routine clonazePAM Yes 1mg 1 mg, Univer s (KLONOPIN) 09-20 Oral, TID, ity of tablet 1 mg 13:00: First dose [place] on 09/20/21 at Branch 0800, Until Discontinu ed, Routine ipratropium Yes 3mL 3 mL, Unive rs -albuteroL [...] IV Push, ity of (PF)) 03:40: Q6HPRN, [place] injection 4 41 Starting Medi eloy mg on [facility] Branch 09/19/21 at 2240, Until Discontinu ed, Routine, Nausea and Vomiting (N/V) acetaminoph Yes 650mg 650 mg, Un bam en 09-20 Oral, ity of (TYLENOL) 03:40: Q6HPRN, [place] tablet 650 36 Starting Medic al mg on [facility] Branch 09/19/21 at 2240, Until Discontinu ed, Routine, Pain (scale 1-3) traMADoL No 50mg 50 mg, Univer s (ULTRAM) 09-20 Oral, ity of tablet 50 03:40: 20:25 Q8HPRN, [place] mg 33 :46 Starting Medical on [facility] Branch 09/19/21 at 2240, Until Thu09/20/21 at 1525, Routine, Pain (scale 4-6) albuterol Yes 2{puff} 2 Puff, Un bam (VENTOLIN) 09-20 Inhalation ity of inhaler 2 03:38: , Q6HPRN, [place] as Puff 21 Starting Medical on [facility] 09/19/21 at 2238, Until Discontinu ed, Routine, [...] of (NITROSTAT) 02:30: 01:48 , ONCE, 1 [place] sublingual 00 :00 dose, On Medic al tablet 0.[address] [facility] Branch mg 09/19/21 at 2130, REINA ondansetron 2021- No 4mg 4 mg, Slow Univers (ZOFRAN 09-20 IV Push, ity of (PF)) 02:30: 01:47 ONCE, 1 [place] injection 4 00 :00 dose, On Medi eloy mg [facility] Branch 09/19/21 at 2130, REINA morpHINE (4 2021- No 4mg 4 mg, Slow Univers mg/mL) 09-20 IV Push, ity of injection 4 02:30: 01:48 ONCE, 1 [place] mg 00 :00 dose, On Medical [facility] Branch 09/19/21 at 2130, REINA aspirin 81 2021-0 Yes 81mg Take 81 mg U nivers mg EC 6-30 by mouth. ity of tablet 22:41: [place] 03 Medical Branch propranoloL 2021-0 Yes 10mg Take 10 mg Univers 10 mg 6-30 by mouth 2 ity of tablet 22:41: (two) [place] 03 times Medical daily. Branch Cholecalcif 2021-0 Yes 1{tbl} Take 1 Un bam sunday, 6-30 tablet by ity of Vitamin D3, 22:41: mouth. [place] 50 m[place] 03 Medical (2,000 Branch unit) capsule clonazePAM Yes 1mg Take 1 mg Un bam 1 mg tablet 6-30 by mouth 3 it y of 22:41: (three) [place] 03 times Medical daily. Branch citalopram 2021-0 202- No 40mg Take 40 mg Univers 40 mg 6-30 06-30 by mouth ity of tablet 22:41: 00:00 daily. [place] 03 :00 Medical Branch citalopram 2022-0 Yes 40mg Take 40 mg U nivers 40 mg 6-23 by mouth ity of tablet 08:13: daily. [place] [address] Medical Branch clonazePAM 2022-0 Yes 1mg Take 1 mg Un bam 1 mg tablet 6-23 by mouth 3 it y of 08:13: (three) [place] [address] times Medical daily. Branch citalopram 2-0 Yes 40mg Take 40 mg U nivers 40 mg 6-23 by mouth ity of tablet 08:13: daily. [place] [address] Medical Branch clonazePAM 2-0 Yes 1mg Take 1 mg Un bam 1 mg tablet 6-23 by mouth 3 it y of 08:13: (three) [place] [address] times Medical daily. Branch pravastatin 2022-0 Yes 40mg Take 1 Univ ers 40 mg 6-23 tablet by ity of tablet 00:00: mouth at [place] [address] bedtime. Medical Branch nitroglycer 2022-[id number] 1 Univers in 0.4 mg 6-23 tablet ity of sublingual 00:00: under the [place] tablet 00 tongue Medical every 5 Branch (five) minutes as needed for Chest pain. pravastatin 2022-0 Yes 40mg Take 1 Univ ers 40 mg 6-23 tablet by ity of tablet 00:00: mouth at [place] [address] bedtime. Medical Branch nitroglycer 2022-[id number] 1 Univers in 0.4 mg 6-23 tablet ity of sublingual 00:00: under the [place] tablet 00 tongue Medical every 5 Branch (five) minutes as needed for Chest pain. pravastatin 2022-0 Yes 40mg Take 1 Univ ers 40 mg 6-23 tablet by ity of tablet 00:00: mouth at [place] [address] bedtime. Medical Branch nitroglycer 2022-[id number] 1 Univers in 0.4 mg 6-23 tablet ity of sublingual 00:00: under the [place] tablet 00 tongue Medical every 5 Branch (five) minutes as needed for Chest pain. pravastatin 2022-0 Yes 40mg Take 1 Univ ers 40 mg 6-23 tablet by ity of tablet 00:00: mouth at [place] 00 bedtime. Medical Branch nitroglycer 2022-[id number] 1 Univers in 0.4 mg 6-23 tablet ity of sublingual 00:00: under the [place] tablet 00 tongue Medical every 5 Branch (five) minutes as needed for Chest pain. pravastatin 2022-0 Yes 40mg Take 1 Univ ers 40 mg 6-23 tablet by ity of tablet 00:00: mouth at [place] 00 bedtime. Medical Branch nitroglycer 2022-[id number] 1 Univers in 0.4 mg 6-23 tablet ity of sublingual 00:00: under the [place] tablet 00 tongue Medical every 5 Branch (five) minutes as needed for Chest pain. pravastatin 2022-0 Yes 40mg Take 1 Univ ers 40 mg 6-23 tablet by ity of tablet 00:00: mouth at [place] 00 bedtime. Medical Branch nitroglycer 2022-[id number] 1 Univers in 0.4 mg 6-23 tablet ity of sublingual 00:00: under the [place] tablet 00 tongue Medical every 5 Branch (five) minutes as needed for Chest pain. pravastatin 2022-0 Yes 40mg Take 1 Univ ers 40 mg 6-23 tablet by ity of tablet 00:00: mouth at [place] 00 bedtime. Medical Branch nitroglycer 2022-[id number] 1 Univers in 0.4 mg 6-23 tablet ity of sublingual 00:00: under the [place] tablet 00 tongue Medical every 5 Branch (five) minutes as needed for Chest pain. pravastatin 2022-0 Yes 40mg Take 1 Univ ers 40 mg 6-23 tablet by ity of tablet 00:00: mouth at [place] 00 bedtime. Medical Branch nitroglycer 2022-[id number] 1 Univers in 0.4 mg 6-23 tablet ity of sublingual 00:00: under the [place] tablet 00 tongue Medical every 5 Branch (five) minutes as needed for Chest pain. pravastatin 2022-0 Yes 40mg Take 1 Univ ers 40 mg 6-23 tablet by ity of tablet 00:00: mouth at [place] 00 bedtime. Medical Branch nitroglycer 2022-[id number] 1 Univers in 0.4 mg 6-23 tablet ity of sublingual 00:00: under the [place] tablet 00 tongue Medical every 5 Branch (five) minutes as needed for Chest pain. pravastatin 2022-0 Yes 40mg Take 1 Univ ers 40 mg 6-23 tablet by ity of tablet 00:00: mouth at [place] 00 bedtime. Medical Branch nitroglycer 2022-[id number] 1 Univers in 0.4 mg 6-23 tablet ity of sublingual 00:00: under the [place] tablet 00 tongue Medical every 5 Branch (five) minutes as needed for Chest pain. pravastatin 2022-0 Yes 40mg Take 1 Univ ers 40 mg 6-23 tablet by ity of tablet 00:00: mouth at [place] 00 bedtime. Medical Branch nitroglycer 2022-[id number] 1 Univers in 0.4 mg 6-23 tablet ity of sublingual 00:00: under the [place] tablet 00 tongue Medical every 5 Branch (five) minutes as needed for Chest pain. pravastatin 2022-0 Yes 40mg Take 1 Univ ers 40 mg 6-23 tablet by ity of tablet 00:00: mouth at [place] 00 bedtime. Medical Branch nitroglycer 2022-[id number] 1 Univers in 0.4 mg 6-23 tablet ity of sublingual 00:00: under the [place] tablet 00 tongue Medical every 5 Branch (five) minutes as needed for Chest pain. pravastatin 2022-0 Yes 40mg Take 1 Univ ers 40 mg 6-23 tablet by ity of tablet 00:00: mouth at [place] 00 bedtime. Medical Branch nitroglycer 2022-[id number] 1 Univers in 0.4 mg 6-23 tablet ity of sublingual 00:00: under the [place] tablet 00 tongue Medical every 5 Branch (five) minutes as needed for Chest pain. pravastatin 2022-0 Yes 40mg Take 1 Univ ers 40 mg 6-23 tablet by ity of tablet 00:00: mouth at [place] 00 bedtime. Medical Branch nitroglycer 2022-[id number] 1 Univers in 0.4 mg 6-23 tablet ity of sublingual 00:00: under the [place] tablet 00 tongue Medical every 5 Branch (five) minutes as needed for Chest pain. pravastatin 2022-0 Yes 40mg Take 1 Univ ers 40 mg 6-23 tablet by ity of tablet 00:00: mouth at [place] 00 bedtime. Medical Branch nitroglycer [id number] 1 Univers in 0.4 mg 6-23 tablet ity of sublingual 00:00: under the [place] tablet 00 tongue Medical every 5 Branch (five) minutes as needed for Chest pain. pravastatin 0 Yes 40mg Take 1 Univ ers 40 mg 6-23 tablet by ity of tablet 00:00: mouth at [place] 00 bedtime. Medical Branch nitroglycer [id number] 1 Univers in 0.4 mg 6-23 tablet ity of sublingual 00:00: under the [place] tablet 00 tongue Medical every 5 Branch (five) minutes as needed for Chest pain. tiotropium Yes [id number] 18ug Inhale 1 Univers 18 mcg 5-13 capsule ity of inhalation 00:00: daily. [place] Medical Branch albuterol Yes [id number] 2{puff} Inhale 2 Univers 90 5-13 Puffs ity of mcg/actuati 00:00: every 6 [place] on inhaler 00 (six) Medical hours as Branch needed for Wheezing or Shortness of Breath. tiotropium 0 Yes [id number] 18ug Inhale 1 Univers 18 mcg 5-13 capsule ity of inhalation 00:00: daily. [place] [address] Medical Branch albuterol Yes [id number] 2{puff} Inhale 2 Univers 90 5-13 Puffs ity of mcg/actuati 00:00: every 6 [place] on inhaler 00 (six) Medical hours as Branch needed for Wheezing or Shortness of Breath. tiotropium 0 Yes [id number] 18ug Inhale 1 Univers 18 mcg 5-13 capsule ity of inhalation 00:00: daily. [place] Medical Branch albuterol 0 Yes [id number] 2{puff} Inhale 2 Univers 90 5-13 Puffs ity of mcg/actuati 00:00: every 6 [place] on inhaler 00 (six) Medical hours as Branch needed for Wheezing or Shortness of Breath. tiotropium 2021-0 Yes [id number] 18ug Inhale 1 Univers 18 mcg 5-13 capsule ity of inhalation 00:00: daily. [address] Branch albuterol Yes [id number] 2{puff} Inhale 2 Univers 90 5-13 Puffs ity of mcg/actuati 00:00: every 6 [place] on inhaler 00 (six) Medical hours as Branch needed for Wheezing or Shortness of Breath. tiotropium 0 Yes [id number] 18ug Inhale 1 Univers 18 mcg 5-13 capsule ity of inhalation 00:00: daily. [address] Branch albuterol Yes [id number] 2{puff} Inhale 2 Univers 90 5-13 Puffs ity of mcg/actuati 00:00: every 6 [place] on inhaler 00 (six) Medical hours as Branch needed for Wheezing or Shortness of Breath. tiotropium 0 Yes [id number] 18ug Inhale 1 Univers 18 mcg 5-13 capsule ity of inhalation 00:00: daily. [address] Branch albuterol Yes [id number] 2{puff} Inhale 2 Univers 90 5-13 Puffs ity of mcg/actuati 00:00: every 6 [place] on inhaler 00 (six) Medical hours as Branch needed for Wheezing or Shortness of Breath. tiotropium 0 Yes [id number] 18ug Inhale 1 Univers 18 mcg 5-13 capsule ity of inhalation 00:00: daily. [address] Branch albuterol 0 Yes [id number] 2{puff} Inhale 2 Univers 90 5-13 Puffs ity of mcg/actuati 00:00: every 6 [place] on inhaler 00 (six) Medical hours as Branch needed for Wheezing or Shortness of Breath. tiotropium 0 Yes [id number] 18ug Inhale 1 Univers 18 mcg 5-13 capsule ity of inhalation 00:00: daily. [address] Branch albuterol 0 Yes [id number] 2{puff} Inhale 2 Univers 90 5-13 Puffs ity of mcg/actuati 00:00: every 6 [place] on inhaler 00 (six) Medical hours as Branch needed for Wheezing or Shortness of Breath. tiotropium 0 Yes [id number] 18ug Inhale 1 Univers 18 mcg 5-13 capsule ity of inhalation 00:00: daily. [address] Branch albuterol Yes [id number] 2{puff} Inhale 2 Univers 90 5-13 Puffs ity of mcg/actuati 00:00: every 6 [place] on inhaler 00 (six) Medical hours as Branch needed for Wheezing or Shortness of Breath. tiotropium 0 Yes [id number] 18ug Inhale 1 Univers 18 mcg 5-13 capsule ity of inhalation 00:00: daily. [address] Branch albuterol Yes [id number] 2{puff} Inhale 2 Univers 90 5-13 Puffs ity of mcg/actuati 00:00: every 6 [place] on inhaler 00 (six) Medical hours as Branch needed for Wheezing or Shortness of Breath. tiotropium 0 Yes [id number] 18ug Inhale 1 Univers 18 mcg 5-13 capsule ity of inhalation 00:00: daily. [address] Branch albuterol Yes [id number] 2{puff} Inhale 2 Univers 90 5-13 Puffs ity of mcg/actuati 00:00: every 6 [place] on inhaler 00 (six) Medical hours as Branch needed for Wheezing or Shortness of Breath. tiotropium 0 Yes [id number] 18ug Inhale 1 Univers 18 mcg 5-13 capsule ity of inhalation 00:00: daily. [address] Branch albuterol 0 Yes [id number] 2{puff} Inhale 2 Univers 90 5-13 Puffs ity of mcg/actuati 00:00: every 6 [place] on inhaler 00 (six) Medical hours as Branch needed for Wheezing or Shortness of Breath. tiotropium 0 Yes [id number] 18ug Inhale 1 Univers 18 mcg 5-13 capsule ity of inhalation 00:00: daily. [address] Branch albuterol 0 Yes [id number] 2{puff} Inhale 2 Univers 90 5-13 Puffs ity of mcg/actuati 00:00: every 6 [place] on inhaler 00 (six) Medical hours as Branch needed for Wheezing or Shortness of Breath. tiotropium 0 Yes [id number] 18ug Inhale 1 Univers 18 mcg 5-13 capsule ity of inhalation 00:00: daily. Medical Branch albuterol Yes [id number] 2{puff} Inhale 2 Univers 90 5-13 Puffs ity of mcg/actuati 00:00: every 6 [place] on inhaler 00 (six) Medical hours as Branch needed for Wheezing or Shortness of Breath. tiotropium Yes [id number] 18ug Inhale 1 Univers 18 mcg 5-13 capsule ity of inhalation 00:00: daily. [place] Medical Branch albuterol Yes [id number] 2{puff} Inhale 2 Univers 90 5-13 Puffs ity of mcg/actuati 00:00: every 6 [place] on inhaler 00 (six) Medical hours as Branch needed for Wheezing or Shortness of Breath. tiotropium Yes [id number] 18ug Inhale 1 Univers 18 mcg 5-13 capsule ity of inhalation 00:00: daily. Medical Branch albuterol Yes [id number] 2{puff} Inhale 2 Univers 90 5-13 Puffs ity of mcg/actuati 00:00: every 6 [place] on inhaler 00 (six) Medical hours as Branch needed for Wheezing or Shortness of Breath. ibuprofen 2020-03- No [id number] 800mg Take 1 Univers 800 mg 05-01 9100 tablet by ity of tablet 00:00: 00:00 mouth [place] 00 :00 every 8 Medical (eight) Branch hours as needed for Pain (scale 4-6). ibuprofen 2020-03- No [id number] 600mg Take 1 Univers 600 mg 09-12 [id number] tablet by ity of tablet 00:00: 00:00 [...] mouth 2 ity of tablet 14:47: (two) [place] 03 times Medical daily. Branch Cholecalcif Yes 1{tbl} Take 1 Un bam sunday, 9-16 tablet by ity of Vitamin D3, 14:47: mouth. [place] 50 m[place] 03 Medical (2,000 Branch unit) capsule ALPRAZolam 2022- No .25mg Take 0.25 Univers 0.25 mg 7-23 06-23 mg by ity of tablet 00:00: 00:00 mouth. [place] 00 :00 [facility] aspirin 81 0 Yes 81mg Take 81 mg U nivers mg EC 8-31 by mouth. ity of tablet 10:35: [place] 36 [facility] aspirin 81 0 Yes 81mg Take 81 mg U nivers mg EC 8-31 by mouth. ity of tablet 10:35: [address] venlafaxine Yes 150mg QD Take [address] (EFFEXOR-XR 9-07 [facility] ) 150 MG 24 20:05: mouth Medic al hr capsule 51 daily. [place] gabapentin Yes 300mg Q.25D Take [address] (NEURONTIN) 9-07 [facility] 300 MG 20:05: mouth 4 Medical capsule 51 (four) Center times daily. risperiDONE Yes 3mg QD Take [address] (RISPERDAL) 9-07 by mouth Luke s 3 MG tablet 20:05: daily. [address] aspirin 81 0 Yes 81mg QD Take [address] MG chewable 9-07 by mouth Luke s tablet 20:05: daily. [address] venlafaxine 0 Yes 150mg QD Take [address] (EFFEXOR-XR 9-07 [facility] ) 150 MG 24 20:05: mouth Medic al hr capsule 51 daily. [place] gabapentin [address] Yes 300mg Q.25D Take [address] (NEURONTIN) 9-07 [facility] 300 MG 20:05: mouth 4 Medical capsule 51 (four) Center times daily. risperiDONE 2018-0 Yes 3mg QD Take [address] (RISPERDAL) 9-07 by mouth Luke s 3 MG tablet 20:05: daily. [address] aspirin 81 2018-0 Yes 81mg QD Take [address] MG chewable 9-07 by mouth Luke s tablet 20:05: daily. [address] venlafaxine 2018-0 Yes 150mg QD Take [address] (EFFEXOR-XR 9-07 [facility] ) 150 MG 24 20:05: mouth Medic al hr capsule 51 daily. [place] gabapentin 2018-0 Yes 300mg Q.25D Take [address] (NEURONTIN) 9-07 [facility] 300 MG 20:05: mouth 4 Medical capsule 51 (four) Center times daily. risperiDONE 2018-0 Yes 3mg QD Take [address] (RISPERDAL) 9-07 by mouth Luke s 3 MG tablet 20:05: daily. [address] aspirin 81 2018-0 Yes 81mg QD Take [address] MG chewable 9-07 by mouth Luke s tablet 20:05: daily. [address] venlafaxine 2018-0 Yes 150mg QD Take [address] (EFFEXOR-XR 9-07 [facility] ) 150 MG 24 20:05: mouth Medic al hr capsule 51 daily. [place] gabapentin 2018-0 Yes 300mg Q.25D Take [address] (NEURONTIN) 9-07 [facility] 300 MG 20:05: mouth 4 Medical capsule 51 (four) Center times daily. risperiDONE 2018-0 Yes 3mg QD Take [address] (RISPERDAL) 9-07 by mouth Luke s 3 MG tablet 20:05: daily. [address] aspirin 81 2018-0 Yes 81mg QD Take [address] MG chewable 9-07 by mouth Luke s tablet 20:05: daily. [address] venlafaxine 2018-0 Yes 150mg QD Take [address] (EFFEXOR-XR 9-07 [facility] ) 150 MG 24 20:05: mouth Medic al hr capsule 51 daily. [place] gabapentin 2018-0 Yes 300mg Q.25D Take [address] (NEURONTIN) 9-07 [facility] 300 MG 20:05: mouth 4 Medical capsule 51 (four) Center times daily. risperiDONE 2018-0 Yes 3mg QD Take [address] (RISPERDAL) 9-07 by mouth Luke s 3 MG tablet 20:05: daily. [address] aspirin 81 2018-0 Yes 81mg QD Take [address] MG chewable 9-07 by mouth Luke s tablet 20:05: daily. [address] venlafaxine 2018-0 Yes 150mg QD Take [address] (EFFEXOR-XR 9-07 [facility] ) 150 MG 24 20:05: mouth Medic al hr capsule 51 daily. [place] gabapentin 2018-0 Yes 300mg Q.25D Take [address] (NEURONTIN) 9-07 [facility] 300 MG 20:05: mouth 4 Medical capsule 51 (four) Center times daily. risperiDONE 2018-0 Yes 3mg QD Take [address] (RISPERDAL) 9-07 by mouth [facility] 3 MG tablet 20:05: daily. [address] aspirin 81 [address]80 Yes 81mg QD Take [address] MG chewable 9-07 by mouth Luke s tablet 20:05: daily. [address] acetaminoph acetaminoph No acetaminop [place] en [...] T PO QD 1 T PO QD [facility] Banophen 25 Banophen [...] eye drops eye drops eye drops [facility] citalopram citalopram No citalopram [place] 20 mg 20 mg 20 mg da tablet tablet tablet [facility] cyclobenzap cyclobenzap No cyclobenza [place] rine 10 mg rine 10 mg charito 10 da tablet tablet mg tablet [facility] cyclobenzap cyclobenzap No cyclobenza [place] rine 5 mg rine 5 mg charito 5 mg da tablet tablet tablet [facility] diclofenac diclofenac No diclofenac [place] 1 % topical 1 % topical 1 % d a gel gel topical [facility] gabapentin gabapentin No gabapentin [place] 600 mg 600 mg 600 mg da tablet tablet tablet [facility] ibuprofen ibuprofen No ibuprofen [place] 600 mg 600 mg 600 mg da tablet tablet [facility] ibuprofen ibuprofen No ibuprofen [place] 800 mg 800 mg 800 mg da tablet tablet tablet [facility] ketorolac ketorolac No ketorolac [place] 0.5 % eye 0.5 % eye 0.5 % eye da drops drops drops [facility] naproxen naproxen No naproxen [place] 500 mg 500 mg 500 mg da tablet tablet tablet [facility] ondansetron ondansetron No [...] mg 20 mg da tablet tablet tablet [facility] propranolol propranolol No propranolo [place] 10 mg 10 mg l 10 mg da tablet tablet tablet [facility] risperidone risperidone No risperidon [place] 1 mg tablet 1 mg tablet e 1 mg da [facility] risperidone risperidone No risperidon [place] 4 mg tablet 4 mg tablet e 4 mg da tablet [facility] tramadol tramadol No tramadol [place] 37.5 37.5 37.5 da mg-acetamin mg-acetamin mg-acetami [facility] ophen 325 ophen 325 nophen 325 al mg tablet mg tablet mg tablet [facility] citalopram citalopram No 1 Q1D citalopram [place] 20 mg 20 mg 20 mg Family tablet Take tablet Take tablet [facility] 1 tablet 1 tablet Take 1 e every day every day tablet by oral by oral every day route in route in by oral the the route in morning. morning. the morning. tramadol 50 tramadol 50 No tramadol [place] mg tablet mg tablet 50 mg da TK 1 T PO Q TK 1 T PO Q tablet TK [facility] 8 H PRN 8 H PRN 1 T PO Q 8 al H PRN [facility] gabapentin gabapentin No 1 TID gabapentin [place] 600 mg 600 mg 600 mg Family tablet Take tablet Take tablet [facility] 1 tablet 3 1 tablet 3 Take 1 e times a day times a day tablet 3 by oral by oral times a route. route. day by oral route. venlafaxine venlafaxine No venlafaxin [place] ER 150 mg ER 150 mg e ER 150 d a capsule,ext capsule,ext mg E [facility] ended ended capsule,ex al release 24 release 24 tended H ealth hr hr release 24 Outreac hr h Program naproxen naproxen No 1 BID naproxen [...] bedtime. atorvastati atorvastati No 1 Q1D atorvastat [facility] n 10 mg n 10 mg in 10 mg Famil y tablet Take tablet Take tablet Pract[facility] 1 tablet 1 tablet Take 1 e every day every day tablet by oral by oral every day route in route in by oral the the route in morning. morning. the morning. Immunizations Ordered Filled Immunization Date Status Comments [facility] e Immunization Name Name SARS-COV-2 COVID-19 2020-08-06 Completed Unive rsity of MODERNA VACCINE 00:00:00 [facility] SARS-COV-2 COVID-19 2020-08-06 Completed Unive rsity of MODERNA VACCINE 00:00:00 [facility] SARS-COV-2 COVID-19 2020-08-06 Completed Unive rsity of MODERNA VACCINE 00:00:00 [facility] SARS-COV-2 COVID-19 2020-08-06 Completed Unive [...] COVID-19 2020-08-06 Completed Unive rsity of MODERNA 12+ YRS 00:00:00 [place] Med ical VACCINE Branch SARS-COV-2 COVID-19 2020-08-06 Completed Unive rsity of MODERNA 12+ YRS 00:00:00 [place] Med ical VACCINE Branch SARS-COV-2 COVID-19 2020-08-06 Completed Unive rsity of MODERNA 12+ YRS 00:00:00 [place] Med ical VACCINE Branch SARS-COV-2 COVID-19 2020-08-06 Completed Unive rsity of MODERNA 12+ YRS 00:00:00 [place] Med ical VACCINE Branch SARS-COV-2 COVID-19 2020-08-06 Completed Unive rsity of MODERNA 12+ YRS 00:00:00 [place] Med ical VACCINE Branch SARS-COV-2 COVID-19 2020-08-06 Completed Unive rsity of MODERNA 12+ YRS 00:00:00 [place] Med ical VACCINE Branch SARS-COV-2 COVID-19 2020-08-06 Completed Unive rsity of MODERNA 12+ YRS 00:00:00 [place] Med ical VACCINE Branch SARS-COV-2 COVID-19 2020-07-09 Completed Unive rsity of MODERNA VACCINE 00:00:00 [place] [facility] ical Branch SARS-COV-2 COVID-19 2020-07-09 [...] COVID-19 2020-07-09 Completed Unive rsity of MODERNA 12+ YRS 00:00:00 [place] Med ical VACCINE Branch SARS-COV-2 COVID-19 2020-07-09 Completed Unive rsity of MODERNA 12+ YRS 00:00:00 [place] Med ical VACCINE Branch SARS-COV-2 COVID-19 2020-07-09 Completed Unive rsity of MODERNA 12+ YRS 00:00:00 [place] Med ical VACCINE Branch SARS-COV-2 COVID-19 2020-07-09 Completed Unive rsity of MODERNA 12+ YRS 00:00:00 [place] Med ical VACCINE Branch SARS-COV-2 COVID-19 2020-07-09 Completed Unive rsity of MODERNA 12+ YRS 00:00:00 [place] Med ical VACCINE Branch SARS-COV-2 COVID-19 2020-07-09 Completed Unive rsity of MODERNA 12+ YRS 00:00:00 [place] Med ical VACCINE Branch SARS-COV-2 COVID-19 2020-07-09 Completed Unive rsity of MODERNA 12+ YRS 00:00:00 [place] Med ical VACCINE Branch influenza, influenza, 2018-11-21 Completed [facility] injectable, injectable, 00:00:00 Practice quadrivalent quadrivalent Vital Signs Vital Name Observation Time Observation Value Comments Source Systolic blood 2022-10-03 16:41:00 109 mm[Hg] Univer sity of pressure [place] [facility] Diastolic blood 2022-10-03 16:41:00 65 mm[Hg] Unive rsity of pressure [facility] [facility] Heart rate 2022-10-03 16:41:00 56 /min [facility] Body temperature 2022-10-03 16:41:00 36.56 Priya [facility] Respiratory rate 2022-10-03 16:41:00 18 /min [facility] Oxygen saturation in 2022-10-03 16:41:00 97 /min [facility] Arterial blood by evocatal Pulse oximetry Branch Body height 2022-10-02 21:35:00 177.8 cm [facility] Body weight 2022-10-02 21:35:00 60.464 kg [facility] BMI 2022-10-02 21:35:00 19.13 kg/m2 [facility] Systolic blood 2022-08-06 01:04:00 113 mm[Hg] [facility] Diastolic blood 2022-08-06 01:04:00 90 mm[Hg] [facility] Heart rate 2022-08-06 01:04:00 71 /min [facility] Body temperature 2022-08-06 01:04:00 37 Priya [facility] Respiratory rate 2022-08-06 01:04:00 18 /min [facility] Body height 2022-08-06 01:04:00 177.8 cm [facility] Body weight 2022-08-06 01:04:00 72.576 kg [facility] BMI 2022-08-06 01:04:00 22.96 kg/m2 [facility] Oxygen saturation in 2022-08-06 01:04:00 97 /min [facility] Arterial blood by evocatal Pulse oximetry Branch Systolic blood 2021-11-29 00:00:00 121 mm[Hg] [facility] [place] [facility] Diastolic blood 2021-11-29 00:00:00 81 mm[Hg] [facility] [place] [facility] Heart rate 2021-11-29 00:00:00 55 /min [facility] Respiratory rate 2021-11-29 00:00:00 16 /min [facility] Oxygen saturation in 2021-11-29 00:00:00 98 /min [facility] Arterial blood by [facility] Pulse oximetry Branch Body temperature 2021-11-28 22:20:00 36.94 Priya [facility] Body height 2021-11-28 22:20:00 177.8 cm [facility] Body weight 2021-11-28 22:20:00 68.947 kg [facility] BMI 2021-11-28 22:20:00 21.81 kg/m2 [facility] Systolic blood 2021-09-20 21:09:00 101 mm[Hg] [facility] [place] [facility] Diastolic blood 2021-09-20 21:09:00 68 mm[Hg] [facility] [place] [facility] Heart rate 2021-09-20 21:09:00 52 /min [facility] Body temperature 2021-09-20 21:09:00 36.61 Priya [facility] Oxygen saturation in 2021-09-20 21:09:00 97 /min [facility] [place] blood by [place] [employer] [facility] Pulse oximetry Branch Respiratory rate 2021-09-20 15:15:00 18 /min [facility] Body weight 2021-09-20 08:38:00 67.994 kg [facility] BMI 2021-09-20 08:38:00 21.51 kg/m2 [facility] Body height 2021-09-20 03:18:00 177.8 cm [facility] Systolic blood 2021-09-12 13:16:00 104 mm[Hg] [facility] [place] [facility] Diastolic blood 2021-09-12 13:16:00 76 mm[Hg] [facility] [place] [facility] Heart rate 2021-09-12 13:16:00 74 /min [facility] Body temperature 2021-09-12 13:16:00 36.72 Priya [facility] 2021-09-12 13:16:00 16 /min [facility] Body height 2021-09-12 13:16:00 177.8 cm [facility] Body weight 2021-09-12 13:16:00 [facility] 2021-09-12 13:16:00 21.85 kg/m2 [facility] Oxygen saturation in 2021-09-12 13:16:00 97 /min [facility] Arterial blood by [facility] Pulse oximetry Branch BMI (Body Mass 2020-07-05 00:00:00 22.2 kg/m2 [facility] Body Weight 2020-07-05 00:00:00 155 [lb_av] [facility] Height 2020-07-05 00:00:00 70 [in_i] [facility] Height 2019-07-05 00:00:00 70 [in_i] [facility] BMI (Body Mass 2019-07-05 00:00:00 21.5 kg/m2 [facility] Body Weight 2019-07-05 00:00:00 150 [lb_av] [facility] Practice Procedures Procedure Date / Time Performing Clinician Source Performed MAGNESIUM 2022-10-03 09:37:[address] [facility] TROPONIN I 2022-10-03 09:37:00 Shanice [facility] BASIC METABOLIC PANEL 2022-10-03 09:37:00 David Mcgee [facility] (NA, K, CL, CO2, GLUCOSE, Medica l Branch BUN, CREATININE, CA) LIPID PANEL ([id number])(TOTAL 2022-10-03 09:37:00 David Mcgee [facility] CHOLESTEROL, Medical Branch TRIGLYCERIDES, HDL) REFERRAL- 2022-10-03 05:01:00 Doctor Unassigned, [facility] REQUEST/RESPONSE [facility] TROPONIN I 2022-10-03 02:20:00 David Mcgee [facility] XR LUMBAR SPINE 3 VW 2022-10-02 18:54:00 Willian Bentley [facility] Medical Branch LIPASE 2022-10-02 17:53:00 Singer [facility] Medical Branch MAGNESIUM 2022-10-02 17:53:00 Singer [facility] TROPONIN I 2022-10-02 17:53:00 Singer [facility] THYROID STIMULATING 2022-10-02 17:53:00 Everardo David [facility] HORMONE Medical Branch COMP. METABOLIC PANEL 2022-10-02 17:53:00 Singer Willian [facility] ([id number]) [facility] [place] CBC WITH DIFF 2022-10-02 17:53:00 Singer [facility] GLYCOSYLATED HEMOGLOBIN 2022-10-02 17:53[facility] N-TERMINAL PRO-BNP 2022-10-02 17:53:00 Willian Bentley [facility] Medical Branch CONSENT/REFUSAL FOR 2022-10-02 17:30:58 Doctor Nata [facility] DIAGNOSIS AND TREATMENT [facility] REFERRAL- 2022-08-11 05:01:00 Doctor Nata, [facility] REQUEST/RESPONSE [facility] [place] ASSIGNMENT OF BENEFITS 2022-08-06 02:34:34 Doctor Nata, [facility] XR ANKLE <3 VW RIGHT 2022-08-06 01:48:31 Harish Carson [facility] Medical Branch XR FOOT <3 VW RIGHT 2022-08-06 01:48:31 Harish Carson [facility] Medical Branch CONSENT/REFUSAL FOR 2022-08-06 00:47:14 Doctor Nata [facility] DIAGNOSIS AND TREATMENT [facility] [place] NOTICE OF PRIVACY 2022-08-06 00:46:03 Doctor Nata [facility] PRACTICES [facility] REFERRAL- 2022-02-24 06:01:00 Doctor Nata [facility] REQUEST/RESPONSE [facility] 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 - ADC 2022-02-11 06:01:00 Doctor Unassigned, [facility] REFERRAL [facility] XR FOOT 3+ VW RIGHT 2021-11-28 23:25:[address] [facility] CONSENT/REFUSAL FOR 2021-11-28 22:09:48 Doctor Nata [facility] DIAGNOSIS AND TREATMENT [facility] AUTHORIZATION FOR RELEASE 2021-10-01 05:01:00 Doctor Naat, [facility] [place] TROPONIN I 2021-09-20 21:26:00 Jesi [facility] THYROID STIMULATING 2021-09-20 21:26:00 Jesi [facility] HORMONE [facility] PROTHROMBIN TIME / INR 2021-09-20 21:26:00 Jesi [facility] TRANSTHORACIC ECHO (TTE) 2021-09-20 21:17:00 Jesi [facility] COMPLETE W/ CONTRAST Medical [facility] POCT GLUCOSE (AUTOMATED) 2021-09-20 17:08:00 Shanice [facility] PHOSPHORUS 2021-09-20 11:17:00 Jesi [facility] MAGNESIUM 2021-09-20 11:17:00 Jesi [facility] TROPONIN I 2021-09-20 11:17:[facility] LIPID PANEL ([id number])(TOTAL 2021-09-20 11:17:00 Shefali Hinojosa [facility] CHOLESTEROL, [facility] TRIGLYCERIDES, HDL) TROPONIN I 2021-09-20 05:55:[address] [facility] BASIC METABOLIC PANEL 2021-09-20 05:55:00 Shanice [facility] (NA, K, CL, CO2, GLUCOSE, Medica l Branch BUN, CREATININE, CA) CBC WITH DIFF 2021-09-20 05:55:[address] [facility] GLYCOSYLATED HEMOGLOBIN 2021-09-20 05:55:00 Jesi [facility] (A1C) [facility] COVID-19 (ID NOW RAPID 2021-09-20 01:47:00 Alyssia Moss [facility] TESTING) Medical [place] LAB ONLY COVID 2021-09-20 01:47:00 Alyssia Moss [facility] INTERPRETATION [facility] URINE DRUG (IMMUNOASSAY) 2021-09-20 01:47:00 Alyssia Moss [facility] COMPREHENSIVE DRUG Medical [facility] nch SCREEN W/O REFLEX XR CHEST 1 VW 2021-09-20 01:38:[address] [facility] LIPASE 2021-09-20 01:18:00 Alyssia Moss [facility] TROPONIN I 2021-09-20 01:18:00 Alyssia Moss [facility] COMP. METABOLIC PANEL 2021-09-20 01:18:00 Alyssia Moss [facility] ([id number]) [facility] CBC WITH DIFF 2021-09-20 01:18:00 Alyssia Moss [facility] PROTHROMBIN TIME / INR 2021-09-20 01:18:[address] [facility] ACTIVATED PARTIAL 2021-09-20 01:18:00 Alyssia Moss [facility] THRMPLAS [place] [facility] N-TERMINAL PRO-BNP 2021-09-20 01:18:00 Alyssia Moss [facility] HB ECG ROUTINE & RHYTHM 2021-09-20 01:15:31 Alyssia Moss [facility] NOTICE OF PRIVACY 2021-09-20 01:08:48 Doctor Nata, [facility] PRACTICES [facility] [place] CONSENT/REFUSAL FOR 2021-09-20 01:02:38 Doctor Nata, [facility] DIAGNOSIS AND TREATMENT [facility] INSURANCE CORRESPONDENCE 2021-09-16 05:01:00 Doctor Nata, [facility] HB ECG ROUTINE & RHYTHM 2021-09-12 13:18:19 Shefali Hinojosa [facility] Extraction of Cataract [facility] Appendectomy [facility] Hernia Repair W/mesh [facility] Appendectomy [facility] Plan of Care Planned Activity Planned Date Details Comments Source Instructions [facility] Encounters Start End Encounter Admission Attending Care Care Encounter Source Date/Time Date/Time Type Type Clinicians Facility Department ID 2021-09-13 Outpatient R ASHISH [facility] CCA [id number] Univers 12:32:36 SHEFALI ity [facility] 2021-01-20 Emergency [facility] [id number] Univers 00:18:41 ity [facility] 2021-01-19 Emergency [facility] [id number] Univers 05:34:10 ity [facility] 2022-10-02 2022-10-03 Outpatient X EVERARDO [facility] JORDAN [id number] Univers 12:39:00 14:25:00 DAVID ity [facility] 2022-10-02 2022-10-03 Emergency Willian Bentley [facility] 1.2.840. [id number] Univers 12:39:00 14:25:00 David Mcgee [id number] ity [facility] [id number] [facility] [id number] [facility] 081 Branch 2022-08-11 2022-08-11 Orders Doctor ROSAMARIA 1.2.840.114 [id number] Univers 00:00:00 00:00:00 Only Unassigned, LAURYN [id number] ity of [facility] [id number] [place] [address] [id number] [facility] 009 Branch 2022-08-08 2022-08-08 emergency [id number] 15:07:00 17:05:00 [id number] [id number] 2022-08-08 2022-08-08 Emergency ER DELMI [facility] [id number] [place] 15:07:00 17:05:00 CAN [id number] [facility] 2022-08-05 2022-08-05 Emergency X BRANDON [facility] ERT [id number] Univers 20:10:00 22:16:00 [facility] 2022-08-05 2022-08-05 [facility] [id number] Univers 20:10:00 22:16:00 Harish MORRISON [id number] i ty [facility] [id number] [facility] [id number] [facility] 084 [place] 2022-08-05 2022-08-05 Orders Doctor ROSAMARIA 1.2.840.114 [id number] Univers 00:00:00 00:00:00 Only Unassigned, LAURYN [id number] ity of [facility] [id number] Kishore as [phone] [facility] 009 [place] 2022-05-05 2022-05-05 Outpatient R LUIS DANIEL JOHNSON [facility] [id number] Univers 09:00:00 09:00:00 LUIS DANIEL JOHNSON i ty [facility] 2022-03-18 2022-03-18 [facility] [id number] Univers 15:20:00 15:20:00 SHEFALI coleman f [facility] 2022-02-24 2022-02-24 Orders Doctor ROSAMARIA 1.2.840.114 [id number] Univers 00:00:00 00:00:00 Only Unassigned, LAURYN [id number] ity of [facility] [id number] Kishore as [id number] [address] 2022-02-11 2022-02-11 Orders Doctor ROSAMARIA 1.2.840.114 [id number] Univers 00:00:00 00:00:00 Only Unassigned, LAURYN [id number] ity of [facility] [id number] Kishore as [phone] [address] 2022-02-07 2022-02-07 Outpatient R LUIS DANIEL JOHNSON [facility] 10 [id number] Univers 09:00:00 09:00:00 LUIS DANIEL JOHNSON i ty of [facility] 2022-02-07 2022-02-07 Outpatient R LUIS DANIEL JOHNSON [facility] 10 [id number] Univers 09:00:00 09:00:00 LUIS DANIEL JOHNSON i ty of [facility] 2021-11-28 2021-11-28 Emergency X SHELIA FLOWERS [facility] ERT 1 [id number] Univers 17:21:00 19:53:00 SHELIA FLOWERS of [facility] 2021-11-28 2021-11-28 [facility] [id number] Univers 17:21:00 19:53:00 Shelia MORRISON [id number] i ty of [place].2.7.2.[place] [id number] [facility] 084 [place] 2021-11-13 2021-11-13 [facility] [id number] Univers 09:20:00 09:20:00 SHEFALI perez o f [facility] 2021-10-01 2021-10-01 Orders Doctor ROSAMARIA 1.2.840.114 [id number] Univers 00:00:00 00:00:00 Only Unassigned, LAURYN [id number] ity of [facility] 4.2.7.2.686 Kishore as [id number] [address] 2021-09-24 2021-09-24 Telephone [facility] [id number] Univers 00:00:00 00:00:00 Shefali MORRISON [id number] ity of [place].2.7.2.[place] [phone] Hi dicaz NAL [address] [place] [address] 2021-09-24 2021-09-24 [facility] [id number] Univers 00:00:00 00:00:00 Shefali MORRISON [id number] ity of [place] [id number] Hi dicaz NAL [address] [place] [address] 2021-09-24 2021-09-24 Transition SYLVESTER [place] 1.2.840.114 [id number] Univers 00:00:00 00:00:00 of Care Olivia NAGY [id number] i ty of [place]2.7.2.[place] [id number] [facility] 403 Branch 2021-09-19 2021-09-21 Outpatient X ANDREIA, [facility] [id number] Univers 20:07:00 00:16:00 SHIRA ity of [facility] 2021-09-19 2021-09-21 Hospital Alyssia Moss 1.2.840.1 [id number] Univers 20:07:00 00:16:00 Encounter Rafaela Prasad [id number] ity of [facility] 4.2.7.2.686 [facility], Shira Minaya [phone] [place] [id number] [place] 2021-09-19 2021-09-19 [facility]phone [facility] [id number] Univers 00:00:00 00:00:00 Qiangjun [place] [id number] ity [facility] [id number] [place] [id number] Hi dical NAL [address] [place] [address] 2021-09-18 2021-09-18 Telephone [facility] [id number] Univers 00:00:00 00:00:00 Qiangjun [place] [id number] ity of [place] 4.2.7.2.[place] [id number] Hi dical NAL 9 [facility] 2021-09-17 2021-09-17 Outpatient R ASHISH, [facility] [id number] Univers 08:36:04 23:59:00 QIANGJUN ity o f [facility] 2021-09-17 2021-09-17 Outpatient R ASHISH, [facility] [id number] Univers 09:00:00 09:00:00 QIANGJUN ity o f [facility] 2021-09-17 2021-09-17 [facility] 1.2.840.114 [id number] Univers 00:00:00 00:00:00 Secure Msg Qiangjun [place] [id number] ity of [facility] 4.2.7.2.686 [place] [phone] Hi dical NAL 9 [facility] 2021-09-16 2021-09-16 Orders Doctor ROSAMARIA 1.2.840.114 [id number] Univers 00:00:00 00:00:00 Only Unassigned, LAURYN [id number] ity of [facility] 4.2.7.2.686 Kishore as [id number] [facility] 009 [place] 2021-09-12 2021-09-12 Outpatient R ASHISH, [facility] [id number] Univers 08:40:00 08:40:43 SHEFALI mcgeekaycee o [facility] 2021-09-12 2021-09-12 Outpatient R ASHISH, [facility] [id number] Univers 08:40:00 08:40:43 SHEFALI mcgeekaycee o [facility] 2021-09-12 2021-09-12 Office Ashish, [facility] 1.2.840.114 [id number] Univers 08:40:00 08:40:43 Visit Shefali MORRISON [id number] ity of [place] 4.2.7.2.686 [facility] [phone] Hi dicaz NAL [address] [place] [address] 2021-08-30 2021-08-30 Outpatient R ASHISH, [facility] [id number] Univers 14:40:00 14:40:00 SHEFALI ana jared [facility] 2021-08-13 2021-08-13 Outpatient R LUIS DANIEL JOHNSON [facility] [id number] Univers 07:35:21 23:59:00 LUIS DANIEL JOHNSON i ty of [facility] 2021-08-13 2021-08-13 [facility] 1.2.840.114 [id number] Univers 07:35:21 23:59:00 Encounter Luis Daniel MORRISON [id number] ity of [place] 4.2.7.2.[place] [id number] [facility] 801 [place] 2021-08-09 2021-08-09 Telephone [facility] [id number] Univers 00:00:00 00:00:00 Luis Daniel MORRISON 350.1.13.10 i ty of [place] 4.2.7.2.[place] [phone] Hi dical NAL [address] [place] [address] 2021-08-02 2021-08-02 Office Johnson [facility] 1.2.840.114 [id number] Univers 10:00:00 10:30:00 Visit Luis Daniel MORRISON 350.1.13.10 i ty of [place] 4[place] [id number] Hi dicaz NAL [address] [place] [address] 2021-08-02 2021-08-02 Outpatient R LUIS DANIEL JOHNSON [facility] 10 [id number] Univers 10:00:00 10:00:00 LUIS DANIEL JOHNSON i ty [facility] 2021-07-30 2021-07-30 Orders Doctor ROSAMARIA 1.2.840.114 [id number] Univers 00:00:00 00:00:00 Only Unassigned, LAURYN 350.1.13.10 ity of [facility] 4.2.7.2.686 Kishore as [id number] [facility] 009 [place] 2021-07-17 2021-07-17 Outpatient METCALF_PRI [facility] 702 [place] 11:54:00 11:54:00 SCILLA 0427 da [facility] 2021-03-29 2021-03-29 Outpatient R LUIS DANIEL JOHNSON [facility] 10 [id number] Univers 14:00:00 14:00:00 LUIS DANIEL JOHNSON i ty of [facility] 2021-03-21 2021-03-21 Emergency X [facility] ERT [id number] Univers 12:03:00 13:32:00 DANA ity of [facility] 2021-03-21 2021-03-21 Emergency [facility] [id number] Univers 12:03:00 13:32:00 Dana MORRISON 350.1.13.10 ity of [place].2.7.2.[place] [id number] [facility] 084 [place] 2021-02-28 2021-02-28 Emergency X BUNCH, [facility] ERT [id number] Univers 12:27:00 13:58:00 RINA ity of [facility] 2021-02-28 2021-02-28 Emergency Bunch, [facility] 1.2.840.114 [id number] Univers 12:27:00 13:58:00 Rina MORRISON 350.1.13.10 i ty of [place] 4.2.7.2.686 [facility] [phone] [address] 2021-02-25 2021-02-25 Outpatient R RADIOLOGY [facility] [id number] Univers 08:13:07 23:59:00 ity of [facility] 2021-02-25 2021-02-25 Hospital Radiology [facility] 1.2.840.114 [id number] Univers 08:13:07 23:59:00 Encounter PRINCE 350.1.13.10 ity of [place] 4.2.7.2.686 [facility] [facility] [id number] [facility] 804 [place] 2021-02-19 2021-02-19 Therapeutic Case Manager Therapist, [facility] Respiratory [facility] 1.2.840.114 [id number] Univers 08:23:40 09:53:40 Visit Dave Hassan 350.1.13. 10 ity of [place] 4.2.7.2.686 [facility] [id number] [place] [address] [place] 2021-02-19 2021-02-19 Outpatient R SIGRID, [facility] [id number] Univers 08:00:00 08:00:00 DAVE itkaycee [facility] 2021-02-19 2021-02-19 Orders ONOFRE Johnson [id number] Univers 00:00:00 00:00:00 Only Shiwan [facility] 350.1.13.10 i ty of [facility] 4.2.7.2.686 [place] [id number] [place] [address] [place] 2021-02-05 2021-02-05 Orders Doctor BLANK 1.2.840.114 [id number] Univers 00:00:00 00:00:00 Only Unassigned, LAURYN 350.1.13.10 ity of [facility] 4.2.7.2.686 Kishore [id number] [address] 2021-01-26 2021-01-26 Orders Doctor ROSAMARIA 1.2.840.114 [id number] Univers 00:00:00 00:00:00 Only Unassigned, LAURYN 350.1.13.10 ity of [facility] 4.2.7.2.686 Kishore as [id number] [address] 2021-01-24 2021-01-24 Orders Doctor ROSAMARIA 1.2.840.114 [id number] Univers 00:00:00 00:00:00 Only Unassigned, LAURYN 350.1.13.10 ity of [facility] 4.2.7.2.686 Kishore as [id number] [address] 2021-01-22 2021-01-22 Orders Doctor ROSAMARIA 1.2.840.114 [id number] Univers 00:00:00 00:00:00 Only Unassigned, LAURYN 350.1.13.10 ity of [facility] 4.2.7.2.686 Kishore as [phone] [address] 2021-01-20 2021-01-20 Orders Doctor BLANK 1.2.840.114 [id number] Univers 00:00:00 00:00:00 Only Unassigned, LAURYN 350.1.13.10 ity of [facility] 4.2.7.2.686 Kishore as [id number] [address] 2021-01-18 2021-01-18 Emergency [facility] [id number] Univers 13:34:00 16:30:00 ALYSSIA perez of [facility] 2021-01-18 2021-01-18 Emergency [facility] [id number] Univers 13:34:00 16:30:00 Alyssia MORRISON 350.1.13.10 i ty [facility] 4.2.7.2.686 [facility] [facility] [id number] [place] [address] Branch 2021-01-17 2021-01-17 Emergency ER GREG BANKS [facility] [id number] [place] 14:30:00 15:26:00 [id number] [facility] 2020-12-06 2020-12-06 Office [facility] 1.2.840.114 [id number] Univers 14:33:18 15:23:38 Visit Luis Daniel Morrison 350.1.13.10 i ty of [place] 4.2.7.2.686 [place] [facility] [id number] [place] [id number] [facility] 2020-12-06 2020-12-06 Outpatient R LUIS DANIEL JOHNSON [facility] 10 [id number] Univers 14:40:00 14:40:00 LUIS DANIEL JOHNSON i ty of [facility] 2020-10-24 2020-10-24 Office Manoj [facility] [id number] Univers 13:31:57 14:01:33 Visit Sukhjinder Nance [facility] 350.1.13.10 ity of [facility] 4.2.7.2.686 [place] [id number] [facility] 028 Branch 2020-10-24 2020-10-24 Outpatient R MANOJ [facility] [id number] Univers 14:00:00 14:00:00 SUKHJINDER perez [facility] 2020-10-22 2020-10-22 [facility]phone [facility] [id number] Univers 00:00:00 00:00:00 [facility]jinder [facility] 350.1.13.10 [place] [phone] [facility] [place] [address] Branch [facility] 2020-10-20 2020-10-20 Emergency [facility] 1.2.550.148 [id number] Univers 22:06:00 22:44:00 Tana Morrison 350.1.13.10 i ty of [place] [id number] [facility] 084 Branch 2020-10-20 2020-10-20 Emergency X [facility] ERT [id number] Univers 22:06:00 22:44:00 TANA perez [facility] 2020-10-20 2020-10-20 Case ONOFRE Allison 1.2.976.198 [id number] Univers 00:00:00 00:00:00 Management Luis Enrique Guillaume [facility] 350.1.13.10 ity of [place] [id number] [address] 2020-10-18 2020-10-18 Telephone ONOFRE Aranda 1.2.840.114 [id number] Univers 00:00:00 00:00:00 Sukhjinder Guillaume [facility] 350.1.13.10 ity of [place] [id number] [address] 2020-10-17 2020-10-17 Office Manoj [facility] 1.2.194.100 [id number] 2171 Univers 14:08:14 14:58:43 Visit Sukhjinder Guillaume [facility] 350.1.13.10 it[place] of [place] [phone] [address] 2020-10-17 2020-10-17 [facility]patient [facility] [id number] Univers 14:30:00 14:30:00 SUKHJINDER [facility] 2020-10-09 2020-10-09 Emergency [facility] 1.2.870.493 [id number] Univers 09:17:00 10:43:00 Alyssia Morrison 350.1.13.10 i ty of [place] [id number] [place] [address] [place] 2020-10-09 2020-10-09 [facility] [id number] Univers 09:17:00 10:43:00 ALYSSIA perez [facility] 2020-09-28 2020-09-28 Orders Doctor ROSAMARIA 1.2.840.114 [id number] Univers 00:00:00 00:00:00 Only Unassigned, LAURYN 350.1.13.10 ity of [facility] 4.2.7.2.686 Kishore as [phone] [address] 2020-08-06 2020-08-06 Outpatient Goyo HUBBARD [facility] [id number] Univers 08:30:00 07:36:59 DONNA perez [facility] 2020-07-25 2020-07-25 Outpatient Paolo [facility] VF [phone] [facility] 05:42:00 05:42:00 _A_AH 31279 Family Practic e 2020-07-09 2020-07-09 Outpatient Paolo VFP VFP [phone] [facility] 09:06:00 09:06:00 _A_AH 69338 Family Practic e 2020-07-09 2020-07-09 Outpatient [facility] [id number] Univers 08:30:00 08:30:00 ity of [facility] 2020-07-05 2020-07-05 Yaa [facility] [place] - [id number] V illage 00:00:00 00:00:00 TonieJacki [facility] Darnell coleman [place]: Medical - Pracrayo casiano [address] VM_[email or web address]_V@_ e [facility], [address] [address], [place] [address] , Ph. 2020-06-12 2020-06-12 [facility] 1.2.840.114 [id number] 00:00:00 00:00:00 Outreach [facility] 350.1.13.10 [facility] 4.2.7.2.686 [place] [id number] 388 2020-06-12 2020-06-12 [facility] 1.2.840.114 [id number] Univers 00:00:00 00:00:00 Outreach [facility] 350.1.13.10 i ty of [place] [phone] Hi dical [address] [place] [address] 2020-05-23 2020-05-23 Orders Doctor ROSAMARIA 1.2.840.114 [id number] 00:00:00 00:00:00 Only UnassignedLAURYN 350.1.13.10 [facility] 4.2.7.2.686 [id number] 009 2020-05-23 2020-05-23 Orders Doctor BLANK 1.2.840.114 [id number] Univers 00:00:00 00:00:00 Only UnassignedLAURYN 350.1.13.10 ity of [facility] 4.2.7.2.686 Kishore as [phone] [address] 2020-05-13 2020-05-13 Emergency [facility] 1.2.567.485 [id number] 1455 11:38:00 12:32:00 Alyssia Morrison 350.1.13.10 [place] 4.2.7.2.686 [place] [id number] 084 2020-05-13 2020-05-13 Emergency [facility] 1.2.981.894 [id number] 1455 [facility] 11:38:00 12:32:00 Alyssia Morrison 350.1.13.10 i ty of [place] 4.2.7.2.686 [place] [facility] [phone] [address] 2020-05-13 2020-05-13 Orders Doctor BLANK 1.2.840.114 [id number] 00:00:00 00:00:00 Only Unassigned, LAURYN 350.1.13.10 [facility] 4.2.7.2.686 [id number] 009 2020-05-13 2020-05-13 Orders Doctor BLANK 1.2.840.114 [id number] Univers 00:00:00 00:00:00 Only Unassigned, LAURYN 350.1.13.10 ity of [facility] 4.2.7.2.686 Kishore as [phone] [address] 2020-02-20 2020-02-20 Orders Doctor BLANK 1.2.840.114 [id number] 00:00:00 00:00:00 Only Unassigned, LAURYN 350.1.13.10 [facility] 4.2.7.2.686 [id number] 009 2020-02-20 2020-02-20 Orders Doctor BLANK 1.2.840.114 [id number] Univers 00:00:00 00:00:00 Only Unassigned, LAURYN 350.1.13.10 ity of [facility] 4.2.7.2.686 Kishore as [id number] [address] 2020-02-04 2020-02-04 Emergency Jamison [facility] 1.2.794.945 [id number] 4864 12:43:00 13:48:00 Tana Garcia [place] 350.1.13.10 [place] 4.2.7.2.686 [place] [id number] 084 2020-02-04 2020-02-04 Emergency [facility] 1.2.329.069 [id number] Univers 12:43:00 13:48:00 Tana S [place] 350.1.13.10 i ty of [place] 4.2.7.2.686 [facility] [id number] [facility] 084 Branch 2019-12-28 2019-12-28 Outpatient GLADIS, [facility] [id number] [place] 08:58:00 08:58:00 DAVID -[id number] [facility] 2019-12-13 2019-12-13 Outpatient AMBREEN[place] [address] [place] 05:32:00 05:32:00 HANA 0922 [facility] 2019-12-06 2019-12-06 Outpatient AMBREEN[place] [address] [place] 05:36:00 05:36:00 HANA 0915 [facility] 2019-12-06 2019-12-06 [facility] - [id number] [place] 00:00:00 00:00:00 Nahun Streeter MD: [address], [place], [place] [facility] [address] [facility] , Ph. h ([phone]) Program 2019-11-23 2019-11-23 Emergency ER MONTENEGRO, [facility] [id number] [place] 18:44:00 20:38:00 STORMY -[id number] [facility] 2019-11-22 2019-11-22 Telephone [facility] ..[id number] 5179 00:00:00 00:00:00 Shefali [place] 350.1.13.10 [place] 4.2.7.2.686 [facility] [phone] [address] 2019-11-22 2019-11-22 Telephone [facility] 1.2.637.854 [id number] Univers 00:00:00 00:00:00 Shefali [place] 350.1.13.10 ity of [place].2.[place] Profess[place] [phone] [address] 2019-11-21 2019-11-21 Office [facility] 1.2.840.114 [id number] 10:05:29 10:53:34 Visit Shefali Morrison 350.1.13.10 [place] 4.2.7.2.686 Professio [id number] [address] 2019-11-21 2019-11-21 Office [facility] 1.2.840.114 [id number] Univers 10:05:29 10:53:34 Visit Shefali Morrison 350.1.13.10 ity of [place].2.[place] Profess[place] [phone] [address] 2019-11-21 2019-11-21 Outpatient R [facility] [id number] [facility] 10:40:00 10:40:00 SHEFALI perez o f [facility] 2019-11-18 2019-11-18 Orders Doctor ROSAMARIA 1.2.840.114 [id number] 00:00:00 00:00:00 Only Unassigned, LAURYN 350.1.13.10 [facility] 4.2.7.2.686 [id number] [facility] 2019-11-18 2019-11-18 Orders Doctor ROSAMARIA 1.2.840.114 [id number] Univers 00:00:00 00:00:00 Only Unassigned, LAURYN 350.1.13.10 ity of [facility] 4.2.7.2.686 Kishore as [phone] [address] 2019-08-12 2019-08-12 Outpatient Tonie-Veronicao [facility] [address] [place] [address] 11:11:00 11:11:00 _A_AH 33525 Family Practic e 2019-07-20 2019-07-20 Outpatient [facility] [address] 09:28:00 09:28:00 _A_AH 71650 Family Practic e 2019-07-05 2019-07-05 Outpatient Tonie-Veronicao VFP VFP 792 [id number] [facility] 09:42:00 09:42:00 _A_AH 30469 Family Practic e 2019-07-05 2019-07-05 Yaa VFP [place] - [id number] V illage 00:00:00 00:00:00 Tonie-Veronica [facility] Fam jonathon coleman, [place]: Medical - Practi c [address] _[email or web address]_V@H_ e [facility], [address] [place] [address], [place] [address] , Ph. 2019-06-22 2019-06-22 Outpatient Tonie-Veronicao VFP VFP [address] [place] [address] 10:56:00 10:56:00 _A_AH 64627 Family Practic e 2019-04-21 2019-04-21 Office EVELYNE Sanchez 1.2.840.114 [id number] Univers 08:09:30 08:24:30 Visit [facility] 350.1.13.10 it y of Surgical 4.2.7.2.686 Kishore as Specialti [phone] Hi dical es 198 [facility] 2019-04-21 2019-04-21 Orders Doctor ROSAMARIA 1.2.840.114 [id number] Univers 00:00:00 00:00:00 Only Unassigned, LAURYN 350.1.13.10 ity of [facility] 4.2.7.2.686 Kishore as [phone] [address] 2019-04-19 2019-04-19 Emergency ER NELSON [facility] [id number] 970 [place] 21:06:00 22:33:00 LUIS FELIPE [id number] [facility] 2019-02-25 2019-03-22 Outpatient 3 DENIS DUMONT 1207 55073- [employer] 14:12:00 15:28:00 RUFINO [id number] Hospi l ([facility]) 2017-01-22 2017-01-22 Emergency ER NELSON [facility] [id number] 970 [place] 01:08:00 01:53:00 LUIS FELIPE [id number] [facility] 2013-10-21 2013-10-21 [facility] C0563 [address]297 [place] 20:10:00 21:22:00 Jonny -[id number] [facility] Results Test Description Test Time Test Comments Results Result Comments Source TROPONIN I 2022-10-03 10:40:44 Test Item Value Reference Range Interpretation Comme nts TROPONIN I (test code = 7779519459) 0.008 ng/mL <=0.034 LA (test code = LA) Reference (Normal) Range (defined by the 99th percentile reference [...] to patient's use of biotin. Lab Interpretation (test code = Normal 58602-0) [facility] [id number] 10:30:02 Test Item Value Reference Range Interpretation Comments MAGNESIUM (test code = 8935584505) 2.3 mg/dL 1.7-2.4 Lab Interpretation (test code = Normal 43456-9) [facility] (Total Cholesterol, Triglycerides, HDL)2022-10-03 10:30:02 Test Item Value Reference Range Interpretation Comments CHOL (test code = 8186295236) 146 mg/dL 120-200 HDL (test code = 6487601769) 27 mg/dL >=40 L HDLC RATIO (test code = 1072978468) 5.4 <=5.0 H TRIG (test code = 9056243232) 139 mg/dL 30-170 LDL CHOL (test code = 03388-2) 91 mg/dL <=160 VLDL (test code = 6698047888) 28 mg/dL 5-60 Lab Interpretation (test code = Abnormal 52380-8) [facility] Met[facility] Panel (NA, K, CL, CO2, GLUCOSE, BUN, CREATININE, CA)2022-10-03 10:29:41 Test Item Value Reference Range Interpretation Comments NA (test code = 139 mmol/L 135-145 8778371308) K (test code = 3.9 mmol/L 3.5-5.0 7351876336) CL (test code = 111 mmol/L 98-108 H 9270983766) CO2 TOTAL (test code = 26 mmol/L 23-31 2915079532) AGAP (test code = 2 2-16 2729408291) BUN (test code = 17 mg/dL 7-23 7596405881) GLUCOSE (test code = 90 mg/dL 70-110 8776662796) CREATININE (test code = 0.81 mg/dL 0.60-1.25 3624222187) CALCIUM (test code = 8.2 mg/dL 8.6-10.6 L 6229351554) eGFR (test code = 99.7 mL/min/1.73m2 0173458082) LA (test code = LA) Association of [...] tests). Lab Interpretation Abnormal (test code = 09012-4) [facility]rop[facility] [id number] 03:37:43 Test Item Value Reference Range Interpretation Comments TROPONIN I (test code = 0.007 ng/mL <=0.034 4569465540) LA (test code = LA) Reference (Normal) Range (defined by the 99th percentile reference [...] biotin. Lab Interpretation Normal (test code = 06929-8) [facility] South[facility]YROID STIMULATING [id number] 03:09:27 Test Item Value Reference Range Interpretation Comments TSH (test code = See_Comment Biotin has been 4034812699) reported to cau se a negative bias, interpret resul ts relative to pat ient's use of biotin. [Automated mess age] The system Medallia generated this result transmitted ref erence range: 0.45 - 4 .70 mIU/L. The refe rence range was not u sed to interpret this result as normal/abnor mal. Lab Interpretation (test Normal code = 15012-3) [facility]GLYCOSYLATED HEMOGLOBIN (A1C)2021-09-21 00:17:30 Test Item Value Reference Range Interpretation Comments HGB A1C (test code = 5.1 % 4.0-5.7 4548-4) LA (test code = LA) Reference RangesNormal: <5.7%Prediabetes: 5.7 - 6.4%Diabetes: > 6.5% Lab Interpretation (test Normal code = 82454-1) [facility] SouthProthrombin Time / [id number] 22:31:02 Test Item Value Reference Range Interpretation Comments PROTIME PATIENT (test See_Comment [Auto mated message] code = 5964-2) The system wh ich generated this result transmitted ref erence range: 10.1 - 1 2.6 Seconds. The re ference range was not u sed to interpret this result as normal/abnor mal. INR (test code = 6301-6) Nor mal INR <1.1; Warfarin Therap eutic range 2.0 to 3. 0 or 2.5 to 3.5, dep ending upon the indica tions. Lab Interpretation (test Normal code = 41087-1) [facility]TR[facility] [id number] 22:21:58 Test Item Value Reference Interpretation Comments Range TROPONIN I (test 0.009 ng/mL See_Comment [Automated code = 9459230544) message] The system which generated this result [...] biotin. Lab Interpretation Normal (test code = 69343-6) [facility] SouthTransthoracic echo (TTE)2021-09-20 21:49:31 Test Item Value Reference Range Interpretation Comments Height (test code = in 0424103650) Weight (test code = lbs 3223230303) Systolic BP (test code = mmHg 8410548358) Diastolic BP (test code = mmHg 0518470974) Heart Rate (test code = bpm 3458178972) LVOT stroke volume (test 49.90 cm3 code = 0184209800) EF(Teich) (test code = 58.10 % 1135957490) LVIDD (test code = 4.20 cm 0226522541) LVIDS (test code = 2.90 cm 7027183384) IVS (test code = 0.95 cm 0395097256) LVPWD (test code = 0.93 cm 5330767722) LVOT diameter (test code = 1.94 cm 4956828519) FS (test code = 30 % 5523581906) MV Peak E Checo (test code = 80.6 cm/s 4265978633) MV Peak A Checo (test code = 39.8 cm/s 8811869641) E/A ratio (test code = ratio 5888005954) E wave decelartion time 0.15 s (test code = 4430586623) LA volume (BP) (test code 52.2 mL = 5445395767) LVOT peak checo (test code = 77.6 cm/s 7047136974) LVOT mn grad (test code = mmHg 5362382604) LA size (test code = 2.22 cm 2238962314) LAV(MOD-sp2) (test code = 38.80 mL 7416222889) LAV(MOD-sp4) (test code = 61.40 mL 5471863304) Tapse (test code = 2.24 cm 0406657229) Aortic valve mean velocity 56.6 cm/s (test code = 5528816247) Ao peak checo (test code = 81.4 cm/s 4067562959) Ao VTI (test code = 17.9 cm 2884882754) AV LVOT peak gradient mmHg (test code = 7799547002) LVOT peak VTI (test code = 17.0 cm 7734398588) AV area by cont VTI (test 2.8 cm2 code = 3794099971) AV area peak checo (test 2.8 cm2 code = 6657314417) LV V1 mean (test code = 50.80 cm/s 7843185064) Ao max PG (test code = 2.70 mm[Hg] 3041680327) MV Prop V (test code = 51.60 cm/s 9669992659) Ao root annulus (test code 3.0 cm = 1067728946) Ao root diam (test code = 3.00 cm 4879294934) AV peak gradient (test mmHg code = 6488251826) AV valve area (test code = 2.80 cm2 8231942097) AV mean gradient (test mmHg code = 9330872341) Aortic root (test code = 3.0 cm 5771774919) PW (test code = 0.93 cm 0.6-1.1 5636965085) EF - 2D (test code = 58.10 % 46817439) Interventricular Septum 0.95 cm Diastolic Thickness by 2D (test code = 4486269) LA Volume Index (BP) (test 28.4 mL/m2 code = 6261767070) BSA (test code = 1.84 m2 2766682349) LV Diastolic Volume (BP) 108.3 mL (test code = 9844958027) EF(MOD-bp) (test code = 47.20 % 5933088848) LV Systolic Volume (BP) 57.2 mL (test code = 4068539977) SV(MOD-bp) (test code = 51.10 mL 9638583063) EF (test code = 47 % 0543903659) Left Ventricular Stroke 51.1 mL Volume by 2-D Biplane-MOD (test code = 4740444) Radiology Study observation (narrative) (test code = 57430-4) LA (test code = LA) ?Left?Ventricle: Normal wall motion. Normal systolic function with a visually estimated EF of 55 - 60%. Normal diastolic function. ?Right?Ventricle: Right ventricle size is normal. Normal systolic function. [facility] BranchLIPID PANEL (27707)(TOTAL CHOLESTEROL, TRIGLYCERIDES, HDL)2021-09-20 20:39:18 Test Item Value Reference Range Interpretation Comments CHOL (test code = 170 mg/dL 120-200 8539429336) HDL (test code = 29 mg/dL >40 L 5557344274) HDLC RATIO (test code = See_Comment H [Au tomated message] 4532557355) The system Medallia generated this result transmit judit reference range : <=5.0. The refe rence range was not u sed to interpret th is result as normal/abnormal . TRIG (test code = 130 mg/dL 30-170 8292563192) LDL CHOL (test code = 115 mg/dL See_Comment [Auto mated message] 10750-6) The system Medallia generated this result transmit judit reference range : <=160. The refe rence range was not u sed to interpret th is result as normal/abnormal . VLDL (test code = 26 mg/dL 5-60 8723009087) Lab Interpretation (test Abnormal code = 04790-1) [facility]MAG[facility]IUM2022-07-01 20:39:18 Test Item Value Reference Range Interpretation Comments MAGNESIUM (test code = 2650673636) 2.2 mg/dL 1.7-2.4 Lab Interpretation (test code = Normal 48965-6) [facility] SouthPhosphorus [id number] 20:38:58 Test Item Value Reference Range Interpretation Comments PHOSPHORUS (test code = 7445872044) 3.0 mg/dL 2.5-5.0 Lab Interpretation (test code = Normal 79991-4) [facility] SouthPO[facility] GLUCOSE (AUTOMATED)2021-09-20 17:19:48 Test Item Value Reference Range Interpretation Comments POCT GLU (test code = 9470158440) 109 mg/dL 70-110 Lab Interpretation (test code = Normal 41889-0) [facility] [id number] 11:59:57 Test Item Value Reference Interpretation Comments Range TROPONIN I (test 0.007 ng/mL See_Comment [Automated code = 4281803033) message] The system which generated this result [...] biotin. Lab Interpretation Normal (test code = 61684-1) [facility] [id number] 07:04:25 Test Item Value Reference Interpretation Comments Range TROPONIN I (test 0.007 ng/mL See_Comment [Automated code = 4056044765) message] The system which generated this result [...] biotin. Lab Interpretation Normal (test code = 26824-5) [facility] Metabolic Panel (NA, K, CL, CO2, GLUCOSE, BUN, CREATININE, CA)2021-09-20 06:52:46 Test Item Value Reference Range Interpretation Comments NA (test code = 140 mmol/L 135-145 4944874924) K (test code = 3.5 mmol/L 3.5-5.0 0394920104) CL (test code = 107 mmol/L 98-108 2371247394) CO2 TOTAL (test code = 27 mmol/L 23-31 5824897024) AGAP (test code = 2-16 3377679649) BUN (test code = 11 mg/dL 7-23 5262424017) GLUCOSE (test code = 107 mg/dL 70-110 5570354070) CREATININE (test code = 0.77 mg/dL 0.60-1.25 2803640876) CALCIUM (test code = 8.5 mg/dL 8.6-10.6 L 5462839140) eGFR (test code = mL/min/1.73m2 0811011098) LA (test code = LA) Association of [...] tests). Lab Interpretation Abnormal (test code = 73389-0) [facility] with [id number] 06:41:06 Test Item Value Reference Range Interpretation Comments WBC (test code = See_Comment [Automated 0590-2) message] The sy stem which generated this result transmitted reference range : 4.20 - 10.70 10*3/?L. The reference range was not used to interpret this result as normal/abnormal . RBC (test code = See_Comment L [Automated 309-8) message] The sy stem which generated this [...] RDW-SD (test code = 46.3 fL 38.5-51.6 60603-5) RDW-CV (test code = 14.0 % 12.1-15.4 788-0) PLT (test code = See_Comment [Automated 777-3) message] The sy stem which generated this result transmitted reference range : 150 - 328 10*3/ ?L. The reference r randal was not used to interpret this result as normal/abnormal . MPV (test code = 10.6 fL 9.8-13.0 02264-2) NRBC/100 WBC (test See_Comment [Automat ed code = 5910023255) message] The system which generated this result transmitted reference range : 0.0 - 10.0 /100 WBCs. The refer ence range was not u sed to interpret th is result as normal/abnormal . NRBC x10^3 (test code <0.01 See_Comment [Auto mated = 9300794357) message] The s ystem which generated this result transmitted reference range : 10*3/?L. The reference range was not used to interpret this result as normal/abnormal . GRAN MAT (NEUT) % 41.8 % (test code = 770-8) IMM GRAN % (test code 0.30 % = 1383792800) LYMPH % (test code = 43.2 % 736-9) MONO % (test code = 8.7 % 5905-5) EOS % (test code = 5.6 % 713-8) BASO % (test code = 0.4 % 706-2) GRAN MAT x10^3(ANC) 3.13 10*3/uL 1.99-6.95 (test code = 9648715143) IMM GRAN x10^3 (test <0.03 0.00-0.06 code = 9114236204) LYMPH x10^3 (test code 3.23 10*3/uL 1.09-3.23 = 731-0) MONO x10^3 (test code 0.65 10*3/uL 0.36-1.02 = 742-7) EOS x10^3 (test code = 0.42 10*3/uL 0.06-0.53 711-2) BASO x10^3 (test code 0.03 10*3/uL 0.01-0.09 = 704-7) Lab Interpretation Abnormal (test code = 37348-2) [facility] [id number] 01:50:55 Test Item Value Reference Interpretation Comments Range TROPONIN I (test 0.007 ng/mL See_Comment [Automated code = 1009427188) message] The system which generated this result [...] biotin. Lab Interpretation Normal (test code = 64944-9) [facility] SouthN-TERMINAL [id number] 01:47:34 Test Item Value Reference Range Interpretation Comments NT-proBNP (test code 116 pg/mL See_Comment [Autom ated = 8704427680) message] The system which generated this result transmitted reference range : <=125. The reference range was not used to interpret this result as normal/abnormal . LA (test code = LA) Biotin has been reported to cause a negative bias, interpret results relative to patient's use of biotin. Lab Interpretation Normal (test code = 30776-2) [facility]. METABOLIC PANEL (94405)2021-09-20 01:38:35 Test Item Value Reference Range Interpretation Comments NA (test code = 140 mmol/L 135-145 1847073631) K (test code = 3.8 mmol/L 3.5-5.0 2509352796) CL (test code = 106 mmol/L 98-108 2740066101) CO2 TOTAL (test code 26 mmol/L 23-31 = 1276080367) AGAP (test code = 2-16 9146321990) BUN (test code = 14 mg/dL 7-23 5525797652) GLUCOSE (test code = 103 mg/dL 70-110 4703732670) CREATININE (test code 0.83 mg/dL 0.60-1.25 = 1777944589) TOTAL BILI (test code 0.3 mg/dL 0.1-1.1 = 9328822569) CALCIUM (test code = 8.9 mg/dL 8.6-10.6 2288394034) T PROTEIN (test code 6.4 g/dL 6.3-8.2 = 4914802503) ALBUMIN (test code = 3.9 g/dL 3.5-5.0 0392449344) ALK PHOS (test code = 99 U/L 34-122 2987598203) ALTv (test code = 12 U/L 5-50 2-6) AST(SGOT) (test code 17 U/L 13-40 = 9106121915) eGFR (test code = mL/min/1.73m2 7073615935) LA (test code = LA) Association of [...] or urine or abnormalities in imaging tests). [facility] [id number] 01:38:15 Test Item Value Reference Range Interpretation Comments APTT Patient (test See_Comment [Automat ed code = 3173-2) message] The system which generated this result transmitted reference range : 23 - 38 Seconds . The reference range was not used to interpr et this result as normal/abnormal . LA (test code = LA) The [facility] patient population mean normal value for aPTT is 30 seconds. Lab Interpretation Normal (test code = 04812-1) [facility]15 Test Item Value Reference Range Interpretation Comments LIPASE (test code = 7164274699) 100 U/L 0-220 Lab Interpretation (test code = Normal 29222-7) [facility]PROT[facility] / [id number] 01:36:15 Test Item Value Reference Range Interpretation Comments PROTIME PATIENT (test See_Comment [Auto mated message] code = 5964-2) The system Chat& (ChatAnd) generated this result transmitted ref erence range: 12.0 - 1 4.7 Seconds. The re ference range was not u sed to interpret this result as normal/abnor mal. INR (test code = 6301-6) Nor mal INR <1.1; Warfarin Therap eutic range 2.0 to 3. 0 or 2.5 to 3.5, dep ending upon the indica tions. Lab Interpretation (test Normal code = 19455-6) [facility] [id number] 01:28:36 Test Item Value Reference Range Interpretation Comments WBC (test code = See_Comment [Automated message] 6690-2) The system Medallia generated this result transmitted ref erence range: 4.20 - 1 0.70 10*3/?L. The re ference range was not u sed to interpret this result as normal/abnor mal. RBC (test code = See_Comment [Automated message] 789-8) The system Medallia generated this result transmitted ref erence range: [...] RDW-SD (test code 46.6 fL 38.5-51.6 = 52586-3) RDW-CV (test code 13.9 % 12.1-15.4 = 788-0) PLT (test code = See_Comment [Automated message] 777-3) The system Blaze DFM h generated this result transmitted ref erence range: 150 - 32 8 10*3/?L. The re ference range was not u sed to interpret this result as normal/abnor mal. MPV (test code = 10.3 fL 9.8-13.0 68102-1) NRBC/100 WBC (test See_Comment [Automat ed message] code = 8180486965) The syste m which generated this result transmitted ref erence range: 0.0 - 10 .0 /100 WBCs. The refer ence range was not u sed to interpret this result as normal/abnor mal. NRBC x10^3 (test <0.01 See_Comment [Automated message] code = 2662339241) The syste m which generated this result transmitted ref erence range: 10*3/?L. The reference range was not used to interpr et this result as normal/abnormal . GRAN MAT (NEUT) % 51.0 % (test code = 770-8) IMM GRAN % (test 0.20 % code = 3755102928) LYMPH % (test code 34.9 % = 736-9) MONO % (test code 8.7 % = 5905-5) EOS % (test code = 4.8 % 713-8) BASO % (test code 0.4 % = 706-2) GRAN MAT 4.61 10*3/uL 1.99-6.95 x10^3(ANC) (test code = 6876439034) IMM GRAN x10^3 <0.03 0.00-0.06 (test code = 6017440440) LYMPH x10^3 (test 3.16 10*3/uL 1.09-3.23 code = 731-0) MONO x10^3 (test 0.79 10*3/uL 0.36-1.02 code = 742-7) EOS x10^3 (test 0.43 10*3/uL 0.06-0.53 code = 711-2) BASO x10^3 (test 0.04 10*3/uL 0.01-0.09 code = 704-7) [facility] [id number] 11:05:00 Test Item Value Reference Range Interpretation [...] of Reference Range s BMP, BASIC METABOLIC [id number] 15:07:00 Test Item Value Reference Range Interpretation [...] glucose = GLUCOSE) normal <100 MG/ DL- [employer] recommendation* * CALCIUM (test code 9.4 MG/DL 8.4-10.2 = CABLOOD) GFR (test code = 95 A GFR of >9 0 GFR) mL/min/1.73m2 mL/min/1.73m2 is considered norm al. [id number] 15:07:00 Test Item Value Reference Range Interpretation Comments MG (test code = MG) 2.4 mg/dL 1.6-2.3 H PROTHROMBIN TIME WITH [id number] 14:02:00 Test Item Value Reference Range Interpretation Comments PROTHROMBIN TIME 13.7 SECONDS 12.0-14.6 INR Usual R randal = 2 (test code = PT) to 3 for pr evention of deep vein thrombosis (DVT ) INR (test code = INR) 1.1 [id number] 13:45:00 Test Item Value Reference Range Interpretation [...] K/UL 1.2-7.2 = NEUT) CHEST XR 2 [id number] 12:25:00[address] [id number] IMAGING REPORTPatient Name: Yamil DECKER of Service: [id number]: [id number] Sex: M Order #: [id number] Room: [facility]: 1970 X-Ray Number: [id number] Record Number: [id number] Hospital Number: [id number] Physician: NELIDA ROTH -Ordering Physician: NELIDA ROTH -CHEST.08/24/2018 12:06 PMHistory: Short of breath.Technique: PA and lateral chest projections.Findings: PA and lateral views of the chest demonstrate normal heart sizeand emphysematous but focally clear lungs. No infiltrates or abnormalitiesare depicted. The osseous structures appear intact.Impression:No acute-appearing cardiopulmonary abnormalities .Electronically Signed By: Conner Bruce M.D., 08/24/2018 12:23 PMLegally authenticated by ARLETTE Wolf 2018-08-24 12:23:24PET, CARDIAC PERFUSION MULTIPLE STUDIES, REST AND [id number] 15:30:00Reason for exam:->chest pain, multiple risk factors for CADFINAL REPORT PROCEDURE: Rest/Stress MYOCARDIAL PERFUSION PET with regadenoson\\XA9\\ CPT CODE: 15800 INDICATION: Chest pain, multiple risk factors for [...] of 0.4 mg of regadenoson. Radiotracer was [id number] seconds after start of stress. Heart rate [...] extr acardiac tracer distribution. 6. No previous [facility] study for comparison. NONINVASIVE RISK STRATIFICATION: The above findings are considered low risk (<1% annual mortality rate) based on the following criterion:- Normal or small myocardial perfusion defect at rest or with stress(JACC. 2012;59(9):857- 81.) Signed: Bekah Cota MDReport Verified Date/Time: 11/27/2017 15:30:18 Reading Location: [address] Reading Room HEMOGLOBIN [id number] 09:48:00 Test Item Value Reference Range Interpretation Comments HEMOGLOBIN A1C (BEAKER) (test code = 4.9 % 4.3-6.1 368) BASIC METABOLIC [id number] 06:47:00 Test Item Value Reference Range Interpretation [...] DATA TO CALCULA TE ESTIMATED GFR. TROPONIN [id number] 06:44:00 Test Item Value Reference Range Interpretation [...] failure, acidosis, acute neurological disease, and persistent tachyarrhythmia.[id number] 06:43:00 Test Item Value Reference Range Interpretation Comments MAGNESIUM (BEAKER) (test code = 2.7 mg/dL 1.6-2.6 H 627) CBC W/PLT COUNT & AUTO [id number] 06:09:00 Test Item Value Reference Range Interpretation [...] PERCENT (BEAKER) (test code = 2801) TROPONIN [id number] 01:49:00 Test Item Value Reference Range Interpretation [...] acute neurological disease, and persistent tachyarrhythmia.BASIC METABOLIC [id number] 01:49:00 Test Item Value Reference Range Interpretation [...] m DATA TO CALCULA TE ESTIMATED GFR. [id number] 01:42:00 Test Item Value Reference Range Interpretation Comments MAGNESIUM (BEAKER) (test code = 2.2 mg/dL 1.6-2.6 627) LIPID [id number] 01:42:00 Test Item Value Reference Range Interpretation [...] 130-159 High 160-189 Very High >=190HEPATIC FUNCTION [id number] 01:42:00 Test Item Value Reference Range Interpretation [...] 6-55 347) CBC W/PLT COUNT & AUTO [id number] 00:59:00 Test Item Value Reference Range Interpretation [...] 0-1 PERCENT (BEAKER) (test code = 2801) Notes Date/Time Note Provider Source 2018-10-22 10:22:57-00:00 NELIDA ROTH [place] [id number] / Patient Name: ABBIE DECKER Patient#: [id number] Admission Date: 10/22/2018 Date of : 1970 Age/Gender: 48/M HSSV/RM/BED: OOS/ Admitting Phys: Nelida Roth MD PROGRESS NOTE DATE: 10/22/2018 DIAGNOSIS Leukocytosis. HISTORY OF PRESENTING COMPLAINT Patient is a 48-year-old white male who was refe rred to me by Dr. Gary Tavares for further evaluation and management of leukocytosis, is here for the regular scheduled followup appointment. He had a n extensive workup done when I saw him almost 8 weeks ago, and he is now here f or the regular scheduled followup appointment. He is apparently doing fin e except for weakness and tiredness. His ABL/BCR rearrangement is negative . Chest x-ray is normal, and his JAK2 mutation is negative as well, ruling ou t myeloproliferative disorder/chronic myelogenous leukemia. He is mahamed arently doing pretty good. REVIEW OF SYSTEMS He has no fever, chills. His fatigability level is 6/10. He has night sweats. No significant visual problems. No loss of weigh t. No loss of appetite. No epistaxis, gingival bleed, easy bruisability. He has some dyspnea on exertion some cough productive of sputum, has a history o f COPD but no hemoptysis. No paroxysmal nocturnal dyspnea, orthopnea, palpita tions, pleuritic-type chest pain, chest pain on exertion. No nausea, vomitin g, diarrhea, abdominal pain, hematochezia, melena. He has some joint pain, kn ee pain. He has sciatica. Also, complains of headache, pain in the right e ye, dizziness sometimes. He has no tingling, numbness of the extremity. He has g ood control of bowel and bladder. No polyuria, polydipsia, intolerance t o heat or cold. PHYSICAL EXAMINATION GENERAL: He appears to be well-nourished and has no signs of acute distress. VITAL SIGNS: His weight is 146.4 pounds. Blood p ressure is 119/80, pulse of 63, O2 sat is 99%, temperature is 98.1. Respirat ory rate of 18. HEENT: [place] and moist mucous membranes without a ny icterus. Extraocular muscles intact. Pupils are round and reactive to light and accommodation. Tympanic membranes and external ear canals are n ormal. Oropharyngeal, nasal mucous membranes normal. NECK: The neck is supple. There is no jugular ve nous distension, no thyromegaly, no masses. LYMPH NODE SURVEY: Cervical, supraclavicular, ax illary, and inguinal lymph nodes are negative. LUNGS: Lungs are clear to auscultation. HEART: S1, S2, rate and rhythm regular without a ny gallop or murmur. ABDOMEN: Abdomen is soft. There is no hepatosple nomegaly, no masses. Bowel sounds are positive. EXTREMITIES: Extremities are without any edema, cyanosis, clubbing. LABORATORY INVESTIGATION Shows that his WBC count is 9.7, hemoglobin of 1 3.8, hematocrit of 41.8, and platelets of 212. Liver function tests are jennifer l. Albumin is normal. LDH is 120; it is normal. ASSESSMENT Legally authenticated by MARIANN KRAUSE - ONCOLOG Y 2018-10-25 09:28:36 1. Leukocytosis. 2. Coronary artery disease. 3. Hyperlipoproteinemia. 4. History of emphysema, chronic obstructive pul monary disease. 5. Patient is legally blind. 6. Schizophrenia. 7. Anxiety. 8. Depression. 9. Hypertension. 10.Nicotine abuse. PLAN AND RECOMMENDATION I think his leukocytosis was temporary and may b e related to COPD and upper respiratory tract infection. His white cells are completely normal. The differential is normal, and the microscopic pict ure is normal as well. He has no evidence of myeloproliferative disorder or ch ronic myelogenous leukemia. Since his white cell counts are back to normal, I do not feel compelled for intervention. We will see him back in 4 months, recheck his white cell count. If it is normal, then he will be discharged from my care to let the [facility] physician, Dr. Tavares, take care of him. Nelida Roth MD TT: 10/22/2018 10:22:57 /WILLAL /[id number] Electronically Authenticated by: Nelida Roth M.D. on 10/25/2018 09:28 AM CDT Legally authenticated by MARIANN KRAUSE - ONCOLOG Y 2018-10-25 09:28:36 2018-08-30 23:31:05-00:00 THU LAMB [address] [address] Patient Name: ABBIE DECKER Patient#: [id number] Admission Date: 08/30/2018 Date of : 1970 Age/Gender: 48/M HSSV/RM/BED: CLB/ Admitting Phys: Thu Lamb MD OPERATIVE NOTE DATE OF SURGERY: 08/30/2018 SURGEON: Thu Lamb MD BRIEF PRESENTATION A 48-year-old male with tobacco abuse, history o f CAD presenting with an abnormal stress test with ST depressions in infe rior leads. MAIN FINDINGS 1. RCA is a large dominant vessel with a widely patent posterolateral branch with multiple branches and a large PDA with BENSON -3 flow. 2. Left main is normal and short. 3. LAD is a large-caliber wrap-around vessel wit h no disease. There is a medium-caliber diagonal branch in the midportion with BENSON-3 flow. 4. Circumflex artery is a large-caliber vessel as well with a high OM1 medium- caliber branch with no disease and BENSON-3 flow. There is an OM2 vessel as well which is large with BENSON-3 flow and an AV g roove portion of the circ is also without any disease. There is a ramus in termedius branch with mild tortuosity with no disease and BENSON-3 flow. 5. LVEDP is 20 mmHg. LV-gram shows an EF of 60% to 65% with no wall motion abnormalities. CONCLUSION Normal coronaries, normal ejection fraction. RECOMMENDATIONS Continue optimal medical therapy. No indication for PCI. PROCEDURE DETAILS Moderate sedation services were provided by patrick hopkins overseeing the independent nurse's administration of the sedating medicatio ns along with monitoring the patient's condition for 15 minutes. The patient has consented to the elective procedure after risks and benefits of the proced ure were explained to the patient in detail. A 6-Swedish [place] sheath was c arefully placed in the right radial artery without any complications via Seld isa technique. Over a 0.035 J- wire, a 5-Swedish TIG4 diagnostic catheter was morton ccessfully crossed across the aortic valve into the LV, and a hand-injection L V-gram was performed in the MURRIETA view. The catheter was pulled back into the aort a with no gradient and was carefully engaged in the ostium of the RCA with no difficulty, and multiple angiograms of the RCA were performed in differen t orthogonal views. The catheter then was disengaged from RCA and was ca refully engaged in the ostium of the left main with no difficulty and an angiogra m of LAD and circumflex arteries was performed in different orthogonal views. The catheter then was disengaged left main and was removed from the sheath over t he wire. The right radial sheath was removed, and a TR band was placed on the right wrist for patent hemostasis. Patient remained hemodynamically sta ble and had no complications. Legally authenticated by ADONIS ANDINO 2018-10-06 10:57:24 Thu Lamb MD TT: 08/30/2018 23:31:05 RP/MODL /[id number] Electronically Authenticated by: Adonis Andino M.D. on 10/06/2018 10:57 AM CDT Legally authenticated by ADONIS ANDINO 2018-10-06 10:57:24
[2022-10-03 22:51] LABS: Absolute Lymphocytes (CBC) 2.6 K/uL (0.7-4.9); Hematocrit 40.9 % (39.6-49.0); Lymphocytes % 33.4 % (15.3-44.8); MPV 8.5 fL (7.6-11.3); RBC Red Blood Cell Count 4.39 M/uL (4.33-5.43)
[2022-10-03 22:56] LABS: Specific Gravity 1.014 (1.005-1.030); Urine Bilirubin NEGATIVE (Negative); Urine Blood Negative (Negative); Urine Clarity Clear (Clear); Urine Color Light-Yellow (Yellow); Urine Glucose NEGATIVE (Negative); Urine Protein NEGATIVE (Negative); Urine Urobilinogen Normal (Normal)
[2022-10-03 22:58] LABS: Protime INR 0.95
[2022-10-03 23:10] LABS: ALT/SGPT 21 U/L (16-61); AST/SGOT 10 U/L (15-37); Albumin 3.4 g/dL (3.4-5.0); Alkaline Phosphatase 111 U/L (45-117); BUN Blood Urea Nitrogen 15 mg/dL (7-18); Bicarbonate 28 mEq/L (21-32); Bilirubin Total 0.2 mg/dL (0.2-1.0); Glomerular Filtration Rate 101 ml/min (=/>90); Glucose Level 94 mg/dL (74-106); Magnesium 2.5 mg/dL (1.6-2.4); Potassium 4.2 mEq/L (3.5-5.1); Protein, Total 6.9 g/dL (6.4-8.2); Sodium Level 138 mEq/L (136-145); Troponin High Sensitivity 10.3 pg/mL (<58.9)
[2022-10-03 23:14] LABS: Bilirubin Direct < 0.1 mg/dL (0-0.2); Bilirubin Indirect, Calculated ND mg/dL (0.2-0.8)
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
--- NOTE | 2022-10-03 23:58 | RAD REPORT ---
EXAM DESCRIPTION: CT - Thoracic Spine Wo Cont - 10/03/2022 11:51 pm CLINICAL HISTORY: Radiculopathy. PAIN COMPARISON: No comparisons TECHNIQUE: Axial CT imaging through the thoracic spine was performed with coronal and sagittal re-fo rmatted images. All CT scans are performed using dose optimization technique as appropriate and may include automated exposure control or mA/KV adjustment according to patient size. FINDINGS: Vertebral body heights and disc spaces are maintained. A compression fracture is not prese nt. No significant disc space narrowing. Thoracic spine alignment is within normal limits. No paraspinal masses or hematoma. Intervertebral disc detail is inherently limited on CT without gross findings of canal compromise. IMPRESSION: No thoracic spine fracture identified.
--- NOTE | 2022-10-04 | RAD REPORT ---
EXAM DESCRIPTION: CT - Spine Lumbar Wo Con - 10/03/2022 11:51 pm CLINICAL HISTORY: LOWER BACK PAIN COMPARISON: Spine Lumbar Wo Con dated 09/06/2020 TECHNIQUE: Axial noncontrast CT imaging of the lumbar spine was performed with coronal and sagittal re-formatted images. All CT scans are performed using dose optimization technique as appropriate and may include automated exposure control or mA/KV adjustment according to patient size. FINDINGS: No acute lumbar spine fracture seen. Mild degenerate disc disease with disc height loss an d facet hypertrophy. No significant central spinal stenosis Paraspinal tissues are normal in thickness. No paraspinal abscess or hematoma seen. Intervertebral disc disease assessment is inherently limited by CT. Within these limitations, no high -grade canal stenosis suspected. Left nephrolithiasis IMPRESSION: No lumbar spine fracture identified.
[2022-10-04] MEDS ORDERED: FENTANYL CITR 100 MCG/2 ML ONE (00:40)
[2022-10-04] MEDS ORDERED: ONDANSETRON 4 MG/2 ML VIAL ONE (00:40)
[2022-10-04] MEDS ORDERED: DIAZEPAM 10 MG/2 ML INJ SYRINGE ONE (02:07)
[2022-10-04] MEDS ORDERED: KETOROLAC 30 MG/ML INJ ONE (02:08)
[2022-10-04] MEDS ORDERED: CYCLOBENZAPRINE 10 MG TAB ONE (02:08)
[2022-10-04] MEDS ORDERED: NA CHLORIDE 0.9% 1,000 ML ONE (02:13)
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
[2022-10-04 05:53] VITALS: BP 106/61; TEMP 97.6; O2SAT 98
--- NOTE | 2022-10-04 23:07 | RAD REPORT ---
EXAM DESCRIPTION: XR Chest, 1 View CLINICAL HISTORY: The patient is 52 years old and is Male; CHEST PAIN TECHNIQUE: Frontal view of the chest. COMPARISON: No relevant prior studies available. FINDINGS: Lungs: Unremarkable. No consolidation. Pleural space: Unremarkable. No pneumothorax. Heart: Unremarkable. Mediastinum: Unremarkable. Bones/joints: Unremarkable. IMPRESSION: No acute findings in the chest. Electronically signed by: Cristo Cassidy MD 10/04/2022 1:08 AM CDT Due to temporary technical issues with the PACS/Fluency reporting system, reports are being signed by the in house radiologists without review as a courtesy to insure prompt reporting. The interpreting radiologist is fully responsible for the content of the report.
--- NOTE | 2022-10-06 11:50 | EKG ---
Test Date: 2022-10-03 Test Time: 22:37:57 Portrait Painter: ISACC MEASUREMENT RESULTS: Intervals: Rate: 56 VT: 188 QRSD: 90 QT: 414 QTc: 399 [place]: P: 79 VT: 188 QRS: 93 T: 75 INTERPRETIVE STATEMENTS: Sinus bradycardia with occasional premature ventricular complexes Rightward axis Septal infarct, age undetermined Abnormal ECG Compared to ECG 09/24/2021 16:53:33 Sinus rhythm no longer present Myocardial infarct finding still present Electronically Signed On 10-06-22 11:46:05 CDT by Allen Brock
== END 2022-10-04 03:09 | disposition home or self-care (01) ==
LOC: ER 21:07
DX: S39.012A Strain of muscle, fascia and tendon of lower back, initial encounter (principal); R07.9 Chest pain, unspecified; T42.4X5A Adverse effect of benzodiazepines, initial encounter; W18.30XA Fall on same level, unspecified, initial encounter; I10 Essential (primary) hypertension; F17.210 Nicotine dependence, cigarettes, uncomplicated; Z91.018 Allergy to other foods; Z91.040 Latex allergy status; Z91.048 Other nonmedicinal substance allergy status
CPT/HCPCS: 96361; 93005; 85025; 80048; 36415; 83735; 85610; 80076; 85730; 81003; 84484 ×2; 72131; 70450; 72125; 72128; 71045; 96375; 96374; 99285; J3360; J3010; J2405; J7030

== ENCOUNTER 2023-09-26 15:41 | Emergency (ER) | payer OTHER ==
[2023-09-26] MEDS ORDERED: HYDROCODONE/APAP 10/325 TAB ONE (16:02)
--- NOTE | 2023-09-26 18:03 | RAD REPORT ---
EXAM DESCRIPTION: RAD - Pelvis - 09/26/2023 5:50 pm CLINICAL HISTORY: PAIN COMPARISON: <Comparisons> FINDINGS: No fracture, dislocation or radiographic evidence of AVN. IMPRESSION: Negative study.
--- NOTE | 2023-09-26 18:03 | RAD REPORT ---
EXAM DESCRIPTION: RAD - Chest Single View - 09/26/2023 5:50 pm CLINICAL HISTORY: DYSPNEA Chest pain. COMPARISON: <Comparisons> FINDINGS: Portable technique limits examination quality. The lungs are grossly clear. The heart is normal in size. No displaced fractures. IMPRESSION: No acute intrathoracic process suspected.
--- NOTE | 2023-09-26 18:04 | RAD REPORT ---
EXAM DESCRIPTION: RAD - Femur Left - 09/26/2023 5:50 pm CLINICAL HISTORY: PAIN COMPARISON: <Comparisons> FINDINGS: No acute fracture or dislocation seen.
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
[2023-09-26 18:32] VITALS: BP 110/70; TEMP 97.5; O2SAT 100
== END 2023-09-26 18:15 | disposition home or self-care (01) ==
LOC: ER 15:41
DX: M25.552 Pain in left hip (principal)
CPT/HCPCS: 71045; 72170; 99283

== ENCOUNTER 2024-01-29 15:13 | Emergency (ER) | payer OTHER ==
--- NOTE | 2024-01-29 16:56 | RAD REPORT ---
EXAM: C Spine Wo Con HISTORY: Left radiculopathy. Neck pain COMPARISON: 2022 TECHNIQUE: Multiple contiguous axial images were obtained in a CT of the cervical spine without contr ast. Sagittal and coronal reformats were performed. One or more of the following dose reduction techniques were used: Automated exposure control, adjustment of the mA and kV according to patient si ze, and iterative reconstruction. Unless otherwise specified, incidental findings do not require dedicated imaging follow-up. FINDINGS: No fracture seen. No dislocation Mild chronic posterior subluxation C3 on C4.. Oxsmw-xe-dpjrihbn central disc herniation C3-4. Spondylosis C4-5 results in mild to moderate narrowing left neural foramina. Right posterior lateral disc osteophyte complex C5-6 results in moderate narrowing of the right neura l foramina. IMPRESSION: No fracture seen. Cecut-qz-hwudevqy central disc herniation C3-4 Spondylosis C4-5 results in mild to moderate left foraminal stenosis Right posterior lateral disc herniation C5-6. Nonemergent MRI cervical spine recommended for further evaluation.
[2024-01-29] MEDS ORDERED: KETOROLAC 30 MG/ML INJ ONE (17:01)
[2024-01-29] MEDS ORDERED: CYCLOBENZAPRINE 10 MG TAB ONE (17:01)
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
[2024-01-29 17:30] VITALS: TEMP 98.1
[2024-01-29 17:31] VITALS: BP 140/76; O2SAT 96
== END 2024-01-29 17:24 | disposition home or self-care (01) ==
LOC: ER 15:13
DX: M54.2 Cervicalgia (principal); I10 Essential (primary) hypertension
CPT/HCPCS: 72125; 96372; 99284

== ENCOUNTER 2024-06-02 22:00 | Emergency (ER) | payer OTHER ==
[2024-06-02] MEDS ORDERED: PROMETHAZINE 25 MG TABLET ONE (22:30)
[2024-06-02] MEDS ORDERED: methocarbamoL 750 MG TAB ONE (22:30)
[2024-06-02] MEDS ORDERED: KETOROLAC 30 MG/ML INJ ONE (22:30)
[2024-06-02] MEDS ORDERED: HYDROCODONE/APAP 5/325 MG TAB ONE (22:30)
--- NOTE | 2024-06-03 00:11 | RAD REPORT ---
PROCEDURE: CT Cervical Spine Without Intravenous Contrast CLINICAL INDICATION: The patient is 54 years old and is Male; Neck pain and left arm pain. TECHNIQUE: Axial computed tomography images of the cervical spine without intravenous contrast. Sagittal and c oronal reformatted images were created and reviewed. This CT exam was performed using one or more of the following dose reduction techniques: automated exposure control, adjustment of the mA and/or kV according to patient size, and/or use of iterative reconstruction technique. COMPARISON: CT Cervical spine 01/29/2024. FINDINGS: VERTEBRAE: Interval ACDF changes involving the C3-4 levels with disc spacer demonstrated. No eviden ce of hardware fracture, failure, or loosening. No acute fracture or acute vertebral body height loss. No significant subluxation. DISCS/SPINAL CANAL/NEURAL FORAMINA: Multilevel degenerative changes, greatest at the C5-6 and C6-7 levels. Mild multilevel bony neuroforaminal narrowing, greatest at the right C3-4, C5-6, and C6-7 levels. No high-grade bony spinal canal stenosis. SOFT TISSUES: Unremarkable No abnormal prevertebral soft tissue swelling. SINUSES: Right larger than left maxillary sinus retention cysts. LUNG APICES: Moderate right and trace left biapical scarring and emphysematous changes. OTHER FINDINGS: Dens is intact. No dislocation. Craniocervical orientation is normal. IMPRESSION: 1. Interval ACDF changes involving the C3-4 levels with disc spacer demonstrated. No evidence of clayton rdware fracture, failure, or loosening. 2. Multilevel degenerative changes, but no acute osseous abnormality. No high-grade bony spinal can al or neuroforaminal stenosis. Electronically signed by: Brooks Miller MD 06/02/2024 11:37 PM CDT Due to temporary technical issues with the PACS/[employer] reporting system, reports are being johnson d by the in-house radiologist without review as a courtesy to ensure prompt reporting the interpreting radiologist is fully responsible for the content of the report. Transcribed Date/Time: 06/03/2024 12:11 AM
[2024-06-03] MEDS ORDERED: predniSONE 20 MG TAB ONE (00:34)
[2024-06-03] MEDS ORDERED: MORPHINE 4 MG/ML SYR ONE (00:35)
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
[2024-06-03 00:54] VITALS: TEMP 98.3
[2024-06-03 00:56] VITALS: O2SAT 96
[2024-06-03 00:57] VITALS: BP 130/87
== END 2024-06-03 00:48 | disposition home or self-care (01) ==
LOC: ER 22:00
DX: M54.12 Radiculopathy, cervical region (principal); Z72.0 Tobacco use
CPT/HCPCS: 72125; 96372; 99284; Q0169; J7512